=== PATIENT | female | born 1965 | race Caucasian/White ===

== ENCOUNTER 2016-10-12 07:07 | Inpatient (IN) | payer OTHER ==
[2016-10-12] MEDS ORDERED: HYDROmorphone INJ* 1 MG/ML CARPUJECT SYRINGE IV ONE (07:50)
[2016-10-12] MEDS ORDERED: NS 0.9% 1000 ML* 3,000 ML IV ONE (07:50)
[2016-10-12] MEDS ORDERED: Ondansetron INJ* 2 MG/ML VIAL IV ONE (07:50)
[2016-10-12] MEDS ORDERED: Ondansetron INJ* 2 MG/ML VIAL ONE ×2 (08:10→21:13)
[2016-10-12 08:17] LABS: Add Diff/Slide Review? Slide Review Added; Comments Flag Yes; Hematocrit 38 % (35-47); Hemoglobin 12.1 g/dl (12.0-16.0); Mean Corpuscular HGB Conc 32 g/dl (31-36); Mean Corpuscular Hemoglobin 25 pg (27-31); Mean Corpuscular Volume 79 fL (80-97); Red Blood Count 4.84 10^6/ul (4.0-5.4); Red Cell Distribution Width 16 % (10.5-15); White Blood Count 12.5 10^3/ul (3.5-10.8)
[2016-10-12 08:23] LABS: ALT 12 U/L (7-52); AST 14 U/L (13-39); Albumin 3.5 g/dL (3.2-5.2); Alkaline Phosphatase 108 U/L (34-104); Amylase 18 U/L (29-103); Anion Gap 9 mmol/L (2-11); Blood Urea Nitrogen 13 mg/dL (6-24); C Reactive Protein 38.31 mg/L (< 5.00); CO2 Carbon Dioxide 27 mmol/L (22-32); Calcium 9.4 mg/dL (8.6-10.3); Chloride 94 mmol/L (101-111); Creatine Kinase 67 U/L (10-223); EGFR African American 96.7 (>60); EGFR Non-African American 75.2 (>60); Globulin 3.9 g/dL (2-4); Lipase 12 U/L (11.0-82.0); Potassium 4.4 mmol/L (3.5-5.0); Sodium 130 mmol/L (133-145); Total Protein 7.4 g/dL (6.4-8.9)
[2016-10-12 08:27] LABS: Troponin I 0.01 ng/mL (<0.04)
[2016-10-12 08:31] LABS: Glucose 671 mg/dL (70-100)
--- NOTE | 2016-10-12 08:38 | RAD ---
HISTORY: Cough, chest pain, pneumonia COMPARISONS: May 16, 2015 VIEWS: 2: Frontal and lateral views of the chest. FINDINGS: CARDIOMEDIASTINAL SILHOUETTE: The cardiomediastinal silhouette is normal. JEANA: The jeana are normal. PLEURA: The costophrenic angles are sharp. No pleural abnormalities are noted. LUNG PARENCHYMA: The lung volumes are low. The lungs are clear. ABDOMEN: The upper abdomen is clear. There is no subphrenic gas. BONES AND SOFT TISSUES: No bone or soft tissue abnormalities are noted. OTHER: None. IMPRESSION: LOW LUNG VOLUMES. NO ACTIVE CARDIOPULMONARY DISEASE.
--- NOTE | 2016-10-12 08:56 | RAD ---
CLINICAL HISTORY: Right flank pain, renal calculus COMPARISON: None TECHNIQUE: Multiple contiguous axial CT scans were obtained of the abdomen and pelvis, without intravenous contrast enhancement. Coronal and sagittal multiplanar reformations are submitted for review. Oral contrast was not administered. FINDINGS: The study is limited by the lack of intravenous contrast. This limits evaluation of the solid organs and vasculature. LUNG BASES: The lung bases are clear. LIVER: The liver is normal in shape, size, contour, and attenuation. There is perihepatic ascites. BILE DUCTS: There is no intrahepatic or extrahepatic biliary dilatation. GALLBLADDER: A gallstone is noted. There is no pericholecystic inflammatory change. PANCREAS: The pancreas is normal, without mass or ductal dilatation. SPLEEN: Normal in size and appearance. UPPER GI TRACT: Evaluation of the gastrointestinal tract is limited by incomplete gastric distention. The upper GI tract is unremarkable. SMALL BOWEL AND MESENTERY: There is diffuse distention of small bowel. There is transitional decompressed distal ileum within a hernia sac of a right inguinal hernia. COLON: There is scattered diverticula of the descending colon. ADRENALS: Normal bilaterally. KIDNEYS: The kidneys are normal in shape, size, contour, and axis. There is no hydronephrosis or nephrolithiasis. Vascular calcifications are noted in the pelvis. BLADDER: The bladder is smooth in contour. PELVIC ORGANS: The uterus and adnexa are grossly normal for technique. AORTA: The aorta is normal. IVC: Unremarkable LYMPH NODES: There is no lymphadenopathy by size criteria. ABDOMINAL WALL: There is a right inguinal hernia containing small bowel with transition to decompressed small bowel in the hernia sac. BONES AND SOFT TISSUES: There are mild diffuse degenerative changes. OTHER: As noted above, there is a small amount of perihepatic ascites. IMPRESSION: 1. THERE IS MILD DISTENTION OF THE SMALL BOWEL WITH TRANSITION TO DECOMPRESSED SMALL BOWEL WITHIN A RIGHT INGUINAL HERNIA, WHICH MAY INDICATE EARLY OR PARTIAL OBSTRUCTION AT THE LEVEL OF THE HERNIA SAC.. 2. SMALL AMOUNT OF PERIHEPATIC ASCITES. 3. NO HYDRONEPHROSIS OR NEPHROLITHIASIS. 4. CHOLELITHIASIS
[2016-10-12] MEDS ORDERED: Insulin REGULAR(*) 1 UNITS UNIT IV PUSH ONE ×2 (09:12→12:10)
[2016-10-12 09:54] LABS: Urine Bacteria Absent (Absent); Urine Bilirubin Negative (Negative); Urine Glucose 3+(>=500 mg/dL) (Negative); Urine Nitrite Negative (Negative); Venous Bicarbonate HCO3 21.8 mmol/L (24-28)
[2016-10-12] MEDS ORDERED: cefTRIAXone(*) 1 GM in NS 0.9% 50 ML* 50 ML IVPB ONE (11:20)
[2016-10-12] MEDS ORDERED: cefTRIAXone VIAL(*) 1,000 MG in NS 0.9% 50 ML* 50 ML IVPB ONE (11:20)
[2016-10-12] MEDS ORDERED: NS 0.9% 1000 ML* 2,000 ML IV ONE (11:21)
[2016-10-12] MEDS ORDERED: cefTRIAXone(*) 1 GM ADVAN/BAG ONE (11:47)
[2016-10-12] MEDS ORDERED: cefTRIAXone VIAL(*) 1,000 MG in NS 0.9% 50 ML* 50 ML IVPB SCH (12:10)
[2016-10-12] MEDS ORDERED: Insulin GLARGINE(*) 1 UNITS UNIT SUBCUT ONE (12:10)
[2016-10-12] MEDS ORDERED: Dextrose 50% Syringe 50 ML* 25 GM/50 ML SYRINGE IV PUSH PRN (12:11)
[2016-10-12] MEDS ORDERED: NS 0.9% 1000 ML* 1,000 ML IV SCH (12:15)
[2016-10-12] MEDS: Morphine INJ* 2 MG/ML 1 ML CARPUJECT IV PRN (14:08)
[2016-10-12] MEDS: Ondansetron INJ* 2 MG/ML VIAL IV PRN (14:08)
[2016-10-12] MEDS: Heparin VIAL(*) 5000 UNITS/ML VIAL (FIVE THOUSAND) SUBCUT SCH ×2 (14:13→23:08)
--- NOTE | 2016-10-12 14:49 | HP ---
ADMISSION HISTORY AND PHYSICAL: DATE OF ADMISSION: 10/12/16 PRIMARY CARE PROVIDER: Unknown. ADMITTING PROVIDER: DAREN Davis CONSULTING SURGEON: Dr. Serjio Valdes. SUPERVISING PHYSICIAN: Dr. Khai Lam.* (DICTATED BY DAREN DAVIS) CHIEF COMPLAINT: Abdominal pain and intractable vomiting. HISTORY OF PRESENT ILLNESS: This is a 51-year-old female with a history of insulin- dependent diabetes, who presented to the emergency department with sudden onset right lower quadrant abdominal pain and intractable vomiting. The patient reports that she initially had some right lower quadrant pain about a week ago, but this spontaneously resolved and then the pain suddenly recurred at approximately 3 a.m. this morning with associated severe nausea and vomiting. Denies associated shortness of breath. She states that her last bowel movement was yesterday, which generally suffers from chronic constipation. The patient states that she has been afebrile but does say that she has been having some difficulty urinating recently. She denies any other recent illnesses. The patient states that she has a wound on her right heel and has noted some increased redness in the area over the last couple of weeks. There has been no associated drainage, however. She denies any associated pain, but she does have significant peripheral neuropathy. PAST MEDICAL HISTORY: 1. Insulin-dependent diabetes. 2. Peripheral neuropathy. 3. Remote history of substance abuse. PAST SURGICAL HISTORY: Left toe surgery. HOME MEDICATIONS: 1. Lantus 100 units each morning. 2. Gabapentin 600 mg p.o. 3 times daily. 3. Cymbalta 30 mg p.o. daily. SOCIAL HISTORY: The patient quit smoking about 2 weeks ago. She has about a 30 - pack-year smoking history. Denies regular alcohol consumption. She does have a history of substance abuse but denies any current use. She lives at home with her , daughter, granddaughter, and son-in-law. REVIEW OF SYSTEMS: As noted above in HPI and otherwise negative. PHYSICAL EXAMINATION GENERAL: This is an ill-appearing middle-aged female, who is lethargic but appears slightly uncomfortable, accompanied by her daughter. VITAL SIGNS: Initially, temperature 97.6 degrees Fahrenheit, pulse 72 beats per minute, respiratory rate 15 per minute, oxygen saturation 96% on room air, blood pressure 161/76 mmHg. HEENT: Head is normocephalic and atraumatic. RESPIRATORY: Lungs are clear to auscultation without wheezes, crackles, or rhonchi. CARDIOVASCULAR: Heart has regular rate and rhythm without murmurs, rubs, or gallops. ABDOMEN: Hypoactive bowel sounds present. The patient does have tenderness to palpation in the right lower quadrant and right flank region. She also has a noted fullness in the right inguinal region, which is also tender to palpation. EXTREMITIES: No lower extremity edema. SKIN: Limited exam, shows no concerning rashes or lesions. LABORATORY DATA: CBC shows a white blood cell count of 12,500, hemoglobin of 12.1, and platelet count of 299,000. VBG shows a pH of 7.31, pCO2 is normal at 44, and a bicarb of 21.8. Comprehensive metabolic panel is significant for a sodium of 130 mmol/L, potassium 4.4 mmol/L. Serum bicarb was 27 at the time of admission, BUN of 13, creatinine of 0.81, and estimated GFR of 75. Random glucose of 671 mg/dL. Total bilirubin of 2.0, alk phos of 108. CRP is 38. Lipase is negative. Beta HCG is negative. Urinalysis is positive for 2+ protein, trace ketones, 1+ blood, 3+ leuk esterase , 3+ white blood cells, 1+ red blood cells, and 3+ glucose. IMAGING: Chest x-ray shows no acute process. CT of the abdomen and pelvis shows mild distention of the small bowel with transition to decompressed small bowel within the right inguinal hernia, which may indicate early or partial obstruction at the level of the hernia sac. She also has a small amount of perihepatic ascites, no hydro-nephrolithiasis noted but she does have some cholelithiasis. ASSESSMENT AND PLAN: This is a 51-year-old female with a history of insulin- dependent diabetes, who presents in mild DKA with concern for partial small bowel obstruction secondary to an incarcerated hernia. 1. Partial small bowel obstruction with evidence of incarcerated hernia - consult call made to Dr. Serjio Valdes to please evaluate the patient. At this time, we will maintain n.p.o. status. No evidence of ischemic bowel as her lactic acid is normal at 0.9. She does have some tenderness to palpation, but it is certainly as not out of proportion with the remainder of her presentation. We will control symptoms with antiemetics and continue IV fluids. 2. DKA - this appears to be mild, pH was 7.31 on venous blood gas collected several hours ago. Initial glucose was 671 and an initial lab actually does not show an elevated anion gap. She received 10 units IV of insulin and fluids. Her glucose has improved down to 407 mg/dL. We will plan to repeat a basic metabolic panel at this time. They did not believe that she will need an insulin drip in order to correct this. We will give her 60% of her usual Lantus as she will be n.p.o. likely the rest of today and an additional bolus of 10 units of regular insulin, continue to monitor her glucose every 2 hours, and correct continued hyperglycemia on a sliding scale with lispro. We will also check a hemoglobin A1c to see what her baseline camara. 3. Suspected urinary tract infection - urinalysis is suggestive of a urinary tract infection. We will empirically start ceftriaxone until culture results are available. 4. Right foot wound - the patient does have some breakdown over her right heel with mild surrounding erythema, no drainage appreciated. Ceftriaxone should appropriately cover for most staph and strep species. We will keep the area covered but does not appear to be significantly infected at this time. 5. Code status - the patient is full code. 6. DVT prophylaxis. She is at moderate risk for DVT and will be placed on heparin 5000 units q.8 hours. 7. Healthcare proxy is the patient's . DISPOSITION: The patient is being admitted to inpatient medical service for mild DKA as well as the partial small bowel obstruction with concern for incarcerated right inguinal hernia with pending surgical consultation. Anticipated length of stay is greater than 2 days. DAREN DAVIS [id number]/[facility] #: [id number] DEWEY
--- NOTE | 2016-10-12 14:57 | ED ---
Shannan Blanca Matthew, scribed for Gus Hobbs MD on 10/12/16 at 0757 . Back Pain - HPI Summary HPI Summary: A 51 y/o female presents to the ED with lower back pain since a week ago. The pain is rated 10/10 in severity, and radiates into the groin. Associated symptoms include vomiting since this morning, chills, and cough since two weeks ago. The patient denies dysuria, hematuria, fever, diarrhea and recent travel. Her pain worsens with coughing and she only has chest pain with vomiting. PMHx includes diabetes. She also has a chronic right foot erythema and her LEs bilaterally are chronically numb. - History of Current Complaint Chief Complaint: EDChestPainROMI Stated Complaint: CHEST PAIN Time Seen by Provider: 10/12/16 07:35 Hx Obtained From: Patient, Family/Car Lot Attendant - Daughter Hx Last Menstrual Period: 04/13/15 Onset/Duration: Gradual Onset, Lasting Weeks - 1, Still Present Onset/Duration: Started Weeks Ago - 1, Atraumatic, Still Present Timing: Constant Back Pain Location: Is Discrete @ - lower back Severity Initially: Moderate Severity Currently: Moderate Pain Intensity: 10 Pain Scale Used: 0-10 Numeric Aggravating Symptom(s): Cough Alleviating Symptom(s): Nothing Associated Signs And Symptoms: Positive: Flank Pain - right, Other - Vomiting, Chills. Negative: Fever - Allergies/Home Medications Allergies/Adverse Reactions: Allergies Allergy/AdvReac Type Severity Reaction Status Date / Time Miconazole [From Monistat] Allergy Blisters Verified 07/10/16 09:40 Home Medications: Home Medications DULoxetine DR CAP* [Cymbalta CAP*] 30 mg PO DAILY 10/12/16 [History Confirmed ] Gabapentin TAB(NF) [Neurontin 600 mg TAB(NF)] 600 mg PO TID 10/12/16 [History Confirmed 10/12/16] PMH/Surg Hx/FS Hx/Imm Hx Endocrine/Hematology History: Reports: Hx Diabetes - type 2 Denies: Hx Anticoagulant Therapy, Hx Blood Disorders, Hx Blood Transfusions, Hx Bone Marrow Disease, Hx Thyroid Disease, Hx Anemia, Hx Unexplained Bleeding Cardiovascular History: Denies: Hx Hypertension, Hx Pacemaker/ICD Respiratory History: Denies: Hx Asthma, Hx Chronic Obstructive Pulmonary Disease (COPD) GI History: Denies: Hx Ulcer History: Denies: Hx Renal Disease Sensory History: Reports: Hx Contacts or Glasses Denies: Hx Hearing Aid Opthamlomology History: Reports: Hx Contacts or Glasses Psychiatric History: Denies: Hx Panic Disorder - Surgical History Surgery Procedure, Year, and Place: LEFT FOOT [id number] Infectious Disease History: Denies: Hx Hepatitis, Hx Human Immunodeficiency Virus (HIV), History Other Infectious Disease, Traveled Outside the [place] in Last 30 Days - Family History Known Family History: Positive: Diabetes - Social History Alcohol Use: None Substance Use Type: Reports: None Smoking Status (MU): Never Smoked Tobacco Review of Systems Positive: Chills. Negative: Fever Eyes: Negative ENT: Negative Positive: Chest Pain - Only w/ vomiting Positive: Cough Positive: Vomiting Genitourinary: Negative Negative: dysuria, hematuria Positive: Myalgia - lower back pain Skin: Other - Right foot erythema Neurological: Negative Psychological: Normal All Other Systems Reviewed And Are Negative: Yes Physical Exam - Summary Physical Exam Summary: The patient is in mild distress. The skin is diaphoretic. HEENT: The head is normocephalic and atraumatic. The pupils are equal and reactive. The conjunctivae are clear and without drainage. Nares are patent and without drainage. Mouth reveals dryt mucous membranes and the throat is without erythema and exudate. The external ears are intact. The ear canals are patent and without drainage. The tympanic membranes are intact. Neck is supple with full range of motion and non-tender. There are no carotid bruits. There is no neck vein distension. Respiratory: Chest is non-tender. Lungs are clear to auscultation and breath sounds are symmetrical and equal. Cardiovascular: Heart is regular rate and rhythm. There is no murmur or rub auscultated. There is no peripheral edema and pulses are symmetrical and equal. Abdomen: The abdomen is soft and non-tender. There are normal bowel sounds heard in all four quadrants and there is no organomegaly palpated. The patient has right CVA tenderness. Musculoskeletal: Extremities are non-tender with full range of motion. There is good capillary refill 2+. There is no peripheral edema or calf tenderness elicited. The patient has good distal pulses. She has erythema of the right foot , which is warm to touch and involves the heel. Neurological: Patient is alert and oriented to person, place and time. The patient has symmetrical motor strength in all four extremities. Cranial nerves are grossly intact. Deep tendon reflexes are symmetrical and equal in all four extremities. Psychiatric: The patient is anxious. The patient's eyes were closed when talking to her. Her daughter answered all of the questions. Triage Information Reviewed: Yes Vital Signs On Initial Exam: Initial Vitals Temp Pulse Resp BP Pulse Ox 97.6 F 72 15 161/76 96 10/12/16 07:57 10/12/16 07:57 10/12/16 07:57 10/12/16 07:57 10/12/16 07:57 Vital Signs Reviewed: Yes Diagnostics - Vital Signs Vital Signs Temp Pulse Resp BP Pulse Ox 10/12/16 08:06 10 10/12/16 07:57 97.6 F 72 15 161/76 96 - Laboratory Lab Results: Lab Results 10/12/16 10/12/16 10/12/16 Range/Units 07:35 07:35 07:35 WBC 12.5 H (3.5-10.8) 10^3/ul RBC 4.84 (4.0-5.4) 10^6/ul Hgb 12.1 (12.0-16.0) g/dl Hct 38 (35-47) % MCV 79 L (80-97) fL MCH 25 L (27-31) pg MCHC 32 (31-36) g/dl RDW 16 H (10.5-15) % Plt Count 299 (150-450) 10^3/ul MPV Not Reportable Neut % (Auto) 89.1 H (38-83) % Lymph % (Auto) 6.4 L (25-47) % Woodson % (Auto) 3.8 (1-9) % Eos % (Auto) 0.3 (0-6) % Baso % (Auto) 0.4 (0-2) % Absolute Neuts (auto) 11.2 H (1.5-7.7) 10^3/ul Absolute Lymphs (auto) 0.8 L (1.0-4.8) 10^3/ul Absolute Monos (auto) 0.5 (0-0.8) 10^3/ul Absolute Eos (auto) 0 (0-0.6) 10^3/ul Absolute Basos (auto) 0.1 (0-0.2) 10^3/ul Absolute Nucleated RBC 0.02 10^3/ul Nucleated RBC % 0.2 VBG pH (7.33-7.43) VBG pCO2 (41-51) mmHg VBG pO2 (35-45) mmHg VBG HCO3 (24-28) mmol/L VBG O2 Saturation (70-80) % VBG Base Excess (0-4) Sodium 130 L (133-145) mmol/L Potassium 4.4 (3.5-5.0) mmol/L Chloride 94 L (101-111) mmol/L Carbon Dioxide 27 (22-32) mmol/L Anion Gap 9 (2-11) mmol/L BUN 13 (6-24) mg/dL Creatinine 0.81 (0.51-0.95) mg/dL Est GFR ( Amer) 96.7 (>60) Est GFR (Non-Af Amer) 75.2 (>60) BUN/Creatinine Ratio 16.0 (8-20) Glucose 671 H* (70-100) mg/dL Lactic Acid 0.9 (0.5-2.0) mmol/L Calcium 9.4 (8.6-10.3) mg/dL Total Bilirubin 2.00 H (0.2-1.0) mg/dL AST 14 (13-39) U/L ALT 12 (7-52) U/L Alkaline Phosphatase 108 H (34-104) U/L Total Creatine Kinase 67 (10-223) U/L Troponin I 0.01 (<0.04) ng/mL C-Reactive Protein 38.31 H (< 5.00) mg/L B-Natriuretic Peptide ( - 100) pg/mL Total Protein 7.4 (6.4-8.9) g/dL Albumin 3.5 (3.2-5.2) g/dL Globulin 3.9 (2-4) g/dL Albumin/Globulin Ratio 0.9 L (1-3) Amylase 18 L (29-103) U/L Lipase 12 (11.0-82.0) U/L Beta HCG, Quant < 0.60 mIU/mL Urine Color Urine Appearance Urine pH (5-9) Ur Specific [place] (1.010-1.030) Urine Protein (Negative) Urine Ketones (Negative) Urine Blood (Negative) Urine Nitrate (Negative) Urine Bilirubin (Negative) Urine Urobilinogen (Negative) Ur Leukocyte Esterase (Negative) Urine WBC (Auto) (Absent) Urine RBC (Auto) (Absent) Ur Squamous Epith Cells (Absent) Urine Bacteria (Absent) Urine Glucose (Negative) 10/12/16 10/12/16 10/12/16 Range/Units 07:35 08:41 08:41 WBC (3.5-10.8) 10^3/ul RBC (4.0-5.4) 10^6/ul Hgb (12.0-16.0) g/dl Hct (35-47) % MCV (80-97) fL MCH (27-31) pg MCHC (31-36) g/dl RDW (10.5-15) % Plt Count (150-450) 10^3/ul MPV Neut % (Auto) (38-83) % Lymph % (Auto) (25-47) % Woodson % (Auto) (1-9) % Eos % (Auto) (0-6) % Baso % (Auto) (0-2) % Absolute Neuts (auto) (1.5-7.7) 10^3/ul Absolute Lymphs (auto) (1.0-4.8) 10^3/ul Absolute Monos (auto) (0-0.8) 10^3/ul Absolute Eos (auto) (0-0.6) 10^3/ul Absolute Basos (auto) (0-0.2) 10^3/ul Absolute Nucleated RBC 10^3/ul Nucleated RBC % VBG pH 7.31 L (7.33-7.43) VBG pCO2 44 (41-51) mmHg VBG pO2 84 H (35-45) mmHg VBG HCO3 21.8 L (24-28) mmol/L VBG O2 Saturation 97.7 H (70-80) % VBG Base Excess -3.9 L (0-4) Sodium (133-145) mmol/L Potassium (3.5-5.0) mmol/L Chloride (101-111) mmol/L Carbon Dioxide (22-32) mmol/L Anion Gap (2-11) mmol/L BUN (6-24) mg/dL Creatinine (0.51-0.95) mg/dL Est GFR ( Amer) (>60) Est GFR (Non-Af Amer) (>60) BUN/Creatinine Ratio (8-20) Glucose (70-100) mg/dL Lactic Acid (0.5-2.0) mmol/L Calcium (8.6-10.3) mg/dL Total Bilirubin (0.2-1.0) mg/dL AST (13-39) U/L ALT (7-52) U/L Alkaline Phosphatase (34-104) U/L Total Creatine Kinase (10-223) U/L Troponin I (<0.04) ng/mL C-Reactive Protein (< 5.00) mg/L B-Natriuretic Peptide 76 ( - 100) pg/mL Total Protein (6.4-8.9) g/dL Albumin (3.2-5.2) g/dL Globulin (2-4) g/dL Albumin/Globulin Ratio (1-3) Amylase (29-103) U/L Lipase (11.0-82.0) U/L Beta HCG, Quant mIU/mL Urine Color Yellow Urine Appearance Cloudy Urine pH 5.0 (5-9) Ur Specific [place] 1.032 H (1.010-1.030) Urine Protein 2+(100 mg/dl) H (Negative) Urine Ketones Trace H (Negative) Urine Blood 1+ H (Negative) Urine Nitrate Negative (Negative) Urine Bilirubin Negative (Negative) Urine Urobilinogen Negative (Negative) Ur Leukocyte Esterase 3+ H (Negative) Urine WBC (Auto) 3+(>20/hpf) H (Absent) Urine RBC (Auto) 1+(3-5/hpf) H (Absent) Ur Squamous Epith Cells Present H (Absent) Urine Bacteria Absent (Absent) Urine Glucose 3+(>=500 mg/dl) H (Negative) 10/12/16 Range/Units 11:35 WBC (3.5-10.8) 10^3/ul RBC (4.0-5.4) 10^6/ul Hgb (12.0-16.0) g/dl Hct (35-47) % MCV (80-97) fL MCH (27-31) pg MCHC (31-36) g/dl RDW (10.5-15) % Plt Count (150-450) 10^3/ul MPV Neut % (Auto) (38-83) % Lymph % (Auto) (25-47) % Woodson % (Auto) (1-9) % Eos % (Auto) (0-6) % Baso % (Auto) (0-2) % Absolute Neuts (auto) (1.5-7.7) 10^3/ul Absolute Lymphs (auto) (1.0-4.8) 10^3/ul Absolute Monos (auto) (0-0.8) 10^3/ul Absolute Eos (auto) (0-0.6) 10^3/ul Absolute Basos (auto) (0-0.2) 10^3/ul Absolute Nucleated RBC 10^3/ul Nucleated RBC % VBG pH (7.33-7.43) VBG pCO2 (41-51) mmHg VBG pO2 (35-45) mmHg VBG HCO3 (24-28) mmol/L VBG O2 Saturation (70-80) % VBG Base Excess (0-4) Sodium (133-145) mmol/L Potassium (3.5-5.0) mmol/L Chloride (101-111) mmol/L Carbon Dioxide (22-32) mmol/L Anion Gap (2-11) mmol/L BUN (6-24) mg/dL Creatinine (0.51-0.95) mg/dL Est GFR ( Amer) (>60) Est GFR (Non-Af Amer) (>60) BUN/Creatinine Ratio (8-20) Glucose 407 H (70-100) mg/dL Lactic Acid (0.5-2.0) mmol/L Calcium (8.6-10.3) mg/dL Total Bilirubin (0.2-1.0) mg/dL AST (13-39) U/L ALT (7-52) U/L Alkaline Phosphatase (34-104) U/L Total Creatine Kinase (10-223) U/L Troponin I (<0.04) ng/mL C-Reactive Protein (< 5.00) mg/L B-Natriuretic Peptide ( - 100) pg/mL Total Protein (6.4-8.9) g/dL Albumin (3.2-5.2) g/dL Globulin (2-4) g/dL Albumin/Globulin Ratio (1-3) Amylase (29-103) U/L Lipase (11.0-82.0) U/L Beta HCG, Quant mIU/mL Urine Color Urine Appearance Urine pH (5-9) Ur Specific [place] (1.010-1.030) Urine Protein (Negative) Urine Ketones (Negative) Urine Blood (Negative) Urine Nitrate (Negative) Urine Bilirubin (Negative) Urine Urobilinogen (Negative) Ur Leukocyte Esterase (Negative) Urine WBC (Auto) (Absent) Urine RBC (Auto) (Absent) Ur Squamous Epith Cells (Absent) Urine Bacteria (Absent) Urine Glucose (Negative) Result Diagrams: 10/12/16 07:35 10/12/16 07:35 Lab Statement: Any lab studies that have been ordered have been reviewed, and results considered in the medical decision making process. - Radiology CXR Xray Interpretation: No Acute Changes - IMPRESSION: LOW LUNG VOLUMES. NO ACTIVE CARDIOPULMONARY DISEASE. Radiology Interpretation Completed By: Radiologist - CT A/P W/O CT CT Interpretation: Positive (See Comments) - IMPRESSION: 1. THERE IS MILD DISTENTION OF THE SMALL BOWEL WITH TRANSITION TO DECOMPRESSED SMALL BOWEL WITHIN A RIGHT INGUINAL HERNIA, WHICH MAY INDICATE EARLY OR PARTIAL OBSTRUCTION AT THE LEVEL OF THE HERNIA SAC.. 2. SMALL AMOUNT OF PERIHEPATIC ASCITES. 3. NO HYDRONEPHROSIS OR NEPHROLITHIASIS. 4. CHOLELITHIASIS CT Interpretation Completed By: Radiologist Re-Evaluation - Re-Evaluation First Eval Re-Evaluation Time: 11:21 Change: Unchanged Comment: The patient continues to have right sided pain. Julio Cesar consult patient for possible admission. Back Pain Course/Dx - Course Assessment/Plan: A 51 y/o female presents to the ED with lower back pain since a week ago. Associated symptoms include vomiting since this morning, chills, and cough since two weeks ago. The patient denies dysuria, hematuria, fever, diarrhea and recent travel. CXR shows low lung volumes. no active cardiopulmonary disease. CT A/P W/O CT shows there is mild distention of the small bowel with transition to decompressed small bowel within a right inguinal hernia, which may indicate early or partial obstruction at the level of the hernia sac. Labs were reviewed. In the ED course the patient was given Dilaudid , 5L IV fluids, Insulin, Zofran, and Rocephin. Discussed the case with the hospitalist who will admit the patient into his services. - Diagnoses Differential Diagnosis/HQI/PQRI: Positive: Renal Colic, Other - obstruction, pyleonephritis, dka, dehydration Provider Diagnoses: Hyperglycemia, Abdominal pain, UTI (urinary tract infection) - Provider Notifications Discussed Care of Patient With: Serafin MERCEDES at 11:44 -- Notified of patient's history and will admit the patient. Discharge - Discharge Plan Condition: Stable Disposition: ADMITTED TO [facility] documentation as recorded by the Shannan dailey Matthew accurately reflects the service I personally performed and the decisions made by , Gus Hobbs MD.
[2016-10-12 15:36] LABS: BUN/Creatinine Ratio 15.8 (8-20); Calcium 8.4 mg/dL (8.6-10.3); EGFR Non-African American 80.9 (>60); Potassium 3.7 mmol/L (3.5-5.0)
[2016-10-12] MEDS: Insulin LISPRO* 1 UNITS UNIT SUBCUT SCH ×2 (15:44→23:10)
[2016-10-12] MEDS: PROCHLORPERAZINE INJ 5 MG/ML 2 ML VIAL IV PRN ×2 (17:01→22:04)
[2016-10-12] MEDS ORDERED: Buffered Lidocaine 1% SYR 3ML* 3 ML/SYR SYRINGE INTRADERM ONE (18:23)
[2016-10-12] MEDS ORDERED: Midazolam* 1 MG/ML 2 ML VIAL (2 MG) ONE (18:33)
[2016-10-12] MEDS ORDERED: Clindamycin 900 MG IVPREMIX(* 900 MG/50 ML SDV IV ONE (19:09)
[2016-10-12] MEDS ORDERED: Lidocaine 2% MPF* 2 ML VIAL ONE (19:21)
[2016-10-12] MEDS ORDERED: fentaNYL* 50 MCG/ML 2 ML VIAL (100 MCG VIAL) ONE ×2 (19:21→20:36)
[2016-10-12] MEDS ORDERED: Cisatracurium* 2 MG/ML MDV 10 ML ONE (19:21)
[2016-10-12] MEDS ORDERED: Dexamethasone IV* 4 MG/ML 1 ML (4 MG) ONE (19:21)
[2016-10-12] MEDS ORDERED: Propofol* 10 MG/ML 20 ML BTL IV PUSH ONE (19:21)
[2016-10-12] MEDS ORDERED: Famotidine IV* 10 MG/ML 2 ML (20 mg) ONE (19:21)
[2016-10-12] MEDS ORDERED: Insulin REGULAR(*) 1 UNITS UNIT ONE (20:41)
[2016-10-12] MEDS ORDERED: Bupivacaine 0.5% SDV PF* 30 ML VIAL ONE (21:07)
--- NOTE | 2016-10-12 21:25 | SURGPN ---
Brief Operative Note - Surgery Procedures: OPERATIVE REPORT PRE-OP: Incarcerated right groin hernia with small bowel obstruction POST-OP: Incarcerated right indirect inguinal hernia. Hernia sac not opened. PROCEDURE: open repair with mesh of incarcerated right indirect inguinal hernia SURGEON: MD Keisha ANESTHESIA: General with Local with Dr. Estrella ASST: DAREN Cantu IVF: 1400 cc crystalloid EBL: min SPECIMEN: none DRAIN: none WOUND CLASS: Clean COMPLICATIONS: none TO PACU
--- NOTE | 2016-10-12 21:33 | CONS ---
CONSULTATION REPORT: DATE OF CONSULT: 10/12/16 REFERRING PROVIDER: DAREN Lake, hospitalist. LOCATION: The patient was seen in the floor bed, room 331. REASON FOR CONSULTATION: Tender nonreducible bulge in the right groin, nausea, vomiting and abdominal pain. HISTORY OF PRESENT ILLNESS: Ms. Lesly Stockton is a 51-year-old woman with a long history of insulin-dependent diabetes, presented to the emergency room with an onset of right flank and right lower quadrant abdominal discomfort with a noted bulge in the right groin. She noted a mass in the last several days, more recently she developed nausea and vomiting and generalized abdominal discomfort. She has had no hematemesis. She has had no fevers, shakes or chills. Not had a bowel movement, although she states she only has a bowel movement once a week. She has not passed any flatus recently. She has also had some difficulty urinating recently. According to her daughter, she has had longstanding insulin-dependent diabetes and also has a long history of poor blood sugar control, with the blood sugars possibly running into 300s at times. Today, her blood sugar on presentation to the emergency room was 407. She had a normal lactic acid. Electrolytes, BUN, and creatinine were within normal limits and she is not noted to be acidotic. Urinalysis also showed some white cells, red cells, and leukocyte esterase concerning for a urinary tract infection. Due to the findings in the right groin, she underwent a CT scan of the abdomen and pelvis. I did review these images. It shows distention of the proximal small bowel with distal decompressed small bowel with the transition zone noted in what appears to be a rather large right inguinal hernia. There is a small amount of fluid around the liver but no evidence of free air. IV or oral contrast was not administered. She is being admitted to the hospitalist service. Surgical consultation was obtained for evaluation of what appears to be a right groin hernia, most likely an inguinal, but also possibility of an incarcerated right femoral hernia, with associated apparent bowel obstruction. PAST MEDICAL HISTORY: 1. Insulin-dependent diabetes. 2. Peripheral neuropathy. 3. Remote history of substance abuse. PAST SURGICAL HISTORY: Left toe surgery. She has had no abdominal surgery. MEDICATIONS: 1. Lantus 100 units each morning. 2. Gabapentin 600 mg t.i.d. 3. Cymbalta 30 mg p.o. q.h.s. ALLERGIES: She has no known drug allergies. SOCIAL HISTORY: She lives alone. She is disabled. She quit smoking about 2 weeks ago, but has a [id number] smoking history. She does not use alcohol. She has a remote history of substance abuse. She lives at home with her , daughter, and son-in-law. REVIEW OF SYSTEMS: Otherwise as above. GI: She states she has had persistent nausea and vomiting in the last several days. She has not had prior abdominal surgery. PHYSICAL EXAM: Temperature 97.6, pulse 60, blood pressure 134/69. General: She is a slender female who appears to be somewhat older than her stated age. She is somewhat disoriented due to recently receiving a narcotic. Her daughter is present at the bedside. She is oriented to person, place, and time and appropriately answers questions. HEENT: Her sclerae are anicteric. Oral mucosa was dry. Lungs: Clear to auscultation with normal respiratory effort. Heart with regular rate and rhythm without murmurs, rubs, or gallops. Abdomen: Soft, slightly distended. She had diminished bowel sounds throughout. There is no prior surgical incisions. She has tenderness without rebound, guarding, or peritoneal signs. In the right groin, she has a rather large bulge extending down into the labia, which is tender and nonreducible and quite firm. There is no overlying skin changes. This appears to be more of an inguinal hernia than a femoral hernia. I appreciate no left bulge or groin hernia. IMPRESSION: 1. Large incarcerated right groin hernia, most likely an inguinal hernia as opposed to a femoral hernia, although this is sometimes difficult to tell clinically as well as by the CT scan. This has some proximal small bowel distention and there is collapsed bowel distal to this. She has been having nausea, vomiting, generalized abdominal pain, and some free intraabdominal fluid and I suspect that this is causing a small bowel obstruction. Less likely is that she has ischemia and/or strangulation in light of her overall clinical appearance. In light of her nausea and vomiting, blood sugar elevation and her symptoms, I recommend that we proceed with a right groin exploration with hernia repair and reduction of the small bowel. 2. Possible urinary tract infection. Possible pyelonephritis, although she has no fever, only a slight white blood cell count but some of these also could be associated with nausea, vomiting, and her blood sugar elevation. I discussed this with her daughter and her. I recommended that we do proceed with a right groin incision with reduction of the hernia with possible mesh placement and repair of the hernia. If there is a bowel that has become compromised, this may require a bowel resection. I discussed this with them. If this cannot be reduced through a groin incision, may require an exploratory laparotomy with its inherent increased risks of bleeding, infection, abdominal abscess formation, injury to peritoneal and retroperitoneal structures and hernia recurrence. In addition, she is at increased risk for wound infection due to her diabetes as well as increased risk for general anesthesia. I discussed her care with Serafin Austin from the hospitalist service. She feels that she is optimized as best as possible. She is not acidotic. Her blood sugars are trending downward now that she has been treated aggressively with fluid as well as intravenous insulin, and at this point, we will proceed with the surgery this evening. CC: [facility]; Dr. Jerel Chatterjee, [facility].* [id number]/[facility] #: [id number] MTDD
[2016-10-12] MEDS ORDERED: PROCHLORPERAZINE INJ 5 MG/ML 2 ML VIAL ONE (22:03)
[2016-10-12] MEDS: NS 0.9% 1000 ML* 1,000 ML IV SCH (22:05)
[2016-10-12] MEDS ORDERED: Morphine INJ* 2 MG/ML 1 ML CARPUJECT IV PRN (22:09)
[2016-10-13] MEDS: Insulin LISPRO* 1 UNITS UNIT SUBCUT SCH ×6 (01:25→20:55)
[2016-10-13] MEDS: NS 0.9% 1000 ML* 1,000 ML IV SCH (04:50)
[2016-10-13] MEDS: Heparin VIAL(*) 5000 UNITS/ML VIAL (FIVE THOUSAND) SUBCUT SCH ×3 (05:05→22:45)
[2016-10-13] MEDS ORDERED: NS 0.9% 1000 ML* 1,000 ML IV ONE ×2 (06:40→13:01)
[2016-10-13 07:12] LABS: Hematocrit 31 % (35-47); Hemoglobin 9.9 g/dl (12.0-16.0); Mean Corpuscular HGB Conc 32 g/dl (31-36); Mean Corpuscular Hemoglobin 25 pg (27-31); Mean Corpuscular Volume 79 fL (80-97); Mean Platelet Volume 8 um3 (7.4-10.4); Red Blood Count 3.93 10^6/ul (4.0-5.4); Red Cell Distribution Width 16 % (10.5-15)
[2016-10-13 07:29] LABS: Albumin 2.7 g/dL (3.2-5.2); Calcium 7.7 mg/dL (8.6-10.3); EGFR African American 90.2 (>60); EGFR Non-African American 70.1 (>60); Globulin 2.9 g/dL (2-4); Potassium 3.8 mmol/L (3.5-5.0); Total Bilirubin 0.8 mg/dL (0.2-1.0); Total Protein 5.6 g/dL (6.4-8.9)
[2016-10-13] MEDS: Morphine INJ* 2 MG/ML 1 ML CARPUJECT IV PRN ×2 (07:53→17:22)
--- NOTE | 2016-10-13 08:18 | PN ---
Progress Note - Progress Note SOAP: Subjective: She feels much better-no abdominal pain and the nausea has resolved. She had a small BM last night but no flatus. She complains only of incisional pain He urine output was low overnight and she is receiving IV bolus now. Objective: Temp Pulse Resp BP Pulse Ox 98.2 F 72 16 131/57 100 10/13/16 07:44 10/13/16 07:44 10/13/16 07:53 10/13/16 07:44 10/13/16 07:44 Intake & Output 10/11/16 10/12/16 10/13/16 10/14/16 06:59 06:59 06:59 06:59 Intake Total 4310 Output Total 150 Balance 4160 Weight 170 lb Intake: IV Fluids 4310 0.9 700 NS (0.9%) 908 d5lr 900 lr 800 Oral 0 Output: Urine 0 Rodgers 150 Other: Date of Last Bowel 10/13/16 Movement # Bowel Movements 1 Estimated Stool Amount Small PEX: Comfortable Awake and alert Abd is soft and non-distended. There are few bowel sounds present throughout and they are normoactive, not high pitched or tinkling. There is no tenderness. Dressing in the right groin is intact and dry. Laboratory Last Values WBC 9.0 10^3/ul (3.5-10.8) 10/13/16 06:18 RBC 3.93 10^6/ul (4.0-5.4) L 10/13/16 06:18 Hgb 9.9 g/dl (12.0-16.0) L 10/13/16 06:18 Hct 31 % (35-47) L 10/13/16 06:18 MCV 79 fL (80-97) L 10/13/16 06:18 MCH 25 pg (27-31) L 10/13/16 06:18 MCHC 32 g/dl (31-36) 10/13/16 06:18 RDW 16 % (10.5-15) H 10/13/16 06:18 Plt Count 246 10^3/ul (150-450) 10/13/16 06:18 MPV 8 um3 (7.4-10.4) 10/13/16 06:18 Neut % (Auto) 88.7 % (38-83) H 10/13/16 06:18 Lymph % (Auto) 5.3 % (25-47) L 10/13/16 06:18 [place] % (Auto) 5.9 % (1-9) 10/13/16 06:18 Eos % (Auto) 0 % (0-6) 10/13/16 06:18 Baso % (Auto) 0.1 % (0-2) 10/13/16 06:18 Absolute Neuts (auto) 8.0 10^3/ul (1.5-7.7) H 10/13/16 06:18 Absolute Lymphs (auto) 0.5 10^3/ul (1.0-4.8) L 10/13/16 06:18 Absolute Monos (auto) 0.5 10^3/ul (0-0.8) 10/13/16 06:18 Absolute Eos (auto) 0 10^3/ul (0-0.6) 10/13/16 06:18 Absolute Basos (auto) 0 10^3/ul (0-0.2) 10/13/16 06:18 Absolute Nucleated RBC 0.01 10^3/ul 10/13/16 06:18 Nucleated RBC % 0.1 10/13/16 06:18 VBG pH 7.31 (7.33-7.43) L 10/12/16 08:41 VBG pCO2 44 mmHg (41-51) 10/12/16 08:41 VBG pO2 84 mmHg (35-45) H 10/12/16 08:41 VBG HCO3 21.8 mmol/L (24-28) L 10/12/16 08:41 VBG O2 Saturation 97.7 % (70-80) H 10/12/16 08:41 VBG Base Excess -3.9 (0-4) L 10/12/16 08:41 Sodium 139 mmol/L (133-145) 10/13/16 06:18 Potassium 3.8 mmol/L (3.5-5.0) 10/13/16 06:18 Chloride 109 mmol/L (101-111) 10/13/16 06:18 Carbon Dioxide 25 mmol/L (22-32) 10/13/16 06:18 Anion Gap 5 mmol/L (2-11) 10/13/16 06:18 BUN 12 mg/dL (6-24) 10/13/16 06:18 Creatinine 0.86 mg/dL (0.51-0.95) 10/13/16 06:18 Est GFR ( Amer) 90.2 (>60) 10/13/16 06:18 Est GFR (Non-Af Amer) 70.1 (>60) 10/13/16 06:18 BUN/Creatinine Ratio 14.0 (8-20) 10/13/16 06:18 Glucose 175 mg/dL (70-100) H 10/13/16 06:18 POC Glucose (mg/dL) 183 mg/dL (74-106) H 10/13/16 06:48 Hemoglobin A1c 15.1 % (Less than 6.0) H 10/12/16 15:04 Lactic Acid 1.0 mmol/L (0.5-2.0) 10/12/16 15:04 Calcium 7.7 mg/dL (8.6-10.3) L 10/13/16 06:18 Total Bilirubin 0.80 mg/dL (0.2-1.0) 10/13/16 06:18 AST 11 U/L (13-39) L 10/13/16 06:18 ALT 8 U/L (7-52) 10/13/16 06:18 Alkaline Phosphatase 61 U/L (34-104) 10/13/16 06:18 Total Creatine Kinase 67 U/L (10-223) 10/12/16 07:35 Troponin I 0.01 ng/mL (<0.04) 10/12/16 07:35 C-Reactive Protein 38.31 mg/L (< 5.00) H 10/12/16 07:35 B-Natriuretic Peptide 76 pg/mL (-100) 10/12/16 07:35 Total Protein 5.6 g/dL (6.4-8.9) L 10/13/16 06:18 Albumin 2.7 g/dL (3.2-5.2) L 10/13/16 06:18 Globulin 2.9 g/dL (2-4) 10/13/16 06:18 Albumin/Globulin Ratio 0.9 (1-3) L 10/13/16 06:18 Amylase 18 U/L (29-103) L 10/12/16 07:35 Lipase 12 U/L (11.0-82.0) 10/12/16 07:35 Beta HCG, Quant < 0.60 mIU/mL 10/12/16 07:35 Urine Color Yellow 10/12/16 08:41 Urine Appearance Cloudy 10/12/16 08:41 Urine pH 5.0 (5-9) 10/12/16 08:41 Ur Specific [place] 1.032 (1.010-1.030) H 10/12/16 08:41 Urine Protein 2+(100 mg/dl) (Negative) H 10/12/16 08:41 Urine Ketones Trace (Negative) H 10/12/16 08:41 Urine Blood 1+ (Negative) H 10/12/16 08:41 Urine Nitrate Negative (Negative) 10/12/16 08:41 Urine Bilirubin Negative (Negative) 10/12/16 08:41 Urine Urobilinogen Negative (Negative) 10/12/16 08:41 Ur Leukocyte Esterase 3+ (Negative) H 10/12/16 08:41 Urine WBC (Auto) 3+(>20/hpf) (Absent) H 10/12/16 08:41 Urine RBC (Auto) 1+(3-5/hpf) (Absent) H 10/12/16 08:41 Ur Squamous Epith Cells Present (Absent) H 10/12/16 08:41 Urine Bacteria Absent (Absent) 10/12/16 08:41 Urine Glucose 3+(>=500 mg/dl) (Negative) H 10/12/16 08:41 Assessment: POD#1 s/p emergent repair of incarcerated right inguinal hernia (with mesh) causing SBO, no clinical signs of small bowel ischemia. Much improved today. WBC remains normal and her BS's are under better control and renal function is normal Hypovolemia-receiving fluid Plan: Continue IVF as needed and follow urine output Continue rodgers IV antibiotics until urine culture is final-she does not need antibiotics from surgical standpoint.
--- NOTE | 2016-10-13 08:36 | PN ---
Subjective Date of Service: 10/13/16 Interval History: Patient seen and examined at bedside. Daughter present. She reports feeling "much better" since her surgery and recently had pain medication. She denies CP , SOB, n/v. She reports having peripheral neuropathy and "can't really feel much of what's going on in my feet." She has been seeing Dr. Luong for treatment of her foot wound and was in a boot but was unable to get it fully healed. She was referred to [facility] [place] and was actually due for her initial visit today. Her daughter reports that the patient often takes her shoes off in the evening and is noted to have quite a bit of blood coming out of her sock. They are concerned about the redness surrounding the wound, which they have noted has spread. In terms of her diabetes, she states she uses 2 pens ; one ("I don't know the name of") before meals and Lantus. Family History: Unchanged from Admission Social History: Unchanged from Admission Past Medical History: Unchanged from Admission Objective Active Medications: Acetaminophen (Tylenol Tab*) 650 mg PO Q6H PRN PRN Reason: pain, fever Dextrose (D50w Syringe 50 Ml*) 12.5 gm IV PUSH .FOR FS < 60 - SS PRN PRN Reason: FS < 60 Heparin Sodium (Porcine) (Heparin Vial(*)) 5,000 units SUBCUT Q8HR [facility] Last Admin: 10/13/16 05:05 Dose: 5,000 units Ceftriaxone Sodium 1,000 mg/ (Sodium Chloride) 50 mls @ 200 mls/hr IVPB 1200 [facility] Sodium Chloride (Ns 0.9% 1000 Ml*) 1,000 mls @ 100 mls/hr IV PER RATE [facility] Last Admin: 10/13/16 04:50 Dose: 100 mls/hr Insulin Human Lispro (Humalog*) 0 units SUBCUT Q4H [facility] PRN Reason: Protocol Last Admin: 10/13/16 05:04 Dose: 6 unit Morphine Sulfate (Morphine Inj (Syringe)*) 2 mg IV Q4H PRN PRN Reason: PAIN - MILD Last Admin: 10/13/16 07:53 Dose: 2 mg Morphine Sulfate (Morphine Inj (Syringe)*) 2 mg IV Q1H PRN PRN Reason: PAIN - SEVERE Multi-Ingredient Ointment (Hydrocerin*) 1 applic TOPICAL TID [facility] Ondansetron HCl (Zofran Inj*) 4 mg IV Q4H PRN PRN Reason: NAUSEA Last Admin: 10/12/16 14:08 Dose: 4 mg Prochlorperazine Edisylate (Compazine Inj*) 5 mg IV Q6H PRN PRN Reason: NAUSEA/VOMITING Last Admin: 10/12/16 22:04 Dose: 5 mg Vital Signs 10/12/16 10/12/16 10/12/16 13:05 13:08 14:08 Temperature 98.1 F 98.1 F Pulse Rate 66 66 Respiratory 18 18 16 Rate Blood Pressure 127/71 127/71 (mmHg) O2 Sat by Pulse 92 92 Oximetry 10/12/16 10/12/16 10/12/16 14:22 14:25 15:08 Temperature Pulse Rate Respiratory 16 16 16 Rate Blood Pressure (mmHg) O2 Sat by Pulse Oximetry 10/12/16 10/12/16 10/12/16 15:22 21:37 21:40 Temperature 97.6 F 98.4 F Pulse Rate 60 97 95 Respiratory 12 16 18 Rate Blood Pressure 134/69 131/67 132/65 (mmHg) O2 Sat by Pulse 92 93 92 Oximetry 10/12/16 10/12/16 10/12/16 21:45 21:50 21:52 Temperature Pulse Rate 95 94 Respiratory 18 18 19 Rate Blood Pressure 132/68 136/68 (mmHg) O2 Sat by Pulse 90 92 95 Oximetry 10/12/16 10/12/16 10/12/16 21:55 22:00 22:13 Temperature 98.8 F Pulse Rate 93 90 85 Respiratory 17 17 20 Rate Blood Pressure 149/79 157/80 126/58 (mmHg) O2 Sat by Pulse 94 94 94 Oximetry 10/12/16 10/12/16 10/13/16 22:30 22:57 00:04 Temperature 98.8 F 97.7 F Pulse Rate 77 76 73 Respiratory 18 14 16 Rate Blood Pressure 124/66 107/56 104/51 (mmHg) O2 Sat by Pulse 94 94 98 Oximetry 10/13/16 10/13/16 10/13/16 00:42 01:01 03:16 Temperature 98.3 F 98.7 F Pulse Rate 72 70 Respiratory 14 16 16 Rate Blood Pressure 108/53 105/55 (mmHg) O2 Sat by Pulse 97 96 Oximetry 10/13/16 10/13/16 10/13/16 05:04 07:44 07:53 Temperature 97.5 F 98.2 F Pulse Rate 70 72 Respiratory 16 16 16 Rate Blood Pressure 106/56 131/57 (mmHg) O2 Sat by Pulse 99 100 Oximetry 10/13/16 08:00 Temperature Pulse Rate Respiratory 16 Rate Blood Pressure (mmHg) O2 Sat by Pulse Oximetry Oxygen Devices in Use Now: Nasal Cannula - 3L Eyes: PERRLA Ears/Nose/Mouth/Throat: Clear Oropharnyx, Mucous Membranes Moist Neck: NL Appearance and Movements; NL JVP Respiratory: Symmetrical Chest Expansion and Respiratory Effort, Clear to Auscultation Cardiovascular: NL Sounds; No Murmurs; No JVD, RRR Abdominal: - - abdomen soft, mild tender with deeper palption, BS present, dressing to RLQ c/d/i Extremities: No Edema Skin: - - right heel ulcer with surrounding erythema, no notable drainage Neurological: Alert and Oriented x 3 Lines/Tubes/Other Access: Clean, Dry and Intact Trivedi, Clean, Dry and Intact Peripheral IV Nutrition: Taking PO's Result Diagrams: 10/13/16 06:18 10/13/16 06:18 Additional Lab and Data: Lab Results 10/12/16 10/12/16 10/12/16 Range/Units 07:35 07:35 07:35 WBC 12.5 H (3.5-10.8) 10^3/ul RBC 4.84 (4.0-5.4) 10^6/ul Hgb 12.1 (12.0-16.0) g/dl Hct 38 (35-47) % MCV 79 L (80-97) fL MCH 25 L (27-31) pg MCHC 32 (31-36) g/dl RDW 16 H (10.5-15) % Plt Count 299 (150-450) 10^3/ul MPV Not Reportable Neut % (Auto) 89.1 H (38-83) % Lymph % (Auto) 6.4 L (25-47) % [place] % (Auto) 3.8 (1-9) % Eos % (Auto) 0.3 (0-6) % Baso % (Auto) 0.4 (0-2) % Absolute Neuts (auto) 11.2 H (1.5-7.7) 10^3/ul Absolute Lymphs (auto) 0.8 L (1.0-4.8) 10^3/ul Absolute Monos (auto) 0.5 (0-0.8) 10^3/ul Absolute Eos (auto) 0 (0-0.6) 10^3/ul Absolute Basos (auto) 0.1 (0-0.2) 10^3/ul Absolute Nucleated RBC 0.02 10^3/ul Nucleated RBC % 0.2 VBG pH (7.33-7.43) VBG pCO2 (41-51) mmHg VBG pO2 (35-45) mmHg VBG HCO3 (24-28) mmol/L VBG O2 Saturation (70-80) % VBG Base Excess (0-4) Sodium 130 L (133-145) mmol/L Potassium 4.4 (3.5-5.0) mmol/L Chloride 94 L (101-111) mmol/L Carbon Dioxide 27 (22-32) mmol/L Anion Gap 9 (2-11) mmol/L BUN 13 (6-24) mg/dL Creatinine 0.81 (0.51-0.95) mg/dL Est GFR ( Amer) 96.7 (>60) Est GFR (Non-Af Amer) 75.2 (>60) BUN/Creatinine Ratio 16.0 (8-20) Glucose 671 H* (70-100) mg/dL Lactic Acid 0.9 (0.5-2.0) mmol/L Calcium 9.4 (8.6-10.3) mg/dL Total Bilirubin 2.00 H (0.2-1.0) mg/dL AST 14 (13-39) U/L ALT 12 (7-52) U/L Alkaline Phosphatase 108 H (34-104) U/L Total Creatine Kinase 67 (10-223) U/L Troponin I 0.01 (<0.04) ng/mL C-Reactive Protein 38.31 H (< 5.00) mg/L B-Natriuretic Peptide ( - 100) pg/mL Total Protein 7.4 (6.4-8.9) g/dL Albumin 3.5 (3.2-5.2) g/dL Globulin 3.9 (2-4) g/dL Albumin/Globulin Ratio 0.9 L (1-3) Amylase 18 L (29-103) U/L Lipase 12 (11.0-82.0) U/L Beta HCG, Quant < 0.60 mIU/mL Urine Color Urine Appearance Urine pH (5-9) Ur Specific [place] (1.010-1.030) Urine Protein (Negative) Urine Ketones (Negative) Urine Blood (Negative) Urine Nitrate (Negative) Urine Bilirubin (Negative) Urine Urobilinogen (Negative) Ur Leukocyte Esterase (Negative) Urine WBC (Auto) (Absent) Urine RBC (Auto) (Absent) Ur Squamous Epith Cells (Absent) Urine Bacteria (Absent) Urine Glucose (Negative) 10/12/16 10/12/16 10/12/16 Range/Units 07:35 08:41 08:41 WBC (3.5-10.8) 10^3/ul RBC (4.0-5.4) 10^6/ul Hgb (12.0-16.0) g/dl Hct (35-47) % MCV (80-97) fL MCH (27-31) pg MCHC (31-36) g/dl RDW (10.5-15) % Plt Count (150-450) 10^3/ul MPV Neut % (Auto) (38-83) % Lymph % (Auto) (25-47) % [place] % (Auto) (1-9) % Eos % (Auto) (0-6) % Baso % (Auto) (0-2) % Absolute Neuts (auto) (1.5-7.7) 10^3/ul Absolute Lymphs (auto) (1.0-4.8) 10^3/ul Absolute Monos (auto) (0-0.8) 10^3/ul Absolute Eos (auto) (0-0.6) 10^3/ul Absolute Basos (auto) (0-0.2) 10^3/ul Absolute Nucleated RBC 10^3/ul Nucleated RBC % VBG pH 7.31 L (7.33-7.43) VBG pCO2 44 (41-51) mmHg VBG pO2 84 H (35-45) mmHg VBG HCO3 21.8 L (24-28) mmol/L VBG O2 Saturation 97.7 H (70-80) % VBG Base Excess -3.9 L (0-4) Sodium (133-145) mmol/L Potassium (3.5-5.0) mmol/L Chloride (101-111) mmol/L Carbon Dioxide (22-32) mmol/L Anion Gap (2-11) mmol/L BUN (6-24) mg/dL Creatinine (0.51-0.95) mg/dL Est GFR ( Amer) (>60) Est GFR (Non-Af Amer) (>60) BUN/Creatinine Ratio (8-20) Glucose (70-100) mg/dL Lactic Acid (0.5-2.0) mmol/L Calcium (8.6-10.3) mg/dL Total Bilirubin (0.2-1.0) mg/dL AST (13-39) U/L ALT (7-52) U/L Alkaline Phosphatase (34-104) U/L Total Creatine Kinase (10-223) U/L Troponin I (<0.04) ng/mL C-Reactive Protein (< 5.00) mg/L B-Natriuretic Peptide 76 ( - 100) pg/mL Total Protein (6.4-8.9) g/dL Albumin (3.2-5.2) g/dL Globulin (2-4) g/dL Albumin/Globulin Ratio (1-3) Amylase (29-103) U/L Lipase (11.0-82.0) U/L Beta HCG, Quant mIU/mL Urine Color Yellow Urine Appearance Cloudy Urine pH 5.0 (5-9) Ur Specific [place] 1.032 H (1.010-1.030) Urine Protein 2+(100 mg/dl) H (Negative) Urine Ketones Trace H (Negative) Urine Blood 1+ H (Negative) Urine Nitrate Negative (Negative) Urine Bilirubin Negative (Negative) Urine Urobilinogen Negative (Negative) Ur Leukocyte Esterase 3+ H (Negative) Urine WBC (Auto) 3+(>20/hpf) H (Absent) Urine RBC (Auto) 1+(3-5/hpf) H (Absent) Ur Squamous Epith Cells Present H (Absent) Urine Bacteria Absent (Absent) Urine Glucose 3+(>=500 mg/dl) H (Negative) 10/12/16 Range/Units 11:35 WBC (3.5-10.8) 10^3/ul RBC (4.0-5.4) 10^6/ul Hgb (12.0-16.0) g/dl Hct (35-47) % MCV (80-97) fL MCH (27-31) pg MCHC (31-36) g/dl RDW (10.5-15) % Plt Count (150-450) 10^3/ul MPV Neut % (Auto) (38-83) % Lymph % (Auto) (25-47) % [place] % (Auto) (1-9) % Eos % (Auto) (0-6) % Baso % (Auto) (0-2) % Absolute Neuts (auto) (1.5-7.7) 10^3/ul Absolute Lymphs (auto) (1.0-4.8) 10^3/ul Absolute Monos (auto) (0-0.8) 10^3/ul Absolute Eos (auto) (0-0.6) 10^3/ul Absolute Basos (auto) (0-0.2) 10^3/ul Absolute Nucleated RBC 10^3/ul Nucleated RBC % VBG pH (7.33-7.43) VBG pCO2 (41-51) mmHg VBG pO2 (35-45) mmHg VBG HCO3 (24-28) mmol/L VBG O2 Saturation (70-80) % VBG Base Excess (0-4) Sodium (133-145) mmol/L Potassium (3.5-5.0) mmol/L Chloride (101-111) mmol/L Carbon Dioxide (22-32) mmol/L Anion Gap (2-11) mmol/L BUN (6-24) mg/dL Creatinine (0.51-0.95) mg/dL Est GFR ( Amer) (>60) Est GFR (Non-Af Amer) (>60) BUN/Creatinine Ratio (8-20) Glucose 407 H (70-100) mg/dL Lactic Acid (0.5-2.0) mmol/L Calcium (8.6-10.3) mg/dL Total Bilirubin (0.2-1.0) mg/dL AST (13-39) U/L ALT (7-52) U/L Alkaline Phosphatase (34-104) U/L Total Creatine Kinase (10-223) U/L Troponin I (<0.04) ng/mL C-Reactive Protein (< 5.00) mg/L B-Natriuretic Peptide ( - 100) pg/mL Total Protein (6.4-8.9) g/dL Albumin (3.2-5.2) g/dL Globulin (2-4) g/dL Albumin/Globulin Ratio (1-3) Amylase (29-103) U/L Lipase (11.0-82.0) U/L Beta HCG, Quant mIU/mL Urine Color Urine Appearance Urine pH (5-9) Ur Specific [place] (1.010-1.030) Urine Protein (Negative) Urine Ketones (Negative) Urine Blood (Negative) Urine Nitrate (Negative) Urine Bilirubin (Negative) Urine Urobilinogen (Negative) Ur Leukocyte Esterase (Negative) Urine WBC (Auto) (Absent) Urine RBC (Auto) (Absent) Ur Squamous Epith Cells (Absent) Urine Bacteria (Absent) Urine Glucose (Negative) Assess/Plan/Problems-Billing Assessment: Ms. Kath de la rosa is a 51 yo female with a PMH of IDDM, peripheral neuropathy, and past substance abuse history who presented to the ED on 10/12/16 with abdominal pain and n/v and was found to have partial SBO with incarcerated hernia; patient was also in DKA and was also noted to have a UTI and chronic right heel ulcer. - Patient Problems (1) Incarcerated hernia Code(s): K46.0 - UNSP ABDOMINAL HERNIA WITH OBSTRUCTION, WITHOUT GANGRENE Comment: Management per surgery S/p open repair with mesh of a right direct incarcerated inguinal hernia Reports small BM overnight, no flatus Keep NPO per surgery Continue IVF, pain management (2) Diabetes mellitus, insulin dependent (IDDM), uncontrolled Current Visit: Yes Code(s): E10.65 - TYPE 1 DIABETES MELLITUS WITH HYPERGLYCEMIA Comment: With mild DKA upon arrival, did not require insulin gtt HgbA1c 15.1 Continue FSBG q4 with Lispro SSI until taking PO Patient on mealtime insulin at home (does not know which insulin type) and Lantus asthma educator consult ordered (3) UTI (urinary tract infection) Comment: UA concerning for acute infection, pt presented in mild DKA Started on Ceftriaxone Await urine culture (4) Chronic heel ulcer Code(s): L97.409 - NON-PRS CHRONIC ULCER OF UNSP HEEL AND MIDFOOT W UNSP SEVERT Comment: Wound care consult Obtain XR to evaluate for osteomyelitis Concern for peripheral vascular disease, check JESSENIA (5) Peripheral neuropathy Code(s): G62.9 - POLYNEUROPATHY, UNSPECIFIED Comment: Continue duloxetine and gabapentin (6) DVT prophylaxis Code(s): RQF9891 - Comment: SQ heparin Status and Disposition: Inpatient admission. Anticipate LOS >2 days.
[2016-10-13] MEDS: Moisturizing CREAM* 120 GM JAR TOPICAL SCH ×3 (10:39→21:04)
--- NOTE | 2016-10-13 11:05 | OP ---
DATE OF OPERATION: 10/12/16 - ROOM #331 DATE OF : 69 SURGEON: Serjio Valdes MD PROFESSOR OF SPECIAL EDUCATION: DAREN Del Valle ANESTHESIOLOGIST: Dr. Estrella. ANESTHESIA: General with local. PRE-OP DIAGNOSIS: Incarcerated right groin hernia with small bowel obstruction. POST-OP DIAGNOSIS: Incarcerated right indirect inguinal hernia with small bowel obstruction. OPERATIVE PROCEDURE: Open repair with mesh of a right indirect incarcerated inguinal hernia. ESTIMATED BLOOD LOSS: Minimal. IV FLUIDS: 1400 cc of crystalloids. SPECIMENS: None. COMPLICATIONS: None. DRAINS: None. WOUND CLASSIFICATION: I. FINDINGS: The patient had a large indirect inguinal hernia sac which was reduced after dissection. The sac was not opened as the bowel was reduced. Bowel reduced spontaneously after we opened the external oblique aponeurosis, but clinically the patient did not appear to have ischemia or strangulation. DESCRIPTION OF PROCEDURE: Written and informed consent was obtained. The right groin was marked with indelible ink and preoperative antibiotics were administered. The patient was taken to the operating room. A sequential compression device and a warming blanket were applied. General anesthesia was administered and the Trivedi catheter was inserted. The entire abdomen and both right and left groins were prepped and draped in the usual sterile fashion. An oblique incision was made several fingerbreadths above the inguinal crease in the usual location, carried down through subcutaneous tissue. Here, we entered a rather large mass in the subcutaneous space. We were able to dissect this from surrounding tissue. There showed a lot of chronic inflammation in the subcutaneous tissue. No evidence of purulence or abscess. However, we were able to take what appeared to be a rather large hernia sac and surrounding tissue down to the external oblique aponeurosis. Pubic tubercle and inguinal ligament and landmarks were also identified. The external oblique aponeurosis was then opened in the direction of its fibers and we were able to identify the direct space. At this point, the contents of the hernia which appeared to be small bowel spontaneously reduced from a rather large hernia sac. There was some fluid in the sac, we did not open this up but clinically, the patient did not appear to have ischemia due to strangulation and at this point, I did not feel it was essential to open up the sac to identify the bowel, but clinically did have a small bowel obstruction by both CT scan and clinical diagnosis. Next, we were able to dissect the sac up into the rather patulous internal ring. The conjoint tendon was identified. This was very weak and I did attempt a relaxing incision more superiorly just to consider a primary repair in an attempt to avoid mesh in a diabetic and a rather urgent operation. Although this was felt to be clean, but the musculature was so weak and I did not extend across the patulous internal ring and I felt that this would create too much tension on a primary tissue repair of the hernia. Next, the decision was then made to use an onlay piece of polypropylene mesh which was cut in an oval. This was secured to the pubic tubercle immediately and the inguinal ligament inferiorly with a running 0 Polysorb suture. We secured just the conjoint tendon superiorly, the musculature laterally with circumferential stitches to cover the entire direct and indirect space without difficulty under no tension. It seemed to cover nicely. Hemostasis was assured. Marcaine was infiltrated in the subcutaneous space. The external oblique aponeurosis was closed in a running 0 Polysorb suture. The subcutaneous fat and tissue were closed in layers of 2-0 and 3-0 Polysorb suture. The skin was approximated with a stapling device. Dry sterile dressings were applied. The patient tolerated the procedure well, was taken to the recovery room in stable condition. CC: [facility]; Dr. Jerel Chatterjee * [id number]/[facility] #: [id number] MTDD
[2016-10-13] MEDS: cefTRIAXone VIAL(*) 1,000 MG in NS 0.9% 50 ML* 50 ML IVPB SCH (12:24)
--- NOTE | 2016-10-13 14:32 | RAD ---
HISTORY: Diabetes, right foot wound, concern for osteomyelitis COMPARISONS: None VIEWS: 3, Frontal, lateral, and oblique views of the right ankle FINDINGS: BONE DENSITY: Normal. BONES: There is no displaced fracture. There is no appreciable erosion or periosteal reaction. JOINTS: There is no arthropathy. ALIGNMENT: There is no dislocation. SOFT TISSUES: Unremarkable. OTHER FINDINGS: None. IMPRESSION: NO ACUTE OSSEOUS INJURY. NO APPRECIABLE EROSION OR PERIOSTEAL REACTION PLAIN FILM FINDINGS OF OSTEOMYELITIS ARE RELATIVELY LATE FINDINGS. IF THERE IS PERSISTENT CLINICAL CONCERN FOR OSTEOMYELITIS, RECOMMEND CORRELATION WITH FOLLOWUP IMAGING, THREE-PHASE BONE SCANNING, WHITE BLOOD CELL SCAN, AND/OR MRI OF THE AFFECTED REGION.
--- NOTE | 2016-10-13 14:33 | RAD ---
HISTORY: Diabetes, right foot ulceration, concerning for osteomyelitis COMPARISONS: None VIEWS: 3, Frontal, lateral, and oblique views of the right foot FINDINGS: BONE DENSITY: Normal. BONES: There is no displaced fracture. There is no appreciable erosion or periosteal reaction. JOINTS: There is no arthropathy. ALIGNMENT: There is no dislocation. SOFT TISSUES: Unremarkable. OTHER FINDINGS: None. IMPRESSION: NO ACUTE OSSEOUS INJURY. THERE IS NO APPRECIABLE EROSION OR PERIOSTEAL REACTION. PLAIN FILM FINDINGS OF OSTEOMYELITIS ARE RELATIVELY LATE FINDINGS. IF THERE IS PERSISTENT CLINICAL CONCERN FOR OSTEOMYELITIS, RECOMMEND CORRELATION WITH FOLLOWUP IMAGING, THREE-PHASE BONE SCANNING, WHITE BLOOD CELL SCAN, AND/OR MRI OF THE AFFECTED REGION.
--- NOTE | 2016-10-13 14:56 | RAD ---
INDICATIONS: Nonhealing foot wound COMPARISONS: None TECHNIQUE: Ankle-brachial indices and Doppler tracings were obtained of the lower extremities bilaterally. FINDINGS: Right: The posterior tibial ankle brachial index is 1.46. The dorsalis pedis ankle brachial index is 1.27. The digital brachial index is 1.02 The posterior tibial waveform is triphasic. The dorsalis pedis waveform is triphasic. Left: The posterior tibial ankle brachial index is 1.51. The dorsalis pedis ankle brachial index is 1.39. The digital brachial index is 0.94 The posterior tibial waveform is triphasic. The dorsalis pedis waveform is triphasic. OTHER: None. IMPRESSION: BILATERAL ELEVATED ANKLE BRACHIAL INDICES AND DIGITAL BRACHIAL INDICES CONSISTENT WITH DECREASED COMPLIANCE IN THE SETTING OF ARTERIOSCLEROSIS. NORMAL DISTAL WAVEFORMS
[2016-10-13] MEDS: Gabapentin CAP(*) 300 MG PO SCH ×2 (15:47→21:04)
[2016-10-13] MEDS: DULoxetine DR CAP* 30 MG CAP.DR PO SCH (15:47)
[2016-10-13] MEDS: Ondansetron INJ* 2 MG/ML VIAL IV PRN (20:06)
[2016-10-14] MEDS: Insulin LISPRO* 1 UNITS UNIT SUBCUT SCH ×6 (02:02→21:56)
[2016-10-14] MEDS ORDERED: NS 0.9% 1000 ML* 1,000 ML IV ONE (03:45)
[2016-10-14] MEDS: Heparin VIAL(*) 5000 UNITS/ML VIAL (FIVE THOUSAND) SUBCUT SCH ×3 (05:26→21:56)
[2016-10-14] MEDS: Acetaminophen TAB* 325 MG PO PRN ×2 (05:30→12:30)
[2016-10-14 06:16] LABS: Hematocrit 28 % (35-47); Hemoglobin 8.8 g/dl (12.0-16.0); Mean Corpuscular HGB Conc 32 g/dl (31-36); Mean Corpuscular Hemoglobin 25 pg (27-31); Mean Corpuscular Volume 80 fL (80-97); Mean Platelet Volume 8 um3 (7.4-10.4); Red Blood Count 3.49 10^6/ul (4.0-5.4); Red Cell Distribution Width 16 % (10.5-15); White Blood Count 7.7 10^3/ul (3.5-10.8)
[2016-10-14 06:30] LABS: BUN/Creatinine Ratio 15.2 (8-20); EGFR African American 122.4 (>60); EGFR Non-African American 95.2 (>60); Potassium 3.3 mmol/L (3.5-5.0)
--- NOTE | 2016-10-14 09:29 | PN ---
Progress Note - Progress Note SOAP: Subjective: She continues to feel better-tolerated liquids and had multiple loose bowel movements overnight She would like to eat more She has no abdominal pain--complains of only minimal right groin incisional pain Objective: afebrile Temp Pulse Resp BP Pulse Ox 98.4 F 66 16 108/57 94 10/14/16 03:31 10/14/16 03:31 10/14/16 03:31 10/14/16 03:31 10/14/16 03:31 Intake & Output 10/12/16 10/13/16 10/14/16 10/15/16 06:59 06:59 06:59 06:59 Intake Total 4310 2061 1000 Output Total 150 425 Balance 4160 1636 1000 Weight 170 lb Intake: IV Fluids 4310 1000 0.9 700 NS (0.9%) 908 1000 d5lr 900 lr 800 IVPB 1771 NS (0.9%) 1721 abx 50 Oral 0 290 Output: Urine 0 Rodgers 150 425 Other: Date of Last Bowel 10/13/16 10/14/16 Movement # Bowel Movements 1 1 Estimated Stool Amount Small Medium PEX: Comfortable Abd is soft and non=distended. She has bowel sounds that are present throughout and are not high pitched or tinkling. There is no tenderness. The right groin incision is clean and dry without erythema or drainage. Dressing was changed. Laboratory Last Values WBC 7.7 10^3/ul (3.5-10.8) 10/14/16 05:59 RBC 3.49 10^6/ul (4.0-5.4) L 10/14/16 05:59 Hgb 8.8 g/dl (12.0-16.0) L 10/14/16 05:59 Hct 28 % (35-47) L 10/14/16 05:59 MCV 80 fL (80-97) 10/14/16 05:59 MCH 25 pg (27-31) L 10/14/16 05:59 MCHC 32 g/dl (31-36) 10/14/16 05:59 RDW 16 % (10.5-15) H 10/14/16 05:59 Plt Count 232 10^3/ul (150-450) 10/14/16 05:59 MPV 8 um3 (7.4-10.4) 10/14/16 05:59 Neut % (Auto) 71.5 % (38-83) 10/14/16 05:59 Lymph % (Auto) 18.7 % (25-47) L 10/14/16 05:59 [place] % (Auto) 9.2 % (1-9) H 10/14/16 05:59 Eos % (Auto) 0.3 % (0-6) 10/14/16 05:59 Baso % (Auto) 0.3 % (0-2) 10/14/16 05:59 Absolute Neuts (auto) 5.5 10^3/ul (1.5-7.7) 10/14/16 05:59 Absolute Lymphs (auto) 1.4 10^3/ul (1.0-4.8) 10/14/16 05:59 Absolute Monos (auto) 0.7 10^3/ul (0-0.8) 10/14/16 05:59 Absolute Eos (auto) 0 10^3/ul (0-0.6) 10/14/16 05:59 Absolute Basos (auto) 0 10^3/ul (0-0.2) 10/14/16 05:59 Absolute Nucleated RBC 0 10^3/ul 10/14/16 05:59 Nucleated RBC % 0 10/14/16 05:59 VBG pH 7.31 (7.33-7.43) L 10/12/16 08:41 VBG pCO2 44 mmHg (41-51) 10/12/16 08:41 VBG pO2 84 mmHg (35-45) H 10/12/16 08:41 VBG HCO3 21.8 mmol/L (24-28) L 10/12/16 08:41 VBG O2 Saturation 97.7 % (70-80) H 10/12/16 08:41 VBG Base Excess -3.9 (0-4) L 10/12/16 08:41 Sodium 139 mmol/L (133-145) 10/14/16 05:59 Potassium 3.3 mmol/L (3.5-5.0) L 10/14/16 05:59 Chloride 111 mmol/L (101-111) 10/14/16 05:59 Carbon Dioxide 24 mmol/L (22-32) 10/14/16 05:59 Anion Gap 4 mmol/L (2-11) 10/14/16 05:59 BUN 10 mg/dL (6-24) 10/14/16 05:59 Creatinine 0.66 mg/dL (0.51-0.95) 10/14/16 05:59 Est GFR ( Amer) 122.4 (>60) 10/14/16 05:59 Est GFR (Non-Af Amer) 95.2 (>60) 10/14/16 05:59 BUN/Creatinine Ratio 15.2 (8-20) 10/14/16 05:59 Glucose 61 mg/dL (70-100) L 10/14/16 05:59 POC Glucose (mg/dL) 75 mg/dL (74-106) 10/14/16 08:25 Hemoglobin A1c 15.1 % (Less than 6.0) H 10/12/16 15:04 Lactic Acid 1.0 mmol/L (0.5-2.0) 10/12/16 15:04 Calcium 7.0 mg/dL (8.6-10.3) L 10/14/16 05:59 Total Bilirubin 0.80 mg/dL (0.2-1.0) 10/13/16 06:18 AST 11 U/L (13-39) L 10/13/16 06:18 ALT 8 U/L (7-52) 10/13/16 06:18 Alkaline Phosphatase 61 U/L (34-104) 10/13/16 06:18 Total Creatine Kinase 67 U/L (10-223) 10/12/16 07:35 Troponin I 0.01 ng/mL (<0.04) 10/12/16 07:35 C-Reactive Protein 38.31 mg/L (< 5.00) H 10/12/16 07:35 B-Natriuretic Peptide 76 pg/mL (-100) 10/12/16 07:35 Total Protein 5.6 g/dL (6.4-8.9) L 10/13/16 06:18 Albumin 2.7 g/dL (3.2-5.2) L 10/13/16 06:18 Globulin 2.9 g/dL (2-4) 10/13/16 06:18 Albumin/Globulin Ratio 0.9 (1-3) L 10/13/16 06:18 Amylase 18 U/L (29-103) L 10/12/16 07:35 Lipase 12 U/L (11.0-82.0) 10/12/16 07:35 Beta HCG, Quant < 0.60 mIU/mL 10/12/16 07:35 Urine Color Yellow 10/12/16 08:41 Urine Appearance Cloudy 10/12/16 08:41 Urine pH 5.0 (5-9) 10/12/16 08:41 Ur Specific [place] 1.032 (1.010-1.030) H 10/12/16 08:41 Urine Protein 2+(100 mg/dl) (Negative) H 10/12/16 08:41 Urine Ketones Trace (Negative) H 10/12/16 08:41 Urine Blood 1+ (Negative) H 10/12/16 08:41 Urine Nitrate Negative (Negative) 10/12/16 08:41 Urine Bilirubin Negative (Negative) 10/12/16 08:41 Urine Urobilinogen Negative (Negative) 10/12/16 08:41 Ur Leukocyte Esterase 3+ (Negative) H 10/12/16 08:41 Urine WBC (Auto) 3+(>20/hpf) (Absent) H 10/12/16 08:41 Urine RBC (Auto) 1+(3-5/hpf) (Absent) H 10/12/16 08:41 Ur Squamous Epith Cells Present (Absent) H 10/12/16 08:41 Urine Bacteria Absent (Absent) 10/12/16 08:41 Urine Glucose 3+(>=500 mg/dl) (Negative) H 10/12/16 08:41 Assessment: POD# 2 s/p emergent repair of incarcerated right inguinal hernia that was causing a small bowel obstruction. No evidence of bowel ischemia. Ileus-resolving Low urine output in the face of normal vital signs and normal BUN/CR Plan: Advance diet to full liquids D/C rodgers-avoid giving more fluids at this time and will follow urine output--I think she is now adequately hydrated and will soon begin to mobilize fluid. Increase activity. All above discussed with Dr. Palmer this morning.
[2016-10-14] MEDS: DULoxetine DR CAP* 30 MG CAP.DR PO SCH (09:53)
[2016-10-14] MEDS: HYDROcodone/ACETAMIN 5-325 MG* 1 TAB PO PRN ×2 (09:53→21:57)
[2016-10-14] MEDS: Gabapentin CAP(*) 300 MG PO SCH ×3 (09:53→21:57)
[2016-10-14] MEDS: Moisturizing CREAM* 120 GM JAR TOPICAL SCH ×3 (10:39→21:56)
[2016-10-14] MEDS: cefTRIAXone VIAL(*) 1,000 MG in NS 0.9% 50 ML* 50 ML IVPB SCH (12:17)
--- NOTE | 2016-10-14 13:09 | RAD ---
Indication: Calcaneal osteomyelitis. Axial sagittal and coronal T1, STIR images of the ankle with attention to the calcaneus was performed. The calcaneus demonstrates some minimal increased signal in the lateral aspect of the calcaneus which may be reactive in nature. No evidence of associated soft tissue masses are noted. This is unlikely osteomyelitis. The distal fibula and talus are also unremarkable. The remainder of the talus is otherwise unremarkable. Edema is noted in the abductor digiti minimi muscle. IMPRESSION: There is some minimal increased signal in the lateral aspect of the calcaneus however no associated soft tissue edema is noted. This may represent reactive change. No definite osteomyelitis is noted. There is no evidence of drainable fluid collections although there is some muscular edema present.
[2016-10-14] MEDS: KCL 10 MEQ/50 ML IVPREMIX* 10 MEQ/50 ML BAG IV SCH ×2 (15:27→16:43)
--- NOTE | 2016-10-14 17:13 | PN ---
Subjective Date of Service: 10/14/16 Interval History: pt feels well. C/o lose stools. on full liquid diet today Family History: Unchanged from Admission Social History: Unchanged from Admission Past Medical History: Unchanged from Admission Objective Active Medications: Acetaminophen (Tylenol Tab*) 650 mg PO Q6H PRN PRN Reason: pain, fever Last Admin: 10/14/16 12:30 Dose: 650 mg Acetaminophen/Hydrocodone Bitart ([place] 5-325 Tab*) 1 tab PO Q4H PRN PRN Reason: PAIN Last Admin: 10/14/16 09:53 Dose: 1 tab Dextrose (D50w Syringe 50 Ml*) 12.5 gm IV PUSH .FOR FS < 60 - SS PRN PRN Reason: FS < 60 Duloxetine HCl (Cymbalta Cap*) 30 mg PO DAILY [facility] Last Admin: 10/14/16 09:53 Dose: 30 mg Gabapentin (Neurontin Cap(*)) 600 mg PO TID [facility] Last Admin: 10/14/16 14:14 Dose: 600 mg Heparin Sodium (Porcine) (Heparin Vial(*)) 5,000 units SUBCUT Q8HR [facility] Last Admin: 10/14/16 14:14 Dose: 5,000 units Potassium Chloride (Potassium Chloride 10 Meq/50 Ml Ivpremix*) 10 meq in 50 mls @ 50 mls/hr IV Q2H [facility] Stop: 10/14/16 17:59 Last Admin: 10/14/16 16:43 Dose: 50 mls/hr Insulin Human Lispro (Humalog*) 0 units SUBCUT Q4H [facility] PRN Reason: Protocol Last Admin: 10/14/16 16:35 Dose: Not Given Morphine Sulfate (Morphine Inj (Syringe)*) 2 mg IV Q4H PRN PRN Reason: PAIN - MILD Last Admin: 10/13/16 17:22 Dose: 2 mg Morphine Sulfate (Morphine Inj (Syringe)*) 2 mg IV Q1H PRN PRN Reason: PAIN - SEVERE Multi-Ingredient Ointment (Hydrocerin*) 1 applic TOPICAL TID [facility] Last Admin: 10/14/16 14:36 Dose: 1 applic Ondansetron HCl (Zofran Inj*) 4 mg IV Q4H PRN PRN Reason: NAUSEA Last Admin: 10/13/16 20:06 Dose: 4 mg Prochlorperazine Edisylate (Compazine Inj*) 5 mg IV Q6H PRN PRN Reason: NAUSEA/VOMITING Last Admin: 10/12/16 22:04 Dose: 5 mg Vital Signs 10/13/16 10/13/16 10/13/16 17:22 17:40 18:22 Temperature Pulse Rate Respiratory 18 18 18 Rate Blood Pressure (mmHg) O2 Sat by Pulse Oximetry 10/13/16 10/13/16 10/13/16 19:17 20:55 21:04 Temperature 99.5 F Pulse Rate 71 Respiratory 16 16 16 Rate Blood Pressure 125/60 (mmHg) O2 Sat by Pulse 93 Oximetry 10/13/16 10/13/16 10/14/16 23:04 23:19 03:31 Temperature 98.4 F 98.4 F Pulse Rate 66 66 Respiratory 16 16 16 Rate Blood Pressure 108/53 108/57 (mmHg) O2 Sat by Pulse 95 94 Oximetry 10/14/16 10/14/16 10/14/16 07:10 07:45 09:53 Temperature 98.0 F Pulse Rate 66 Respiratory 16 20 18 Rate Blood Pressure 118/66 (mmHg) O2 Sat by Pulse 97 Oximetry 10/14/16 10/14/16 10/14/16 11:53 13:18 13:20 Temperature Pulse Rate 67 148 Respiratory 20 Rate Blood Pressure (mmHg) O2 Sat by Pulse 88 86 Oximetry 10/14/16 10/14/16 10/14/16 13:22 14:14 16:00 Temperature 97.4 F Pulse Rate 73 69 Respiratory 18 16 Rate Blood Pressure 122/67 (mmHg) O2 Sat by Pulse 82 99 Oximetry Oxygen Devices in Use Now: Nasal Cannula - 2L, 02 sat 98% Appearance: 51 yo F in nAD, aAOx3 Eyes: No Scleral Icterus, PERRLA Ears/Nose/Mouth/Throat: NL Teeth, Lips, Gums, Mucous Membranes Moist Neck: NL Appearance and Movements; NL JVP, Trachea Midline Respiratory: Symmetrical Chest Expansion and Respiratory Effort, Clear to Auscultation Cardiovascular: NL Sounds; No Murmurs; No JVD, RRR Abdominal: No Hepatosplenomegaly, - - mildy tender in R inguinal area s/p surgery, soft, BS + Extremities: No Edema, No Clubbing, Cyanosis Skin: No Nodules or Sclerosis, - - R inguinal area post op dressings not removed Neurological: Alert and Oriented x 3, NL Muscle Strength and Tone Result Diagrams: 10/14/16 05:59 10/14/16 05:59 Additional Lab and Data: Lab Results 10/12/16 10/12/16 10/12/16 Range/Units 07:35 07:35 07:35 WBC 12.5 H (3.5-10.8) 10^3/ul RBC 4.84 (4.0-5.4) 10^6/ul Hgb 12.1 (12.0-16.0) g/dl Hct 38 (35-47) % MCV 79 L (80-97) fL MCH 25 L (27-31) pg MCHC 32 (31-36) g/dl RDW 16 H (10.5-15) % Plt Count 299 (150-450) 10^3/ul MPV Not Reportable Neut % (Auto) 89.1 H (38-83) % Lymph % (Auto) 6.4 L (25-47) % [place] % (Auto) 3.8 (1-9) % Eos % (Auto) 0.3 (0-6) % Baso % (Auto) 0.4 (0-2) % Absolute Neuts (auto) 11.2 H (1.5-7.7) 10^3/ul Absolute Lymphs (auto) 0.8 L (1.0-4.8) 10^3/ul Absolute Monos (auto) 0.5 (0-0.8) 10^3/ul Absolute Eos (auto) 0 (0-0.6) 10^3/ul Absolute Basos (auto) 0.1 (0-0.2) 10^3/ul Absolute Nucleated RBC 0.02 10^3/ul Nucleated RBC % 0.2 VBG pH (7.33-7.43) VBG pCO2 (41-51) mmHg VBG pO2 (35-45) mmHg VBG HCO3 (24-28) mmol/L VBG O2 Saturation (70-80) % VBG Base Excess (0-4) Sodium 130 L (133-145) mmol/L Potassium 4.4 (3.5-5.0) mmol/L Chloride 94 L (101-111) mmol/L Carbon Dioxide 27 (22-32) mmol/L Anion Gap 9 (2-11) mmol/L BUN 13 (6-24) mg/dL Creatinine 0.81 (0.51-0.95) mg/dL Est GFR ( Amer) 96.7 (>60) Est GFR (Non-Af Amer) 75.2 (>60) BUN/Creatinine Ratio 16.0 (8-20) Glucose 671 H* (70-100) mg/dL Lactic Acid 0.9 (0.5-2.0) mmol/L Calcium 9.4 (8.6-10.3) mg/dL Total Bilirubin 2.00 H (0.2-1.0) mg/dL AST 14 (13-39) U/L ALT 12 (7-52) U/L Alkaline Phosphatase 108 H (34-104) U/L Total Creatine Kinase 67 (10-223) U/L Troponin I 0.01 (<0.04) ng/mL C-Reactive Protein 38.31 H (< 5.00) mg/L B-Natriuretic Peptide ( - 100) pg/mL Total Protein 7.4 (6.4-8.9) g/dL Albumin 3.5 (3.2-5.2) g/dL Globulin 3.9 (2-4) g/dL Albumin/Globulin Ratio 0.9 L (1-3) Amylase 18 L (29-103) U/L Lipase 12 (11.0-82.0) U/L Beta HCG, Quant < 0.60 mIU/mL Urine Color Urine Appearance Urine pH (5-9) Ur Specific [place] (1.010-1.030) Urine Protein (Negative) Urine Ketones (Negative) Urine Blood (Negative) Urine Nitrate (Negative) Urine Bilirubin (Negative) Urine Urobilinogen (Negative) Ur Leukocyte Esterase (Negative) Urine WBC (Auto) (Absent) Urine RBC (Auto) (Absent) Ur Squamous Epith Cells (Absent) Urine Bacteria (Absent) Urine Glucose (Negative) 10/12/16 10/12/16 10/12/16 Range/Units 07:35 08:41 08:41 WBC (3.5-10.8) 10^3/ul RBC (4.0-5.4) 10^6/ul Hgb (12.0-16.0) g/dl Hct (35-47) % MCV (80-97) fL MCH (27-31) pg MCHC (31-36) g/dl RDW (10.5-15) % Plt Count (150-450) 10^3/ul MPV Neut % (Auto) (38-83) % Lymph % (Auto) (25-47) % [place] % (Auto) (1-9) % Eos % (Auto) (0-6) % Baso % (Auto) (0-2) % Absolute Neuts (auto) (1.5-7.7) 10^3/ul Absolute Lymphs (auto) (1.0-4.8) 10^3/ul Absolute Monos (auto) (0-0.8) 10^3/ul Absolute Eos (auto) (0-0.6) 10^3/ul Absolute Basos (auto) (0-0.2) 10^3/ul Absolute Nucleated RBC 10^3/ul Nucleated RBC % VBG pH 7.31 L (7.33-7.43) VBG pCO2 44 (41-51) mmHg VBG pO2 84 H (35-45) mmHg VBG HCO3 21.8 L (24-28) mmol/L VBG O2 Saturation 97.7 H (70-80) % VBG Base Excess -3.9 L (0-4) Sodium (133-145) mmol/L Potassium (3.5-5.0) mmol/L Chloride (101-111) mmol/L Carbon Dioxide (22-32) mmol/L Anion Gap (2-11) mmol/L BUN (6-24) mg/dL Creatinine (0.51-0.95) mg/dL Est GFR ( Amer) (>60) Est GFR (Non-Af Amer) (>60) BUN/Creatinine Ratio (8-20) Glucose (70-100) mg/dL Lactic Acid (0.5-2.0) mmol/L Calcium (8.6-10.3) mg/dL Total Bilirubin (0.2-1.0) mg/dL AST (13-39) U/L ALT (7-52) U/L Alkaline Phosphatase (34-104) U/L Total Creatine Kinase (10-223) U/L Troponin I (<0.04) ng/mL C-Reactive Protein (< 5.00) mg/L B-Natriuretic Peptide 76 ( - 100) pg/mL Total Protein (6.4-8.9) g/dL Albumin (3.2-5.2) g/dL Globulin (2-4) g/dL Albumin/Globulin Ratio (1-3) Amylase (29-103) U/L Lipase (11.0-82.0) U/L Beta HCG, Quant mIU/mL Urine Color Yellow Urine Appearance Cloudy Urine pH 5.0 (5-9) Ur Specific [place] 1.032 H (1.010-1.030) Urine Protein 2+(100 mg/dl) H (Negative) Urine Ketones Trace H (Negative) Urine Blood 1+ H (Negative) Urine Nitrate Negative (Negative) Urine Bilirubin Negative (Negative) Urine Urobilinogen Negative (Negative) Ur Leukocyte Esterase 3+ H (Negative) Urine WBC (Auto) 3+(>20/hpf) H (Absent) Urine RBC (Auto) 1+(3-5/hpf) H (Absent) Ur Squamous Epith Cells Present H (Absent) Urine Bacteria Absent (Absent) Urine Glucose 3+(>=500 mg/dl) H (Negative) 10/12/16 Range/Units 11:35 WBC (3.5-10.8) 10^3/ul RBC (4.0-5.4) 10^6/ul Hgb (12.0-16.0) g/dl Hct (35-47) % MCV (80-97) fL MCH (27-31) pg MCHC (31-36) g/dl RDW (10.5-15) % Plt Count (150-450) 10^3/ul MPV Neut % (Auto) (38-83) % Lymph % (Auto) (25-47) % [place] % (Auto) (1-9) % Eos % (Auto) (0-6) % Baso % (Auto) (0-2) % Absolute Neuts (auto) (1.5-7.7) 10^3/ul Absolute Lymphs (auto) (1.0-4.8) 10^3/ul Absolute Monos (auto) (0-0.8) 10^3/ul Absolute Eos (auto) (0-0.6) 10^3/ul Absolute Basos (auto) (0-0.2) 10^3/ul Absolute Nucleated RBC 10^3/ul Nucleated RBC % VBG pH (7.33-7.43) VBG pCO2 (41-51) mmHg VBG pO2 (35-45) mmHg VBG HCO3 (24-28) mmol/L VBG O2 Saturation (70-80) % VBG Base Excess (0-4) Sodium (133-145) mmol/L Potassium (3.5-5.0) mmol/L Chloride (101-111) mmol/L Carbon Dioxide (22-32) mmol/L Anion Gap (2-11) mmol/L BUN (6-24) mg/dL Creatinine (0.51-0.95) mg/dL Est GFR ( Amer) (>60) Est GFR (Non-Af Amer) (>60) BUN/Creatinine Ratio (8-20) Glucose 407 H (70-100) mg/dL Lactic Acid (0.5-2.0) mmol/L Calcium (8.6-10.3) mg/dL Total Bilirubin (0.2-1.0) mg/dL AST (13-39) U/L ALT (7-52) U/L Alkaline Phosphatase (34-104) U/L Total Creatine Kinase (10-223) U/L Troponin I (<0.04) ng/mL C-Reactive Protein (< 5.00) mg/L B-Natriuretic Peptide ( - 100) pg/mL Total Protein (6.4-8.9) g/dL Albumin (3.2-5.2) g/dL Globulin (2-4) g/dL Albumin/Globulin Ratio (1-3) Amylase (29-103) U/L Lipase (11.0-82.0) U/L Beta HCG, Quant mIU/mL Urine Color Urine Appearance Urine pH (5-9) Ur Specific [place] (1.010-1.030) Urine Protein (Negative) Urine Ketones (Negative) Urine Blood (Negative) Urine Nitrate (Negative) Urine Bilirubin (Negative) Urine Urobilinogen (Negative) Ur Leukocyte Esterase (Negative) Urine WBC (Auto) (Absent) Urine RBC (Auto) (Absent) Ur Squamous Epith Cells (Absent) Urine Bacteria (Absent) Urine Glucose (Negative) Assess/Plan/Problems-Billing Assessment: Ms. Kath de la rosa is a 51 yo female with a PMH of IDDM, peripheral neuropathy, and past substance abuse history who presented to the ED on 10/12/16 with abdominal pain and n/v and was found to have partial SBO with incarcerated hernia; patient was also in DKA and was also noted to have a UTI and chronic right heel ulcer. - Patient Problems (1) Incarcerated hernia Comment: Management per surgery S/p open repair with mesh of a right direct incarcerated inguinal hernia on full liquid diet stop IVF (2) Hypoxia Comment: pt has h/o smoking 2 PPD stopped 2 weeks ago. chronic SOB suspect due to a combination of COPD and post op atelectasis. she may need 02 at d/c (3) UTI (urinary tract infection) Comment: U cx negative. Stop ceftriaxone Blood cx + for staph epi-suspect contamination (4) Diabetes mellitus, insulin dependent (IDDM), uncontrolled Comment: With mild DKA at admission , did not require insulin gtt Hgb A1c 15.1 Continue FSBG q4 with Lispro SSI until taking more PO (5) Chronic heel ulcer Comment: Wound care consult appreciated. MRI shows no osteo JESSENIA's elevated due to arteriosclerosis (6) DVT prophylaxis Comment: SQ heparin Status and Disposition: Inpatient admission. Anticipate LOS >2 days.
[2016-10-15] MEDS: HYDROcodone/ACETAMIN 5-325 MG* 1 TAB PO PRN ×2 (05:55→12:49)
[2016-10-15] MEDS: Heparin VIAL(*) 5000 UNITS/ML VIAL (FIVE THOUSAND) SUBCUT SCH ×2 (05:55→14:02)
[2016-10-15 06:27] LABS: Hematocrit 29 % (35-47); Hemoglobin 9.2 g/dl (12.0-16.0); Mean Corpuscular HGB Conc 32 g/dl (31-36); Mean Corpuscular Hemoglobin 25 pg (27-31); Mean Corpuscular Volume 79 fL (80-97); Mean Platelet Volume 8 um3 (7.4-10.4); Red Blood Count 3.62 10^6/ul (4.0-5.4); Red Cell Distribution Width 16 % (10.5-15); White Blood Count 6.6 10^3/ul (3.5-10.8)
[2016-10-15 06:40] LABS: BUN/Creatinine Ratio 11.3 (8-20); Calcium 7.6 mg/dL (8.6-10.3); EGFR African American 131.6 (>60); EGFR Non-African American 102.3 (>60); Potassium 3.9 mmol/L (3.5-5.0)
--- NOTE | 2016-10-15 07:29 | PN ---
Progress Note - Progress Note SOAP: Subjective: Continues to improve, no N/V Tolerating liquids and passing flatus incisional pain only Urinating without difficulty Objective: Temp Pulse Resp BP Pulse Ox 99.4 F 66 18 123/63 98 10/15/16 03:26 10/15/16 03:26 10/15/16 05:55 10/15/16 03:26 10/15/16 03:26 Intake & Output 10/13/16 10/14/16 10/15/16 10/16/16 06:59 06:59 06:59 06:59 Intake Total 4310 2061 3460 Output Total 150 425 500 Balance 4160 1636 2960 Weight 170 lb Intake: IV Fluids 4310 1260 0.9 700 NS (0.9%) 908 1100 POTASSIUM 100 abx 60 d5lr 900 lr 800 IVPB 1771 NS (0.9%) 1721 abx 50 Oral 0 290 2200 Output: Urine 0 350 Trivedi 150 425 150 Other: Date of Last Bowel 10/13/16 10/14/16 Movement # Bowel Movements 1 1 1 Estimated Stool Amount Small Medium Small PEX: Comfortable Abd is soft and non=distended. Bowel sounds are present throughout. No tenderness Right groin incision is clean and dry without redness. [place] are intact. Minimal amount of swelling. Laboratory Last Values WBC 6.6 10^3/ul (3.5-10.8) 10/15/16 06:03 RBC 3.62 10^6/ul (4.0-5.4) L 10/15/16 06:03 Hgb 9.2 g/dl (12.0-16.0) L 10/15/16 06:03 Hct 29 % (35-47) L 10/15/16 06:03 MCV 79 fL (80-97) L 10/15/16 06:03 MCH 25 pg (27-31) L 10/15/16 06:03 MCHC 32 g/dl (31-36) 10/15/16 06:03 RDW 16 % (10.5-15) H 10/15/16 06:03 Plt Count 227 10^3/ul (150-450) 10/15/16 06:03 MPV 8 um3 (7.4-10.4) 10/15/16 06:03 Neut % (Auto) 71.5 % (38-83) 10/14/16 05:59 Lymph % (Auto) 18.7 % (25-47) L 10/14/16 05:59 [place] % (Auto) 9.2 % (1-9) H 10/14/16 05:59 Eos % (Auto) 0.3 % (0-6) 10/14/16 05:59 Baso % (Auto) 0.3 % (0-2) 10/14/16 05:59 Absolute Neuts (auto) 5.5 10^3/ul (1.5-7.7) 10/14/16 05:59 Absolute Lymphs (auto) 1.4 10^3/ul (1.0-4.8) 10/14/16 05:59 Absolute Monos (auto) 0.7 10^3/ul (0-0.8) 10/14/16 05:59 Absolute Eos (auto) 0 10^3/ul (0-0.6) 10/14/16 05:59 Absolute Basos (auto) 0 10^3/ul (0-0.2) 10/14/16 05:59 Absolute Nucleated RBC 0 10^3/ul 10/14/16 05:59 Nucleated RBC % 0 10/14/16 05:59 VBG pH 7.31 (7.33-7.43) L 10/12/16 08:41 VBG pCO2 44 mmHg (41-51) 10/12/16 08:41 VBG pO2 84 mmHg (35-45) H 10/12/16 08:41 VBG HCO3 21.8 mmol/L (24-28) L 10/12/16 08:41 VBG O2 Saturation 97.7 % (70-80) H 10/12/16 08:41 VBG Base Excess -3.9 (0-4) L 10/12/16 08:41 Sodium 138 mmol/L (133-145) 10/15/16 06:03 Potassium 3.9 mmol/L (3.5-5.0) 10/15/16 06:03 Chloride 107 mmol/L (101-111) 10/15/16 06:03 Carbon Dioxide 26 mmol/L (22-32) 10/15/16 06:03 Anion Gap 5 mmol/L (2-11) 10/15/16 06:03 BUN 7 mg/dL (6-24) 10/15/16 06:03 Creatinine 0.62 mg/dL (0.51-0.95) 10/15/16 06:03 Est GFR ( Amer) 131.6 (>60) 10/15/16 06:03 Est GFR (Non-Af Amer) 102.3 (>60) 10/15/16 06:03 BUN/Creatinine Ratio 11.3 (8-20) 10/15/16 06:03 Glucose 89 mg/dL (70-100) 10/15/16 06:03 POC Glucose (mg/dL) 193 mg/dL (74-106) H 10/14/16 21:49 Hemoglobin A1c 15.1 % (Less than 6.0) H 10/12/16 15:04 Lactic Acid 1.0 mmol/L (0.5-2.0) 10/12/16 15:04 Calcium 7.6 mg/dL (8.6-10.3) L 10/15/16 06:03 Total Bilirubin 0.80 mg/dL (0.2-1.0) 10/13/16 06:18 AST 11 U/L (13-39) L 10/13/16 06:18 ALT 8 U/L (7-52) 10/13/16 06:18 Alkaline Phosphatase 61 U/L (34-104) 10/13/16 06:18 Total Creatine Kinase 67 U/L (10-223) 10/12/16 07:35 Troponin I 0.01 ng/mL (<0.04) 10/12/16 07:35 C-Reactive Protein 38.31 mg/L (< 5.00) H 10/12/16 07:35 B-Natriuretic Peptide 76 pg/mL (-100) 10/12/16 07:35 Total Protein 5.6 g/dL (6.4-8.9) L 10/13/16 06:18 Albumin 2.7 g/dL (3.2-5.2) L 10/13/16 06:18 Globulin 2.9 g/dL (2-4) 10/13/16 06:18 Albumin/Globulin Ratio 0.9 (1-3) L 10/13/16 06:18 Amylase 18 U/L (29-103) L 10/12/16 07:35 Lipase 12 U/L (11.0-82.0) 10/12/16 07:35 Beta HCG, Quant < 0.60 mIU/mL 10/12/16 07:35 Urine Color Yellow 10/12/16 08:41 Urine Appearance Cloudy 10/12/16 08:41 Urine pH 5.0 (5-9) 10/12/16 08:41 Ur Specific [place] 1.032 (1.010-1.030) H 10/12/16 08:41 Urine Protein 2+(100 mg/dl) (Negative) H 10/12/16 08:41 Urine Ketones Trace (Negative) H 10/12/16 08:41 Urine Blood 1+ (Negative) H 10/12/16 08:41 Urine Nitrate Negative (Negative) 10/12/16 08:41 Urine Bilirubin Negative (Negative) 10/12/16 08:41 Urine Urobilinogen Negative (Negative) 10/12/16 08:41 Ur Leukocyte Esterase 3+ (Negative) H 10/12/16 08:41 Urine WBC (Auto) 3+(>20/hpf) (Absent) H 10/12/16 08:41 Urine RBC (Auto) 1+(3-5/hpf) (Absent) H 10/12/16 08:41 Ur Squamous Epith Cells Present (Absent) H 10/12/16 08:41 Urine Bacteria Absent (Absent) 10/12/16 08:41 Urine Glucose 3+(>=500 mg/dl) (Negative) H 10/12/16 08:41 Assessment: POD # 3 s/p emergent repair of incarcerated right inguinal hernia causing SBO Ileus resolved WBC nl, normal renal function Plan: Advance diet OK to shower OK from general surgical standpoint for d/c today with follow up in office next week. She does not need antibiotics for this problem.
[2016-10-15 07:39] VITALS: BP 142/71
[2016-10-15] MEDS: Insulin LISPRO* 1 UNITS UNIT SUBCUT SCH ×2 (08:32→12:08)
[2016-10-15] MEDS: DULoxetine DR CAP* 30 MG CAP.DR PO SCH (08:38)
[2016-10-15] MEDS: Gabapentin CAP(*) 300 MG PO SCH ×2 (08:38→14:02)
[2016-10-15] MEDS: Moisturizing CREAM* 120 GM JAR TOPICAL SCH ×2 (08:38→14:10)
--- NOTE | 2016-10-15 13:33 | CONSULT ---
Subjective Reason for Visit: Type 2 diabetes with hyperglycemia - Request for diabetes education Admission Date: 10/12/16 History Of Present Illness: 51 year old woman with long history of type 2 diabetes and peripheral neuropathy admitted with nausea and vomiting and was found to have an incarcerated inguinal hernia and subsequent small bowel obstruction. The hernia was repaired and the small bowel obstruction has resolved with conservative treatment. Her HgbA1C was 15.1% on admission. Her diabetes is managed by her PCP at the [facility] and she takes 100 units of Lantus in the morning. She does not follow any specific dietary guidelines. Reports using an insulin pump in the past but found it too labor intensive and went through a period of heavy drug (crack cocaine) and alcohol use and discontinued it. She denies hypoglycemic episodes and reports that her usual glucose level is approximately 300 - 400 mg/dl. Patient History Surgical History: Yes Surgery Procedure, Year, and Place: LEFT FOOT BIG [id number] Objective Allergies Allergy/AdvReac Type Severity Reaction Status Date / Time Amoxicillin Allergy Unknown Verified 10/12/16 16:29 Reaction Details Latex Allergy Unknown Verified 10/12/16 16:29 Reaction Details Miconazole [From Monistat] Allergy Blisters Verified 07/10/16 09:40 Home Medications Medication Instructions Recorded Confirmed Type DULoxetine DR CAP* [Cymbalta CAP*] 30 mg PO DAILY 10/12/16 10/12/16 History Gabapentin TAB(NF) [Neurontin 600 600 mg PO TID 10/12/16 10/12/16 History mg TAB(NF)] Hospital Medications: Current Medications Acetaminophen (Tylenol Tab*) 650 mg PO Q6H PRN PRN Reason: pain, fever Last Admin: 10/14/16 12:30 Dose: 650 mg Acetaminophen/Hydrocodone Bitart ([place] 5-325 Tab*) 1 tab PO Q4H PRN PRN Reason: PAIN Last Admin: 10/15/16 12:49 Dose: 1 tab Dextrose (D50w Syringe 50 Ml*) 12.5 gm IV PUSH .FOR FS < 60 - SS PRN PRN Reason: FS < 60 Duloxetine HCl (Cymbalta Cap*) 30 mg PO DAILY [facility] Last Admin: 10/15/16 08:38 Dose: 30 mg Gabapentin (Neurontin Cap(*)) 600 mg PO TID [facility] Last Admin: 10/15/16 08:38 Dose: 600 mg Heparin Sodium (Porcine) (Heparin Vial(*)) 5,000 units SUBCUT Q8HR [facility] Last Admin: 10/15/16 05:55 Dose: 5,000 units Insulin Human Lispro (Humalog*) 0 units SUBCUT ACHS [facility] PRN Reason: Protocol Last Admin: 10/15/16 12:08 Dose: 6 units Morphine Sulfate (Morphine Inj (Syringe)*) 2 mg IV Q4H PRN PRN Reason: PAIN - MILD Last Admin: 10/13/16 17:22 Dose: 2 mg Morphine Sulfate (Morphine Inj (Syringe)*) 2 mg IV Q1H PRN PRN Reason: PAIN - SEVERE Multi-Ingredient Ointment (Hydrocerin*) 1 applic TOPICAL TID [facility] Last Admin: 10/15/16 08:38 Dose: 1 applic Ondansetron HCl (Zofran Inj*) 4 mg IV Q4H PRN PRN Reason: NAUSEA Last Admin: 10/13/16 20:06 Dose: 4 mg Prochlorperazine Edisylate (Compazine Inj*) 5 mg IV Q6H PRN PRN Reason: NAUSEA/VOMITING Last Admin: 10/12/16 22:04 Dose: 5 mg Lab Data: VBG pH 7.31 (7.33-7.43) L 10/12/16 08:41 Sodium 138 mmol/L (133-145) 10/15/16 06:03 Potassium 3.9 mmol/L (3.5-5.0) 10/15/16 06:03 BUN 7 mg/dL (6-24) 10/15/16 06:03 Creatinine 0.62 mg/dL (0.51-0.95) 10/15/16 06:03 Hemoglobin A1c 15.1 % (Less than 6.0) H 10/12/16 15:04 Calcium 7.6 mg/dL (8.6-10.3) L 10/15/16 06:03 AST 11 U/L (13-39) L 10/13/16 06:18 ALT 8 U/L (7-52) 10/13/16 06:18 Vital Signs: Vital Signs 10/15/16 10/15/16 10/15/16 05:55 07:33 07:55 Temperature 97.2 F Pulse Rate 70 Respiratory 18 18 18 Rate Blood Pressure 142/71 (mmHg) O2 Sat by Pulse 98 Oximetry 10/15/16 10/15/16 10/15/16 08:00 08:38 10:38 Temperature Pulse Rate Respiratory 18 18 18 Rate Blood Pressure (mmHg) O2 Sat by Pulse Oximetry 10/15/16 10/15/16 10/15/16 11:28 12:12 12:49 Temperature 97.5 F Pulse Rate 75 Respiratory 18 16 Rate Blood Pressure 142/71 (mmHg) O2 Sat by Pulse 89 96 Oximetry Height: 5 ft 3 in Weight: 170 lb Body Mass Index (BMI): 30.1 Plan Of Care Patient's Next Step: Discussed recommendation for intensive lifestyle counseling to improve glycemic control. She is planning to follow up with her PCP at the [facility] office. She is on a large amount of Lantus and may need additional meal time coverage. She has a low level of nutrition knowledge and will need education reinforcement regarding carbohydrate counting. Education Prior Diabetic Education: Yes Handouts Provided: CDC: Taking charge of your diabetes Recognition and treatment of hypoglycemia Goals Goals: 15 minutes was spent in direct counseling and education of the patient
--- NOTE | 2016-10-15 20:00 | DS ---
DISCHARGE SUMMARY: DATE OF ADMISSION: 10/12/16 DATE OF DISCHARGE: 10/15/16 PRIMARY CARE PROVIDER: Khai Lam MD. DISCHARGE DIAGNOSES: 1. Small-bowel obstruction due to incarcerated right inguinal hernia. Status post open repair with mesh of right indirect incarcerated inguinal hernia performed by Dr. Valdes on 10/12/16. 2. Subsequent postoperative ileus that resolved. 3. Mild diabetic ketoacidosis on presentation. The patient never required insulin drip. 4. Chronic right heel ulcer, most likely due to diabetic foot ulcer. 5. Hypoxemia, most likely due to combination of previously undiagnosed chronic obstructive pulmonary disease and postoperative atelectasis. LABORATORY DATA AND STUDIES PERFORMED DURING THE HOSPITAL STAY: Included: On 10/12/16, white blood cell count of 6.6, hemoglobin 9.2, hematocrit of 29, and platelets of 227. Sodium was 138, potassium 3.9, chloride 107, carbon dioxide 25, BUN 7, creatinine 0.62. Microbiology study shows initial blood cultures that were positive for Staphylococcus epidermidis thought to be due to contamination. Portable chest x-ray obtained at admission, impression: "Low lung volumes. No active cardiopulmonary disease." Abdomen and pelvis CT obtained on 10/12/16, impression: "There is mild distention of the small bowel with a transition to decompressed small bowel with a right inguinal hernia which may indicate early partial obstruction at the level of the hernia sac. Small amount of perihepatic ascites. No hydronephrosis or nephrolithiasis. Cholelithiasis." Foot x-ray obtained on 10/13/16, impression: "No acute osseous injury. There is no appreciable erosion or periosteal reaction." Plain film findings of osteomyelitis are relatively late findings. If there is persistent clinical concern for osteomyelitis, recommend correlation with followup and imaging. Three- phase bone scanning, white blood cell count, and/or MRI of the affected region." Lower extremity MRI on the right side performed on 10/14/16, impression: " There is some minimal increased signal in the lateral aspect of the calcaneus; however, no associated soft tissue edema is noted. This may represent reactive change. No definite osteomyelitis is noted. There is no evidence of drainable fluid collections, although there is some muscular edema present." Arterial Dopplers in the lower extremities performed on 10/13/16, impression: "Bilateral elevated ankle brachial indices and digital brachial indices consistent with decreased compliance in the setting of arteriosclerosis. Normal digital waveforms. The digital brachial index was 1.02 on the right and 0.94 on the left. The TBI's on the left were 1.51 and on the right were 1.46." Consultations during the hospital stay included Dr. Valdes from Surgery. HOSPITALIZATION COURSE: Lesly Stockton is a 51-year-old female with insulin- dependent diabetes who presented to the hospital with small-bowel obstruction due to incarcerated right-sided inguinal hernia. The patient also has a history of chronic nonhealing right heel ulcer for which she was scheduled to visit a wound care center, but had not done it yet. On 10/12/16, she was admitted to our medical service and Surgery was consulted. The patient underwent an open reduction of inguinal hernia with mesh placement as described in the operative report by Dr. Valdes on 10/12/16. Postoperatively, she developed ileus that gradually improved and it resolved by the time of discharge. During her hospital stay, she was also evaluated for possibility of right heel osteomyelitis. She has right-sided heel ulcer that appears like a cracked skin that had been going on for several weeks. As mentioned in the above report, the MRI was not suggestive of osteomyelitis. The patient was seen by a wound care center nurse and recommended daily dressing changes with triple antibiotic ointment and gauze. The patient also was noted to be hypoxemic during her hospital stay. She has history of smoking and she has smoked up to 2 packs per day for 30 years. She quit 2 weeks prior to her admission. The patient stated that she had been short of breath for "quite sometime now" but she never sought evaluation with a physician. During my evaluation, she was not wheezing but she had distant breath sounds bilaterally and postoperatively, she continued to have hypoxemia requiring oxygen at 2 L. I suspect on her baseline problems with chronic lung disease, she also developed postoperative atelectasis that may improve with time. At this point, the patient is recommended to continue oxygen at 2 L at home and that was going to be provided at discharge. At discharge, the patient is recommended to follow up with Dr. Valdes in approximately a week after discharge. She is asked to call the wound care center to schedule her appointment that she already had scheduled previously. The patient also scheduled to see her primary care provider, Dr. Khai Lam , on 10/20/16 at 10:45 a.m. for hospital followup. Wound care to the right heel is to change the dressing daily with triple antibiotic ointment and covering with gauze. Ambulation as tolerated. Diet: Diabetic. Please note that due to her ileus and gradually increased diet, she had been on insulin sliding scale with good results. Apparently, prior to her admission, she was on 100 units of insulin Lantus and 20 units of insulin lispro 3 times a day. DISCHARGE MEDICATIONS: Medications at discharge will be changed to as below. 1. Insulin Lantus 20 units daily to begin on 10/16/16 presuming that the patient's diet is back to regular diabetic diet. 2. Insulin lispro 20 units with each meals subcutaneously. 3. [place] 5/325 mg 1 tablet every 4 hours p.r.n. pain. The patient received a prescription for 30 tablets total. I-STOP was checked. The last narcotic control substance was prescribed to her on 09/03/16 and it was a 15-day supply of Ultram. 4. Neurontin 600 mg 3 times a day. 5. Cymbalta 30 mg daily. Please also note that transiently during the hospital stay, she was treated for potential urinary tract infection with ceftriaxone, but her urine cultures were negative throughout her hospital stay and ceftriaxone was discontinued. The patient remained afebrile throughout her hospital stay and her initial leukocytosis that was present on the day of admission resolved. Please note this is a short summary of the patient's hospital stay. Please refer to further medical record for details. TIME SPENT: Approximately 45 minutes were spent on the patient's discharge. CC: Dr. Valdes; Khai Lam MD* [id number]/[facility] #: [id number] [facility]
== END 2016-10-15 14:25 | disposition home or self-care (01) | DRG 228 ==
LOC: ED 07:07 → SSU 12:06
PROVIDERS: ADMIT Internal Medicine; ATTEND Internal Medicine
PROC: 3E0M05Z Introduction of Adhesion Barrier into Peritoneal Cavity, Open Approach (ICD-10-PCS; 2016-10-12)
PROC: 0YU50JZ Supplement Right Inguinal Region with Synthetic Substitute, Open Approach (ICD-10-PCS; principal; 2016-10-12 17:30)
DX: K40.30 Unilateral inguinal hernia, with obstruction, without gangrene, not specified as recurrent (principal); E13.10 Other specified diabetes mellitus with ketoacidosis without coma; N39.0 Urinary tract infection, site not specified; L97.419 Non-pressure chronic ulcer of right heel and midfoot with unspecified severity; J95.89 Other postprocedural complications and disorders of respiratory system, not elsewhere classified; J98.11 Atelectasis; K91.3 Postprocedural intestinal obstruction; F17.210 Nicotine dependence, cigarettes, uncomplicated; R09.02 Hypoxemia; J44.9 Chronic obstructive pulmonary disease, unspecified; Y83.9 Surgical procedure, unspecified as the cause of abnormal reaction of the patient, or of later complication, without mention of misadventure at the time of the procedure; Y92.230 Patient room in hospital as the place of occurrence of the external cause; Z79.4 Long term (current) use of insulin; Z87.898 Personal history of other specified conditions
CPT/HCPCS: 36415; 71020; 74176; 80048; 80053; 81003; 81015; 82150; 82550; 82803; 82947; 83036; 83605; 83690; 83880; 84484; 84702; 85025; 85027; 86140; 87040; 87077; 87086; 87150; 87205; 93005; 93922; 99221; 99283; A9270-GY; C1781; J0696; J0780; J1100; J1170; J1644; J2250; J2270; J2405; J2704; J3010; J3480

== ENCOUNTER 2018-05-26 09:51 | Inpatient (IN) | payer OTHER ==
--- OUTSIDE RECORDS SUMMARY | 2018-05-26 10:00 | XMS REPORT ---
:1965 External Reference #:[id number] Author Organization [employer] Address [address] [place] [address] Phone [phone] Care Team Providers Name Role Phone Frankie Solis MD Primary Care Physician Unavailable Payers Type Date Identification Numbers Payment Provider Subscriber Commercial Effective: Policy Number: [id number] Carroll Giles 2016 Group Number: [id number] [address] PayID: [id number] [place] [address] Commercial Expires: 2016 Policy Number: BS Options Socrates Giles [id number] PayID: [id number] [address] [address] TARIK Julio [address] Advance Directives Type Date Description Status Comment Other Directive 07/23/2017 Health Care Proxy Current and Verified Problems Date Description Provider Status Onset: 10/20/2016 Chronic obstructive lung disease Khai Lam M.D. Active Onset: 10/20/2016 Diabetic neuropathy Khai Lam M.D. Active Onset: 10/20/2016 Hypoxia Khai Lam M.D. Active Onset: 10/20/2016 Diabetes mellitus Khai Lam M.D. Active Onset: 10/20/2016 History of drug abuse Khai Lam M.D. Active Note: crack cocaine - last 2012 Onset: 10/20/2016 Urinary incontinence Khai Lam M.D. Active Note: stress incontinence Onset: 10/20/2016 Ulcer of heel Khai Lam M.D. Active Family History Date Family Member(s) Problem(s) Comments Father unknown Mother Unknown Social History Type Date Description Comments Marital Status Lives With , daughter, granddaughter Cigarette Use Pack Years - 62 ETOH Use Never used alcohol Recreational Drug Use Former Drug User crack codeine - last 2012 Smoking Patient is a current smoker, Started age 19 , only smokes every day smokes when she gets nerves, a pack a month Allergies, Adverse Reactions, Alerts Date Description Reaction Status Severity Comments 10/20/2016 Aspirin migraine w/ generic active nausea 10/20/2016 Latex active break out 10/16/2016 NKDA inactive Medications Medication Date Status Form Strength Qnty SIG Indications Ordering Provider Capsaicin 05/24/ Active Cream 0.1% 42.50 Apply to E11.42 Gustavo 2018 0gm feet up to AYESHA Maldonado 4 times daily (DO Not Apply To Open Areas) Amitriptyline 05/24/ Active Tablets 25mg 30tab 1 by mouth E11.42 Gustavo HCL 2018 s every night AYESHA Maldonado at bedtime Amoxicillin/Cla 05/24/ Hx Tablets 875-125mg 20tab take one L03.116 Gustavo vulanate 2018 - s tablet q12 AYESHA Maldonado Potassium 06/03/ hours for 2018 10 days Sulfamethoxazol 05/24/ Hx Tablets 800-160mg 20tab 1 tablet by L03.116 Gustavo e/Trimethoprim 2018 - s mouth every Erica [employer]STRU[employer] DS 06/03/ 12 hours 2018 for 10 days Hydrocodone-Jass 05/24/ Active Tablets 5-325mg 28tab take 1-2 E11.42 Gustavo taminophen 2018 s tablets AYESHA Maldonado every 12 hours for pain. Crutch Set 05/24/ Active Misc 1pair For use L03.116 Gustavo 2018 while AYESHA Maldonado ambulating Admelog 05/13/ Active Solution 100Unit/M 3ml 8 units sc E11.42 Gustavo Solostar 2018 Pen-Inject L prior to AYESHA Maldonado dinner Ventolin HFA 04/21/ Active Aerosol 108(90Bas 8unit 2 puffs by Gustavo 2018 e) s mouth four AYESHA Maldonado mcg/Act times a day as needed Clobetasol 04/21/ Active Solution 0.05% 50ml apply twice B85.2 Gustavo Propionate 2018 daily to AYESHA Maldonado affected area. use for two weeks and then stop. Lyrica 04/21/ Active Capsules 150mg 60cap take one E11.42 Gustavo 2017 s capsule by AYESHA Maldonado mouth twice a day; maximum daily dose=2 Lisinopril 12/15/ Active Tablets 20mg 30tab 1 by mouth I10 Gustavo 2018 s every day AYESHA Maldonado Januvia 10/29/ Active Tablets 100mg 30tab 1 by mouth E11.42 Gustavo 2018 s every day AYESHA Maldonado Cane 10/29/ Active Misc 1unit standard E11.42 Gustavo 2018 s adjustable AYESHA Maldonado height cane. Lidocaine 09/03/ Active Cream 4% 90gm apply to Gustavo 2016 affected AYESHA Maldonado areas 3 or 4 times daily Pen [place] 09/03/ Active Misc 31G X 5 30uni use with Gustavo 2016 mm ts lantus subq AYESHA Maldonado everyday Atorvastatin 08/09/ Active Tablets 20mg 30tab take 1 Gustavo Calcium 2016 s tablet at AYESHA Maldonado bedtime Basaglar 01/29/ Active Solution 100Unit/M 30ml inject 80 Gustavo Kwikpen 2016 Pen-Inject L units daily AYESHA Maldonado Oxygen / Active Misc 2liters prn Unknown 0000 Apidra Solostar 05/13/ Hx Solution 100Unit/M 15ml 8 units E11. Gustavo 2017 - Pen-Inject L prior to AYESHA Maldonado 05/13/ dinner 2017 Lyrica 04/21/ Hx Capsules 100mg 90cap 1 by mouth E11.42 Gustavo 2017 - s 3x a day as AYESHA Maldonado 04/21/ needed mdd 2017 3 mdd 3 mdd 3 mdd 3 Lyrica 12/15/ Hx Capsules 75mg 60cap 1 by mouth E11.42 Gustavo 2018 - s twice a day AYESHA Maldonado 2017 Novolog Flexpen 12/15/ Hx Solution 100Unit/M 30uni inject 8 E11. Gustavo 2017 - Pen-Inject L ts units prior AYESHA Maldonado 05/13/ to dinner. 2017 Gabapentin 10/29/ Hx Tablets 600mg 120ta 2 by mouth M25.571 Gustavo 2018 - bs 3 times a AYESHA Maldonado 01/03/ day 2017 Venlafaxine HCL 10/29/ Hx Caps ER 75mg 90cap Three F33.0 Gustavo ER 2018 - 24HR s capsules AYESHA Maldonado 05/24/ once daily 2018 Rid Lice Hx Shampoo 0.33-4% 236ml apply and B85.0 Gustavo Killing Shampoo 2018 - let sit 10 AYESHA Maldonado 05/24/ mintues 2018 then rinse. retreat in 7 days Gabapentin 09/03/ Hx Tablets 600mg 120ta 2 by mouth M25.571 Gustavo 2017 - bs 3 times a AYESHA Maldonado 09/03/ day 2016 Lyrica 09/03/ Hx Capsules 75mg 60cap 1 by mouth E11.42 Gustavo 2017 - s twice a day AYESHA Maldonado 2017 Lisinopril 08/09/ Hx Tablets 10mg 30tab 1 by mouth Gustavo 2017 - s every day AYESHA Maldonado 2017 Escitalopram 07/23/ Hx Tablets 20mg 30tab 1 by mouth F33.0 Gustavo Oxalate 2017 - s every day AYESHA Maldonado 2017 Hydroxyzine 07/23/ Hx Capsules 25mg 60cap 1-2 caps by F41.9 Gustavo Pamoate 2016 - s mouth four AYESHA Maldonado 05/24/ times a day 2017 as needed for anxiety Ciprofloxacin 07/23/ Hx Tablets 250mg 14tab take one Gustavo HCL 2016 - tablet AYESHA Maldonado 07/30/ twice a day 2016 for 7 days. Fluconazole 07/23/ Hx Tablets 150mg 2tabs one by Gustavo 2017 - mouth january AYESHA Maldonado 07/30/ repeat in 3 2016 days as needed Metformin HCL 06/18/ Hx Tablets 500mg 120ta Not taking1 Gustavo 2017 - bs tab once AYESHA Maldonado 09/03/ daily, 2017 increase to 2 tabs once daily after a week, then 2 tabs PM 1 tab Am for a week and two tabs bid. Escitalopram 06/18/ Hx Tablets 10mg 30tab 1/2 tab F33.0 Gustavo Oxalate 2016 - s once daily AYESHA Maldonado 07/23/ for 1 week 2016 then increase to 1 tab daily. Cymbalta 12/18/ Hx Caps DR 30mg 60cap 2 tabs M25.571 Khai 2017 - Part s daily [place], 06/18/ Tom 2017 Nystatin-Triamc 12/16/ Hx Ointment 759078-9. 30uni apply to M25.571 Yohan paullone 2017 - 1Unit/GM- ts affected D. 06/18/ % area twice [facility], 2016 a day M.D. Ondansetron HCL 10/20/ Hx Tablets 8mg 60tab take 1 by Khai 2017 - s mouth Q 8 [place], 06/18/ hours prn M.D. 2016 Hydrocodone-Jass 10/20/ Hx Tablets 5-325mg 30tab 1 by mouth Khai taminophen 2017 - s every 4 , 06/18/ hours M.D. 2017 Novolog Penfill 10/20/ Hx Solution 100Unit/M 45ml 32 units E11.621 Khai 2017 - Cartridge L after meals , M.D. 2017 Advair Diskus 10/20/ Hx Aerosol 250-50mcg 60uni 1 puff Beth44.Marlena Ridley 2017 - /Dose ts twice daily , M.D. 2017 Montelukast 10/20/ Hx Tablets 10mg 30tab once daily J44.9 Khai Sodium 2017 - s [place], M.D. 2017 Ventolin HFA 10/20/ Hx Aerosol 108(90Bas 8gm 2 puffs by Beth44Naima Ridley 2017 - e) mouth four , 06/18/ mcg/Act times a day M.D. 2017 as needed Lantus Solostar / Hx Solution 100Unit/M 30ml 50 units E11.621 Alaina 0000 - Pen-Inject L daily Servin, M.D. 2017 Gabapentin / Hx Tablets 600mg 120ta 2 by mouth M25.571 Khai 0000 - bs 3 times a [place], 06/18/ day M.D. 2017 Cymbalta / Hx Caps 30mg 1 by mouth Khai 0000 - Part every day [place], M.D. 2017 Omeprazole / Hx Capsules 40mg once daily Sen 0000 Ariella Beltrán 06/18/ MD Elizalde Vital Signs Date Vital Result Comment 05/24/2018 Height 63.5 inches 5'3.50" Weight 159.00 lb Heart Rate 66 /min BP Systolic Sitting 120 mmHg BP Diastolic Sitting 68 mmHg Body Temperature 96.9 F O2 % BldC Oximetry 97 % BMI (Body Mass Index) 27.7 kg/m2 04/21/2018 Height 63.5 inches 5'3.50" Weight 166.00 lb Heart Rate 61 /min BP Systolic 106 mmHg BP Diastolic 63 mmHg Body Temperature 97.0 F O2 % BldC Oximetry 98 % BMI (Body Mass Index) 28.9 kg/m2 01/17/2018 Weight 180.75 lb Heart Rate 74 /min BP Systolic 134 mmHg BP Diastolic 79 mmHg Body Temperature 97.5 F O2 % BldC Oximetry 99 % 12/15/2017 Weight 169.00 lb Heart Rate 60 /min BP Systolic 146 mmHg BP Diastolic 90 mmHg Body Temperature 97.2 F O2 % BldC Oximetry 97 % 10/29/2017 Weight 172.50 lb Heart Rate 72 /min BP Systolic 132 mmHg BP Diastolic 84 mmHg Body Temperature 96.9 F O2 % BldC Oximetry 98 % 09/03/2017 Weight 171.25 lb Heart Rate 68 /min BP Systolic Sitting 140 mmHg BP Diastolic Sitting 82 mmHg Body Temperature 96.5 F Pain Level 7 O2 % BldC Oximetry 98 % 07/23/2017 Weight 168.50 lb Heart Rate 66 /min BP Systolic Sitting 136 mmHg BP Diastolic Sitting 80 mmHg O2 % BldC Oximetry 98 % 06/18/2017 Height 63 inches 5'3" Weight 175.00 lb Heart Rate 76 /min BP Systolic Sitting 138 mmHg BP Diastolic Sitting 86 mmHg O2 % BldC Oximetry 96 % BMI (Body Mass Index) 31.0 kg/m2 12/31/2016 Height 63 inches 5'3" Weight 165.00 lb Heart Rate 82 /min BP Systolic 134 mmHg BP Diastolic 80 mmHg Respiratory Rate 16 /min Body Temperature 96.1 F Pain Level 10 BMI (Body Mass Index) 29.2 kg/m2 12/18/2016 Weight 165.00 lb Heart Rate 68 /min BP Systolic Sitting 106 mmHg BP Diastolic Sitting 60 mmHg Respiratory Rate 15 /min Body Temperature 98.0 F O2 % BldC Oximetry 98 % 12/16/2016 Height 63 inches 5'3" Weight 167.38 lb Heart Rate 72 /min BP Systolic Sitting 128 mmHg BP Diastolic Sitting 86 mmHg Respiratory Rate 14 /min Body Temperature 96.7 F BMI (Body Mass Index) 29.6 kg/m2 11/23/2016 Height 63 inches 5'3" Weight 166.00 lb Heart Rate 72 /min BP Systolic Sitting 160 mmHg BP Diastolic Sitting 88 mmHg Respiratory Rate 14 /min Body Temperature 97.9 F BMI (Body Mass Index) 29.4 kg/m2 11/06/2016 Weight 142.38 lb Heart Rate 70 /min BP Systolic 120 mmHg BP Diastolic 78 mmHg Body Temperature 97.6 F O2 % BldC Oximetry 97 % 10/28/2016 Heart Rate 78 /min BP Systolic 130 mmHg BP Diastolic 84 mmHg Respiratory Rate 18 /min Body Temperature 97.7 F 10/21/2016 Height 64 inches 5'4" Weight 163.00 lb Heart Rate 74 /min BP Systolic 128 mmHg BP Diastolic 72 mmHg Respiratory Rate 16 /min Body Temperature 98.7 F BMI (Body Mass Index) 28.0 kg/m2 10/20/2016 Height 64 inches 5'4" Heart Rate 71 /min BP Systolic 130 mmHg BP Diastolic 80 mmHg Body Temperature 96.7 F O2 % BldC Oximetry 90 % 2.5 l/NC Results Test Date Test Result H/L Range Note Laboratory test finding 05/24/2018 Hemoglobin A1c >14 High 5-7 Laboratory test finding 05/16/2018 Vitamin B12 538 pg/mL 180-914 1 Lipid Profile (Trig/Chol/HDL) 05/16/2018 Triglycerides 172 mg/dL 2 Cholesterol 194 mg/dL 3 HDL Cholesterol 57.3 mg/dL 4 LDL Cholesterol 102 mg/dL 5 Comp Metabolic Panel 05/16/2018 Sodium 139 mmol/L 135-145 Potassium 3.5 mmol/L 3.5-5.0 Chloride 101 mmol/L 101-111 Co2 Carbon Dioxide 28 mmol/L 22-32 Anion Gap 10 mmol/L 2-11 Glucose 111 mg/dL High 70-100 Blood Urea Nitrogen 28 mg/dL High 6-24 Creatinine 1.47 mg/dL High 0.51-0.95 BUN/Creatinine Ratio 19.0 8-20 Calcium 8.8 mg/dL 8.6-10.3 Total Protein 6.3 g/dL Low 6.4-8.9 Albumin 3.7 g/dL 3.2-5.2 Globulin 2.6 g/dL 2-4 Albumin/Globulin Ratio 1.4 1-3 Total Bilirubin 0.50 mg/dL 0.2-1.0 Alkaline Phosphatase 89 U/L 34-104 Alt 13 U/L 7-52 Ast 16 U/L 13-39 Egfr Non- 37.6 >60 Egfr 45.5 >60 6 Urine Microalbumin Random 05/16/2018 Urine Creatinine 511.74 mg/dL Ur Microalbumin (mg/L) 1196.9 Urine Microalbumin/Creatinine 233.8 High <31 CBC Auto Diff 05/16/2018 White Blood Count 7.7 10^3/uL 3.5-10.8 Red Blood Count 4.26 10^6/uL 4.00-5.40 Hemoglobin 11.6 g/dL Low 12.0-16.0 Hematocrit 35 % 35-47 Mean Corpuscular Volume 82 fL 80-97 Mean Corpuscular Hemoglobin 27 pg 27-31 Mean Corpuscular HGB Conc 33 g/dL 31-36 Red Cell Distribution Width 15 % 10.5-15 Platelet Count 268 10^3/uL 150-450 Mean Platelet Volume 8.7 um3 7.4-10.4 Abs Neutrophils 4.5 10^3/uL 1.5-7.7 Abs Lymphocytes 2.6 10^3/uL 1.0-4.8 Abs Monocytes 0.4 10^3/uL 0-0.8 Abs Eosinophils 0.2 10^3/uL 0-0.6 Abs Basophils 0 10^3/uL 0-0.2 Abs Nucleated RBC 0 10^3/uL Granulocyte % 58.0 % 38-83 Lymphocyte % 33.4 % 25-47 Monocyte % 5.5 % 0-7 Eosinophil % 2.7 % 0-6 Basophil % 0.4 % 0-2 Nucleated Red Blood Cells % 0.1 Ua Routine 07/23/2017 Ua Specific [place] 1.025 Ua PH 5 Ua Color dark yellow Ua Appera cloudy Ua WBC positive Ua Protein 500 Ua Glucose 1000 Ua Ketones negative Ua Bilirubin small Ua Urobilinogen normal Ua Nitrite negative Ua Occult Blood 250 Urine Culture And 07/23/2017 Urine Culture SEE RESULT BELOW 7 Sensitivities Laboratory test finding 06/18/2017 Hemoglobin A1c 12.6 High 5-7 Laboratory test finding 12/18/2016 Hemoglobin A1c 14.0 High 5-7 Comp Metabolic Panel 11/30/2016 Sodium 131 mmol/L Low 133-145 Potassium 4.3 mmol/L 3.5-5.0 Chloride 96 mmol/L Low 101-111 Co2 Carbon Dioxide 31 mmol/L 22-32 Anion Gap 4 mmol/L 2-11 Blood Urea Nitrogen 9 mg/dL 6-24 Creatinine 0.89 mg/dL 0.51-0.95 BUN/Creatinine Ratio 10.1 8-20 Calcium 9.3 mg/dL 8.6-10.3 Total Protein 6.5 g/dL 6.4-8.9 Albumin 3.3 g/dL 3.2-5.2 Globulin 3.2 g/dL 2-4 Albumin/Globulin Ratio 1.0 1-3 Total Bilirubin 1.50 mg/dL High 0.2-1.0 Alkaline Phosphatase 96 U/L 34-104 Alt 11 U/L 7-52 Ast 12 U/L Low 13-39 Egfr Non- 67.4 >60 Egfr 86.7 >60 8 Glucose 557 mg/dL High 70-100 Laboratory test finding 11/30/2016 C Reactive Protein 2.40 mg/L < 5.00 9 1 Normal Range 180 to 914 Indeterminate Range 145 to 180 Deficient Range <145 2 Desirable: <150 Borderline High: 150-199 High: 200-499 Very High: >500 3 Desirable: <200 Borderline High: 200-239 High: >239 4 Low: <40 Desirable: 40-60 High: >60 5 Desirable: <100 Near Optimal: 100-129 Borderline High: 130-159 High: 160-189 Very High: >189 6 Because ethnic data is not always readily available, this report includes an eGFR for both -Americans and non- Americans. The National Kidney Disease Education Program (NKDEP) does not endorse the use of the MDRD equation for patients that are not between the ages of 18 and 70, are , have extremes of body size, muscle mass, or nutritional status, or are non- or non-. According to the National Kidney Foundation, irrespective of diagnosis, the stage of the disease is based on the level of kidney function: Stage Description GFR(mL/min/1.73 m(2)) 1 Kidney damage with normal or decreased GFR 90 2 Kidney damage with mild decrease in GFR 60-89 3 Moderate decrease in GFR 30-59 4 Severe decrease in GFR 15-29 5 Kidney failure <15 (or dialysis) 7 SEE RESULT BELOW Name: LESLY GILES : [address]: Gustavo Maldonado NP Acct: [id number] Unit: [id number] AGE: 52 Location: [facility] Re07/23/17 SEX: F Status: REG REF SPEC: [id number] ASHLEY: 07/23/17-[address]: Gustavo Maldonado NP REQ: [id number] RECD: 07/23/17 STATUS: COMP _ SOURCE: URINE SPDESC: ORDERED: Urine Culture COMMENTS: [id number] Urine Source: Random Procedure Result Reported Site Urine Culture Final 07/25/17- 0842 ML Organism 1 ESCHERICHIA COLI [place] Count >100,000 (Many) CFU/ML 1. ESCHERICHIA COLI M.I.C. RX --------- ------ Ampicillin >=32 R Cefazolin <=4 S Cefepime <=1 S Ceftriaxone <=1 S Ciprofloxacin <=0.25 S Gentamicin <=1 S Levofloxacin <=0.12 S Meropenem <=0.25 S Nitrofurantoin <=16 S Tetracycline <=1 S Pipercillin/Tazobactam <=4 S Trimethoprim/Sulfamethoxazole >=320 R Amoxicillin/Clavulanic Acid 4 S Aztreonam <=1 S Contact the Microbiology Department for any additional antibiotic reporting. * ML - MAIN LAB ([facility]) . END OF REPORT * ML=Testing performed at Main Lab DEPARTMENT OF PATHOLOGY, [address] [place] [address] Renaldo Santos M.D. Director [facility] # [id number] 8 Because ethnic data is not always readily available, this report includes an eGFR for both -Americans and non- Americans. The National Kidney Disease Education Program (NKDEP) does not endorse the use of the MDRD equation for patients that are not between the ages of 18 and 70, are , have extremes of body size, muscle mass, or nutritional status, or are non- or non-. According to the National Kidney Foundation, irrespective of diagnosis, the stage of the disease is based on the level of kidney function: Stage Description GFR(mL/min/1.73 m(2)) 1 Kidney damage with normal or decreased GFR 90 2 Kidney damage with mild decrease in GFR 60-89 3 Moderate decrease in GFR 30-59 4 Severe decrease in GFR 15-29 5 Kidney failure <15 (or dialysis) 9 Acute inflammation: >10.00 Procedures Date CPT Code Description Status Comment 11/02/2017 Diabetic Retinal Eye Exam Completed 06/18/2017 Diabetic Retinal Eye Exam Completed Document: 06/18/17 - Rec.Release/[employer] 10/27/2016 07560 Removal Devitalization Tissue Completed Wound Less Than Equal 20 Square CM 10/12/2016 03737 EKG, Interpretation Only Completed 10/12/2016 51600 Repair Hernia Inguinal > 5Yrs, Completed Incarcerated Or Strangulated 10/12/2016 65654 Repair Hernia Inguinal > 5Yrs, Completed Incarcerated Or Strangulated Encounters Type Date Location Provider CPT E/M Dx Office Visit 04/21/2018 10:20a [facility] [place] [address] E11.42 [place] I10 R09.02 B85.2 Office Visit 01/17/2018 2:00p [facility] [place] [address] E11.42 [place] F33.0 I10 Office Visit 12/15/2017 4:00p [facility] [place] [address] E11.42 [place] M79.672 I10 Office Visit 10/29/2017 9:00a [facility] [place] [address] E11.42 [place] F33.0 B85.0 Office Visit 09/03/2017 1:40p [facility] [place] [address] E11.42 [place] R19.7 Office Visit 07/23/2017 2:00p [facility] [place] [address] F33.0 [place] F41.9 R35.0 Office Visit 06/18/2017 11:00a [facility] [place] [address] E11.40 [place] Z13.220 F33.0 Office Visit 12/31/2016 11:00a Orthopedic Services Kael Banerjee, 12920 M25.571 Of Jinny MARIE M76.61 Office Visit 12/18/2016 11:00a [facility] Khai Lam, 63821 M25.571 - Kobe Santos E11.40 Office Visit 12/16/2016 2:20p [facility] Yohan Iqbal 41389 M25.571 Infectious Diseases Tom Ruggiero Office Visit 11/23/2016 4:20p [facility] Yohan Iqbal 68266 E11.40 Infectious Diseases Tom Ruggiero R21 Office Visit 11/06/2016 10:40a [facility] Khai Lam, 09931 E11.621 - Kobe Santos R52 J44.9 L97.411 Z79.4 Office Visit 10/27/2016 11:55a [facility] Mat Mckoen, 20774 E11.621 [facility] Tom L97.411 L03.115 Office Visit 10/20/2016 11:20a [facility] Khai Lam M.D. 52976 J44.9 - [place] R09.02 K40.40 E11.8 E11.40 Office Visit 10/15/2016 12:28p [facility] Xochitl Palmer, 81008 K56.69 Assoc, Hospitalists Tom E11.42 Office Visit 10/14/2016 12:28p [facility] Xochitl Palmer, 56107 E11.42 Assoc, Hospitalists Tom K56.69 Office Visit 10/13/2016 12:27p [facility] [place] [address] K56.69 Assoc, Hospitalists E13.10 Office Visit 10/12/2016 12:26p [facility] Serafin Thompson, 76784 E11.42 Assoc,[facility] Hospitalists K56.69 Office Visit 10/12/2016 7:00a [facility], 64054 K40.30 [facility] Office Visit 05/15/2015 8:19a [facility] Axel Mercado M.D. 87260 599.0 Assoc, Hospitalists 250.02 Plan of Care Future Appointment(s):07/22/2018 2:00 pm - Gustavo Maldonado NP at [facility] Internal Medicine [facility]05/24/2018 - Gustavo Maldonado NPE11.42 Type 2 diabetes mellitus with diabetic polyneuropathyNew Medication:Capsaicin 0.1 %Amitriptyline HCL 25 mgHydrocodone-Acetaminophen 5-325 mgComments:It is VERY important that you get in with an stockroom clerk. I have referred you in the past.The pain you are experiencing is related to nerve pain from diabetes. You can start using the Capsaicin cream on your feet up to 4 times daily. DO NOT apply to open areas. Start taking the amitriptyline at night. Taking this regularly can help with the nerve pain.Use the hydrocodone sparingly when pain is severe.Follow up:Pt. was referred to Dr. St on 04/21. She has not heard from that office. Can she be scheduled this week or early next week?L03.116 Cellulitis of left lower limbNew Medication:Amoxicillin/Clavulanate Potassium 875-125 mgSulfamethoxazole/ Trimethoprim DS 800-160 mgCrutch SetComments:I am prescribing two different antibiotics today. It is important to start both and to complete the entire course. I am going to contact Dr. Luong's office to set you up an appointment soon. If you have ANY spreading redness, increased pain, fever, chills, or new symptoms go to the hospital.Follow up:1 week f/uS91.102S Unsp opn wnd left great toe w/o damage to nail, sequelaNew Xrays:Foot Left 3+ VWS
--- NOTE | 2018-05-26 10:14 | ED ---
HPI Diabetic - HPI Summary HPI Summary: This patient is a 52 year old F presenting to [facility] accompanied by a male with a chief complaint of her sugars being way out of whack. Pt states that she has been working with Dr. Smalls in an attempt to get her an insulin pump but she states her insurance will not cover it. She said for the last two days her blood glucose could not be read at home because it was out of range of her finger stick reader. A finger stick was performed by the nurse in room which also showed that it was out of range. Pt also has an infection on her left great toe that she states was healing until she walked barefoot a couple days ago which re-infected it, she is currently on abx for this infection. Pt states she has chronically numb feet and is using crutches to ambulate currently. The patient rates the pain 5/10 in severity. Pt is requesting to be admitted and states that her doctor instructed her that she should be. - History Of Current Complaint Chief Complaint: EDDiabeticProb Time Seen by Provider: 05/26/18 10:08 Hx Obtained From: Patient Hx Last Menstrual Period: 04/13/15 Onset/Duration: Lasting Days, Still Present Timing: Constant Severity Initially: Severe Severity Currently: Severe Character: Alert Aggravating: Other - cannot afford insulin pump Associated Signs & Symptoms: Negative - fever - Allergies/Home Medications Allergies/Adverse Reactions: Allergies Allergy/AdvReac Type Severity Reaction Status Date / Time latex Allergy Hives Verified 05/26/18 10:30 miconazole Allergy Blisters Verified 05/26/18 10:30 Home Medications: Home Medications Amitriptyline TAB* [Elavil TAB*] 25 mg PO BEDTIME 05/26/18 [History Confirmed ] Amoxicillin PO (*) [Amoxicillin 875 MG (*)] 875 mg PO BID 05/26/18 [History Confirmed 05/26/18] Atorvastatin* [Lipitor*] 20 mg PO DAILY 05/26/18 [History Confirmed 05/26/18] Hydrocodone/Acetaminophen [Hydrocodone-Acetamin 5-325 mg] 1 tab PO Q6H PRN 05/26 [History Confirmed 05/26/18] Pregabalin CAP(*) [Lyrica CAP(*)] 75 mg PO BID 05/26/18 [History Confirmed 05/26] Sitagliptin Phosphate [Januvia] 100 mg PO DAILY 05/26/18 [History Confirmed 03/07] Sulfamethox/Trimethoprim DS* [Bactrim DS 800/160 TAB*] 1 tab PO BID 05/26/18 [ History Confirmed 05/26/18] Venlafaxine EXT RELEASE CAP* [Effexor Xr CAP*] 225 mg PO DAILY 05/26/18 [ History Confirmed 05/26/18] PMH/Surg Hx/FS Hx/Imm Hx Endocrine/Hematology History: Reports: Hx Diabetes - TYPE 2 Denies: Hx Anticoagulant Therapy, Hx Blood Disorders, Hx Blood Transfusions, Hx Bone Marrow Disease, Hx Thyroid Disease, Hx Anemia, Hx Unexplained Bleeding Cardiovascular History: Denies: Hx Hypertension, Hx Pacemaker/ICD, Other Cardiovascular Problems/ Disorders Respiratory History: Reports: Hx Chronic Obstructive Pulmonary Disease (COPD) - DX ON 10/2016, Other Respiratory Problems/Disorders - HYPOXIA, USES O2 AT 2.5 L NC PRN Denies: Hx Asthma GI History: Denies: Hx Ulcer, Other GI Disorders History: Reports: Hx Kidney Infection, Other Problems/Disorders - URINARY RETENTION Denies: Hx Renal Disease Musculoskeletal History: Reports: Hx Arthritis - BILATERAL HANDS, BACK, Hx Back Problems, Other Musculoskeletal History - INCARCERATED RIGHT INGUINAL HERNIA- 2016.LEFT BIG TOE HARDWARE TO BE REMOVED Sensory History: Reports: Hx Contacts or Glasses - GLASSES Denies: Hx Hearing Aid Opthamlomology History: Reports: Hx Contacts or Glasses - GLASSES Neurological History: Reports: Other Neuro Impairments/Disorders - Numbness and tingling Psychiatric History: Reports: Hx Anxiety, Hx Depression Denies: Hx Panic Disorder - Surgical History Surgery Procedure, Year, and Place: LEFT FOOT BIG [id number]. HERNIA REPAIR 10/15/16 INCARCERATED INDIRECT INGUINAL HERNIA Hx Anesthesia Reactions: No Infectious Disease History: No Infectious Disease History: Denies: Hx Hepatitis, Hx Human Immunodeficiency Virus (HIV), History Other Infectious Disease, Traveled Outside the [place] in Last 30 Days - Family History Known Family History: Positive: Diabetes - Social History Lives: With Family Alcohol Use: None Substance Use Type: Reports: None Hx Tobacco Use: Yes Smoking Status (MU): Former Smoker Type: Cigarettes Amount Used/How Often: 1 PACK PER 3 DAYS Have You Smoked in the Last Year: Yes Review of Systems Negative: Fever Positive: Other - increased blood glucose Positive: Other - toe infection All Other Systems Reviewed And Are Negative: Yes Physical Exam - Summary Physical Exam Summary: Appearance: Well-appearing, Well-nourished, lying in bed comfortably Skin: Ulcer at the plantar aspect of the great toe on the left foot Eyes: sclera anicteric, no conjunctival pallor ENT: mucous membranes moist, pharynx appears normal Neck: Supple, nontender Respiratory: Clear to auscultation, no signs of respiratory distress Cardiovascular: Normal S1, S2. No murmurs. Normal distal pulses in tibial and radial bilaterally. Abdomen: Soft, nontender, normal active bowel sounds present Musculoskeletal: Normal, Strength/ROM Intact Neurological: A&Ox3, awake and alert, mentation is normal, speech is fluent and appropriate Psychiatric: affect is normal, does not appear anxious or depressed Triage Information Reviewed: Yes Vital Signs On Initial Exam: Initial Vitals Temp Pulse Resp BP Pulse Ox 97.7 F 65 19 152/89 99 05/26/18 09:54 05/26/18 09:54 05/26/18 09:54 05/26/18 09:54 05/26/18 09:54 Vital Signs Reviewed: Yes Diagnostics - Vital Signs Vital Signs Temp Pulse Resp BP Pulse Ox 05/26/18 09:54 97.7 F 65 19 152/89 99 - Laboratory Result Diagrams: 05/26/18 10:29 05/26/18 10:29 Lab Statement: Any lab studies that have been ordered have been reviewed, and results considered in the medical decision making process. - Radiology Foot Xray Radiology Interpretation Completed By: Radiologist - 1. POSTSURGICAL CHANGE. 2. NO APPRECIABLE EROSION OR PERIOSTEAL REACTION. 3. PLAIN FILM FINDINGS OF OSTEOMYELITIS ARE RELATIVELY LATE FINDINGS. IF THERE IS PERSISTENT CLINICAL CONCERN FOR OSTEOMYELITIS, RECOMMEND CORRELATION WITH FOLLOWUP IMAGING, THREE- PHASE BONE SCANNING, WHITE BLOOD CELL SCAN, AND/OR MRI OF THE AFFECTED REGION. ED physician has reviewed this radiology report. - EKG 1028 Cardiac Rate: Bradycardia EKG Rhythm: Sinus Rhythm - NSR at 58 BPM, P waves, QRS complex, and T waves are within normal limits, T waves and intervals are normal, no ischemic changes. This is a normal EKG Diabetic Course/Dx - Course Course Of Treatment: Pt presents with elevated blood glucose and hx of DM. An EKG reveals NSR at 58 BPM, P waves, QRS complex, and T waves are within normal limits, T waves and intervals are normal, no ischemic changes. This is a normal EKG. . Foot XR reveals, per radiologist, 1. POSTSURGICAL CHANGE. 2. NO APPRECIABLE EROSION OR PERIOSTEAL REACTION. 3. PLAIN FILM FINDINGS OF OSTEOMYELITIS ARE RELATIVELY LATE FINDINGS. IF THERE IS. PERSISTENT CLINICAL CONCERN FOR OSTEOMYELITIS, RECOMMEND CORRELATION WITH FOLLOWUP. IMAGING, THREE- PHASE BONE SCANNING, WHITE BLOOD CELL SCAN, AND/OR MRI OF THE AFFECTED. REGION. Bloodwork and UA obtained. In the ED course the patient was given IV fluids, insulin, and ceftriaxone. We discussed patient care with Dr. Gustavo Maldonado and they have been trying to get her a pump but she has been missing centerless grinder tender appointments. We discussed patient care with Dr. Palmer, hospitalist who has accepted the patient for admission. Patient will be admitted to [facility]. The patient is agreeable with this plan. - Diagnoses Provider Diagnoses: Diabetes mellitus, insulin dependent (IDDM), uncontrolled Discharge - Sign-Out/Discharge Documenting (check all that apply): Patient Departure - Discharge Plan Condition: Guarded Disposition: ADMITTED TO [facility] - Billing Disposition and Condition Condition: GUARDED Disposition: Admitted to [facility] - Attestation Statements Document Initiated by Scribe: Yes Documenting Scribe: Leonidas Briggs Provider For Whom Carmelae is Documenting (Include Credential): Oziel Frank MD Scribe Attestation: Leonidas Blanca , scribed for Oziel Frank MD on 05/26/18 at 2154. Scribe Documentation Reviewed: Yes Provider Attestation: The documentation as recorded by the Leonidas dailey accurately reflects the service I personally performed and the decisions made by me, Oziel Frank MD Consult Consult: 12:08 We discussed patient care with Dr. Gustavo Maldonado and they have been trying to get her a pump but she has been missing centerless grinder tender appointments. 12:15 We discussed patient care with Dr. Palmer, hospitalist who has accepted the patient for admission. Patient will be admitted to [facility].
[2018-05-26 10:38] LABS: ABS Basophils 0 10^3/ul (0-0.2); ABS Eosinophils 0.1 10^3/ul (0-0.6); ABS Lymphocytes 1.1 10^3/ul (1.0-4.8); ABS Monocytes 0.3 10^3/ul (0-0.8); ABS Neutrophils 4.2 10^3/ul (1.5-7.7); ABS Nucleated RBC 0 10^3/ul; Eosinophil % 2.2 % (0-6); Hematocrit 37 % (35-47); Mean Corpuscular HGB Conc 33 g/dl (31-36); Mean Corpuscular Hemoglobin 27 pg (27-31); Mean Corpuscular Volume 83 fL (80-97); Mean Platelet Volume 8.3 um3 (7.4-10.4); Nucleated Red Blood Cells % 0.3; Platelet Count 225 10^3/ul (150-450); Red Blood Count 4.41 10^6/ul (4.00-5.40); Red Cell Distribution Width 15 % (10.5-15); White Blood Count 5.8 10^3/ul (3.5-10.8)
[2018-05-26] MEDS: NS 0.9% 1000 ML* 2,000 ML IV ONE ×2 (10:38→10:47)
--- NOTE | 2018-05-26 11:01 | RAD ---
HISTORY: ulcer plantar great toe,ball of foot COMPARISONS: None VIEWS: 3 , Frontal, lateral, and oblique views of the left foot FINDINGS: BONE DENSITY: Normal. BONES: The patient is status post fusion across the first MTP joint. There is no hardware failure or osteolysis. There is no appreciable erosion or periosteal reaction. JOINTS: There is no arthropathy. ALIGNMENT: There is no dislocation. SOFT TISSUES: A soft tissue defect is noted along the plantar surface of the first digit distally. OTHER FINDINGS: None. IMPRESSION: 1. POSTSURGICAL CHANGE. 2. NO APPRECIABLE EROSION OR PERIOSTEAL REACTION. 3. PLAIN FILM FINDINGS OF OSTEOMYELITIS ARE RELATIVELY LATE FINDINGS. IF THERE IS PERSISTENT CLINICAL CONCERN FOR OSTEOMYELITIS, RECOMMEND CORRELATION WITH FOLLOWUP IMAGING, THREE-PHASE BONE SCANNING, WHITE BLOOD CELL SCAN, AND/OR MRI OF THE AFFECTED REGION.
[2018-05-26 11:04] LABS: EGFR Non-African American 61.5 (>60)
[2018-05-26] MEDS ORDERED: Insulin REGULAR(*) 1 UNITS UNIT SUBCUT ONE (11:39)
[2018-05-26 12:01] LABS: Urine Appearance Cloudy; Urine Blood 1+ (Negative); Urine Color Yellow; Urine Ketones Negative (Negative); Urine Protein 2+(100 mg/dL) (Negative); Urine Red Blood Cell 2+(6-10/hpf) (Absent); Urine Specific Gravity 1.025 (1.010-1.030); Urine Urobilinogen Negative (Negative); Urine White Blood Cell 2+(11-20/hpf) (Absent)
[2018-05-26] MEDS ORDERED: cefTRIAXone(*) 1 GM in NS 0.9% 50 ML* 50 ML IVPB ONE (12:11)
[2018-05-26] MEDS ORDERED: Ondansetron INJ* 2 MG/ML VIAL IV PRN (13:21)
[2018-05-26] MEDS ORDERED: Acetaminophen TAB* 325 MG PO PRN (13:21)
[2018-05-26] MEDS ORDERED: hydrOXYzine HCL TAB* 25 MG PO PRN (13:26)
[2018-05-26] MEDS ORDERED: NS 0.9% 1000 ML* 1,000 ML IV SCH (13:30)
[2018-05-26] MEDS ORDERED: Insulin LISPRO* 1 UNITS UNIT SUBCUT SCH (14:00)
[2018-05-26] MEDS ORDERED: Albuterol 2.5 MG/3 ML NEB.SOL* (0.083%) INH PRN (14:40)
[2018-05-26] MEDS: HYDROcodone/ACETAMIN 5-325 MG* 1 TAB PO PRN ×2 (17:01→22:47)
[2018-05-26] MEDS: Gabapentin CAP(*) 300 MG PO SCH ×2 (17:03→20:26)
[2018-05-26] MEDS: Insulin GLARGINE(*) 1 UNITS UNIT SUBCUT SCH ×2 (17:04→22:50)
[2018-05-26] MEDS: Insulin LISPRO* 1 UNITS UNIT SUBCUT SCH ×2 (17:07→21:09)
[2018-05-26] MEDS: Heparin VIAL(*) 5000 UNITS/ML VIAL (FIVE THOUSAND) SUBCUT SCH ×2 (17:08→20:35)
[2018-05-26] MEDS: Sulfamethox/Trimethoprim DS 800/160* TAB PO SCH (20:27)
--- NOTE | 2018-05-26 20:37 | HP ---
ATTENDING PROVIDER ADDENDUM NOW INCLUDED ON THIS REPORT CC: Gustavo Maldonado NP * HISTORY AND PHYSICAL: DATE OF ADMISSION: 05/26/18 PRIMARY CARE PROVIDER: Gustavo Maldonado NP ATTENDING PHYSICIAN: Dr. Xochitl Palmer * (report dictated by Kandis Abrams NP) . CHIEF COMPLAINT: 1. Elevated blood sugar. 2. Left great toe ulcer. HISTORY OF PRESENT ILLNESS: Ms. Mcgregor is a 52-year-old female with a past medical history of diabetes mellitus type 2, hypertension, peripheral neuropathy , COPD, arthritis, anxiety, and depression, who presents to the ED today with complaints of increasing blood sugar and worsening of an ulcer on her left foot. She reports that over the last 2 days, her glucose has been out of range on her home meter. She does report that on a typical day, she is around 400 fasting and it appears as though her last A1c with her PCP on 04/21/18 was 14%. She reports feeling "tired" and also reports polydipsia and polyuria. She reports that her appetite has been low, but she is not sure if she has lost any weight. She reports feeling "cold" most of the time. Denies nausea or vomiting. She does report occasional shortness of breath, which she states is associated with her anxiety, for which she takes p.r.n. hydroxyzine and this is typical for her. Her PCP has been trying to get her in with an bowling ball marker , but she states she has been unable as she cannot find an bowling ball marker who accepts her insurance; therefore, she has not been able to get an insulin pump, which she has been looking to get for quite some time. She reports that the wound on her left great toe has been a problem on and off for quite some time ( possibly years?). She reports that when healed, it looks like a callus. She states that she had been in a walking boot prescribed by her auger machine offbearer, which she has been out of for 3 weeks now and she states that the ulcer had closed during that time. On Wednesday, she went to the [facility], it began raining and her shoes became wet, so she took [place] her shoes [place] After this, she noted that the wound had reopened. She did see her PCP on Wednesday who recommended she go to the emergency room for further evaluation, although she chose to hold off at that time. She was prescribed Bactrim and amoxicillin, which she has been taking since then. She has also been using crutches per the recommendation of her PCP to avoid any pressure on that foot. She was scheduled to have an appointment with her auger machine offbearer tomorrow. She notes that she has significant neuropathy of her feet and has no feeling below her knees, although she does rate the pain in her foot a 5/10. Of note, there is a wound culture from the left great toe from 05/24/18, which grew Staph aureus and normal deborah. She states that in the past, she has had surgery on the left foot, during which time a pin and juan carlos were implanted. While in the emergency room, Ms. Mcgregor was noted to have a serum glucose of 667 as well as a UA concerning for urinary tract infection. She also had an x-ray of the left foot, which showed no acute findings. Although because of her increased blood sugar and multiple possible sources of infection, the Hospitalists were asked to evaluate for admission. PAST MEDICAL HISTORY: 1. Diabetes mellitus type 2. 2. Hypertension. 3. COPD, on 2.5 L at h.s. and p.r.n. 4. Peripheral neuropathy. 5. Arthritis. 6. Anxiety. 7. Depression. PAST SURGICAL HISTORY: 1. Left foot surgery. 2. Kidney stone removal. MEDICATIONS: Home medications: 1. Hydrocodone/acetaminophen 1 tab p.o. q.6 p.r.n. 2. Januvia 100 mg p.o. daily. 3. Venlafaxine 225 mg p.o. daily. 4. Bactrim 800/160 one tab p.o. b.i.d. 5. Lyrica 75 mg p.o. b.i.d. 6. Gabapentin 600 mg p.o. t.i.d. 7. Atorvastatin 20 mg p.o. daily. 8. Amoxicillin 875 mg p.o. b.i.d. 9. Amitriptyline 25 mg p.o. at bedtime. 10. Hydroxyzine 25 mg 1 tab 4 times a day p.r.n. 11. Lisinopril 1 tab p.o. daily. 12. Insulin glargine 80 units subcu b.i.d. ALLERGIES: LATEX (hives) and MICONAZOLE (blisters). FAMILY HISTORY: Family history is completely unknown as the patient is adopted. She reports that her children do not have any medical problems. SOCIAL HISTORY: The patient has a [id number] history of smoking. She reports she quit in 2017, though she states she still smokes 1 cigarette while she is anxious. According to notes from her PCP, she has admitted to smoking about a pack per month recently. She denies any alcohol use. She reports history of substance abuse, last using crack cocaine in 2012. She is currently disabled, living with her and children. The patient's , Mc Mcgregor, will be her surrogate decision maker in the event she is unable to make her own decisions. REVIEW OF SYSTEMS: A 14-point review of systems was performed. All the pertinent positive and negative findings are in the HPI. PHYSICAL EXAMINATION GENERAL: Ms. Mcgregor is a well-developed, well-nourished, slightly overweight middle- aged white woman, sitting in bed, in no acute distress, appears her stated age. VITAL SIGNS: Temp 97.7, heart rate 59, respiratory rate 15, oxygen saturation 96%, blood pressure 178/85. HEENT: Head normocephalic, atraumatic. Visual garduno grossly intact. Pupils equal, round, and reactive to light and accommodation. Extraocular movements intact. Hearing grossly intact. Mucous membranes moist. NECK: Full range of motion. Trachea at midline. No lymphadenopathy. RESPIRATORY: Symmetrical chest expansion. No chest wall deformities. Lungs clear to auscultation throughout. No rhonchi, wheezes, or rales. CARDIOVASCULAR: Regular rate and rhythm. S1, S2 present and no murmurs, rubs, or gallops. No JVD. ABDOMEN: Soft, nontender to palpation. Bowel sounds normoactive. No bruits appreciated. EXTREMITIES: Skin warm and smooth bilaterally. No edema. No clubbing or cyanosis. Pedal pulses +2 bilaterally. No sensation below the knees bilaterally, though the lower extremities are warm. MUSCULOSKELETAL: Full range of motion. No deformities. NEURO: Awake, drowsy, oriented x4. Cranial nerves II through XII grossly intact. Moves all extremities. SKIN: There is an approximately nickel-sized callous to the left great toe, which has multiple fissures. There is no warmth, erythema, or purulent drainage. DIAGNOSTIC STUDIES/LAB DATA: WBC is 5.8, RBC is 4.41, hemoglobin 12, hematocrit 37, platelets 225. Sodium 133, potassium 4.2, chloride 95, carbon dioxide 30, BUN 14, creatinine 0.96, glucose 667. CRP 8.76. Urinalysis shows + 2 protein, +1 blood, positive nitrites, trace leukocyte esterase, 2+ wbc's, 2+ rbc's, presence of squamous epithelial cells, and 3+ glucose. EKG personally reviewed shows sinus bradycardia with a rate of 58 and possible left ventricular hypertrophy. Left foot x-ray shows postsurgical changes. No appreciable erosion or periosteal reaction. ASSESSMENT AND PLAN: Ms. Mcgregor is a 52-year-old female with a past medical history of diabetes mellitus type 2, hypertension, chronic obstructive pulmonary disease, peripheral neuropathy, anxiety and depression, who presented to the emergency room today with complaints of elevated blood sugars for 2 days and a worsening foot ulcer. She was found to have hyperglycemia and a urinary tract infection. The patient will be admitted observation for: 1. Hyperglycemia. Her anion gap is normal and she does not appear toxic. There is no evidence for acute an DKA process at this time. The patient does not appear to be well managed at home as her A1c is 14%, so it is unclear how often she is actually taking her insulin or checking her blood sugars. I will restart her on glargine 80 units subcu b.i.d. and I will add a lispro sliding scale. I will place her on fingersticks q.4 in order to more closely monitor her blood sugar. I will hold her Januvia at this time. Labs will be repeated in the morning. 2. Urinary tract infection. Based on the urinalysis in the emergency room, it appears as though the patient has a urinary tract infection. She did receive 1 dose of ceftriaxone 1 g in the emergency room. I will continue this daily. 3. Left foot ulcer. The ulcer does not appear to be actively infected at this time, but I will continue her on her Bactrim which she was taking as an outpatient. Because of the repeated infections in that foot and the presence of hardware, there is always a concern for osteomyelitis. I have ordered an MRI to further evaluate. I have also ordered a Wound consult. I will continue her home hydrocodone/acetaminophen for pain management. 4. Hypertension. The patient has been hypertensive in the emergency room. I will continue her lisinopril and we will continue to monitor her blood pressure to determine if this needs to be increased or if another agent should be added. 5. Chronic obstructive pulmonary disease. The patient is not in an acute exacerbation at this time. She can continue to use 2.5 L nasal cannula at h.s. and p.r.n. She does not appear to take any medications at home to treat her chronic obstructive pulmonary disease. I will add albuterol nebs p.r.n. 6. Peripheral neuropathy. The patient appears to be at her baseline sensation. I will continue her gabapentin and Lyrica. The patient has been counseled on the importance of not ambulating barefoot because of the decrease in sensation and the risk for further injury. 7. Anxiety and depression. The patient can continue her amitriptyline and venlafaxine while she is here. 8. Fluids, electrolytes, and nutrition: I will order 1 bag of normal saline as the patient appears to be slightly dry. I will place her on a consistent carb diet. 9. Code status: The patient will be a full code. 10. DVT prophylaxis: According to the DVT Risk Assessment, the patient scores a 3 making her high risk. I will place her on heparin subcu. TIME SPENT: Approximately 80 minutes were spent on this admission, greater than half of that spent with the patient obtaining my history, performing my physical examination, and reviewing the plan of care. The case has been reviewed with my attending, Dr. Palmer, who is in agreement with the plan of care. KANDIS ABRAMS NP ADDENDUM: DATE OF ADMISSION: 05/26/18 Originally, the dictation was provided by Kandis Abrams NP, and the addendum is as follows. Lesly Mcgregor is a 52-year-old female with history of diabetes that had been uncontrolled and, as per the patient, her sugars at baseline are in the 400s. The patient also tells me that she has not had her insulin increased for at least several months now. She presented with uncontrolled sugar levels with a glucose level of 667. She complains of worsening of right bottom of her foot diabetic foot ulcer. She is going to be admitted to the hospital as per Kandis Abrams's history and physical with which I agree. An MRI of the right foot is going to be obtained to rule out osteomyelitis. Her outpatient antibiotics are going to be continued with Bactrim. She is going to be placed on insulin Lantus and titrated up as needed. Insulin sliding scale is also going to be provided as well as nutritional education. PHYSICAL EXAMINATION: At the time of admission, blood pressure 137/75, heart rate of 53 and regular, respiratory rate 16, oxygen saturation 96% on room air, temperature 97.8. General: The patient is a very pleasant 52-year-old female who is in no acute distress. Alert, awake, and oriented x3. She is a rather poor historian. HEENT: Head atraumatic, normocephalic. Eyes: Pupils are equal, reactive to light and accommodation. Oropharynx clear. Mucosa moist. Neck: Supple. No JVD, no bruits bilaterally. Cardiovascular: Regular rate and rhythm. No murmur. Respiratory: Clear to auscultation bilaterally. Abdomen: Soft, nontender. Bowel sounds are present in all 4 quadrants. Extremities: There is no edema. +2 pulses bilaterally. There is no clubbing or cyanosis. Skin: On the bottom of the right foot at the base of her first toe, the patient has an ulceration/callus of approximately 3 cm in diameter covered with eschar with hypertrophic skin. There is no evidence of cellulitis of the area and the wound is not draining. Once again, it is covered with eschar. She had a couple of small ecchymotic areas on the bottom of her feet likely related to the patient walking barefoot at the [facility] 2 weeks ago as she stated. Once again, the patient is going to be admitted to the hospital for further evaluation of the foot ulcer as well as uncontrolled diabetes. XOCHITL PALMER MD [id number]/CPS #: [id number] Renée [id number]/CPS #: [id number] DEWEY
[2018-05-26] MEDS ORDERED: Pregabalin CAP(*) 25 MG PO SCH (21:00)
[2018-05-26] MEDS ORDERED: Amitriptyline TAB* 25 MG PO SCH (21:00)
--- NOTE | 2018-05-26 21:11 | HP ---
HISTORY AND PHYSICAL: ADDENDUM: DATE OF ADMISSION: 05/26/18 Originally, the dictation was provided by Kandis Abrams NP, and the addendum is as follows. Lesly Mcgregor is a 52-year-old female with history of diabetes that had been uncontrolled and as per the patient, her sugars at baseline are in the 400s. The patient also tells me that she has not had her insulin increased for at least several months now. She presented with uncontrolled sugar levels with a glucose level of 667. She complains of worsening of right bottom of her foot diabetic foot ulcer. She is going to be admitted to the hospital as per Kandis Abrams's history and physical with which I agree. An MRI of the right foot is going to be obtained to rule out osteomyelitis. Her outpatient antibiotics are going to be continued with Bactrim. She is going to be placed on insulin Lantus and titrated up as needed. Insulin sliding scale is also going to be provided as well as nutritional education. PHYSICAL EXAMINATION At the time of admission, blood pressure 137/75, heart rate of 53 and regular, respiratory rate 16, oxygen saturation 96% on room air, temperature 97.8. General: The patient is a very pleasant 52-year-old female who is in no acute distress. Alert, awake, and oriented x3. She is a rather poor historian. HEENT : Head atraumatic, normocephalic. Eyes: Pupils are equal, reactive to light and accommodation. Oropharynx clear. Mucosa moist. Neck: Supple. No JVD, no bruits bilaterally. Cardiovascular: Regular rate and rhythm. No murmur. Respiratory: Clear to auscultation bilaterally. Abdomen: Soft, nontender. Bowel sounds are present in all 4 quadrants. Extremities: There is no edema. +2 pulses bilaterally. There is no clubbing or cyanosis. Skin: On the bottom of the right foot at the base of her first toe, the patient has an ulceration/ callus of approximately 3 cm in diameter covered with eschar with hypertrophic skin. There is no evidence of cellulitis of the area and the wound is not draining. Once again, it is covered with eschar. She had a couple of small ecchymotic areas on the bottom of her feet likely related to the patient walking barefoot at the [facility] 2 weeks ago as she stated. Once again, the patient is going to be admitted to the hospital for further evaluation of the foot ulcer as well as uncontrolled diabetes. [id number]/[facility] #: [id number] MTDD
[2018-05-26] MEDS ORDERED: Insulin GLARGINE(*) 1 UNITS UNIT SUBCUT ONE (21:20)
[2018-05-27] MEDS: Insulin LISPRO* 1 UNITS UNIT SUBCUT SCH ×6 (00:58→20:30)
[2018-05-27] MEDS ORDERED: Naloxone* 0.4 MG/ML 1 ML VIAL ONE (03:32)
[2018-05-27] MEDS ORDERED: Midazolam* 1 MG/ML 5 ML VIAL (5 MG) IV ONE (03:45)
[2018-05-27] MEDS ORDERED: fentaNYL* 50 MCG/ML 2 ML VIAL (100 MCG VIAL) IV ONE (03:46)
[2018-05-27] MEDS ORDERED: Succinylcholine* 20 MG/ML 10 ML VIAL ONE (03:50)
[2018-05-27] MEDS ORDERED: Norepinephrine 16MCG/ML IVPRE* 4,000 MCG/250 ML BAG IV SCH (04:00)
[2018-05-27] MEDS ORDERED: Midazolam* 1 MG/ML 10 ML VIAL (10 MG) IV ONE (04:00)
[2018-05-27] MEDS ORDERED: fentaNYL PCA* 20 ML PCA SCH (04:00)
[2018-05-27] MEDS ORDERED: NS 0.9% 100 ML* 100 ML ONE (04:08)
--- NOTE | 2018-05-27 04:16 | PN ---
Progress Note - Progress Note Date of Service: 05/27/18 Note: Nursing called Beth Victoria NP reporting profoundly decreased mental status, bradycardia in the 40s, & hypotensive w/ systolic in the 80s. He & I arrived MATTHEW to find Mrs Mcgregor with a GCS of 3, unresponsive to deep pain, unresponsive to 0.4mg IV naloxone, a blood sugar in the 180s, and loss of her occulocephalic reflex. Last sedating medication per MAR was hydrocodone APAP 5/325 at 22:47 and gabapentin 600mg at 2252. She had a strong albeit slow pulse, spontaneous respiratory rate in the low teens, but no gag reflex. She was emergently transferred to ICU and successful rapid sequence intubation performed by Beth Victoria NP under my direct supervision. See his procedure note for details. After pCXR was reviewed ET was withdrawn 1.5cm & OG confirmed in good position. She was then taken for STAT highest priority CT brain WO & CTA head/neck for concern of ICH/CVA. ECG: sinus bradycardia, non-specific diffuse ST-T flattening CT brain WO: negative CTA head/neck: negative labs: unremarkable assessment: plan coma of unknown origin : dopamine GTT for bradycardia/hypotension : fentanyl GTT & midazolam GTT for sedation given hypotension : check EEG & ECHO in AM : add on TSH, prolactin pending : Abdulkadir Galarza MD colorectal surgeon on-call apprised Critical Care time: 130min with ~80 spent at the bedside continually monitoring and actively managing patient's acute medical crisis
[2018-05-27] MEDS ORDERED: fentaNYL* 50 MCG/ML 2 ML VIAL (100 MCG VIAL) ONE (04:17)
[2018-05-27] MEDS ORDERED: Midazolam* 1 MG/ML 10 ML VIAL (10 MG) ONE (04:17)
[2018-05-27 04:18] LABS: ABS Basophils 0 10^3/ul (0-0.2); ABS Eosinophils 0.3 10^3/ul (0-0.6); ABS Monocytes 0.4 10^3/ul (0-0.8); ABS Neutrophils 3.2 10^3/ul (1.5-7.7); ABS Nucleated RBC 0 10^3/ul; Eosinophil % 4.8 % (0-6); Hematocrit 33 % (35-47); Hemoglobin 10.9 g/dl (12.0-16.0); Lymphocyte % 33.9 % (25-47); Mean Corpuscular HGB Conc 33 g/dl (31-36); Mean Corpuscular Hemoglobin 27 pg (27-31); Mean Corpuscular Volume 83 fL (80-97); Mean Platelet Volume 8.1 um3 (7.4-10.4); Nucleated Red Blood Cells % 0.1; Platelet Count 209 10^3/ul (150-450); Red Cell Distribution Width 15 % (10.5-15); White Blood Count 5.9 10^3/ul (3.5-10.8)
[2018-05-27] MEDS ORDERED: Atropine SYRINGE* 0.1 MG/ML 10 ML SYRINGE (1 MG) ONE (04:24)
[2018-05-27 04:33] LABS: EGFR Non-African American 49.5 (>60)
--- NOTE | 2018-05-27 04:39 | RAD ---
EXAM: CT Head Without Intravenous Contrast CLINICAL HISTORY: 52 years old, female; Signs and symptoms; Altered mental status/memory loss; Additional info: AMS, hypotension TECHNIQUE: Axial computed tomography images of the head/brain without intravenous contrast. All CT scans at this facility use at least one of these dose optimization techniques: automated exposure control; mA and/or kV adjustment per patient size (includes targeted exams where dose is matched to clinical indication); or iterative reconstruction. COMPARISON: BRAIN WO CT BRAIN WO 05/14/2015 10:48 PM FINDINGS: Brain: No acute intracranial hemorrhage. No acute infarct. No significant white matter disease. Midline shift: No midline shift. Ventricles: Unremarkable. No ventriculomegaly. Bones/joints: Unremarkable. No acute fracture. Soft tissues: Unremarkable. Sinuses: Sinus mucosal opacification. Mastoid air cells: Unremarkable as visualized. No mastoid effusion. IMPRESSION: No acute intracranial hemorrhage. No acute interval changes in comparison to the prior study.
[2018-05-27] MEDS ORDERED: Iodixanol 320 (CONTRAST) 100 ML SDV IV ONE (04:48)
[2018-05-27] MEDS ORDERED: Iodixanol* (CONTRAST) 320 MG/ML 100 ML SDV IV ONE (04:55)
[2018-05-27] MEDS ORDERED: DOPamine 800 MG/250 ML IVPREM* 800 MG/250 ML ML CENTR SCH (05:00)
[2018-05-27] MEDS ORDERED: Midazolam IV for DRIP* 100 MG in NS 0.9% 100 ML* 80 ML IV SCH (05:00)
[2018-05-27 05:12] LABS: INR 0.79 (0.77-1.02)
--- NOTE | 2018-05-27 05:21 | RAD ---
EXAM: CT Angiography Head With Intravenous Contrast CLINICAL HISTORY: 52 years old, female; Signs and symptoms; Other: Tia/cva work up TECHNIQUE: Axial computed tomographic angiography images of the head with intravenous contrast using CT angiography protocol. All CT scans at this facility use at least one of these dose optimization techniques: automated exposure control; mA and/or kV adjustment per patient size (includes targeted exams where dose is matched to clinical indication); or iterative reconstruction. MIP reconstructed images were created and reviewed. Sagittal reformatted images were created and reviewed. CONTRAST: 80 mL of VISIPAQUE 320 administered intravenously. COMPARISON: No relevant prior studies available. FINDINGS: Right internal carotid artery: No acute findings. Intracranial segment is patent with no significant stenosis. No aneurysm. Right anterior cerebral artery: Unremarkable. No occlusion or significant stenosis. No aneurysm. Right middle cerebral artery: Unremarkable. No occlusion or significant stenosis. No aneurysm. Right posterior cerebral artery: origin of the right posterior cerebral artery. No occlusion or significant stenosis. No aneurysm. Right vertebral artery: Unremarkable as visualized. Left internal carotid artery: No acute findings. Intracranial segment is patent with no significant stenosis. No aneurysm. Left anterior cerebral artery: Unremarkable. No occlusion or significant stenosis. No aneurysm. Left middle cerebral artery: Unremarkable. No occlusion or significant stenosis. No aneurysm. Left posterior cerebral artery: Unremarkable. No occlusion or significant stenosis. No aneurysm. Left vertebral artery: Left vertebral artery is dominant. Basilar artery: Unremarkable. No occlusion or significant stenosis. No aneurysm. IMPRESSION: No hemodynamically significant stenosis or large vessel occlusion. EXAM: CT Angiography Neck With Intravenous Contrast EXAM DATE/TIME: 05/27/2018 4:38 AM CLINICAL HISTORY: 52 years old, female; Signs and symptoms; Other: Tia/cva work up TECHNIQUE: Axial computed tomographic angiography images of the neck with intravenous contrast using CT angiography protocol. All CT scans at this facility use at least one of these dose optimization techniques: automated exposure control; mA and/or kV adjustment per patient size (includes targeted exams where dose is matched to clinical indication); or iterative reconstruction. MIP reconstructed images were created and reviewed. Sagittal reformatted images were created and reviewed. CONTRAST: 80 mL of VISIPAQUE 320 administered intravenously. 80 mL of VISIPAQUE 320 administered intravenously. COMPARISON: BRAIN WO CT BRAIN WO 05/27/2018 4:33 AM FINDINGS: VASCULATURE: Right common carotid artery: Unremarkable. No significant stenosis. No dissection or occlusion. Right internal carotid artery: Unremarkable. Extracranial segment is patent with no significant stenosis. No dissection or occlusion. Right external carotid artery: Unremarkable. No occlusion. Right vertebral artery: Poor evaluation of the proximal right vertebral artery secondary to adjacent venous contrast. Visualized portions are without significant stenosis. Left common carotid artery: Unremarkable. No significant stenosis. No dissection or occlusion. Left internal carotid artery: Unremarkable. Extracranial segment is patent with no significant stenosis. No dissection or occlusion. Left external carotid artery: Unremarkable. No occlusion. Left vertebral artery: Left vertebral artery is dominant. No significant stenosis. No dissection or occlusion. NECK: Bones/joints: There are degenerative changes involving the spine. No acute fracture. No dislocation. Soft tissues: Unremarkable as visualized. No mass. Tubes, lines and devices: Endotracheal tube terminates at the billy directed towards the right mainstem bronchus. Esophagogastric tube is present. CAROTID STENOSIS REFERENCE USING NASCET CRITERIA: % ICA stenosis = (1 - narrowest ICA diameter/diameter of distal cervical ICA) x 100. Mild - <50% stenosis. Moderate - 50-69% stenosis. Severe - 70-94% stenosis. Near occlusion - 95-99% stenosis. Occluded - 100% stenosis. IMPRESSION: No evidence of hemodynamically significant stenosis. Endotracheal tube terminates at the billy directed towards the right mainstem bronchus. Recommend retracting 3 cm.
[2018-05-27] MEDS: Heparin VIAL(*) 5000 UNITS/ML VIAL (FIVE THOUSAND) SUBCUT SCH ×3 (07:16→22:30)
--- NOTE | 2018-05-27 08:04 | RAD ---
HISTORY: ET/OG placement COMPARISONS: October 27, 2016 VIEWS: 1: frontal portable view of the chest at 4:05 AM FINDINGS: LINES AND TUBES: An endotracheal tube is noted with the tip overlying the trachea between the clavicles and the billy. A gastric tube is noted, with the tip in the left upper quadrant in a prepyloric position.. CARDIOMEDIASTINAL SILHOUETTE: The cardiomediastinal silhouette is normal for portable technique. PLEURA: The costophrenic angles are sharp. No pleural abnormalities are noted. LUNG PARENCHYMA: The lungs are clear. ABDOMEN: The upper abdomen is clear. There is no subphrenic gas. BONES AND SOFT TISSUES: No bone or soft tissue abnormalities are noted. IMPRESSION: LINES AND TUBES ABOVE. NO ACTIVE CARDIOPULMONARY DISEASE.
--- NOTE | 2018-05-27 08:40 | PN ---
Date of Service: 05/27/18 Critical Care Services: 52F with htn, hld, dm, anxiety, depression, copd on home o2, neuropathy initially admitted with diabetic foot ulcer and then became unresponsive overnight requiring intubation for airway protection. She also became hypotensive and bradycardic and was placed on peripheral dopamine. 05/27: TTE done this am and is pending. EEG ordered. CT head negative. Lab work unremarkable except for elevated prolactin level. Vital Signs: Temp Pulse Resp BP SpO2 FiO2 96.4 F 80 16 121/67 98 45 05/27/18 08:10 05/27/18 08:10 05/27/18 07:58 05/27/18 08:10 05/27/18 08:10 05/27 05:40 Physical Exam: Gen - intubated and sedated HEENT - ncat, pupils 3mm, not reactive Neck - no jvd CV - s1/s2, no murmur Pulm - cta, no wheeze Abd - soft, nt Ext - no edema, left foot first digit ulcer with eschar Neuro - unresponsive Fluid Balance (Past 24 Hours): I= O= Net Intake & Output 05/25/18 05/26/18 05/27/18 05/28/18 06:59 06:59 06:59 06:59 Intake Total 2104.8 Output Total 100 25 Balance 2003.8 -25 Weight 76.4 kg Intake: IV Fluids 2070 NS (0.9%) 20 Medicated IV 30.8 CC - Dopamine 30.8 IV Narcotic Infusion 4 Versed 4 Oral 0 Output: Rodgers 100 25 Other: Estimated Stool Amount Medium Labs: Laboratory Results - last 24 hr 05/26/18 05/26/18 05/26/18 10:04 10:29 10:29 WBC 5.8 RBC 4.41 Hgb 12.0 Hct 37 MCV 83 MCH 27 MCHC 33 RDW 15 Plt Count 225 MPV 8.3 Neut % (Auto) 73.7 Lymph % (Auto) 19.0 L [place] % (Auto) 4.4 Eos % (Auto) 2.2 Baso % (Auto) 0.7 Absolute Neuts (auto) 4.2 Absolute Lymphs (auto) 1.1 Absolute Monos (auto) 0.3 Absolute Eos (auto) 0.1 Absolute Basos (auto) 0 Absolute Nucleated RBC 0 Nucleated RBC % 0.3 INR (Anticoag Therapy) APTT Patient Temperature ABG pH ABG pH (Temp Correct) ABG pCO2 ABG pCO2 (Temp Corrct ABG pO2 ABG pO2 (Temp Correct ABG HCO3 ABG O2 Saturation ABG Base Excess Respiration Rate O2 Delivery Device Ventilator Type Vent Mode FiO2 Inspiratory Time PEEP Pressure Support Pressure Control EPAP IPAP BiPAP Sodium 133 L Potassium 4.2 Chloride 95 L Carbon Dioxide 30 Anion Gap 8 BUN 14 Creatinine 0.96 H Est GFR ( Amer) 74.4 Est GFR (Non-Af Amer) 61.5 BUN/Creatinine Ratio 14.6 Glucose 667 H* POC Glucose (mg/dL) > 444 H* Lactic Acid Calcium 9.2 Total Bilirubin 0.80 AST 12 L ALT 11 Alkaline Phosphatase 121 H Ammonia Lactate Dehydrogenase Troponin I C-Reactive Protein 8.76 H Total Protein 6.7 Albumin 3.6 Globulin 3.1 Albumin/Globulin Ratio 1.2 Procalcitonin TSH Prolactin Urine Color Urine Appearance Urine pH Ur Specific [place] Urine Protein Urine Ketones Urine Blood Urine Nitrate Urine Bilirubin Urine Urobilinogen Ur Leukocyte Esterase Urine WBC (Auto) Urine RBC (Auto) Ur Squamous Epith Cells Urine Bacteria Urine Glucose Blood Type Antibody Screen 05/26/18 05/26/18 05/26/18 11:37 16:15 20:18 WBC RBC Hgb Hct MCV MCH MCHC RDW Plt Count MPV Neut % (Auto) Lymph % (Auto) [place] % (Auto) Eos % (Auto) Baso % (Auto) Absolute Neuts (auto) Absolute Lymphs (auto) Absolute Monos (auto) Absolute Eos (auto) Absolute Basos (auto) Absolute Nucleated RBC Nucleated RBC % INR (Anticoag Therapy) APTT Patient Temperature ABG pH ABG pH (Temp Correct) ABG pCO2 ABG pCO2 (Temp Corrct ABG pO2 ABG pO2 (Temp Correct ABG HCO3 ABG O2 Saturation ABG Base Excess Respiration Rate O2 Delivery Device Ventilator Type Vent Mode FiO2 Inspiratory Time PEEP Pressure Support Pressure Control EPAP IPAP BiPAP Sodium Potassium Chloride Carbon Dioxide Anion Gap BUN Creatinine Est GFR ( Amer) Est GFR (Non-Af Amer) BUN/Creatinine Ratio Glucose POC Glucose (mg/dL) 336 H 105 H Lactic Acid Calcium Total Bilirubin AST ALT Alkaline Phosphatase Ammonia Lactate Dehydrogenase Troponin I C-Reactive Protein Total Protein Albumin Globulin Albumin/Globulin Ratio Procalcitonin TSH Prolactin Urine Color Yellow Urine Appearance Cloudy Urine pH 7.0 Ur Specific [place] 1.025 Urine Protein 2+(100 mg/dl) A Urine Ketones Negative Urine Blood 1+ A Urine Nitrate Positive A Urine Bilirubin Negative Urine Urobilinogen Negative Ur Leukocyte Esterase Trace A Urine WBC (Auto) 2+(11-20/hpf) A Urine RBC (Auto) 2+(6-10/hpf) A Ur Squamous Epith Cells Present A Urine Bacteria Absent Urine Glucose 3+(>=500 mg/dl) A Blood Type Antibody Screen 05/26/18 05/27/18 05/27/18 20:22 00:31 03:27 WBC RBC Hgb Hct MCV MCH MCHC RDW Plt Count MPV Neut % (Auto) Lymph % (Auto) [place] % (Auto) Eos % (Auto) Baso % (Auto) Absolute Neuts (auto) Absolute Lymphs (auto) Absolute Monos (auto) Absolute Eos (auto) Absolute Basos (auto) Absolute Nucleated RBC Nucleated RBC % INR (Anticoag Therapy) APTT Patient Temperature ABG pH ABG pH (Temp Correct) ABG pCO2 ABG pCO2 (Temp Corrct ABG pO2 ABG pO2 (Temp Correct ABG HCO3 ABG O2 Saturation ABG Base Excess Respiration Rate O2 Delivery Device Ventilator Type Vent Mode FiO2 Inspiratory Time PEEP Pressure Support Pressure Control EPAP IPAP BiPAP Sodium Potassium Chloride Carbon Dioxide Anion Gap BUN Creatinine Est GFR ( Amer) Est GFR (Non-Af Amer) BUN/Creatinine Ratio Glucose POC Glucose (mg/dL) 170 H 202 H 186 H Lactic Acid Calcium Total Bilirubin AST ALT Alkaline Phosphatase Ammonia Lactate Dehydrogenase Troponin I C-Reactive Protein Total Protein Albumin Globulin Albumin/Globulin Ratio Procalcitonin TSH Prolactin Urine Color Urine Appearance Urine pH Ur Specific [place] Urine Protein Urine Ketones Urine Blood Urine Nitrate Urine Bilirubin Urine Urobilinogen Ur Leukocyte Esterase Urine WBC (Auto) Urine RBC (Auto) Ur Squamous Epith Cells Urine Bacteria Urine Glucose Blood Type Antibody Screen 05/27/18 05/27/18 05/27/18 03:49 03:54 04:00 WBC 5.9 RBC 4.00 Hgb 10.9 L Hct 33 L MCV 83 MCH 27 MCHC 33 RDW 15 Plt Count 209 MPV 8.1 Neut % (Auto) 54.0 Lymph % (Auto) 33.9 [place] % (Auto) 7.0 Eos % (Auto) 4.8 Baso % (Auto) 0.3 Absolute Neuts (auto) 3.2 Absolute Lymphs (auto) 2.0 Absolute Monos (auto) 0.4 Absolute Eos (auto) 0.3 Absolute Basos (auto) 0 Absolute Nucleated RBC 0 Nucleated RBC % 0.1 INR (Anticoag Therapy) APTT Patient Temperature ABG pH ABG pH (Temp Correct) ABG pCO2 ABG pCO2 (Temp Corrct ABG pO2 ABG pO2 (Temp Correct ABG HCO3 ABG O2 Saturation ABG Base Excess Respiration Rate O2 Delivery Device Ventilator Type Vent Mode FiO2 Inspiratory Time PEEP Pressure Support Pressure Control EPAP IPAP BiPAP Sodium Potassium Chloride Carbon Dioxide Anion Gap BUN Creatinine Est GFR ( Amer) Est GFR (Non-Af Amer) BUN/Creatinine Ratio Glucose POC Glucose (mg/dL) 171 H 183 H Lactic Acid Calcium Total Bilirubin AST ALT Alkaline Phosphatase Ammonia Lactate Dehydrogenase Troponin I C-Reactive Protein Total Protein Albumin Globulin Albumin/Globulin Ratio Procalcitonin TSH Prolactin Urine Color Urine Appearance Urine pH Ur Specific [place] Urine Protein Urine Ketones Urine Blood Urine Nitrate Urine Bilirubin Urine Urobilinogen Ur Leukocyte Esterase Urine WBC (Auto) Urine RBC (Auto) Ur Squamous Epith Cells Urine Bacteria Urine Glucose Blood Type Antibody Screen 05/27/18 05/27/18 05/27/18 04:00 04:00 04:00 WBC RBC Hgb Hct MCV MCH MCHC RDW Plt Count MPV Neut % (Auto) Lymph % (Auto) [place] % (Auto) Eos % (Auto) Baso % (Auto) Absolute Neuts (auto) Absolute Lymphs (auto) Absolute Monos (auto) Absolute Eos (auto) Absolute Basos (auto) Absolute Nucleated RBC Nucleated RBC % INR (Anticoag Therapy) 0.79 APTT 27.1 Patient Temperature ABG pH ABG pH (Temp Correct) ABG pCO2 ABG pCO2 (Temp Corrct ABG pO2 ABG pO2 (Temp Correct ABG HCO3 ABG O2 Saturation ABG Base Excess Respiration Rate O2 Delivery Device Ventilator Type Vent Mode FiO2 Inspiratory Time PEEP Pressure Support Pressure Control EPAP IPAP BiPAP Sodium 136 Potassium 6.3 H* D Chloride 105 Carbon Dioxide 29 Anion Gap 2 BUN 13 Creatinine 1.16 H Est GFR ( Amer) 59.8 Est GFR (Non-Af Amer) 49.5 BUN/Creatinine Ratio 11.2 Glucose 167 H POC Glucose (mg/dL) Lactic Acid 1.9 Calcium 8.0 L Total Bilirubin 0.40 AST 12 L ALT 9 Alkaline Phosphatase 81 Ammonia Lactate Dehydrogenase Troponin I 0.00 C-Reactive Protein Total Protein 5.5 L Albumin 3.0 L Globulin 2.5 Albumin/Globulin Ratio 1.2 Procalcitonin TSH Prolactin Urine Color Urine Appearance Urine pH Ur Specific [place] Urine Protein Urine Ketones Urine Blood Urine Nitrate Urine Bilirubin Urine Urobilinogen Ur Leukocyte Esterase Urine WBC (Auto) Urine RBC (Auto) Ur Squamous Epith Cells Urine Bacteria Urine Glucose Blood Type Antibody Screen 05/27/18 05/27/18 05/27/18 04:58 04:58 04:58 WBC RBC Hgb Hct MCV MCH MCHC RDW Plt Count MPV Neut % (Auto) Lymph % (Auto) [place] % (Auto) Eos % (Auto) Baso % (Auto) Absolute Neuts (auto) Absolute Lymphs (auto) Absolute Monos (auto) Absolute Eos (auto) Absolute Basos (auto) Absolute Nucleated RBC Nucleated RBC % INR (Anticoag Therapy) APTT Patient Temperature ABG pH ABG pH (Temp Correct) ABG pCO2 ABG pCO2 (Temp Corrct ABG pO2 ABG pO2 (Temp Correct ABG HCO3 ABG O2 Saturation ABG Base Excess Respiration Rate O2 Delivery Device Ventilator Type Vent Mode FiO2 Inspiratory Time PEEP Pressure Support Pressure Control EPAP IPAP BiPAP Sodium Potassium 3.2 L D Chloride Carbon Dioxide Anion Gap BUN Creatinine Est GFR ( Amer) Est GFR (Non-Af Amer) BUN/Creatinine Ratio Glucose POC Glucose (mg/dL) Lactic Acid Calcium Total Bilirubin AST ALT Alkaline Phosphatase Ammonia 28 Lactate Dehydrogenase Troponin I C-Reactive Protein Total Protein Albumin Globulin Albumin/Globulin Ratio Procalcitonin TSH Prolactin Urine Color Urine Appearance Urine pH Ur Specific [place] Urine Protein Urine Ketones Urine Blood Urine Nitrate Urine Bilirubin Urine Urobilinogen Ur Leukocyte Esterase Urine WBC (Auto) Urine RBC (Auto) Ur Squamous Epith Cells Urine Bacteria Urine Glucose Blood Type O Positive Antibody Screen Negative 05/27/18 05/27/18 05/27/18 05:09 05:24 05:24 WBC RBC Hgb Hct MCV MCH MCHC RDW Plt Count MPV Neut % (Auto) Lymph % (Auto) [place] % (Auto) Eos % (Auto) Baso % (Auto) Absolute Neuts (auto) Absolute Lymphs (auto) Absolute Monos (auto) Absolute Eos (auto) Absolute Basos (auto) Absolute Nucleated RBC Nucleated RBC % INR (Anticoag Therapy) APTT Patient Temperature Not Reportable ABG pH 7.49 H ABG pH (Temp Correct) Not Reportable ABG pCO2 29 L ABG pCO2 (Temp Corrct Not Reportable ABG pO2 171 H ABG pO2 (Temp Correct Not Reportable ABG HCO3 24.4 ABG O2 Saturation 100.0 H ABG Base Excess -0.7 Respiration Rate 14 O2 Delivery Device ventilator Ventilator Type 500 Vent Mode cmv FiO2 50 Inspiratory Time 1.0 PEEP 5 Pressure Support Not Reportable Pressure Control Not Reportable EPAP Not Reportable IPAP Not Reportable BiPAP Not Reportable Sodium Potassium Chloride Carbon Dioxide Anion Gap BUN Creatinine Est GFR ( Amer) Est GFR (Non-Af Amer) BUN/Creatinine Ratio Glucose POC Glucose (mg/dL) Lactic Acid Calcium Total Bilirubin AST ALT Alkaline Phosphatase Ammonia Lactate Dehydrogenase 160 Troponin I C-Reactive Protein Total Protein Albumin Globulin Albumin/Globulin Ratio Procalcitonin < 0.1 TSH 1.64 Prolactin 79.0 H Urine Color Urine Appearance Urine pH Ur Specific [place] Urine Protein Urine Ketones Urine Blood Urine Nitrate Urine Bilirubin Urine Urobilinogen Ur Leukocyte Esterase Urine WBC (Auto) Urine RBC (Auto) Ur Squamous Epith Cells Urine Bacteria Urine Glucose Blood Type Antibody Screen Studies: CTA Brain 05/27 IMPRESSION: No hemodynamically significant stenosis or large vessel occlusion. CT Head 05/27 IMPRESSION: No acute intracranial hemorrhage. No acute interval changes in comparison to the prior study. CXR 05/27 IMPRESSION: LINES AND TUBES ABOVE. NO ACTIVE CARDIOPULMONARY DISEASE Left Foot Xray 05/26 IMPRESSION: 1. POSTSURGICAL CHANGE. 2. NO APPRECIABLE EROSION OR PERIOSTEAL REACTION. 3. PLAIN FILM FINDINGS OF OSTEOMYELITIS ARE RELATIVELY LATE FINDINGS. IF THERE IS PERSISTENT CLINICAL CONCERN FOR OSTEOMYELITIS, RECOMMEND CORRELATION WITH FOLLOWUP IMAGING, THREE-PHASE BONE SCANNING, WHITE BLOOD CELL SCAN, AND/OR MRI OF THE AFFECTED REGION. Impression: 52F with htn, hld, dm, anxiety, depression, copd on home o2, neuropathy admitted with diabetic foot ulcer complicated by altered mental status, bradycardia and hypotension. Plan: Neuro - AMS, neuropathy - seizure? - prolactin 79 - CT and CTA head negative - eeg in progress - neurology consult called Dr. Chanel - EEG negative will send for MRI Brain and possible LP - holding venlafaxine as potential cause of seizure CV - hypotension, bradycardia - now on peripheral dopamine - if unable to wean will place central line - tte pending - will consider cardiolgy eval after tte results - holding home antihypertensives Pulm - respiratory failure - 2/2 ams - wean vent as tolerated ID - diabetic foot ulcer, UTI - foot ulcer does not appear infected - MRI of foot pending - c/w ceftriaxone for uti - f/u cultures - serial lactates - iv hydration GI - tube feeds Renal - josseline - monitor lytes - iv hydration Heme - monitor cbc Endo - DM - check fs, niss, lantus - a1c 14 - tsh normal Lines - piv, will place central line today, rodgers PPx - gi/dvt Full Code Critical Care Time: 70 mins
--- NOTE | 2018-05-27 08:42 | PRO ---
DATE OF PROCEDURE: 05/27/18 - ROOM #ICU-01 SERVICE: Critical Care Medicine. LOCATION OF PROCEDURE: ICU. PROCEDURE PERFORMED: Endotracheal intubation. SURGEON: Joaquina Coleman NP. MY ATTENDING PHYSICIAN: Dr. Danny Benson. CONSENT OBTAINED: No. Procedure performed emergently. Time-out held not indicated. INDICATIONS: Rapidly deteriorated mental status, Madison coma scale 3, hypotension and bradycardia. PROCEDURE IN DETAIL: The patient's oxygenation was maintained, and vitals were monitored. The patient was placed in the supine position. The patient was premedicated with 4 mg of Versed, 100 mcg of fentanyl. First attempt to pass the tube was attempted, however, could not pass the tube past the cords due to gag reflex. The patient was then given 100 mg of succinylcholine. GlideScope # 3 was inserted with the grade 1 view obtained. The 8.0 endotracheal tube was inserted to 24 at the lip. The patient tolerated the procedure well. There was good chest rise and breath sounds appreciated in bilateral lung garduno. There was good color change. End-tidal CO2 was 35. The patient tolerated the procedure well. JOAQUINA COLEMAN NP [id number]/[facility] #: [id number] MTDMonica
--- NOTE | 2018-05-27 08:53 | RAD ---
Indication: Ulcer/discoloration at the base of the LEFT great toe. Comparison: May 26, 2018 radiographs. Technique: DGITa 1.5 Kelly [id number] with GEM suite. Noncontrast MRI LEFT foot from the transverse tarsal joint distal. Report: Artifact from first metatarsal phalangeal joint hardware fusion. There is bone marrow edema involving the first distal phalanx greatest at the tuft without corresponding loss of normal T1 marrow hyperintensity. No fracture evident. Negative for dislocation. Soft tissue edema involving the subcutaneous tissue plane and intrinsic skeletal musculature without significant focality or evidence for a loculated soft tissue plane abscess collection. IMPRESSION: #. Bone marrow edema without corresponding loss of normal T1 marrow hyperintensity at the first distal phalanx is nonspecific. The differential primarily includes reactive edema secondary to adjacent soft tissue inflammation as well as early osteomyelitis. #. Soft tissue edema involving the subcutaneous tissue plane and intrinsic skeletal musculature without significant focality or evidence for a loculated soft tissue plane abscess collection.
[2018-05-27] MEDS ORDERED: Venlafaxine EXT RELEASE CAP* 75 MG PO SCH (09:00)
[2018-05-27] MEDS ORDERED: Lisinopril TAB* 10 MG PO SCH (09:00)
[2018-05-27] MEDS: Atorvastatin* 20 MG TAB PO SCH (09:03)
[2018-05-27] MEDS: Insulin GLARGINE(*) 1 UNITS UNIT SUBCUT SCH (09:03)
[2018-05-27] MEDS: Sulfamethox/Trimethoprim DS 800/160* TAB PO SCH (09:03)
--- NOTE | 2018-05-27 09:27 | ECHO ---
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 Currently sedated, intubated and mechanically ventilated. Technical Comments: The study is technically limited due to patient being intubated and on a ventilator. Completed at 0827. Left Ventricle: The left ventricular chamber size is decreased. There is a prominent septal knuckle. The estimated ejection fraction is greater than 65%. Normal left ventricular diastolic filling is observed. Left Atrium: The left atrial chamber size is normal. Right Ventricle: The right ventricular cavity size is normal.Borderline RVH at 5 mm The right ventricular global systolic function is normal. Right Atrium: The right atrial cavity size is normal. Aortic Valve: The aortic valve is trileaflet. There is no evidence of aortic valve thickening. There is no evidence of aortic regurgitation. There is no evidence of aortic stenosis. Mitral Valve: The mitral valve leaflets are mildly thickened. There is no evidence of mitral regurgitation. There is no evidence of mitral stenosis. Tricuspid Valve: The tricuspid valve leaflets are normal. There is trace tricuspid regurgitation. There is evidence of mild to moderate pulmonary hypertension. There is no tricuspid stenosis. Pulmonic Valve: The pulmonic valve appears normal. There is trace to mild pulmonic regurgitation. There is no pulmonic stenosis. Pericardium: A pericardial fat pad is visualized. Aorta: There is no dilatation of the ascending aorta. There is no dilatation of the aortic arch. There is mild dilatation of the aortic root. Pulmonary Artery: The main pulmonary artery appears normal. Venous: Unable to accurately comment on the size collapsibility of the IVC as the patient in known to be on mechanical ventilation. Summary: There was not any prior study for comparison. Conclusions Patient was intubated and on a Dopamine infusion during the study. The left ventricular chamber size is decreased. The estimated ejection fraction is greater than 65%. The right ventricular cavity size is normal. Borderline RVH at 5 mm. The right ventricular global systolic function is normal. There is trace tricuspid regurgitation. There is evidence of mild to moderate pulmonary hypertension. There is mild dilatation of the aortic root. Measurements Name Value Normal Range RVIDd (AP) 2D 3.2 cm (0.9 - 2.6) RVDdMajor (2D) 2.6 cm (2.2 - 4.4) RAd ISD 4CH 4.7 cm (3.4 - 4.9) RA (A4C)W 3.5 cm (2.9 - 4.6) IVSd (2D) 1.1 cm (0.6 - 1) LVPWd (2D) 1 cm (0.6 - 1) LVIDd (2D) 2.8 cm (3.6 - 5.4) LVIDs (2D) 1.8 cm - LV FS (2D) 34 % (25 - 45) Aortic Annulus 1.9 cm (1.4 - 2.6) Ao root diameter (2D) 3.6 cm (2.1 - 3.5) Ascending Ao 2.8 cm (2.1 - 3.4) Aortic arch 2.4 cm (1.8 - 3.4) Descending Ao 0.8 cm - LA dimension (AP) 2D 2.9 cm (2.3 - 3.8) LAd ISD 4CH 3.8 cm (2.9 - 5.3) LA ISD 4CH W 3.4 cm (2.5 - 4.5) Name Value Normal Range LA ESV SP 4CH (A/L) 24 ml - LA ESV SP 2CH (A/L) 32 ml - LA ESV BP (A/L) 29 ml - LA ESV BP (A/L) index 16.5 ml/m2 - LA ESV SP 4CH (MOD) 22 ml - LA ESV SP 2CH (MOD) 30 ml - Name Value Normal Range MV E-wave Vmax 0.9 m/sec - MV deceleration time 250 msec - MV A-wave Vmax 0.7 m/sec - MV E:A ratio 1.37 ratio - LV septal e' Vmax 0.06 m/sec - LV lateral e' Vmax 0.09 m/sec - LV E:e' septal ratio 15 ratio - LV E:e' lateral ratio 10 ratio - Name Value Normal Range AV Vmax 1.4 m/sec - AV VTI 23 cm - AV peak gradient 7.85 mmHg - AV mean gradient 3.58 mmHg - LVOT Vmax 1 m/sec - LVOT VTI 18 cm - LVOT peak gradient 3.72 mmHg - LVOT mean gradient 1.77 mmHg - Name Value Normal Range TR Vmax 3.1 m/sec - TR peak gradient 39 mmHg - RAP 8 mmHg - RVSP 47 mmHg - IVC diameter 1.7 cm - Name Value Normal Range PV Vmax 1 m/sec - PV peak gradient 4.03 mmHg -
--- NOTE | 2018-05-27 11:17 | OP ---
Operative Report - Blank - Operative Report Date of Operation: 05/27/18 Note: Central Venous Catheter (CVC, Central Line) Placement Date: 05/27/18 Time: 11:15 Indication: Hemodynamic monitoring/Intravenous access Attending: Michell Chinchilla time-out was completed verifying correct patient, procedure, site, positioning , and special equipment if applicable. The patient was placed in a dependent position appropriate for central line placement based on the vein to be cannulated. The patients left neck was prepped and draped in sterile fashion. 1 % Lidocaine was used to anesthetize the surrounding skin area. A triple lumen 7- Arabic catheter was introduced into the the internal jugular vein using the Seldinger technique and under ultrasound guidance. The catheter was threaded smoothly over the guide wire and appropriate blood return was obtained. Each lumen of the catheter was evacuated of air and flushed with sterile saline. The catheter was then sutured in place to the skin and a sterile dressing applied. Perfusion to the extremity distal to the point of catheter insertion was checked and found to be adequate. Estimated Blood Loss: none The patient tolerated the procedure well and there were no complications. CXR ordered to confirm placement.
[2018-05-27] MEDS: fentaNYL* 50 MCG/ML 2 ML VIAL (100 MCG VIAL) ONE ×2 (11:44→11:45)
[2018-05-27] MEDS: cefTRIAXone(*) 1 GM in NS 0.9% 50 ML* 50 ML IVPB SCH (11:59)
[2018-05-27 12:07] LABS: EGFR Non-African American 60.1 (>60)
--- NOTE | 2018-05-27 13:02 | RAD ---
HISTORY: central line placement COMPARISONS: May 27, 2018 at 4:08 AM VIEWS: 1: frontal portable view of the chest at 11:36 AM FINDINGS: LINES AND TUBES: An endotracheal tube is noted with the tip overlying the trachea between the clavicles and the billy. A gastric tube is noted, with the tip in the left upper quadrant in a prepyloric position.. A left internal jugular venous catheter is noted with the tip overlying the cavoatrial junction. CARDIOMEDIASTINAL SILHOUETTE: The cardiomediastinal silhouette is normal for portable technique. PLEURA: The costophrenic angles are sharp. No pleural abnormalities are noted. LUNG PARENCHYMA: The lungs are clear. ABDOMEN: The upper abdomen is clear. There is no subphrenic gas. Contrast is noted within the renal collecting system. BONES AND SOFT TISSUES: No bone or soft tissue abnormalities are noted. IMPRESSION: LINES AND TUBES ABOVE. NO ACTIVE CARDIOPULMONARY DISEASE.
[2018-05-27] MEDS: KCL 20 MEQ/100 ML IVPREMIX* 20 MEQ/100 ML BAG IV SCH ×3 (13:06→17:19)
[2018-05-27] MEDS: Chlorhexidine MOUTHWASH 0.12%* 15 ML UDC TOPICAL SCH ×3 (13:48→22:29)
[2018-05-27] MEDS: fentaNYL* 50 MCG/ML 2 ML VIAL (100 MCG VIAL) IV PRN ×2 (13:49→18:09)
[2018-05-27] MEDS: Famotidine SUSP* 40 MG/5 ML ORAL.SYRIN NG TUBE SCH ×2 (14:10→21:32)
[2018-05-27] MEDS: Potassium Chloride LIQUID* 20 MEQ PACKET PO SCH ×2 (14:21→17:19)
[2018-05-27] MEDS: Dextrose 50% Syringe 50 ML* 25 GM/50 ML SYRINGE IV PUSH PRN ×2 (17:00→20:40)
--- NOTE | 2018-05-27 19:53 | CONS ---
NEUROLOGY CONSULTATION REPORT: DATE OF CONSULT: 05/27/18 CONSULTING PHYSICIAN: Dr. Wilber Galarza. REASON FOR CONSULT: Unresponsive state. CHIEF COMPLAINT: The patient is intubated and unable to provide any medical history. HISTORY OF PRESENT ILLNESS: Lesly Mcgregor is a 52-year-old female with a past medical history of uncontrolled type 2 diabetes mellitus, hypertension, diabetic polyneuropathy, COPD, anxiety, depression, who presented to [facility] Emergency Department with complaints of increasing uncontrolled blood glucose.. Her blood glucose on arrival was 667. Her typical blood glucose runs around 400. Her last A1c obtained by her primary care doctor was 14 on 04/21/18. She reports generalized fatigue, polydipsia, and polyuria. She is being evaluated by her technical producer for an insulin pump. The patient had developed ulceration on the plantar surface of the left great toe. She was walking around bare footed at the [facility] a few days ago and was complaining of increased pain in that left foot. She was prescribed Bactrim and amoxicillin last Wednesday for presumed foot infection. She was scheduled to see a atm servicer, but she ended up coming to the hospital thus missing her appointment. The patient was admitted to the hospital for further evaluation and treatment of hyperglycemia on 05/26/18. On the night of the admission, the patient received the following medications: Bactrim at 2026, gabapentin 600 mg at 1702 and 2025, amitriptyline 25 mg at 2027 , Lyrica 75 mg at 2024, insulin glargine 40 units at 2247, and hydrocodone 5/ 325 at 2246. Early the following morning at approximately 3:15 a.m., the nurse went to assess the patient and she was found to be unresponsive to verbal stimuli and sternal rub. The patient's blood pressure was 60/40 manually, her heart rate was in the 40's, oxygen saturation was 99% on room air, and her blood glucose was 186. Naloxone 0.4 mg IV was administered, but the patient was still unresponsive. She was transferred to the ICU at 3:45 a.m. According to the provider that assessed the patient, Dr. Danny Benson, the patient did not have any pupillary or corneal reflexes. She did not have any ocular cephalic reflexes. She had a reported GCS of 3. A CT head and a CTA head and neck were ordered stat. There was no evidence of acute intracranial abnormalities, intracranial hemorrhage, or large vessel occlusion. Her basilar system was widely patent and open. She was started on fentanyl and Versed and intubated in the ICU. Eventually, the fentanyl and Versed were stopped this morning at approximately 5:52 a.m. I was consulted by Dr. Galarza to evaluate the patient for acute encephalopathy. I assessed the patient at 10:45 a.m. The patient was able to open her eyes and follow commands while intubated. She did nod yes and no appropriately. She was definitely better than how she was earlier on today. Review of systems was unobtainable due to the patient's intubation. PAST MEDICAL HISTORY: 1. Diabetes mellitus, type 2. 2. Hypertension. 3. COPD, on home oxygen 2.5 L at night and as needed. 4. Diabetic polyneuropathy. 5. Arthritis. 6. Anxiety. 7. Depression. PAST SURGICAL HISTORY: Kidney stone removal and left foot surgery. HOME MEDICATIONS: 1. Hydrocodone/acetaminophen 1 tablet by mouth every 6 hours as needed. 2. Januvia 100 mg by mouth daily. 3. Venlafaxine 225 mg by mouth daily. 4. Bactrim 800/160 one tablet by mouth twice daily. 5. Lyrica 75 mg by mouth twice daily. 6. Gabapentin 600 mg by mouth t.i.d. 7. Atorvastatin 20 mg by mouth daily. 8. Amoxicillin 875 mg by mouth twice daily. 9. Amitriptyline 25 mg by mouth at bedtime. 10. Hydroxyzine 25 mg 1 tablet 4 times a day. 11. Lisinopril 1 tablet p.o. daily. 12. Insulin glargine 80 units subcutaneously. ALLERGIES: LATEX and MICONAZOLE. FAMILY HISTORY: Unknown as the patient is adopted. SOCIAL HISTORY: She is a former smoker with 64-yftf-mlip history, but she quit in 2017, but does sneak in a cigarette when she is anxious. There is no reported alcohol use. The patient had a former history of substance abuse/used crack cocaine in 2012. She is currently disabled and lives with her and children. REVIEW OF SYSTEMS: A 14-point review of systems was unable to be obtained due to the patient's mental status. PHYSICAL EXAM: Vitals: Temperature of 97.3, pulse of 71, respiratory rate of 15, oxygen saturation of 100%, blood pressure of 102/64. General: Ill- appearing female, in no acute distress. She is intubated. Head is normocephalic without any obvious abnormalities. Eyes: Conjunctivae/corneas are clear. No scleral icterus. Neck is supple and symmetrical with no carotid bruit. No nuchal rigidity. Lungs are clear to auscultation bilaterally with nonlabored breathing. Cardiovascular: Regular rate and rhythm with normal S1, S2. Extremities: Normal range of motion with no hammertoes or high arches. Skin: There is a dry ulceration with eschar, a thick granulation tissue underneath the left great toe. Psych: Not applicable. Neurological Examination : The patient opens eyes to command. She is intubated. Sedation has been held since 5:52 this morning. Cranial Nerves: Pupils equal, round, and reactive to light and measuring 4 mm bilaterally, constricted to 3 mm bilaterally. Corneal reflexes are normally present. She grimaces to nasal stimulation bilaterally. She had positive gag and cough reflexes. Doll's sign was present on both sides. The patient does open eyes to command and nods yes or no to simple questions. Motor Examination: She is able to slightly elevate the hand and arms symmetrically to command as well as move her toes to command. She was able to lift her ankles off the bed bilaterally and symmetrically. Normal tone throughout. No spasticity. Reflexes: 2+ throughout in the biceps, triceps, brachioradials, and knees bilaterally, 0 at the ankles. Questionable mute response on the right with normal flexor response on the left, plantar responses. Sensation is intact to light touch in the both upper extremities. Coordination: Not applicable. Gait and Station: Not applicable. LABORATORY DATA: WBC 5.9, hemoglobin of 10.9, hematocrit of 33, and platelet function of 209. We do know that Accu-Chek was 106, within normal range. Sodium 136, potassium is 3.2, chloride 105, carbon dioxide 29, creatinine 1.16. . TSH of 1.64. Prolactin of 79. C-reactive protein 8.76. Ammonia 28. The patient had an MRI of the left foot that showed increased edema around the area of the ulceration concerning for early osteomyelitis. ASSESSMENT AND RECOMMENDATIONS: This is a complicated case. Ms. Lesly Mcgregor is a 52-year-old female, who has a history of uncontrolled diabetes mellitus, type 2, with an A1c level of 14, who presented to [facility] for hyperglycemia with blood glucose greater than 600. During the first night of admission, the patient was found to be unresponsive at approximately 3:00 a.m. on 05/27/18 and was transferred to the ICU where she was intubated. It is unclear what may have caused the episode of unresponsiveness. The patient seems to be slowly regaining consciousness and she was able to follow command while being intubated on my examination today. She has no lateralizing signs on examination. . She was never complaining of any headaches and has no evidence of nuchal rigidity on examination. CT head and CTA head and neck did not reveal any evidence of acute intracranial abnormalities or a large vessel occlusion. Her vertebrobasilar system is intact. The differential diagnosis is broad. I suspect she may have an underlying infection (e.g., UTI or osteomyelitis) causing her to be septic. It is unusual that she is afebrile and has a normal white count. Other differential diagnosis to consider would be seizures with autonomic dysfunction and postictal state. She is on medications that may lower the seizure threshold. Given that she has been on Bactrim for a few days, it may increase her risk for developing seizures especially in the combination with venlafaxine and amitriptyline. I do not suspect that she had a transient ischemic attack to the posterior circulation like the basilar artery given that her CTA is normal with no evidence of intracranial disease. Another differential diagnosis may include adrenal insufficiency given the autonomic dysfunction with bradycardia and hypotension. Cortisol level has not been checked. The suspicion for meningitis or intracranial vascular disease is extremely low since the patient has been afebrile, has no leukocytosis, never complained of any headaches, or nuchal rigidity prior to the episode of unresponsiveness, and has normal intracranial testing. Recommendation: Please discontinue Bactrim. I recommend continued neuro checks every 1 hour and supportive care. Hold off on obtaining an MRI or lumbar puncture for now unless the patient's mentation does not improve. Continue close monitoring of her glucose level, although her blood sugar was within normal range when the episode may have taken place. I do not think her blood sugar of 180 in a person that averages a blood sugar of 400 is low, although that can be also considered. Please obtain a transthoracic echo if not yet done so to rule out any cardiac thrombus formation or to also check the cardiac function given her hypotension. Hold off on AD therapy unless the patient has a witnessed clinical seizure. The EEG study was completed and I will be reviewing the results today. An elevated prolactin is a nonspecific finding. I do recommend repeating the level once the patient is stabilized. I will reexamine the patient later on today and discuss the case in detail with family. TIME SPENT: I spent a total of 60 critical care minutes, and greater than 50% was spent directly reviewing the medical chart, obtaining history, examining the patient, and discussing the treatment plan as discussed above. Given that she is regaining consciousness, I anticipate she will have a positive outcome and prognosis. We may have to add Bactrim on her allergies list given this presentation. Dr. Nneka Chen will be following the patient this weekend. [id number]/[facility] #: [id number] MTDD
--- NOTE | 2018-05-27 21:41 | EEG ---
ELECTROENCEPHALOGRAPHY: DATE OF STUDY: 05/27/18 DATE READ: 05/27/18 EEG ORDERED BY: Danny Benson MD HISTORY: Ms. Mcgregor is a 52-year-old female with hyperglycemia who had an episode of unresponsiveness. This EEG was obtained to evaluate for epileptiform abnormalities. MEDICATIONS: 1. Versed. 2. Humalog. 3. Lipitor. 4. Bactrim. 5. Rocephin. 6. Heparin. 7. Tylenol. 8. Ventolin. 9. Zofran. 10. Dopamine. 11. Fentanyl. 12. Levophed. TIME OF RECORDIN:45 a.m. to 9:08 a.m. CLINICAL STATE: Encephalopathy with some captured sleep state. REPORT: The background had discernible organization and defined anterior- posterior voltage and frequency gradients. There was a discernible posterior dominant rhythm of 7 Hz. The majority of study though showed a background consisting of mixed frequency slowing in the delta and theta range. The frequency was between 4-7 Hz with intermittent mixed diffuse 2-3 Hz delta slowing. There was emergence of some faster frequency with verbal and tactile stimulation. There were some areas where attenuation of the posterior dominant rhythm was seen with irregular symmetrically seen spindles throughout the recording. These findings suggest stage 2 sleep. Hyperventilation and photic stimulations were not performed. Throughout the recording, there were no epileptiform discharges or electrographic seizures. CLINICAL IMPRESSION: This is an abnormal mostly drowsy and sleep EEG due to diffuse background slowing with some sleep spindles suggestive of stage 2 sleep. There were no epileptiform abnormalities. These findings are suggestive of a nonspecific mild-moderate diffuse encephalopathy. Clinical correlation is recommended. [id number]/[facility] #: [id number] [facility]
[2018-05-28] MEDS: Insulin LISPRO* 1 UNITS UNIT SUBCUT SCH ×6 (00:05→21:00)
[2018-05-28] MEDS: fentaNYL* 50 MCG/ML 2 ML VIAL (100 MCG VIAL) IV PRN (00:57)
[2018-05-28] MEDS: Dextrose 50% Syringe 50 ML* 25 GM/50 ML SYRINGE IV PUSH PRN ×2 (02:31→07:58)
[2018-05-28] MEDS: Chlorhexidine MOUTHWASH 0.12%* 15 ML UDC TOPICAL SCH ×4 (02:50→13:23)
[2018-05-28 06:02] LABS: ABS Basophils 0 10^3/ul (0-0.2); ABS Eosinophils 0.2 10^3/ul (0-0.6); ABS Lymphocytes 1.8 10^3/ul (1.0-4.8); ABS Monocytes 0.6 10^3/ul (0-0.8); ABS Neutrophils 4.3 10^3/ul (1.5-7.7); ABS Nucleated RBC 0 10^3/ul; Eosinophil % 2.2 % (0-6); Hematocrit 29 % (35-47); Hemoglobin 9.7 g/dl (12.0-16.0); Lymphocyte % 26.9 % (25-47); Mean Corpuscular HGB Conc 33 g/dl (31-36); Mean Corpuscular Hemoglobin 27 pg (27-31); Mean Corpuscular Volume 82 fL (80-97); Mean Platelet Volume 7.9 um3 (7.4-10.4); Nucleated Red Blood Cells % 0; Platelet Count 190 10^3/ul (150-450); Red Blood Count 3.54 10^6/ul (4.00-5.40); Red Cell Distribution Width 15 % (10.5-15); White Blood Count 6.8 10^3/ul (3.5-10.8)
[2018-05-28] MEDS ORDERED: D5LR 1000 ML BAG* 1,000 ML IV SCH (06:05)
[2018-05-28] MEDS: Heparin VIAL(*) 5000 UNITS/ML VIAL (FIVE THOUSAND) SUBCUT SCH ×3 (06:23→21:01)
[2018-05-28 06:33] LABS: EGFR Non-African American 67.1 (>60)
[2018-05-28] MEDS ORDERED: Magnesium Sulfate 2 GM IV* 2 GM/50 ML BAG IVPB ONE (08:02)
--- NOTE | 2018-05-28 08:23 | PN ---
Date of Service: 05/28/18 Critical Care Services: 52F with htn, hld, dm, anxiety, depression, copd on home o2, neuropathy initially admitted with diabetic foot ulcer and then became unresponsive overnight requiring intubation for airway protection. She also became hypotensive and bradycardic and was placed on peripheral dopamine. 05/27: TTE done this am and is pending. EEG ordered. CT head negative. Lab work unremarkable except for elevated prolactin level. 05/28: Extubated yesterday afternoon. Remains lethargic but arousable and answers questions appropriately. Off levophed. Hypoglycemic. Lantus stopped. d5LR started. E. Coli in UCx. Vital Signs: Temp Pulse Resp BP SpO2 FiO2 98.1 F 60 18 105/58 97 30 05/28/18 07:30 05/28/18 07:30 05/28/18 07:46 05/28/18 07:30 05/28/18 07:30 05/27 16:00 Physical Exam: Gen - NAD, Lethargic HEENT - ncat, eomi, perrl Neck - no jvd CV - s1/s2, no murmur Pulm - cta, no wheeze Abd - soft, nt Ext - no edema, left foot first digit ulcer with eschar Neuro - lethargic, arousable, answers questions appropriately Fluid Balance (Past 24 Hours): I= O= Net Intake & Output 05/26/18 05/27/18 05/28/18 05/29/18 06:59 06:59 06:59 06:59 Intake Total 2104.8 3084.1 Output Total 100 1235 40 Balance 2004.8 1849.1 -40 Weight 76.4 kg 76.9 kg Intake: IV Fluids 0 1604.3 LR 1520 NS (0.9%) 20 34.3 IVPB 1000 LR 1000 Medicated IV 30.8 476.8 CC - Dopamine 30.8 46.1 levophed 130.5 potassium chloride 300.2 IV Narcotic Infusion 4 3 Versed 4 3 Oral 0 Output: Trivedi 100 1235 40 Other: Estimated Stool Amount Medium Labs: Laboratory Results - last 24 hr 05/27/18 05/27/18 05/27/18 08:07 11:40 11:40 WBC RBC Hgb Hct MCV MCH MCHC RDW Plt Count MPV Neut % (Auto) Lymph % (Auto) Hendricks % (Auto) Eos % (Auto) Baso % (Auto) Absolute Neuts (auto) Absolute Lymphs (auto) Absolute Monos (auto) Absolute Eos (auto) Absolute Basos (auto) Absolute Nucleated RBC Nucleated RBC % VBG pH 7.44 H VBG pCO2 33 L VBG pO2 40 VBG HCO3 23.7 L VBG O2 Saturation 83.1 H VBG Base Excess -1.1 L Sodium 139 Potassium 3.1 L Chloride 106 Carbon Dioxide 25 Anion Gap 8 BUN 12 Creatinine 0.98 H Est GFR ( Amer) 72.7 Est GFR (Non-Af Amer) 60.1 BUN/Creatinine Ratio 12.2 Glucose 141 H POC Glucose (mg/dL) 200 H Calcium 8.6 Magnesium Prolactin Cortisol 26.38 05/27/18 05/27/18 05/27/18 16:18 16:37 17:37 WBC RBC Hgb Hct MCV MCH MCHC RDW Plt Count MPV Neut % (Auto) Lymph % (Auto) Hendricks % (Auto) Eos % (Auto) Baso % (Auto) Absolute Neuts (auto) Absolute Lymphs (auto) Absolute Monos (auto) Absolute Eos (auto) Absolute Basos (auto) Absolute Nucleated RBC Nucleated RBC % VBG pH VBG pCO2 VBG pO2 VBG HCO3 VBG O2 Saturation VBG Base Excess Sodium Potassium Chloride Carbon Dioxide Anion Gap BUN Creatinine Est GFR ( Amer) Est GFR (Non-Af Amer) BUN/Creatinine Ratio Glucose POC Glucose (mg/dL) 67 L 63 L 112 H Calcium Magnesium Prolactin Cortisol 05/27/18 05/27/18 05/28/18 20:30 21:51 00:03 WBC RBC Hgb Hct MCV MCH MCHC RDW Plt Count MPV Neut % (Auto) Lymph % (Auto) Hendricks % (Auto) Eos % (Auto) Baso % (Auto) Absolute Neuts (auto) Absolute Lymphs (auto) Absolute Monos (auto) Absolute Eos (auto) Absolute Basos (auto) Absolute Nucleated RBC Nucleated RBC % VBG pH VBG pCO2 VBG pO2 VBG HCO3 VBG O2 Saturation VBG Base Excess Sodium Potassium Chloride Carbon Dioxide Anion Gap BUN Creatinine Est GFR ( Amer) Est GFR (Non-Af Amer) BUN/Creatinine Ratio Glucose POC Glucose (mg/dL) 52 L 124 H 83 Calcium Magnesium Prolactin Cortisol 05/28/18 05/28/18 05/28/18 02:28 03:53 05:50 WBC RBC Hgb Hct MCV MCH MCHC RDW Plt Count MPV Neut % (Auto) Lymph % (Auto) Hendricks % (Auto) Eos % (Auto) Baso % (Auto) Absolute Neuts (auto) Absolute Lymphs (auto) Absolute Monos (auto) Absolute Eos (auto) Absolute Basos (auto) Absolute Nucleated RBC Nucleated RBC % VBG pH VBG pCO2 VBG pO2 VBG HCO3 VBG O2 Saturation VBG Base Excess Sodium 141 Potassium 3.9 Chloride 112 H Carbon Dioxide 25 Anion Gap 4 BUN 9 Creatinine 0.89 Est GFR ( Amer) 81.2 Est GFR (Non-Af Amer) 67.1 BUN/Creatinine Ratio 10.1 Glucose 61 L POC Glucose (mg/dL) 56 L 111 H Calcium 8.0 L Magnesium 1.6 L Prolactin 7.2 Cortisol 05/28/18 05/28/18 05/28/18 05:50 05:53 07:50 WBC 6.8 RBC 3.54 L Hgb 9.7 L Hct 29 L MCV 82 MCH 27 MCHC 33 RDW 15 Plt Count 190 MPV 7.9 Neut % (Auto) 62.1 Lymph % (Auto) 26.9 Hendricks % (Auto) 8.3 H Eos % (Auto) 2.2 Baso % (Auto) 0.5 Absolute Neuts (auto) 4.3 Absolute Lymphs (auto) 1.8 Absolute Monos (auto) 0.6 Absolute Eos (auto) 0.2 Absolute Basos (auto) 0 Absolute Nucleated RBC 0 Nucleated RBC % 0 VBG pH VBG pCO2 VBG pO2 VBG HCO3 VBG O2 Saturation VBG Base Excess Sodium Potassium Chloride Carbon Dioxide Anion Gap BUN Creatinine Est GFR ( Amer) Est GFR (Non-Af Amer) BUN/Creatinine Ratio Glucose POC Glucose (mg/dL) 64 L 57 L Calcium Magnesium Prolactin Cortisol Studies: CTA Brain 05/27 IMPRESSION: No hemodynamically significant stenosis or large vessel occlusion. CT Head 05/27 IMPRESSION: No acute intracranial hemorrhage. No acute interval changes in comparison to the prior study. CXR 05/27 IMPRESSION: LINES AND TUBES ABOVE. NO ACTIVE CARDIOPULMONARY DISEASE Left Foot Xray 05/26 IMPRESSION: 1. POSTSURGICAL CHANGE. 2. NO APPRECIABLE EROSION OR PERIOSTEAL REACTION. 3. PLAIN FILM FINDINGS OF OSTEOMYELITIS ARE RELATIVELY LATE FINDINGS. IF THERE IS PERSISTENT CLINICAL CONCERN FOR OSTEOMYELITIS, RECOMMEND CORRELATION WITH FOLLOWUP IMAGING, THREE-PHASE BONE SCANNING, WHITE BLOOD CELL SCAN, AND/OR MRI OF THE AFFECTED REGION. Impression: 52F with htn, hld, dm, anxiety, depression, copd on home o2, neuropathy admitted with diabetic foot ulcer complicated by altered mental status, bradycardia and hypotension. Septic shock 2/2 e. coli uti. Seizure? Plan: Neuro - AMS, neuropathy - encephalopathy vs seizure - 2/2 sepsis? - sedating meds stopped - improving CV - hypotension, bradycardia - 2/2 septic shock - TLC placed and was on levophed until this am - c/w iv hydration Pulm - respiratory failure - 2/2 ams - extubated yesteday ID - septic shock - 2/2 e coli uti - c/w ceftriaxone - f/u cultures - iv hydration GI - advance diet as tolerated Renal - josseline - josseline resolved with hydration - replete magnesium Heme - monitor cbc Endo - DM, hypoglycemia - received 80 units of lantus yesterday and FS now low - lantus stopped - d5LR gtt started - continue to monitor fs - a1c 14 - tsh normal Lines - piv, TLC (05/27/18), Trivedi - DC today PPx - gi/dvt Full Code Critical Care Time: 45 mins
[2018-05-28] MEDS: Atorvastatin* 20 MG TAB PO SCH (08:29)
[2018-05-28] MEDS: cefTRIAXone(*) 1 GM in NS 0.9% 50 ML* 50 ML IVPB SCH (11:31)
[2018-05-28] MEDS: Acetaminophen ADULT LIQ* 650 MG/20.3 ML UDC PO PRN (16:49)
[2018-05-28] MEDS: D5LR 1000 ML BAG* 1,000 ML IV SCH (19:36)
--- NOTE | 2018-05-28 20:01 | PN ---
PROGRESS NOTE: DATE OF SERVICE:05/28/18 HISTORY: Dr. Chanel was consulted on Lesly Mcgregor yesterday, 05/27/18, for episode of unresponsiveness with blood pressure to 60/40 with a pulse of 40 resulting in intubation. She had a CTA, which was negative for any large vessel involvement, question whether there may be a role of sepsis and she had an MRI of her left foot, which showed possible osteomyelitis. There was a question of seizure for which she had EEG, which showed no epileptiform activity. Polypharmacy was questioned in contribution to the clinical symptoms , and modification of medication was made. She progressively improved, was extubated, and is now on the floor, surrounded by family, with no new focal symptoms. ICU attending indicated that no further neurologic input is needed at this time. Accordingly, I will sign off the case. Please call if there are any new neurologic questions or concerns. [id number]/[facility] #: [id number] MTDD
[2018-05-29] MEDS: Acetaminophen ADULT LIQ* 650 MG/20.3 ML UDC PO PRN (03:54)
[2018-05-29] MEDS: Heparin VIAL(*) 5000 UNITS/ML VIAL (FIVE THOUSAND) SUBCUT SCH ×3 (05:07→22:13)
[2018-05-29 06:24] LABS: ABS Basophils 0 10^3/ul (0-0.2); ABS Eosinophils 0.3 10^3/ul (0-0.6); ABS Lymphocytes 1.4 10^3/ul (1.0-4.8); ABS Monocytes 0.4 10^3/ul (0-0.8); ABS Neutrophils 2.9 10^3/ul (1.5-7.7); ABS Nucleated RBC 0 10^3/ul; Eosinophil % 6.3 % (0-6); Hematocrit 30 % (35-47); Hemoglobin 9.8 g/dl (12.0-16.0); Mean Corpuscular HGB Conc 33 g/dl (31-36); Mean Corpuscular Hemoglobin 27 pg (27-31); Mean Corpuscular Volume 82 fL (80-97); Nucleated Red Blood Cells % 0.1; Platelet Count 180 10^3/ul (150-450); Red Blood Count 3.62 10^6/ul (4.00-5.40); Red Cell Distribution Width 15 % (10.5-15)
[2018-05-29] MEDS: D5LR 1000 ML BAG* 1,000 ML IV SCH (06:37)
[2018-05-29] MEDS ORDERED: Magnesium Sulfate 1 GM IV* 1 GM/100 ML BAG IV ONE (08:00)
[2018-05-29] MEDS: Insulin LISPRO* 1 UNITS UNIT SUBCUT SCH ×4 (08:55→22:14)
[2018-05-29] MEDS: Atorvastatin* 20 MG TAB PO SCH (09:16)
[2018-05-29] MEDS: HYDROcodone/ACETAMIN 5-325 MG* 1 TAB PO PRN ×3 (09:16→22:15)
[2018-05-29] MEDS: cefTRIAXone(*) 1 GM in NS 0.9% 50 ML* 50 ML IVPB SCH (11:55)
[2018-05-29] MEDS: Lactobacillus Acidophilus* 1 TAB PO SCH ×2 (11:57→22:15)
--- NOTE | 2018-05-29 12:33 | PN ---
Subjective Date of Service: 05/29/18 Interval History: Pt noted 3 loose stools today , denies abd pain Noted to be still weak with limited ambulation with PT Objective Active Medications: Acetaminophen (Tylenol Adult Liq*) 650 mg PO Q6H PRN PRN Reason: FEVER Last Admin: 05/29/18 03:54 Dose: 650 mg Hydrocodone Bitart/Acetaminophen ([place] 5-325 Tab*) 1 tab PO Q6H PRN PRN Reason: PAIN Last Admin: 05/29/18 09:16 Dose: 1 tab Albuterol (Ventolin 2.5 Mg/3 Ml Neb.Loly*) 2.5 mg INH Q4H PRN PRN Reason: SOB/WHEEZING Atorvastatin Calcium (Lipitor*) 20 mg PO DAILY [facility] Last Admin: 05/29/18 09:16 Dose: 20 mg Dextrose (D50w Syringe 50 Ml*) 12.5 gm IV PUSH .FOR FS < 60 - SS PRN PRN Reason: FS < 60 Last Admin: 05/28/18 07:58 Dose: 12.5 gm Heparin Sodium (Porcine) (Heparin Vial(*)) 5,000 units SUBCUT Q8HR [facility] Last Admin: 05/29/18 05:07 Dose: 5,000 units Ceftriaxone Sodium 1 gm/ (Sodium Chloride) 50 mls @ 200 mls/hr IVPB Q24H [facility] Last Admin: 05/29/18 11:55 Dose: 200 mls/hr Insulin Human Lispro (Humalog*) 0 units SUBCUT FS ACHS ICU [place]; Protocol Last Admin: 05/29/18 12:02 Dose: Not Given Lactobacillus Rhamnosus (Lactobacillus Acidophilus*) 1 tab PO BID [facility] Last Admin: 05/29/18 11:57 Dose: 1 tab Ondansetron HCl (Zofran Inj*) 4 mg IV Q4H PRN PRN Reason: NAUSEA/VOMITING Vital Signs - 8 hr 05/29/18 05/29/18 05/29/18 07:29 08:00 09:16 Temperature 98.1 F Pulse Rate 64 Respiratory 16 16 16 Rate Blood Pressure 114/54 (mmHg) O2 Sat by Pulse 99 Oximetry Oxygen Devices in Use Now: None Appearance: 52 yo F in nAD, aAOx3 Eyes: No Scleral Icterus, PERRLA Ears/Nose/Mouth/Throat: NL Teeth, Lips, Gums, Mucous Membranes Moist Neck: NL Appearance and Movements; NL JVP, Trachea Midline Respiratory: Symmetrical Chest Expansion and Respiratory Effort Cardiovascular: NL Sounds; No Murmurs; No JVD, RRR Abdominal: NL Sounds; No Tenderness; No Distention, No Hepatosplenomegaly Lymphatic: No Cervical Adenopathy Extremities: No Edema, No Clubbing, Cyanosis Skin: No Nodules or Sclerosis, - - foot ulcer at bottom of L foot, base of left 1st toe , covered with eschar, unstageable, hyperthrophic skin Neurological: Alert and Oriented x 3, NL Muscle Strength and Tone Result Diagrams: 05/29/18 06:04 05/29/18 06:04 Microbiology and Other Data: Microbiology 05/27/18 12:40 Aerobic Blood Culture - Preliminary Blood Venous No Growth Day 1 Anaerobic Blood Culture - Preliminary No Growth Day 1 05/27/18 12:40 Aerobic Blood Culture - Preliminary Blood Venous No Growth Day 1 Anaerobic Blood Culture - Preliminary No Growth Day 1 05/26/18 11:37 Urine Culture - Final Urine Escherichia Coli 05/27/18 05:30 Nasal Screen MRSA (PCR) - Final Nasal Mrsa Not Detected Assess/Plan/Problems-Billing Assessment: 52 yo f with h/o chronic pain, depression , DM presented with uncontrolled DM, when hospitalized had en episode of unresponsiveness and required intubation. Neurology noted that pt was on Bactrim as well as amitriptiline, Effexor and hydroxyzine that could lower seizure threshold. - Patient Problems (1) UTI (urinary tract infection) Comment: U cx positive for E. coli.Cont ceftriaxone (2) Diabetes mellitus, insulin dependent (IDDM), uncontrolled Comment: Pt was noted to be hypoglycemic when intubated and required D5 infusion will d/c D5 gtt. Continue ISS (3) Unresponsive episode Comment: Could have been due to a seizure. Suspicion is polypharmacy and concominant use of Bactrim. EEG unremarkable Pt required transient tx with pressors when intubated. so far septic shock is low on differential(CRP relatively low, no leukocytosis, no fever) Neuro signed off. (4) Foot ulcer Comment: at the base of left 1st toe. appreciate wound care consult: cont wound open to air and f/u with podiatry. D/w ortho-for now no need for any surgical intervention MRI shows possible early osteo , but no evidence of ongoing infection on inspection. will d/w ID in AM (5) Chronic pain Comment: home norco restarted (6) Muscular deconditioning Comment: cont PT (7) DVT prophylaxis Comment: SQ heparin Status and Disposition: inpatient
[2018-05-30] MEDS: Heparin VIAL(*) 5000 UNITS/ML VIAL (FIVE THOUSAND) SUBCUT SCH ×3 (05:54→21:45)
[2018-05-30] MEDS: Atorvastatin* 20 MG TAB PO SCH (08:49)
[2018-05-30] MEDS: Lactobacillus Acidophilus* 1 TAB PO SCH ×2 (08:49→21:15)
[2018-05-30] MEDS: Insulin LISPRO* 1 UNITS UNIT SUBCUT SCH ×4 (08:50→21:15)
[2018-05-30] MEDS: cefTRIAXone(*) 1 GM in NS 0.9% 50 ML* 50 ML IVPB SCH (11:25)
--- NOTE | 2018-05-30 11:31 | PN ---
Subjective Date of Service: 05/30/18 Interval History: pt feels stronger today. diarrhea resolved. Objective Active Medications: Acetaminophen (Tylenol Adult Liq*) 650 mg PO Q6H PRN PRN Reason: FEVER Last Admin: 05/29/18 03:54 Dose: 650 mg Hydrocodone Bitart/Acetaminophen ([place] 5-325 Tab*) 1 tab PO Q6H PRN PRN Reason: PAIN Last Admin: 05/29/18 22:15 Dose: 1 tab Albuterol (Ventolin 2.5 Mg/3 Ml Neb.Loly*) 2.5 mg INH Q4H PRN PRN Reason: SOB/WHEEZING Atorvastatin Calcium (Lipitor*) 20 mg PO DAILY [place] Last Admin: 05/30/18 08:49 Dose: 20 mg Dextrose (D50w Syringe 50 Ml*) 12.5 gm IV PUSH .FOR FS < 60 - SS PRN PRN Reason: FS < 60 Last Admin: 05/28/18 07:58 Dose: 12.5 gm Heparin Sodium (Porcine) (Heparin Vial(*)) 5,000 units SUBCUT Q8HR [place] Last Admin: 05/30/18 05:54 Dose: 5,000 units Ceftriaxone Sodium 1 gm/ (Sodium Chloride) 50 mls @ 200 mls/hr IVPB Q24H [place] Last Admin: 05/30/18 11:25 Dose: 200 mls/hr Insulin Human Lispro (Humalog*) 0 units SUBCUT FS ACHS ICU [place]; Protocol Last Admin: 05/30/18 11:25 Dose: 8 units Lactobacillus Rhamnosus (Lactobacillus Acidophilus*) 1 tab PO BID [facility] Last Admin: 05/30/18 08:49 Dose: 1 tab Ondansetron HCl (Zofran Inj*) 4 mg IV Q4H PRN PRN Reason: NAUSEA/VOMITING Vital Signs - 8 hr 05/30/18 05/30/18 05/30/18 03:40 04:08 06:45 Temperature 98.2 F 99.0 F Pulse Rate 67 70 65 Respiratory 16 16 15 Rate Blood Pressure 128/58 121/59 (mmHg) O2 Sat by Pulse 96 96 95 Oximetry 05/30/18 08:00 Temperature Pulse Rate Respiratory 20 Rate Blood Pressure (mmHg) O2 Sat by Pulse Oximetry Oxygen Devices in Use Now: None Appearance: 52 yo F in nAD, aAOx3 Eyes: No Scleral Icterus, PERRLA Ears/Nose/Mouth/Throat: NL Teeth, Lips, Gums, Mucous Membranes Moist Neck: NL Appearance and Movements; NL JVP, Trachea Midline Respiratory: Symmetrical Chest Expansion and Respiratory Effort, Clear to Auscultation Cardiovascular: NL Sounds; No Murmurs; No JVD, RRR Abdominal: NL Sounds; No Tenderness; No Distention, No Hepatosplenomegaly Lymphatic: No Cervical Adenopathy Extremities: No Edema, No Clubbing, Cyanosis Skin: - - left bottom of foot , base of left 1st toe-ulcer with hyperthrophied skin, covered with eschar, unstageable Neurological: Alert and Oriented x 3, NL Muscle Strength and Tone Result Diagrams: 05/29/18 06:04 05/29/18 06:04 Microbiology and Other Data: Microbiology 05/27/18 12:40 Aerobic Blood Culture - Preliminary Blood Venous No Growth Day 1 Anaerobic Blood Culture - Preliminary No Growth Day 1 05/27/18 12:40 Aerobic Blood Culture - Preliminary Blood Venous No Growth Day 1 Anaerobic Blood Culture - Preliminary No Growth Day 1 05/26/18 11:37 Urine Culture - Final Urine Escherichia Coli 05/27/18 05:30 Nasal Screen MRSA (PCR) - Final Nasal Mrsa Not Detected Assess/Plan/Problems-Billing Assessment: 52 yo f with h/o chronic pain, depression , DM presented with uncontrolled DM, when hospitalized had en episode of unresponsiveness and required intubation. Neurology noted that pt was on Bactrim as well as amitriptiline, Effexor and hydroxyzine that could lower seizure threshold. - Patient Problems (1) UTI (urinary tract infection) Comment: U cx positive for E. coli.Cont ceftriaxone one more day (2) Diabetes mellitus, insulin dependent (IDDM), uncontrolled Comment: Pt was noted to be hypoglycemic when intubated and required D5 infusion D5 gtt d/c'd on 05/29/18, today BG >300, will restart Lantus Continue ISS (3) Unresponsive episode Comment: Could have been due to a seizure. Suspicion is polypharmacy and concominant use of Bactrim. EEG unremarkable Pt required transient tx with pressors when intubated. So far septic shock is low on differential(CRP relatively low, no leukocytosis, no fever) Neuro signed off. (4) Foot ulcer Comment: at the base of left 1st toe. appreciate wound care consult: cont wound open to air and f/u with podiatry. D/w ortho-for now no need for any surgical intervention MRI shows possible early osteo , but no evidence of ongoing infection on inspection. ID consult in AM, forn now cont Ceftriaxone (5) Chronic pain Comment: cont home norco (6) Muscular deconditioning Comment: cont PT (7) DVT prophylaxis Comment: SQ heparin Status and Disposition: inpatient
[2018-05-30] MEDS ORDERED: Insulin GLARGINE(*) 1 UNITS UNIT SUBCUT SCH (12:00)
[2018-05-30] MEDS: HYDROcodone/ACETAMIN 5-325 MG* 1 TAB PO PRN ×2 (12:36→19:06)
[2018-05-31] MEDS: Heparin VIAL(*) 5000 UNITS/ML VIAL (FIVE THOUSAND) SUBCUT SCH ×2 (06:07→13:11)
[2018-05-31] MEDS: HYDROcodone/ACETAMIN 5-325 MG* 1 TAB PO PRN (06:07)
[2018-05-31 07:04] LABS: ABS Basophils 0 10^3/ul (0-0.2); ABS Eosinophils 0.2 10^3/ul (0-0.6); ABS Lymphocytes 1.3 10^3/ul (1.0-4.8); ABS Monocytes 0.4 10^3/ul (0-0.8); ABS Neutrophils 2.6 10^3/ul (1.5-7.7); ABS Nucleated RBC 0 10^3/ul; Eosinophil % 3.8 % (0-6); Hematocrit 30 % (35-47); Hemoglobin 9.9 g/dl (12.0-16.0); Lymphocyte % 28.6 % (25-47); Mean Corpuscular HGB Conc 33 g/dl (31-36); Mean Corpuscular Hemoglobin 27 pg (27-31); Mean Corpuscular Volume 82 fL (80-97); Mean Platelet Volume 7.9 um3 (7.4-10.4); Nucleated Red Blood Cells % 0.1; Platelet Count 204 10^3/ul (150-450); Red Blood Count 3.65 10^6/ul (4.00-5.40); Red Cell Distribution Width 16 % (10.5-15); White Blood Count 4.5 10^3/ul (3.5-10.8)
[2018-05-31 07:34] LABS: EGFR Non-African American 64.6 (>60)
[2018-05-31] MEDS: Atorvastatin* 20 MG TAB PO SCH (08:08)
[2018-05-31] MEDS: Lactobacillus Acidophilus* 1 TAB PO SCH (08:09)
[2018-05-31] MEDS: Insulin LISPRO* 1 UNITS UNIT SUBCUT SCH ×2 (08:09→13:12)
[2018-05-31] MEDS ORDERED: Insulin GLARGINE(*) 1 UNITS UNIT SUBCUT SCH (08:33)
[2018-05-31] MEDS: cefTRIAXone(*) 1 GM in NS 0.9% 50 ML* 50 ML IVPB SCH (13:12)
[2018-05-31 13:40] VITALS: BP 112/74
[2018-05-31] MEDS ORDERED: Insulin GLARGINE(*) 1 UNITS UNIT SUBCUT ONE (14:02)
--- NOTE | 2018-05-31 19:55 | CONS ---
CONSULTATION REPORT: DATE OF CONSULT: 05/31/18 REQUESTING PHYSICIAN: Dr. Palmer. CONSULTING SERVICE: Infectious Disease. REASON FOR CONSULT: Left great foot wound. IMPRESSION: 1. Superficial wound, chronic over the plantar surface of the left first MTP joint. She reports a history of underlying MTP or IP fixation in the past, now with a cellulitis, improving on ceftriaxone. 2. Diabetes with hyperglycemic state and peripheral neuropathy. 3. Seizure. 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 HISTORY OF PRESENT ILLNESS: This is a 52-year-old woman with diabetes and neuropathy, admitted with left foot ulcer recurrence. She has had at least the last year a wound on the plantar surface of the dorsal aspect of the first MTP, a wound that has opened and heals intermittently. It drains when it is open. There is sometimes redness and swelling. She has from time to time been nonweightbearing and then using a walker and more recently using crutches. She was at the [facility] and her flip-flop broke and so, she was walking barefoot. The wound opened up. She came to the hospital. Blood sugar was 650. While she was here, she had a generalized tonic-clonic seizure. She was seen by Neurology, who felt that it was a polypharmacy related issue in the setting of hyperglycemia. She had an MRI that showed some increased T2 intensity of the left distal phalanx of the great toe without loss of T1 hyperintensity. There was no fracture. She has been on ceftriaxone here. The erythema that was present is improving. The wound is not draining. She denies any pain, but she does have neuropathy. PAST MEDICAL HISTORY: 1. Diabetes with peripheral neuropathy, insulin-dependent. 2. Hypertension. 3. COPD, on chronic supplemental oxygen. 4. Arthritis. 5. Anxiety. 6. Depression. PAST SURGICAL HISTORY: 1. History of left first ray fixation on the foot. 2. Status post kidney stone removal. ALLERGIES: LATEX and MICONAZOLE. MEDICATIONS: 1. Tylenol. 2. Albuterol. 3. Lipitor. 4. Heparin subcutaneous injection. 5. Vicodin as needed. 6. Insulin glargine. 7. Lactobacillus. 8. Ceftriaxone 1 g a day. SOCIAL HISTORY: She denies injection drugs. She had recently traveled to the [facility]. She had smoked crack cocaine in the past. She is on disability and lives with her family. FAMILY HISTORY: The patient is adopted. She does not know any of the history. REVIEW OF SYSTEMS: All negative to a 14-point review of systems except as noted above in the history of present illness. PHYSICAL EXAM: Vital Signs: Temperature is 36.3, heart rate 70, respiratory rate 18, blood pressure 112/74, oxygen 100% on 2 L by nasal cannula. In general , she is awake, not in distress. Neurologic: She is oriented x3. Follows all commands. There is decreased sensation in both feet. HEENT: There is no conjunctival hemorrhage. Oropharynx without lesions. Neck is supple without mass. Heart is regular rate and rhythm without murmurs, rubs, or gallops. Lungs are clear to auscultation bilaterally. Abdomen: Soft, nontender, nondistended. There are bowel sounds present. Skin: There is no rash or splinter hemorrhage. Musculoskeletal: There is no spine tenderness to palpation. On the left foot dorsal aspect between the MTP and PIP joint, there is a diffuse superficial ulceration without surrounding erythema or drainage. LABORATORY DATA: White blood cell count 4.5, hemoglobin 9.9, platelets 204. Creatinine is 0.9. CRP was 10. Please see impressions and recommendations as outlined above, which I have discussed with Dr. Palmer. Thanks for asking me to see Ms. Mcgregor in consultation. [id number]/[facility] #: [id number] [facility]
--- NOTE | 2018-06-01 00:07 | DS ---
CC: Gustavo Maldonado NP; Dr. Chanel; Dr. Chen; Dr. Shaw; Dr. Luong, Podiatry * DISCHARGE SUMMARY: DATE OF ADMISSION: 05/26/18 DATE OF DISCHARGE: 05/31/18 PRIMARY CARE PROVIDER: Gustavo Maldonado NP DISCHARGE DIAGNOSES: 1. Uncontrolled diabetes. 2. 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 3. Escherichia coli urinary tract infection. 4. Episode of unresponsiveness. On the night of admission, that also was coincided with hypotension and bradycardia with initial differential that included septic shock but likely related to seizure that was induced by polypharmacy. MEDICATIONS AT DISCHARGE: Include, 1. Lipitor 20 mg daily. 2. Gabapentin 600 mg 3 times a day. 3. Hydrocodone with acetaminophen on p.r.n. basis. 4. Lisinopril 10 mg daily. 5. Lyrica 75 mg b.i.d. 6. Januvia 100 mg daily. 7. Doxycycline 100 mg b.i.d. for a total of 60 days. 8. Insulin Lantus 50 units subcutaneously daily. The patient is to check her sugars twice a day in the morning and at night and increase her Lantus coverage by 10 units every day when her sugars are above 300s. The patient was set up with [facility] at discharge. FOLLOWUP: 1. The patient is recommended to follow up with Gustavo Maldonado in approximately 4 to 7 days. 2. The patient is also recommended to follow up with Dr. Shaw in approximately 1 to 2 weeks. LABORATORY DATA: Studies performed during the hospital stay include, On 05/31/18, white blood cell count of 4.5, hemoglobin 9.9, hematocrit of 30 and platelets of 204. ABG obtained on 05/27/18 showed pH of 7.45, pCO2 of 29, pO2 of 171, bicarb of 24. On 05/31/18, sodium of 138, potassium of 4.8, chloride 104, carbon dioxide 30, BUN 25, creatinine was 0.92. The patient's sugar in the past couple of days ranged from 163 to 337. C-reactive protein on the day of discharge was 10.3, on day of admission was 8. The patient's liver function tests were unremarkable on 05/29/18. The patient's cortisol level on 05/27/18 was 26. Prolactin level on 05/27/18 was 79 and was down to 7.2 on 05/28/18. TSH was 1.64 obtained on admission. Procalcitonin level was below 0.1 on 05/27/18. Microbiology studies showed urine culture is positive for E. coli over 100,000 colonies treated with ceftriaxone during the patient's hospital stay. Blood cultures were negative. EEG obtained on 05/27/18, impression "there is abnormal mostly drowsy and sleepy EEG due to diffuse background slowing with some sleep spindles suggestive of stage II sleep. There were no epileptiform abnormalities. These findings were suggestive of nonspecific mild to moderate diffuse encephalopathy. " Transthoracic echocardiogram showed EF greater than 65%, borderline LVH. Mild to moderate pulmonary hypertension and mild dilatation of pulmonary root. CT angiogram of the head obtained on 05/27/18, impression "no hemodynamically significant stenosis or large vessel occlusion." Left foot MRI obtained on 05/26/18, impression "bone marrow edema without corresponding loss of normal T1 marrow hyperintensity at the first distal phalanx is nonspecific. The differential probably includes reactive edema secondary to adjacent soft tissue inflammatory response as well as early osteomyelitis. Soft tissue edema involving the subcutaneous tissue plane and intrinsic skeletal musculature without significant focality or evidence of locating soft tissue plane abscess collection." Brain CT obtained on 05/27/18, impression "no acute intracranial hemorrhage. No acute interval changes in comparison with prior study." Portable chest x-ray obtained on 05/27/18, impression "lines and tubes as above. No active cardiopulmonary disease." HOSPITALIZATION: Lesly Mcgregor is a 52-year-old female with history of diabetes which is uncontrolled who presented to the hospital on 05/26/18 complaining after sugar is being in the 600s. She also stated [place] and she opened up her chronic left bottom of the foot wound. She was placed on overnight observation for uncontrolled diabetes. She also was noted to have abnormal urinalysis and ceftriaxone was started intravenously. The patient also was at that point on Bactrim and Augmentin as prescribed by primary care provider for the foot ulcer. On the first night of the patient's admission, the patient was found unresponsive by the nurse. The code was called. The patient was hypotensive and bradycardic and intubated that night. She regained consciousness while intubated. Dr. Chanel saw the patient in consultation from Neurology. At that point, it was noted that her prolactin level is elevated. Despite that her EEG did not show any paroxysmal abnormalities and it was likely the patient had a seizure. It was thought that the patient had seizure due to polypharmacy that included at that point Bactrim as well as amitriptyline, hydroxyzine and venlafaxine. The last 3 medications were stopped during the hospital stay. The patient was extubated in the intensive care unit and did very well post extubation. She has generalized weakness and she required couple of days in physical therapy. During the time, she continues to be treated with ceftriaxone for a UTI. She did very well and she suffered from no withdrawal symptoms from venlafaxine discontinuation. We also did not restart her amitriptyline and hydroxyzine and the patient was actually happy about it. The patient's MRI of the left foot had chronic base of the left toe foot ulcer, it was questionable for osteomyelitis. At that point, Dr. Shaw saw the patient in consultation on day of discharge. At this point, recommendation is that the patient likely has chronic foot ulcer infection but less likely osteomyelitis. Nevertheless, it is recommended for the patient to be treated with doxycycline 100 mg p.o. b.i.d. for a total of [address] Shaw also wishes to see the patient in the office for followup. During the hypotensive episode and unresponsive episode, the patient was at that point n.p.o. but she received 70 units of insulin that she was taking at home. At that point, it was noted that the patient started developing hypoglycemia and she needed to be placed on dextrose drip. She was continued on dextrose drip until 05/29/18 when it was discontinued. At this point, her sugars slowly started trending up and her Lantus was restarted. Currently the patient's Lantus dose is up to 50 units a day. She still has fluctuating blood sugars from anywhere from 160 to 320 in 1 day. I suspect that with the patient' s reported diet noncompliance, she will require more insulin. I asked the patient to check her sugars on twice a day basis and to increase her Lantus dosage by 10 units. Every day she checks her sugars and noted that her sugars are consistently in the 300 range. The patient understands these recommendations. It is recommended to follow up with Dr. Luong after discharge. The patient was seen by the wound care nurse in regards to wound management of the left great toe. She was recommended to leave the area open to air as often as possible. She is supposed to wear diabetic shoes. She is also recommended to cover the area with Band-Aid when ambulating. By the time of discharge, the patient is ambulating with a rolling walker but she is getting stronger every day. She is going to be set up with visiting nurse association to follow up with physical therapy and occupational therapy at home. PHYSICAL EXAM AT THE TIME OF DISCHARGE: Blood pressure of 112/74, heart rate of 71 and regular. Respiratory rate of 18, oxygen saturation of 100% on room air, temperature 97.3. General: The patient is a very pleasant 52-year-old female who is in no acute distress. Alert, awake and oriented x3. HEENT: Head , atraumatic, normocephalic. Eyes: Pupils equal, round, and reactive to light and accommodation. Oropharynx clear. Mucosa moist. Neck: Supple. No JVD. No bruits bilaterally. Cardiovascular: Regular rate and rhythm. No murmur. Respiratory: Clear to auscultation bilaterally. Abdomen: Soft, nontender. Bowel sounds present in all 4 quadrants. Extremities: There is no edema, pulses +2 bilaterally. There is no clubbing, cyanosis. On evaluation of the skin, the patient has a base of the left first toe, she has an area of hypertrophic skin of approximately 4 x 4 cm with the central area covered with eschar. The eschar does breakup when the patient starts walking and sometimes bleeds. There is no evidence of erythema in the area and there is no other draining from the wound. Please also note that bilateral feet are numb due to peripheral neuropathy. Please note that this is a short summary of the patient's hospitalization. Please refer to further medical records for details. TIME SPENT: Approximately 60 minutes were spent on the patient's discharge. [id number]/CPS #: [id number] MTDD
== END 2018-05-31 15:45 | disposition home or self-care (01) | DRG 344 ==
LOC: ED 09:51 → MED 13:21 → OBSVTOIN 05-27 04:00 → ICU 05-27 04:07 → MED 05-28 16:20
PROVIDERS: ADMIT Internal Medicine; ATTEND Internal Medicine
PROC: 05HN33Z Insertion of Infusion Device into Left Internal Jugular Vein, Percutaneous Approach (ICD-10-PCS; principal; 2018-05-27)
PROC: 0BH17EZ Insertion of Endotracheal Airway into Trachea, Via Natural or Artificial Opening (ICD-10-PCS; 2018-05-27)
PROC: 5A1935Z Respiratory Ventilation, Less than 24 Consecutive Hours (ICD-10-PCS; 2018-05-27)
PROC: 4A00X4Z Measurement of Central Nervous Electrical Activity, External Approach (ICD-10-PCS; 2018-05-27)
PROC: 0BP1XDZ Removal of Intraluminal Device from Trachea, External Approach (ICD-10-PCS; 2018-05-28)
PROC: 3E033XZ Introduction of Vasopressor into Peripheral Vein, Percutaneous Approach (ICD-10-PCS; 2018-05-31)
DX: E11.621 Type 2 diabetes mellitus with foot ulcer (principal); G93.40 Encephalopathy, unspecified; J96.90 Respiratory failure, unspecified, unspecified whether with hypoxia or hypercapnia; N39.0 Urinary tract infection, site not specified; M86.9 Osteomyelitis, unspecified; E11.42 Type 2 diabetes mellitus with diabetic polyneuropathy; E11.69 Type 2 diabetes mellitus with other specified complication; E11.65 Type 2 diabetes mellitus with hyperglycemia; N17.9 Acute kidney failure, unspecified; L08.9 Local infection of the skin and subcutaneous tissue, unspecified; J44.9 Chronic obstructive pulmonary disease, unspecified; L97.529 Non-pressure chronic ulcer of other part of left foot with unspecified severity; M19.042 Primary osteoarthritis, left hand; M19.041 Primary osteoarthritis, right hand; F32.9 Major depressive disorder, single episode, unspecified; F41.9 Anxiety disorder, unspecified; M19.90 Unspecified osteoarthritis, unspecified site; R00.1 Bradycardia, unspecified; I10 Essential (primary) hypertension; L97.519 Non-pressure chronic ulcer of other part of right foot with unspecified severity; R56.9 Unspecified convulsions; B96.20 Unspecified Escherichia coli [E. coli] as the cause of diseases classified elsewhere; I27.20 Pulmonary hypertension, unspecified; I28.8 Other diseases of pulmonary vessels; I95.9 Hypotension, unspecified; E11.649 Type 2 diabetes mellitus with hypoglycemia without coma; Z91.19 Patient's noncompliance with other medical treatment and regimen; E66.3 Overweight; Z68.30 Body mass index [BMI] 30.0-30.9, adult; Y92.9 Unspecified place or not applicable; T37.0X5A Adverse effect of sulfonamides, initial encounter; G89.29 Other chronic pain; Z88.8 Allergy status to other drugs, medicaments and biological substances; Z91.040 Latex allergy status; Z83.3 Family history of diabetes mellitus; Z87.891 Personal history of nicotine dependence; Z99.81 Dependence on supplemental oxygen; Z79.4 Long term (current) use of insulin
CPT/HCPCS: 36415; 36600; 70450; 70496; 70498; 71045; 80048; 80053; 80076; 81003; 81015; 82140; 82533; 82803; 83605; 83615; 83735; 84132; 84145; 84146; 84443; 84484; 85025; 85610; 85730; 86140; 86850; 86900; 86901; 87040; 87077; 87086; 87186; 87641; 90686; 93005; 93306; 94002; 95822; 99284; A9270-GY; G0378; G8987-GO-CJ; G8988-GO-CJ; G8989-GO-CJ; J0330; J0461; J0696; J1265; J1644; J2250; J2310; J3010; J3475; J3480; Q9967

== ENCOUNTER 2018-09-04 16:50 | Inpatient (IN) | payer OTHER ==
[2018-09-04] MEDS ORDERED: Dextrose 50% Syringe 50 ML* 25 GM/50 ML SYRINGE ONE ×2 (17:11→18:25)
[2018-09-04] MEDS ORDERED: Dextrose 50% Syringe 50 ML* 25 GM/50 ML SYRINGE IV PUSH ONE (17:12)
--- NOTE | 2018-09-04 17:19 | ED ---
HPI Diabetic - HPI Summary HPI Summary: 53 year old F brought in by EMS to [facility] accompanied by , daughter, and grandchild with a chief complaint of decreased mental status and low blood glucose since 13:30 today, worse since 16:30. The patient rates the pain 0/10 in severity. Symptoms aggravated by nothing. Symptoms alleviated by nothing. Daughter found patient shaking at home before family called 911. Patient is tremulous. She has petechiae on bilateral lower extremities. Patient denies nausea, chest pain, shortness of breath, neck pain, sore throat. Her denies fever, cough. Patient denies dysuria, although she notes recent yeast infection. Per and daughter, patient ate two hot dogs, small bowl of home fries, and chocolate covered cherries 2 hours ago. Glucoses remained low at home, in the 60's, despite pt eating, so family called EMS. Pt was recently started on a new insulin pen and pt took a dose of this insulin approx 11:30. Patient has hx diabetes. She takes insulin. Finger stick in room was 63. Patient sees Dr. St for her diabetes. Patient additionally has abrasions/open areas on her left foot which she has had since hospitalization in May 2018 for high blood glucose levels (650) . Patient was seen by Dr. Shaw who put her on ceftriaxone during this time and DC'd her on doxycycline x 6 weeks, which pt has not taken. Per his consultation note, patient has hardware in left great toe, where the open wound is, and there was concern for osteomyelitis during the May 2018 ICU visit. She is seeing hospital administrative assistant. Per daughter, patient was also put on "life support" during this admission. Review of notes from this admission show pt was seen by neurology for seizures during this admission, and it is also reported in these notes that pt has smoked crack I was called emergently to see this pt immediately upon arrival for low glucose 60's, and decreased mental status and tremulous extremities, and D50 was given with slight improvement in pt's mental status. Pt and family deny substance abuse for pt, stating that pt takes hydrocodone, but they keep it locked up and gives it to pt. Pt denies narcotic overdose or overusage. Family state that pt's glucose is always high, never low. Vital signs while in room: HR 66 bpm, BP 157/79 Home Medications Medication Instructions Recorded Confirmed Type Gabapentin TAB(NF) [Neurontin 600 600 mg PO TID 10/12/16 05/26/18 History mg TAB(NF)] Lisinopril TAB* [Prinivil TAB 10 1 tab PO QAM 10/15/17 05/26/18 History MG*] Atorvastatin* [Lipitor 20 MG*] 20 mg PO DAILY 05/26/18 05/26/18 History Hydrocodone/Acetaminophen 1 tab PO Q6H PRN 05/26/18 05/26/18 History [Hydrocodone-Acetamin 5-325 mg] Pregabalin CAP(*) [Lyrica CAP(*)] 75 mg PO BID 05/26/18 05/26/18 History Sitagliptin Phosphate [Januvia] 100 mg PO DAILY 05/26/18 05/26/18 History DOXYcycline CAP(*) [DOXYcycline 100 mg PO BID #120 cap 05/31/18 Rx 100MG CAP(*)] Insulin Glargine,Hum.rec.anlog 50 mg SUBCUT DAILY #0 05/31/18 05/26/18 Rx [Basaglar Kwikpen U-100] Home Medications Medication Instructions Recorded Confirmed Type Lisinopril TAB* [Prinivil TAB 10 20 mg PO DAILY 10/15/17 09/04/18 History MG*] Atorvastatin* [Lipitor 20 MG*] 40 mg PO BEDTIME 05/26/18 09/04/18 History Hydrocodone/Acetaminophen 1 tab PO Q8H PRN 05/26/18 09/04/18 History [Hydrocodone-Acetamin 5-325 mg] Amitriptyline TAB* [Elavil TAB*] 25 mg PO BEDTIME 09/04/18 09/04/18 History Fluticasone-Salmeterol 250-50* 1 puff INH BID 09/04/18 09/04/18 History [Advair Diskus 250-50*] Insulin Regular, Human [Humulin R 125 units SUBCUT BID 09/04/18 09/04/18 History U-500 Kwikpen] Ipratropium/Albuterol Sulfate 1 neb INH Q6H PRN 09/04/18 09/04/18 History [Iprat-Albut 0.5-3(2.5) mg/3 ml] Umeclidin/Vilant 62.5 MDI(NF) 1 puff INH DAILY 18 09/04/18 History [ANORO 62.5/25 Ellipta DEVICE (NF)] - History Of Current Complaint Hx Obtained From: Patient, Family/Acetylene Burner - daughter and Hx Last Menstrual Period: unknown Onset/Duration: Lasting Hours - 13:30 today, Still Present, Worse Since - 16:30 Timing: Constant Severity Initially: Severe Severity Currently: Severe Character: Confused, Lethargic, Other - tremulous Aggravating: Other - new insulin pen Alleviating: Nothing Associated Signs & Symptoms: Decreased Level of Conciousness Related History: Insulin Requiring, Neuropathy - Allergies/Home Medications Allergies/Adverse Reactions: Allergies Allergy/AdvReac Type Severity Reaction Status Date / Time latex Allergy Hives Verified 05/26/18 10:30 miconazole Allergy Blisters Verified 05/26/18 10:30 Home Medications: Home Medications Amitriptyline TAB* [Elavil TAB*] 25 mg PO BEDTIME 09/04/18 [History Confirmed ] Fluticasone-Salmeterol 250-50* [Advair Diskus 250-50*] 1 puff INH BID 09/04/18 [ History Confirmed 09/04/18] Insulin Regular, Human [Humulin R U-500 Kwikpen] 125 units SUBCUT BID 09/04/18 [ History Confirmed 09/04/18] Ipratropium/Albuterol Sulfate [Iprat-Albut 0.5-3(2.5) mg/3 ml] 1 neb INH Q6H PRN 09/04/18 [History Confirmed 09/04/18] Umeclidin/Vilant 62.5 MDI(NF) [ANORO 62.5/25 Ellipta DEVICE (NF)] 1 puff INH DAILY 09/04/18 [History Confirmed 09/04/18] PMH/Surg Hx/FS Hx/Imm Hx Previously Healthy: No Endocrine/Hematology History: Reports: Hx Diabetes Denies: Hx Anticoagulant Therapy, Hx Blood Disorders, Hx Blood Transfusions, Hx Bone Marrow Disease, Hx Thyroid Disease, Hx Anemia, Hx Unexplained Bleeding Cardiovascular History: Reports: Hx Hypertension Denies: Hx Pacemaker/ICD, Other Cardiovascular Problems/Disorders Respiratory History: Reports: Hx Chronic Obstructive Pulmonary Disease (COPD) - DX ON 10/2016, Other Respiratory Problems/Disorders - HYPOXIA, USES O2 AT 2.5 L NC PRN Denies: Hx Asthma GI History: Denies: Hx Ulcer, Other GI Disorders History: Reports: Hx Kidney Infection, Other Problems/Disorders - URINARY RETENTION Denies: Hx Dialysis, Hx Renal Disease Musculoskeletal History: Reports: Hx Arthritis - BILATERAL HANDS, BACK, Hx Back Problems, Other Musculoskeletal History - INCARCERATED RIGHT INGUINAL HERNIA- 2017.LEFT BIG TOE HARDWARE TO BE REMOVED Sensory History: Reports: Hx Contacts or Glasses - GLASSES, Hx Vision Problem - Blurriness Denies: Hx Eye Injury, Hx Eye Prosthesis, Hx Glaucoma, Hx Legally Blind, Hx Macular Degeneration, Hx Deafness, Hx Hearing Aid, Hx Hearing Problem, Other Sensory Impairments Opthamlomology History: Reports: Hx Contacts or Glasses - GLASSES, Hx Vision Problem - Blurriness Denies: Hx Eye Injury, Hx Eye Prosthesis, Hx Glaucoma, Hx Legally Blind, Hx Macular Degeneration, Other Sensory Impairments Neurological History: Reports: Hx Peripheral Neuropathy, Other Neuro Impairments /Disorders - Numbness and tingling Denies: Hx Dementia, Hx Seizures Psychiatric History: Reports: Hx Anxiety, Hx Depression Denies: Hx Panic Disorder - Surgical History Surgery Procedure, Year, and Place: LEFT FOOT BIG [id number]. HERNIA REPAIR 10/15/16 INCARCERATED INDIRECT INGUINAL HERNIA Hx Anesthesia Reactions: No Infectious Disease History: No Infectious Disease History: Denies: Hx Hepatitis, Hx Human Immunodeficiency Virus (HIV), History Other Infectious Disease, Traveled Outside the [place] in Last 30 Days - Family History Known Family History: Positive: Diabetes - Social History Lives: With Family Alcohol Use: None Hx Substance Use: Yes Substance Use Type: Reports: None, Prescribed Hx Tobacco Use: Yes Smoking Status (MU): Former Smoker Type: Cigarettes Amount Used/How Often: 1 PACK PER 3 DAYS Have You Smoked in the Last Year: Yes Review of Systems Positive: Other - low blood sugar. Negative: Fever Negative: Sore Throat Negative: Chest Pain Negative: Shortness Of Breath, Cough Negative: Nausea Negative: dysuria Musculoskeletal: Negative - neck pain Positive: Other - Petechiae on lower extremities, abraisons on her left foot Neurological: Other - tremulous Psychological: Other - irritable, stating "just let me sleep" All Other Systems Reviewed And Are Negative: Yes Physical Exam - Summary Physical Exam Summary: Appearance: ill-appearing, no pain distress, well-nourished, eyes closed, drowsy Skin: Petechiae on bilateral lower extremities. She has lesions on left great toe and left fourth toe that are blistered and bruised and abraded/ open and not weeping Head: Normal Head/Face inspection, atraumatic Eyes: Pupils are 3-mm and reactive ENT: Normal inspection Neck: Supple, no nodes, no JVD Respiratory: Lungs clear, normal breath sounds, no respiratory distress Cardio: RRR, No murmur, pulses normal, brisk capillary refill Abdomen: Soft, nontender Bowel sounds: Present Musculoskeletal: Strength Intact/ROM intact, no calf tenderness, no edema. left foot with wounds as above Psychological: irritable, saying just let me sleep Neuro: Patient is drowsy, needs tactile stimulation to stay alert, is tremulous , no tonic clonic activity, oriented to name and place, moves all extremities, facial symmetry GSC: 14 Triage Information Reviewed: Yes Vital Signs On Initial Exam: Initial Vitals Temp Pulse Resp BP Pulse Ox 97.2 F 70 16 121/74 98 09/04/18 16:58 09/04/18 16:58 09/04/18 16:58 09/04/18 16:58 09/04/18 16:58 Vital Signs Reviewed: Yes - Mallard Coma Scale Best Eye Response: 3 - To Speech Best Motor Response: 6 - Obeys Commands Best Verbal Response: 5 - Oriented Coma Scale Total: 14 Diagnostics - Vital Signs Vital Signs Temp Pulse Resp BP Pulse Ox 09/04/18 16:58 97.2 F 70 16 121/74 98 - Laboratory Result Diagrams: 09/04/18 17:41 09/04/18 17:41 Lab Statement: Any lab studies that have been ordered have been reviewed, and results considered in the medical decision making process. - Radiology CXR Radiology Interpretation Completed By: ED Physician Summary of Radiographic Findings: No active disease. Pending official report. - CT Brain CT Interpretation Completed By: Radiologist Summary of CT Findings: No acute intracranial abnormality. ED physician has reviewed this report. - EKG 1726 Cardiac Rate: NL - 63 BPM EKG Rhythm: Sinus Rhythm ST Segment: Non-Specific Ectopy: None EKG Comparison: No Significant Change - From previous EKG on 05/26/18 Summary of EKG Findings: NSR 63 BPM. Normal AVIVCT. Normal QTc. Left axis -30. No acute changes. Re-Evaluation - Re-Evaluation First Eval Re-Evaluation Time: 18:00 Comment: Patient's repeat glucose was 87 so we are adding D5 to her IV at 110 mL per hour. Patient is eating Second Eval Re-Evaluation Time: 18:19 Comment: Patient is drowsy again and wants to go to sleep. Her glucose was 87. She was given 25 g of glucose IV Third Eval Re-Evaluation Time: 18:40 Comment: Patient is still tremulous. Patient keeps saying "just let me sleep." She rouses to tactile stimulation. D10 hanging and increased from 100ml to 220ml /hr. Pt sent for CT brain for further eval of decreased mental status. Fourth Eval Re-Evaluation Time: 18:57 Comment: Patient's blood glucose is 226. She is awake and not tremulous. She is talking to Eda HODGE Diabetic Course/Dx - Course Course Of Treatment: 53 yo brittle DM on insulin with recent increase in insulin dose per pen. Pt took her insulin (?125 units humalog?, daughter brought in U-500 humalog pen) and pt has remained with glucoses 60-80's and decreased mental status, despite eating and IV glucose. With pt's open foot wounds, and petechiae on her lower extremities, there is concern that pt's hypoglycemia indicates sepsis, even though pt is not febrile and has not been hypotensive, as pt had critical presentation in May 2018 and has been noncompliant regarding antibiotics for the chronic left foot wound. Sepsis protocol initiated. IVNS later changed to D5, then D10 with persistent hypoglycemia and pt given total 50gm IV dextrose. Patient medications reviewed this visit. Allergies noted. EKG showed no significant change from previous EKG on 05/26/18. CXR showed no active disease per ED MD, unofficial. CT brain showed no acute intracranial abnormality per radiolgoist . Aware of lactic acid 3.1 at 18:17. In ED course, patient was given IV fluids and glucose IV. Discussed with Dr. Vazquez, hospitalist, regarding patient's case. The patient will be admitted to hospitalist and placed in ICU due to her brittle DM , persistent hypoglycemia, decreased mental status. At 18:41, Eda FIRE MANAGEMENT OFFICER came to evaluate the patient. Patient taken to CT at 18:45. At 19:04, Dr. Lam, hospitalist, made aware of patient's situation and he is present in the ED evaluating pt with AYESHA Veras. Patient is agreeable to admission. - Diagnoses Differential Dx: Diabetic Ketoacidosis, Hypoglycemia, Seizure, Sepsis Provider Diagnoses: Hypoglycemia, Petechiae, Open wound of left great toe, Hypokalemia, Lactic acidosis - Physician Notifications Discussed Care Of Patient With: Caitlin Vazquez Time Discussed With Above Provider: 18:19 Instructed by Provider To: Other - Dr. Vazquez, hospitalist, agrees to admit patient - Critical Care Time Critical Care Time: 30-74 min - 30 minutes Discharge - Sign-Out/Discharge Documenting (check all that apply): Patient Departure - Admit ICU All imaging exams completed and their final reports reviewed: No - prelim reading of CXR by ED physician only - Discharge Plan Condition: Improved Disposition: ADMITTED TO [facility] - Billing Disposition and Condition Condition: IMPROVED Disposition: Admitted to [facility] - Attestation Statements Document Initiated by Scribe: Yes Documenting Scribe: Melia Timmons Provider For Whom Scribe is Documenting (Include Credential): Hailey Head MD Scribe Attestation: Melia Blanca, scribed for Hailey Head MD on 09/05/18 at 0307. Scribe Documentation Reviewed: Yes Provider Attestation: The documentation as recorded by the chapinibMelia sanches accurately reflects the service I personally performed and the decisions made by me, Hailey Head MD Status of Scribe Document: Viewed
[2018-09-04] MEDS ORDERED: NS 0.9% 1000 ML*IV.FLUID IV ONE (17:22)
[2018-09-04 17:56] LABS: ABS Basophils 0 10^3/ul (0-0.2); ABS Eosinophils 0.1 10^3/ul (0-0.6); ABS Lymphocytes 1.1 10^3/ul (1.0-4.8); ABS Monocytes 0.6 10^3/ul (0-0.8); ABS Neutrophils 7.7 10^3/ul (1.5-7.7); ABS Nucleated RBC 0 10^3/ul; Hematocrit 38 % (35-47); Hemoglobin 12.5 g/dl (12.0-16.0); Lymphocyte % 11.5 %; Mean Corpuscular HGB Conc 33 g/dl (31-36); Mean Corpuscular Hemoglobin 27 pg (27-31); Mean Corpuscular Volume 80 fL (80-97); Mean Platelet Volume 7.8 fL (7.4-10.4); Nucleated Red Blood Cells % 0.1; Platelet Count 264 10^3/ul (150-450); Red Blood Count 4.72 10^6/ul (4.00-5.40); Red Cell Distribution Width 16 % (10.5-15); White Blood Count 9.5 10^3/ul (3.5-10.8)
--- OUTSIDE RECORDS SUMMARY | 2018-09-04 17:57 | XMS REPORT | Continuity of Care Document ---
:1965 External Reference #:[id number] Author Name Haydee Ku Care Team Providers Name Role Phone Zoya Patten MD Primary Care Physician Unavailable Payers Type Date Identification Numbers Payment Provider Subscriber Effective: 2016 Policy Number: [id number] Carroll Garcia [employer] Group Number: [id number] [address] PayID: [id number] [place] [address] Expires: 2016 Policy Number: [id number] [employer] Lesly Garcia Meche PayID: [id number] [address] [address] TARIK Julio [address] Advance Directives Type Date Description Status Comment [...] Member(s) Problem(s) Comments Father unknown Mother Unknown Siblings 4 Social History Type Date Description Comments Sex Unknown Marital Status Lives With , daughter, granddaughter Occupation unemployed Cigarette Use Pack Years - 62 ETOH Use Never used alcohol Recreational Drug Use Former Drug User crack codeine - last 2012 Tobacco Use Start: Unknown Patient is a former End: Unknown smoker Recreational Drug Use Denies Drug Use Smoking Status Reviewed: 09/01/18 Patient is a former smoker Exercise Type/Frequency Exercises sporadically clean house Allergies, Adverse Reactions, Alerts Date Description Reaction Status Severity Comments 10/20/2016 Aspirin migraine w/ generic Active nausea 10/20/2016 Latex Active break out 10/16/2016 NKDA Inactive Medications Medication Date Status Form Strength Qnty SIG Indications Ordering Provider Atorvastatin 09/01/ Active Tablets 40mg 90tab 40mg by Zavala Calcium 2018 s mouth daily MD Alma Rosa Lisinopril 09/01/ Active Tablets 20mg 90tab take 20 mg E11.65 Zavala 2018 s daily MD Alma Rosa Nebulizer 08/15/ Active Device 1unit use for J44.9 Gustavo 2018 s albuterol AYESHA Maldonado nebulized solution up to 4 times a day. Nebulizer 08/15/ Active Kit QS for use 4 J44.9 Gustavo Kit/Tubing/Mout 2018 times daily AYESHA Maldonado hpiece as needed Ipratropium 08/15/ Active Solution 0.5-2.5(3 90uni 1 vial in J44.9 Gustavo [place]/Albuter 2018 )mg/3ML ts nebulizer AYESHA Maldonado ol Sulfate four times a day as needed for asthma Advair Diskus 08/15/ Active Aerosol 250-50mcg 60uni inhale 1 J44.9 Gustavo 2018 /Dose ts puff by AYESHA Maldonado mouth twice a day Fluconazole 08/15/ Active Tablets 150mg 2tabs Take one B37.3 Gustavo 2018 tablet by AYESHA Maldonado mouth once for vaginal yeast infection. If symptoms persist after three days take the second tablet. Humulin R U-500 07/19/ Active Solution 500Unit/M 12ml 150 units Zavala Kwikpen 2018 Pen-Inject L twice daily MD Alma Rosa before meal Pioglitazone 06/09/ Active Tablets 15mg 90tab take 15mg E11.65 Zavala HCL 2018 s once daily MD Alma Rosa Precision Xtra 06/09/ Active Strips 100un use 3 times E11.65 Zavala Blood Glucose 2018 its daily for MD Alma Rosa Test Strips glucose testing Precision Xtra 06/09/ Active Device 1unit use with E11.65 Zavala Monitor 2018 s glucose/ket MD Alma Rosa one strips Hydrocodone-Jass 05/24/ Active Tablets 5-325mg 60tab take 1 E11.42 Gustavo taminophen 2018 s tablets AYESHA Maldonado every 8 hours for pain. Crutch Set 05/24/ Active Misc 1pair For use L03.116 Gustavo 2018 while AYESHA Maldonado ambulating Ventolin HFA 04/21/ Active Aerosol 108(90Bas 8unit 2 puffs by Gustavo 2017 e) s mouth four AYESHA Maldonado mcg/Act times a day as needed Cane 10/29/ Active Misc 1unit standard E11.42 Gustavo 2018 s adjustable AYESHA Maldonado height cane. Pen [place] 09/03/ Active Misc 31G X 5 100un use with Zavala 2016 mm its lantus subq MD Alma Rosa everyday Oxygen / Active Misc 2liters prn Unknown 0000 Fluconazole 07/11/ Hx Tablets 150mg 1tabs Take one B37.3 Zavala 2017 - tablet by MD Alma Rosa 08/15/ mouth once 2017 for vaginal yeast infection Novolog Mix 06/09/ Hx Supn (70-30)10 30ml use 70 E11.65 Zavala 70/30 Prefilled 2018 - 0Unit/ML units with MD Alma Rosa Flexpen 07/30/ first meal 2018 of the day, 50 units with last meal of the day Atorvastatin 06/09/ Hx Tablets 40mg 90tab 40mg by Zavala Calcium 2018 - s mouth daily MD Alma Rosa 2017 Anoro Ellipta 06/07/ Hx Aerosol 62.5-25mc 60uni 1 J44.9 Gustavo 2018 - g/Inh ts inhalation AYESHA Maldonado 08/15/ daily 2018 Lisinopril 06/02/ Hx Tablets 10mg 1 by mouth I10 Gustavo 2017 - every day AYESHA Maldonado 2017 Capsaicin 05/24/ Hx Cream 0.1% 42.50 Apply to E11. Gustavo 2018 - 0gm feet up to AYESHA Maldonado 08/15/ 4 times 2018 daily (DO Not Apply To Open Areas) Amitriptyline 05/24/ Hx Tablets 25mg 30tab 1 by mouth E11.42 Gustavo HCL 2018 - s every night AYESHA Maldonado 05/27/ at bedtime 2018 Amoxicillin/Cla 05/24/ Hx Tablets 875-125mg 20tab take one L03.116 Gustavo vulanate 2018 - s tablet q12 AYESHA Maldonado Potassium 05/27/ hours for 2018 10 days Sulfamethoxazol 05/24/ Hx Tablets 800-160mg 20tab 1 tablet by L03.116 Gustavo e/Trimethoprim 2018 - s mouth every AYESHA Maldonado DS 05/27/ 12 hours 2018 for 10 days Apidra Solostar 05/13/ Hx Solution 100Unit/M 15ml 8 units E11.42 Gustavo 2018 - Pen-Inject L prior to AYESHA Maldonado 05/13/ dinner 2018 Admelog 05/13/ Hx Solution 100Unit/M 3ml 8 units sc E11.42 Gustavo Solostar 2018 - Pen-Inject L prior to AYESHA Maldonado 06/07/ dinner 2018 Lyrica 04/21/ Hx Capsules 100mg 90cap 1 by mouth E11.42 Gustavo 2018 - s 3x a day as AYESHA Maldonado 04/21/ needed mdd 2018 3 mdd 3 mdd 3 mdd 3 Clobetasol 04/21/ Hx Solution 0.05% 50ml apply twice B85.2 Gustavo Propionate 2018 - daily to AYESHA Maldonado 08/15/ affected 2018 area. use for two weeks and then stop. Lyrica 04/21/ Hx Capsules 150mg 60cap take one E11.42 Gustavo 2018 - s capsule by AYESHA Maldonado 08/15/ mouth twice 2018 a day; maximum daily dose=2 Lyrica 12/15/ Hx Capsules 75mg 60cap 1 by mouth E11.42 Gustavo 2018 - s twice a day AYESHA Maldonado 2017 Novolog Flexpen 12/15/ Hx Solution 100Unit/M 30uni inject 8 E11.42 Gustavo 2018 - Pen-Inject L ts units prior AYESHA Maldonado 05/13/ to dinner. 2018 Lisinopril 12/15/ Hx Tablets 20mg 30tab 1 by mouth I10 Gustavo 2018 - s every day AYESHA Maldonado 2017 Gabapentin 10/29/ Hx Tablets 600mg 120ta 2 by mouth M25.571 Gustavo 2018 - bs 3 times a AYESHA Maldonado 01/03/ day 2018 Januvia 10/29/ Hx Tablets 100mg 30tab 1 by mouth E11.42 Gustavo 2018 - s every day AYESHA Maldonado 2017 Venlafaxine HCL 10/29/ Hx Caps ER [...] s twice a day AYESHA Maldonado 2017 Lidocaine 09/03/ Hx Cream 4% 90gm apply to E11.42 Gustavo 2017 - affected AYESHA Maldonado 06/07/ areas 3 or 2018 4 times daily Atorvastatin 08/09/ Hx Tablets 20mg 30tab take 1 Gustavo Calcium 2016 - s tablet at AYESHA Maldonado 06/09/ bedtime 2018 Lisinopril 08/09/ Hx Tablets 10mg 30tab 1 by mouth Gustavo 2017 - s every day AYESHA Maldonado 2017 Escitalopram 07/23/ Hx Tablets 20mg 30tab 1 by mouth F33.0 Gustavo Oxalate 2017 - s every day AYESHA Maldonado 2017 Hydroxyzine 07/23/ Hx Capsules 25mg 60cap 1-2 caps by F41.9 Gustavo Pamoate 2016 - s mouth four AYESHA Maldonado 05/24/ times a day 2018 as needed for anxiety Ciprofloxacin 07/23/ Hx Tablets 250mg 14tab take one Gustavo HCL 2016 - s tablet AYESHA Maldonado 07/30/ twice a day [...] 10mg 30tab 1/2 tab F33.0 Gustavo Oxalate 2017 - s once daily Erica, RESIDENT CARE AIDE 07/23/ for 1 week 2017 then increase to 1 tab daily. Basaglar 01/29/ Hx Solution 100Unit/M 30ml inject 50 E11.65 Gustavo Kwikpen 2017 - Pen-Inject L units Erica, RESIDENT CARE AIDE 06/09/ daily, to 2018 increase by 10 units every day BS over 300. Cymbalta 12/18/ Hx Caps DR 30mg 60cap 2 tabs M25.571 Khai 2017 - Part s daily , 06/18/ M.D. 2017 Nystatin-Triamc 12/16/ Hx Ointment 399744-7. 30uni apply to M25.571 Yohan inolone 2017 - 1Unit/GM- ts affected D. 06/18/ % area twice [facility], 2017 a day M.D. Ondansetron HCL 10/20/ Hx Tablets 8mg 60tab take 1 by Khai 2017 - s mouth Q 8 , 06/18/ hours prn M.D. 2017 Hydrocodone-Jass 10/20/ Hx Tablets 5-325mg 30tab 1 by mouth Khai taminophen 2017 - s every 4 , 06/18/ hours M.D. 2017 Novolog Penfill 10/20/ Hx Solution 100Unit/M 45ml 32 units E11.621 Khai 2017 - Cartridge L after meals , 06/18/ M.D. 2017 Advair Diskus 10/20/ Hx Aerosol 250-50mcg 60uni 1 puff Leif Ridley 2017 - /Dose ts twice daily , 06/18/ M.D. 2017 Montelukast 10/20/ Hx Tablets 10mg 30tab once daily Leif Ridley Sodium 2017 - s , 06/18/ M.D. 2017 Ventolin HFA 10/20/ Hx Aerosol 108(90Bas 8gm 2 puffs by Leif Ridley 2017 - e) mouth four , 06/18/ mcg/Act times a day M.D. 2017 as needed Lantus Solostar / Hx Solution 100Unit/M 30ml 50 units E11.621 Alaina 0000 - Pen-Inject L daily Malathi, 01/28/ M.D. 2016 Gabapentin / Hx Tablets 600mg 120ta 2 by mouth M25.571 Khai 0000 - bs 3 times a [place], day M.D. 2016 Cymbalta / Hx Caps DR 30mg 1 by mouth Khai 0000 - Part every day Genaro, 12/18/ M.DSharif 2016 Omeprazole / Hx Capsules DR 40mg once daily Sen 0000 - Jerel, 2016 Gabapentin / Hx Tablets 600mg take one Unknown 0000 - tablet by 06/07/ mouth three 2018 times a day Doxycycline / Hx Tablets 100mg 1 by mouth Unknown Hyclate 0000 - twice a day for 60 days 2017 Doxycycline / Hx Capsules 100mg Take One Unknown Hyclate 0000 - Capsule By 06/26/ Mouth Twice 2018 A Day Immunizations Description No Information Available Vital Signs Date Vital Result Comment 09/01/2018 12:00pm Height 63.5 inches 5'3.50" Weight 154.00 lb w/ shoes Heart Rate 66 /min BP Systolic Sitting 158 mmHg BP Diastolic Sitting 83 mmHg BMI (Body Mass Index) 26.8 kg/m2 08/15/2018 10:39am Height 63.5 inches 5'3.50" Weight 157.00 lb Heart Rate 64 /min BP Systolic 140 mmHg BP Diastolic 77 mmHg Body Temperature 97.3 F O2 % BldC Oximetry 98 % BMI (Body Mass Index) 27.4 kg/m2 07/11/2018 11:18am Height 63.5 inches 5'3.50" Weight 163.00 lb w/ shoes Heart Rate 57 /min BP Systolic Sitting 169 mmHg BP Diastolic Sitting 81 mmHg BMI (Body Mass Index) 28.4 kg/m2 06/09/2018 2:08pm Height 63.5 inches 5'3.50" Weight 172.00 lb w/ shoes Heart Rate 66 /min BP Systolic Sitting 150 mmHg BP Diastolic Sitting 83 mmHg BMI (Body Mass Index) 30.0 kg/m2 06/07/2018 10:43am Height 63.5 inches 5'3.50" Weight 172.00 lb Heart Rate 71 /min BP Systolic Sitting 130 mmHg BP Diastolic Sitting 62 mmHg Body Temperature 96.3 F O2 % BldC Oximetry 95 % BMI (Body Mass Index) 30.0 kg/m2 05/24/2018 11:46am Height 63.5 inches 5'3.50" Weight 159.00 lb Heart Rate 66 /min BP Systolic Sitting 120 mmHg BP Diastolic Sitting 68 mmHg Body Temperature 96.9 F O2 % BldC Oximetry 97 % BMI (Body Mass Index) 27.7 kg/m2 04/21/2018 10:01am Height 63.5 inches 5'3.50" Weight 166.00 lb Heart Rate 61 /min BP Systolic 106 mmHg BP Diastolic 63 mmHg Body Temperature 97.0 F O2 % BldC Oximetry 98 % BMI (Body Mass Index) 28.9 kg/m2 01/17/2018 2:10pm Weight 180.75 lb Heart Rate 74 /min BP Systolic 134 mmHg BP Diastolic 79 mmHg Body Temperature 97.5 F O2 % BldC Oximetry 99 % 12/15/2017 4:09pm Weight 169.00 lb Heart Rate 60 /min BP Systolic 146 mmHg BP Diastolic 90 mmHg Body Temperature 97.2 F O2 % BldC Oximetry 97 % 10/29/2017 9:24am Weight 172.50 lb Heart Rate 72 /min BP Systolic 132 mmHg BP Diastolic 84 mmHg Body Temperature 96.9 F O2 % BldC Oximetry 98 % 09/03/2017 1:40pm Weight 171.25 lb Heart Rate 68 /min BP Systolic Sitting 140 mmHg BP Diastolic Sitting 82 mmHg Body Temperature 96.5 F Pain Level 7 O2 % BldC Oximetry 98 % 07/23/2017 2:09pm Weight 168.50 lb Heart Rate 66 /min BP Systolic Sitting 136 mmHg BP Diastolic Sitting 80 mmHg O2 % BldC Oximetry 98 % 06/18/2017 11:25am Height 63 inches 5'3" Weight 175.00 lb Heart Rate 76 /min BP Systolic Sitting 138 mmHg BP Diastolic Sitting 86 mmHg O2 % BldC Oximetry 96 % BMI (Body Mass Index) 31.0 kg/m2 12/31/2016 11:17am Height 63 inches 5'3" Weight 165.00 lb Heart Rate 82 /min BP Systolic 134 mmHg BP Diastolic 80 mmHg Respiratory Rate 16 /min Body Temperature 96.1 F Pain Level 10 BMI (Body Mass Index) 29.2 kg/m2 12/18/2016 11:00am Weight 165.00 lb Heart Rate 68 /min BP Systolic Sitting 106 mmHg BP Diastolic Sitting 60 mmHg Respiratory Rate 15 /min Body Temperature 98.0 F O2 % BldC Oximetry 98 % 12/16/2016 1:32pm Height 63 inches 5'3" Weight 167.38 lb Heart Rate 72 /min BP Systolic Sitting 128 mmHg BP Diastolic Sitting 86 mmHg Respiratory Rate 14 /min Body Temperature 96.7 F BMI (Body Mass Index) 29.6 kg/m2 11/23/2016 4:04pm Height 63 inches 5'3" Weight 166.00 lb Heart Rate 72 /min BP Systolic Sitting 160 mmHg BP Diastolic Sitting 88 mmHg Respiratory Rate 14 /min Body Temperature 97.9 F BMI (Body Mass Index) 29.4 kg/m2 11/06/2016 10:31am Weight 142.38 lb Heart Rate 70 /min BP Systolic 120 mmHg BP Diastolic 78 mmHg Body Temperature 97.6 F O2 % BldC Oximetry 97 % 10/28/2016 3:51pm Heart Rate 78 /min BP Systolic 130 mmHg BP Diastolic 84 mmHg Respiratory Rate 18 /min Body Temperature 97.7 F 10/21/2016 3:38pm Height 64 inches 5'4" Weight 163.00 lb Heart Rate 74 /min BP Systolic 128 mmHg BP Diastolic 72 mmHg Respiratory Rate 16 /min Body Temperature 98.7 F BMI (Body Mass Index) 28.0 kg/m2 10/20/2016 10:44am Height 64 inches 5'4" Heart Rate 71 /min BP Systolic 130 mmHg BP Diastolic 80 mmHg Body Temperature 96.7 F O2 % BldC Oximetry 90 % 2.5 l/NC Results Test Date Facility Test Result H/L Range Note Laboratory test 07/18/2018 [facility] C-Peptide 2.2 ng/mL 1.1 - 4.4 1 finding [address] [place] [address] [phone] Insulin Level 28.9 mcIU/mL High 2.0-16.0 Glucose 476 mg/dL High 70-100 Laboratory test finding 07/11/2018 [facility] Hemoglobin A1c 13.4 High 5-7 Glucose Random 478 Ketones 0.3 Laboratory test finding 06/09/2018 [facility] Glucose Random 170 Urinalysis Profile 05/26/2018 [facility] Urine Color Yellow [address] [place] [address] [phone] Urine Appearance Cloudy Urine Specific [place] 1.025 N 1.010-1.030 Urine pH 7.0 N 5-9 Urine Urobilinogen Negative Negative Urine Ketones Negative Negative Urine Protein 2+(100 mg/dL) Abnormal Negative Urine Leukocytes Trace Abnormal Negative Urine Blood 1+ Abnormal Negative Urine Nitrite Positive Abnormal Negative Urine Bilirubin Negative Negative Urine Glucose 3+(>=500 mg/dL) Abnormal Negative Urine White Blood Cell 2+(11-20/hpf) Abnormal Absent Urine Red Blood Cell 2+(6-10/hpf) Abnormal Absent Urine Bacteria Absent Absent Urine Squamous Epithelial Cell Present Abnormal Absent Urine Culture And 05/26/2018 [facility] Urine Culture SEE RESULT [address] [place] [address] [phone] CBC Auto Diff 05/26/2018 [facility] White Blood 5.8 10^3/uL N 3.5-[address] Count .8 [place] [address] [phone] Red Blood Count 4.41 10^6/uL N 4.00-5.40 Hemoglobin 12.0 g/dL N 12.0-16.0 Hematocrit 37 % N 35-47 Mean Corpuscular Volume 83 fL N 80-97 Mean Corpuscular Hemoglobin 27 pg N 27-31 Mean Corpuscular HGB Conc 33 g/dL N 31-36 Red Cell Distribution Width 15 % N 10.5-15 Platelet Count 225 10^3/uL N 150-450 Mean Platelet Volume 8.3 um3 N 7.4-10.4 Abs Neutrophils 4.2 10^3/uL N 1.5-7.7 Abs Lymphocytes 1.1 10^3/uL N 1.0-4.8 Abs Monocytes 0.3 10^3/uL N 0-0.8 Abs Eosinophils 0.1 10^3/uL N 0-0.6 Abs Basophils 0 10^3/uL N 0-0.2 Abs Nucleated RBC 0 10^3/uL Granulocyte % 73.7 % N 38-83 Lymphocyte % 19.0 % Low 25-47 Monocyte % 4.4 % N 0-7 Eosinophil % 2.2 % N 0-6 Basophil % 0.7 % N 0-2 Nucleated Red Blood Cells % 0.3 Comp Metabolic Panel 05/26/2018 [facility] Sodium 133 mmol/L Low 135-[address] [place] [address] [phone] Potassium 4.2 mmol/L N 3.5-5.0 Chloride 95 mmol/L Low 101-111 Co2 Carbon Dioxide 30 mmol/L N 22-32 Anion Gap 8 mmol/L N 2-11 Blood Urea Nitrogen 14 mg/dL N 6-24 Creatinine 0.96 mg/dL High 0.51-0.95 BUN/Creatinine Ratio 14.6 N 8-20 Calcium 9.2 mg/dL N 8.6-10.3 Total Protein 6.7 g/dL N 6.4-8.9 Albumin 3.6 g/dL N 3.2-5.2 Globulin 3.1 g/dL N 2-4 Albumin/Globulin Ratio 1.2 N 1-3 Total Bilirubin 0.80 mg/dL N 0.2-1.0 Alkaline Phosphatase 121 U/L High 34-104 Alt 11 U/L N 7-52 Ast 12 U/L Low 13-39 Egfr Non- 61.5 >60 Egfr 74.4 >60 3 Glucose 667 mg/dL High 70-100 4 Laboratory test 05/26/2018 [facility] C Reactive 8.76 mg/L High <8.[address] [place] [address] [phone] Laboratory test 05/26/2018 [facility] Point of Care > 444 High 70-100 [address] Glucose mg/[place] [address] [phone] Wound 05/24/2018 [facility] Wound/Misc SEE RESULT 6 Culture/Sensi [address] [place] [address] Stain [phone] Laboratory test 05/24/2018 [facility] Hemoglobin A1c >14 High 5-7 finding CBC Auto Diff 05/16/2018 [facility] White Blood 7.7 N 3.5- 10.[address] Count 10^3/[place] [address] [phone] Red Blood Count 4.26 10^6/uL N 4.00-5.40 Hemoglobin 11.6 g/dL Low 12.0-16.0 Hematocrit 35 % N 35-47 Mean Corpuscular Volume 82 fL N 80-97 Mean Corpuscular Hemoglobin 27 pg N 27-31 Mean Corpuscular HGB Conc 33 g/dL N 31-36 Red Cell Distribution Width 15 % N 10.5-15 Platelet Count 268 10^3/uL N 150-450 Mean Platelet Volume 8.7 um3 N 7.4-10.4 Abs Neutrophils 4.5 10^3/uL N 1.5-7.7 Abs Lymphocytes 2.6 10^3/uL N 1.0-4.8 Abs Monocytes 0.4 10^3/uL N 0-0.8 Abs Eosinophils 0.2 10^3/uL N 0-0.6 Abs Basophils 0 10^3/uL N 0-0.2 Abs Nucleated RBC 0 10^3/uL Granulocyte % 58.0 % N 38-83 Lymphocyte % 33.4 % N 25-47 Monocyte % 5.5 % N 0-7 Eosinophil % 2.7 % N 0-6 Basophil % 0.4 % N 0-2 Nucleated Red Blood Cells % 0.1 Urine Microalbumin 05/16/2018 [facility] Urine Creatinine 511.74 mg/dL Random [address] [place] [address] [phone] Ur Microalbumin (mg/L) 1196.9 Urine Microalbumin/Creatinine 233.8 High <31 Comp Metabolic Panel 05/16/2018 [facility] Sodium 139 mmol/L N 135-[address] [place] [address] [phone] Potassium 3.5 mmol/L N 3.5-5.0 Chloride 101 mmol/L N 101-111 Co2 Carbon Dioxide 28 mmol/L N 22-32 Anion Gap 10 mmol/L N 2-11 Glucose 111 mg/dL High 70-100 Blood Urea Nitrogen 28 mg/dL High 6-24 Creatinine 1.47 mg/dL High 0.51-0.95 BUN/Creatinine Ratio 19.0 N 8-20 Calcium 8.8 mg/dL N 8.6-10.3 Total Protein 6.3 g/dL Low 6.4-8.9 Albumin 3.7 g/dL N 3.2-5.2 Globulin 2.6 g/dL N 2-4 Albumin/Globulin Ratio 1.4 N 1-3 Total Bilirubin 0.50 mg/dL N 0.2-1.0 Alkaline Phosphatase 89 U/L N 34-104 Alt 13 U/L N 7-52 Ast 16 U/L N 13-39 Egfr Non- 37.6 >60 Egfr 45.5 >60 7 Lipid Profile 05/16/2018 [facility] Triglycerides 172 mg/dL 8 (Trig/Chol/HDL) [address] [place] [address] [phone] Cholesterol 194 mg/dL 9 HDL Cholesterol 57.3 mg/dL 10 LDL Cholesterol 102 mg/dL 11 Laboratory test 05/16/2018 [facility] Vitamin B12 538 pg/mL N 180-914 [address] [place] [address] [phone] Ua Routine 07/23/2017 [facility] Ua Specific 1.025 [place] Ua PH 5 Ua Color dark yellow Ua Appera cloudy Ua WBC positive Ua Protein 500 Ua Glucose 1000 Ua Ketones negative Ua Bilirubin small Ua Urobilinogen normal Ua Nitrite negative Ua Occult Blood 250 Urine Culture And 07/23/2017 [facility] Urine Culture SEE RESULT [address] [place] [address] [phone] Laboratory test 06/18/2017 [facility] Hemoglobin A1c 12.6 High 5-7 finding Laboratory test 12/18/2016 [facility] Hemoglobin A1c 14.0 High 5-7 finding Comp Metabolic 11/30/2016 [facility] Sodium 131 mmol/L Low 133 - Panel [address] [place] [address] [phone] Potassium 4.3 mmol/L N 3.5-5.0 Chloride 96 mmol/L Low 101-111 Co2 Carbon Dioxide 31 mmol/L N 22-32 Anion Gap 4 mmol/L N 2-11 Blood Urea Nitrogen 9 mg/dL N 6-24 Creatinine 0.89 mg/dL N 0.51-0.95 BUN/Creatinine Ratio 10.1 N 8-20 Calcium 9.3 mg/dL N 8.6-10.3 Total Protein 6.5 g/dL N 6.4-8.9 Albumin 3.3 g/dL N 3.2-5.2 Globulin 3.2 g/dL N 2-4 Albumin/Globulin Ratio 1.0 N 1-3 Total Bilirubin 1.50 mg/dL High 0.2-1.0 Alkaline Phosphatase 96 U/L N 34-104 Alt 11 U/L N 7-52 Ast 12 U/L Low 13-39 Egfr Non- 67.4 N >60 Egfr 86.7 N >60 14 Glucose 557 mg/dL High 70-100 Laboratory test 11/30/2016 [facility] C Reactive 2.40 mg/L N < 5.00 [address] [place] [address] [phone] 1 Test Performed by: [facility] [address], [place] [address] 2 SEE RESULT BELOW Name: LESLY GILES : [address]: Wilber Galarza DO Acct: [id number] Unit: [id number] AGE: 52 Location: ICU [id number] Re05/27/18 SEX: F Status: ADM IN SPEC: [id number] ASHLEY: 05/26/[address] [facility] [address]: Oziel Frank MD REQ: [id number] RECD: 05/26/18 STATUS: CORAZON PIZANO DR: Gustavo Maldonado RESIDENT CARE AIDE _ SOURCE: URINE SPDESC: ORDERED: Urine Culture Procedure Result Reported Site Urine Culture Final 05/28/18- 827 ML Organism 1 ESCHERICHIA COLI [place] Count >100,000 (Many) CFU/ML 1. ESCHERICHIA COLI M.I.C. RX --------- ------ Ampicillin >=32 R Cefazolin <=4 S Cefepime <=1 S Ceftriaxone <=1 S Ciprofloxacin <=0.25 S Gentamicin <=1 S Levofloxacin <=0.12 S Meropenem <=0.25 S Nitrofurantoin <=16 S Tetracycline 2 S Pipercillin/Tazobactam <=4 S Trimethoprim/Sulfamethoxazole >=320 R Amoxicillin/Clavulanic Acid 4 S Aztreonam <=1 S Contact the Microbiology Department for any additional antibiotic reporting. * ML - Main Lab . END OF REPORT DEPARTMENT OF PATHOLOGY, [address] [place] [address] Renaldo Santos M.D. Director [facility] # [id number] 3 Because ethnic data is not always readily [...] 15-29 5 Kidney failure <15 (or dialysis) 4 Critical Result [id number] Called to [id number] at: 11:07:06 by:[id number] Read back by:[email or web address] Sill Worker: [id number] 6 SEE RESULT BELOW Name: LESLY GILES : [address]: Gustavo Maldonado NP Acct: [id number] Unit: [id number] AGE: 52 Location: [facility] Re05/24/18 SEX: F Status: REG REF SPEC: [id number] ASHLEY: 05/24/18-[address]: Gustavo Maldonado NP REQ: [id number] RECD: 05/24/18 STATUS: COMP _ SOURCE: TOE SPDESC: ORDERED: Culture Stain COMMENTS: [id number] Specimen Description Left great toe Procedure Result Reported Site Wound/Misc Gram Stain Final 05/25/18- 0821 ML 1+ Epithelial Cells 1+ Neutrophils 4+ Gram Positive Cocci 1+ Gram Negative Bacilli Wound/Misc Culture Final 05/26/18- 1009 ML Organism 1 STAPHYLOCOCCUS AUREUS Quantity 3+ Organism 2 NORMAL EB Quantity 1+ 1. STAPHYLOCOCCUS AUREUS M.I.C. RX --------- ------ Penicillin 0.12 S Clindamycin <=0.25 S Erythromycin <=0.25 S Gentamicin <=0.5 S Linezolid 2 S Oxacillin 0.5 S * Quinupristin/Dalfopristin <=0.25 S Rifampin <=0.5 S Tetracycline <=1 S Doxycycline - Deduced S * Minocycline - Deduced S Trimethoprim/Sulfamethoxazole <=10 S CONTINUED ON NEXT PAGE DEPARTMENT OF PATHOLOGY, [address] [place] [address] Renaldo Santos M.D. Director [facility] # [id number] Patient: LESLY GILSE [id number] (Continued) Specimen: [id number] Collected: 05/24/18 Received: 05/24/18 (Continued) Procedure Result Reported Site Wound/Misc Culture Final (continued) 05/26/18- 100 1. STAPHYLOCOCCUS AUREUS (continued) M.I.C. RX --------- ------ Vancomycin <=0.5 S Imipenem-Deduced S * Ampicillin/Sulbactam-Deduced S Cefazolin-Deduced S * These antibiotics are not available in the [facility] Formulary Contact the Microbiology Department for any additional antibiotic reporting. * ML - Main Lab . END OF REPORT DEPARTMENT OF PATHOLOGY, [address] [place] [address] Renaldo Santos M.D. Director [facility] # [id number] 7 Because ethnic data is not always readily [...] 15-29 5 Kidney failure <15 (or dialysis) 8 Desirable: <150 Borderline High: 150-199 High: 200-499 Very High: >500 9 Desirable: <200 Borderline High: 200-239 High: >239 10 Low: <40 Desirable: 40-60 High: >60 11 Desirable: <100 Near Optimal: 100-129 Borderline High: 130-159 High: 160-189 Very High: >189 12 Normal Range 180 to 914 Indeterminate Range 145 to 180 Deficient Range <145 13 SEE RESULT BELOW Name: LESLY GILES : [address]: Gustavo Maldonado NP Acct: [id number] Unit: [id number] AGE: 52 Location: [facility] Re07/23/17 SEX: F Status: REG REF SPEC: [id number] ASHLEY: 07/23/17-[address] [facility] [address]: Gustavo Maldonado NP REQ: [id number] RECD: 07/23/17-1809 STATUS: COMP _ SOURCE: URINE [place] HOSPITAL: ORDERED: Urine Culture COMMENTS: [id number] Urine Source: Random Procedure Result Reported Site Urine Culture Final 07/25/17- 0842 ML Organism 1 ESCHERICHIA COLI [place] Count >100,000 (Many) CFU/ML 1. ESCHERICHIA COLI [...] antibiotic reporting. * ML - MAIN LAB ([facility]) . END OF REPORT * ML=Testing performed at Main Lab DEPARTMENT OF PATHOLOGY, [address] [place] [address] Renaldo Santos M.D. Director [facility] # [id number] 14 Because ethnic data is not always readily [...] 15-29 5 Kidney failure <15 (or dialysis) 15 Acute inflammation: >10.00 Procedures Date Code Description Status 05/27/2018 51859 EKG, Interpretation Only Completed 05/27/2018 18556 EEG Recording Awake & Asleep Completed 05/27/2018 64516 ECHO Transthorasic Realtime 2D W Doppler & Color Flow Completed Hosp 05/27/2018 09862 Insert Non-Tunneled Venous Catether Completed 05/27/2018 32597 Endo-Trachial Tube Completed 05/16/2018 21353 Diffusing Capacity Completed 05/16/2018 08341 Plethysmography Determination Lung Volumes & Per Completed Airway Resist 05/16/2018 90865 Pulmonary Function><Bronchodil Completed 11/02/2017 [id number] Diabetic Retinal Eye Exam Completed 06/18/2017 [id number] Diabetic Retinal Eye Exam Completed 10/27/2016 47627 Removal Devitalization Tissue Wound Less Than Equal 20 Completed Square CM 10/12/2016 07673 EKG, Interpretation Only Completed 10/12/2016 12874 Repair Hernia Inguinal > 5Yrs, Incarcerated Or Completed Strangulated 10/12/2016 68136 Repair Hernia Inguinal > 5Yrs, Incarcerated Or Completed Strangulated Encounters Type Date Location Provider Dx Diagnosis Office Visit 08/15/2018 [facility] Internal Gustavo Maldonado NP J44.9 Chronic obstructive 10:40a Medicine - pulmonary disease, [place] unspecified S91.102S Unsp opn wnd left great toe w/o damage to nail, sequela B37.3 Candidiasis of vulva and vagina Office Visit 07/11/2018 [facility] [address], E11.65 Type 2 diabetes 10:40a Endocrinology of MD mellitus with [facility] hyperglycemia B37.3 Candidiasis of vulva and vagina Office Visit 06/09/2018 [facility] [address], E11.65 Type 2 diabetes 2:00p Endocrinology of MD mellitus with [facility] hyperglycemia E78.5 Hyperlipidemia, unspecified Office Visit 06/07/2018 10:40a [facility] Internal Gustavolauren Maldonado, S91.102S Unsp opn wnd Medicine - RESIDENT CARE AIDE left great toe [place] w/o damage to nail, sequela J44.9 Chronic obstructive pulmonary disease, unspecified E11.42 Type 2 diabetes mellitus with diabetic polyneuropathy I10 Essential (primary) hypertension E78.5 Hyperlipidemia, unspecified Office Visit 05/31/2018 9:24a [facility] Yohan Iqbal E11.621 Type 2 Infectious Tom Ruggiero diabetes Diseases mellitus with foot ulcer L97.521 Non-prs chronic ulcer oth prt l foot limited to brkdwn skin L03.115 Cellulitis of right lower limb E11.65 Type 2 diabetes mellitus with hyperglycemia Office Visit 05/31/2018 [facility] E11.65 Type 2 diabetes 11:03a Assoc,kika Palmer M.D. mellitus with Hospitalists hyperglycemia E11.621 Type 2 diabetes mellitus with foot ulcer L97.529 Non-pressure chronic ulcer oth prt left foot w unsp severity E11.641 Type 2 diabetes mellitus with hypoglycemia with coma N39.0 Urinary tract infection, site not specified B96.20 Unsp Escherichia coli as the cause of diseases classd elswhr Office Visit 05/30/2018 11:03a [facility] Xochitl Hohn, E11.621 Type 2 Asskika singer M.D. 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 Hospitalists of insulin E11.641 Type 2 diabetes mellitus with hypoglycemia with coma E11.621 Type 2 diabetes mellitus with foot ulcer L97.529 Non-pressure chronic ulcer oth prt left foot w unsp severity N39.0 Urinary tract infection, site not specified B96.20 Unsp Escherichia coli as the cause of diseases classd elswhr Office Visit 05/28/2018 11:02a [facility] Wilber Galarza, J96.00 Acute respiratory DO failure, unsp w hypoxia or hypercapnia N17.9 Acute kidney failure, unspecified R53.83 Other fatigue M86.172 Other acute osteomyelitis, left ankle and foot L97.529 Non-pressure chronic ulcer oth prt left foot w unsp severity E11.621 Type 2 diabetes mellitus with foot ulcer B96.20 Unsp Escherichia coli as the cause of diseases classd elswhr N39.0 Urinary tract infection, site not specified Office 05/27/2018 [facility] Yoly Chanel MD G93.40 Encephalopathy, Visit 7:00a Clinic unspecified Office 05/27/2018 [facility] Roxane Delgado R40.20 Unspecified coma Visit 11:01a Asskika singer II, Hospitalists M.D. J96.00 Acute respiratory failure, unsp w hypoxia or hypercapnia R00.1 Bradycardia, unspecified I95.9 Hypotension, unspecified R29.2 Abnormal reflex Office Visit 05/27/2018 11:02a [facility] Wilber Galarza, J96.00 Acute respiratory DO failure, unsp w hypoxia or hypercapnia E11.641 Type 2 diabetes mellitus with hypoglycemia with coma N17.9 Acute kidney failure, unspecified I95.9 Hypotension, unspecified R00.1 Bradycardia, unspecified Office Visit 05/26/2018 [facility] Kandis Gustafsonx, E11.65 Type 2 diabetes 11:01a Assoc,pc RESIDENT CARE AIDE mellitus with Hospitalists hyperglycemia L97.429 Non-prs chronic ulcer of left heel and midfoot w unsp severt E11.621 Type 2 diabetes mellitus with foot ulcer N39.0 Urinary tract infection, site not specified I10 Essential (primary) hypertension Office Visit 05/24/2018 11:40a [facility] Internal Gustavo Maldonado, Z79.84 [facility] ( current) Medicine - RESIDENT CARE AIDE use of oral [place] hypoglycemic drugs E11.42 Type 2 diabetes mellitus with diabetic polyneuropathy L03.116 Cellulitis of left lower limb S91.102S Unsp opn wnd left great toe w/o damage to nail, sequela Office Visit 04/21/2018 10:20a [facility] Internal Gustavo Maldonado, E11.42 Type 2 diabetes Medicine - RESIDENT CARE AIDE mellitus with [place] diabetic polyneuropathy I10 Essential (primary) hypertension R09.02 Hypoxemia B85.2 Pediculosis, unspecified Office Visit 01/17/2018 2:00p [facility] Internal Gustavo Maldonado, E11.42 Type 2 diabetes Medicine - RESIDENT CARE AIDE mellitus with [place] diabetic polyneuropathy F33.0 Major depressive disorder, recurrent, mild I10 Essential (primary) hypertension Office Visit 12/15/2017 4:00p [facility] Internal Gustavo Maldonado, E11.42 Type 2 diabetes Medicine - RESIDENT CARE AIDE mellitus with [place] diabetic polyneuropathy M79.672 Pain in left foot I10 Essential (primary) hypertension Office Visit 10/29/2017 9:00a [facility] Internal Gustavo Maldonado, E11.42 Type 2 diabetes Medicine - RESIDENT CARE AIDE mellitus with [place] diabetic polyneuropathy F33.0 Major depressive disorder, recurrent, mild B85.0 Pediculosis due to Pediculus humanus capitis Office Visit 09/03/2017 1:40p [facility] Internal Gustavo Maldonado, E11.42 Type 2 diabetes Medicine - RESIDENT CARE AIDE mellitus with [place] diabetic polyneuropathy R19.7 Diarrhea, unspecified Office Visit 07/23/2017 2:00p [facility] Gustavo Maldonado, F33.0 Major depressive Medicine - RESIDENT CARE AIDE disorder, [place] recurrent, mild F41.9 Anxiety disorder, unspecified R35.0 Frequency of micturition Office Visit 06/18/2017 11:00a [facility] Internal Gustavo Maldonado, E11.40 Type 2 diabetes Medicine - RESIDENT CARE AIDE mellitus with [place] diabetic neuropathy, unsp Z13.220 Encounter for screening for lipoid disorders F33.0 Major depressive disorder, recurrent, mild Office Visit 12/31/2016 11:00a Orthopedic Kael Keene M25.571 Pain in right Services Of Jinny Banerjee MD ankle and joints of right foot M76.61 Achilles tendinitis, right leg Office Visit 12/18/2016 11:00a [facility] Del Lam M25.571 Pain in right Medicine - M.DSharif ankle and [place] joints of right foot E11.40 Type 2 diabetes mellitus with diabetic neuropathy, unsp Office Visit 12/16/2016 2:20p [facility] Teresa Iqbal M25.571 Pain in right Infectious Tom Ruggiero ankle and Diseases joints of right foot Office Visit 11/23/2016 4:20p [facility] Teresa Iqbal E11.40 Type 2 Infectious Tom Ruggiero diabetes Diseases mellitus with diabetic neuropathy, unsp R21 Rash and other nonspecific skin eruption Office Visit 11/06/2016 10:40a Addi [facility] E11.621 Type 2 diabetes Milind Lam M.D. 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 obstructive [place] pulmonary disease, unspecified R09.02 Hypoxemia K40.40 Unil inguinal hernia, w gangrene, not specified as recurrent E11.8 Type 2 diabetes mellitus with unspecified complications E11.40 Type 2 diabetes mellitus with diabetic neuropathy, unsp Office Visit 10/15/2016 [facility] Xochitl Palmer, K56.69 Other intestinal 12:28p kika Shaffer M.D. obstruction Hospitalists E11.42 Type 2 diabetes mellitus with diabetic polyneuropathy Office Visit 10/14/2016 [facility] E11.42 Type 2 diabetes 12:28p kika Shaffer M.D. mellitus with Hospitalists diabetic polyneuropathy K56.69 Other intestinal obstruction [facility] K56.69 Other intestinal 12:27p kika Shaffer NP obstruction Hospitalists E13.10 Oth diabetes mellitus with ketoacidosis without coma Office 10/12/2016 [facility] Serafin E11.42 Type 2 diabetes Visit 12:26p kika Shaffer PA mellitus with Hospitalists diabetic polyneuropathy K56.69 Other intestinal obstruction Office Visit 10/12/2016 [facility] Serjio S. K40.30 Unil inguinal 7:00a [facility] MD Keisha hernia, w obst, w/o gangr, not spcf as recur Office Visit 05/15/2015 [facility] Axel Mercado, 599.0 UTI Urinary 8:19a kika Shaffer M.D. Tract Infection Hospitalists Site Not Spec 250.02 Diabetes Mellitus W/O Compl Type II Or Unspec Type Uncontrol Plan of Treatment Future Appointment(s):10/05/2018 1:40 pm - Lucas tS MD at [facility]11/15/2018 11:40 am - Gustavo Maldonado NP at [facility] Internal Medicine [facility]09/01/[address] MDE11.65 Type 2 diabetes mellitus with hyperglycemiaNew Medication:Lisinopril 20 mg - take 20 mg dailyFollow up:4 weeksInstructions:1. Increase insulin U-500 to 125 units twice daily with food. 2. Reduce carbohydrate intake in the foods you eat. 3. Restart lisinopril 20mg once daily. 4. Restart atorvastatin 40mg once daily. 5. Return in 1 month.B37.3 Candidiasis of vulva and cfscakM30.5 Hyperlipidemia, unspecified
[2018-09-04 18:12] LABS: Albumin 3.5 g/dL (3.2-5.2); Albumin/Globulin Ratio 1.1 (1-3); BUN/Creatinine Ratio 14.7 (8-20); C Reactive Protein 3.76 mg/L (<8.01); Calcium 9.5 mg/dL (8.6-10.3); EGFR Non-African American 52.9 (>60); Globulin 3.2 g/dL (2-4); Potassium 3.2 mmol/L (3.5-5.0); Total Bilirubin 0.8 mg/dL (0.2-1.0); Total Protein 6.7 g/dL (6.4-8.9)
[2018-09-04] MEDS: Dextrose 50% Syringe 50 ML* 25 GM/50 ML SYRINGE IV PUSH ONE ×2 (18:33→18:41)
[2018-09-04 18:37] LABS: Erythrocyte Sed Rate 34 mm/Hr (0-30)
[2018-09-04 18:45] LABS: Activated Partial Thrombo Time 25.2 seconds (26.0-36.3); Fibrinogen 383.2 mg/dL (110.8-404.3); INR 0.8 (0.77-1.02)
[2018-09-04] MEDS ORDERED: Naloxone* 0.4 MG/ML 1 ML VIAL IV PUSH ONE (18:47)
[2018-09-04] MEDS ORDERED: D5W 1000 ML BAG* 1,000 ML IV SCH (19:00)
[2018-09-04] MEDS ORDERED: D10W 1000 ML BAG* 1,000 ML IV SCH ×2 (19:00→21:30)
[2018-09-04] MEDS ORDERED: Acetaminophen TAB* 325 MG PO PRN (19:52)
[2018-09-04] MEDS ORDERED: Vancomycin(*) 1,500 MG in NS 0.9% 250 ML* 250 ML IVPB ONE (19:57)
[2018-09-04] MEDS ORDERED: Dextrose 50% Syringe 50 ML* 25 GM/50 ML SYRINGE IV PUSH PRN (19:59)
[2018-09-04] MEDS ORDERED: NS 0.9% 1000 ML* 1,000 ML IV SCH ×2 (20:00→20:13)
[2018-09-04] MEDS ORDERED: Vancomycin 1500 MG IV - x ONCE IVPB ONE ×2 (20:00)
[2018-09-04] MEDS ORDERED: Vancomycin per Pharmacy* NOTE FOLLOW UP SCH (20:00)
[2018-09-04] MEDS ORDERED: Albuterol/Ipratropium NEB.SOL* Albuterol 2.5 MG/Ipratropium 0.5 MG 3 ML INH PRN (20:00)
[2018-09-04] MEDS ORDERED: Vancomycin(*) 1,000 MG in NS 0.9% 250 ML* 250 ML IVPB ONE (20:29)
[2018-09-04] MEDS: KCL 20 MEQ/100 ML IVPREMIX* 20 MEQ/100 ML BAG IV SCH (22:18)
[2018-09-04] MEDS: Atorvastatin* 20 MG TAB PO SCH (22:18)
[2018-09-04] MEDS: Heparin VIAL(*) 5000 UNITS/ML VIAL (FIVE THOUSAND) SUBCUT SCH (22:18)
[2018-09-04] MEDS: Mometasone/Formoter 200/5 MDI INH SCH (23:39)
--- NOTE | 2018-09-04 23:52 | HP ---
CC: KAY Nair * HISTORY AND PHYSICAL: DATE OF ADMISSION: 09/04/18 PROVIDER: Eda Rincon NP PRIMARY CARE PROVIDER: KAY Nair ATTENDING PHYSICIAN WHILE IN THE HOSPITAL: Dr. Khai Lam * (dictated by Eda Rincon NP) CHIEF COMPLAINT: 1. Altered mental status. 2. Hypoglycemia. HISTORY OF PRESENT ILLNESS: Ms. Mcgregor is a 53-year-old female with a past medical history significant for diabetes, type 2; hypertension; peripheral neuropathy; COPD; arthritis; anxiety; depression, who presented to the emergency room with low blood sugar. Per the daughter, the patient reports that she was not feeling well today. She checked her sugar at approximately 10: 30 this morning and her sugar read high on her meter, so she took her dose of U- 500 insulin 125 units at approximately 11 a.m. The daughter said that she went to check on her approximately 1:30 and checked her blood sugar and it was 84. She attempted to have the patient eat. The patient ate a few bites and said she was tired, so she went to lie down. The daughter checked her blood sugar again approximately an hour later and the blood sugar was 60. At that time, the patient was shaking and fatigued, so the daughter called the ambulance, who brought the patient to the emergency room. The patient had episodes of increased lethargy in the emergency room. Her blood sugar was rechecked, it was found to be low. The patient was given D50 of 2 amps and had D10 in the emergency room, which increased her blood sugar and then approximately 2 hours later, the patient again had another episode of low blood sugar with a reading of 84. The patient was feeling shaky. Again, she had D10 running and became more sleepy, so at that time, she got another amp of D50 and that was just a total of 2 amps she received in the emergency room. The patient herself on evaluation is awake and alert, oriented x3. She denies any nausea, vomiting, or diarrhea. She denies any abdominal pain, denies any chest pain, denies any shortness of breath, denies any cough or congestion. She denies any rhinorrhea, sore throat. She does report increased urination. She denies any visual complaints, dysphagia, arthralgias, myalgias, or rashes. She does have an open wound to her left great toe and blistering to the 4th toe on the left foot. The patient reports the left toe wound has been there for several months. She was recently admitted in May of 2018. At that time, the toe wound was questionable for osteomyelitis and the patient was prescribed antibiotics for 6 weeks due to having hardware on the toe, but the patient did not complete those antibiotics. Due to her continuing episodes of hypoglycemia and altered mental status, we were asked to see and evaluate her for admission. PAST MEDICAL HISTORY: Significant for: 1. Type 2 diabetes. 2. Hypertension. 3. COPD. She does wear 2.5 L of oxygen at h.s. and as needed. 4. Peripheral neuropathy. 5. Arthritis. 6. Anxiety. 7. Depression. PAST SURGICAL HISTORY: 1. Left foot surgery with a juan carlos in the great toe. 2. Kidney stone removal. MEDICATIONS: Home medications include: 1. Hydrocodone/acetaminophen 5/325 one tablet t.i.d. and the patient's last dose was 9:30 to 10 o'clock this morning. 2. Anoro 1 puff daily. 3. U-500 insulin 125 units subcu b.i.d., which was recently increased on . 4. Advair Diskus 250/50 one puff b.i.d. 5. Albuterol neb 1 neb q.6 hours as needed for shortness of breath. 6. Amitriptyline 25 mg p.o. at bedtime. 7. Lisinopril 20 mg p.o. daily. 8. Atorvastatin 40 mg p.o. at bedtime. ALLERGIES: She has allergies to LASIX and MICONAZOLE. FAMILY HISTORY: Unknown as the patient was adopted. SOCIAL HISTORY: The patient quit smoking, prior to that she had [id number] history of smoking. She does report marijuana use in the last week. Denies any cocaine or other illicit drug use. She denies any alcohol use. She is currently disabled. She lives with her and children. Her and daughter, Mónica, are her surrogate decision makers in the event, she is unable to make her own decision. She is a full code. REVIEW OF SYSTEMS: There has been no documented fever. There has been no loss of appetite. She denies any chest pain or edema. Denies cough, congestion, shortness of breath, or hemoptysis. Denies any nausea, vomiting, diarrhea, or abdominal pain. Denies any gross hematuria or dysuria. She does report increased urination, but no burning with urination. Denies focal weakness. Denies any visual complaints. No dysphagia, arthralgias, myalgias, rashes, or lesions. Denies any psychosis or anxiety. PHYSICAL EXAMINATION GENERAL: At this time, Ms. Mcgregor is a 53-year-old female. She is alert and oriented, sitting on the stretcher in the emergency room. She is in no acute distress. HEENT: Head is atraumatic, normocephalic. Eyes: EOMs are intact. Sclerae are anicteric and not pale. Oral mucosa appeared to be moist. NECK: Supple. LUNGS: Clear to auscultation bilaterally. No wheezes, rales, or rhonchi. CARDIAC: S1, S2. Regular rate and rhythm. ABDOMEN: With mild tenderness. Bowel sounds are present x4. It is flat and soft. MUSCULOSKELETAL: There is no clubbing or cyanosis. She does have an open wound to the left great toe and purple blister to the left 5th toe. NEUROLOGIC: She is awake, alert, and oriented x3. Handgrips are equal. Speech is clear. Thought process is intact. No gross focal deficits were seen. SKIN: As above. She does have a nonspecific red rash to bilateral lower extremities, flat. ASSESSMENT AND PLAN: Ms. Mcgregor is a 53-year-old female with past medical history significant for diabetes, hypertension, peripheral neuropathy, chronic obstructive pulmonary disease, arthritis, anxiety, and depression, who presented to the emergency room with episodes of hypoglycemia and altered mental status. We were asked to admit her due to her re-occurring episodes of hypoglycemia. 1. Hypoglycemia. I suspect this is related to this patient's recent increase of U- 500 insulin from 100 to 125 b.i.d. U-500 insulin has a duration of 13 to 24 hours. At this time, we will place her on hourly Accu-Checks. We will continue D10 at 200 cc/hour. I will give her one more liter bolus of normal saline. We will adjust the D10 as able based on blood sugars. At this time, the patient and she is awake and alert and oriented. 2. Altered mental status. I suspect this could be related to her hypoglycemia. We will continue to monitor her fingersticks q. hourly. This also could be related to seizure activity. We will do neuro checks q.[address] her on seizure precautions. 3. Lactic acidosis. I suspect this is supposedly related to her hypoglycemia as she did have a reading at home at approximately 10:30 this morning of high on her monitor, which was above 500. This also could be associated with seizure activity. She did receive 2 L of fluid in the emergency room. I will give her another liter of bolus and repeat her lactic acid at 8:30. At this time, it does not appear to be related to sepsis. 4. Left great toe wound. The patient was seen in May and at that time there was concern for osteomyelitis of the toe due to hardware and she was placed on 6 weeks of p.o. antibiotics, which the patient did not take and did not complete her course of antibiotics. At this time, I will place her on vancomycin 50 mg/kg and dosing per pharmacy. I will culture the wound as it is open. We may want to consider further imaging of the toe to again rule out osteomyelitis as the patient does have hardware on the toe. 5. Hypokalemia. The patient does have a potassium of 3.2. I will give her 60 mEq of potassium IV and repeat a BMP in the a.m. 6. Acute kidney injury. I suspect this could be related to dehydration. She did receive 3 L of normal saline in the emergency room. I will repeat a BMP in the a.m. She has a urinalysis that is currently pending. If that is positive, I would consider getting renal ultrasound due to the bump in her creatinine. 7. Bilateral lower extremity rash. It is unclear the source of this rash, the rash is red and flat to bilateral lower extremities. We will just continue to monitor her rash. 8. Hypertension. The patient is currently on lisinopril. Due to acute kidney injury, I will hold lisinopril tonight and reevaluate this and resume lisinopril when able once her renal function improves. 9. Chronic obstructive pulmonary disease. The patient is not on any current acute exacerbation. I will continue her home medications as previously prescribed, Anoro and Advair Diskus. She can have albuterol nebs as needed for shortness of breath or wheezing. 10. Anxiety. I will continue her on her amitriptyline as previously prescribed. 11. Fluids, electrolytes, and nutrition. I will place her on consistent carb diet. 12. Code status. She is a full code. 13. DVT prophylaxis. I will place her on heparin subcu. TIME SPENT: Time spent on this admission was 75 minutes, greater than half of the time was spent with the patient and her family obtaining my history, performing my physical exam, and reviewing my plan of care, and implementing my plan of care. I have discussed this with my attending, Dr. Khai Lam, who is in agreement with my plan. EDA RINCON, ART DEALER [id number]/[facility] #: [id number] DEWEY
[2018-09-05] MEDS: KCL 20 MEQ/100 ML IVPREMIX* 20 MEQ/100 ML BAG IV SCH ×2 (01:10→03:15)
[2018-09-05 03:19] LABS: Urine Appearance Cloudy; Urine Bacteria 1+ (Absent); Urine Bilirubin Negative (Negative); Urine Blood Negative (Negative); Urine Color Yellow; Urine Glucose 3+(>=500 mg/dL) (Negative); Urine Ketones Negative (Negative); Urine Nitrite Negative (Negative); Urine Protein 2+(100 mg/dL) (Negative); Urine Red Blood Cell Trace(0-2/hpf) (Absent); Urine Specific Gravity 1.021 (1.010-1.030); Urine Urobilinogen Negative (Negative); Urine White Blood Cell 1+(6-10/hpf) (Absent)
--- NOTE | 2018-09-05 05:31 | PN ---
Progress Note - Progress Note Date of Service: 09/05/18 Note: FSG in 300s since 2 after D10 discontinued. FSG checks changed to q4hrs.
[2018-09-05 05:41] LABS: ABS Basophils 0 10^3/ul (0-0.2); ABS Eosinophils 0.1 10^3/ul (0-0.6); ABS Lymphocytes 1.6 10^3/ul (1.0-4.8); ABS Monocytes 0.4 10^3/ul (0-0.8); ABS Neutrophils 3.6 10^3/ul (1.5-7.7); ABS Nucleated RBC 0 10^3/ul; Eosinophil % 2.2 %; Hematocrit 34 % (35-47); Hemoglobin 11.1 g/dl (12.0-16.0); Lymphocyte % 27.1 %; Mean Corpuscular HGB Conc 33 g/dl (31-36); Mean Corpuscular Hemoglobin 26 pg (27-31); Mean Corpuscular Volume 80 fL (80-97); Mean Platelet Volume 8.3 fL (7.4-10.4); Nucleated Red Blood Cells % 0.1; Platelet Count 202 10^3/ul (150-450); Red Blood Count 4.24 10^6/ul (4.00-5.40); Red Cell Distribution Width 16 % (10.5-15); White Blood Count 5.8 10^3/ul (3.5-10.8)
[2018-09-05 05:57] LABS: BUN/Creatinine Ratio 15.2 (8-20); Calcium 7.7 mg/dL (8.6-10.3); EGFR Non-African American 64.4 (>60); Potassium 4.7 mmol/L (3.5-5.0)
[2018-09-05] MEDS: Heparin VIAL(*) 5000 UNITS/ML VIAL (FIVE THOUSAND) SUBCUT SCH ×3 (06:22→21:08)
--- NOTE | 2018-09-05 07:44 | PN ---
Subjective Date of Service: 09/05/18 Interval History: Ms. Mcgregor reports that she is feeling more awake but is just achy all over. She denies specific complaint including chest pain, SOB, nausea, or abdominal pain. Objective Active Medications: Acetaminophen (Tylenol Tab*) 650 mg PO Q4H PRN Albuterol/Ipratropium (Duoneb (Albuterol 2.5 Mg/Ipratropium 0.5 Mg)) 1 neb INH Q6H PRN Atorvastatin Calcium (Lipitor*) 40 mg PO BEDTIME SPRING Dextrose (D50w Syringe 50 Ml*) 25 gm IV PUSH .FOR FS < 60 - SS PRN Heparin Sodium (Porcine) (Heparin Vial(*)) 5,000 units SUBCUT Q8HR SPRING Vancomycin HCl 1,000 mg/ (Sodium Chloride) 250 mls @ 166.667 mls/hr IVPB Q12H [facility] Mometasone Furoate/Formoterol Fumar (Dulera 200/5 Mdi*) 2 puff INH BID [facility] Pharmacy Consult (Vancomycin Per Pharmacy*) 1 note FOLLOW UP .VANC PER PHARMACY [facility] Pharmacy Profile Note (Vancomycin Trough Check) 1 note FOLLOW UP 0930 ONE Umeclidinium/Vilanterol (Anoro 62.5/25 Ellipta Device (Nf)) 1 inh INH DAILY [facility] Vital Signs: Temp Pulse Resp BP Pulse Ox 97.9 F 58 15 132/73 95 09/05/18 00:00 09/05/18 07:15 09/05/18 07:15 09/05/18 07:15 09/05/18 07:15 Oxygen Devices in Use Now: None Appearance: Female lying in bed in NAD Eyes: No Scleral Icterus Respiratory: Symmetrical Chest Expansion and Respiratory Effort, Clear to Auscultation Cardiovascular: NL Sounds; No Murmurs; No JVD, No Edema Abdominal: NL Sounds; No Tenderness; No Distention Extremities: No Edema Skin: - - Dry black ulceration to base of left 1st toe, small black ulceration to 4th toe Neurological: Alert and Oriented x 3, NL Muscle Strength and Tone Nutrition: Taking PO's Result Diagrams: 09/05/18 05:15 09/05/18 05:15 Microbiology and Other Data: . Assess/Plan/Problems-Billing Assessment: Ms. Mcgregor is a 53 yo F with a PMH of insulin dependent Type 2 DM who was admitted on 09/04/18 with hypoglycemia after recent increase in home insulin dose. - Patient Problems (1) Hypoglycemia Comment: - Resolved. (2) Lactic acidosis Comment: - Resolved, secondary to hyperglycemia. (3) Diabetes mellitus, insulin dependent (IDDM), uncontrolled Comment: - BGs now in the 300s. - Start lantus 75 units this AM, readjust PM dose as needed (4) Foot ulcer Comment: - Plan for MRI left foot - ID consult pending - Continue vancomycin for now - Patient follows with Dr. Holt outpatient (5) COPD (chronic obstructive pulmonary disease) Comment: - No evidence of exacerbation (6) DVT prophylaxis Comment: - SQ heparin (7) Full code status Comment: Status and Disposition: Inpatient. Anticipate discharge to home when medically stable.
[2018-09-05] MEDS ORDERED: Insulin GLARGINE(*) 1 UNITS UNIT SUBCUT ONE (08:14)
[2018-09-05] MEDS ORDERED: Lisinopril TAB* 10 MG PO SCH (09:00)
[2018-09-05] MEDS ORDERED: Vancomycin(*) 1,000 MG in NS 0.9% 250 ML* 250 ML IVPB SCH (10:00)
[2018-09-05] MEDS: Umeclidin/Vilant 62.5 MDI 62.5/25 mcg 14 INH ELLIPTA DEVICE INH SCH (10:04)
[2018-09-05] MEDS: Mometasone/Formoter 200/5 MDI INH SCH ×2 (12:25→19:48)
--- NOTE | 2018-09-05 13:22 | CONS ---
CONSULTATION REPORT: DATE OF CONSULT: 09/05/18 REQUESTING PROVIDER: Svetlana Bishop NP. CONSULTING SERVICE: Infectious Diseases. REASON FOR CONSULTATION: Foot ulcer. IMPRESSION: 1. Plantar left toe ulcer, non-pressure related, chronic with underlying fixation hardware, which may be keeping the wound open. CRP is 0. There is no soft tissue infection. MRI in May showed no osteomyelitis. I do think it remains uninfected. 2. Peripheral neuropathy due to the diabetes. 3. Insulin-dependent diabetes with hypoglycemia. RECOMMENDATION: We will stop the antibiotics, have her follow up with her orthopedics as an outpatient to see about removal of the hardware, which may alleviate pressure on that area of the skin. She does have good pulse in that foot, so I do not think it is a vascular issue either. HISTORY OF PRESENT ILLNESS: This is a 53-year-old woman with diabetes, neuropathy, admitted with hypoglycemia. She was here back in May and at that time incidentally was found to have a left plantar foot ulcer, had a couple of weeks course of doxycycline for it that time, which has since resolved. She had decided not to follow up with me as an outpatient as she had good followup with her design engineering intern. The wound has been getting smaller with time but has stalled out and her design engineering intern has recommended hardware removal, which apparently has been waylaid by her variable blood sugars. She noted that her design engineering intern told her he would not remove hardware with these morbidities. She has no pain, redness, or swelling around the wound. She has numbness in both feet, which is longstanding. PAST MEDICAL HISTORY: 1. Insulin-dependent diabetes with peripheral neuropathy. 2. Hypertension. 3. COPD, with supplemental oxygen. 4. Arthritis. 5. Anxiety. 6. Depression. 7. Status post fixation of left great toe. 8. History of removal of nephrolithiasis. MEDICATIONS: 1. Tylenol. 2. Lipitor. 3. Heparin subcutaneous injection. 4. Insulin glargine. 5. Lisinopril. 6. Vancomycin. ALLERGIES: LASIX and MICONAZOLE. FAMILY HISTORY: Unknown, the patient was adopted. SOCIAL HISTORY: She lives in [place]. She has no travel, no sick contacts. Her daughter is her caregiver. REVIEW OF SYSTEMS: All negative except as noted above to 14-point review. PHYSICAL EXAM: Vital Signs: Temperature 37.2, heart rate 70, respiratory rate 15, blood pressure 147/82, oxygen saturation 97% on room air. In general, she is awake and not in distress. Neurologic: She is oriented x3. Follows all commands. No sensation to light touch in either foot. HEENT: There is no conjunctival hemorrhage. Oropharynx without lesions. Neck is supple without mass. Heart is regular rate and rhythm without murmurs, rubs, or gallops. Lungs are clear to auscultation bilaterally. Abdomen: Soft, nontender, nondistended. There are bowel sounds present. Skin: There is no rash or splinter hemorrhage. Musculoskeletal: There is no spine tenderness to palpation. Plantar left toe, there is a 2-mm opening of the skin with small callus. No surrounding erythema. There is no expressible fluid. DIAGNOSTIC STUDIES/LAB DATA: White blood cell count 5, hemoglobin 11, platelets 202. Creatinine 0.9. CRP 3. Procalcitonin 0. Please see impressions and recommendations outlined above, which I have discussed with Svetlana Bishop NP. Thank you for asking me to see Ms. Mcgregor in consultation. [id number]/[facility] #: [id number] DEWEY
[2018-09-05] MEDS ORDERED: Insulin LISPRO* 1 UNITS UNIT SUBCUT ONE (14:20)
[2018-09-05] MEDS ORDERED: Dextrose 50% Syringe 50 ML* 25 GM/50 ML SYRINGE IV PUSH PRN (14:20)
--- NOTE | 2018-09-05 14:24 | PN ---
Progress Note - Progress Note Date of Service: 09/05/18 - Endocrinology Note Note: [facility] Inpatient Courtesy Note Date of Note: 09/05/18 Reason for Admission: hypoglycemia ASSESSMENT: 53 yo F with severe insulin-resistant diabetes, now admitted for hypoglycemia and LEFT foot diabetic ulcer. PLAN: SUBJECTIVE: History of Present Illness: Past Medical History: Medications Prior to Admission: Inpatient Medications: Allergies/Intolerances: Social History: Family History: Review of Systems: OBJECTIVE: Vital Signs: General: alert, pleasant, oriented, no distress ENT: neck supple, no thyromegaly, no bruit is heard Chest: CTAB, no wheezing or crackles CV: RRR, no murmur Abdomen: soft, non-tender Extremities: no edema, distal pulses intact Skin: warm, dry, no rash Neuro: grossly intact motor/sensory in extremities Psych: restricted affect, pleasant Labs:
[2018-09-05] MEDS: Insulin LISPRO* 1 UNITS UNIT SUBCUT SCH ×2 (14:31→17:44)
[2018-09-05] MEDS ORDERED: HYDROcodone/ACETAMIN 5-325 MG* 1 TAB PO PRN (16:54)
[2018-09-05] MEDS: Insulin GLARGINE(*) 1 UNITS UNIT SUBCUT SCH (21:07)
[2018-09-05] MEDS: Atorvastatin* 20 MG TAB PO SCH (21:08)
[2018-09-06] MEDS: Heparin VIAL(*) 5000 UNITS/ML VIAL (FIVE THOUSAND) SUBCUT SCH (05:24)
[2018-09-06] MEDS: Insulin LISPRO* 1 UNITS UNIT SUBCUT SCH ×2 (07:36→12:12)
--- NOTE | 2018-09-06 07:48 | PN ---
Subjective Date of Service: 09/06/18 Interval History: Ms. Mcgregor denies complaint and is eager for discharge to home today. She is able to state her new insulin regimen and the plan for future episodes of hypoglycemia correctly. Objective Active Medications: Acetaminophen (Tylenol Tab*) 650 mg PO Q4H PRN Hydrocodone Bitart/Acetaminophen ([place] 5-325 Tab*) 1 tab PO Q8H PRN Albuterol/Ipratropium (Duoneb (Albuterol 2.5 Mg/Ipratropium 0.5 Mg)) 1 neb INH Q6H PRN Atorvastatin Calcium (Lipitor*) 40 mg PO BEDTIME SPRING Dextrose (D50w Syringe 50 Ml*) 25 gm IV PUSH .FOR FS < 60 - SS PRN Dextrose (D50w Syringe 50 Ml*) 12.5 gm IV PUSH .FOR FS < 60 - SS PRN Heparin Sodium (Porcine) (Heparin Vial(*)) 5,000 units SUBCUT Q8HR SPRING Insulin Glargine (Lantus(*)) 100 units SUBCUT BID SPRING Insulin Human Lispro (Humalog*) 0 units SUBCUT AC SPRING; Protocol Lisinopril (Prinivil Tab*) 20 mg PO DAILY SPRING Mometasone Furoate/Formoterol Fumar (Dulera 200/5 Mdi*) 2 puff INH BID SPRING Umeclidinium/Vilanterol (Anoro 62.5/25 Ellipta Device (Nf)) 1 inh INH DAILY SPRING Vital Signs: Temp Pulse Resp BP Pulse Ox 96.6 F 56 16 102/61 98 09/05/18 23:27 09/06/18 03:25 09/06/18 03:25 09/06/18 03:25 09/06/18 03:25 Oxygen Devices in Use Now: None Appearance: Female lying in bed in NAD Eyes: No Scleral Icterus Ears/Nose/Mouth/Throat: Mucous Membranes Moist Neck: Trachea Midline Respiratory: Symmetrical Chest Expansion and Respiratory Effort, Clear to Auscultation Cardiovascular: NL Sounds; No Murmurs; No JVD, No Edema Abdominal: NL Sounds; No Tenderness; No Distention Extremities: No Edema Skin: No Rash or Ulcers Neurological: Alert and Oriented x 3, NL Muscle Strength and Tone Nutrition: Taking PO's Result Diagrams: 09/05/18 05:15 09/05/18 05:15 Microbiology and Other Data: . Assess/Plan/Problems-Billing Assessment: Ms. Mcgregor is a 53 yo F with a PMH of difficult to control insulin dependent Type 2 DM who was admitted on 09/04/18 with hypoglycemia after recent increase in home insulin dose. - Patient Problems (1) Hypoglycemia Comment: - Resolved. (2) Lactic acidosis Comment: - Resolved, secondary to hyperglycemia. (3) Diabetes mellitus, insulin dependent (IDDM), uncontrolled Comment: - BGs now in the 200s. - Appreciate Dr. St's consult, switch to U-500 insulin 60units TID. - Will provide glucagon for hypoglycemia (4) Foot ulcer Comment: - Appreciate ID consult, no evidence of active infection - Antibiotics discontinued - Patient follows with Dr. Holt outpatient, Dr. Shaw suggests she may benefit from seeing ortho as well for consideration of removal of hardware. Will also provide information about accessing the wound clinic. (5) COPD (chronic obstructive pulmonary disease) Comment: - No evidence of exacerbation (6) DVT prophylaxis Comment: - SQ heparin (7) Full code status Comment: Status and Disposition: Inpatient. Discharge to home.
[2018-09-06] MEDS: Mometasone/Formoter 200/5 MDI INH SCH (08:02)
[2018-09-06] MEDS: Umeclidin/Vilant 62.5 MDI 62.5/25 mcg 14 INH ELLIPTA DEVICE INH SCH (08:31)
[2018-09-06] MEDS ORDERED: Lisinopril TAB* 10 MG PO SCH (09:00)
[2018-09-06] MEDS: Insulin GLARGINE(*) 1 UNITS UNIT SUBCUT SCH (09:18)
[2018-09-06] MEDS ORDERED: Vancomycin Trough Check NOTE FOLLOW UP ONE (09:30)
--- NOTE | 2018-09-06 12:10 | CONSULT ---
Consult Consult: [facility] Inpatient Consult Note Date of Consult: 09/06/18 Reason for Consult: diabetes Reason for Admission: hypoglycemia, LEFT foot ulcer ASSESSMENT: 53 yo F with severe insulin-resistant diabetes, now admitted for hypoglycemia and LEFT foot diabetic ulcer. Patient is tolerant of extremely high dose of insulin up to 100 units/dose and up to 3 units/kg/day, suggesting a severe form of insulin resistance. To address this, I have recently initiated therapy with U-500 concentrated insulin. However, her experience of critical hypoglycemia after recent increase in insulin dose from 100 units BID to 125 units BID demonstrates that she is capable of severe reductions in blood glucose with insulin doses greater than 80-100/units/dose. At this time, I do not suspect that she has developed an interfering antibody against insulin or insulin receptor as a cause of hypoglycemia. To address concerns of hypoglycemia , I recommend reduction in the U-500 insulin from 125 units BID (250 units/day) to 60 units TID-AC, representing a 33% decrease in total daily insulin dose. She was instructed to check BG before every insulin dose. I had a long discussion with patient's daughter Mónica Smalls, who has participated in her diabetes care for many years. The patient has used an insulin pump in the past, but not in >4 years. Both she and her daughter would like to resume insulin pump therapy, as they feel that his method of insulin delivery was far more effective for glycemic control than any insulin regimen that she has used since. Her lacks insight and ability to assist her with insulin therapy, although he would be willing to use glucagon for hypoglycemia, if this were to recur at home. PLAN: - decrease Lantus to 60 units BID while inpatient - start Humalog 20 units TID-AC while inpatient - upon discharge, restart U-500 60 units TID-AC - script for glucagon kit sent to patient's pharmacy for bystander use SUBJECTIVE: History of Present Illness: 53 yo F with T2DM and diabetic foot disease. Past Medical History: Ulcer of heel Urinary incontinence History of drug abuse, distant cocaine, active marijuana Diabetes mellitus Hypoxia Diabetic neuropathy Chronic obstructive lung disease Medications Prior to Admission: Lisinopril TAB* [Prinivil TAB 10 MG*] 20 mg PO DAILY 10/15/17 [History Confirmed 09/04/18] Atorvastatin* [Lipitor 20 MG*] 40 mg PO BEDTIME 05/26/18 [History Confirmed ] Hydrocodone/Acetaminophen [Hydrocodone-Acetamin 5-325 mg] 1 tab PO Q8H PRN 05/26 [History Confirmed 09/04/18] Amitriptyline TAB* [Elavil TAB*] 25 mg PO BEDTIME 09/04/18 [History Confirmed ] Fluticasone-Salmeterol 250-50* [Advair Diskus 250-50*] 1 puff INH BID 09/04/18 [ History Confirmed 09/04/18] Insulin Regular, Human [Humulin R U-500 Kwikpen] 125 units SUBCUT BID 09/04/18 [ History Confirmed 09/04/18] Ipratropium/Albuterol Sulfate [Iprat-Albut 0.5-3(2.5) mg/3 ml] 1 neb INH Q6H PRN 09/04/18 [History Confirmed 09/04/18] Umeclidin/Vilant 62.5 MDI(NF) [ANORO 62.5/25 Ellipta DEVICE (NF)] 1 puff INH DAILY 09/04/18 [History Confirmed 09/04/18] Inpatient Medications: Acetaminophen (Tylenol Tab*) 650 mg PO Q4H PRN PRN Reason: FEVER/PAIN Last Admin: 09/05/18 07:43 Dose: 650 mg Hydrocodone Bitart/Acetaminophen ([place] 5-325 Tab*) 1 tab PO Q8H PRN PRN Reason: PAIN Last Admin: 09/05/18 17:45 Dose: 1 tab Albuterol/Ipratropium (Duoneb (Albuterol 2.5 Mg/Ipratropium 0.5 Mg)) 1 neb INH Q6H PRN PRN Reason: SOB/WHEEZING Atorvastatin Calcium (Lipitor*) 40 mg PO BEDTIME SPRING Last Admin: 09/05/18 21:08 Dose: 40 mg Dextrose (D50w Syringe 50 Ml*) 25 gm IV PUSH .FOR FS < 60 - SS PRN PRN Reason: FS < 60 Dextrose (D50w Syringe 50 Ml*) 12.5 gm IV PUSH .FOR FS < 60 - SS PRN PRN Reason: FS < 60 Heparin Sodium (Porcine) (Heparin Vial(*)) 5,000 units SUBCUT Q8HR SPRING Last Admin: 09/06/18 05:24 Dose: 5,000 units Insulin Glargine (Lantus(*)) 100 units SUBCUT BID [facility] Last Admin: 09/06/18 09:18 Dose: 100 unit Insulin Human Lispro (Humalog*) 0 units SUBCUT AC [facility]; Protocol Last Admin: 09/06/18 12:12 Dose: Not Given Lisinopril (Prinivil Tab*) 20 mg PO DAILY [facility] Last Admin: 09/06/18 09:19 Dose: 20 mg Mometasone Furoate/Formoterol Fumar (Dulera 200/5 Mdi*) 2 puff INH BID [facility] Last Admin: 09/06/18 08:02 Dose: 2 puff Umeclidinium/Vilanterol (Anoro 62.5/25 Ellipta Device (Nf)) 1 inh INH DAILY [facility] Last Admin: 09/06/18 08:31 Dose: Not Given Allergies/Intolerances: latex, miconazle Social History: Lives with , remarried. Unemployed. Denies alcohol use, but endorses regular marijuana use. Family History: Non-contributory. Review of Systems: As above. She denies recent febrile illnesses. 10 system review normal. OBJECTIVE: Temp Pulse Resp BP Pulse Ox 98.1 F 54 14 128/63 99 09/06/18 07:38 09/06/18 07:38 09/06/18 07:38 09/06/18 07:38 09/06/18 07:38 General: alert, pleasant, oriented, no distress ENT: neck supple, no thyromegaly, no bruit is heard Chest: CTAB, no wheezing or crackles CV: RRR, no murmur Abdomen: soft, non-tender Extremities: no edema, distal pulses intact; LEFT great toe ulcer; left 4th toe blister Skin: warm, dry, no rash Neuro: grossly intact motor/sensory in extremities Psych: restricted affect, pleasant Labs: Glucose Results 09/05/18 02:00 386 09/05/18 03:00 342 09/05/18 04:00 363 09/05/18 05:00 341 09/05/18 07:35 337 - 75G 09/05/18 11:30 469 - 6L 09/05/18 16:30 248 09/05/18 21:30 218 - 100G 09/06/18 07:30 130 - 100G WBC 5.8 10^3/ul (3.5-10.8) 09/05/18 05:15 RBC 4.24 10^6/ul (4.00-5.40) 09/05/18 05:15 Hgb 11.1 g/dl (12.0-16.0) L 09/05/18 05:15 Hct 34 % (35-47) L 09/05/18 05:15 MCV 80 fL (80-97) 09/05/18 05:15 MCH 26 pg (27-31) L 09/05/18 05:15 MCHC 33 g/dl (31-36) 09/05/18 05:15 RDW 16 % (10.5-15) H 09/05/18 05:15 Plt Count 202 10^3/ul (150-450) 09/05/18 05:15 MPV 8.3 fL (7.4-10.4) 09/05/18 05:15 Neut % (Auto) 62.9 % 09/05/18 05:15 Lymph % (Auto) 27.1 % 09/05/18 05:15 Cassia % (Auto) 7.3 % 09/05/18 05:15 Eos % (Auto) 2.2 % 09/05/18 05:15 Baso % (Auto) 0.5 % 09/05/18 05:15 Absolute Neuts (auto) 3.6 10^3/ul (1.5-7.7) 09/05/18 05:15 Absolute Lymphs (auto) 1.6 10^3/ul (1.0-4.8) 09/05/18 05:15 Absolute Monos (auto) 0.4 10^3/ul (0-0.8) 09/05/18 05:15 Absolute Eos (auto) 0.1 10^3/ul (0-0.6) 09/05/18 05:15 Absolute Basos (auto) 0 10^3/ul (0-0.2) 09/05/18 05:15 Absolute Nucleated RBC 0 10^3/ul 09/05/18 05:15 Nucleated RBC % 0.1 09/05/18 05:15 ESR 34 mm/Hr (0-30) H 09/04/18 17:41 INR (Anticoag Therapy) 0.80 (0.77-1.02) 09/04/18 17:41 APTT 25.2 seconds (26.0-36.3) L 09/04/18 17:41 Fibrinogen 383.2 mg/dL (110.8-404.3) 09/04/18 17:41 Sodium 136 mmol/L (135-145) 09/05/18 05:15 Potassium 4.7 mmol/L (3.5-5.0) D 09/05/18 05:15 Chloride 107 mmol/L (101-111) 09/05/18 05:15 Carbon Dioxide 25 mmol/L (22-32) 09/05/18 05:15 Anion Gap 4 mmol/L (2-11) 09/05/18 05:15 BUN 14 mg/dL (6-24) 09/05/18 05:15 Creatinine 0.92 mg/dL (0.51-0.95) 09/05/18 05:15 Est GFR ( Amer) 77.9 (>60) 09/05/18 05:15 Est GFR (Non-Af Amer) 64.4 (>60) 09/05/18 05:15 BUN/Creatinine Ratio 15.2 (8-20) 09/05/18 05:15 Glucose 469 mg/dL (70-100) H 09/05/18 12:32 POC Glucose (mg/dL) 130 mg/dL (70-100) H 09/06/18 07:21 Lactic Acid 1.6 mmol/L (0.5-2.0) 09/04/18 21:10 Calcium 7.7 mg/dL (8.6-10.3) L 09/05/18 05:15 Total Bilirubin 0.80 mg/dL (0.2-1.0) 09/04/18 17:41 AST 15 U/L (13-39) 09/04/18 17:41 ALT 11 U/L (7-52) 09/04/18 17:41 Alkaline Phosphatase 90 U/L (34-104) 09/04/18 17:41 Total Creatine Kinase 64 U/L (10-223) 09/04/18 17:41 Troponin I 0.00 ng/mL (<0.04) 09/04/18 17:41 C-Reactive Protein 3.76 mg/L (<8.01) 09/04/18 17:41 B-Natriuretic Peptide 62 pg/mL (<=100) 09/04/18 17:41 Total Protein 6.7 g/dL (6.4-8.9) 09/04/18 17:41 Albumin 3.5 g/dL (3.2-5.2) 09/04/18 17:41 Globulin 3.2 g/dL (2-4) 09/04/18 17:41 Albumin/Globulin Ratio 1.1 (1-3) 09/04/18 17:41 Procalcitonin < 0.1 ng/mL (<0.6) 09/04/18 17:41 Urine Color Yellow 09/05/18 03:00 Urine Appearance Cloudy 09/05/18 03:00 Urine pH 5.0 (5-9) 09/05/18 03:00 Ur Specific [place] 1.021 (1.010-1.030) 09/05/18 03:00 Urine Protein 2+(100 mg/dl) (Negative) A 09/05/18 03:00 Urine Ketones Negative (Negative) 09/05/18 03:00 Urine Blood Negative (Negative) 09/05/18 03:00 Urine Nitrate Negative (Negative) 09/05/18 03:00 Urine Bilirubin Negative (Negative) 09/05/18 03:00 Urine Urobilinogen Negative (Negative) 09/05/18 03:00 Ur Leukocyte Esterase Negative (Negative) 09/05/18 03:00 Urine WBC (Auto) 1+(6-10/hpf) (Absent) A 09/05/18 03:00 Urine RBC (Auto) Trace(0-2/hpf) (Absent) 09/05/18 03:00 Ur Squamous Epith Cells Present (Absent) A 09/05/18 03:00 Urine Bacteria 1+ (Absent) A 09/05/18 03:00 Urine Glucose 3+(>=500 mg/dl) (Negative) A 09/05/18 03:00 Urine Ascorbic Acid * (Negative) A 09/05/18 03:00 Vancomycin Trough 5.6 mcg/mL 09/06/18 09:14 Influenza A (Rapid) Negative (Negative) 09/04/18 20:55 Influenza B (Rapid) Negative (Negative) 09/04/18 20:55
[2018-09-06 12:40] VITALS: BP 116/65
--- NOTE | 2018-09-06 22:45 | DS ---
CC: Gustavo Maldonado NP; Dr. Lucas St. * HOSPITAL MEDICINE DISCHARGE SUMMARY: DATE OF ADMISSION: 09/04/18 DATE OF DISCHARGE: 09/06/18 PRIMARY CARE PROVIDER: Gustavo Maldonado NP. DYNAMOMETER TESTER ENGINE: Lucas St MD. ATTENDING PHYSICIAN: Dr. Emily Colvin * (dictation provided by Svetlana Bishop NP ). PRIMARY DIAGNOSES: 1. Hypoglycemia. 2. Toxic metabolic encephalopathy. SECONDARY DIAGNOSES: 1. History of uncontrolled insulin-dependent type 2 diabetes. 2. Hyperlipidemia. 3. Hypertension. 4. Chronic obstructive pulmonary disease, 2.5 L of oxygen at bedtime. 5. Peripheral neuropathy. 6. Arthritis. 7. Anxiety. 8. Depression. 9. Chronic nonhealing diabetic foot ulcer to left great toe, followed by Dr. Luong. 10. Left foot surgery with a juan carlos in the great toe. 11. Kidney stone removal. MEDICATIONS AT THE TIME OF DISCHARGE: 1. Anoro Ellipta 1 puff inhaled daily. 2. U-500 insulin 60 units subcutaneously t.i.d. 3. Fluticasone/salmeterol 250/50 one puff inhaled b.i.d. 4. Ipratropium/albuterol sulfate 0.5/3 inhaled q.6 hours p.r.n. 5. Hydrocodone/acetaminophen 5/325 one tab p.o. q.8 hours p.r.n. 6. Amitriptyline 25 mg p.o. at bedtime. 7. Lisinopril 20 mg p.o. daily. 8. Atorvastatin 40 mg p.o. at bedtime. 9. Glucagon 1 mg IM p.r.n. hypoglycemia. HOSPITAL COURSE: Ms. Mcgregor is a 53-year-old female with a past medical history of [id number] diabetes, who presented to the hospital on 09/04/18 after an episode of hypoglycemia. Please see the dictated H and P from Eda Rincon NP for complete details. In brief, the patient has had a long-term history of [id number] diabetes. She has worked closely with Dr. Lucas St for adjustment of her insulin with recent adjustment to U-500 formulation of insulin at 125 units subcutaneously b.i.d. The patient thereafter developed hypoglycemia with altered mental status and presented to the emergency room on 09/04/18. In the emergency room, she had a blood sugar of approximately 60, but was quite lethargic. She was given D50 supplementation and admitted to the intensive care unit. Ms. Mcgregor's blood sugar responded well to dextrose replacement. She has been switched back over to Lantus while inpatient with blood sugars running in the 200s. I have had consultation with Dr. St while here in the hospital and appreciate his recommendations. He is now recommending that the patient try U- 500 insulin at 60 units 3 times a day and that she check her blood sugar before each administration and have glucagon available for IM administration in the event of an emergency. The patient will also be following up closely with Dr. St, outpatient for consideration of an insulin pump. Ms. Mcgregor has had a chronic nonhealing diabetic foot issue to her left great toe for sometime. She has followed with Dr. Luong with this outpatient. While she was here, I did have her see Dr. Shaw. At this time, he does not feel that it is actively infected. He recommended that the patient have followup with wound care center and also consider followup with orthopedic surgeons for consideration of removal of the hardware to alleviate pressure to that area of the skin and help with healing. The patient has been provided with information about the orthopedic services in [facility] as well as wound clinic. Ms. Mcgregor is medically stable for discharge to home. She will be following up with Gustavo Maldonado NP for continued management of her ongoing chronic medical problems as well as with support from Dr. St and has been recommended to follow up with the wound clinic, Dr. Luong and orthopedic services. DISPOSITION: Home. DIET: Low carb. ACTIVITY: As tolerated. FOLLOWUP PLANS: Please follow up with Dr. St, Gustavo Maldonado NP, Dr. Luong, the wound care clinic and orthopedic services. TIME SPENT: Approximately 60 minutes were spent on the discharge of this patient, more than half the time was spent with the patient at the bedside reviewing the events leading up to this hospitalization, performing the physical examination, and reviewing the plan of care. SVETLANA BISHOP NP [id number]/[facility] #: [id number] DEWEY
== END 2018-09-06 15:35 | disposition home or self-care (01) | DRG 380 ==
LOC: ED 16:50 → ICU 19:52 → MED 09-05 10:05
PROVIDERS: ADMIT Internal Medicine; ATTEND Internal Medicine
DX: E11.649 Type 2 diabetes mellitus with hypoglycemia without coma (principal); E87.2 Acidosis; R23.3 Spontaneous ecchymoses; T38.3X5A Adverse effect of insulin and oral hypoglycemic [antidiabetic] drugs, initial encounter; I10 Essential (primary) hypertension; J44.9 Chronic obstructive pulmonary disease, unspecified; M15.9 Polyosteoarthritis, unspecified; H53.8 Other visual disturbances; F41.9 Anxiety disorder, unspecified; F32.9 Major depressive disorder, single episode, unspecified; N17.9 Acute kidney failure, unspecified; R40.2362 Coma scale, best motor response, obeys commands, at arrival to emergency department; R40.2132 Coma scale, eyes open, to sound, at arrival to emergency department; E11.65 Type 2 diabetes mellitus with hyperglycemia; R21 Rash and other nonspecific skin eruption; R40.2252 Coma scale, best verbal response, oriented, at arrival to emergency department; E87.6 Hypokalemia; E86.0 Dehydration; E11.621 Type 2 diabetes mellitus with foot ulcer; L97.529 Non-pressure chronic ulcer of other part of left foot with unspecified severity; E11.42 Type 2 diabetes mellitus with diabetic polyneuropathy; Z56.0 Unemployment, unspecified; E78.5 Hyperlipidemia, unspecified; G92 Toxic encephalopathy; Y92.009 Unspecified place in unspecified non-institutional (private) residence as the place of occurrence of the external cause; Z83.3 Family history of diabetes mellitus; Z87.891 Personal history of nicotine dependence; Z99.81 Dependence on supplemental oxygen; Z87.442 Personal history of urinary calculi; Z88.8 Allergy status to other drugs, medicaments and biological substances; Z96.89 Presence of other specified functional implants; Z79.4 Long term (current) use of insulin; Z79.51 Long term (current) use of inhaled steroids
CPT/HCPCS: 36415; 70450; 71045; 74019; 80048; 80053; 80202; 81003; 81015; 82550; 82947; 83605; 83880; 84145; 84484; 85025; 85384; 85610; 85652; 85730; 86140; 87040; 87070; 87077; 87086; 87186; 87205; 87641; 93005; 94640; 99285; A9270-GY; J1644; J3370; J3480

== ENCOUNTER 2018-11-04 17:06 | Inpatient (IN) | payer OTHER ==
[2018-11-04 17:57] LABS: ABS Basophils 0 10^3/ul (0-0.2); ABS Eosinophils 0.1 10^3/ul (0-0.6); ABS Lymphocytes 1.3 10^3/ul (1.0-4.8); ABS Monocytes 0.4 10^3/ul (0-0.8); ABS Neutrophils 4.9 10^3/ul (1.5-7.7); ABS Nucleated RBC 0 10^3/ul; Eosinophil % 1.6 %; Hematocrit 36 % (35-47); Hemoglobin 11.7 g/dl (12.0-16.0); Lymphocyte % 19.9 %; Mean Corpuscular HGB Conc 32 g/dl (31-36); Mean Corpuscular Hemoglobin 26 pg (27-31); Mean Corpuscular Volume 81 fL (80-97); Nucleated Red Blood Cells % 0; Platelet Count 282 10^3/ul (150-450); Red Blood Count 4.45 10^6/ul (4.00-5.40); Red Cell Distribution Width 16 % (10.5-15); White Blood Count 6.7 10^3/ul (3.5-10.8)
[2018-11-04] MEDS ORDERED: NS 0.9% 1000 ML** 1,000 ML IV ONE (17:58)
[2018-11-04 18:14] LABS: ALT 10 U/L (7-52); AST 12 U/L (13-39); Albumin 3.2 g/dL (3.2-5.2); Alkaline Phosphatase 102 U/L (34-104); Anion Gap 7 mmol/L (2-11); BUN/Creatinine Ratio 19.8 (8-20); Blood Urea Nitrogen 17 mg/dL (6-24); C Reactive Protein 3.62 mg/L (<8.01); CO2 Carbon Dioxide 28 mmol/L (22-32); Calcium 8.6 mg/dL (8.6-10.3); Chloride 101 mmol/L (101-111); EGFR African American 84.2 (>60); EGFR Non-African American 69.6 (>60); Globulin 3.1 g/dL (2-4); Glucose 406 mg/dL (70-100); Potassium 3.5 mmol/L (3.5-5.0); Sodium 136 mmol/L (135-145); Total Protein 6.3 g/dL (6.4-8.9)
[2018-11-04] MEDS ORDERED: Insulin REGULAR(*) 1 UNITS UNIT SUBCUT ONE (18:31)
[2018-11-04 18:35] LABS: Creatine Kinase 41 U/L (10-223)
[2018-11-04 18:43] LABS: Alcohol < 10 mg/dL (<10)
--- NOTE | 2018-11-04 19:25 | ED ---
HPI Diabetic - HPI Summary HPI Summary: 53-year-old female presents with high blood sugar today. She states she has felt weak all day. she denies any chest pain. She admits to shortness of breath that is unchanged from baseline. States sugars have been running high although she has been taking her normal insulin. states she has issues controlling her sugars. She states she has a wound on left great toe that was suppose to be following up about but has been unable to. states that has not been able to get out of bed due to feeling so weak. she admits to dysuria. no fevers. denies any headache, sore throat or cough. - History Of Current Complaint Chief Complaint: EDDiabeticProb Time Seen by Provider: 11/04/18 17:42 Hx Last Menstrual Period: unknown - Allergies/Home Medications Allergies/Adverse Reactions: Allergies Allergy/AdvReac Type Severity Reaction Status Date / Time latex Allergy Hives Verified 05/26/18 10:30 miconazole Allergy Blisters Verified 05/26/18 10:30 PMH/Surg Hx/FS Hx/Imm Hx Endocrine/Hematology History: Reports: Hx Diabetes Denies: Hx Anticoagulant Therapy, Hx Blood Disorders, Hx Blood Transfusions, Hx Bone Marrow Disease, Hx Thyroid Disease, Hx Anemia, Hx Unexplained Bleeding Cardiovascular History: Reports: Hx Hypertension Denies: Hx Pacemaker/ICD, Other Cardiovascular Problems/Disorders Respiratory History: Reports: Hx Chronic Obstructive Pulmonary Disease (COPD) - DX ON 10/2016, Other Respiratory Problems/Disorders - HYPOXIA, USES O2 AT 2.5 L NC PRN Denies: Hx Asthma GI History: Denies: Hx Ulcer, Other GI Disorders History: Reports: Hx Kidney Infection, Other Problems/Disorders - URINARY RETENTION Denies: Hx Dialysis, Hx Renal Disease Musculoskeletal History: Reports: Hx Arthritis - BILATERAL HANDS, BACK, Hx Back Problems, Other Musculoskeletal History - INCARCERATED RIGHT INGUINAL HERNIA- 2017.LEFT BIG TOE HARDWARE TO BE REMOVED Sensory History: Reports: Hx Contacts or Glasses - GLASSES, Hx Vision Problem - Blurriness Denies: Hx Eye Injury, Hx Eye Prosthesis, Hx Glaucoma, Hx Legally Blind, Hx Macular Degeneration, Hx Deafness, Hx Hearing Aid, Hx Hearing Problem, Other Sensory Impairments Opthamlomology History: Reports: Hx Contacts or Glasses - GLASSES, Hx Vision Problem - Blurriness Denies: Hx Eye Injury, Hx Eye Prosthesis, Hx Glaucoma, Hx Legally Blind, Hx Macular Degeneration, Other Sensory Impairments Neurological History: Reports: Hx Peripheral Neuropathy, Other Neuro Impairments /Disorders - Numbness and tingling Denies: Hx Dementia, Hx Seizures Psychiatric History: Reports: Hx Anxiety, Hx Depression Denies: Hx Panic Disorder - Surgical History Surgery Procedure, Year, and Place: LEFT FOOT BIG TOE - [facility] - SCREWS 2009;. HERNIA REPAIR 10/15/16 INCARCERATED INDIRECT INGUINAL HERNIA; Hx Anesthesia Reactions: No Infectious Disease History: No Infectious Disease History: Denies: Hx Hepatitis, Hx Human Immunodeficiency Virus (HIV), History Other Infectious Disease, Traveled Outside the [place] in Last 30 Days - Family History Known Family History: Positive: Diabetes - Social History Alcohol Use: None Hx Substance Use: Yes Substance Use Type: Reports: None Hx Tobacco Use: Yes Smoking Status (MU): Former Smoker Type: Cigarettes Amount Used/How Often: 1 PACK PER 3 DAYS Have You Smoked in the Last Year: Yes Review of Systems Positive: Other - high blood sugar. Negative: Fever Negative: Chest Pain Negative: Shortness Of Breath Positive: Weakness All Other Systems Reviewed And Are Negative: Yes Physical Exam Triage Information Reviewed: Yes Vital Signs On Initial Exam: Initial Vitals Pulse BP Pulse Ox 69 176/92 99 11/04/18 17:13 11/04/18 17:13 11/04/18 17:13 Vital Signs Reviewed: Yes Appearance: Positive: Ill-Appearing Skin: Positive: Warm, Dry, Other - open area on left great toe with minimal erythema around the area Head/Face: Positive: Normal Head/Face Inspection Eyes: Positive: Normal, EOMI, MADONNA, Conjunctiva Clear ENT: Positive: Normal ENT inspection, Pharynx normal, TMs normal Respiratory/Lung Sounds: Positive: Clear to Auscultation, Breath Sounds Present Cardiovascular: Positive: Normal, RRR Abdomen Description: Positive: Nontender, Soft Bowel Sounds: Positive: Present Musculoskeletal: Positive: Limited @ - moves all extremities just decreased strength in all extremities., Other - good pulses Neurological: Positive: Sensory/Motor Intact, Alert, Oriented to Person Place, Time, CN Intact II-III Psychiatric: Positive: Normal Diagnostics - Vital Signs Vital Signs Temp Pulse Resp BP Pulse Ox 11/04/18 18:43 11 141/76 11/04/18 18:13 21 177/80 11/04/18 18:00 16 11/04/18 17:43 18 165/86 11/04/18 17:15 98.0 F 67 22 176/92 97 11/04/18 17:13 69 176/92 99 - Laboratory Lab Results: Lab Results 11/04/18 11/04/18 11/04/18 Range/Units 17:24 17:50 17:51 WBC 6.7 (3.5-10.8) 10^3/ul RBC 4.45 (4.00-5.40) 10^6/ul Hgb 11.7 L (12.0-16.0) g/dl Hct 36 (35-47) % MCV 81 (80-97) fL MCH 26 L (27-31) pg MCHC 32 (31-36) g/dl RDW 16 H (10.5-15) % Plt Count 282 (150-450) 10^3/ul MPV 8.0 (7.4-10.4) fL Neut % (Auto) 73.0 % Lymph % (Auto) 19.9 % Mora % (Auto) 5.3 % Eos % (Auto) 1.6 % Baso % (Auto) 0.2 % Absolute Neuts (auto) 4.9 (1.5-7.7) 10^3/ul Absolute Lymphs (auto) 1.3 (1.0-4.8) 10^3/ul Absolute Monos (auto) 0.4 (0-0.8) 10^3/ul Absolute Eos (auto) 0.1 (0-0.6) 10^3/ul Absolute Basos (auto) 0 (0-0.2) 10^3/ul Absolute Nucleated RBC 0 10^3/ul Nucleated RBC % 0 VBG pH (7.32-7.43) VBG pCO2 (41-51) mmHg VBG pO2 (35-45) mmHg VBG HCO3 (24-28) mmol/L VBG O2 Saturation (70-80) % VBG Base Excess (0.0-4.0) mmol/L Sodium (135-145) mmol/L Potassium (3.5-5.0) mmol/L Chloride (101-111) mmol/L Carbon Dioxide (22-32) mmol/L Anion Gap (2-11) mmol/L BUN (6-24) mg/dL Creatinine (0.51-0.95) mg/dL Est GFR ( Amer) (>60) Est GFR (Non-Af Amer) (>60) BUN/Creatinine Ratio (8-20) Glucose (70-100) mg/dL POC Glucose (mg/dL) 404 H* (70-100) mg/dL Lactic Acid 1.1 (0.5-2.0) mmol/L Calcium (8.6-10.3) mg/dL Magnesium Total Bilirubin (0.2-1.0) mg/dL AST (13-39) U/L ALT (7-52) U/L Alkaline Phosphatase (34-104) U/L Total Creatine Kinase (10-223) U/L Troponin I C-Reactive Protein (<8.01) mg/L Total Protein (6.4-8.9) g/dL Albumin (3.2-5.2) g/dL Globulin (2-4) g/dL Albumin/Globulin Ratio (1-3) TSH Serum Alcohol (<10) mg/dL 11/04/18 11/04/18 Range/Units 17:51 17:51 WBC (3.5-10.8) 10^3/ul RBC (4.00-5.40) 10^6/ul Hgb (12.0-16.0) g/dl Hct (35-47) % MCV (80-97) fL MCH (27-31) pg MCHC (31-36) g/dl RDW (10.5-15) % Plt Count (150-450) 10^3/ul MPV (7.4-10.4) fL Neut % (Auto) % Lymph % (Auto) % Mora % (Auto) % Eos % (Auto) % Baso % (Auto) % Absolute Neuts (auto) (1.5-7.7) 10^3/ul Absolute Lymphs (auto) (1.0-4.8) 10^3/ul Absolute Monos (auto) (0-0.8) 10^3/ul Absolute Eos (auto) (0-0.6) 10^3/ul Absolute Basos (auto) (0-0.2) 10^3/ul Absolute Nucleated RBC 10^3/ul Nucleated RBC % VBG pH 7.40 (7.32-7.43) VBG pCO2 44 (41-51) mmHg VBG pO2 < 38.0 (35-45) mmHg VBG HCO3 25.6 (24-28) mmol/L VBG O2 Saturation 65.6 L (70-80) % VBG Base Excess 2.0 (0.0-4.0) mmol/L Sodium 136 (135-145) mmol/L Potassium 3.5 (3.5-5.0) mmol/L Chloride 101 (101-111) mmol/L Carbon Dioxide 28 (22-32) mmol/L Anion Gap 7 (2-11) mmol/L BUN 17 (6-24) mg/dL Creatinine 0.86 (0.51-0.95) mg/dL Est GFR ( Amer) 84.2 (>60) Est GFR (Non-Af Amer) 69.6 (>60) BUN/Creatinine Ratio 19.8 (8-20) Glucose 406 H (70-100) mg/dL POC Glucose (mg/dL) (70-100) mg/dL Lactic Acid (0.5-2.0) mmol/L Calcium 8.6 (8.6-10.3) mg/dL Magnesium Pending Total Bilirubin 0.60 (0.2-1.0) mg/dL AST 12 L (13-39) U/L ALT 10 (7-52) U/L Alkaline Phosphatase 102 (34-104) U/L Total Creatine Kinase 41 (10-223) U/L Troponin I Pending C-Reactive Protein 3.62 (<8.01) mg/L Total Protein 6.3 L (6.4-8.9) g/dL Albumin 3.2 (3.2-5.2) g/dL Globulin 3.1 (2-4) g/dL Albumin/Globulin Ratio 1.0 (1-3) TSH Pending Serum Alcohol < 10 (<10) mg/dL Result Diagrams: 11/04/18 17:51 11/04/18 17:51 Lab Statement: Any lab studies that have been ordered have been reviewed, and results considered in the medical decision making process. - Radiology chest Radiology Interpretation Completed By: ED Physician Summary of Radiographic Findings: nad foot Radiology Interpretation Completed By: ED Physician Summary of Radiographic Findings: no bony erosion seen - EKG No standard instances Cardiac Rate: Bradycardia EKG Rhythm: Sinus Bradycardia ST Segment: Non-Specific - T wave inverision v1-V4 Summary of EKG Findings: sinus bradycardia, new T wave inversion V2-V4 Re-Evaluation - Re-Evaluation First Eval Change: Unchanged Comment: claims still weak after two liter of fluid. Second Eval Re-Evaluation Time: 21:17 Change: Unchanged Comment: discussed is having uti symptoms, discussed that patient feels too weak to walk Diabetic Course/Dx - Course Course Of Treatment: 53 year old female presents with high blood sugar and weakness today. she states she does get weak whenever her sugars are high but has never been this week. She denies any fevers. No chest pain shortness breath or bowel pain. Weakness is generalized. No cough. She states she has no open wound on her left foot that has had for some time. Not currently on antibiotics. denies any headache. on exam patient does not want to open eyes. does have a normal neuro exam but is slow to perform instructed tasks and has limited strength against gravity in all extremities. lungs CTA. has minimal erythema around open wound left great toe. xray toe read by me as normal. chest xray normal. ekg has t wave inverisions in V2, v3, V4 that is new. wbc normal. urinw shows uti. discussed with dr al who says should attempt to ambulate patient. attempted to ambulate patient and unable to do so so will get patient admitted. - Diagnoses Differential Dx: Hyperglycemia, Pneumonia, Sepsis Provider Diagnoses: Hyperglycemia, Weakness, UTI (urinary tract infection) Discharge - Sign-Out/Discharge Documenting (check all that apply): Patient Departure - Discharge Plan Condition: Good Disposition: ADMITTED TO [facility] Referrals: Zoya Patten MD [Primary Care Provider] - - Billing Disposition and Condition Condition: GOOD Disposition: Admitted to [facility]
[2018-11-04 19:26] LABS: Magnesium 1.8 mg/dL (1.9-2.7)
[2018-11-04 20:00] LABS: Influenza A Molecular NEGATIVE (Negative); Influenza B Molecular NEGATIVE (Negative)
[2018-11-04 20:06] LABS: TSH (Thyroid Stimulating Horm) 0.51 mcIU/mL (0.34-5.60)
[2018-11-04 21:15] LABS: Urine Appearance Cloudy; Urine Bacteria 1+ (Absent); Urine Bilirubin Negative (Negative); Urine Blood 1+ (Negative); Urine Color Yellow; Urine Glucose 3+(>=500 mg/dL) (Negative); Urine Ketones Trace (Negative); Urine Nitrite Negative (Negative); Urine Protein 2+(100 mg/dL) (Negative); Urine Red Blood Cell Trace(0-2/hpf) (Absent); Urine Squamous Epithelial Cell Present (Absent); Urine Urobilinogen Negative (Negative); Urine White Blood Cell 3+(>20/hpf) (Absent)
[2018-11-04] MEDS ORDERED: cefTRIAXone(*) 1 GM in NS 0.9% 50 ML* 50 ML IVPB ONE (21:17)
[2018-11-04 21:29] LABS: Barbiturates Urine Screen None Detected (None Detect); Benzodiazepine Urine Screen None Detected (None Detect); Urine Cannabinoids Screen None Detected (None Detect)
[2018-11-04] MEDS ORDERED: Ondansetron INJ* 2 MG/ML VIAL IV PRN (23:17)
[2018-11-04] MEDS ORDERED: Dextrose 50% Syringe 50 ML* 25 GM/50 ML SYRINGE IV PUSH PRN (23:37)
[2018-11-04] MEDS ORDERED: Mometasone/Formoter 200/5 MDI INH SCH (23:45)
[2018-11-05] MEDS ORDERED: Magnesium Sulfate 2 GM IV* 2 GM/50 ML BAG IVPB ONE (00:26)
[2018-11-05] MEDS: Insulin GLARGINE(*) 1 UNITS UNIT SUBCUT SCH ×2 (01:05→13:20)
[2018-11-05] MEDS: Heparin VIAL(*) 5000 UNITS/ML VIAL (FIVE THOUSAND) SUBCUT SCH ×3 (05:56→22:47)
[2018-11-05 06:31] LABS: ABS Basophils 0 10^3/ul (0-0.2); ABS Eosinophils 0.2 10^3/ul (0-0.6); ABS Lymphocytes 1.2 10^3/ul (1.0-4.8); ABS Monocytes 0.6 10^3/ul (0-0.8); ABS Nucleated RBC 0 10^3/ul; Eosinophil % 2.2 %; Hematocrit 32 % (35-47); Hemoglobin 10.6 g/dl (12.0-16.0); Lymphocyte % 15.3 %; Mean Corpuscular HGB Conc 33 g/dl (31-36); Mean Corpuscular Hemoglobin 27 pg (27-31); Mean Corpuscular Volume 81 fL (80-97); Nucleated Red Blood Cells % 0; Platelet Count 264 10^3/ul (150-450); Red Blood Count 3.93 10^6/ul (4.00-5.40); Red Cell Distribution Width 16 % (10.5-15); White Blood Count 8.1 10^3/ul (3.5-10.8)
[2018-11-05 06:43] LABS: BUN/Creatinine Ratio 18.2 (8-20); Calcium 8.4 mg/dL (8.6-10.3); EGFR Non-African American 67.7 (>60); Potassium 3.7 mmol/L (3.5-5.0)
--- NOTE | 2018-11-05 06:53 | HP ---
CC: Dr. Zoya Patten * HISTORY AND PHYSICAL: DATE OF ADMISSION: 11/05/18 PROVIDER: Dash House NP. ATTENDING PHYSICIAN: Ara Alvarez MD * (dictated by Dash House NP). PRIMARY CARE PROVIDER: Dr. Zoya Patten. CHIEF COMPLAINT: Weakness and hyperglycemia. HISTORY OF PRESENT ILLNESS: Ms. Mcgregor is a 53-year-old female who presents to the ER today with concern for hyperglycemia. She was brought in by ambulance with concern for weakness. She reports that she had been feeling weak all day. Of note, when I attempt to obtain the history and physical informations from the patient, she appears to be somewhat drowsy. She is slow to respond to my questions. She does respond to repeated verbal and tactile stimuli. She denies having chest pain, increased shortness of breath, abdominal pain, nausea , vomiting, or diarrhea. She denies any fever or chills. She does report some suprapubic pain over her bladder at baseline. She does have a wound to the left great toe that she was being seen for by Wound Care but has not had a recent followup. She denies any cold or flu symptoms. She is unsure why she feels so weak. Here in the ER, she was treated with 2 L of fluid as well as insulin for her hyperglycemia. She did improve with her blood sugar; however, when the staff attempted to get her up for walking, she apparently fell backwards onto the bed and was unable to support herself and ambulate. For this reason, Hospital Medicine was called for admission. She was also noted to have bacteria in her urine, so she was started on ceftriaxone for presumed urinary tract infection. PAST MEDICAL HISTORY: Includes type 2 diabetes, hypertension, peripheral neuropathy likely secondary to type 2 diabetes, COPD, osteoarthritis, anxiety, and depression. PAST SURGICAL HISTORY: Includes left foot surgery with a juan carlos in the left great toe. MEDICATIONS: Home medications have not yet been reconciled. I did note from previous admission that she is on: 1. Atorvastatin 40 mg at bedtime. 2. Lisinopril 20 mg daily. 3. Amitriptyline 25 mg at bedtime. 4. Albuterol 1 neb q.6 hours as needed for shortness of breath. 5. Advair 250/50 one puff b.i.d. 6. U-500 insulin 60 units subcutaneously t.i.d. 7. Anoro Ellipta 1 puff inhaled daily. 8. Ipratropium and albuterol sulfate inhaled q.6 hours p.r.n. 9. [place] 5/325 one tab q.8 hours p.r.n. Home medications to be reconciled by Nursing. ALLERGIES: Include LATEX, MICONAZOLE. FAMILY HISTORY: Unobtainable as the patient is adopted. SOCIAL HISTORY: She is a former smoker. She denies alcohol use. She reports occasional marijuana use, usually once or twice a week. She lives with her and children, and she lists her and daughter Mónica as her surrogate decision makers. REVIEW OF SYSTEMS: As per HPI. A 12-point review of systems was attempted. All pertinent positives and negatives as per HPI. Some information is difficult to obtain secondary to patient cooperation. PHYSICAL EXAMINATION GENERAL: This is a middle-aged female, lying on the ED stretcher, in no acute distress. VITAL SIGNS: Temperature 98.3, heart rate 59, respiratory rate 16, blood pressure 141/76, and O2 saturation 98% on room air. HEENT: Head is atraumatic, normocephalic. Pupils are equal and round. Extraocular movements are intact. Oral mucosa is moist. There is no oropharyngeal erythema or exudate. NECK: Supple with full range of motion. No JVD noted. LUNGS: Clear to auscultation bilaterally. CARDIAC: Normal S1, S2. Heart sounds are regular and rhythm. No murmurs appreciated. No peripheral edema noted. ABDOMEN: Soft, nontender, nondistended. There is some mild suprapubic tenderness with palpation. MUSCULOSKELETAL: No clubbing or cyanosis. She is able to move all extremities with full range of motion demonstrated. She is able to push herself up from a lying position to a sitting position without any assistance. She is able to push herself up and bear weight through her legs fully before sitting back down. NEUROLOGIC: She is slow to respond but alert. She is oriented to person, place , and time. She does follow commands. Strength is 5/5 bilaterally in the upper and lower extremities. She is slow to respond when asked to lift her legs and squeeze my hands but is able to do so. However, again she is able to push herself up to a sitting position and she resists me when I attempt to do passive range of motion to the bilateral lower extremities. SKIN: There is an open area on the left great toe with some minimal erythema and dry flaking skin. No streaking noted. No purulent drainage. LABORATORY DATA AND DIAGNOSTIC STUDIES: CBC: WBC 6.7, hemoglobin 11.6, hematocrit 36, platelet count 282. CMP: Sodium 136, potassium 3.5, chloride 101, carbon dioxide 28, BUN 17, creatinine 0.86, glucose 406, magnesium 1.8, total bilirubin 0.6, AST 12, ALT 10, alk phos 102, total CK 41, troponin 0.00. CRP 3.62, TSH 0.51. Urinalysis is positive for 2+ protein, trace ketones, 1+ blood, 3+ wbc's, and 1+ bacteria. Urine tox screens are negative. Rapid flu was negative. Chest x-ray shows no acute pathology. X-ray of the foot shows no bony erosions. EKG shows sinus bradycardia with nonspecific T-wave inversions in V2 through V4. CT of the brain was ordered and reviewed. It shows no acute intracranial abnormality and mild sinus disease. Old medical records were reviewed. ASSESSMENT AND PLAN: This is a 53-year-old female who presents today with concern for hyperglycemia and weakness. She will be admitted under OBV status for the followin. Hyperglycemia. This appears to be a recurrent issue with this patient. She has uncontrolled insulin-dependent diabetes and is incredibly insulin resistant. I am waiting to confirm her home medication doses, but in the hospital, I will resume her the previous endocrinology recommendations which include 60 units of Lantus b.i.d. and use of lispro 20 units subcu with meals. Titrate as needed while here in the hospital. She should continue outpatient endocrinology followup as directed. 2. Weakness. I am unsure what the etiology of this is. She has appropriate strength and can bear weight through her legs, although she has low motivation to do so when we attempted to encourage her in the ER. She was noted to be stepping her feet and stated that she has numbness in her legs and feet. When asked what she takes at home, she reported Lyrica; however, I do note that her I -STOP shows that she has not been prescribed Lyrica for several months and actually was on [place]. Again, we will wait confirmation of her home medications. We will continue supportive care and continue antibiotics for presumed UTI, as this may be contributing to presentation. 3. Concern for urinary traction infection. She has received ceftriaxone. We will continue this at this time. Urine culture is pending. She does have some dysuria and suprapubic tenderness. 4. History of hypertension. Currently controlled. I will continue the lisinopril seen on her previous medication list. 5. Chronic obstructive pulmonary disease, not in acute exacerbation. Continue home Anoro Ellipta and Advair. 6. Depression and anxiety. Continue amitriptyline. Awaiting confirmation for medications. 7. FEN: She has already received 2 L of fluid. Appropriate blood pressure response was observed on child monitor from lying to sitting and sitting to standing; no signs of orthostasis. Will hold on further fluids at this time. She is going to be ordered a consistent carbohydrate diet. 8. DVT prophylaxis: She is ordered subcu heparin. 9. Code status: She is a full code. 10. Disposition: Anticipate discharge to home when medically stable. TIME SPENT: I spent approximately 60 minutes with more than half that time spent [id number] with the patient obtaining history and physical, performing physical examination, and reviewing the plan of care. Plan of care was also reviewed with my attending Dr. Ara Alvarez, who is in agreement. DASH OHUSE NP [id number]/CPS #: [id number] MTDD
[2018-11-05] MEDS ORDERED: Lisinopril TAB* 10 MG PO SCH (09:00)
[2018-11-05] MEDS ORDERED: Aspirin EC TAB* 81 MG TAB.EC ONE (09:25)
[2018-11-05] MEDS: Aspirin EC TAB* 81 MG TAB.EC PO SCH (09:29)
[2018-11-05] MEDS: Mometasone/Formoter 200/5 MDI INH SCH ×2 (09:29→20:27)
[2018-11-05] MEDS: Insulin LISPRO* 1 UNITS UNIT SUBCUT SCH ×6 (09:30→19:08)
[2018-11-05] MEDS: NFT: Umeclidin/Vilant 62.5 MDI 62.5/25 mcg 14 INH ELLIPTA DEVICE INH SCH (09:35)
[2018-11-05 09:50] LABS: Magnesium 2.5 mg/dL (1.9-2.7)
[2018-11-05] MEDS ORDERED: Albuterol/Ipratropium NEB.SOL* Albuterol 2.5 MG/Ipratropium 0.5 MG 3 ML INH PRN (10:47)
[2018-11-05] MEDS ORDERED: Umeclidin/Vilant 62.5 MDI 62.5/25 mcg 14 INH ELLIPTA DEVICE INH PRN (10:47)
[2018-11-05] MEDS ORDERED: Dextrose 50% Syringe 50 ML* 25 GM/50 ML SYRINGE IV PUSH PRN (10:49)
[2018-11-05] MEDS: HYDROcodone/ACETAMIN 5-325 MG* 1 TAB PO PRN (11:11)
[2018-11-05] MEDS ORDERED: NS 0.9% 1000 ML** 1,000 ML IV ONE (15:42)
[2018-11-05] MEDS: Cefepime 1 GM in Dextrose(*) 1 GM/50 ML BAG IV SCH (19:07)
--- NOTE | 2018-11-05 19:51 | PN ---
Subjective Date of Service: 11/05/18 Interval History: HOSPITALIST PROGRESS NOTE Patient seen and examined at bedside. Care reviewed and d/w Rosalee Lim RN. She c/o generalized weakness. Very poor historian, cannot give good timeline of events. Nurse had called earlier today because patient was hypotensive, also had bowel incontinence. Family History: Unchanged from Admission Social History: Unchanged from Admission Past Medical History: Unchanged from Admission Objective Active Medications: Acetaminophen (Tylenol Tab*) 650 mg PO Q4H PRN PRN Reason: FEVER/PAIN Hydrocodone Bitart/Acetaminophen ([place] 5-325 Tab*) 1 tab PO Q8H PRN PRN Reason: PAIN Last Admin: 11/05/18 11:11 Dose: 1 tab Albuterol/Ipratropium (Duoneb (Albuterol 2.5 Mg/Ipratropium 0.5 Mg)) 1 neb INH Q6H PRN PRN Reason: SOB/WHEEZING Amitriptyline HCl (Elavil Tab*) 25 mg PO BEDTIME [facility] Aspirin (Aspirin Ec Tab*) 81 mg PO DAILY [facility] Last Admin: 11/05/18 09:29 Dose: 81 mg Dextrose (D50w Syringe 50 Ml*) 12.5 gm IV PUSH .FOR FS < 60 - SS PRN PRN Reason: FS < 60 Heparin Sodium (Porcine) (Heparin Vial(*)) 5,000 units SUBCUT Q8HR [facility] Last Admin: 11/05/18 15:39 Dose: 5,000 units Cefepime HCl (Maxipime 1 Gm In Dextrose Duplex (*)) 1 gm in 50 mls @ 100 mls/ hr IV Q12H [facility] Last Admin: 11/05/18 19:07 Dose: 100 mls/hr Lactated Ringer's (Lactated Ringers 1000 Ml Bag*) 1,000 mls @ 150 mls/hr IV PER RATE [facility] Insulin Glargine (Lantus(*)) 60 units SUBCUT Q12H [facility] Last Admin: 11/05/18 13:20 Dose: 60 units Insulin Human Lispro (Humalog*) 0 units SUBCUT AC [facility]; Protocol Last Admin: 11/05/18 17:35 Dose: Not Given Insulin Human Lispro (Humalog*) 5 units SUBCUT [facility] Last Admin: 11/05/18 19:08 Dose: 5 units Lisinopril (Prinivil Tab*) 20 mg PO DAILY [facility] Last Admin: 11/05/18 09:29 Dose: 20 mg Mometasone Furoate/Formoterol Fumar (Dulera 200/5 Mdi*) 2 puff INH 0900,2100 [facility] Last Admin: 11/05/18 09:29 Dose: 2 puff Ondansetron HCl (Zofran Inj*) 4 mg IV Q6H PRN PRN Reason: NAUSEA/VOMITING Umeclidinium/Vilanterol (Anoro 62.5/25 Ellipta Device (Nf)) 1 inh INH DAILY [facility] Last Admin: 11/05/18 09:35 Dose: Not Given Vital Signs - 8 hr 11/05/18 11/05/18 11/05/18 13:26 15:35 15:38 Temperature 98.3 F Pulse Rate 57 Respiratory 16 16 Rate Blood Pressure 65/33 76/42 (mmHg) O2 Sat by Pulse 96 Oximetry 11/05/18 11/05/18 16:36 17:21 Temperature 98.6 F Pulse Rate 57 Respiratory 16 Rate Blood Pressure 81/43 92/64 (mmHg) O2 Sat by Pulse 94 Oximetry Oxygen Devices in Use Now: None Appearance: Middle aged lady lying in bed in [facility]. Eyes: No Scleral Icterus Ears/Nose/Mouth/Throat: Mucous Membranes Moist Neck: Trachea Midline Respiratory: Symmetrical Chest Expansion and Respiratory Effort, Clear to Auscultation Cardiovascular: RRR - Normal S1 and S2 Extremities: - - Left hallux ulcer, no purulent drainage, minimal erythema Neurological: Alert and Oriented x 3, NL Muscle Strength and Tone Result Diagrams: 11/05/18 05:21 11/05/18 05:21 Microbiology and Other Data: Microbiology 11/04/18 20:58 Urine Culture - Preliminary Urine Escherichia Coli 11/04/18 18:32 Influenza Types A,B Antigen - Final Nasal Specimen received for Influenza A/B Molecular testing Assess/Plan/Problems-Billing Assessment: Mrs Mcgregor is a 53yo F with PMH of type 2 DM, diabetic neuropathy, HTN, COPD, anxiety, depression, who presented to ED with c/o weakness. - Patient Problems (1) Sepsis Comment: - Patient may have severe sepsis. She does not meet SIRS criteria right now but was hypotensive earlier. Had similar presentation in May with UTI. Denies dysuria, but has had a month of urinary retention. - Will repeat labs, including LA, check blood cultures, give fluid bolus, broaden antibiotics to Cefepime. - Hold lisinopril. - S/o to leather skinner Dr Pena to f/u labs and adjust treatment if severe sepsis confirmed. At this point will continue fluid resuscitation as she is responding to IVF and does not require pressors for now. (2) Generalized weakness Comment: - No focal findings on exam. - Has had urinary retention for a month and bowel incontinence for 2 months according to information she gave to Neurologist. - D/w Dr Chen - recommened MRI C,T,L spine with and without contrast on a non emergent basis. - Her weakness may be secondary to infection and not necessarily neurological disease. (3) Urinary retention Comment: - Patient states she has to push on her belly to be able to empty her bladder - suspect neurogenic bladder associated with DM. - US showed no hydronephrosis, PVR 98ml. - UA is abnormal - continue Cefepime empirically and follow cultures. (4) Foot ulcer Comment: - Has left hallux wound, chronic - patient states is unchanged, but may also be a source of infection - continue Cefepime and monitor. (5) Diabetes mellitus, insulin dependent (IDDM), uncontrolled Comment: - Better controlled now. - Lower Lantus dose to 50 BID and lower Lispro dose to 5 TID. (6) DVT prophylaxis Comment: - SQ heparin (7) Full code status Comment: Status and Disposition: Change to inpatient.
[2018-11-05] MEDS: Lactated Ringers 1000 ML Bag* 1,000 ML IV SCH ×2 (19:54→22:47)
[2018-11-05] MEDS ORDERED: Lactated Ringers 1000 ML Bag* 1,000 ML IV.FLUID IV ONE (19:55)
[2018-11-05 20:17] LABS: ABS Basophils 0 10^3/ul (0-0.2); ABS Eosinophils 0.1 10^3/ul (0-0.6); ABS Monocytes 0.4 10^3/ul (0-0.8); ABS Neutrophils 4.7 10^3/ul (1.5-7.7); ABS Nucleated RBC 0 10^3/ul; Eosinophil % 1.9 %; Hematocrit 32 % (35-47); Hemoglobin 10.4 g/dl (12.0-16.0); Lymphocyte % 16.3 %; Mean Corpuscular HGB Conc 33 g/dl (31-36); Mean Corpuscular Hemoglobin 27 pg (27-31); Mean Corpuscular Volume 82 fL (80-97); Nucleated Red Blood Cells % 0; Platelet Count 283 10^3/ul (150-450); Red Cell Distribution Width 16 % (10.5-15); White Blood Count 6.3 10^3/ul (3.5-10.8)
[2018-11-05 20:34] LABS: Albumin/Globulin Ratio 1.1 (1-3); BUN/Creatinine Ratio 22.8 (8-20); Calcium 8.1 mg/dL (8.6-10.3); EGFR African American 69.9 (>60); EGFR Non-African American 57.8 (>60); Globulin 2.7 g/dL (2-4); Potassium 3.4 mmol/L (3.5-5.0); Total Bilirubin 0.3 mg/dL (0.2-1.0); Total Protein 5.7 g/dL (6.4-8.9)
[2018-11-05] MEDS ORDERED: Insulin GLARGINE(*) 1 UNITS UNIT SUBCUT SCH (21:00)
[2018-11-05] MEDS: Amitriptyline TAB* 25 MG PO SCH (21:00)
[2018-11-05] MEDS ORDERED: Fluticasone-Salmeterol 250-50* DISKUS INH SCH (21:00)
[2018-11-05 21:24] LABS: Folate 7.37 ng/mL (>3.99)
[2018-11-05] MEDS ORDERED: cefTRIAXone(*) 1 GM in NS 0.9% 50 ML* 50 ML IVPB SCH (22:00)
--- NOTE | 2018-11-05 23:28 | CONS ---
CC: Gustavo Maldonado NP., at [facility] CONSULTATION REPORT: DATE OF CONSULTATION: 11/05/18 REQUESTING PHYSICIAN: Dr. Mckeon. REASON FOR CONSULT: Weakness, numbness, and incontinence. HISTORY OF PRESENT ILLNESS: Lesly Mcgregor is a 53-year-old woman with a history of diabetes type 2 and peripheral neuropathy, as well as chronic left foot infection, who has had a complicated medical course over the last year, with admission in May with hyperglycemia and a course complicated by hypotension requiring intubation and being placed in the ICU, with neurologic followup in hospital, and more recently admission in August with a diagnosis of hypoglycemia and toxic metabolic encephalopathy, who is now admitted with weakness, drowsiness, and pain. Last night, when in the emergency room, she was noted to be drowsy and slow to respond. History was hard to obtain. She was found to have a urinary tract infection with E. coli and was put on ceftriaxone. Today, she went hypotensive, with blood pressures recorded as low as 65/33, with response to fluids. Her glucose has been noted to be greater than 400. She has a chronic left toe infection, indicates that she was unable to get to pain clinic for followup and did not get the antibiotic she needed to get, most recently. There is hardware in her toe. She feels like her toe looks worse. Her CRP was 3.62 and lactate was 1.1 in the emergency room. I was asked to see Lesly Mcgregor because of increased weakness in her arms and legs. On further detailed history, she has had difficulty with pain and weakness in her legs chronically. She has had difficulty with pain for the last 5 to 6 years, which is an aching pain, which has gotten worse in the last year with more of a sharp pain that goes down her legs. She particularly thinks the pain has gotten worse prior to admission. She has also had difficulty with weak legs and has been falling for the last 2 months. She has used a walker since being discharged from hospital and she was not sure if it was May or September admission. She admits that the weak legs may go back years, but it has particularly been worse in the last month, really bad in the last 2 weeks, and even worse in the last 4 to 5 days. Despite being weak and numb, she tries to participate in activities. She tried to take the garbage out her driveway on and fell onto her knees. She denies any neck pain or back pain or radicular symptoms. She did [place] on the black ice 9 years ago. She recently had been put on hydrocodone, which she finds in general helps with her pain, but yesterday it did not help with her pain, prior to admission. She finds her pain is in her thighs, distally in her legs, right greater than left leg. She has chronic numbness associated with the neuropathy from the knees distally and in the hands. She feels like that is about the same. She feels like her arms have been weak in the last week and she finds it harder to text. She wears dentures and she does not have them in, she does not think her speech has changed. I noted her eyelids were low and she indicated that this was not a change. There are no times when it completely closes. There has been no diplopia. She has had no difficulty chewing or swallowing. Since in the hospital, she was noted to have some bowel incontinence. She has had this for the last 2 months. She also has had difficulty completely emptying her bladder. She tells me this has been going on for the last month. She often has to push to get the rest of the urine out. She denies any numbness on her trunk or squeezing chest pressure around her abdomen or trunk. PAST MEDICAL HISTORY: Includes diabetes type 2 and peripheral neuropathy, following with Dr. Lucas St; hypertension, COPD, osteoarthritis, anxiety, depression. She has had right inguinal hernia repair and left large toe surgery with juan carlos and screw and chronic infection. MEDICATIONS: At this time includes: 1. Acetaminophen 650 mg p.o. q.4 hours p.r.n. fever and pain. 2. Hydrocodone/APAP 5/325, one tablet p.o. q.8 hours p.r.n. pain. 3. Albuterol nebulizer inhaled q.6 hours p.r.n. shortness of breath and wheezing. 4. Amitriptyline 25 mg p.o. q.h.s. 5. Aspirin 81 mg p.o. daily. 6. Ceftriaxone was changed to cefepime after discussion with Dr. Mckeon, currently on 1 g every 12 hours. 7. Dextrose 12.5 g IV push for fingerstick less than 60. 8. Heparin 5000 units subcu q.8 hours. 9. Lantus insulin 60 units subcu q.12 hours. 10. Lispro insulin 5 units subcu a.c. 11. Ringer's lactate 1000 mL, at 150 mL an hour. 12. Lisinopril 20 mg p.o. daily. 13. Dulera 2 puffs inhaled b.i.d. 14. Ondansetron 4 mg IV q.6 hours p.r.n. nausea and vomiting. 15. Umeclidinium/vilanterol 1 inhaled daily. ALLERGIES: Include LATEX and MICONAZOLE. FAMILY HISTORY: She is adopted and family history is not known. SOCIAL HISTORY: She smoked in the past. She has very rare smoking of marijuana. She lives with her , daughter, and her daughter's . She is disabled and has reading and learning disabilities. PHYSICAL EXAMINATION: On examination, her most recent blood pressure was 92/64 with a pulse of 73, temperature was 98.6 degree Fahrenheit, measured orally. Her heart rate was 57, respiratory rate was 16, saturation was 94%. She had a regular cardiac rhythm. Her lungs were clear to auscultation. She had swelling in her left large toe compared to her right. Her left foot was dusky compared to her right. There was an abnormal odor near her wound, between her first and second toe on her left foot. Her right foot was cold. Her left foot was neutral. There was a question of some petechiae distally in both legs; however, they were blanched and appeared old. There was no raised rash. She was awake and alert. She knew immediately who I was and that I had met her in May after an episode of loss of consciousness. She knew she was in the hospital and was able to give a detailed history. She called home to get reminded on her primary doctor's name. She had full extraocular movements with no nystagmus, full garduno to confrontation. Her eyelids were half mast. No curtaining was noted. Her facial expression was symmetric, slightly diminished. She had a dysarthria that one might associate with lack of dentures. There was no myasthenic speech and her palate was upgoing, tongue was midline, sternocleidomastoid and trapezius were 5/5 in strength. There was no pronator drift, albeit she got a little tremulous holding her hands up after a period of time, with a question of asterixis. There was a minimum of 4+ to 5 - strength, which was symmetric between arms and legs. There was some variability noted. She had no ataxia with vizwpp-ur-ucpm movements. Heel-to- mckee movements were hard. Vibration sensation was absent at the toes and ankles , decreased at the knees by 15 to 30 seconds, and decreased at the distal interphalangeal joints at second fingers of both hands by approximately 10 to 15 seconds. Proprioception was reduced at the toes. There was decreased sharp sensation to the knees bilaterally. There was no sensory level on her trunk. There was no asymmetry to pinprick, cold or light touch. She got up to go to the bathroom using a gait belt and assist of 2. She was shaky. She could weight bear. She was able to use her arms to help push herself out of bed; she required help. DIAGNOSTIC STUDIES/LAB DATA: Data includes CBC with a white count initially of 6.7, repeated at 8.1. Her hemoglobin and hematocrit have dropped from 11.7 and 36 to 10.6 and 32. Platelet count was within normal limits. Her MCV was normal. MCH was low on the first CBC. Her metabolic panel showed a glucose that was elevated at 406 on admission. Glucose has improved since admission. Her calcium was initially 8.6, it is now 8.4. Magnesium was low at 1.8, now improved at 2.5. Liver function tests were normal or low, total protein was low at 6.3, TSH was normal at 0.51 and cortisol was 13.68. Her urinalysis was abnormal and E. coli is growing and sensitivities have yet to come back. She had a urine tox screen which was negative and serum alcohol was less than 6. Rapid influenza A and B were negative. IMPRESSION: Lesly Mcgregor is a 53-year-old woman with a history of diabetes with poorly controlled sugars, peripheral neuropathy, chronic left toe wound in her foot with hardware, E. coli UTI, hypotension responding to fluids, acute on chronic weakness, acute bowel incontinence, and urinary retention. I spoke to the hospitalist team regarding concerns of sepsis in the setting of poorly controlled diabetes with hypotension and increased weakness and abnormal findings of the left foot and urinary tract infection. I am reminded of when she had a profound hypotension requiring intubation and admission to the ICU in May. Dr. Mckeon is directing further workup with blood cultures, changing her antibiotics, and ensuring fluids. Education was given to the patient. Regarding incontinence of bowel and retention of urine of unclear etiology, one must question if there may be a component of neurogenic bladder, role of cauda equina syndrome given her leg pain and bowel and bladder functions must be questioned, and I will check an MRI of the lumbosacral spine. She, however, has had difficulty with weakness of both arms and legs. There has been hypotension and one cannot exclude cord pathology, albeit reflexes are decreased as one would expect in peripheral neuropathy and there is no sensory level noted. Her toes, however, are equivocal. Because of her chronic and subacute course, we will proceed in also looking at an MRI of the cervical and thoracic spine with contrast. Question is raised on whether there is asterixis and I would check her ammonia level as this is treatable. Her profound vibration sensation may be secondary to her peripheral neuropathy; however, it could be secondary to posterior cord pathology and I would check B12 and folate. Bilateral ptosis was noted with no other features of myasthenia gravis. Will watch and consider further work up according to symptoms. MRI Brain is ordered. Education was given to the patient regarding extensive differential diagnosis in this complex case and case was discussed with Dr. Mckeon. TIME SPENT: An hour and 45 minutes were spent in patient care. All questions were answered. [id number]/[facility] #: [id number] MTDD
--- NOTE | 2018-11-06 01:09 | PN ---
Sepsis Event Evaluation Date of Evaluation: 11/06/18 Time of Evaluation: 01:08 Current Stage of Sepsis: Sepsis Vital Signs - Last 12 Hours: Vital Signs - 12 hr Temp Pulse Resp BP Pulse Ox 11/05/18 23:36 36.6 C 59 16 118/57 97 11/05/18 20:29 62 16 98 11/05/18 19:50 16 11/05/18 19:29 37.2 C 64 18 90/41 100 11/05/18 17:21 92/64 11/05/18 16:36 37.0 C 57 16 81/43 94 11/05/18 15:38 76/42 11/05/18 15:35 36.8 C 57 16 65/33 96 11/05/18 13:26 16 Lactic Acid: 11/04/18 11/05/18 11/06/18 17:50 20:04 00:05 Lactic Acid 1.1 1.6 1.2 - Cardiopulmonary Exam Capillary Refill: Immediate Respiratory: Clear to Auscultation Cardiovascular: NL Sounds; No Murmurs; No JVD - Peripheral Pulse Exam Radial Pulses: Bilateral Normal Pedal Pulses: Bilateral Diminished Posterior Tibial Pulse: Bilateral Normal Femoral Pulses: Bilateral Normal Popliteal Pulses: Bilateral Normal - Skin Exam Skin Exam: Normal Turgor - Hari Coma Scale Best Eye Response: 4 - Spontaneous Best Motor Response: 6 - Obeys Commands Best Verbal Response: 5 - Oriented Coma Scale Total: 15 Assess/Plan/Problems-Billing Assessment: Mrs Mcgregor is a 53yo F with PMH of type 2 DM, diabetic neuropathy, HTN, COPD, anxiety, depression, who presented to ED with c/o weakness. Status and Disposition: Change to inpatient.
[2018-11-06] MEDS: Lactated Ringers 1000 ML Bag* 1,000 ML IV SCH ×2 (01:19→05:52)
[2018-11-06 05:46] LABS: ABS Basophils 0 10^3/ul (0-0.2); ABS Eosinophils 0.1 10^3/ul (0-0.6); ABS Lymphocytes 1.6 10^3/ul (1.0-4.8); ABS Monocytes 0.4 10^3/ul (0-0.8); ABS Neutrophils 2.6 10^3/ul (1.5-7.7); ABS Nucleated RBC 0 10^3/ul; Hematocrit 29 % (35-47); Hemoglobin 9.5 g/dl (12.0-16.0); Lymphocyte % 33.3 %; Mean Corpuscular HGB Conc 33 g/dl (31-36); Mean Corpuscular Hemoglobin 27 pg (27-31); Mean Corpuscular Volume 82 fL (80-97); Mean Platelet Volume 7.9 fL (7.4-10.4); Nucleated Red Blood Cells % 0.1; Platelet Count 228 10^3/ul (150-450); Red Blood Count 3.57 10^6/ul (4.00-5.40); Red Cell Distribution Width 16 % (10.5-15); White Blood Count 4.8 10^3/ul (3.5-10.8)
[2018-11-06] MEDS: Heparin VIAL(*) 5000 UNITS/ML VIAL (FIVE THOUSAND) SUBCUT SCH ×3 (05:47→22:22)
[2018-11-06 06:10] LABS: BUN/Creatinine Ratio 23.4 (8-20); Calcium 8.1 mg/dL (8.6-10.3); EGFR African American 95.6 (>60); Potassium 3.4 mmol/L (3.5-5.0)
[2018-11-06] MEDS: Mometasone/Formoter 200/5 MDI INH SCH ×2 (07:19→19:38)
[2018-11-06] MEDS: Cefepime 1 GM in Dextrose(*) 1 GM/50 ML BAG IV SCH ×2 (08:13→19:17)
[2018-11-06] MEDS: Aspirin EC TAB* 81 MG TAB.EC PO SCH (08:13)
[2018-11-06] MEDS ORDERED: Dextrose 50% Syringe 50 ML* 25 GM/50 ML SYRINGE IV PUSH PRN ×2 (08:16)
[2018-11-06] MEDS: NFT: Umeclidin/Vilant 62.5 MDI 62.5/25 mcg 14 INH ELLIPTA DEVICE INH SCH (08:18)
[2018-11-06] MEDS: Insulin LISPRO* 1 UNITS UNIT SUBCUT SCH ×5 (08:19→18:30)
--- NOTE | 2018-11-06 08:44 | PN ---
Subjective Date of Service: 11/06/18 Interval History: No overnight events. Patient states she is tired. AAOx3. States she has been having ongoing urinary issues for the past month where she has had to push on her bladder to get the urine out. No back pain. States she is weak in general. No CP. Tolerating PO. Family History: Unchanged from Admission Social History: Unchanged from Admission Past Medical History: Unchanged from Admission Objective Active Medications: Acetaminophen (Tylenol Tab*) 650 mg PO Q4H PRN PRN Reason: FEVER/PAIN Hydrocodone Bitart/Acetaminophen (Freeborn 5-325 Tab*) 1 tab PO Q8H PRN PRN Reason: PAIN Last Admin: 11/05/18 11:11 Dose: 1 tab Albuterol/Ipratropium (Duoneb (Albuterol 2.5 Mg/Ipratropium 0.5 Mg)) 1 neb INH Q6H PRN PRN Reason: SOB/WHEEZING Amitriptyline HCl (Elavil Tab*) 25 mg PO BEDTIME [facility] Last Admin: 11/05/18 21:00 Dose: 25 mg Aspirin (Aspirin Ec Tab*) 81 mg PO DAILY [facility] Last Admin: 11/06/18 08:13 Dose: 81 mg Dextrose (D50w Syringe 50 Ml*) 12.5 gm IV PUSH .FOR FS < 60 - SS PRN PRN Reason: FS < 60 Dextrose (D50w Syringe 50 Ml*) 12.5 gm IV PUSH .FOR FS < 60 - SS PRN PRN Reason: FS < 60 Dextrose (D50w Syringe 50 Ml*) 12.5 gm IV PUSH .FOR FS < 60 - SS PRN PRN Reason: FS < 60 Heparin Sodium (Porcine) (Heparin Vial(*)) 5,000 units SUBCUT Q8HR [facility] Last Admin: 11/06/18 05:47 Dose: 5,000 units Cefepime HCl (Maxipime 1 Gm In Dextrose Duplex (*)) 1 gm in 50 mls @ 100 mls/ hr IV Q12H [facility] Last Admin: 11/06/18 08:13 Dose: 100 mls/hr Insulin Glargine (Lantus(*)) 50 units SUBCUT BEDTIME [facility] Insulin Human Lispro (Humalog*) 0 units SUBCUT AC SPRING; Protocol Insulin Human Lispro (Humalog*) 0 units SUBCUT AC SPRING; Protocol Mometasone Furoate/Formoterol Fumar (Dulera 200/5 Mdi*) 2 puff INH 0900,2100 [facility] Last Admin: 11/06/18 07:19 Dose: 2 puff Ondansetron HCl (Zofran Inj*) 4 mg IV Q6H PRN PRN Reason: NAUSEA/VOMITING Umeclidinium/Vilanterol (Anoro 62.5/25 Ellipta Device (Nf)) 1 inh INH DAILY [facility] Last Admin: 11/06/18 08:18 Dose: Not Given Vital Signs - 8 hr 11/06/18 11/06/18 03:15 07:47 Temperature 97.8 F Pulse Rate 56 56 Respiratory 16 16 Rate Blood Pressure 103/52 118/55 (mmHg) O2 Sat by Pulse 96 97 Oximetry Oxygen Devices in Use Now: None Eyes: PERRLA Ears/Nose/Mouth/Throat: Mucous Membranes Moist Respiratory: Symmetrical Chest Expansion and Respiratory Effort Cardiovascular: NL Sounds; No Murmurs; No JVD, RRR Abdominal: NL Sounds; No Tenderness; No Distention Extremities: No Edema Neurological: Alert and Oriented x 3, - - weakness in lower ext/ symmetric Result Diagrams: 11/06/18 05:37 11/06/18 05:37 Additional Lab and Data: Lab Results 11/04/18 11/04/18 11/04/18 Range/Units 17:24 17:50 17:51 WBC 6.7 (3.5-10.8) 10^3/ul RBC 4.45 (4.00-5.40) 10^6/ul Hgb 11.7 L (12.0-16.0) g/dl Hct 36 (35-47) % MCV 81 (80-97) fL MCH 26 L (27-31) pg MCHC 32 (31-36) g/dl RDW 16 H (10.5-15) % Plt Count 282 (150-450) 10^3/ul MPV 8.0 (7.4-10.4) fL Neut % (Auto) 73.0 % Lymph % (Auto) 19.9 % [place] % (Auto) 5.3 % Eos % (Auto) 1.6 % Baso % (Auto) 0.2 % Absolute Neuts (auto) 4.9 (1.5-7.7) 10^3/ul Absolute Lymphs (auto) 1.3 (1.0-4.8) 10^3/ul Absolute Monos (auto) 0.4 (0-0.8) 10^3/ul Absolute Eos (auto) 0.1 (0-0.6) 10^3/ul Absolute Basos (auto) 0 (0-0.2) 10^3/ul Absolute Nucleated RBC 0 10^3/ul Nucleated RBC % 0 VBG pH (7.32-7.43) VBG pCO2 (41-51) mmHg VBG pO2 (35-45) mmHg VBG HCO3 (24-28) mmol/L VBG O2 Saturation (70-80) % VBG Base Excess (0.0-4.0) mmol/L Sodium (135-145) mmol/L Potassium (3.5-5.0) mmol/L Chloride (101-111) mmol/L Carbon Dioxide (22-32) mmol/L Anion Gap (2-11) mmol/L BUN (6-24) mg/dL Creatinine (0.51-0.95) mg/dL Est GFR ( Amer) (>60) Est GFR (Non-Af Amer) (>60) BUN/Creatinine Ratio (8-20) Glucose (70-100) mg/dL POC Glucose (mg/dL) 404 H* (70-100) mg/dL Lactic Acid 1.1 (0.5-2.0) mmol/L Calcium (8.6-10.3) mg/dL Magnesium Total Bilirubin (0.2-1.0) mg/dL AST (13-39) U/L ALT (7-52) U/L Alkaline Phosphatase (34-104) U/L Total Creatine Kinase (10-223) U/L Troponin I C-Reactive Protein (<8.01) mg/L Total Protein (6.4-8.9) g/dL Albumin (3.2-5.2) g/dL Globulin (2-4) g/dL Albumin/Globulin Ratio (1-3) TSH Serum Alcohol (<10) mg/dL 11/04/18 11/04/18 Range/Units 17:51 17:51 WBC (3.5-10.8) 10^3/ul RBC (4.00-5.40) 10^6/ul Hgb (12.0-16.0) g/dl Hct (35-47) % MCV (80-97) fL MCH (27-31) pg MCHC (31-36) g/dl RDW (10.5-15) % Plt Count (150-450) 10^3/ul MPV (7.4-10.4) fL Neut % (Auto) % Lymph % (Auto) % [place] % (Auto) % Eos % (Auto) % Baso % (Auto) % Absolute Neuts (auto) (1.5-7.7) 10^3/ul Absolute Lymphs (auto) (1.0-4.8) 10^3/ul Absolute Monos (auto) (0-0.8) 10^3/ul Absolute Eos (auto) (0-0.6) 10^3/ul Absolute Basos (auto) (0-0.2) 10^3/ul Absolute Nucleated RBC 10^3/ul Nucleated RBC % VBG pH 7.40 (7.32-7.43) VBG pCO2 44 (41-51) mmHg VBG pO2 < 38.0 (35-45) mmHg VBG HCO3 25.6 (24-28) mmol/L VBG O2 Saturation 65.6 L (70-80) % VBG Base Excess 2.0 (0.0-4.0) mmol/L Sodium 136 (135-145) mmol/L Potassium 3.5 (3.5-5.0) mmol/L Chloride 101 (101-111) mmol/L Carbon Dioxide 28 (22-32) mmol/L Anion Gap 7 (2-11) mmol/L BUN 17 (6-24) mg/dL Creatinine 0.86 (0.51-0.95) mg/dL Est GFR ( Amer) 84.2 (>60) Est GFR (Non-Af Amer) 69.6 (>60) BUN/Creatinine Ratio 19.8 (8-20) Glucose 406 H (70-100) mg/dL POC Glucose (mg/dL) (70-100) mg/dL Lactic Acid (0.5-2.0) mmol/L Calcium 8.6 (8.6-10.3) mg/dL Magnesium Pending Total Bilirubin 0.60 (0.2-1.0) mg/dL AST 12 L (13-39) U/L ALT 10 (7-52) U/L Alkaline Phosphatase 102 (34-104) U/L Total Creatine Kinase 41 (10-223) U/L Troponin I Pending C-Reactive Protein 3.62 (<8.01) mg/L Total Protein 6.3 L (6.4-8.9) g/dL Albumin 3.2 (3.2-5.2) g/dL Globulin 3.1 (2-4) g/dL Albumin/Globulin Ratio 1.0 (1-3) TSH Pending Serum Alcohol < 10 (<10) mg/dL Microbiology and Other Data: Microbiology 11/04/18 20:58 Urine Culture - Preliminary Urine Escherichia Coli 11/04/18 18:32 Influenza Types A,B Antigen - Final Nasal Specimen received for Influenza A/B Molecular testing Assess/Plan/Problems-Billing Assessment: Mrs Mcgregor is a 53yo F with PMH of type 2 DM, diabetic neuropathy, HTN, COPD, anxiety, depression, who presented to ED with c/o weakness. - Patient Problems (1) Urinary retention Current Visit: Yes Status: Acute Code(s): R33.9 - RETENTION OF URINE, UNSPECIFIED SNOMED Code(s): 767419686 Comment: - Patient states she has to push on her belly to be able to empty her bladder - suspect neurogenic bladder associated with DM. - US showed no hydronephrosis, PVR 98ml. - Trivedi catheter placed - UA is abnormal - continue Cefepime empirically and follow cultures. Recommend urology evaluation inpatient or outpatient once MRI studies are completed to rule out underlying pathology (2) Generalized weakness Current Visit: Yes Status: Acute Code(s): R53.1 - WEAKNESS SNOMED Code(s) : 14792961 Comment: - No focal findings on exam. - Has had urinary retention for a month and bowel incontinence for 2 months according to information she gave to Neurologist. REport to me today states she is having her bowel movements on the bedpan with no incontinence. - D/w Dr Chen - recommened MRI C,T,L spine with and without contrast on a non emergent basis. - Her weakness may be secondary to infection and not necessarily neurological disease. Plan MRI likely tomorrow 11/07 PT consult for home safety eval (3) Sepsis Current Visit: Yes Status: Acute Comment: - Patient may have severe sepsis. She does not meet SIRS criteria on 11/05 but was hypotensive earlier. Had similar presentation in May with UTI. Denies dysuria, but has had a month of urinary retention. - Will repeat labs, including LA, check blood cultures, give fluid bolus, broaden antibiotics to Cefepime. - Hold lisinopril. Remained stable overnight Plan Continue Cefepime until sensitivities return Follow up blood cultures (4) Diabetes mellitus, insulin dependent (IDDM), uncontrolled Current Visit: Yes Status: Chronic Code(s): E10.65 - TYPE 1 DIABETES MELLITUS WITH HYPERGLYCEMIA SNOMED Code(s): 39431679 Comment: Glucose this AM low normal. Taking U-500 at home - rather high doses 60 in AM, 25 at noon and 25 in PM - Better controlled now. - Lower Lantus dose 50 daily and strict lispro scale Consult Endo (5) COPD (chronic obstructive pulmonary disease) Current Visit: No Status: Acute Code(s): J44.9 - CHRONIC OBSTRUCTIVE PULMONARY DISEASE, UNSPECIFIED SNOMED Code(s): 32796686 Comment: - No evidence of exacerbation (6) Chronic pain Current Visit: No Status: Acute Code(s): G89.29 - OTHER CHRONIC PAIN SNOMED Code(s): 63993220 Comment: cont home norco (7) Peripheral neuropathy Current Visit: No Status: Acute Code(s): G62.9 - POLYNEUROPATHY, UNSPECIFIED SNOMED Code(s): 163460606 Comment: Continue duloxetine and gabapentin (8) Foot ulcer Current Visit: Yes Status: Acute Code(s): L97.509 - NON-PRESSURE CHRONIC ULCER OTH PRT UNSP FOOT W UNSP SEVERITY SNOMED Code(s): 66353825 Comment: - Has left hallux wound, chronic - patient states is unchanged, but may also be a source of infection - continue Cefepime and monitor. (9) DVT prophylaxis Current Visit: Yes Status: Acute Code(s): TPW9442 - SNOMED Code(s): 118453911 Comment: - SQ heparin (10) Full code status Current Visit: Yes Status: Acute Code(s): Z78.9 - OTHER SPECIFIED HEALTH STATUS SNOMED Code(s): 163023702 Comment: Status and Disposition: Pending MRI's and PT eval
[2018-11-06] MEDS ORDERED: Lisinopril TAB* 10 MG PO SCH (09:00)
--- NOTE | 2018-11-06 10:26 | PN ---
Progress Note - Progress Note Date of Service: 11/06/18 Note: HPI: Urinary retention overnight requiring rodgers catheter. No new numbness or weakness noted by patient. No new concerns. Blood pressure improved. Active Medications Generic Name Dose Route Start Last Admin Trade Name Freq PRN Reason Stop Dose Admin Acetaminophen 650 mg 11/04/18 23:17 Tylenol Tab* PO Q4H PRN FEVER/PAIN Hydrocodone Bitart/Acetaminophen 1 tab 11/05/18 10:47 11/05/18 11:11 [place] 5-325 Tab* PO 1 tab Q8H PRN Administration PAIN Albuterol/Ipratropium 1 neb 11/05/18 10:47 Duoneb (Albuterol 2.5 Mg/Ipratropium 0.5 Mg) INH Q6H PRN SOB/WHEEZING Amitriptyline HCl 25 mg 11/05/18 21:00 11/05/18 21:00 Elavil Tab* PO 25 mg BEDTIME [place] Administration Aspirin 81 mg 11/05/18 10:00 11/06/18 08:13 Aspirin Ec Tab* PO 81 mg DAILY [place] Administration Dextrose 12.5 gm 11/06/18 08:16 D50w Syringe 50 Ml* IV PUSH .FOR FS < 60 - SS PRN FS < 60 Heparin Sodium (Porcine) 5,000 units 11/05/18 06:00 11/06/18 05:47 Heparin Vial(*) SUBCUT 5,000 units Q8HR [place] Administration Cefepime HCl 1 gm in 50 mls @ 100 mls/hr 11/05/18 19:30 11/06/18 08:13 Maxipime 1 Gm In Dextrose Duplex (*) IV 100 mls/hr Q12H [place] Administration Insulin Glargine 50 units 11/06/18 21:00 Lantus(*) SUBCUT BEDTIME [facility] Insulin Human Lispro 0 units 11/06/18 11:30 Humalog* SUBCUT AC [facility] Protocol Insulin Human Lispro 0 units 11/06/18 11:30 Humalog* SUBCUT AC [facility] Protocol Mometasone Furoate/Formoterol Fumar 2 puff 11/05/18 09:00 11/06/18 07:19 Dulera 200/5 Mdi* INH 2 puff 0900,2100 [facility] Administration Ondansetron HCl 4 mg 11/04/18 23:17 Zofran Inj* IV Q6H PRN NAUSEA/VOMITING Umeclidinium/Vilanterol 1 inh 11/05/18 09:00 11/06/18 08:18 Anoro 62.5/25 Ellipta Device (Nf) INH Not Given DAILY [place] Vital Signs - 24 hr 11/05/18 11/05/18 11/05/18 11:11 11:21 13:26 Temperature 97.8 F Pulse Rate 58 Respiratory 16 16 16 Rate Blood Pressure 100/59 (mmHg) O2 Sat by Pulse 99 Oximetry 11/05/18 11/05/18 11/05/18 15:35 15:38 16:36 Temperature 98.3 F 98.6 F Pulse Rate 57 57 Respiratory 16 16 Rate Blood Pressure 65/33 76/42 81/43 (mmHg) O2 Sat by Pulse 96 94 Oximetry 11/05/18 11/05/18 11/05/18 17:21 19:29 19:50 Temperature 98.9 F Pulse Rate 64 Respiratory 18 16 Rate Blood Pressure 92/64 90/41 (mmHg) O2 Sat by Pulse 100 Oximetry 11/05/18 11/05/18 11/06/18 20:29 23:36 03:15 Temperature 97.8 F 97.8 F Pulse Rate 62 59 56 Respiratory 16 16 16 Rate Blood Pressure 118/57 103/52 (mmHg) O2 Sat by Pulse 98 97 96 Oximetry 11/06/18 07:47 Temperature Pulse Rate 56 Respiratory 16 Rate Blood Pressure 118/55 (mmHg) O2 Sat by Pulse 97 Oximetry EXAMINATION: Lungs were clear to ausculation. Cardiac rhythm was regular. No carotid bruit. No rash noted. Full eyelids noted bilaterally with no curtaining, magan's twitch, good facial strength, no dysarthria. Full extraocular movements with no nystagmus, no diplopia. No pronator drift. Faster to do movements today. Generalized weakness at 5-/5 to 4+/5 with variability in arms and legs. Slightly shaky with finger to nose movements. No ataxia note. Able to do heel to mckee movements. Reflexes 1+ in the upper extremities and absent in the lower extremities. DATA: Laboratory Results - last 24 hr 11/05/18 11/05/18 11/05/18 11:52 17:24 20:04 WBC RBC Hgb Hct MCV MCH MCHC RDW Plt Count MPV Neut % (Auto) Lymph % (Auto) [place] % (Auto) Eos % (Auto) Baso % (Auto) Absolute Neuts (auto) Absolute Lymphs (auto) Absolute Monos (auto) Absolute Eos (auto) Absolute Basos (auto) Absolute Nucleated RBC Nucleated RBC % Sodium Potassium Chloride Carbon Dioxide Anion Gap BUN Creatinine Est GFR ( Amer) Est GFR (Non-Af Amer) BUN/Creatinine Ratio Glucose POC Glucose (mg/dL) 229 H 111 H Lactic Acid 1.6 Calcium Total Bilirubin AST ALT Alkaline Phosphatase Ammonia Total Protein Albumin Globulin Albumin/Globulin Ratio Vitamin B12 Folate 11/05/18 11/05/18 11/05/18 20:04 20:04 20:04 WBC 6.3 RBC 3.90 L Hgb 10.4 L Hct 32 L MCV 82 MCH 27 MCHC 33 RDW 16 H Plt Count 283 MPV 8.0 Neut % (Auto) 75.3 Lymph % (Auto) 16.3 [place] % (Auto) 6.4 Eos % (Auto) 1.9 Baso % (Auto) 0.1 Absolute Neuts (auto) 4.7 Absolute Lymphs (auto) 1.0 Absolute Monos (auto) 0.4 Absolute Eos (auto) 0.1 Absolute Basos (auto) 0 Absolute Nucleated RBC 0 Nucleated RBC % 0 Sodium 140 Potassium 3.4 L Chloride 107 Carbon Dioxide 26 Anion Gap 7 BUN 23 Creatinine 1.01 H Est GFR ( Amer) 69.9 Est GFR (Non-Af Amer) 57.8 BUN/Creatinine Ratio 22.8 H Glucose 135 H POC Glucose (mg/dL) Lactic Acid Calcium 8.1 L Total Bilirubin 0.30 AST 13 ALT 9 Alkaline Phosphatase 72 Ammonia Total Protein 5.7 L Albumin 3.0 L Globulin 2.7 Albumin/Globulin Ratio 1.1 Vitamin B12 533 Folate 7.37 11/05/18 11/06/18 11/06/18 20:55 00:05 03:56 WBC RBC Hgb Hct MCV MCH MCHC RDW Plt Count MPV Neut % (Auto) Lymph % (Auto) [place] % (Auto) Eos % (Auto) Baso % (Auto) Absolute Neuts (auto) Absolute Lymphs (auto) Absolute Monos (auto) Absolute Eos (auto) Absolute Basos (auto) Absolute Nucleated RBC Nucleated RBC % Sodium Potassium Chloride Carbon Dioxide Anion Gap BUN Creatinine Est GFR ( Amer) Est GFR (Non-Af Amer) BUN/Creatinine Ratio Glucose POC Glucose (mg/dL) 161 H Lactic Acid 1.2 1.0 Calcium Total Bilirubin AST ALT Alkaline Phosphatase Ammonia Total Protein Albumin Globulin Albumin/Globulin Ratio Vitamin B12 Folate 11/06/18 11/06/18 11/06/18 05:37 05:37 05:37 WBC 4.8 RBC 3.57 L Hgb 9.5 L Hct 29 L MCV 82 MCH 27 MCHC 33 RDW 16 H Plt Count 228 MPV 7.9 Neut % (Auto) 54.9 Lymph % (Auto) 33.3 [place] % (Auto) 8.6 Eos % (Auto) 3.0 Baso % (Auto) 0.2 Absolute Neuts (auto) 2.6 Absolute Lymphs (auto) 1.6 Absolute Monos (auto) 0.4 Absolute Eos (auto) 0.1 Absolute Basos (auto) 0 Absolute Nucleated RBC 0 Nucleated RBC % 0.1 Sodium 139 Potassium 3.4 L Chloride 108 Carbon Dioxide 27 Anion Gap 4 BUN 18 Creatinine 0.77 Est GFR ( Amer) 95.6 Est GFR (Non-Af Amer) 79.0 BUN/Creatinine Ratio 23.4 H Glucose 93 POC Glucose (mg/dL) Lactic Acid Calcium 8.1 L Total Bilirubin AST ALT Alkaline Phosphatase Ammonia 38 Total Protein Albumin Globulin Albumin/Globulin Ratio Vitamin B12 Folate 11/06/18 07:32 WBC RBC Hgb Hct MCV MCH MCHC RDW Plt Count MPV Neut % (Auto) Lymph % (Auto) [place] % (Auto) Eos % (Auto) Baso % (Auto) Absolute Neuts (auto) Absolute Lymphs (auto) Absolute Monos (auto) Absolute Eos (auto) Absolute Basos (auto) Absolute Nucleated RBC Nucleated RBC % Sodium Potassium Chloride Carbon Dioxide Anion Gap BUN Creatinine Est GFR ( Amer) Est GFR (Non-Af Amer) BUN/Creatinine Ratio Glucose POC Glucose (mg/dL) 88 Lactic Acid Calcium Total Bilirubin AST ALT Alkaline Phosphatase Ammonia Total Protein Albumin Globulin Albumin/Globulin Ratio Vitamin B12 Folate Ammonia: 38 Impression: 53 year old woman with history of diabetes mellitus with poorly controlled glucose, left foot wound that has been slow to heal, now admitted with UTI, continued difficulty with her left foot, diffuse weakness, hypotension, incontinence of bowel and retention of urine. She is more alert on today's visit and was quicker to participate in the examination. Suspicious of sepsis as main cause of her decline. Hospitalist team is working on treatment of UTI, left foot wound with culture, blood cultures. Blood pressure better today. Sepsis may have caused acute decline in the setting of chronic problems of leg weakness and pain, and peripheral neuropathy. The incontinence of bowel is new in the last month, and the urinary retention is also subacute. Proceeding with MRI imaging of the cervical, thoracic, and lumbosacral spine as discussed in consultation yesterday. Cauda equina syndrome or cord compression could contribute albeit no sensory level was noted. Physical therapy has been ordered. Bilateral full eyelids noted with no other features of myasthenia gravis. MRI brain is planned to look for brainstem pathology that may contribute to overall picture. Further work up accordingly. Dr. Rodriguez with take over the neurology service tomorrow. Patient and hospitalist team are aware. 30 minutes was spent in patient care. Case was discussed with covering hospitalist.
--- NOTE | 2018-11-06 13:57 | CONSULT ---
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 She has failed basal/bolus, mixed and concentrated insulin pumps in the past 6-12 months. Her A1c remains >15% and she was recently approved for an insulin pump, which she has used 4-5 years ago with reported success. It will be essential to determine her insulin requirement before initiation of pump therapy. Based on her glucose results from the past 48 hours, her insulin requirement is estimated to be 90-100 units/day. She has been recommended to use concentrated U-500 insulin up 180 units/day in the past although she readily admits to non-adherence to >2 daily injections. I recommend simplifying her regimen to BID insulin dosing at discharge. We will attempt to obtain a wearable continuous glucose monitor, which may allow better monitoring overall and better detection of hypoglycemia and is essential for insulin pump use. The cause of her neurological symptoms remains obscure. She is at maximal risk for autonomic neuropathy, although the absence of resting tachycardia and rhythm monotony makes this diagnosis less likely. She has no other autoimmune syndromes that could cause autoimmune neuropathies. Neurology consult is appreciated. Diagnostic imaging (with spinal MRI is pending at this time). 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 Patient's contacted our office by phone on 11/04/18 to report that her BG had been >500mg/dL on her her meter for the previous 4 days. She also reported that her legs were numb and that she was not able to walk well. Patient was distraught and upset. She was referred to ED, as hyperglycemia alone would not explain lower extremity neurological symptoms. Initial evaluation in the ED revealed moderate hyperglycemia with admission BG 404 without anion gap. Other labs revealed normal WBC, abnormal urinalysis, intact renal function. Negative flu and CXR. Plain films of the foot did not exclude osteomyelitis. Bladder U/S show 100ml PVR without hydronephrosis. No fever at any time. Past Medical History: Type 2 diabetes mellitus with diabetic polyneuropathy Acquired hallux rigidus Type 2 diabetes mellitus with ulcer Ulcer of heel Urinary stress incontinence History of drug abuse Diabetes mellitus Hypoxia Diabetic neuropathy Chronic obstructive lung disease Medications Prior to Admission: Lisinopril TAB* [Prinivil TAB 10 MG*] 20 mg PO DAILY 10/15/17 [History Confirmed 11/05/18] Hydrocodone/Acetaminophen [Hydrocodone-Acetamin 5-325 mg] 1 tab PO Q8H PRN 05/26 [History Confirmed 11/05/18] Fluticasone-Salmeterol 250-50* [Advair Diskus 250-50*] 1 puff INH BID 09/04/18 [ History Confirmed 11/05/18] Ipratropium/Albuterol Sulfate [Iprat-Albut 0.5-3(2.5) mg/3 ml] 1 neb INH Q6H PRN 09/04/18 [History Confirmed 11/05/18] Umeclidin/Vilant 62.5 MDI(NF) [ANORO 62.5/25 Ellipta DEVICE (NF)] 1 puff INH DAILY PRN 09/04/18 [History Confirmed 11/05/18] Glucagon,Human Recombinant [Glucagon Emergency Kit] 1 mg IM DAILY PRN 11/05/18 [ History Confirmed 11/05/18] Insulin REGULAR(*) 25 units SUBCUT 1200,1700 11/05/18 [History Confirmed ] Insulin Regular, Human [Humulin R U-500 Kwikpen] 50 units SUBCUT DAILY 11/05/18 [History Confirmed 11/05/18] Inpatient Medications: Acetaminophen (Tylenol Tab*) 650 mg PO Q4H PRN PRN Reason: FEVER/PAIN Hydrocodone Bitart/Acetaminophen ([place] 5-325 Tab*) 1 tab PO Q8H PRN PRN Reason: PAIN Last Admin: 11/05/18 11:11 Dose: 1 tab Albuterol/Ipratropium (Duoneb (Albuterol 2.5 Mg/Ipratropium 0.5 Mg)) 1 neb INH Q6H PRN PRN Reason: SOB/WHEEZING Amitriptyline HCl (Elavil Tab*) 25 mg PO BEDTIME [facility] Last Admin: 11/05/18 21:00 Dose: 25 mg Aspirin (Aspirin Ec Tab*) 81 mg PO DAILY [facility] Last Admin: 11/06/18 08:13 Dose: 81 mg Dextrose (D50w Syringe 50 Ml*) 12.5 gm IV PUSH .FOR FS < 60 - SS PRN PRN Reason: FS < 60 Heparin Sodium (Porcine) (Heparin Vial(*)) 5,000 units SUBCUT Q8HR [facility] Last Admin: 11/06/18 05:47 Dose: 5,000 units Cefepime HCl (Maxipime 1 Gm In Dextrose Duplex (*)) 1 gm in 50 mls @ 100 mls/ hr IV Q12H [facility] Last Admin: 11/06/18 08:13 Dose: 100 mls/hr Insulin Glargine (Lantus(*)) 50 units SUBCUT BEDTIME [facility] Insulin Human Lispro (Humalog*) 0 units SUBCUT AC [facility]; Protocol Last Admin: 11/06/18 12:36 Dose: 5 units Insulin Human Lispro (Humalog*) 0 units SUBCUT AC [facility]; Protocol Last Admin: 11/06/18 12:37 Dose: 4 units Mometasone Furoate/Formoterol Fumar (Dulera 200/5 Mdi*) 2 puff INH 0900,2100 [facility] Last Admin: 11/06/18 07:19 Dose: 2 puff Ondansetron HCl (Zofran Inj*) 4 mg IV Q6H PRN PRN Reason: NAUSEA/VOMITING Umeclidinium/Vilanterol (Anoro 62.5/25 Ellipta Device (Nf)) 1 inh INH DAILY [facility] Last Admin: 11/06/18 08:18 Dose: Not Given Allergies/Intolerances: latex, miconazole Social History: Lives with spouse. Disabled. Several adult children. History of tobacco use. No active drug or alcohol use. Family History: Non-contributory. Review of Systems: As above. OBJECTIVE: Vital Signs: Temp Pulse Resp BP Pulse Ox 98.0 F 70 16 122/58 98 11/06/18 11:35 11/06/18 11:35 11/06/18 11:35 11/06/18 11:35 11/06/18 11:35 General: alert, pleasant, oriented, no distress ENT: neck supple, no thyromegaly, no bruit is heard Chest: CTAB, no wheezing or crackles CV: RRR, no murmur Abdomen: soft, non-tender Extremities: no edema, distal pulses intact, ulcer between L 1-2 toes Skin: warm, dry, no rash Neuro: strenght >4/5 in upper and lower extremities Psych: restricted affect, pleasant Labs: 11/04/18 21:00 268 60G 11/05/18 06:00 93 20L 11/05/18 11:30 229 60G, 22L 11/05/18 16:30 111 5L 11/05/18 20:58 161 50G 11/06/18 07:30 88 11/06/18 11:30 220 9L WBC 4.8 10^3/ul (3.5-10.8) 11/06/18 05:37 RBC 3.57 10^6/ul (4.00-5.40) L 11/06/18 05:37 Hgb 9.5 g/dl (12.0-16.0) L 11/06/18 05:37 Hct 29 % (35-47) L 11/06/18 05:37 MCV 82 fL (80-97) 11/06/18 05:37 MCH 27 pg (27-31) 11/06/18 05:37 MCHC 33 g/dl (31-36) 11/06/18 05:37 RDW 16 % (10.5-15) H 11/06/18 05:37 Plt Count 228 10^3/ul (150-450) 11/06/18 05:37 MPV 7.9 fL (7.4-10.4) 11/06/18 05:37 Neut % (Auto) 54.9 % 11/06/18 05:37 Lymph % (Auto) 33.3 % 11/06/18 05:37 [place] % (Auto) 8.6 % 11/06/18 05:37 Eos % (Auto) 3.0 % 11/06/18 05:37 Baso % (Auto) 0.2 % 11/06/18 05:37 Absolute Neuts (auto) 2.6 10^3/ul (1.5-7.7) 11/06/18 05:37 Absolute Lymphs (auto) 1.6 10^3/ul (1.0-4.8) 11/06/18 05:37 Absolute Monos (auto) 0.4 10^3/ul (0-0.8) 11/06/18 05:37 Absolute Eos (auto) 0.1 10^3/ul (0-0.6) 11/06/18 05:37 Absolute Basos (auto) 0 10^3/ul (0-0.2) 11/06/18 05:37 Absolute Nucleated RBC 0 10^3/ul 11/06/18 05:37 Nucleated RBC % 0.1 11/06/18 05:37 VBG pH 7.40 (7.32-7.43) 11/04/18 17:51 VBG pCO2 44 mmHg (41-51) 11/04/18 17:51 VBG pO2 < 38.0 mmHg (35-45) 11/04/18 17:51 VBG HCO3 25.6 mmol/L (24-28) 11/04/18 17:51 VBG O2 Saturation 65.6 % (70-80) L 11/04/18 17:51 VBG Base Excess 2.0 mmol/L (0.0-4.0) 11/04/18 17:51 Sodium 139 mmol/L (135-145) 11/06/18 05:37 Potassium 3.4 mmol/L (3.5-5.0) L 11/06/18 05:37 Chloride 108 mmol/L (101-111) 11/06/18 05:37 Carbon Dioxide 27 mmol/L (22-32) 11/06/18 05:37 Anion Gap 4 mmol/L (2-11) 11/06/18 05:37 BUN 18 mg/dL (6-24) 11/06/18 05:37 Creatinine 0.77 mg/dL (0.51-0.95) 11/06/18 05:37 Est GFR ( Amer) 95.6 (>60) 11/06/18 05:37 Est GFR (Non-Af Amer) 79.0 (>60) 11/06/18 05:37 BUN/Creatinine Ratio 23.4 (8-20) H 11/06/18 05:37 Glucose 93 mg/dL (70-100) 11/06/18 05:37 POC Glucose (mg/dL) 220 mg/dL (70-100) H 11/06/18 11:54 Lactic Acid 1.0 mmol/L (0.5-2.0) 11/06/18 03:56 Calcium 8.1 mg/dL (8.6-10.3) L 11/06/18 05:37 Magnesium 2.5 mg/dL (1.9-2.7) 11/05/18 05:21 Total Bilirubin 0.30 mg/dL (0.2-1.0) 11/05/18 20:04 AST 13 U/L (13-39) 11/05/18 20:04 ALT 9 U/L (7-52) 11/05/18 20:04 Alkaline Phosphatase 72 U/L (34-104) 11/05/18 20:04 Ammonia 38 mcmol/L (16-53) 11/06/18 05:37 Total Creatine Kinase 41 U/L (10-223) 11/04/18 17:51 Troponin I 0.00 ng/mL (<0.04) 11/04/18 17:51 C-Reactive Protein 3.62 mg/L (<8.01) 11/04/18 17:51 Total Protein 5.7 g/dL (6.4-8.9) L 11/05/18 20:04 Albumin 3.0 g/dL (3.2-5.2) L 11/05/18 20:04 Globulin 2.7 g/dL (2-4) 11/05/18 20:04 Albumin/Globulin Ratio 1.1 (1-3) 11/05/18 20:04 Vitamin B12 533 pg/mL (180-914) 11/05/18 20:04 Folate 7.37 ng/mL (>3.99) 11/05/18 20:04 TSH 0.51 mcIU/mL (0.34-5.60) 11/04/18 17:51 Cortisol 13.68 mcg/dL 11/05/18 05:21 Urine Color Yellow 11/04/18 20:58 Urine Appearance Cloudy 11/04/18 20:58 Urine pH 6.0 (5-9) 11/04/18 20:58 Ur Specific [place] 1.020 (1.010-1.030) 11/04/18 20:58 Urine Protein 2+(100 mg/dl) (Negative) A 11/04/18 20:58 Urine Ketones Trace (Negative) A 11/04/18 20:58 Urine Blood 1+ (Negative) A 11/04/18 20:58 Urine Nitrate Negative (Negative) 11/04/18 20:58 Urine Bilirubin Negative (Negative) 11/04/18 20:58 Urine Urobilinogen Negative (Negative) 11/04/18 20:58 Ur Leukocyte Esterase Trace (Negative) A 11/04/18 20:58 Urine WBC (Auto) 3+(>20/hpf) (Absent) A 11/04/18 20:58 Urine RBC (Auto) Trace(0-2/hpf) (Absent) 11/04/18 20:58 Ur Squamous Epith Cells Present (Absent) A 11/04/18 20:58 Urine Bacteria 1+ (Absent) A 11/04/18 20:58 Urine Glucose 3+(>=500 mg/dl) (Negative) A 11/04/18 20:58 Urine Opiates Screen None detected (None Detect) 11/04/18 20:58 Ur Barbiturates Screen None detected (None Detect) 11/04/18 20:58 Ur Phencyclidine Scrn None detected (None Detect) 11/04/18 20:58 Ur Amphetamines Screen None detected (None Detect) 11/04/18 20:58 U Benzodiazepines Scrn None detected (None Detect) 11/04/18 20:58 Urine Cocaine Screen None detected (None Detect) 11/04/18 20:58 U Cannabinoids Screen None detected (None Detect) 11/04/18 20:58 Serum Alcohol < 10 mg/dL (<10) 11/04/18 17:51 Influenza A (Rapid) Negative (Negative) 11/04/18 19:48 Influenza B (Rapid) Negative (Negative) 11/04/18 19:48
[2018-11-06] MEDS: Tiotropium CAP.INH* CAP.INH/18 MCG (USE ORDER SET !) INH SCH (16:29)
[2018-11-06] MEDS: Acetaminophen TAB* 325 MG PO PRN (17:47)
[2018-11-06] MEDS ORDERED: Insulin GLARGINE(*) 1 UNITS UNIT SUBCUT SCH (21:00)
[2018-11-06] MEDS: Amitriptyline TAB* 25 MG PO SCH (22:22)
[2018-11-07] MEDS: HYDROcodone/ACETAMIN 5-325 MG* 1 TAB PO PRN (05:39)
[2018-11-07] MEDS: Heparin VIAL(*) 5000 UNITS/ML VIAL (FIVE THOUSAND) SUBCUT SCH ×3 (05:40→22:04)
[2018-11-07] MEDS: Cefepime 1 GM in Dextrose(*) 1 GM/50 ML BAG IV SCH ×2 (07:35→19:40)
[2018-11-07] MEDS: Aspirin EC TAB* 81 MG TAB.EC PO SCH (07:47)
[2018-11-07] MEDS ORDERED: Spiriva Inhaler DEVICE* 1 EACH DEVICE INH ONE (09:00)
[2018-11-07] MEDS: Insulin LISPRO* 1 UNITS UNIT SUBCUT SCH ×6 (10:08→18:26)
[2018-11-07] MEDS ORDERED: Gadoteridol* (CONTRAST) 279.3 MG/ML 10 ML IV ONE (10:22)
[2018-11-07] MEDS: Tiotropium CAP.INH* CAP.INH/18 MCG (USE ORDER SET !) INH SCH (14:11)
[2018-11-07] MEDS: Mometasone/Formoter 200/5 MDI INH SCH ×2 (14:27→20:40)
--- NOTE | 2018-11-07 17:56 | PN ---
Subjective Date of Service: 11/07/18 Interval History: Feeling much better, much stronger. Was diaphoretic in the MRI [place] spine series and IV contrast not able to be obtained. Attests was on 60U am, 25U lunch, 25U 4pm most recently with sugars in the 220- 430. Blood pressure stable. Walked with PT 75 ft with rolling walker left 1st-2nd toe interspace with necrotic ulceration x 1 month. not able to pursue hyperbaric because of uncontrolled hyperglycemia. Does not remember her senior nuclear medicine technologist name. hypoglycemic to 60s overnight Had been on bactrim then on 2/5 started 10 days of Augmentin then likely completed just before admission. Family History: Unchanged from Admission Social History: Unchanged from Admission Past Medical History: Unchanged from Admission Objective Active Medications: Acetaminophen (Tylenol Tab*) 650 mg PO Q4H PRN PRN Reason: FEVER/PAIN Last Admin: 11/06/18 17:47 Dose: 650 mg Hydrocodone Bitart/Acetaminophen ([place] 5-325 Tab*) 1 tab PO Q8H PRN PRN Reason: PAIN Last Admin: 11/07/18 05:39 Dose: 1 tab Albuterol/Ipratropium (Duoneb (Albuterol 2.5 Mg/Ipratropium 0.5 Mg)) 1 neb INH Q6H PRN PRN Reason: SOB/WHEEZING Amitriptyline HCl (Elavil Tab*) 25 mg PO BEDTIME [facility] Last Admin: 11/06/18 22:22 Dose: 25 mg Aspirin (Aspirin Ec Tab*) 81 mg PO DAILY [facility] Last Admin: 11/07/18 07:47 Dose: 81 mg Dextrose (D50w Syringe 50 Ml*) 12.5 gm IV PUSH .FOR FS < 60 - SS PRN PRN Reason: FS < 60 Heparin Sodium (Porcine) (Heparin Vial(*)) 5,000 units SUBCUT Q8HR [facility] Last Admin: 11/07/18 14:13 Dose: 5,000 units Cefepime HCl (Maxipime 1 Gm In Dextrose Duplex (*)) 1 gm in 50 mls @ 100 mls/ hr IV Q12H [facility] Last Admin: 11/07/18 07:35 Dose: 100 mls/hr Insulin Glargine (Lantus(*)) 40 units SUBCUT BEDTIME [place] Insulin Human Lispro (Humalog*) 0 units SUBCUT AC [facility]; Protocol Last Admin: 11/07/18 14:12 Dose: 5 units Insulin Human Lispro (Humalog*) 0 units SUBCUT AC [facility]; Protocol Last Admin: 11/07/18 14:13 Dose: 2 units Mometasone Furoate/Formoterol Fumar (Dulera 200/5 Mdi*) 2 puff INH 0900,2100 [facility] Last Admin: 11/07/18 14:27 Dose: 2 puff Ondansetron HCl (Zofran Inj*) 4 mg IV Q6H PRN PRN Reason: NAUSEA/VOMITING Tiotropium [place] (Spiriva Cap.Inh*) 1 cap INH DAILY [facility] Last Admin: 11/07/18 14:11 Dose: 1 cap Vital Signs - 8 hr 11/07/18 12:14 Temperature 98.3 F Pulse Rate 75 Respiratory 16 Rate Blood Pressure 145/68 (mmHg) O2 Sat by Pulse 97 Oximetry Oxygen Devices in Use Now: None Appearance: NAD Eyes: No Scleral Icterus Ears/Nose/Mouth/Throat: NL Teeth, Lips, Gums Respiratory: Symmetrical Chest Expansion and Respiratory Effort, - - reduced at bilateral bases. Cardiovascular: NL Sounds; No Murmurs; No JVD, RRR Abdominal: NL Sounds; No Tenderness; No Distention, No Hepatosplenomegaly Extremities: No Edema Skin: - - necrotic ulceration between 1st-2nd toe interspace. inferior toe with superficial ulceration Neurological: Alert and Oriented x 3 Nutrition: Taking PO's Result Diagrams: 11/06/18 05:37 11/06/18 05:37 Additional Lab and Data: Laboratory Results - last 24 hr 11/06/18 11/07/18 11/07/18 22:26 03:24 03:47 POC Glucose (mg/dL) 84 62 L 63 L 11/07/18 11/07/18 11/07/18 04:40 07:40 12:07 POC Glucose (mg/dL) 115 H 163 H 192 H 11/07/18 17:24 POC Glucose (mg/dL) 147 H Microbiology and Other Data: Microbiology 11/05/18 20:04 Blood Venous Aerobic Blood Culture - Preliminary No Growth Day 1 11/05/18 20:04 Blood Venous Anaerobic Blood Culture - Preliminary No Growth Day 1 11/05/18 20:04 Blood Venous Aerobic Blood Culture - Preliminary No Growth Day 1 11/05/18 20:04 Blood Venous Anaerobic Blood Culture - Preliminary No Growth Day 1 11/04/18 20:58 Urine Urine Culture - Final Escherichia Coli 11/04/18 18:32 Nasal Influenza Types A,B Antigen - Final Specimen received for Influenza A/B Molecular testing Assess/Plan/Problems-Billing Assessment: 53yo F with PMH of poorly controlled type 2 DM, severe diabetic neuropathy, HTN , COPD, anxiety, depression, who presented to ED with c/o weakness. Course complicated by severe hypotension despite being on CFTX for Ecoli UTI. Improved on Cefepime. Has necrotic ulceration at left 1st-2nd toe interspace that had been treated with bactrim and then 10 days Augmentin just prior to admission. - Patient Problems (1) Sepsis Current Visit: Yes Status: Acute Comment: - Became severely hypotensive but no other SIRS criteria . Of note was on bactrim and then Augmentin x 10 days as an outpatient. - continue Cefepime. - Hold lisinopril. - f/u cultures. (2) Foot ulcer Current Visit: Yes Status: Acute Code(s): L97.509 - NON-PRESSURE CHRONIC ULCER OTH PRT UNSP FOOT W UNSP SEVERITY SNOMED Code(s): 92642064 Comment: - Has left inferior hallux wound which is chronic and superficial. However the 1st-2nd interspace has small necrotic ulceration that is more worrisome for active infecton though no current drainage. It is near to hardware of the first metatarsal. Has not been able to pursue bariatric treatment as poorly conrolled sugars. Package Winder Baudilio Luong. CRP only 3.6 on admission. Had been on bactrim and then Augmentin as an outpatient. Continue Cefepime and monitor. (3) Generalized weakness Current Visit: Yes Status: Acute Code(s): R53.1 - WEAKNESS SNOMED Code(s) : 37663931 Comment: - No focal findings on exam. - Has had urinary retention for a month and bowel incontinence for 2 months according to information she gave to Neurologist. - MRI C,T,L spine noncontast only with some degeneartive disease. Appreciate neurology recs. - Believe her weakness is related to infection (4) Diabetes mellitus, insulin dependent (IDDM), uncontrolled Current Visit: Yes Status: Chronic Code(s): E10.65 - TYPE 1 DIABETES MELLITUS WITH HYPERGLYCEMIA SNOMED Code(s): 50256672 Comment: hypoglycemic to 60s while on 50U qpm last night. Taking U-500 at home - 60 in AM, 25 at noon and 25 in afternoon - Will try to transition back to predominantly AM dosing. 10U tonight and 30U at 0800 daily in AM. A1C of 15.7 likely worsened in setting of chronic infection. (5) COPD (chronic obstructive pulmonary disease) Current Visit: No Status: Acute Code(s): J44.9 - CHRONIC OBSTRUCTIVE PULMONARY DISEASE, UNSPECIFIED SNOMED Code(s): 72399389 Comment: - No evidence of exacerbation (6) UTI (urinary tract infection) Current Visit: No Status: Acute Comment: U cx positive for E. coli.currently on cefepime for this plus toe ulcer Status and Disposition: likely d/c tomorrow medicine inpatient.
--- NOTE | 2018-11-07 18:39 | CONS ---
NEUROLOGY FOLLOWUP CONSULTATION: DATE OF FOLLOWUP: 11/07/18. HOSPITALIST: Dr. Brunner. LOCATION: She is in room 332. CHIEF COMPLAINT: Weakness. INTERVAL HISTORY: Since yesterday, Lesly feels much better. She feels that her strength is much improved from when she first came in. She says that normally at home she does use a walker at times, but she became very weak such as she could hardly stand when she came in. She feels she is probably back to her baseline as best as I can tell. She does have chronic numbness and pain in her feet, which she attributes to "sugar." MEDICATIONS: Medications are reviewed and she is on: Heparin 5000 units subcu q.8 hours, Zofran 4 mg IV q.6 hours p.r.n. nausea, albuterol, hydrocodone 5/325 one p.o. q.8 hours as needed for pain, Cefepime 1 g q.12 hours IV, amitriptyline 25 mg p.o. at bedtime, insulin sliding scale, and Spiriva 1 p.o. daily. PHYSICAL EXAMINATION: On examination, she is thin, but appears currently well hydrated. Temperature most recently 98.3, blood pressure 145/68, heart rate 75. Neurologically, facial musculature is seen symmetric and speech is clear. She has some breakaway weakness diffusely, but more severe weakness and atrophy of intrinsic hand muscles. She appears to have hip flexor weakness as well at least in the grade IV range. She is areflexic. She is a bit tremulous. She is able to provide meaningful history with generally simple, but fluent language. DIAGNOSTIC STUDIES/LAB DATA: Laboratory data includes MRIs of the lumbar, thoracic, and cervical spine, which I reviewed the images of. There is no significant stenosis at any level. There is some lateral recess stenosis and disk herniations, but nothing that appears to abut the cord. Other laboratory data includes CBC from yesterday notable for white blood cell count down to 4.8, chemistries today notable for [id number] glucose of 192. She had a normal creatinine kinase and TSH when she came in. IMPRESSION: Impression is that of diffuse weakness from sepsis in a patient with diabetic neuropathy. She describes symptoms consistent with painful sensory motor polyneuropathy as well as diabetic autonomic neuropathy. I do not see any evidence of an additional neuromuscular disease or signs or symptoms of myelopathy. I do not have any further recommendations at this point in time. Please contact us if further neurological input is desired. [id number]/[facility] #: [id number] DEWEY
[2018-11-07] MEDS ORDERED: Insulin GLARGINE(*) 1 UNITS UNIT SUBCUT ONE (19:00)
[2018-11-07] MEDS ORDERED: Insulin GLARGINE(*) 1 UNITS UNIT SUBCUT SCH (21:00)
[2018-11-07] MEDS: Amitriptyline TAB* 25 MG PO SCH (22:04)
[2018-11-08] MEDS: Heparin VIAL(*) 5000 UNITS/ML VIAL (FIVE THOUSAND) SUBCUT SCH ×2 (05:11→14:32)
[2018-11-08] MEDS: Acetaminophen TAB* 325 MG PO PRN (07:38)
[2018-11-08] MEDS: Tiotropium CAP.INH* CAP.INH/18 MCG (USE ORDER SET !) INH SCH (07:39)
[2018-11-08] MEDS: Cefepime 1 GM in Dextrose(*) 1 GM/50 ML BAG IV SCH (07:39)
[2018-11-08] MEDS: Mometasone/Formoter 200/5 MDI INH SCH (07:39)
[2018-11-08] MEDS: Aspirin EC TAB* 81 MG TAB.EC PO SCH (07:39)
[2018-11-08] MEDS ORDERED: Insulin GLARGINE(*) 1 UNITS UNIT SUBCUT SCH (08:00)
[2018-11-08] MEDS: Insulin LISPRO* 1 UNITS UNIT SUBCUT SCH ×4 (09:02→14:33)
[2018-11-08 14:06] VITALS: BP 135/71
--- NOTE | 2018-11-08 15:19 | DS ---
DISCHARGE SUMMARY: DATE OF ADMISSION: 11/04/18 DATE OF DISCHARGE: 11/08/18 ADMITTING PROVIDER: Gale Becker NP PRIMARY CARE PHYSICIAN: Zoya Patten MD. CONSULTING ANTIQUE JEWELRY REPAIRER: Dr. St. CONSULTING NEUROLOGIST: Dr. Chen. ATTENDING PHYSICIAN ON DAY OF DISCHARGE: Piotr Brunner MD CHIEF COMPLAINT: Generalized weakness; hyperglycemia in the setting of uncontrolled diabetes mellitus. PRINCIPAL DIAGNOSIS: Urinary tract infection with Escherichia coli; concern for left diabetic foot infection at interspace between the first and second toe ; episode of severe hypotension while hospitalized. HISTORY OF PRESENT ILLNESS/HOSPITAL COURSE: Lesly Mcgregor is a 53-year-old female with past medical history of insulin-dependent diabetes mellitus (poorly controlled A1c 15.7), anxiety, depression, peripheral neuropathy likely secondary to diabetes, COPD, osteoarthritis, subacute left toe ulceration (and of not has juan carlos in 1st toe). Please see H&P for full details, but main concern seemed to be of weakness and uncontrolled blood sugars. She was admitted to the hospitalist service and found to have urinalysis suspicious for urinary tract infection despite being most recently on Augmentin for 10 days and before that Bactrim (both for the foot infection). Urinalysis showed trace leukocyte esterase, 3+ wbc's, 1+ bacteria. This eventually grew >100K E. coli that was pansensitive except for ampicillin. She was empirically started on ceftriaxone. On Hospital day #2 she developed for severe hypotension with manual blood pressure recordings as low as 76/42. She was bolused fluids and changed to cefepime with improvement in pressure. AM cortisol was 13.68. She never had leukocytosis, was afebrile throughout course. Blood cultures have been negative x2 days. Influenza swabs were negative. She had a CT of the head on 11/04/18, which showed mild sinus disease. Chest x-ray, 11/04/18 showed no active cardiopulmonary disease. She had an abdomen bladder ultrasound , which demonstrated debris within the bladder with mild bladder wall thickening. No hydronephrosis. She was seen in consultation by Neurologist Dr. Nneka Chen given concern for generalized weakness and possible urinary and fecal incontinence as an outpatent and scan for a cervical, thoracic and lumbar spine MRIs were obtained on 11/07/18: Cervical spine MRI showed degenerative disease with osteoarthritis most pronounced at C5-C6 with the left-sided disk protrusion. There is mild narrowing in the central canal at this level with bilateral moderate neural foraminal narrowing. Thoracic spine MRI demonstrated degenerative disk disease with right-sided disk protrusion at T7-T8 and T11-T12. There is mild narrowing of the central canal at T7-T8. No significant neural foraminal narrowing. Lumbar spine MRI demonstrated degenerative disk disease most severe at L2-L3 and L4-L5 to cause moderate neural foraminal stenosis as described. These findings were not concerning to Neurology (Dr. Rodriguez saw in follow-up). They also had checked ammonia which was normal. B12 was 533, folate was 7.37. She worked with physical therapy and they thought she would benefit from home physical therapy. Her blood sugars were initially 404 on admission in the setting of infection and her outpatient Powder Worker Tnt Dr. St was consulted. He recommended 50 units of U-500 twice a day upon discharge and lispro 12 units t.i.d. a.c. and arrangement of continuous glucose monitor and plan for insulin pump likely next Wednesday11/16/18. Her sugars later proved labile as she dipped down to low of 62 advanced practice registered nurse on 11/07/18 after getting her 50 units of Lantus the night prior. She says she has been eating a normal amount of food while in the hospital and a history of nocturnal hypoglycemia. During the last 2 days of hospitalization her sugars have been mostly between 89 and mid 100s on total of 40 to 50 units daily. I am recommending that she initially start 30 units of the U-500 daily with close monitoring but may need up-titration as an outpatient if she liberalizes her diet. Of note, she has active infections which may elevate her blood sugars. She is being discharged on ciprofloxacin 500 mg p.o. b.i.d. for 4 more days to treat both the foot infection and urinary tract infection. She should establish care with Dr. Shaw and followup with Dr. Luong, her foot piece assembler. There have been some consideration for hyperbaric treatment as an outpatient but she reports this was ulimately not encouraged due to the uncontrolled diabetes. Her lisinopril was held during admission in the setting of a severe hypotension and infection. These have improved somewhat and recommending restarting at a lower dose of 10 mg versus original 20 mg daily. DISCHARGE MEDICATIONS: Include: 1. Hydrocodone and acetaminophen 1 tablet p.o. q.6 hours p.r.n. 2. Ipratropium albuterol nebulizer inhaled q.6 hours p.r.n. 3. Aspirin 81 mg daily. 4. Ciprofloxacin 500 mg p.o. b.i.d. for 3 more tabs. 5. Advair Diskus 1 puff inhaled b.i.d. 6. Insulin U-500. Initial Recommendations from Dr. St to discharge on 50 units twice a day but she subsequently developed nocturnal hypoglycemia to 60s. I am recommending 30 units twice a day initially until he can follow up with him again along with supplemental meal time coverage as needed given the reduced requirements over the last few days since he saw her. 7. Anoro Ellipta 1 puff inhaled daily. FOLLOWUP: Please follow up with Dr. Patten within [address] within [address] Luong within 1 to [address] Juan Manuel Shaw within 1 to 2 weeks. DISCHARGE DIET: Heart healthy, carbohydrate consistent. TIME SPENT: Time spent on this discharge 45 minutes. [id number]/[facility] #: [id number] [facility]PITAL[facility]ica
== END 2018-11-08 15:15 | disposition home or self-care (01) | DRG 720 ==
LOC: ED 17:06 → SSU 22:37 → OBSVTOIN 11-05 20:05
PROVIDERS: ADMIT Pediatrics; ATTEND Internal Medicine
DX: A41.9 Sepsis, unspecified organism (principal); N39.0 Urinary tract infection, site not specified; B96.20 Unspecified Escherichia coli [E. coli] as the cause of diseases classified elsewhere; E11.65 Type 2 diabetes mellitus with hyperglycemia; L08.9 Local infection of the skin and subcutaneous tissue, unspecified; I95.9 Hypotension, unspecified; E11.42 Type 2 diabetes mellitus with diabetic polyneuropathy; E11.621 Type 2 diabetes mellitus with foot ulcer; L97.529 Non-pressure chronic ulcer of other part of left foot with unspecified severity; F41.9 Anxiety disorder, unspecified; F32.9 Major depressive disorder, single episode, unspecified; R15.9 Full incontinence of feces; J44.9 Chronic obstructive pulmonary disease, unspecified; M19.90 Unspecified osteoarthritis, unspecified site; M47.9 Spondylosis, unspecified; M51.36 Other intervertebral disc degeneration, lumbar region; R09.02 Hypoxemia; R33.9 Retention of urine, unspecified; M51.34 Other intervertebral disc degeneration, thoracic region; I10 Essential (primary) hypertension; Z79.4 Long term (current) use of insulin; Z79.51 Long term (current) use of inhaled steroids; Z79.899 Other long term (current) drug therapy; Z88.8 Allergy status to other drugs, medicaments and biological substances; Z91.040 Latex allergy status; Z87.891 Personal history of nicotine dependence
CPT/HCPCS: 36415; 70450; 71045; 72141; 72146; 72148; 76770; 80048; 80053; 80307; 80320; 81003; 81015; 82140; 82533; 82550; 82607; 82746; 82803; 83605; 83735; 84443; 84484; 85025; 86140; 87040; 87077; 87086; 87186; 93005; 94640; 99283; A9270-GY; G0480; J0692; J0696; J1644; J3475

== ENCOUNTER 2018-12-07 22:27 | Emergency (ER) | payer OTHER ==
--- NOTE | 2018-12-07 22:53 | ED ---
HPI Diabetic - HPI Summary HPI Summary: LEVEL 5 CAVEAT DUE TO PATIENT IS UNRESPONSIVE This patient is a 53 year old F brought in by ambulance to ED with a chief complaint of low blood sugar since HOSPITAL ADMINISTRATIVE ASSISTANT. Her family called EMS. Upon arrival, patients glucose level was at 44. HOSPITAL ADMINISTRATIVE ASSISTANT, EMS gave 200mL of D10. The patient has an insulin pump that is currently on. The patient rates the pain 0/10 in severity. Symptoms aggravated by nothing. Symptoms alleviated by nothing. - History Of Current Complaint Chief Complaint: EDDiabeticProb Hx Obtained From: EMS Hx From Patient Unobtainable Due To: Other - LEVEL 5 CAVEAT DUE TO PATIENT IS UNRESPONSIVE Hx Last Menstrual Period: unknown Onset/Duration: Sudden Onset, Lasting Minutes, Still Present Timing: Minutes Severity Currently: None Character: Other - unresponsive Aggravating: Nothing Alleviating: Nothing - Allergies/Home Medications Allergies/Adverse Reactions: Allergies Allergy/AdvReac Type Severity Reaction Status Date / Time latex Allergy Hives Verified 05/26/18 10:30 miconazole Allergy Blisters Verified 05/26/18 10:30 PMH/Surg Hx/FS Hx/Imm Hx Endocrine/Hematology History: Reports: Hx Diabetes Denies: Hx Anticoagulant Therapy, Hx Blood Disorders, Hx Blood Transfusions, Hx Bone Marrow Disease, Hx Thyroid Disease, Hx Anemia, Hx Unexplained Bleeding Cardiovascular History: Reports: Hx Hypertension Denies: Hx Pacemaker/ICD, Other Cardiovascular Problems/Disorders Respiratory History: Reports: Hx Chronic Obstructive Pulmonary Disease (COPD) - DX ON 10/2016, Other Respiratory Problems/Disorders - HYPOXIA, USES O2 AT 2.5 L NC PRN Denies: Hx Asthma GI History: Denies: Hx Ulcer, Other GI Disorders History: Reports: Hx Kidney Infection, Other Problems/Disorders - URINARY RETENTION Denies: Hx Dialysis, Hx Renal Disease Musculoskeletal History: Reports: Hx Arthritis - BILATERAL HANDS, BACK, Hx Back Problems, Other Musculoskeletal History - INCARCERATED RIGHT INGUINAL HERNIA- 2017.LEFT BIG TOE HARDWARE TO BE REMOVED Sensory History: Reports: Hx Contacts or Glasses - GLASSES, Hx Vision Problem - Blurriness Denies: Hx Eye Injury, Hx Eye Prosthesis, Hx Glaucoma, Hx Legally Blind, Hx Macular Degeneration, Hx Deafness, Hx Hearing Aid, Hx Hearing Problem, Other Sensory Impairments Opthamlomology History: Reports: Hx Contacts or Glasses - GLASSES, Hx Vision Problem - Blurriness Denies: Hx Eye Injury, Hx Eye Prosthesis, Hx Glaucoma, Hx Legally Blind, Hx Macular Degeneration, Other Sensory Impairments Neurological History: Reports: Hx Peripheral Neuropathy, Other Neuro Impairments /Disorders - Numbness and tingling Denies: Hx Dementia, Hx Seizures Psychiatric History: Reports: Hx Anxiety, Hx Depression Denies: Hx Panic Disorder - Surgical History Surgery Procedure, Year, and Place: LEFT FOOT BIG TOE - [facility] - SCREWS 2009;. HERNIA REPAIR 10/15/16 INCARCERATED INDIRECT INGUINAL HERNIA; Hx Anesthesia Reactions: No Infectious Disease History: No Infectious Disease History: Denies: Hx Hepatitis, Hx Human Immunodeficiency Virus (HIV), History Other Infectious Disease, Traveled Outside the [place] in Last 30 Days - Family History Known Family History: Positive: Diabetes - Social History Alcohol Use: None Hx Substance Use: Yes Substance Use Type: Reports: None Substance Use Comment - Amount & Last Used: Hx Tobacco Use: Yes Smoking Status (MU): Former Smoker Type: Cigarettes Amount Used/How Often: 1 PACK PER 3 DAYS Have You Smoked in the Last Year: Yes Review of Systems Positive: Other - low blood sugar Neurological: Other - patient is unresponsive All Other Systems Reviewed And Are Negative: No Physical Exam - Summary Physical Exam Summary: VITAL SIGNS: Reviewed. GENERAL: Patient is a well-developed and nourished FEMALE who is lying comfortable in the stretcher. Patient is not in any acute respiratory distress. HEAD AND FACE: No signs of trauma. No ecchymosis, hematomas or skull depressions. No sinus tenderness. EYES: PERRLA, EOMI x 2, No injected conjunctiva, no nystagmus. EARS: Hearing grossly intact. Ear canals and tympanic membranes are within normal limits. MOUTH: Oropharynx within normal limits. NECK: Supple, trachea is midline, no adenopathy, no JVD, no carotid bruit, no c- spine tenderness, neck with full ROM. CHEST: Symmetric, no tenderness at palpation LUNGS: Clear to auscultation bilaterally. No wheezing or crackles. CVS: Regular rate and rhythm, S1 and S2 present, no murmurs or gallops appreciated. ABDOMEN: Soft, non-tender. No signs of distention. No rebound no guarding, and no masses palpated. Bowel sounds are normal. EXTREMITIES: FROM in all major joints, no edema, no cyanosis or clubbing. NEURO: Alert and oriented x 3. No acute neurological deficits. Patient is not answering questions. SKIN: Dry and warm Triage Information Reviewed: Yes Vital Signs On Initial Exam: Initial Vitals Temp Pulse Resp BP Pulse Ox 96.1 F 62 14 191/84 97 12/07/18 22:35 12/07/18 22:35 12/07/18 22:35 12/07/18 22:35 12/07/18 22:35 Vital Signs Reviewed: Yes Completion Of Physical Exam Limited Due To: Level 5 - LEVEL 5 CAVEAT DUE TO PATIENT IS UNRESPONSIVE Diagnostics - Vital Signs Vital Signs Temp Pulse Resp BP Pulse Ox 12/07/18 22:35 96.1 F 62 14 191/84 97 - Laboratory Result Diagrams: 12/07/18 22:55 12/07/18 22:55 Lab Statement: Any lab studies that have been ordered have been reviewed, and results considered in the medical decision making process. Diabetic Course/Dx - Course Assessment/Plan: LEVEL 5 CAVEAT DUE TO PATIENT IS UNRESPONSIVE. This patient is a 53 year old F brought in by ambulance to ED with a chief complaint of low blood sugar since HOSPITAL ADMINISTRATIVE ASSISTANT. The pt woke up and states she is warm but is stable. She will be discharged home with dx including hypoglycemia and hypothermia. - Diagnoses Provider Diagnoses: Hypoglycemia, Hypothermia Discharge - Sign-Out/Discharge Documenting (check all that apply): Patient Departure Patient Received Moderate/Deep Sedation with Procedure: No - Discharge Plan Condition: Stable Disposition: HOME Referrals: Zoya Patten MD [Primary Care Provider] - Additional Instructions: Please return to the emergency department with any new or worsening symptoms. Follow up with your primary care provider in 2-3 days. - Attestation Statements Document Initiated by Scribe: Yes Documenting Scribe: Viraj Grant Provider For Whom Scribe is Documenting (Include Credential): Angelo Vargas MD Scribe Attestation: Viraj Blanca, scribed for Angelo Vargas MD on 12/08/18 at 0330. Status of Scribe Document: Ready
[2018-12-07 23:09] LABS: ABS Basophils 0 10^3/ul (0-0.2); ABS Eosinophils 0.1 10^3/ul (0-0.6); ABS Monocytes 0.5 10^3/ul (0-0.8); ABS Neutrophils 6.4 10^3/ul (1.5-7.7); ABS Nucleated RBC 0 10^3/ul; Eosinophil % 0.8 %; Hematocrit 32 % (33-41); Hemoglobin 10.7 g/dL (12.0-16.0); Lymphocyte % 12.2 %; Mean Corpuscular HGB Conc 33 g/dL (31-36); Mean Corpuscular Hemoglobin 28 pg (27-31); Mean Corpuscular Volume 84 fL (80-97); Mean Platelet Volume 7.4 fL (7.4-10.4); Nucleated Red Blood Cells % 0.1; Platelet Count 289 10^3/uL (150-450); Red Blood Count 3.86 10^6 /uL (3.70-4.87); Red Cell Distribution Width 17 % (10.5-15); White Blood Count 7.9 10^3/uL (3.5-10.8)
[2018-12-07 23:22] LABS: Albumin 3.5 g/dL (3.2-5.2); Albumin/Globulin Ratio 1.3 (1-3); BUN/Creatinine Ratio 23.6 (8-20); Calcium 8.7 mg/dL (8.6-10.3); EGFR African American 80.9 (>60); EGFR Non-African American 66.9 (>60); Globulin 2.8 g/dL (2-4); Potassium 3.7 mmol/L (3.5-5.0); Total Bilirubin 0.6 mg/dL (0.2-1.0); Total Protein 6.3 g/dL (6.4-8.9)
--- OUTSIDE RECORDS SUMMARY | 2018-12-08 00:05 | XMS REPORT | Continuity of Care Document ---
:1965 External Reference #:[id number] Author Name Nahomi Mckenna Care Team Providers Name Role Phone Zoya Patten MD Primary Care Physician Unavailable Payers Date Identification Numbers Payment Provider Subscriber Effective: 2016 Policy Number: [id number] Carrollghassan Garcia Meche Group Number: [id number] [address] PayID: [id number] [place] [address] Expires: 2016 Policy Number: [id number] [employer] Lesly Garcia Meche PayID: [id number] [address] [address] TARIK Julio [address] Advance Directives Type Date Description Status Comment Other Directive 07/23/2017 Health Care Proxy Current and Verified Problems Date Description Provider Status Onset: 10/20/2016 Chronic obstructive lung disease Khai Lam M.D. Active Onset: 10/20/2016 Diabetic neuropathy Khai Lam M.D. Active Onset: 10/20/2016 Hypoxia Khai Lam M.D. Active Onset: 10/20/2016 Diabetes mellitus Khai Lma M.D. Active Onset: 10/20/2016 History of drug abuse Khai Lam M.D. Active Note: crack cocaine - last 2012 Onset: 10/20/2016 Urinary incontinence Khai Lam M.D. Active Note: stress incontinence Onset: 10/20/2016 Ulcer of heel Khai Lam M.D. Active Onset: 09/07/2018 Type 2 diabetes mellitus with ulcer Pablo Elizabeth MD Active Onset: 09/07/2018 Acquired hallux rigidus Pablo Elizabeth MD Active Onset: 09/07/2018 Type 2 diabetes mellitus with diabetic Pablo Elizabeth MD Active polyneuropathy Family History Date Family Member(s) Observation Comments Father unknown Mother Unknown Siblings 4 [...] Use Denies Drug Use Smoking Status Reviewed: 12/05/18 Patient is a former smoker Exercise Type/Frequency Exercises sporadically clean house Allergies, Adverse Reactions, Alerts Date Description Reaction Status Severity Comments 10/20/2016 Aspirin migraine w/ generic Active nausea 10/20/2016 Latex Active break out 10/16/2016 NKDA Inactive Medications Medication Date Status Form Strength Qnty SIG Indications Ordering Provider Adriel Contour 11/25/ Active Strips 150un test blood Zavala Blood Glucose 2019 its sugar 4 MD Alma Rosa Test Strips times daily and prn for insulin pump [facility] Quad Cane 11/24/ Active Misc 1unit Use while L97.529 Gustavo 2019 s ambulating AYESHA Mladonado Advair Diskus 11/24/ Active Aerosol 500-50mcg 60uni 1 puff J44.9 Gustavo 2019 /Dose ts twice AYESHA Maldonado daily. Rinse mouth after use Lisinopril 11/24/ Active Tablets 2.5mg 30tab take 1 Gustavo 2018 s tablet by AYESHA Maldonado mouth at bedtime needed Basaglar 11/21/ Active Solution 100Unit/M 15ml 40 units Zavala Kwikpen 2019 Pen-Inject L twice daily MD Alma Rosa if pump fails Blood Pressure 11/21/ Active Kit 1unit Use to test Zavala Kit 2019 s blood MD Alma Rosa pressure 2-3 times a week or when have symptoms. Admelog 11/18/ Active Solution 100Unit/M 30ml for use in Zavala 2019 L pump MD Alma Rosa Oxygen 11/09/ Active Misc 2.5 liters Gustavo 2018 at night AYESHA Maldonado and prn Atorvastatin 09/01/ Active Tablets 40mg 90tab 40mg by Gustavo Calcium 2017 s mouth daily AYESHA Maldonado Nebulizer 08/15/ Active Device 1unit use for J44.9 Gustavo 2018 s albuterol AYESHA Maldonado nebulized solution up to 4 times a day. Nebulizer 08/15/ Active Kit QS for use 4 J44.9 Gustavo Kit/Tubing/Mout 2018 times daily AYESHA Maldonado hpiece as needed Ipratropium 08/15/ Active Solution 0.5-2.5(3 90uni 1 vial in J44.9 Gustavo Bentley/Albuter 2017 )mg/3ML ts nebulizer AYESHA Maldonado ol Sulfate four times a day as needed for asthma Precision Xtra 06/09/ Active Strips 100un use 3 times E11.65 Zavala Blood Glucose 2018 its daily for MD Alma Rosa Test Strips glucose testing Precision Xtra 06/09/ Active Device 1unit use with E11.65 Zavala Monitor 2018 s glucose/ket MD Alma Rosa one strips Ventolin HFA 04/21/ Active Aerosol 108(90Bas 8unit 2 puffs by Gustavo 2017 e) s mouth four AYESHA Maldonado mcg/Act times a day as needed Lyrica 12/15/ Active Capsules 75mg 60cap 1 by mouth E11.42 Gustavo 2017 s twice a day AYESHA Maldonado Pen [place] 09/03/ Active Misc 31G X 5 100un use with Zavala 12/03" 2017 mm its lantus subq MD Alma Rosa everyday Unifine Pentips / Active Misc 31G X 5 Use With Unknown 0000 mm Lantus Once Daily Aspirin Adult / Active Tablets DR 81mg 1 by mouth Unknown Low Dose 0000 every day Lisinopril 11/21/ Hx Tablets 5mg 30tab 1 by mouth E11.65 Zavala 2018 - s every day MD Alma Rosa 2018 Lisinopril 11/18/ Hx Tablets 10mg Take by E11.65 Maddy 2019 - mouth daily Marker, 11/21/ RPA-C 2019 Amoxicillin/Cla 10/25/ Hx Tablets 875-125mg 20tab take one J01.90 Gustavo vulanate 2018 - s tablet q12 AYESHA Maldonado Potassium 11/04/ hours for 2018 10 days Advair Diskus 08/15/ Hx Aerosol 250-50mcg 60uni inhale 1 J44.9 Gustavo 2018 - /Dose ts puff by AYESHA Maldonado 11/24/ mouth twice 2019 a day Fluconazole 08/15/ Hx Tablets 150mg 2tabs Take one B37.3 Gustavo 2018 - tablet by AYESHA Maldonado 11/09/ mouth once 2018 for vaginal yeast infection. If symptoms persist after three days take the second tablet. Humulin R U-500 07/19/ Hx Solution 500Unit/M 12ml 60 units Zavala Kwikpen 2018 - Pen-Inject L twice daily MD Alma Rosa 11/03/ before meal 2019 Fluconazole 07/11/ Hx Tablets 150mg 1tabs Take one B37.3 Zavala 2018 - tablet by MD Alma Rosa 08/15/ mouth once 2017 for vaginal yeast infection Novolog Mix 06/09/ Hx Supn (70-30)10 30ml use 70 E11.65 Zavala 70/30 Prefilled 2018 - 0Unit/ML units with MD Alma Rosa Flexpen 07/30/ first meal 2018 of the day, 50 units with last meal of the day Pioglitazone 06/09/ Hx Tablets 15mg 90tab take 15mg E11.65 Zavala HCL 2018 - s once daily( MD Alma Rosa 11/24/ Patient Not 2019 Taking) Atorvastatin 06/09/ Hx Tablets 40mg 90tab 40mg by Zavala Calcium 2018 - s mouth daily MD Alma Rosa 2017 Anoro Ellipta 06/07/ Hx Aerosol 62.5-25mc 60uni 1 J44.9 Gustavo 2018 - g/Inh ts inhalation AYESHA Maldonado 08/15/ daily 2018 Lisinopril 06/02/ Hx Tablets 10mg 1 by mouth I10 Gustavo 2018 - every day AYESHA Maldonado 2017 Capsaicin 05/24/ Hx Cream 0.1% 42.50 Apply to E11.42 Gustavo 2018 - 0gm feet up to AYESHA Maldonado 08/15/ times 2018 daily (DO Not Apply To Open Areas) Amitriptyline 05/24/ Hx Tablets 25mg 30tab 1 by mouth E11.42 Gustavo HCL 2018 - s every night AYESHA Maldonado 05/27/ at bedtime 2017 Amoxicillin/Cla 05/24/ Hx Tablets 875-125mg 20tab take one L03.116 Gustavo vulanate 2018 - s tablet q12 AYESHA Maldonado Potassium 05/27/ hours for 2018 10 days Sulfamethoxazol 05/24/ Hx Tablets 800-160mg 20tab 1 tablet by L03.116 Gustavo e/Trimethoprim 2018 - s mouth every AYESHA Maldonado DS 05/27/ 12 hours 2018 for 10 days Hydrocodone-Jass 05/24/ Hx Tablets 5-325mg 60tab take 1 E11.42 Gustavo taminophen 2018 - s tablets AYESHA Maldonado 11/09/ every 8 2018 hours for pain. Crutch Set 05/24/ Hx Misc 1Pair For use L03.116 Gustavo 2018 - while AYESHA Maldonado 11/24/ ambulating 2018 Apidra Solostar 05/13/ Hx Solution 100Unit/M 15ml 8 units E11.42 Gustavo 2018 - Pen-Inject L prior to AYESHA Maldonado 05/13/ dinner 2018 Admelog 05/13/ Hx Solution 100Unit/M 3ml 8 units sc E11.42 Gustavo Solostar 2018 - Pen-Inject L prior to AYESHA Maldonado 06/07/ dinner 2017 Lyrica 04/21/ Hx Capsules 100mg [...] 150mg 60cap take one E11.42 Gustavo 2017 - s capsule by AYESHA Maldonado 08/15/ mouth twice 2018 a day; maximum daily dose=2 Novolog Flexpen 12/15/ Hx Solution 100Unit/M 30uni inject 8 E11.42 Gustavo 2018 - Pen-Inject L ts units prior AYESHA Maldonado 05/13/ to dinner. 2017 Lisinopril 12/15/ Hx Tablets 20mg 30tab 1 by mouth I10 Gustavo 2018 - s every day AYESHA Maldonado 2017 Gabapentin 10/29/ Hx Tablets 600mg 120ta 2 by mouth M25.571 Gustavo 2018 - bs 3 times a AYESHA Maldonado 01/03/ day 2018 Januvia 10/29/ Hx Tablets 100mg 30tab 1 by mouth E11.42 Gustavo 2018 - s every day AYESHA Maldonado 2017 Cane 10/29/ Hx Misc 1unit standard E11.42 Gustavo 2018 - s adjustable AYESHA Maldonado 11/24/ height 2019 cane. Venlafaxine HCL 10/29/ Hx Caps ER 75mg 90cap Three F33.0 Gustavo ER 2018 - 24HR s capsules AYESHA Madlonado 05/24/ once daily 2017 Rid Lice Hx Shampoo 0.33-4% 236ml apply and B85.0 Gustavo Killing Shampoo 2018 - let sit 10 AYESHA Maldonado 11/09/ minutes 2018 then rinse. retreat in 7 days [...] 30tab 1 by mouth F33.0 Gustavo Oxalate 2016 - s every day AYESHA Maldonado 2017 [...] Oxalate 2017 - s once daily Erica, [employer] 07/23/ for 1 week 2017 then increase to 1 tab daily. Basaglar 01/29/ Hx Solution 100Unit/M 30ml inject 50 E11.65 Gustavo Kwikpen 2017 - Pen-Inject L units Erica, [employer] 06/09/ daily, to 2018 increase by 10 units every day BS over 300. Cymbalta 12/18/ Hx Caps DR 30mg 60cap 2 tabs M25.571 Khai 2017 - Part s daily , 06/18/ M.D. 2017 Nystatin-Triamc 12/16/ Hx Ointment 930831-0. 30uni apply to M25.571 Yohan humbertolosanjuanita 2017 - 1Unit/GM- ts affected D. 06/18/ % area twice [facility], 2017 a day M.D. Ondansetron HCL 10/20/ [...] daily Leif Ridley Sodium 2017 - s [place], 06/18/ M.D. 2017 Ventolin HFA 10/20/ Hx Aerosol 108(90Bas 8gm 2 puffs by Leif Ridley 2017 - e) mouth four , 06/18/ mcg/Act times a day M.D. 2017 as needed Lantus Solostar / Hx Solution 100Unit/M 30ml 50 units E11.621 Alaina 0000 - Pen-Inject L daily Malathi, 01/28/ M.D. 2017 Gabapentin 00/ Hx Tablets 600mg 120ta 2 by mouth M25.571 Khai 0000 - bs 3 times a [place], day M.D. 2016 Cymbalta / Hx Caps DR 30mg 1 by mouth Khai 0000 - Part every day [place], M.D. 2016 Omeprazole / Hx Capsules DR 40mg once daily Sen 0000 Ariella Beltrán, 06/18/ 2017 Gabapentin / Hx Tablets 600mg take one Unknown 0000 - tablet by 06/07/ mouth three 2018 times a day Doxycycline / Hx Tablets 100mg 1 by mouth Unknown Hyclate 0000 - twice a day 06/08/ for 60 days 2017 Doxycycline 00/ Hx Capsules 100mg Take One Unknown Hyclate 0000 - Capsule By 06/26/ Mouth Twice 2018 A Day Lisinopril / Hx Tablets 20mg take 20 mg E11.65 Unknown 0000 - daily(patie 11/21/ nt only 2019 taking 10 mg daily - 11/09/18) Hydrocodone-Jass / Hx Tablets 5-325mg Take One Unknown taminophen 0000 - Tablet By 10/17/ Mouth Every 2018 8 Hours For Pain Maximum Daily Dose Three Tablets Novolog Mix / Hx Supn (70-30)10 Inject 50 Unknown 70/30 Prefilled 0000 - 0Unit/ML Units Twice Flexpen 11/21/ Daily 2019 Anoro Ellipta / Hx Aerosol 62.5-25mc Inhale One Unknown 0000 - g/Inh puff By 10/25/ Mouth Every 2018 Day Amitriptyline / Hx Tablets 25mg Take One Unknown HCL 0000 - Tablet By 11/09/ Mouth AT 2019 Bedtime Lidocaine / Hx Cream 4% Apply To Unknown 0000 - Affected 11/09/ Area S 3 2019 To 4 Times Daily Atorvastatin / Hx Tablets 20mg Take One Unknown Calcium 0000 - Tablet By 11/09/ Mouth AT 2019 Bedtime Venlafaxine HCL / Hx Caps ER 75mg Take Three Unknown ER 0000 - 24HR Capsules By 11/09/ Mouth Every 2019 Day Cipro / Hx Tablets 500mg 1 by mouth Unknown 0000 - twice a day 2018 Humulin R U-500 / Hx Solution 500Unit/M 30 units Zavala Kwikpen 0000 - Pen-Inject L twice daily MD Alma Rosa pump 2019 fails Immunizations Description No Information Available Vital Signs Date Vital Result Comment 12/05/2018 3:57pm Height 63 inches 5'3" Heart Rate 79 /min BP Systolic Sitting 180 mmHg BP Diastolic Sitting 89 mmHg 11/24/2018 1:44pm Height 63 inches 5'3" Weight 163.00 lb w/ shoes Heart Rate 79 /min BP Systolic Sitting 154 mmHg BP Diastolic Sitting 88 mmHg BMI (Body Mass Index) 28.9 kg/m2 11/24/2018 10:48am Height 63 inches 5'3" Weight 168.00 lb Heart Rate 76 /min BP Systolic 107 mmHg BP Diastolic 65 mmHg BP Systolic Sitting 130 mmHg BP Diastolic Sitting 80 mmHg BP Systolic Standing 116 mmHg BP Diastolic Standing 72 mmHg BP Systolic Lying Down 139 mmHg BP Diastolic Lying Down 80 mmHg Body Temperature 96.9 F O2 % BldC Oximetry 96 % BMI (Body Mass Index) 29.8 kg/m2 11/21/2018 2:28pm Height 63 inches 5'3" Weight 149.00 lb Heart Rate 78 /min BP Systolic 113 mmHg Orthostatics sitting HR 63 BP Diastolic 74 mmHg Orthostatics sitting HR 63 BP Systolic Sitting 90 mmHg BP Diastolic Sitting 60 mmHg BP Systolic Standing 84 mmHg Orthostatics HR74 BP Diastolic Standing 53 mmHg Orthostatics HR74 BP Systolic Recheck 128 mmHg orthostatics, HR65 BP Diastolic Recheck 77 mmHg orthostatics, HR65 BMI (Body Mass Index) 26.4 kg/m2 10/25/2018 11:34am Height 63 inches 5'3" Weight 149.00 lb Heart Rate 78 /min BP Systolic 120 mmHg BP Diastolic 58 mmHg Body Temperature 98.2 F O2 % BldC Oximetry 97 % BMI (Body Mass Index) 26.4 kg/m2 09/27/2018 4:14pm Height 63 inches 5'3" Weight 159.00 lb w/ shoes Heart Rate 71 /min BP Systolic Sitting 148 mmHg BP Diastolic Sitting 81 mmHg BMI (Body Mass Index) 28.2 kg/m2 09/07/2018 2:03pm Height 63 inches 5'3" Weight 158.00 lb Heart Rate 75 /min BP Systolic 124 mmHg BP Diastolic 60 mmHg Respiratory Rate 16 /min Body Temperature 97.9 F Pain Level 8 BMI (Body Mass Index) 28.0 kg/m2 09/01/2018 12:00pm Height 63.5 inches 5'3.50" Weight [...] Test Result H/L Range Note Laboratory test 12/05/2018 [employer] In House Glucose 159 finding Random CBC Auto Diff 12/05/2018 [facility] White Blood 5.8 10^3/uL N 3.5-10.[address] [place] [address] [phone] Red Blood Count 3.75 10^6/uL N 3.70-4.87 Hemoglobin 10.2 g/dL Low 12.0-16.0 Hematocrit 31 % Low 33-41 Mean Corpuscular Volume 84 fL N 80-97 Mean Corpuscular Hemoglobin 27 pg N 27-31 Mean Corpuscular HGB Conc 33 g/dL N 31-36 Red Cell Distribution Width 17 % High 10.5-15 Platelet Count 268 10^3/uL N 150-450 Mean Platelet Volume 7.4 fL N 7.4-10.4 Abs Neutrophils 3.2 10^3/uL N 1.5-7.7 Abs Lymphocytes 1.9 10^3/uL N 1.0-4.8 Abs Monocytes 0.5 10^3/uL N 0-0.8 Abs Eosinophils 0.2 10^3/uL N 0-0.6 Abs Basophils 0 10^3/uL N 0-0.2 Abs Nucleated RBC 0 10^3/uL Granulocyte % 55.6 % Lymphocyte % 33.0 % Monocyte % 8.1 % Eosinophil % 2.6 % Basophil % 0.7 % Nucleated Red Blood Cells % 0.1 Comp Metabolic Panel 12/05/2018 [facility] Sodium 143 mmol/L N 135-[address] [place] [address] [phone] Potassium 4.0 mmol/L N 3.5-5.0 Chloride 110 mmol/L N 101-111 Co2 Carbon Dioxide 28 mmol/L N 22-32 Anion Gap 5 mmol/L N 2-11 Blood Urea Nitrogen 23 mg/dL N 6-24 Creatinine 0.82 mg/dL N 0.51-0.95 BUN/Creatinine Ratio 28.0 High 8-20 Calcium 8.7 mg/dL N 8.6-10.3 Total Protein 5.7 g/dL Low 6.4-8.9 Albumin 3.4 g/dL N 3.2-5.2 Globulin 2.3 g/dL N 2-4 Albumin/Globulin Ratio 1.5 N 1-3 Total Bilirubin 0.50 mg/dL N 0.2-1.0 Alkaline Phosphatase 80 U/L N 34-104 Alt 24 U/L N 7-52 Ast 22 U/L N 13-39 Egfr Non- 73.5 >60 Egfr 88.9 >60 1 Glucose 31 mg/dL Low 70-100 2 Lipid Profile 12/05/2018 [facility] Triglycerides 52 mg/dL 3 (Trig/Chol/HDL) [address] [place] [address] [phone] Cholesterol 174 mg/dL 4 HDL Cholesterol 89.6 mg/dL 5 LDL Cholesterol 74 mg/dL 6 Liver Function 12/05/2018 [facility] Total Protein 5.7 g/dL Low 6.4-8.9 Panel [address] [place] [address] [phone] Albumin 3.4 g/dL N 3.2-5.2 Globulin 2.3 g/dL N 2-4 Albumin/Globulin Ratio 1.5 N 1-3 Total Bilirubin 0.50 mg/dL N 0.2-1.0 Direct Bilirubin 0.10 mg/dL N 0.03-0.18 Indirect Bilirubin 0.4 mg/dL N 0.3-1.0 Alkaline Phosphatase 80 U/L N 34-104 Alt 23 U/L N 7-52 Ast 23 U/L N 13-39 Laboratory test finding 11/24/2018 [employer] Glucose Random 132 Laboratory test finding 11/21/2018 [employer] [facility] House Glucose Random 121 Hemoglobin A1c >14.0 High 5-7 Urine Drug 11/04/2018 [facility] Amphetamine Ur None Detected None Detect SCR ED & [address] [place] [address] [phone] Barbiturates Urine Screen None Detected None Detect Benzodiazepine Urine Screen None Detected None Detect Urine Cannabinoids Screen None Detected None Detect Urine Cocaine Screen None Detected None Detect Urine Opiates Screen None Detected None Detect Urine Phencyclidine Screen None Detected None Detect 7 Laboratory test 11/04/2018 [facility] Point of 404 mg/dL High 70-100 [address] [place] [address] [phone] Urine Culture And 11/04/2018 [facility] Urine SEE RESULT [address] [place] [address] [phone] Urinalysis Profile 11/04/2018 [facility] Urine Color Yellow [address] [place] [address] [phone] Urine Appearance Cloudy Urine Specific [place] 1.020 N 1.010-1.030 Urine pH 6.0 N 5-9 Urine Urobilinogen Negative Negative Urine Ketones Trace Abnormal Negative Urine Protein 2+(100 mg/dL) Abnormal Negative Urine Leukocytes Trace Abnormal Negative Urine Blood 1+ Abnormal Negative Urine Nitrite Negative Negative Urine Bilirubin Negative Negative Urine Glucose 3+(>=500 mg/dL) Abnormal Negative Urine White Blood Cell 3+(>20/hpf) Abnormal Absent Urine Red Blood Cell Trace(0-2/hpf) Absent Urine Bacteria 1+ Abnormal Absent Urine Squamous Epithelial Cell Present Abnormal Absent Laboratory test 11/04/2018 [facility] C Reactive 3.62 mg/L N < 8.[address] [place] [address] [phone] Creatine Kinase(CK) 41 U/L N 10-223 Alcohol < 10 mg/dL N <10 Magnesium 1.8 mg/dL Low 1.9-2.7 Troponin-I (TnI) 0.00 ng/mL <0.04 10 TSH (Thyroid Stim Horm) 0.51 mcIU/mL N 0.34-5.60 Laboratory test 11/04/2018 [facility] Point of Care 268 mg/dL High 70-100 [address] [place] [address] [phone] Rapid Influenza 11/04/2018 [facility] Influenza A NEGATIVE Negative 12 A & B Molecular [address] [place] [address] [phone] Influenza B Molecular NEGATIVE Negative Laboratory test 11/04/2018 [facility] Rapid Influenza SEE RESULT [address] [place] [address] [phone] Comp Metabolic 11/04/2018 [facility] Sodium 136 mmol/L N 135- [address] [place] [address] [phone] Potassium 3.5 mmol/L N 3.5-5.0 Chloride 101 mmol/L N 101-111 Co2 Carbon Dioxide 28 mmol/L N 22-32 Anion Gap 7 mmol/L N 2-11 Glucose 406 mg/dL High 70-100 Blood Urea Nitrogen 17 mg/dL N 6-24 Creatinine 0.86 mg/dL N 0.51-0.95 BUN/Creatinine Ratio 19.8 N 8-20 Calcium 8.6 mg/dL N 8.6-10.3 Total Protein 6.3 g/dL Low 6.4-8.9 Albumin 3.2 g/dL N 3.2-5.2 Globulin 3.1 g/dL N 2-4 Albumin/Globulin Ratio 1.0 N 1-3 Total Bilirubin 0.60 mg/dL N 0.2-1.0 Alkaline Phosphatase 102 U/L N 34-104 Alt 10 U/L N 7-52 Ast 12 U/L Low 13-39 Egfr Non- 69.6 >60 Egfr 84.2 >60 14 Venous Blood Gas 11/04/2018 [facility] Venous Blood pH 7.40 N 7.32-7.[address] [place] [address] [phone] Venous Pco2 44 mmHg N 41-51 Venous Po2 < 38.0 mmHg N 35-45 Venous O2 Saturation 65.6 % Low 70-80 Venous Blood Base Excess 2.0 mmol/L N 0.0-4.0 15 Venous Bicarbonate Hco3 25.6 mmol/L N 24-28 CBC Auto Diff 11/04/2018 [facility] White Blood 6.7 10^3/uL N 3.5-10.[address] [place] [address] [phone] Red Blood Count 4.45 10^6/uL N 4.00-5.40 Hemoglobin 11.7 g/dL Low 12.0-16.0 Hematocrit 36 % N 35-47 Mean Corpuscular Volume 81 fL N 80-97 Mean Corpuscular Hemoglobin 26 pg Low 27-31 Mean Corpuscular HGB Conc 32 g/dL N 31-36 Red Cell Distribution Width 16 % High 10.5-15 Platelet Count 282 10^3/uL N 150-450 Mean Platelet Volume 8.0 fL N 7.4-10.4 Abs Neutrophils 4.9 10^3/uL N 1.5-7.7 Abs Lymphocytes 1.3 10^3/uL N 1.0-4.8 Abs Monocytes 0.4 10^3/uL N 0-0.8 Abs Eosinophils 0.1 10^3/uL N 0-0.6 Abs Basophils 0 10^3/uL N 0-0.2 Abs Nucleated RBC 0 10^3/uL Granulocyte % 73.0 % Lymphocyte % 19.9 % Monocyte % 5.3 % Eosinophil % 1.6 % Basophil % 0.2 % Nucleated Red Blood Cells % 0 Laboratory test 11/04/2018 [facility] Lactic Acid 1.1 mmol/L N 0.5-2.0 [address] [place] [address] [phone] Drug Abuse 20 10/25/2018 [facility] Urine Negative [address] Amphetamine ng/[place] [address] [phone] Urine Barbiturates Negative ng/mL 18 Urine Benzodiazepines Negative ng/mL 19 Urine Cocaine Negative ng/mL 20 Urine Phencyclidine Negative ng/mL Cutoff: 25 Urine Tetrahydrocannabinol Negative ng/mL Cutoff: 50 21 Creatinine, Urine 30.5 mg/dL Specific [place] 1.007 pH 5.3 Oxidants Negative 22 Adulterants Comment Normal Codeine, Ur Not Detected ng/mL Cutoff: 25 23 Gfjuhhs-8-yhtu-glucuronide, Ur Not Detected ng/mL 24 Morphine, Ur Not Detected ng/mL Cutoff: 25 25 Ddsxxffb-1-uotu-glucuronide, U Not Detected ng/mL 26 6-monoacetylmorphine, Ur Not Detected ng/mL Cutoff: 25 27 Hydrocodone, Ur Not Detected ng/mL Cutoff: 25 28 Norhydrocodone, Ur Not Detected ng/mL Cutoff: 25 29 Dihydrocodeine, Ur Not Detected ng/mL Cutoff: 25 30 Hydromorphone, Ur Not Detected ng/mL Cutoff: 25 31 Lqtnkqfathmqd2lnmxbdryrkkscde Not Detected ng/mL 32 Oxycodone, Ur Not Detected ng/mL Cutoff: 25 33 Noroxycodone, Ur Not Detected ng/mL Cutoff: 25 34 Oxymorphone, Ur Not Detected ng/mL Cutoff: 25 35 Btubltgvjos-2-qskf-glucuronide Not Detected ng/mL 36 Noroxymorphone, Ur Not Detected ng/mL Cutoff: 25 37 Fentanyl, Ur Not Detected ng/mL Cutoff: 2 38 Norfentanyl, Ur Not Detected ng/mL Cutoff: 2 39 Meperidine, Ur Not Detected ng/mL Cutoff: 25 40 Normeperidine, Ur Not Detected ng/mL Cutoff: 25 41 Naloxone, Ur Not Detected ng/mL Cutoff: 25 42 Zuhojelu-0-vurr-glucuronide, U Not Detected ng/mL 43 Methadone, Ur Not Detected ng/mL Cutoff: 25 44 Eddp, Ur Not Detected ng/mL Cutoff: 25 45 Propoxyphene, Ur Not Detected ng/mL Cutoff: 25 46 Norpropoxyphene, Ur Not Detected ng/mL Cutoff: 25 47 Tramadol, Ur Not Detected ng/mL Cutoff: 25 48 O-desmethyltramadol, Ur Not Detected ng/mL Cutoff: 25 49 Tapentadol, Ur Not Detected ng/mL Cutoff: 25 50 N-desmethyltapentadol, Ur Not Detected ng/mL Cutoff: 50 51 Zwobimlzkr-ygjl-kpixdopcwbn, U Not Detected ng/mL 52 Buprenorphine, Ur Not Detected ng/mL Cutoff: 5 53 Norbuprenorphine, Ur Not Detected ng/mL Cutoff: 5 54 Norbuprenorphine glucuronide Not Detected ng/mL Cutoff: 20 55 Opioid Interpretation See Comment 56 Wound 10/13/2018 [facility] Wound/Misc SEE RESULT 57 Culture/Sensi [address] [place] [address] Stain [phone] Laboratory test 09/04/2018 [facility] Point of Care 63 mg/dL Low 70-1 [address] Glucose 00 [place], [place] [id number] [phone] Urine Culture And 09/04/2018 [facility] Urine Culture SEE RESULT [address] [place] [address] [phone] Laboratory test 09/04/2018 [facility] Blood Culture SEE RESULT [address] BELOW [place], [place] [id number] [phone] Urinalysis Profile 09/04/2018 [facility] Urine Color Yellow [address] [place] [address] [phone] Urine Appearance Cloudy Urine Specific [place] 1.021 N 1.010-1.030 Urine pH 5.0 N 5-9 Urine Urobilinogen Negative Negative Urine Ketones Negative Negative Urine Protein 2+(100 mg/dL) Abnormal Negative Urine Leukocytes Negative Negative Urine Blood Negative Negative * * Abnormal Negative 61 Urine Nitrite Negative Negative Urine Bilirubin Negative Negative Urine Glucose 3+(>=500 mg/dL) Abnormal Negative Urine White Blood Cell 1+(6-10/hpf) Abnormal Absent Urine Red Blood Cell Trace(0-2/hpf) Absent Urine Bacteria 1+ Abnormal Absent Urine Squamous Epithelial Cell Present Abnormal Absent Laboratory test 09/04/2018 [facility] Erythrocyte Sed 34 mm/Hr High 0-[address] [place] [address] [phone] Procalcitonin < 0.1 ng/mL <0.6 62 Rapid Influenza A B Antigen SEE RESULT BELOW 63 Laboratory test 09/04/2018 [facility] Point of Care 214 mg/dL High 70-100 [address] [place] [address] [phone] Laboratory test 09/04/2018 [facility] Point of Care 226 mg/dL High 70-100 [address] Glucose [place], [place] [address] [phone] Laboratory test 09/04/2018 [facility] Point of Care 84 mg/dL N 70-[address] [place] [address] [phone] Laboratory test 09/04/2018 [facility] Point of Care 87 mg/dL N 70-100 [address] [place] [address] [phone] Laboratory test 09/04/2018 [facility] B-Type 62 pg/mL <=[address] [place] [address] Peptide BNP [phone] CBC Auto Diff 09/04/2018 [facility] White Blood 9.5 N 3.5- 10.[address] Count 10^3/[place] [address] [phone] Red Blood Count 4.72 10^6/uL N 4.00-5.40 Hemoglobin 12.5 g/dL N 12.0-16.0 Hematocrit 38 % N 35-47 Mean Corpuscular Volume 80 fL N 80-97 Mean Corpuscular Hemoglobin 27 pg N 27-31 Mean Corpuscular HGB Conc 33 g/dL N 31-36 Red Cell Distribution Width 16 % High 10.5-15 Platelet Count 264 10^3/uL N 150-450 Mean Platelet Volume 7.8 fL N 7.4-10.4 Abs Neutrophils 7.7 10^3/uL N 1.5-7.7 Abs Lymphocytes 1.1 10^3/uL N 1.0-4.8 Abs Monocytes 0.6 10^3/uL N 0-0.8 Abs Eosinophils 0.1 10^3/uL N 0-0.6 Abs Basophils 0 10^3/uL N 0-0.2 Abs Nucleated RBC 0 10^3/uL Granulocyte % 80.8 % Lymphocyte % 11.5 % Monocyte % 6.4 % Eosinophil % 1.0 % Basophil % 0.3 % Nucleated Red Blood Cells % 0.1 Laboratory test 09/04/2018 [facility] Partial 25.2 seconds Low 26.0-36.[address] [place] [address] PTT [phone] Fibrinogen 383.2 mg/dL N 110.8-404.3 Inr/Protime 09/04/2018 [facility] Inr 0.80 N 0.77-1.[address] [place] [address] [phone] Laboratory test 09/04/2018 [facility] Creatine 64 U/L N 10- [address] Kinase(CK) [place] [address] [phone] C Reactive Protein 3.76 mg/L N <8.01 Troponin-I (TnI) 0.00 ng/mL <0.04 68 Lactic Acid 3.1 mmol/L High 0.5-2.0 69 Comp Metabolic Panel 09/04/2018 [facility] Sodium 137 mmol/L N 135-[address] [place] [address] [phone] Potassium 3.2 mmol/L Low 3.5-5.0 Chloride 101 mmol/L N 101-111 Co2 Carbon Dioxide 27 mmol/L N 22-32 Anion Gap 9 mmol/L N 2-11 Glucose 154 mg/dL High 70-100 Blood Urea Nitrogen 16 mg/dL N 6-24 Creatinine 1.09 mg/dL High 0.51-0.95 BUN/Creatinine Ratio 14.7 N 8-20 Calcium 9.5 mg/dL N 8.6-10.3 Total Protein 6.7 g/dL N 6.4-8.9 Albumin 3.5 g/dL N 3.2-5.2 Globulin 3.2 g/dL N 2-4 Albumin/Globulin Ratio 1.1 N 1-3 Total Bilirubin 0.80 mg/dL N 0.2-1.0 Alkaline Phosphatase 90 U/L N 34-104 Alt 11 U/L N 7-52 Ast 15 U/L N 13-39 Egfr Non- 52.9 >60 Egfr 64.0 >60 70 Laboratory test 07/18/2018 [facility] C-Peptide 2.2 ng/mL 1.1 - 4.4 71 finding [address] [place] [address] [phone] Insulin Level 28.9 mcIU/mL High 2.0-16.0 Glucose 476 mg/dL High 70-100 Laboratory test finding 07/11/2018 [employer] In House Hemoglobin A1c 13.4 High 5-7 Glucose Random 478 Ketones 0.3 Laboratory test 06/09/2018 [employer] In House Glucose Random 170 finding Laboratory test 05/26/2018 [facility] Point of Care > 444 mg/dL High 70-100 72 finding [address] [facility] [place] [address] [phone] Urinalysis Profile 05/26/2018 [facility] Urine Color Yellow [address] [place] [address] [phone] Urine Appearance Cloudy Urine Specific [place] 1.025 N 1.010-1.030 Urine pH 7.0 N [...] Present Abnormal Absent Urine Culture And 05/26/2018 [facility] Urine Culture SEE RESULT [address] [place] [address] [phone] CBC Auto Diff 05/26/2018 [facility] White Blood 5.8 10^3/uL N 3.5-[address] Count 0.8 [place] [address] [phone] Red Blood Count 4.41 10^6/uL N 4.00-5.40 [...] Cells % 0.3 Comp Metabolic Panel 05/26/2018 [facility] Sodium 133 mmol/L Low 135-[address] [place] [address] [phone] Potassium 4.2 mmol/L N 3.5-5.0 Chloride 95 [...] Egfr Non- 61.5 >60 Egfr 74.4 >60 74 Glucose 667 mg/dL High 70-100 75 Laboratory 05/26/2018 [facility] C Reactive 8.76 mg/L High < 8.01 test finding 101 [facility] Protein [place], [place] [address] [phone] Wound 05/24/2018 [facility] Wound/Misc SEE 76 Culture/Sensi [address] [facility] [place] [address] Stain BELOW [phone] Laboratory 05/24/2018 [employer] In House Hemoglobin A1c >14 High 5-7 test finding Laboratory 05/16/2018 [facility] Vitamin B12 538 pg/mL N 180- 914 77 test finding [address] [place], [place] [address] [phone] Lipid Profile 05/16/2018 [facility] Triglycerides 172 mg/dL 78 (Trig/Chol/HDL [address] [facility] ) [place], [place] [address] [phone] Cholesterol 194 mg/dL 79 HDL Cholesterol 57.3 mg/dL 80 LDL Cholesterol 102 mg/dL 81 Comp Metabolic Panel 05/16/2018 [facility] Sodium 139 mmol/L N 135-145 [address] [place], [place] [address] [phone] Potassium 3.5 mmol/L N 3.5-5.0 Chloride 101 [...] Egfr Non- 37.6 >60 Egfr 45.5 >60 82 Urine Microalbumin 05/16/2018 [facility] Urine Creatinine 511.74 mg/dL Random [address] [place] [address] [phone] Ur Microalbumin (mg/L) 1196.9 Urine Microalbumin/Creatinine 233.8 High <31 CBC Auto Diff 05/16/2018 [facility] White Blood 7.7 10^3/uL N 3.5-10.[address] [place] [address] [phone] Red Blood Count 4.26 10^6/uL N 4.00-5.40 [...] Blood Cells % 0.1 Ua Routine 07/23/2017 [facility] [employer] [facility] In House Ua Specific [place] 1.025 Ua PH 5 Ua Color dark yellow Ua Appera cloudy Ua WBC positive Ua Protein 500 Ua Glucose 1000 Ua Ketones negative Ua Bilirubin small Ua Urobilinogen normal Ua Nitrite negative Ua Occult Blood 250 Urine Culture And 07/23/2017 [facility] Urine Culture SEE RESULT [address] [place] [address] [phone] Laboratory test 06/18/2017 [employer] [employer] [facility] In House Hemoglobin A1c 12.6 High 5-7 finding Laboratory test 12/18/2016 [employer] [employer] In House Hemoglobin A1c 14.0 High 5-7 finding Comp Metabolic 11/30/2016 [facility] Sodium 131 mmol/L Low 133 - Panel [address] [place] [address] [phone] Potassium 4.3 mmol/L N 3.5-5.0 Chloride 96 [...] 67.4 N >60 Egfr 86.7 N >60 84 Glucose 557 mg/dL High 70-100 Laboratory test 11/30/2016 [facility] C Reactive 2.40 mg/L N < 5.00 [address] [place] [address] [phone] 1 Because ethnic data is not always readily [...] 15-29 5 Kidney failure <15 (or dialysis) 2 Critical Result GLU:31 Called to STEPHEN Hodge at: 12:32:18 by:[id number] Read back by:STEPHEN Hodge 3 Desirable: <150 Borderline High: 150-199 High: 200-499 Very High: >500 4 Desirable: <200 Borderline High: 200-239 High: >239 5 Low: <40 Desirable: 40-60 High: >60 6 Desirable: <100 Near Optimal: 100-129 Borderline High: 130-159 High: 160-189 Very High: >189 7 The urine specimen was tested at the listed cutoffs: Drug class test level (ng/mL) Amphetamines 500 Barbiturates 200 Benzodiazepine metabolites 200 Cocaine metabolites 150 Cannabinoids 50 Opiates 300 Pcp 25 Specimen was received without chain of custody. Results should be used for medical purposes only. 8 Biochemical Development Engineer: [id number] 9 SEE RESULT BELOW Name: LESLY GILES : [address]: Ara Alvarez DO Acct: [id number] Unit: [id number] AGE: 53 Location: [place] [address] Re11/05/18 SEX: F Status: ADM IN SPEC: [id number] ASHLEY: 11/04/[address]: Soraya MERCEDES REQ: [id number] RECD: 11/04/18 STATUS: CORAZON PIZANO DR: Zoya Patten MD _ SOURCE: URINE [facility]: ORDERED: Urine Culture Procedure Result Reported Site Urine Culture Final 11/06/18- 0939 ML Organism 1 ESCHERICHIA COLI [place] Count >100,000 (Many) CFU/ML 1. ESCHERICHIA COLI M.I.C. RX --------- ------ Ampicillin >=32 R Cefazolin <=4 S Cefepime <=1 S Ceftriaxone <=1 S Ciprofloxacin <=0.25 S Gentamicin <=1 S Levofloxacin <=0.12 S Meropenem <=0.25 S Nitrofurantoin 32 S Tetracycline <=1 S Pipercillin/Tazobactam <=4 S Trimethoprim/Sulfamethoxazole <=20 S Amoxicillin/Clavulanic Acid 8 S Aztreonam <=1 S Contact the Microbiology Department for any additional antibiotic reporting. * ML - Main Lab . END OF REPORT DEPARTMENT OF PATHOLOGY, [address] [place] [address] Renaldo Santos M.D. Director [facility] # [id number] 10 Troponin-I testing on Plasma Separator Tubes (PST) has a known false positive rate of 0.20-0.40%. All positive troponins reflex immediate secondary confirmatory testing. 11 Biochemical Development Engineer: [id number] Biochemical Development Engineer: [id number] 13 SEE RESULT BELOW Name: LESLY GILES Jose : [address]: Rohan Nathan MD Acct: [id number] Unit: [id number] AGE: 53 Location: ED Re11/04/18 SEX: F Status: PRE ER SPEC: [id number] ASHLEY: 11/04/18-[address]: Soraya MERCEDES REQ: [id number] RECD: 11/04/18 STATUS: CORAZON PIZANO DR: Zoya Nathan MD _ SOURCE: NASAL SPDESC: ORDERED: Flu A B Request Procedure Result Reported Site Rapid Influenza A B Request Final 11/04/181942 ML Specimen received for Influenza A/B Molecular testing * ML - Main Lab . END OF REPORT DEPARTMENT OF PATHOLOGY, [address] [place] [address] Renaldo Santos M.D. Director [facility] # [id number] 14 Because ethnic data is not always [...] 5 Kidney failure <15 (or dialysis) 15 Reference ranges based on room air. 16 [facility] Severe Sepsis and Septic Shock Management Bundle Measure requires all lactic acids initially measuring >2.0 mmol/L be repeated. 17 REFERENCE VALUE Cutoff: 500 18 REFERENCE VALUE Cutoff: 200 19 REFERENCE VALUE Cutoff: 100 20 REFERENCE VALUE Cutoff: 150 21 ADDITIONAL INFORMATION This report is intended for use in clinical monitoring or management of patients. It is not intended for use in employment-related testing. 22 REFERENCE VALUE Cutoff: 200 mg/L 23 Tylenol 3 24 Metabolite of codeine REFERENCE VALUE Cutoff: 100 25 Avinza, Laura, MS Contin; Also a minor metabolite (10%) of codeine and can be seen in low concentrations (<2,000 ng/mL) with poppy seed ingestion. 26 Metabolite of morphine REFERENCE VALUE Cutoff: 100 27 Metabolite of heroin 28 Lortab, Accokeek, Vicodin; Also a very minor metabolite of codeine and impurity (<1%) of oxycodone. 29 Metabolite of hydrocodone 30 Metabolite of hydrocodone 31 Dilaudid, Exalgo; Also a metabolite of hydrocodone and a minor (<5%) metabolite of morphine. 32 Metabolite of hydromorphone REFERENCE VALUE Cutoff: 100 33 Endocet, Percocet, Oxycontin 34 Metabolite of oxycodone 35 Numorphan, Opana; Also a metabolite of oxycodone. 36 Metabolite of oxymorphone REFERENCE VALUE Cutoff: 100 37 Metabolite of oxymorphone 38 Actiq, Duragesic, Fentora 39 Metabolite of fentanyl 40 Demerol 41 Metabolite of meperidine 42 Narcan 43 Metabolite of naloxone REFERENCE VALUE Cutoff: 100 44 Dolophine 45 Metabolite of methadone 46 Darvon, Darvocet 47 Metabolite of propoxyphene 48 Tradol, Ultram, Ultracet 49 Metabolite of tramadol 50 Nucynta 51 Metabolite of tapentadol 52 Metabolite of tapentadol REFERENCE VALUE Cutoff: 100 53 Buprenex, Suboxone 54 Metabolite of buprenorphine 55 Metabolite of buprenorphine 56 No opioids were detected. The absence of expected drug(s) and/or drug metabolite(s) may indicate non-compliance, altered pharmacokinetics, inappropriate timing of specimen collection relative to drug administration, diluted/adulterated urine, or limitations of testing. ADDITIONAL INFORMATION This test was developed and its performance characteristics determined by [facility] in a manner consistent with CLIA requirements. This test has not been cleared or approved by the U.S. Food and Drug Administration. Test Performed by: [facility] [address] [place] [address] 57 SEE RESULT BELOW Name: LESLY GILES Jose : [address]: Mat Mckeon MD Acct: [id number] Unit: [id number] AGE: 53 Location: WOUND Re10/13/18 SEX: F Status: REG REF SPEC: [id number] ASHLEY: 10/13/18-[address]: Mat Mckeon MD REQ: [id number] RECD: 10/13/184925 STATUS: CORAZON PIZANO DR: Gustavo Maldonado ELECTRIC TRUCKER _ SOURCE: TOE SPDESC: ORDERED: Culture Stain Procedure Result Reported Site Wound/Misc Gram Stain Final 10/13/18- 1727 ML 3+ Neutrophils 1+ Epithelial Cells 3+ Gram Positive Cocci in Chains, resembling Strep Wound/Misc Culture Final 10/15/18- 1009 ML Organism 1 STREP AGALACTIAE - (GROUP B) Quantity 3+ Organism 2 NORMAL EB Quantity 1+ 1. STREP AGALACTIAE - (GROUP B) M.I.C. RX --------- ------ Ampicillin <=0.25 S Penicillin <=0.12 S Clindamycin >=8 R Levofloxacin 1 S Linezolid 2 S * Moxifloxacin <=0.25 S * Quinupristin/Dalfopristin <=0.25 S Tetracycline >=16 R Tigecycline <=0.12 S Vancomycin <=0.5 S Imipenem-Deduced S * Ampicillin/Sulbactam-Deduced S Cefazolin-Deduced S CONTINUED ON NEXT PAGE DEPARTMENT OF PATHOLOGY, [address] [place] [address] Renaldo Santos M.D. Director [facility] # [id number] Patient: LESLY GILES [id number] (Continued) Specimen: [id number] Collected: 10/13/18 Received: 10/13/18 (Continued) Procedure Result Reported Site Wound/Misc Culture Final (continued) * These antibiotics are not available in the [facility] Formulary Contact the Microbiology Department for any additional antibiotic reporting. * ML - Main Lab . END OF REPORT DEPARTMENT OF PATHOLOGY, [address] [place] [address] Renaldo Santos M.D. Director [facility] # [id number] 58 Biochemical Development Engineer: [id number] 59 SEE RESULT BELOW Name: CHRISTINE GILESNIKOS Garcia : [address]: Khai Lam MD Acct: [id number] Unit: [id number] AGE: 53 Location: [place] [address] Re09/04/18 SEX: F Status: ADM IN SPEC: [id number] ASHLEY: 09/05/18 [facility] DR: Hailey Head MD REQ: [id number] RECD: 09/05/18 STATUS: CORAZON PIZANO DR: Gustavo Maldonado ELECTRIC TRUCKER _ SOURCE: URINE SPDESC: ORDERED: Urine Culture Procedure Result Reported Site Urine Culture Final 09/06/18- 1010 ML Organism 1 STREP GROUP B [place] Count >100,000 (Many) CFU/ML Susceptibility testing of penicillins and other B-lactams approved by FDA for treatment of Streptococcus pyogenes (Group A Strep) and Streptococcus agalactiae (Group B Strep) is not necessary for clinical purposes and need not be done routinely, since as with vancomycin, resistant strains have not been recognized. (CLSI Q023-M66;p.66) Positive isolates will be saved for one week. Please call the Microbiology Laboratory if further susceptibility testing is needed. * ML - Main Lab . END OF REPORT DEPARTMENT OF PATHOLOGY, [address] [place] [address] Renaldo Santos M.D. Director [facility] # [id number] 60 SEE RESULT BELOW Name: LESLY GILES : [address]: Emily Restrepo MD Acct: [id number] Unit: [id number] AGE: 53 Location: [place] [id number] Re09/04/18 Dis: 09/06/18 SEX: F Status: DIS IN SPEC: [id number] ASHLEY: 09/04/18 [facility] DR: Hailey Head MD REQ: [id number] RECD: 09/04/18 STATUS: CORAZON PIZANO DR: Gustavo Maldonado ELECTRIC TRUCKER _ SOURCE: BLOOD,VENO SPDESC: ORDERED: Blood Cult Procedure Result Reported Site Aerobic Culture Bottle Final 09/09/18- 1752 ML No Growth Day 5 Anaerobic Culture Bottle Final 09/09/18- 1750 ML No Growth Day 5 * [facility] - [facility] . END OF REPORT DEPARTMENT OF PATHOLOGY, [address] [place] [address] Renaldo Santos M.D. Director [facility] # [id number] 61 *Ascorbic acid is present which may interfere with detection of blood. 62 Interpretive information available on [employer] Lab Test Catalog at [email or web address] 63 SEE RESULT BELOW Name: LESLY GILES : [address]: Khai Lam MD Acct: [id number] Unit: [id number] AGE: 53 Location: ICU [id number] Re09/04/18 SEX: F Status: ADM IN SPEC: [id number] ASHLEY: 09/04/[address]: Hailey Head MD REQ: [id number] RECD: 09/04/18 STATUS: CORAZON PIZANO DR: Gustavo Maldonado ELECTRIC TRUCKER _ SOURCE: NASAL SPDESC: ORDERED: Flu A B Request Procedure Result Reported Site Rapid Influenza A B Request Final 09/04/18- 2108 ML Specimen received for Influenza A/B Molecular testing * ML - Main Lab . END OF REPORT DEPARTMENT OF PATHOLOGY, [address] [place] [address] Renaldo Santos M.D. Director [facility] # [id number] 64 Biochemical Development Engineer: [id number] Biochemical Development Engineer: [id number] 66 Biochemical Development Engineer: [id number] 67 Biochemical Development Engineer: [id number] 68 Troponin-I testing on Plasma Separator Tubes (PST) has a known false positive rate of 0.20-0.40%. All positive troponins reflex immediate secondary confirmatory testing. 69 Critical Result LACT:3.1 Called to [id number] at: 18:13:46 by:[id number] Read back by:[id number] [facility] Severe Sepsis and Septic Shock Management Bundle Measure requires all lactic acids initially measuring >2.0 mmol/L be repeated. 70 Because ethnic data is not always readily [...] 15-29 5 Kidney failure <15 (or dialysis) 71 Test Performed by: [facility] [address] [address] [place] [address] 72 Biochemical Development Engineer: [id number] 73 SEE RESULT BELOW Name: LESLY GILES Jose : [address]: Wilber Galarza DO Acct: [id number] Unit: [id number] AGE: 52 Location: ICU [id number] Re05/27/18 SEX: F Status: ADM IN SPEC: [id number] ASHLEY: 05/26/[address]: Oziel Frank MD REQ: [id number] RECD: 05/26/18 STATUS: CORAZON PIZANO DR: Gustavo Maldonado ELECTRIC TRUCKER _ SOURCE: URINE SPDESC: ORDERED: Urine Culture Procedure Result Reported Site Urine Culture Final 05/28/18- 827 ML Organism 1 ESCHERICHIA COLI [place] Count >100,000 (Many) CFU/ML 1. ESCHERICHIA COLI [...] . END OF REPORT DEPARTMENT OF PATHOLOGY, [address] [place] [address] Renaldo Santos M.D. Director [facility] # [id number] 74 Because ethnic data is not always readily [...] 15-29 5 Kidney failure <15 (or dialysis) 75 Critical Result GLU:667 Called to [id number] at: 11:07:06 by:[id number] Read back by:[id number] 76 SEE RESULT BELOW Name: LESLY GILES Jose : [address]: Gustavo Maldonado NP Acct: [id number] Unit: [id number] AGE: 52 Location: [facility] Re05/24/18 SEX: F Status: REG REF SPEC: [id number] ASHLEY: 05/24/18-[address]: Gustavo Maldonado NP REQ: [id number] RECD: 05/24/18 STATUS: COMP _ SOURCE: TAL SPDESC: ORDERED: Culture Stain COMMENTS: [id number] Specimen Description Left great toe Procedure Result [...] CONTINUED ON NEXT PAGE DEPARTMENT OF PATHOLOGY, [address] [place] [address] Renaldo Santos M.D. Director [facility] # [id number] Patient: LESLY GILES [id number] (Continued) Specimen: [id number] Collected: 05/24/18 Received: 05/24/18 (Continued) Procedure Result Reported Site Wound/Misc Culture Final (continued) 05/26/18- 1008 1. STAPHYLOCOCCUS AUREUS (continued) M.I.C. RX --------- ------ Vancomycin <=0.5 S Imipenem-Deduced S * Ampicillin/Sulbactam-Deduced S Cefazolin-Deduced S * These antibiotics are not available in the [facility] Formulary Contact the Microbiology Department for any additional antibiotic reporting. * - [facility] . END OF REPORT DEPARTMENT OF PATHOLOGY, [address] [place] [address] Renaldo Santos M.D. Director [facility] # [id number] 77 Normal Range 180 to 914 Indeterminate Range 145 to 180 Deficient Range <145 78 Desirable: <150 Borderline High: 150-199 High: 200-499 Very High: >500 79 Desirable: <200 Borderline High: 200-239 High: >239 80 Low: <40 Desirable: 40-60 High: >60 81 Desirable: <100 Near Optimal: 100-129 Borderline High: 130-159 High: 160-189 Very High: >189 82 Because ethnic data is not always readily [...] 15-29 5 Kidney failure <15 (or dialysis) 83 SEE RESULT BELOW Name: LESLY GILES DOB: [address]: Gustavo Maldonado NP Acct: [id number] Unit: [id number] AGE: 52 Location: [facility] Re07/23/17 SEX: F Status: REG REF SPEC: [id number] ASHLEY: 07/23/17-[address]: Gustavo Maldonado NP REQ: [id number] RECD: 07/23/17 STATUS: COMP _ SOURCE: URINE SPDESC: ORDERED: Urine Culture COMMENTS: [id number] Urine Source: Random Procedure Result Reported Site Urine Culture Final 07/25/17- 0842 ML Organism 1 ESCHERICHIA COLI [place] Count >100,000 (Many) CFU/ML 1. ESCHERICHIA COLI [...] antibiotic reporting. * ML - MAIN LAB ([facility]) . END OF REPORT * ML=Testing performed at Main Lab DEPARTMENT OF PATHOLOGY, [address] [place] [address] Renaldo Santos M.D. Director [facility] # [id number] 84 Because ethnic data is not always readily [...] 15-29 5 Kidney failure <15 (or dialysis) 85 Acute inflammation: >10.00 Procedures Date Code Description Status 05/27/2018 11744 EEG Recording Awake & Asleep Completed 05/27/2018 65940 ECHO Transthorasic Realtime 2D W Doppler & Color Flow Completed Hosp 05/27/2018 96111 EKG, Interpretation Only Completed 05/27/2018 39798 Insert Non-Tunneled Venous Catether Completed 05/27/2018 59779 Endo-Trachial Tube Completed 05/16/2018 01500 Diffusing Capacity Completed 05/16/2018 38550 Plethysmography Determination Lung Volumes & Per Completed Airway Resist 05/16/2018 65436 Pulmonary Function><Bronchodil Completed 11/02/2017 [id number] Diabetic Retinal Eye Exam Completed 06/18/2017 [id number] Diabetic Retinal Eye Exam Completed 10/27/2016 38989 Removal Devitalization Tissue Wound Less Than Equal 20 Completed Square CM 10/12/2016 51538 EKG, Interpretation Only Completed 10/12/2016 25832 Repair Hernia Inguinal > 5Yrs, Incarcerated Or Completed Strangulated 10/12/2016 92765 Repair Hernia Inguinal > 5Yrs, Incarcerated Or Completed Strangulated Encounters Type Date Location Provider Dx Diagnosis Office Visit 11/24/2018 Outboard Motor Inspector Internal Gustavo AYESHA Maldonado J44.9 Chronic obstructive 10:20a Medicine - pulmonary disease, [place] unspecified L97.529 Non-pressure chronic ulcer oth prt left foot w unsp severity E78.5 Hyperlipidemia, unspecified I95.1 Orthostatic hypotension Office Visit 11/08/2018 10:49a [facility] Piotr Brunner, N39.0 Urinary tract Assoc,kika MARIE infection, site Hospitalists not specified B96.20 Unsp Escherichia coli as the cause of diseases classd elswhr E11.621 Type 2 diabetes mellitus with foot ulcer L97.529 Non-pressure chronic ulcer oth prt left foot w unsp severity Office 11/07/2018 Neurohospitalist Mat Rice E11.42 Type 2 diabetes Visit 7:00a Sommer Rodriguez M.D. mellitus with diabetic polyneuropathy E11.43 Type 2 diabetes w diabetic autonomic (poly)neuropathy Office Visit 11/07/2018 10:49a [facility] Piotr Brunner, E11.65 Type 2 diabetes Assoc,kika MARIE mellitus with Hospitalists hyperglycemia B96.20 Unsp Escherichia coli as the cause of diseases classd elswhr N39.0 Urinary tract infection, site not specified E11.621 Type 2 diabetes mellitus with foot ulcer L97.529 Non-pressure chronic ulcer oth prt left foot w unsp severity Office 11/06/2018 Neurohospitalist Nneka E11.42 Type 2 diabetes Visit 7:00a Clinic Tom Chen mellitus with diabetic polyneuropathy R33.9 Retention of urine, unspecified R15.9 Full incontinence of feces R03.1 Nonspecific low blood-pressure reading H02.403 Unspecified ptosis of bilateral eyelids Office Visit 11/06/2018 10:48a [facility] Ara R33.9 Retention of Assoc,kika Mai, DO urine, Hospitalists unspecified R53.1 Weakness E11.65 Type 2 diabetes mellitus with hyperglycemia E11.621 Type 2 diabetes mellitus with foot ulcer L97.529 Non-pressure chronic ulcer oth prt left foot w unsp severity E11.42 Type 2 diabetes mellitus with diabetic polyneuropathy Office Visit 11/06/2018 [facility] [address], E11.65 Type 2 diabetes 11:16a Endocrinology of MD mellitus with Outboard Motor Inspector hyperglycemia Z79.4 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 (current) use of insulin Office 11/05/2018 Neurohospitalist Nneka M62.81 Muscle weakness Visit 7:00a Clinic Tom Chen (generalized) R20.0 Anesthesia of skin R33.9 Retention of urine, unspecified R15.9 Full incontinence of feces E11.42 Type 2 diabetes mellitus with diabetic polyneuropathy R03.1 Nonspecific low blood-pressure reading H02.403 Unspecified ptosis of bilateral eyelids Office Visit 11/05/2018 10:48a [facility] Emily R33.9 Retention of Asslucrecia,kika Kennedy M.D. urine, Hospitalists unspecified R53.1 Weakness E11.69 Type 2 diabetes mellitus with other specified complication E11.621 Type 2 diabetes mellitus with foot ulcer L97.529 Non-pressure chronic ulcer oth prt left foot w unsp severity [facility] 2 [facility] 10:47a Assoc,kika Becker NP mellitus with Hospitalists hyperglycemia R53.1 Weakness Office Visit 10/25/2018 11:40a [facility] Internal Gustavo Maldonado J44.9 Chronic Medicine - ELECTRIC TRUCKER obstructive [place] pulmonary disease, unspecified J01.90 Acute sinusitis, unspecified E11.42 Type 2 diabetes mellitus with diabetic polyneuropathy Office Visit 10/13/2018 12:45p Wound Care Mat Potter E11.621 Type 2 diabetes Center AT [facility] Tom Mckeon mellitus with foot ulcer E11.42 Type 2 diabetes mellitus with diabetic polyneuropathy M86.672 Other chronic osteomyelitis, left ankle and foot Office Visit 09/27/2018 [facility] [address], E11.65 Type 2 diabetes 4:00p Endocrinology of mellitus with Outboard Motor Inspector hyperglycemia E11.649 Type 2 diabetes mellitus with hypoglycemia without coma Z79.4 [facility] (current) use of insulin Office Visit 09/07/2018 Orthopedic Pablo Clara, L97.529 Non-pressure 2:30p Services Of chronic ulcer oth C.M.A. prt left foot w unsp severity Z79.4 [facility] (current) use of insulin E11.621 Type 2 diabetes mellitus with foot ulcer E11.42 Type 2 diabetes mellitus with diabetic polyneuropathy M20.22 Hallux rigidus, left foot [facility] E11.649 Type 2 diabetes 9:57a Assoc,pc N.P. mellitus with Hospitalists hypoglycemia without coma G93.41 Metabolic encephalopathy E11.621 Type 2 diabetes mellitus with foot ulcer L97.529 Non-pressure chronic ulcer oth prt left foot w unsp severity Office Visit 09/06/2018 [facility] Zavala Coch, E11.649 Type 2 diabetes 10:32a Endocrinology of mellitus with Outboard Motor Inspector hypoglycemia without coma Z79.4 [facility] (current) use of insulin E11.621 Type 2 diabetes mellitus with foot ulcer L97.529 Non-pressure chronic ulcer oth prt left foot w unsp severity Office Visit 09/05/2018 2:14p [facility] Yohan Iqbal E10.40 Type 1 diabetes For Infectious Tom Ruggiero mellitus with Diseases diabetic neuropathy, unsp E10.621 Type 1 diabetes mellitus with foot ulcer L97.529 Non-pressure chronic ulcer oth prt left foot w unsp severity T84.89xA Oth comp of internal orthopedic prosth dev/grft, init Office Visit 09/05/2018 [facility] Svetlana Bishop, E11.649 Type 2 diabetes 9:57a Assoc,pc N.P. 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 w unsp severity E11.621 Type 2 diabetes mellitus with foot ulcer E86.0 Dehydration E87.2 Acidosis E87.6 Hypokalemia Office Visit 09/01/2018 1:40p [facility] [address], Z79.4 [facility] Endocrinology of [facility] (current) use of insulin E11.65 Type 2 diabetes mellitus with hyperglycemia B37.3 Candidiasis of vulva and vagina E78.5 Hyperlipidemia, unspecified R35.8 Other polyuria Office Visit 08/15/2018 10:40a [facility] Internal Gustavo Maldonado, J44.9 Chronic Medicine - ELECTRIC TRUCKER obstructive [place] pulmonary disease, unspecified S91.102S Unsp opn wnd left great toe w/o damage to nail, sequela B37.3 Candidiasis of vulva and vagina Office Visit 07/11/2018 [facility] [address], E11.65 Type 2 diabetes 10:40a Endocrinology of MD mellitus with [facility] hyperglycemia B37.3 Candidiasis of vulva and vagina Office Visit 06/09/2018 [facility] [address], E11.65 Type 2 diabetes 2:00p Endocrinology of MD mellitus with [facility] hyperglycemia E78.5 Hyperlipidemia, unspecified Office Visit 06/07/2018 10:40a [facility] Internal Gustavolauren Maldonado, S91.102S Unsp opn wnd Medicine - ELECTRIC TRUCKER left great toe [place] w/o damage to nail, sequela J44.9 Chronic obstructive pulmonary disease, unspecified E11.42 Type 2 diabetes mellitus with diabetic polyneuropathy I10 Essential (primary) hypertension E78.5 Hyperlipidemia, unspecified Office Visit 05/31/2018 9:24a [facility] Teresa qIbal E11.621 Type 2 Infectious Tom Ruggiero diabetes Diseases mellitus with foot ulcer L97.521 Non-prs chronic ulcer oth prt l foot limited to brkdwn skin L03.115 Cellulitis of right lower limb E11.65 Type 2 diabetes mellitus with hyperglycemia Office Visit 05/31/2018 [facility] E11.65 Type 2 diabetes 11:03a Asskika singer M.D. mellitus with Hospitalists hyperglycemia E11.621 Type 2 diabetes mellitus with foot ulcer L97.529 Non-pressure chronic ulcer oth prt left foot w unsp severity E11.641 Type 2 diabetes mellitus with hypoglycemia with coma N39.0 Urinary tract infection, site not specified B96.20 Unsp Escherichia coli as the cause of diseases classd elswhr Office Visit 05/30/2018 [facility] E[facility].621 Type 2 kika Shaffer M.D. diabetes Hospitalists mellitus with foot ulcer L97.529 Non-pressure chronic ulcer oth prt left foot w unsp severity N39.0 Urinary tract infection, site not specified B96.20 Unsp Escherichia coli as the cause of diseases classd elswhr Office Visit 05/29/2018 11:02a [facility], Z79.4 [facility] kika Shaffer M.D. (current) use Hospitalists of insulin E11.641 [...] coli as the cause of diseases classd elsr N39.0 Urinary tract infection, site not specified Office 05/27/2018 Neurohospitalist Yoly Chanel MD G93.40 Encephalopathy, Visit 7:00a Clinic unspecified [facility] Unspecified coma Visit 11:01a Assoc,pc Kelley [place], Hospitalists Tom J96.00 Acute respiratory failure, unsp w hypoxia or hypercapnia R00.1 Bradycardia, unspecified I95.9 Hypotension, unspecified R29.2 Abnormal reflex Office Visit 05/27/2018 11:02a Intensivists Wilber Galarza, J96.00 Acute respiratory DO failure, unsp w hypoxia or hypercapnia E11.641 Type 2 diabetes mellitus with hypoglycemia with coma N17.9 Acute kidney failure, unspecified I95.9 Hypotension, unspecified R00.1 Bradycardia, unspecified Office Visit 05/26/2018 [facility] Kandis Jose Alberto, E11.65 Type 2 diabetes 11:01a Assoc,pc ELECTRIC TRUCKER mellitus with Hospitalists hyperglycemia L97.429 Non-prs chronic ulcer of left heel and midfoot w unsp severt E11.621 Type 2 diabetes mellitus with foot ulcer N39.0 Urinary tract infection, site not specified I10 Essential (primary) hypertension Office Visit 05/24/2018 11:40a [facility] Internal Gustavolauren Maldonado, Z79.84 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 ( current) Medicine - ELECTRIC TRUCKER use of oral [place] hypoglycemic drugs E11.42 Type 2 diabetes mellitus with diabetic polyneuropathy L03.116 Cellulitis of left lower limb S91.102S Unsp opn wnd left great toe w/o damage to nail, sequela Office Visit 04/21/2018 10:20a [facility] Internal Gustavolauren Maldonado, E11.42 Type 2 diabetes Medicine - ELECTRIC TRUCKER mellitus with [place] diabetic polyneuropathy I10 Essential (primary) hypertension R09.02 Hypoxemia B85.2 Pediculosis, unspecified Office Visit 01/17/2018 2:00p [facility] Internal Gustavolauren Maldonado, E11.42 Type 2 diabetes Medicine - ELECTRIC TRUCKER mellitus with [place] diabetic polyneuropathy F33.0 Major depressive disorder, recurrent, mild I10 Essential (primary) hypertension Office Visit 12/15/2017 4:00p [facility] Internal Gustavolauren Maldonado, E11.42 Type 2 diabetes Medicine - ELECTRIC TRUCKER mellitus with [place] diabetic polyneuropathy M79.672 Pain in left foot I10 Essential (primary) hypertension Office Visit 10/29/2017 9:00a [facility] Internal Gustavolauren Maldonado, E11.42 Type 2 diabetes Medicine - ELECTRIC TRUCKER mellitus with [place] diabetic polyneuropathy F33.0 Major depressive disorder, recurrent, mild B85.0 Pediculosis due to Pediculus humanus capitis Office Visit 09/03/2017 1:40p [facility] Internal Gustavo Maldonado, E11.42 Type 2 diabetes Medicine - ELECTRIC TRUCKER mellitus with [place] diabetic polyneuropathy R19.7 Diarrhea, unspecified Office Visit 07/23/2017 2:00p [facility] Internal Gustavo Maldonado, F33.0 Major depressive Medicine - ELECTRIC TRUCKER disorder, [place] recurrent, mild F41.9 Anxiety disorder, unspecified R35.0 Frequency of micturition Office Visit 06/18/2017 11:00a [facility] Internal Gustavo Maldonado, E11.40 Type 2 diabetes Medicine - ELECTRIC TRUCKER mellitus with [place] diabetic neuropathy, unsp Z13.220 Encounter for screening for lipoid disorders F33.0 Major depressive disorder, recurrent, mild Office Visit 12/31/2016 11:00a Orthopedic Kael Keene M25.571 Pain in right Services Of Jinny Banerjee MD ankle and joints of right foot M76.61 Achilles tendinitis, right leg Office Visit 12/18/2016 11:00a [facility] Internal Khai Lam, M25.571 Pain in right Medicine - M.D. ankle and [place] joints of right foot E11.40 Type 2 diabetes mellitus with diabetic neuropathy, unsp Office Visit 12/16/2016 2:20p [facility] Teresa Iqbal M25.571 Pain in right Infectious Tom Ruggiero ankle and Diseases joints of right foot Office Visit 11/23/2016 4:20p [facility] Teresa Iqbal E11.40 Type 2 Infectious Tom Ruggiero diabetes Diseases mellitus with diabetic neuropathy, unsp R21 Rash and other nonspecific skin eruption Office Visit 11/06/2016 10:40a [facility] Internal Khai E11.621 Type 2 diabetes Milind Lam M.D. 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 Office Visit 10/27/2016 11:55a Wound Care Mat Potter E11.621 Type 2 diabetes Center AT [facility] Tom Mckeon mellitus with foot ulcer L97.411 Non-prs chr ulcer of right heel and midft lmt to brkdwn skin L03.115 Cellulitis of right lower limb Office Visit 10/20/2016 11:20a [facility] Internal Khai J44.9 Chronic Medicine - Tom Lam obstructive [place] pulmonary disease, unspecified R09.02 Hypoxemia K40.40 Unil inguinal hernia, w gangrene, not specified as recurrent E11.8 Type 2 diabetes mellitus with unspecified complications E11.40 Type 2 diabetes mellitus with diabetic neuropathy, unsp Office [facility], K56.69 Other intestinal 12:28p Asskika singer M.D. obstruction Hospitalists E11.42 Type 2 diabetes mellitus with diabetic polyneuropathy Office Visit 10/14/2016 [facility] E11.42 Type 2 diabetes 12:28p Asskika singer M.D. mellitus with Hospitalists diabetic polyneuropathy K56.69 Other intestinal obstruction [facility] Other intestinal 12:27p Assockika NP obstruction Hospitalists E13.10 Oth diabetes mellitus with ketoacidosis without coma Office 10/12/2016 [facility] Serafin E11.42 Type 2 diabetes Visit 12:26p Assockika PA mellitus with Hospitalists diabetic polyneuropathy K56.69 Other intestinal obstruction Office Visit 10/12/2016 Surgical Serjio S. K40.30 Unil inguinal 7:00a [facility] MD Keisha hernia, w obst, w/o gangr, not spcf as recur Office Visit 05/15/2015 [facility] Axel Mercado, 599.0 UTI Urinary 8:19a Asskika singer M.D. Tract Infection Hospitalists Site Not Spec 250.02 Diabetes Mellitus W/O Compl Type II Or Unspec Type Uncontrol Plan of Treatment Future Appointment(s):01/05/2019 2:20 pm - GEO Maher at [facility]12/06/2018 11:00 am - Ebony Christie NP at [facility] Bdcsypcqfpznwvlm60/21/2019 1:40 pm - Gustavo Maldonado NP at [facility] Internal Medicine - Xzaviynnd40/07/[address] MDE11.621 Type 2 diabetes mellitus with foot ulcerFollow up:10-14 days with MSharifMarkerInstructions:1. Check blood glucose at least 4 times per day. 2. Return in 2 weeks or sooner if you are experiencing lows.
--- OUTSIDE RECORDS SUMMARY | 2018-12-08 00:06 | XMS REPORT | Continuity of Care Document ---
:1965 External Reference #:[id number] Author Name Nahomi Mckenna Care Team Providers Name Role Phone Zoya Patten MD Primary Care Physician Unavailable Payers Date Identification Numbers Payment Provider Subscriber Effective: 2016 Policy Number: [id number] [place] [employer] Group Number: [id number] [address] PayID: [id number] [place] [address] Expires: 2016 Policy Number: [id number] [employer] Lesly Garcia Meche PayID: [id number] [address] [address] TARIK Julio [address] Advance Directives Type Date Description Status Comment [...] Use Denies Drug Use Smoking Status Reviewed: 11/24/18 Patient is a former smoker Exercise Type/Frequency Exercises sporadically clean house Allergies, Adverse Reactions, Alerts Date Description Reaction Status Severity Comments 10/20/2016 Aspirin migraine w/ generic Active nausea 10/20/2016 Latex Active break out 10/16/2016 NKDA Inactive Medications Medication Date Status Form Strength Qnty SIG Indications Ordering Provider [facility]ane 11/24/ Active Misc 1unit Use while L97.529 Gustavo 2019 s ambulating AYESHA Maldonado Advair Diskus 11/24/ Active Aerosol 500-50mcg 60uni [...] symptoms. Admelog 11/18/ Active Solution 100Unit/M 30ml For use in Zavala 2019 L pump MD [...] 0.5-2.5(3 90uni 1 vial in J44.9 Gustavo [place]/Albuter 2017 )mg/3ML ts nebulizer AYESHA Maldonado ol Sulfate four times a day as needed for asthma Precision Xtra 06/09/ Active Strips 100un use 3 times E11.65 [place] Blood Glucose 2018 its daily for MD Alma Rosa Test Strips glucose testing Precision Xtra 06/09/ Active Device 1unit use with E11.65 [place] Monitor 2017 s glucose/ket MD Alma Rosa one strips Ventolin HFA 04/21/ Active Aerosol 108(90Bas 8unit 2 puffs by Gustavo 2017 e) s mouth four AYESHA Maldonado mcg/Act times a day as needed Lyrica 12/15/ Active Capsules 75mg 60cap 1 by mouth E11.42 Gustavo 2017 s twice a day AYESHA Maldonado Pen [place] 09/03/ Active Misc 31G X 5 100un use with Zavala 12/03" 2017 mm its lantus subq MD Alma Rosa everyday Unifine Pentips / Active Misc 31G X 5 Use With Unknown 0000 mm Lantus Once Daily Aspirin Adult / Active Tablets DR 81mg 1 by mouth Unknown Low Dose 0000 every day Humulin R U-500 / Active Solution 500Unit/M 30 units Zavala Kwikpen 0000 Pen-Inject L twice daily MD Alma Rosa if pump fails Lisinopril 11/21/ Hx Tablets 5mg 30tab 1 by mouth E11.65 Zavala 2018 - s every day MD Alma Rosa 2018 Lisinopril 11/18/ Hx Tablets 10mg Take by E11.65 Maddy 2019 - mouth daily Marker, 11/21/ RPA-C 2019 Amoxicillin/Cla 10/25/ Hx Tablets 875-125mg 20tab take one J01.90 Gustavo vulanate 2018 - s tablet q12 AYESHA Maldonado Potassium 15/ hours for 2018 10 days Advair Diskus [...] prior to AYESHA Maldonado 05/13/ dinner 2017 Admelog 05/13/ Hx Solution 100Unit/M 3ml 8 [...] s capsules AYESHA Maldonado 05/24/ once daily 2017 Rid Lice Hx [...] Oxalate 2017 - s once daily Erica, [employer]IST 07/23/ for 1 week 2017 then increase to 1 tab daily. Basaglar 01/29/ Hx Solution 100Unit/M 30ml inject 50 E11.65 Gustavo Kwikpen 2017 - Pen-Inject L units Erica, [employer] SPECIALIST 06/09/ daily, to 2018 increase by 10 units every day BS over 300. Cymbalta 12/18/ Hx Caps DR 30mg 60cap 2 tabs M25.571 Khai 2017 - Part s daily , 06/18/ M.D. 2017 Nystatin-Triamc 12/16/ Hx Ointment 582866-0. 30uni apply to M25.571 Yohan inolone 2017 - 1Unit/GM- ts affected D. 06/18/ % area twice Macque, 2017 a day M.D. Ondansetron HCL 10/20/ [...] daily Leif Ridley Sodium 2017 - s M.D. 2017 Ventolin HFA 10/20/ Hx Aerosol 108(90Bas 8gm 2 puffs by Leif Ridley 2017 - e) mouth four 06/18/ mcg/Act times a day M.D. 2017 as needed Lantus Solostar / Hx Solution 100Unit/M 30ml 50 units E11.621 Alaina 0000 - Pen-Inject L daily Malathi, M.D. 2016 Gabapentin / Hx Tablets 600mg 120ta 2 by mouth M25.571 Khai 0000 - bs 3 times a [place], M.D. 2016 Cymbalta / Hx Caps DR 30mg 1 by mouth Khai 0000 - Part every day Genaro, 12/18/ M.D. 2016 Omeprazole / Hx Capsules DR 40mg once daily Sen, 0000 - Jerel, 06/18/ 2016 Gabapentin / Hx Tablets 600mg take one Unknown 0000 - tablet by 06/07/ mouth three 2018 times a day Doxycycline / Hx Tablets 100mg 1 by mouth Unknown Hyclate 0000 - twice a day 06/08/ for 60 days 2017 Doxycycline / Hx [...] Prefilled 0000 - 0Unit/ML Units Twice Flexpen Daily 2019 Anoro Ellipta / Hx Aerosol [...] One Unknown Calcium 0000 - Tablet By Mouth AT 2019 Bedtime Venlafaxine HCL / Hx Caps ER 75mg Take Three Unknown ER 0000 - 24HR Capsules By Mouth Every 2019 Day Cipro / Hx Tablets 500mg 1 by mouth Unknown 0000 - twice a day 2018 Immunizations Description No Information Available Vital Signs Date Vital Result Comment 11/24/2018 1:44pm Height 63 inches 5'3" Weight [...] Result H/L Range Note Laboratory test finding 11/24/2018 [facility] Glucose Random 132 Laboratory test finding 11/21/2018 [facility] Glucose Random 121 Hemoglobin A1c >14.0 High 5-7 Urine Drug 11/04/2018 [facility] Amphetamine Ur None Detected None Detect SCR ED & [address] [place] [address] [phone] Barbiturates Urine Screen None Detected None Detect Benzodiazepine Urine Screen None Detected None Detect Urine Cannabinoids Screen None Detected None Detect Urine Cocaine Screen None Detected None Detect Urine Opiates Screen None Detected None Detect Urine Phencyclidine Screen None Detected None Detect 1 Laboratory test 11/04/2018 [facility] Point of Care 268 mg/dL High 70-100 [address] Glucose [place], [place] [id number] [phone] Rapid Influenza 11/04/2018 [facility] Influenza A NEGATIVE Negative 3 A & B Molecular [address] Molecular [place], [place] [id number] [phone] Influenza B Molecular NEGATIVE Negative Laboratory test 11/04/2018 [facility] Point of Care 404 mg/dL High 70-100 [address] Glucose [place], [place] [address] [phone] Urine Culture And 11/04/2018 [facility] Urine Culture SEE RESULT [address] BELOW [place], [place] [address] [phone] Laboratory test 11/04/2018 [facility] Rapid SEE RESULT [address] [place] [address] Antigen [phone] Laboratory test 11/04/2018 [facility] Lactic Acid 1.1 mmol/L N 0.5-2.0 [address] [place], [place] [address] [phone] CBC Auto Diff 11/04/2018 [facility] White Blood 6.7 N 3.5- 10.[address] Count 10^3/[place] [address] [phone] Red Blood Count 4.45 10^6/uL N 4.00-5.40 [...] % Nucleated Red Blood Cells % 0 Venous Blood Gas 11/04/2018 [facility] Venous Blood pH 7.40 N 7.32-7.43 [address] [place] [address] [phone] Venous Pco2 44 mmHg N 41-51 Venous Po2 < 38.0 mmHg N 35-45 Venous O2 Saturation 65.6 % Low 70-80 Venous Blood Base Excess 2.0 mmol/L N 0.0-4.0 8 Venous Bicarbonate Hco3 25.6 mmol/L N 24-28 Comp Metabolic Panel 11/04/2018 [facility] Sodium 136 mmol/L N 135-[address] [place] [address] [phone] Potassium 3.5 mmol/L N 3.5-5.0 Chloride 101 [...] Egfr Non- 69.6 >60 Egfr 84.2 >60 9 Urinalysis Profile 11/04/2018 [facility] Urine Color Yellow [address] [place] [address] [phone] Urine Appearance Cloudy Urine Specific [place] 1.020 N 1.010-1.030 Urine pH 6.0 N [...] Cell Present Abnormal Absent Laboratory test 11/04/2018 [facility] C Reactive 3.62 mg/L N < 8.[address] [place] [address] [phone] Creatine Kinase(CK) 41 U/L N 10-223 Alcohol < 10 mg/dL N <10 Magnesium 1.8 mg/dL Low 1.9-2.7 Troponin-I (TnI) 0.00 ng/mL <0.04 10 TSH (Thyroid Stim Horm) 0.51 mcIU/mL N 0.34-5.60 Drug Abuse 20 10/25/2018 [facility] Urine Amphetamine Negative ng/mL [address] [place] [address] [phone] Urine Barbiturates Negative ng/mL 12 Urine Benzodiazepines Negative ng/mL 13 Urine Cocaine Negative ng/mL 14 Urine Phencyclidine Negative ng/mL Cutoff: 25 Urine Tetrahydrocannabinol Negative ng/mL Cutoff: 50 15 Creatinine, Urine 30.5 mg/dL Specific [place] 1.007 pH 5.3 Oxidants Negative 16 Adulterants Comment Normal Codeine, Ur Not Detected ng/mL Cutoff: 25 17 Vampepv-1-cihr-glucuronide, Ur Not Detected ng/mL 18 Morphine, Ur Not Detected ng/mL Cutoff: 25 19 Wjlfhmuh-2-jfsh-glucuronide, U Not Detected ng/mL 20 6-monoacetylmorphine, Ur Not Detected ng/mL Cutoff: 25 21 Hydrocodone, Ur Not Detected ng/mL Cutoff: 25 22 Norhydrocodone, Ur Not Detected ng/mL Cutoff: 25 23 Dihydrocodeine, Ur Not Detected ng/mL Cutoff: 25 24 Hydromorphone, Ur Not Detected ng/mL Cutoff: 25 25 Ovzcfnpdnudzd2yavfihthxynkxsm Not Detected ng/mL 26 Oxycodone, Ur Not Detected ng/mL Cutoff: 25 27 Noroxycodone, Ur Not Detected ng/mL Cutoff: 25 28 Oxymorphone, Ur Not Detected ng/mL Cutoff: 25 29 Sqzyxjoptuy-5-ykkp-glucuronide Not Detected ng/mL 30 Noroxymorphone, Ur Not Detected ng/mL Cutoff: 25 31 Fentanyl, Ur Not Detected ng/mL Cutoff: 2 32 Norfentanyl, Ur Not Detected ng/mL Cutoff: 2 33 Meperidine, Ur Not Detected ng/mL Cutoff: 25 34 Normeperidine, Ur Not Detected ng/mL Cutoff: 25 35 Naloxone, Ur Not Detected ng/mL Cutoff: 25 36 Wdyoetvp-5-cldl-glucuronide, U Not Detected ng/mL 37 Methadone, Ur Not Detected ng/mL Cutoff: 25 38 Eddp, Ur Not Detected ng/mL Cutoff: 25 39 Propoxyphene, Ur Not Detected ng/mL Cutoff: 25 40 Norpropoxyphene, Ur Not Detected ng/mL Cutoff: 25 41 Tramadol, Ur Not Detected ng/mL Cutoff: 25 42 O-desmethyltramadol, Ur Not Detected ng/mL Cutoff: 25 43 Tapentadol, Ur Not Detected ng/mL Cutoff: 25 44 N-desmethyltapentadol, Ur Not Detected ng/mL Cutoff: 50 45 Kvonqjlbvr-erbu-vmwfzhmithr, U Not Detected ng/mL 46 Buprenorphine, Ur Not Detected ng/mL Cutoff: 5 47 Norbuprenorphine, Ur Not Detected ng/mL Cutoff: 5 48 Norbuprenorphine glucuronide Not Detected ng/mL Cutoff: 20 49 Opioid Interpretation See Comment 50 Wound 10/13/2018 [facility] Wound/Misc SEE RESULT 51 Culture/Sensi [address] [place] [address] Stain [phone] Laboratory test 09/04/2018 [facility] Point of Care 214 mg/dL High 70-1 [address] Glucose 00 [place] [address] [phone] Laboratory test 09/04/2018 [facility] Point of Care 63 mg/dL Low 70-1 [address] Glucose 00 [place], [place] [address] [phone] Urine Culture And 09/04/2018 [facility] Urine Culture SEE RESULT [address] [place] [address] [phone] Laboratory test 09/04/2018 [facility] Blood Culture SEE RESULT [address] BELOW [place], [place] [address] [phone] Urinalysis Profile 09/04/2018 [facility] Urine Color Yellow [address] [place] [address] [phone] Urine Appearance Cloudy Urine Specific [place] 1.021 N 1.010-1.030 Urine pH 5.0 N 5-9 Urine Urobilinogen Negative Negative Urine Ketones Negative Negative Urine Protein 2+(100 mg/dL) Abnormal Negative Urine Leukocytes Negative Negative Urine Blood Negative Negative * * Abnormal Negative 56 Urine Nitrite Negative Negative Urine Bilirubin Negative Negative Urine Glucose 3+(>=500 mg/dL) Abnormal Negative Urine White Blood Cell 1+(6-10/hpf) Abnormal Absent Urine Red Blood Cell Trace(0-2/hpf) Absent Urine Bacteria 1+ Abnormal Absent Urine Squamous Epithelial Cell Present Abnormal Absent Laboratory test 09/04/2018 [facility] Point of Care 226 mg/dL High 70-100 [address] Glucose [place], [place] [address] [phone] Laboratory test 09/04/2018 [facility] Point of Care 84 mg/dL N 70-100 [address] Glucose [place], [place] [address] [phone] Laboratory test 09/04/2018 [facility] Point of Care 87 mg/dL N 70-100 [address] Glucose [place], [place] [address] [phone] Laboratory test 09/04/2018 [facility] B-Type 62 pg/mL <=[address] [place] [address] Peptide BNP [phone] Comp Metabolic 09/04/2018 [facility] Sodium 137 N 135-[address] mmol/[place] [address] [phone] Potassium 3.2 mmol/L Low 3.5-5.0 Chloride 101 [...] Egfr Non- 52.9 >60 Egfr 64.0 >60 60 Laboratory test 09/04/2018 [facility] Creatine 64 U/L N 10- [address] Kinase(CK) [place] [address] [phone] C Reactive Protein 3.76 mg/L N <8.01 Troponin-I (TnI) 0.00 ng/mL <0.04 61 Lactic Acid 3.1 mmol/L High 0.5-2.0 62 Laboratory test 09/04/2018 [facility] Erythrocyte Sed 34 mm/Hr High 0-[address] [place] [address] [phone] Procalcitonin < 0.1 ng/mL <0.6 63 Rapid Influenza A B Antigen SEE RESULT BELOW 64 CBC Auto Diff 09/04/2018 [facility] White Blood 9.5 10^3/uL N 3.5-10.[address] [place] [address] [phone] Red Blood Count 4.72 10^6/uL N 4.00-5.40 [...] Blood Cells % 0.1 Laboratory test 09/04/2018 [facility] Partial 25.2 seconds Low 26.0-36.3 finding [address] [facility] [place] [address] PTT [phone] Fibrinogen 383.2 mg/dL N 110.8-404.3 Inr/Protime 09/04/2018 [facility] Inr 0.80 N 0.77-1.02 [address] [place] [address] [phone] Laboratory test 07/18/2018 [facility] C-Peptide 2.2 ng/mL 1.1 - 4.[address] [place] [address] [phone] Insulin Level 28.9 mcIU/mL High 2.0-16.0 Glucose 476 mg/dL High 70-100 Laboratory test finding 07/11/2018 [facility] Hemoglobin A1c 13.4 High 5-7 Glucose Random 478 Ketones 0.3 Laboratory test finding 06/09/2018 [facility] Glucose Random 170 Urinalysis Profile 05/26/2018 [facility] Urine Color Yellow [address] [place] [address] [phone] Urine Appearance Cloudy Urine Specific [place] 1.025 N 1.010-1.030 Urine pH 7.0 N [...] Present Abnormal Absent Urine Culture And 05/26/2018 [facility] Urine Culture SEE RESULT [address] [place] [address] [phone] CBC Auto Diff 05/26/2018 [facility] White Blood 5.8 10^3/uL N 3.5-[address] Count 0.8 [place] [address] [phone] Red Blood Count 4.41 10^6/uL N 4.00-5.40 [...] Cells % 0.3 Comp Metabolic Panel 05/26/2018 [facility] Sodium 133 mmol/L Low 135-[address] [place], [place] [address] [phone] Potassium 4.2 mmol/L N 3.5-5.0 Chloride 95 [...] Egfr Non- 61.5 >60 Egfr 74.4 >60 67 Glucose 667 mg/dL High 70-100 68 Laboratory 05/26/2018 [facility] C Reactive 8.76 mg/L High < 8.01 test finding [address] Protein [place], [place] [address] [phone] Laboratory 05/26/2018 [facility] Point of Care > 444 High 70- 100 69 test finding [address] Glucose mg/dL [place], [place] [address] [phone] Wound 05/24/2018 [facility] Wound/Misc SEE 70 Culture/Sensi [address] [place] [address] Stain BELOW [phone] Laboratory 05/24/2018 [facility] Hemoglobin A1c >14 High 5-7 test finding Laboratory 05/16/2018 [facility] Vitamin B12 538 pg/mL N 180- 504 71 test finding [address] [place], [place] [address] [phone] Lipid Profile 05/16/2018 [facility] Triglycerides 172 mg/dL 72 (Trig/Chol/HDL [address] ) [place], [place] [address] [phone] Cholesterol 194 mg/dL 73 HDL Cholesterol 57.3 mg/dL 74 LDL Cholesterol 102 mg/dL 75 Comp Metabolic Panel 05/16/2018 [facility] Sodium 139 mmol/L N 135-[address] [place] [address] [phone] Potassium 3.5 mmol/L N 3.5-5.0 Chloride 101 [...] Egfr Non- 37.6 >60 Egfr 45.5 >60 76 Urine Microalbumin 05/16/2018 [facility] Urine Creatinine 511.74 mg/dL Random [address] [place] [address] [phone] Ur Microalbumin (mg/L) 1196.9 Urine Microalbumin/Creatinine 233.8 High <31 CBC Auto Diff 05/16/2018 [facility] White Blood 7.7 10^3/uL N 3.5-10.[address] [place] [address] [phone] Red Blood Count 4.26 10^6/uL N 4.00-5.40 [...] Nucleated Red Blood Cells % 0.1 Urine Culture And 07/23/2017 [facility] Urine Culture SEE RESULT [address] [place] [address] [phone] Ua Routine 07/23/2017 [facility] Ua Specific 1.025 [place] Ua PH 5 Ua Color dark yellow Ua Appera cloudy Ua WBC positive Ua Protein 500 Ua Glucose 1000 Ua Ketones negative Ua Bilirubin small Ua Urobilinogen normal Ua Nitrite negative Ua Occult Blood 250 Laboratory test 06/18/2017 [facility] Hemoglobin A1c 12.6 High 5-7 finding Laboratory test 12/18/2016 [facility] Hemoglobin A1c 14.0 High 5-7 finding Laboratory test 11/30/2016 [facility] C Reactive 2.40 mg/L N < 5.00 [address] [place] [address] [phone] Comp Metabolic 11/30/2016 [facility] Sodium 131 mmol/L Low 133 -[address] [place] [address] [phone] Potassium 4.3 mmol/L N 3.5-5.0 Chloride 96 [...] 67.4 N >60 Egfr 86.7 N >60 79 Glucose 557 mg/dL High 70-100 1 The urine specimen was tested at the listed cutoffs: Drug class test level (ng/mL) Amphetamines 500 Barbiturates 200 Benzodiazepine metabolites 200 Cocaine metabolites 150 Cannabinoids 50 Opiates 300 Pcp 25 Specimen was received without chain of custody. Results should be used for medical purposes only. 2 Medical Aides Teacher: [id number] 3 Medical Aides Teacher: [id number] 4 Medical Aides Teacher: [id number] 5 SEE RESULT BELOW Name: LESLY GILES Jose : [address]: Ara Alvarez DO Acct: [id number] Unit: [id number] AGE: 53 Location: [facility] Re11/05/18 SEX: F Status: ADM IN SPEC: [id number] ASHLEY: 11/04/[address]: Soraya MERCEDES REQ: [id number] RECD: 11/04/18 STATUS: CORAZON PIZANO DR: Zoya Patten MD _ SOURCE: URINE SPDESC: ORDERED: Urine Culture Procedure Result Reported Site Urine Culture Final 11/06/18- 938 ML Organism 1 ESCHERICHIA COLI [place] Count >100,000 (Many) CFU/ML 1. ESCHERICHIA COLI [...] . END OF REPORT DEPARTMENT OF PATHOLOGY, [address] [place] [address] Renaldo Santos M.D. Director [facility] # [id number] 6 SEE RESULT BELOW Name: LESLY GILES : [address]: Rohan Nathan MD Acct: [id number] Unit: [id number] AGE: 53 Location: ED Re11/04/18 SEX: F Status: PRE ER SPEC: [id number] ASHLEY: 11/04/[address]: Soraya MERCEDES REQ: [id number] RECD: 11/04/18 STATUS: CORAZON PIZANO DR: Zoya Nathan MD _ SOURCE: NASAL SPDESC: ORDERED: Flu A B Request Procedure Result Reported Site Rapid Influenza A B Request Final 11/04/181942 ML Specimen received for Influenza A/B Molecular testing * ML - Main Lab . END OF REPORT DEPARTMENT OF PATHOLOGY, [address] [place] [address] Renaldo Santos M.D. Director [facility] # [id number] 7 [facility] Severe Sepsis and Septic Shock Management Bundle Measure requires all lactic acids initially measuring >2.0 mmol/L be repeated. 8 Reference ranges based on room air. 9 Because ethnic data is not always readily [...] 15-29 5 Kidney failure <15 (or dialysis) 10 Troponin-I testing on Plasma Separator Tubes (PST) has a known false positive rate of 0.20-0.40%. All positive troponins reflex immediate secondary confirmatory testing. 11 REFERENCE VALUE Cutoff: 500 12 REFERENCE VALUE Cutoff: 200 13 REFERENCE VALUE Cutoff: 100 14 REFERENCE VALUE Cutoff: 150 15 ADDITIONAL INFORMATION This report is intended for use in clinical monitoring or management of patients. It is not intended for use in employment-related testing. 16 REFERENCE VALUE Cutoff: 200 mg/L 17 Tylenol 3 18 Metabolite of codeine REFERENCE VALUE Cutoff: 100 19 Laura Brink MS Contin; Also a minor metabolite (10%) of codeine and can be seen in low concentrations (<2,000 ng/mL) with poppy seed ingestion. 20 Metabolite of morphine REFERENCE VALUE Cutoff: 100 21 Metabolite of heroin 22 Lortab, [place], Vicodin; Also a very minor metabolite of codeine and impurity (<1%) of oxycodone. 23 Metabolite of hydrocodone 24 Metabolite of hydrocodone 25 DilHemalatha riverao; Also a metabolite of hydrocodone and a minor (<5%) metabolite of morphine. 26 Metabolite of hydromorphone REFERENCE VALUE Cutoff: 100 27 Endocet, Percocet, Oxycontin 28 Metabolite of oxycodone 29 Numorphan, Opana; Also a metabolite of oxycodone. 30 Metabolite of oxymorphone REFERENCE VALUE Cutoff: 100 31 Metabolite of oxymorphone 32 Actiq, Duragesic, Fentora 33 Metabolite of fentanyl 34 Demerol 35 Metabolite of meperidine 36 Narcan 37 Metabolite of naloxone REFERENCE VALUE Cutoff: 100 38 Dolophine 39 Metabolite of methadone 40 Darvon, Darvocet 41 Metabolite of propoxyphene 42 Tradol, Ultram, Ultracet 43 Metabolite of tramadol 44 Nucynta 45 Metabolite of tapentadol 46 Metabolite of tapentadol REFERENCE VALUE Cutoff: 100 47 Buprenex, Suboxone 48 Metabolite of buprenorphine 49 Metabolite of buprenorphine 50 No opioids were detected. The absence of expected drug(s) and/or drug metabolite(s) may indicate non-compliance, altered pharmacokinetics, inappropriate timing of specimen collection relative to drug administration, diluted/adulterated urine, or limitations of testing. ADDITIONAL INFORMATION This test was developed and its performance characteristics determined by [facility] in a manner consistent with CLIA requirements. This test has not been cleared or approved by the U.S. Food and Drug Administration. Test Performed by: [facility] [address] [place] [address] 53 SEE RESULT BELOW Name: LESLY GILES Jose : [address]: Mat Mckeon MD Acct: [id number] Unit: [id number] AGE: 53 Location: WOUND Re10/13/18 SEX: F Status: REG REF SPEC: [id number] ASHLEY: 10/13/[address]: Mat Mckeon MD REQ: [id number] RECD: 10/13/18 STATUS: CORAZON PIZANO DR: Gustavo Maldonado [employer] SPECIALIST _ SOURCE: TOE SPDESC: ORDERED: Culture Stain [...] CONTINUED ON NEXT PAGE DEPARTMENT OF PATHOLOGY, [address] [place] [address] Renaldo Santos M.D. Director [facility] # [id number] Patient: LESLY GILES [id number] (Continued) Specimen: [id number] Collected: 10/13/18-1354 Received: 10/13/18 (Continued) Procedure Result Reported Site Wound/Misc Culture Final (continued) * These antibiotics are not available in the [facility] Formulary Contact the Microbiology Department for any additional antibiotic reporting. * ML - Main Lab . END OF REPORT DEPARTMENT OF PATHOLOGY, [address] [place] [address] Renaldo Santos M.D. Director [facility] # [id number] 52 Medical Aides Teacher: [id number] Medical Aides Teacher: [id number] 54 SEE RESULT BELOW Name: LESLY GILES : [address]: Khai Lam MD Acct: [id number] Unit: [id number] AGE: 53 Location: [place] [address] Re09/04/18 SEX: F Status: ADM IN SPEC: [id number] ASHLEY: 09/05/[address]: Hailey Head MD REQ: [id number] RECD: 09/05/18 STATUS: CORAZON PIZANO DR: Gustavo Maldonado [employer] SPECIALIST _ SOURCE: URINE SPDESC: ORDERED: Urine Culture Procedure Result Reported Site Urine Culture Final 09/06/18- 1010 ML Organism 1 STREP GROUP B [place] Count >100,000 (Many) CFU/ML Susceptibility testing of penicillins and other B-lactams approved by FDA for treatment of Streptococcus pyogenes (Group A Strep) and Streptococcus agalactiae (Group B Strep) is not necessary for clinical purposes and need not be done routinely, since as with vancomycin, resistant strains have not been recognized. (CLSI F431-L54;p.66) Positive isolates will be saved for one week. Please call the Microbiology Laboratory if further susceptibility testing is needed. * ML - Main Lab . END OF REPORT DEPARTMENT OF PATHOLOGY, [address] [place] [address] Renaldo Santos M.D. Director [facility] # [id number] 55 SEE RESULT BELOW Name: LESLY GILES : [address]: Emily Restrepo MD Acct: [id number] Unit: [id number] AGE: 53 Location: [place] [address] Re09/04/18 Dis: 09/06/18 SEX: F Status: DIS IN SPEC: [id number] ASHLEY: 09/04/18-1747 [facility] [address]: Hailey Head MD REQ: [id number] RECD: 09/04/18 STATUS: CORAZON PIZANO DR: Gustavo Maldonado [employer] SPECIALIST _ SOURCE: BLOOD,VENO [facility]: ORDERED: Blood Cult Procedure Result Reported Site Aerobic Culture Bottle Final 09/09/18- 175 ML No Growth Day 5 Anaerobic Culture Bottle Final 09/09/18- 175 ML No Growth Day 5 * ML - Main Lab . END OF REPORT DEPARTMENT OF PATHOLOGY, [address] [place] [address] Renaldo Santos M.D. Director [facility] # [id number] 56 *Ascorbic acid is present which may interfere with detection of blood. 57 Medical Aides Teacher: [id number] Medical Aides Teacher: [id number] 59 Medical Aides Teacher: [id number] 60 Because ethnic data is not always readily [...] 15-29 5 Kidney failure <15 (or dialysis) 61 Troponin-I testing on Plasma Separator Tubes (PST) has a known false positive rate of 0.20-0.40%. All positive troponins reflex immediate secondary confirmatory testing. 62 Critical Result LACT:3.1 Called to [id number] at: 18:13:46 by:[id number] Read back by:[facility] Severe Sepsis and Septic Shock Management Bundle Measure requires all lactic acids initially measuring >2.0 mmol/L be repeated. 63 Interpretive information available on [facility] Test Catalog at [email or web address] 64 SEE RESULT BELOW Name: LESLY GILES : [address]: Khai Lam MD Acct: [id number] Unit: [id number] AGE: 53 Location: ICU [id number] Re09/04/18 SEX: F Status: ADM IN SPEC: [id number] ASHLEY: 09/04/18 [facility] [address]: Hailey Head MD REQ: [id number] RECD: 09/04/18 STATUS: CORAZON PIZANO DR: Gustavo Maldonado [employer] SPECIALIST _ SOURCE: NASAL SPDESC: ORDERED: Flu A B Request Procedure Result Reported Site Rapid Influenza A B Request Final 09/04/182107 ML Specimen received for Influenza A/B Molecular testing * ML - Main Lab . END OF REPORT DEPARTMENT OF PATHOLOGY, [address] [place] [address] Renaldo Santos M.D. Director [facility] # [id number] 65 Test Performed by: [facility] [address] [place] [address] 66 SEE RESULT BELOW Name: LESLY GILES : [address]: Wilber Galarza DO Acct: [id number] Unit: [id number] AGE: 52 Location: ICU [id number] Re05/27/18 SEX: F Status: ADM IN SPEC: [id number] ASHLEY: 05/26/[address]: Oziel Frank MD REQ: [id number] RECD: 05/26/18 STATUS: CORAZON PIZANO DR: Gustavo Maldonado [employer] SPECIALIST _ SOURCE: URINE SPDESC: ORDERED: Urine Culture Procedure Result Reported Site Urine Culture Final 09/08/18- 0828 ML Organism 1 ESCHERICHIA COLI [place] Count >100,000 (Many) CFU/ML 1. ESCHERICHIA COLI [...] . END OF REPORT DEPARTMENT OF PATHOLOGY, [address] [place] [address] Renaldo Santos M.D. Director [facility] # [id number] 67 Because ethnic data is not always readily [...] 15-29 5 Kidney failure <15 (or dialysis) 68 Critical Result GLU:667 Called to [id number] at: 11:07:06 by:[id number] Read back by:[id number] Medical Aides Teacher: [id number] 70 SEE RESULT BELOW Name: LESLY GILES : [address]: Gustavo Maldonado NP Acct: [id number] Unit: [id number] AGE: 52 Location: [facility] Re05/24/18 SEX: F Status: REG REF SPEC: [id number] ASHLEY: 05/24/18-[address] [facility] [address]: Gustavo Maldonado NP REQ: [id number] RECD: 05/24/18 STATUS: COMP _ SOURCE: TOE SPDESC: ORDERED: Culture Stain COMMENTS: [id number] Specimen Description Left great toe Procedure Result [...] CONTINUED ON NEXT PAGE DEPARTMENT OF PATHOLOGY, [address] [place] [address] Renaldo Santos M.D. Director [facility] # [id number] Patient: LESLY GILES [id number] (Continued) Specimen: [id number] Collected: 05/24/18-1255 Received: 05/24/18 (Continued) Procedure Result Reported Site Wound/Misc Culture Final (continued) 05/26/181008 1. STAPHYLOCOCCUS AUREUS (continued) M.I.C. RX --------- ------ Vancomycin <=0.5 S Imipenem-Deduced S * Ampicillin/Sulbactam-Deduced S Cefazolin-Deduced S * These antibiotics are not available in the [facility] Formulary Contact the Microbiology Department for any additional antibiotic reporting. * ML - Main Lab . END OF REPORT DEPARTMENT OF PATHOLOGY, [address] [place] [address] Renaldo Santos M.D. Director [facility] # [id number] 71 Normal Range 180 to 914 Indeterminate Range 145 to 180 Deficient Range <145 72 Desirable: <150 Borderline High: 150-199 High: 200-499 Very High: >500 73 Desirable: <200 Borderline High: 200-239 High: >239 74 Low: <40 Desirable: 40-60 High: >60 75 Desirable: <100 Near Optimal: 100-129 Borderline High: 130-159 High: 160-189 Very High: >189 76 Because ethnic data is not always readily [...] 15-29 5 Kidney failure <15 (or dialysis) 77 SEE RESULT BELOW Name: LESLY GILES : [address]: Gustavo Maldonado NP Acct: [id number] Unit: [id number] AGE: 52 Location: [facility] Re07/23/17 SEX: F Status: REG REF SPEC: [id number] ASHLEY: 07/23/[address]: Gustavo Maldonado NP REQ: [id number] RECD: 07/23/17 STATUS: COMP _ SOURCE: URINE [facility]: ORDERED: Urine Culture COMMENTS: [id number] Urine Source: Random Procedure Result Reported Site Urine Culture Final 07/25/17- 0842 ML Organism 1 ESCHERICHIA COLI [place] Count >100,000 (Many) CFU/ML 1. ESCHERICHIA COLI [...] antibiotic reporting. * ML - MAIN LAB (PSC1) . END OF REPORT * ML=Testing performed at Main Lab DEPARTMENT OF PATHOLOGY, [address] [place] [address] Renaldo Santos M.D. Director [facility] # [id number] 78 Acute inflammation: >10.00 79 Because ethnic data is not always readily [...] 15-29 5 Kidney failure <15 (or dialysis) Procedures Date Code Description Status 05/27/2018 45779 EEG Recording Awake & Asleep Completed 05/27/2018 28859 ECHO Transthorasic Realtime 2D W Doppler & Color Flow Completed Hosp 05/27/2018 63879 EKG, Interpretation Only Completed 05/27/2018 49500 Insert Non-Tunneled Venous Catether Completed 05/27/2018 10183 Endo-Trachial Tube Completed 05/16/2018 35936 Diffusing Capacity Completed 05/16/2018 11642 Plethysmography Determination Lung Volumes & Per Completed Airway Resist 05/16/2018 86775 Pulmonary Function><Bronchodil Completed 11/02/2017 [id number] Diabetic Retinal Eye Exam Completed 06/18/2017 347193375 Diabetic Retinal Eye Exam Completed 10/27/2016 19664 Removal Devitalization Tissue Wound Less Than Equal 20 Completed Square CM 10/12/2016 35733 EKG, Interpretation Only Completed 10/12/2016 82437 Repair Hernia Inguinal > 5Yrs, Incarcerated Or Completed Strangulated 10/12/2016 24254 Repair Hernia Inguinal > 5Yrs, Incarcerated Or Completed Strangulated Encounters Type Date Location Provider Dx Diagnosis Office Visit 11/08/2018 [facility] Piotr Brunner MD N39.0 Urinary tract 10:49a kika Shaffer Hospitalists infection, site not specified B96.20 Unsp Escherichia coli as the cause of diseases classd elswhr E11.621 Type 2 diabetes mellitus with foot ulcer L97.529 Non-pressure chronic ulcer oth prt left foot w unsp severity Office Visit 11/07/2018 10:49a [facility] Piotr Brunner, E11.65 Type 2 diabetes kika Shaffer MD mellitus with Hospitalists hyperglycemia B96.20 Unsp Escherichia coli as the cause of diseases classd elsr N39.0 Urinary tract infection, site not specified E11.621 Type 2 diabetes mellitus with foot ulcer L97.529 Non-pressure chronic ulcer oth prt left foot w unsp severity Office Visit 11/06/2018 10:48a [facility] Ara R33.9 Retention of kika Shaffer, DO urine, Hospitalists unspecified R53.1 Weakness E11.65 Type 2 diabetes mellitus with hyperglycemia E11.621 Type 2 diabetes mellitus with foot ulcer L97.529 Non-pressure chronic ulcer oth prt left foot w unsp severity E11.42 Type 2 diabetes mellitus with diabetic polyneuropathy Office Visit 11/06/2018 [facility] [address], E11.65 Type 2 diabetes 11:16a Endocrinology of MD mellitus with [facility] hyperglycemia Z79.4 [facility] (current) use of insulin Office Visit 11/05/2018 10:48a [facility] Emily R33.9 Retention of kika Shaffer M.D. urine, Hospitalists unspecified R53.1 Weakness E11.69 Type 2 diabetes mellitus with other specified complication E11.621 Type 2 diabetes mellitus with foot ulcer L97.529 Non-pressure chronic ulcer oth prt left foot w unsp severity Office Visit 11/04/2018 [facility] Gale E11.65 Type 2 diabetes 10:47a kika Shaffer NP mellitus with Hospitalists hyperglycemia R53.1 Weakness Office Visit 10/25/2018 11:40a [facility] Internal Gustavo Erica, J44.9 Chronic Medicine - [employer] SPECIALIST obstructive [place] pulmonary disease, unspecified J01.90 Acute sinusitis, unspecified E11.42 Type 2 diabetes mellitus with diabetic polyneuropathy Office Visit 10/13/2018 12:45p Wound Care Mat Potter E11.621 Type 2 diabetes [facility] Tom Mckeon mellitus with foot ulcer E11.42 Type 2 diabetes mellitus with diabetic polyneuropathy M86.672 Other chronic osteomyelitis, left ankle and foot Office Visit 09/27/2018 [facility] [place] Alma Rosa, E11.65 Type 2 diabetes 4:00p Endocrinology of mellitus with Lamination Assembler hyperglycemia E11.649 Type 2 diabetes mellitus with hypoglycemia without coma 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 prt left foot w unsp severity Z79.4 [facility] (current) use of insulin E11.621 Type 2 diabetes mellitus with foot ulcer E11.42 Type 2 diabetes mellitus with diabetic polyneuropathy M20.22 Hallux rigidus, left foot Office Visit 09/06/2018 [facility] Svetlana Bishop, E11.649 Type 2 diabetes 9:57a Assoc,pc N.P. 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 Yohan Iqbal E10.40 Type 1 diabetes For Infectious Martin Ruggiero. mellitus with Diseases diabetic neuropathy, unsp E10.621 Type 1 diabetes mellitus with foot ulcer L97.529 Non-pressure chronic ulcer oth prt left foot w unsp severity T84.89xA Oth comp of internal orthopedic prosth dev/grft, init [facility] E11.649 Type 2 diabetes 9:57a Assoc,pc N.P. 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 Office Visit 09/04/2018 [facility] Eda E11.649 Type 2 diabetes 9:57a Assoc,kika Rincon NP mellitus with Hospitalists hypoglycemia without coma N17.9 Acute kidney failure, unspecified L97.529 Non-pressure chronic ulcer oth prt left foot w unsp severity E11.621 Type 2 diabetes mellitus with foot ulcer E86.0 Dehydration E87.2 Acidosis E87.6 Hypokalemia Office Visit 09/01/2018 1:40p [facility] [address], Z79.4 [facility] Endocrinology of Addi MARIE (current) use of insulin E11.65 Type 2 diabetes mellitus with hyperglycemia B37.3 Candidiasis of vulva and vagina E78.5 Hyperlipidemia, unspecified R35.8 Other polyuria Office Visit 08/15/2018 10:40a [facility] Internal Gustavo Erica, J44.9 Chronic Medicine - [employer] SPECIALIST obstructive [place] pulmonary disease, unspecified S91.102S Unsp opn wnd left great toe w/o damage to nail, sequela B37.3 Candidiasis of vulva and vagina Office Visit 07/11/2018 [facility] [address], E11.65 Type 2 diabetes 10:40a Endocrinology of MD mellitus with Lamination Assembler hyperglycemia B37.3 Candidiasis of vulva and vagina Office Visit 06/09/2018 [facility] [address], E11.65 Type 2 diabetes 2:00p Endocrinology of MD mellitus with Lamination Assembler hyperglycemia E78.5 Hyperlipidemia, unspecified Office Visit 06/07/2018 10:40a [facility] Internal Gustavo Erica, S91.102S Unsp opn wnd Medicine - [employer] SPECIALIST left great toe [place] w/o damage to nail, sequela J44.9 Chronic obstructive pulmonary disease, unspecified E11.42 Type 2 diabetes mellitus with diabetic polyneuropathy I10 Essential (primary) hypertension E78.5 Hyperlipidemia, unspecified Office Visit 05/31/2018 [facility] Xochitl E11.65 Type 2 diabetes 11:03a Assockika M.D. mellitus with Hospitalists hyperglycemia E11.621 Type 2 diabetes mellitus with foot ulcer L97.529 Non-pressure chronic ulcer oth prt left foot w unsp severity E11.641 Type 2 diabetes mellitus with hypoglycemia with coma N39.0 Urinary tract infection, site not specified B96.20 Unsp Escherichia coli as the cause of diseases classd elswhr Office [facility]2018 [facility]621 Type 2 Infectious Tom Ruggiero diabetes Diseases mellitus with foot ulcer L97.521 Non-prs chronic ulcer oth prt l foot limited to brkdwn skin L03.115 Cellulitis of right lower limb E11.65 Type 2 diabetes mellitus with hyperglycemia Office Visit 05/30/2018 11:03a [facility] Xochitl Palmer, E11.621 Type 2 kika Shaffer M.D. diabetes Hospitalists mellitus with foot ulcer L97.529 Non-pressure chronic ulcer oth prt left foot w unsp severity N39.0 Urinary tract infection, site not specified B96.20 Unsp Escherichia coli as the cause of diseases classd elswhr Office Visit 05/29/2018 11:02a [facility] Xochitl Palmer, Z79.4 [facility] Asskika singer M.D. (current) use Hospitalists of [...] Urinary tract infection, site not specified Office Visit 05/27/2018 11:02a Intensivists Wilber Galarza, J96.00 Acute respiratory DO failure, unsp w hypoxia or hypercapnia E11.641 Type 2 diabetes mellitus with hypoglycemia with coma N17.9 Acute kidney failure, unspecified I95.9 Hypotension, unspecified R00.1 Bradycardia, unspecified Office Visit 05/27/2018 [facility] Danny Kelley R40.20 Unspecified coma 11:01a Assoc,pc Tom LAWRENCE Hospitalists J96.00 Acute respiratory failure, unsp w hypoxia or hypercapnia R00.1 Bradycardia, unspecified I95.9 Hypotension, unspecified R29.2 Abnormal reflex Office 05/27/2018 [facility] Yoly G93.40 Encephalopathy, Visit 7:00a Sommer Chanel MD unspecified Office 05/26/2018 [facility] Kandis E11.65 Type 2 diabetes Visit 11:01a Assoc,pc Hospitalists Jose Alberto, [employer] SPECIALIST mellitus with hyperglycemia L97.429 Non-prs chronic ulcer of left heel and midfoot w unsp severt E11.621 Type 2 diabetes mellitus with foot ulcer N39.0 Urinary tract infection, site not specified I10 Essential (primary) hypertension Office Visit 05/24/2018 11:40a [facility] Internal Gustavo Maldonado, Z79.84 [facility] ( current) Medicine - [employer] SPECIALIST use of oral [place] hypoglycemic drugs E11.42 Type 2 diabetes mellitus with diabetic polyneuropathy L03.116 Cellulitis of left lower limb S91.102S Unsp opn wnd left great toe w/o damage to nail, sequela Office Visit 04/21/2018 10:20a [facility] Internal Gustavo Maldonado, E11.42 Type 2 diabetes Medicine - [employer] SPECIALIST mellitus with [place] diabetic polyneuropathy I10 Essential (primary) hypertension R09.02 Hypoxemia B85.2 Pediculosis, unspecified Office Visit 01/17/2018 2:00p [facility] Internal Gustavo Maldonado, E11.42 Type 2 diabetes Medicine - [employer] SPECIALIST mellitus with [place] diabetic polyneuropathy F33.0 Major depressive disorder, recurrent, mild I10 Essential (primary) hypertension Office Visit 12/15/2017 4:00p [facility] Internal Gustavo Maldonado, E11.42 Type 2 diabetes Medicine - [employer] SPECIALIST mellitus with [place] diabetic polyneuropathy M79.672 Pain in left foot I10 Essential (primary) hypertension Office Visit 10/29/2017 9:00a [facility] Internal Gustavo Maldonado, E11.42 Type 2 diabetes Medicine - [employer] SPECIALIST mellitus with [place] diabetic polyneuropathy F33.0 Major depressive disorder, recurrent, mild B85.0 Pediculosis due to Pediculus humanus capitis Office Visit 09/03/2017 1:40p [facility] Internal Gustavo Maldonado, E11.42 Type 2 diabetes Medicine - [employer] SPECIALIST mellitus with [place] diabetic polyneuropathy R19.7 Diarrhea, unspecified Office Visit 07/23/2017 2:00p [facility] Internal Gustavo Maldonado, F33.0 Major depressive Medicine - [employer] SPECIALIST disorder, [place] recurrent, mild F41.9 Anxiety disorder, unspecified R35.0 Frequency of micturition Office Visit 06/18/2017 11:00a [facility] Internal Gustavo Maldonado, E11.40 Type 2 diabetes Medicine - [employer] SPECIALIST mellitus with [place] diabetic neuropathy, unsp Z13.220 Encounter for screening for lipoid disorders F33.0 Major depressive disorder, recurrent, mild Office Visit 12/31/2016 11:00a Orthopedic Kael Keene M25.571 Pain in right Services Of Jinny Banerjee MD ankle and joints of right foot M76.61 Achilles tendinitis, right leg Office Visit 12/18/2016 11:00a [facility] Internal Khai Lam, M25.571 Pain in right Medicine - M.DSharif ankle and [place] joints of right foot E11.40 Type 2 diabetes mellitus with diabetic neuropathy, unsp Office Visit 12/16/2016 2:20p [facility] Noris Iqbal M25.571 Pain in right Infectious Tom Ruggiero ankle and Diseases joints of right foot Office Visit 11/23/2016 4:20p [facility] E11.40 Type 2 Infectious Tom Ruggiero diabetes Diseases mellitus with diabetic neuropathy, unsp R21 Rash and other nonspecific skin eruption Office Visit 11/06/2016 10:40a [facility] Internal Khai E11.621 Type 2 diabetes Milind Lam M.D. mellitus with [place] foot ulcer R52 Pain, unspecified J44.9 Chronic obstructive pulmonary disease, unspecified L97.411 Non-prs chr ulcer of right heel and midft lmt to brkdwn skin Z79.4 [facility] (current) use of insulin Office Visit 10/27/2016 11:55a Wound Care Mat Potter E11.621 Type 2 diabetes Center AT [facility] Tom Mckeon mellitus with foot ulcer L97.411 Non-prs chr ulcer of right heel and midft lmt to brkdwn skin L03.115 Cellulitis of right lower limb Office Visit 10/20/2016 11:20a [facility] Internal Khai J44.9 Chronic Medicine Ariella Lam M.D. obstructive [place] pulmonary disease, unspecified R09.02 Hypoxemia K40.40 Unil inguinal hernia, w gangrene, not specified as recurrent E11.8 Type 2 diabetes mellitus with unspecified complications E11.40 Type 2 diabetes mellitus with diabetic neuropathy, unsp Office Visit 10/15/2016 [facility] Xochitl Palmer, K56.69 Other intestinal 12:28p kika Shaffer M.D. obstruction Hospitalists E11.42 Type 2 diabetes mellitus with diabetic polyneuropathy Office Visit 10/14/2016 [facility] Xochitl E11.42 Type 2 diabetes 12:28p kika Shaffer M.D. mellitus with Hospitalists diabetic polyneuropathy K56.69 Other intestinal obstruction Office Visit 10/13/2016 [facility] Gale K56.69 Other intestinal 12:27p kika Shaffer NP obstruction Hospitalists E13.10 Oth diabetes mellitus with ketoacidosis without coma Office 10/12/2016 [facility] Serafin E11.42 Type 2 diabetes Visit 12:26p kika Shaffer PA mellitus with Hospitalists diabetic polyneuropathy K56.69 Other intestinal obstruction Office Visit 10/12/2016 Surgical Serjio S. K40.30 Unil inguinal 7:00a [facility] MD Keisha hernia, w obst, w/o gangr, not spcf as recur Office Visit 05/15/2015 [facility] Axel Mercado, 599.0 UTI Urinary 8:19a kika Shaffer M.D. Tract Infection Hospitalists Site Not Spec 250.02 Diabetes Mellitus W/O Compl Type II Or Unspec Type Uncontrol Plan of Treatment Future Appointment(s):12/08/2018 1:40 pm - Gustavo Maldonado NP at [facility] Internal Medicine [facility]11/24/[address] MDE11.621 Type 2 diabetes mellitus with foot ulcerFollow up:10-14 days with MSharifMarkerInstructions:1. Check blood glucose at least 4 times per day. 2. Return in 2 weeks or sooner if you are experiencing lows.
--- OUTSIDE RECORDS SUMMARY | 2018-12-08 00:07 | XMS REPORT | Continuity of Care Document ---
:1965 External Reference #:[id number] Author Name Nahomi Mckenna Care Team Providers Name Role Phone Zoya Patten MD Primary Care Physician Unavailable Payers Date Identification Numbers Payment Provider Subscriber Effective: 2016 Policy Number: [id number] [place] Number: [id number] [address] PayID: [id number] [place] [address] Expires: 2016 Policy Number: [id number] [employer] Lesly Garcia Meche PayID: [id number] [address] [address] TARIK Julio [address] Advance Directives Type Date Description Status Comment [...] Use Denies Drug Use Smoking Status Reviewed: 11/21/18 Patient is a former smoker Exercise Type/Frequency Exercises sporadically clean house Allergies, Adverse Reactions, Alerts Date Description Reaction Status Severity Comments 10/20/2016 Aspirin migraine w/ generic Active nausea 10/20/2016 Latex Active break out 10/16/2016 NKDA Inactive Medications Medication Date Status Form Strength Qnty SIG Indications Ordering Provider Basaglar 11/21/ Active Solution 100Unit/M 15ml 40 units Zavala Kwikpen 2019 Pen-Inject L twice daily MD Alma Rosa if pump fails Blood Pressure 11/21/ Active Kit 1unit Use to test Zavala Kit 2018 s blood MD Alma Rosa pressure 2-3 times a week or when have symptoms. Admelog 11/18/ Active Solution 100Unit/M 30ml For use in Zavala 2019 L pump MD Alma Rosa Oxygen 11/09/ Active Misc 2.5 liters Gustavo 2018 at night AYESHA Maldonado and prn Atorvastatin 09/01/ Active Tablets 40mg 90tab 40mg by Zavala Calcium 2017 s mouth MD Alma Rosa daily(Patie nt not taking) Nebulizer 08/15/ Active Device 1unit use for J44.9 Gustavo 2018 s albuterol AYESHA Maldonado nebulized solution up to 4 times a day. Nebulizer 08/15/ Active Kit QS for use 4 J44.9 Gustavo Kit/Tubing/Mout 2018 times daily AYESHA Maldonado hpiece as needed Ipratropium 08/15/ Active Solution 0.5-2.5(3 90uni 1 vial in J44.9 Gustavo [place]/Albuter 2017 )mg/3ML ts nebulizer AYESHA Maldonado ol Sulfate four times a day as needed for asthma Advair Diskus 08/15/ Active Aerosol 250-50mcg 60uni inhale 1 J44.9 Gustavo 2018 /Dose ts puff by AYESHA Maldonado mouth twice a day Pioglitazone 06/09/ Active Tablets 15mg 90tab take 15mg E11.65 Zavala HCL 2018 s once daily( MD Alma Rosa Patient Not Taking) Precision Xtra 06/09/ Active Strips 100un use 3 times E11.65 Zavala Blood Glucose 2018 its daily for MD Alma Rosa Test Strips glucose testing Precision Xtra 06/09/ Active Device 1unit use with E11.65 Zavala Monitor 2018 s glucose/ket MD Alma Rosa one strips Crutch Set 05/24/ Active Misc 1pair For use L03.116 Gustavo 2017 while AYESHA Maldonado ambulating Ventolin HFA 04/21/ Active Aerosol 108(90Bas 8unit 2 puffs by Gustavo 2018 e) s mouth four AYEHSA Maldonado mcg/Act times a day as needed Lyrica 12/15/ Active Capsules 75mg 60cap 1 by mouth E11.42 Gustavo 2018 s twice a day AYESHA Maldonado Cane 10/29/ Active Misc 1unit standard E11.42 Gustavo 2017 s adjustable AYESHA Maldonado height cane. Pen [place] 09/03/ Active Misc 31G X 5 100un use with Zavala 12/03" 2017 mm its lantus subq MD Alma Rosa everyday Unifine Pentips / Active Misc 31G X 5 Use With Unknown 0000 mm Lantus Once Daily Cipro / Active Tablets 500mg 1 by mouth Unknown 0000 twice a day Aspirin Adult / Active Tablets DR 81mg 1 by mouth Unknown Low Dose 0000 every day Humulin R U-500 / Active Solution 500Unit/M 30 units Zavala Kwikpen 0000 Pen-Inject L twice daily MD Alma Rosa if pump fails Lisinopril 11/21/ Hx Tablets 5mg 30tab 1 by mouth E11.65 Zavala 2019 - s every day MD Alma Rosa 2018 Lisinopril 11/18/ Hx Tablets 10mg Take by E11.65 Maddy 2018 - mouth daily Marker, 11/21/ RPA-C 2019 Amoxicillin/Cla 10/25/ Hx Tablets 875-125mg 20tab take one J01.90 Gustavo vulanate 2018 - s tablet q12 AYESHA Maldonado Potassium 11/04/ hours for 2019 10 days Fluconazole 08/15/ Hx Tablets 150mg 2tabs Take one B37.3 Gustavo 2017 - tablet by AYESHA Maldonado 11/09/ mouth once 2018 for vaginal yeast infection. If symptoms persist after three days take the second tablet. Humulin R U-500 07/19/ Hx Solution 500Unit/M 12ml 60 units Zavala Kwikpen 2018 - Pen-Inject L twice daily MD Alma Rosa 11/03/ before meal 2018 Fluconazole 07/11/ Hx Tablets 150mg 1tabs Take [...] s tablets AYESHA Maldonado 11/09/ every 8 2019 hours for pain. Apidra Solostar 05/13/ Hx Solution 100Unit/M 15ml [...] Gustavo Oxalate 2017 - s once daily AYESHA Maldonado 07/23/ for 1 week 2016 then increase to 1 tab daily. Basaglar 01/29/ Hx Solution 100Unit/M 30ml inject 50 E11.65 Gustavo Kwikpen 2017 - Pen-Inject L units AYESHA Maldonado 06/09/ daily, to 2017 increase by 10 units every day BS over 300. Cymbalta 12/18/ Hx Caps 30mg 60cap 2 tabs M25.571 Khai 2017 - Part s daily [place], M.D. 2017 Nystatin-Triamc 12/16/ Hx Ointment 565923-5. 30uni apply to M25.571 Yohan hartman 2017 - 1Unit/GM- ts affected D. 06/18/ % area twice [place], 2016 a day M.D. Ondansetron HCL 10/20/ [...] 10/20/ Hx Aerosol 250-50mcg 60uni 1 puff J44.Marlena Ridley 2017 - /Dose ts twice daily , M.D. 2017 Montelukast 10/20/ Hx Tablets 10mg 30tab once daily Beth44.9 Khai Sodium 2017 - s , M.D. 2017 Ventolin HFA 10/20/ Hx Aerosol 108(90Bas 8gm 2 puffs by J44.9 Khai 2017 - e) mouth four , 06/18/ mcg/Act times a day M.D. 2017 as needed Lantus Solostar / Hx Solution 100Unit/M 30ml 50 units E11.621 Alaina 0000 - Pen-Inject L daily Servin, M.D. 2017 Gabapentin / Hx Tablets 600mg 120ta 2 by mouth M25.571 Khai 0000 - bs 3 times a [place], 06/18/ day M.D. 2017 Cymbalta / Hx Caps 30mg 1 by mouth Khai 0000 - Part every day [place], M.D. 2017 Omeprazole / Hx Capsules 40mg once daily Sen 0000 - Jerel MD Elizalde Gabapentin 00/00/ Hx Tablets 600mg take one Unknown 0000 - tablet by 06/07/ mouth three 2018 times a day Doxycycline /00/ Hx Tablets 100mg 1 by mouth Unknown Hyclate 0000 - twice a day 06/08/ for 60 days 2017 Doxycycline 00/00/ Hx Capsules 100mg Take One Unknown Hyclate 0000 - Capsule By 06/26/ Mouth Twice 2018 A Day Lisinopril / Hx Tablets 20mg take 20 mg E11.65 Unknown 0000 - daily(patie 11/21/ nt only 2019 taking 10 mg daily - 11/09/18) Hydrocodone-Jass / Hx Tablets 5-325mg Take One Unknown taminophen 0000 - Tablet By 10/17/ Mouth Every 2019 8 Hours For Pain Maximum Daily Dose Three Tablets Novolog Mix / Hx Supn (70-30)10 Inject 50 Unknown 70/30 Prefilled 0000 - 0Unit/ML Units Twice Flexpen Daily 2018 Anoro Ellipta / Hx Aerosol 62.5-25mc Inhale One Unknown 0000 - g/Inh puff By 10/25/ Mouth Every 2019 Day Amitriptyline / Hx Tablets 25mg Take [...] Capsules By 11/09/ Mouth Every 2019 Day Immunizations Description No Information Available Vital Signs Date Vital Result Comment 11/21/2018 2:28pm Height 63 inches 5'3" Weight [...] Result H/L Range Note Laboratory test finding 11/21/2018 [facility] House Glucose Random 121 Hemoglobin A1c >14.0 High 5-7 Laboratory test 11/04/2018 [facility] Point of 404 mg/dL High 70-100 [address] [place] [address] [phone] Urine Culture And 11/04/2018 [facility] Urine SEE RESULT [address] [place] [address] [phone] Urinalysis Profile 11/04/2018 [facility] Urine Color Yellow [address] [place] [address] [phone] Urine Appearance Cloudy Urine Specific [place] 1.020 N 1.010-1.030 Urine pH 6.0 N [...] Cell Present Abnormal Absent Laboratory test 11/04/2018 [facility] C Reactive 3.62 mg/L N < 8.[address] [place] [address] [phone] Creatine Kinase(CK) 41 U/L N 10-223 Alcohol < 10 mg/dL N <10 Magnesium 1.8 mg/dL Low 1.9-2.7 Troponin-I (TnI) 0.00 ng/mL <0.04 3 TSH (Thyroid Stim Horm) 0.51 mcIU/mL N 0.34-5.60 Comp Metabolic Panel 11/04/2018 [facility] Sodium 136 mmol/L N 135-[address] [place] [address] [phone] Potassium 3.5 mmol/L N 3.5-5.0 Chloride 101 [...] Egfr Non- 69.6 >60 Egfr 84.2 >60 4 Venous Blood Gas 11/04/2018 [facility] Venous Blood pH 7.40 N 7.32-7.[address] [place] [address] [phone] Venous Pco2 44 mmHg N 41-51 Venous Po2 < 38.0 mmHg N 35-45 Venous O2 Saturation 65.6 % Low 70-80 Venous Blood Base Excess 2.0 mmol/L N 0.0-4.0 5 Venous Bicarbonate Hco3 25.6 mmol/L N 24-28 CBC Auto Diff 11/04/2018 [facility] White Blood 6.7 10^3/uL N 3.5-10.[address] [place] [address] [phone] Red Blood Count 4.45 10^6/uL N 4.00-5.40 [...] Blood Cells % 0 Laboratory test 11/04/2018 [facility] Lactic Acid 1.1 mmol/L N 0.5-2.0 [address] [place] [address] [phone] Laboratory test 11/04/2018 [facility] Rapid SEE RESULT [address] Influenza [place] [address] Antigen [phone] Rapid Influenza 11/04/2018 [facility] Influenza A NEGATIVE Negative 8 A & B Molecular [address] [place] [address] [phone] Influenza B Molecular NEGATIVE Negative Laboratory 11/04/2018 [facility] Point of Care 268 mg/dL High 70-100 9 test finding [address] [place] [address] [phone] Urine Drug SCR 11/04/2018 [facility] Amphetamine Ur None None ED & Pain [address] Screen [place] [address] [phone] Barbiturates Urine Screen None Detected None Detect Benzodiazepine Urine Screen None Detected None Detect Urine Cannabinoids Screen None Detected None Detect Urine Cocaine Screen None Detected None Detect Urine Opiates Screen None Detected None Detect Urine Phencyclidine Screen None Detected None Detect 10 Drug Abuse 20 10/25/2018 [facility] Urine Amphetamine Negative ng/mL [address] [place] [address] [phone] Urine Barbiturates Negative ng/mL 12 Urine Benzodiazepines Negative ng/mL 13 Urine Cocaine Negative ng/mL 14 Urine Phencyclidine Negative ng/mL Cutoff: 25 Urine Tetrahydrocannabinol Negative ng/mL Cutoff: 50 15 Creatinine, Urine 30.5 mg/dL Specific [place] 1.007 pH 5.3 Oxidants Negative 16 Adulterants Comment Normal Codeine, Ur Not Detected ng/mL Cutoff: 25 17 Pyqqlop-5-cube-glucuronide, Ur Not Detected ng/mL 18 Morphine, Ur Not Detected ng/mL Cutoff: 25 19 Cnrqejgq-6-syma-glucuronide, U Not Detected ng/mL 20 6-monoacetylmorphine, Ur Not Detected ng/mL Cutoff: 25 21 Hydrocodone, Ur Not Detected ng/mL Cutoff: 25 22 Norhydrocodone, Ur Not Detected ng/mL Cutoff: 25 23 Dihydrocodeine, Ur Not Detected ng/mL Cutoff: 25 24 Hydromorphone, Ur Not Detected ng/mL Cutoff: 25 25 Bnclyqytkwtni6hjbafsqxbtitkxz Not Detected ng/mL 26 Oxycodone, Ur Not Detected ng/mL Cutoff: 25 27 Noroxycodone, Ur Not Detected ng/mL Cutoff: 25 28 Oxymorphone, Ur Not Detected ng/mL Cutoff: 25 29 Mkxmrcqdbki-5-pzed-glucuronide Not Detected ng/mL 30 Noroxymorphone, Ur Not Detected ng/mL Cutoff: 25 31 Fentanyl, Ur Not Detected ng/mL Cutoff: 2 32 Norfentanyl, Ur Not Detected ng/mL Cutoff: 2 33 Meperidine, Ur Not Detected ng/mL Cutoff: 25 34 Normeperidine, Ur Not Detected ng/mL Cutoff: 25 35 Naloxone, Ur Not Detected ng/mL Cutoff: 25 36 Pijdarxy-5-gzau-glucuronide, U Not Detected ng/mL 37 Methadone, Ur [...] Ur Not Detected ng/mL Cutoff: 50 45 Hwnabpzuir-yglw-pvfrnwuscbq, U Not Detected ng/mL 46 Buprenorphine, Ur Not Detected ng/mL Cutoff: 5 47 Norbuprenorphine, Ur Not Detected ng/mL Cutoff: 5 48 Norbuprenorphine glucuronide Not Detected ng/mL Cutoff: 20 49 Opioid Interpretation See Comment 50 Wound 10/13/2018 [facility] Wound/Misc SEE RESULT 51 Culture/Sensi [address] Culture[place] [address] Stain [phone] Laboratory test 09/04/2018 [facility] Point of Care 63 mg/dL Low 70-1 [address] Glucose 00 [place], [place] [address] [phone] Urine Culture And 09/04/2018 [facility] Urine Culture SEE RESULT [address] BELOW [place], [place] [address] [phone] Laboratory test 09/04/2018 [facility] Blood Culture SEE RESULT [address] BELOW [place], [place] [address] [phone] Urinalysis Profile 09/04/2018 [facility] Urine Color Yellow [address] [place], [place] [address] [phone] Urine Appearance Cloudy Urine Specific [place] 1.021 N 1.010-1.030 Urine pH 5.0 N 5-9 Urine Urobilinogen Negative Negative Urine Ketones Negative Negative Urine Protein 2+(100 mg/dL) Abnormal Negative Urine Leukocytes Negative Negative Urine Blood Negative Negative * * Abnormal Negative 55 Urine Nitrite Negative Negative Urine Bilirubin Negative Negative Urine Glucose 3+(>=500 mg/dL) Abnormal Negative Urine White Blood Cell 1+(6-10/hpf) Abnormal Absent Urine Red Blood Cell Trace(0-2/hpf) Absent Urine Bacteria 1+ Abnormal Absent Urine Squamous Epithelial Cell Present Abnormal Absent Laboratory test 09/04/2018 [facility] Erythrocyte Sed 34 mm/Hr High 0-[address] [place] [address] [phone] Procalcitonin < 0.1 ng/mL <0.6 56 Rapid Influenza A B Antigen SEE RESULT BELOW 57 CBC Auto Diff 09/04/2018 [facility] White Blood 9.5 10^3/uL N 3.5-10.[address] [place] [address] [phone] Red Blood Count 4.72 10^6/uL N 4.00-5.40 [...] Blood Cells % 0.1 Laboratory test 09/04/2018 [facility] Partial 25.2 seconds Low 26.0-36.[address] [place] [address] PTT [phone] Fibrinogen 383.2 mg/dL N 110.8-404.3 Inr/Protime 09/04/2018 [facility] Inr 0.80 N 0.77-1.[address] [place] [address] [phone] Laboratory test 09/04/2018 [facility] Creatine 64 U/L N 10- [address] Kinase(CK) [place] [address] [phone] C Reactive Protein 3.76 mg/L N <8.01 Troponin-I (TnI) 0.00 ng/mL <0.04 58 Lactic Acid 3.1 mmol/L High 0.5-2.0 59 Comp Metabolic Panel 09/04/2018 [facility] Sodium 137 mmol/L N 135-[address] [place] [address] [phone] Potassium 3.2 mmol/L Low 3.5-5.0 Chloride 101 [...] Egfr 64.0 >60 60 Laboratory test 09/04/2018 [facility] B-Type 62 pg/mL <=[address] [place] [address] Peptide BNP [phone] Laboratory test 09/04/2018 [facility] Point of Care 87 mg/dL N 70-100 [address] [place] [address] [phone] Laboratory test 09/04/2018 [facility] Point of Care 84 mg/dL N 70-100 [address] [place] [address] [phone] Laboratory test 09/04/2018 [facility] Point of Care 226 mg/dL High 70-100 [address] [place] [address] [phone] Laboratory test 09/04/2018 [facility] Point of Care 214 mg/dL High 70-100 64 finding 101 [facility] [place] [place] [address] [phone] Laboratory test 07/18/2018 [facility] C-Peptide 2.2 ng/mL 1.1 - 4.4 65 finding 101 [place] [address] [phone] Insulin Level 28.9 mcIU/mL High 2.0-16.0 Glucose 476 mg/dL High 70-100 Laboratory test finding 07/11/2018 [facility] Hemoglobin A1c 13.4 High 5-7 Glucose Random 478 Ketones 0.3 Laboratory test 06/09/2018 [facility] Glucose Random 170 finding Laboratory test 05/26/2018 [facility] Point of Care > 444 High 70-100 66 finding 101 [facility] Glucose mg/[place] [address] [phone] Laboratory test 05/26/2018 [facility] C Reactive 8.76 mg/L High <8.01 finding 101 [facility] [place] [place] [address] [phone] Comp Metabolic 05/26/2018 [facility] Sodium 133 mmol/L Low 135 -145 Panel [address] [place] [address] [phone] Potassium 4.2 mmol/L N 3.5-5.0 Chloride 95 [...] 67 Glucose 667 mg/dL High 70-100 68 CBC Auto Diff 05/26/2018 [facility] White Blood 5.8 10^3/uL N 3.5-10.[address] [place] [address] [phone] Red Blood Count 4.41 10^6/uL N 4.00-5.40 [...] 0-2 Nucleated Red Blood Cells % 0.3 Urine Culture And 05/26/2018 [facility] Urine Culture SEE RESULT [address] [place] [address] [phone] Urinalysis Profile 05/26/2018 [facility] Urine Color Yellow [address] [place] [address] [phone] Urine Appearance Cloudy Urine Specific [place] 1.025 N 1.010-1.030 Urine pH 7.0 N [...] Urine Squamous Epithelial Cell Present Abnormal Absent Wound 05/24/2018 [facility] Wound/Misc SEE RESULT 70 Culture/Sensi [address] [place] [address] Stain [phone] Laboratory test 05/24/2018 [facility] Hemoglobin A1c >14 High 5-7 finding CBC Auto Diff 05/16/2018 [facility] White Blood 7.7 N 3.5- [address] Count 10^3/uL 10.8 [place] [address] [phone] Red Blood Count 4.26 10^6/uL N 4.00-5.40 [...] Blood Cells % 0.1 Urine Microalbumin 05/16/2018 [facility] Urine Creatinine 511.74 mg/dL Random [address] [place] [address] [phone] Ur Microalbumin (mg/L) 1196.9 Urine Microalbumin/Creatinine 233.8 High <31 Comp Metabolic Panel 05/16/2018 [facility] Sodium 139 mmol/L N 135-[address] [place] [address] [phone] Potassium 3.5 mmol/L N 3.5-5.0 Chloride 101 [...] Egfr Non- 37.6 >60 Egfr 45.5 >60 71 Lipid Profile 05/16/2018 [facility] Triglycerides 172 mg/dL 72 (Trig/Chol/HDL) [address] [place] [address] [phone] Cholesterol 194 mg/dL 73 HDL Cholesterol 57.3 mg/dL 74 LDL Cholesterol 102 mg/dL 75 Laboratory test 05/16/2018 [facility] Vitamin B12 538 pg/mL N 180-914 [address] [place] [address] [phone] Ua Routine 07/23/2017 [facility] Ua Specific 1.025 [place] Ua PH 5 Ua Color dark yellow Ua Appera cloudy Ua WBC positive Ua Protein 500 Ua Glucose 1000 Ua Ketones negative Ua Bilirubin small Ua Urobilinogen normal Ua Nitrite negative Ua Occult Blood 250 Urine Culture And 07/23/2017 [facility] Urine Culture SEE RESULT [address] [place] [address] [phone] Laboratory test 06/18/2017 [facility] Hemoglobin A1c 12.6 High 5-7 finding Laboratory test 12/18/2016 [facility] Hemoglobin A1c 14.0 High 5-7 finding Comp Metabolic 11/30/2016 [facility] Sodium 131 mmol/L Low 133 - Panel [address] [place] [address] [phone] Potassium 4.3 mmol/L N 3.5-5.0 Chloride 96 [...] 67.4 N >60 Egfr 86.7 N >60 78 Glucose 557 mg/dL High 70-100 Laboratory test 11/30/2016 [facility] C Reactive 2.40 mg/L N < 5.00 [address] [place] [address] [phone] 1 [employer]ator: [id number] 2 SEE RESULT BELOW Name: LESLY GILES : [address]: Ara Alvarez DO Acct: [id number] Unit: [id number] AGE: 53 Location: [facility] 332-01 Re11/05/18 SEX: F Status: ADM IN SPEC: [id number] ASHLEY: 11/04/[address]: Soraya MERCEDES REQ: [id number] RECD: 11/04/18 STATUS: CORAZON PIZANO DR: Zoya Patten MD _ SOURCE: URINE SPDESC: ORDERED: Urine Culture Procedure Result Reported Site Urine Culture Final 11/06/18- 0939 ML Organism 1 ESCHERICHIA COLI [place] Count >100,000 (Many) CFU/ML 1. ESCHERICHIA COLI [...] . END OF REPORT DEPARTMENT OF PATHOLOGY, [address] [place] [address] Renaldo Santos M.D. Director [facility] # [id number] 3 Troponin-I testing on Plasma Separator Tubes (PST) has a known false positive rate of 0.20-0.40%. All positive troponins reflex immediate secondary confirmatory testing. 4 Because ethnic data is not always readily [...] 15-29 5 Kidney failure <15 (or dialysis) 5 Reference ranges based on room air. 6 [facility] Severe Sepsis and Septic Shock Management Bundle Measure requires all lactic acids initially measuring >2.0 mmol/L be repeated. 7 SEE RESULT BELOW Name: LESLY GILES : [address]: Rohan Nathan MD Acct: [id number] Unit: [id number] AGE: 53 Location: ED Re11/04/18 SEX: F Status: PRE ER SPEC: [id number] ASHLEY: 11/04/[address]: Soraya MERCEDES REQ: [id number] RECD: 11/04/18 STATUS: CORAZON PIZANO DR: Zoya Nathan MD _ SOURCE: NASAL SPDESC: ORDERED: Flu A B Request Procedure Result Reported Site Rapid Influenza A B Request Final 11/04/181942 ML Specimen received for Influenza A/B Molecular testing * - Main Lab . END OF REPORT DEPARTMENT OF PATHOLOGY, [address] [place] [address] Renaldo Santos M.D. Director [facility] # [id number] [employer] Furnace Fabricator: [id number] Industrial Furnace Fabricator: [id number] 10 The urine specimen was tested at the listed cutoffs: Drug class test level (ng/mL) Amphetamines 500 Barbiturates 200 Benzodiazepine metabolites 200 Cocaine metabolites 150 Cannabinoids 50 Opiates 300 Pcp 25 Specimen was received without chain of custody. Results should be used for medical purposes only. 11 REFERENCE VALUE Cutoff: 500 12 REFERENCE [...] codeine REFERENCE VALUE Cutoff: 100 19 Laura Brink, MS Contin; Also a minor metabolite (10%) of codeine and can be seen in low concentrations (<2,000 ng/mL) with poppy seed ingestion. 20 Metabolite of morphine REFERENCE VALUE Cutoff: 100 21 Metabolite of heroin 22 Lortab, [place], Vicodin; Also a very minor metabolite of codeine and impurity (<1%) of oxycodone. 23 Metabolite of hydrocodone 24 Metabolite of hydrocodone 25 Dilaudid, Exalgo; Also a metabolite of hydrocodone [...] developed and its performance characteristics determined by [facility] in a manner consistent with CLIA requirements. This test has not been cleared or approved by the U.S. Food and Drug Administration. Test Performed by: [facility] [address] [place] [id number] SEE RESULT BELOW Name: LESLY GILES : [address]: Mat Mckeon MD Acct: [id number] Unit: [id number] AGE: 53 Location: WOUND Re10/13/18 SEX: F Status: REG REF SPEC: [id number] ASHLEY: 10/13/18-[address] [facility] [address]: Mat Mckeon MD REQ: [id number] RECD: 10/13/18 STATUS: CORAZON PIZANO DR: Gustavo Maldonado DIRECTOR OF INFORMATICS _ SOURCE: TOE [facility]: ORDERED: Culture Stain Procedure Result Reported Site [...] CONTINUED ON NEXT PAGE DEPARTMENT OF PATHOLOGY, [address] [place] [address] Renaldo Santos M.D. Director [facility] # [id number] Patient: LESLY GILES [id number] (Continued) Specimen: [id number] Collected: 10/13/18 Received: 10/13/18-1655 (Continued) Procedure Result Reported Site Wound/Misc Culture Final (continued) * These antibiotics are not available in the [facility] Formulary Contact the Microbiology Department for any additional antibiotic reporting. * - Main Lab . END OF REPORT DEPARTMENT OF PATHOLOGY, [address] [place] [address] Renaldo Santos M.D. Director [facility] # [id number] Industrial Furnace Fabricator: [id number] 53 SEE RESULT BELOW Name: LESLY GILES : [address]: Khai Lam MD Acct: [id number] Unit: [id number] AGE: 53 Location: [place] [address] Re09/04/18 SEX: F Status: ADM IN SPEC: [id number] ASHLEY: 09/05/[address]: Hailey Head MD REQ: [id number] RECD: 09/05/18 STATUS: CORAZON PIZANO DR: Gustavo Maldonado DIRECTOR OF INFORMATICS _ SOURCE: URINE SPDESC: ORDERED: Urine Culture Procedure Result Reported Site Urine Culture Final 09/06/18- 1010 ML Organism 1 STREP GROUP B [place] Count >100,000 (Many) CFU/ML Susceptibility testing of penicillins and other B-lactams approved by FDA for treatment of Streptococcus pyogenes (Group A Strep) and Streptococcus agalactiae (Group B Strep) is not necessary for clinical purposes and need not be done routinely, since as with vancomycin, resistant strains have not been recognized. (CLSI [id number];p.66) Positive isolates will be saved for one week. Please call the Microbiology Laboratory if further susceptibility testing is needed. * ML - Main Lab . END OF REPORT DEPARTMENT OF PATHOLOGY, [address] [place] [address] Renaldo Santos M.D. Director MAT[facility]W # [id number] 54 SEE RESULT BELOW Name: LESLY GILES : [address]: Emily Restrepo MD Acct: [id number] Unit: [id number] AGE: 53 Location: [place] [id number] Re09/04/18 Dis: 09/06/18 SEX: F Status: DIS IN SPEC: [id number] ASHLEY: 09/04/[address]: Hailey Head MD REQ: [id number] RECD: 09/04/18 STATUS: CORAZON PIZANO DR: Gustavo Maldonado DIRECTOR OF INFORMATICS _ SOURCE: BLOOD,VENO SPDESC: ORDERED: Blood Cult Procedure Result Reported Site Aerobic Culture Bottle Final 09/09/18- 1753 ML No Growth Day 5 Anaerobic Culture Bottle Final 09/09/18- 1751 ML No Growth Day 5 * ML - Main Lab . END OF REPORT DEPARTMENT OF PATHOLOGY, [address] [place] [address] Renaldo Santos M.D. Director [facility] # [id number] 55 *Ascorbic acid is present which may interfere with detection of blood. 56 Interpretive information available on [employer] Test Catalog at [email or web address] 57 SEE RESULT BELOW Name: LESLY GILES Jose : [address]: Khai Lam MD Acct: [id number] Unit: [id number] AGE: 53 Location: ICU [id number] Re09/04/18 SEX: F Status: ADM IN SPEC: [id number] ASHLEY: 09/04/[address]: Hailey Head MD REQ: [id number] RECD: 09/04/18 STATUS: COMP CHRISTIANOHR DR: Gustavo Maldonado DIRECTOR OF INFORMATICS _ SOURCE: NASAL SPDESC: ORDERED: Flu A B Request Procedure Result Reported Site Rapid Influenza A B Request Final 09/04/18- 2107 ML Specimen received for Influenza A/B Molecular testing * ML - Main Lab . END OF REPORT DEPARTMENT OF PATHOLOGY, [address] [place] [address] Renaldo Santos M.D. Director [facility] # [id number] 58 Troponin-I testing on Plasma Separator Tubes (PST) has a known false positive rate of 0.20-0.40%. All positive troponins reflex immediate secondary confirmatory testing. 59 Critical Result LACT:3.1 Called to [id number] at: 18:13:46 by:[id number] Read back by:MARK [facility] Severe Sepsis and Septic Shock Management Bundle Measure requires all lactic acids initially measuring >2.0 mmol/L be repeated. 60 Because ethnic data is not always [...] 5 Kidney failure <15 (or dialysis) 61 Industrial Furnace Fabricator: [id number] 62 Industrial Furnace Fabricator: [id number] 63 Industrial Furnace Fabricator: [id number] 64 Industrial Furnace Fabricator: [id number] 65 Test Performed by: [facility] [address] [email or web address] [address] 66 Industrial Furnace Fabricator: [id number] 67 Because ethnic data is not always [...] dialysis) 68 Critical Result GLU:667 Called to [id number] at: 11:07:06 by:[id number] Read back by:[id number] 69 SEE RESULT BELOW Name: LESLY GILES : [address]: Wilber Galarza DO Acct: [id number] Unit: [id number] AGE: 52 Location: ICU [id number] Re05/27/18 SEX: F Status: ADM IN SPEC: [id number] ASHLEY: 05/26/[address]: Oziel Frank MD REQ: [id number] RECD: 05/26/18 STATUS: CORAZON PIZANO DR: Gustavo Maldonado DIRECTOR OF INFORMATICS _ SOURCE: URINE SPDESC: ORDERED: Urine Culture Procedure Result Reported Site Urine Culture Final 05/28/18- 827 ML Organism 1 ESCHERICHIA COLI [place] Count >100,000 (Many) CFU/ML 1. ESCHERICHIA COLI [...] for any additional antibiotic reporting. * - [facility] Lab . END OF REPORT DEPARTMENT OF PATHOLOGY, [address] [place] [address] Renaldo Santos M.D. Director [facility] # [id number] 70 SEE RESULT BELOW Name: LESLY GILES : [address]: Gustavo Maldonado NP Acct: [id number] Unit: [id number] AGE: 52 Location: [facility] Re05/24/18 SEX: F Status: REG REF SPEC: [id number] ASHLEY: 05/24/18-[address] [facility] [address]: Gustavo Maldonado NP REQ: [id number] RECD: 05/24/18 STATUS: COMP _ SOURCE: TOE SPDESC: ORDERED: Culture Stain COMMENTS: [id number] Specimen Description Left great toe Procedure Result [...] CONTINUED ON NEXT PAGE DEPARTMENT OF PATHOLOGY, [address] [place] [address] Renaldo Santos M.D. Director [facility] # [id number] Patient: LESLY GILES [id number] (Continued) Specimen: [id number] Collected: 05/24/18-1254 Received: 05/24/18 (Continued) Procedure Result Reported Site Wound/Misc Culture Final (continued) 05/26/18- 100 1. STAPHYLOCOCCUS AUREUS (continued) M.I.C. RX --------- ------ Vancomycin <=0.5 S Imipenem-Deduced S * Ampicillin/Sulbactam-Deduced S Cefazolin-Deduced S * These antibiotics are not available in the [facility] Formulary Contact the Microbiology Department for any additional antibiotic reporting. * ML - [facility] Lab . END OF REPORT DEPARTMENT OF PATHOLOGY, [address] [place] [address] Renaldo Santos M.D. Director [facility] # [id number] 71 Because ethnic data is not always readily [...] 15-29 5 Kidney failure <15 (or dialysis) 72 Desirable: <150 Borderline High: 150-199 High: 200-499 Very High: >500 73 Desirable: <200 Borderline High: 200-239 High: >239 74 Low: <40 Desirable: 40-60 High: >60 75 Desirable: <100 Near Optimal: 100-129 Borderline High: 130-159 High: 160-189 Very High: >189 76 Normal Range 180 to 914 Indeterminate Range 145 to 180 Deficient Range <145 77 SEE RESULT BELOW Name: LESLY GILES : [address]: Gustavo Maldonado NP Acct: [id number] Unit: [id number] AGE: 52 Location: [facility] Re07/23/17 SEX: F Status: REG REF SPEC: [id number] ASHLEY: 07/23/17-[address]: Gustavo Maldonado NP REQ: [id number] RECD: 07/23/17 STATUS: COMP _ SOURCE: URINE SPDESC: ORDERED: Urine Culture COMMENTS: [id number] Urine Source: Random Procedure Result Reported Site Urine Culture Final 07/25/17- 0842 ML Organism 1 ESCHERICHIA COLI [place] Count >100,000 (Many) CFU/ML 1. ESCHERICHIA COLI [...] antibiotic reporting. * ML - MAIN LAB ([facility]) . END OF REPORT * ML=Testing performed at Main Lab DEPARTMENT OF PATHOLOGY, [address] [place] [address] Renaldo Santos M.D. Director [facility] # [id number] 78 Because ethnic data is not always readily [...] 15-29 5 Kidney failure <15 (or dialysis) 79 Acute inflammation: >10.00 Procedures Date Code Description Status 05/27/2018 66835 EEG Recording Awake & Asleep Completed 05/27/2018 72519 ECHO Transthorasic Realtime 2D W Doppler & Color Flow Completed Hosp 05/27/2018 28960 EKG, Interpretation Only Completed 05/27/2018 28931 Insert Non-Tunneled Venous Catether Completed 05/27/2018 75286 Endo-Trachial Tube Completed 05/16/2018 66604 Diffusing Capacity Completed 05/16/2018 77621 Plethysmography Determination Lung Volumes & Per Completed Airway Resist 05/16/2018 62437 Pulmonary Function><Bronchodil Completed 11/02/2017 700973704 Diabetic Retinal Eye Exam Completed 06/18/2017 [id number] Diabetic Retinal Eye Exam Completed 10/27/2016 58002 Removal Devitalization Tissue Wound Less Than Equal 20 Completed Square CM 10/12/2016 98204 EKG, Interpretation Only Completed 10/12/2016 52371 Repair Hernia Inguinal > 5Yrs, Incarcerated Or Completed Strangulated 10/12/2016 22254 Repair Hernia Inguinal > 5Yrs, Incarcerated Or Completed Strangulated Encounters Type Date Location Provider Dx Diagnosis Office Visit 11/08/2018 [facility] Piotr Brunner MD N39.0 Urinary tract 10:49a ,kika Hospitalists infection, site not specified B96.20 Unsp Escherichia coli as the cause of diseases classd elsr E11.621 Type 2 diabetes mellitus with foot ulcer L97.529 Non-pressure chronic ulcer oth prt left foot w unsp severity Office Visit 11/07/2018 10:49a [facility] Piotr Brunner, E11.65 Type 2 diabetes kika Shaffer MD mellitus with Hospitalists hyperglycemia B96.20 Unsp Escherichia coli as the cause of diseases classd [facility] N39.0 Urinary tract infection, site not specified E11.621 Type 2 diabetes mellitus with foot ulcer L97.529 Non-pressure chronic ulcer oth prt left foot w unsp severity Office Visit 11/06/2018 10:48a 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 Emily R33.9 Retention of kika Shaffer M.D. urine, Hospitalists unspecified R53.1 Weakness E11.69 Type 2 diabetes mellitus with other specified complication E11.621 Type 2 diabetes mellitus with foot ulcer L97.529 Non-pressure chronic ulcer oth prt left foot w unsp severity Office Visit 11/04/2018 [facility] Gale E11.65 Type 2 diabetes 10:47a kkia Shaffer NP mellitus with Hospitalists hyperglycemia R53.1 Weakness Office Visit 10/25/2018 11:40a [facility] Internal Gustavo Maldonado, J44.9 Chronic Medicine - DIRECTOR OF INFORMATICS obstructive [place] pulmonary disease, unspecified J01.90 Acute sinusitis, unspecified E11.42 Type 2 diabetes mellitus with diabetic polyneuropathy Office Visit 10/13/2018 12:45p Wound Care Mat Potter E11.621 Type 2 diabetes [facility] Tom Mckeon mellitus with foot ulcer E11.42 Type 2 diabetes mellitus with diabetic polyneuropathy M86.672 Other chronic osteomyelitis, left ankle and foot Office Visit 09/27/2018 [facility] [address], E11.65 Type 2 diabetes 4:00p Endocrinology of mellitus with Catering Staff Member hyperglycemia E11.649 Type 2 diabetes mellitus with hypoglycemia without coma Z79.4 assisted (current) use of insulin Office Visit 09/07/2018 [facility], L97.529 Non-pressure 2:30p Services Of chronic ulcer oth C.M.A. prt left foot w unsp severity Z79.4 assisted (current) use of insulin E11.621 Type 2 diabetes mellitus with foot ulcer E11.42 Type 2 diabetes mellitus with diabetic polyneuropathy M20.22 Hallux rigidus, left foot Office Visit 09/06/2018 [facility] Svetlana Bishop, E11.649 Type 2 diabetes 9:57a Asskika singer N.P. mellitus with Hospitalists hypoglycemia without coma G93.41 Metabolic encephalopathy E11.621 Type 2 diabetes mellitus with foot ulcer L97.529 Non-pressure chronic ulcer oth prt left foot w unsp severity Office Visit 09/06/2018 [facility] [address], E11.649 Type 2 diabetes 10:32a Endocrinology of MD mellitus with [facility] hypoglycemia without coma Z79.4 assisted (current) use of insulin E11.621 Type 2 diabetes mellitus with foot ulcer L97.529 Non-pressure chronic ulcer oth prt left foot w unsp severity Office Visit 09/05/2018 2:14p [facility] Yohan Iqbal E10.40 Type 1 diabetes For Infectious Tom Ruggiero mellitus with Diseases diabetic neuropathy, unsp E10.621 Type 1 diabetes mellitus with foot ulcer L97.529 Non-pressure chronic ulcer oth prt left foot w unsp severity T84.89xA [facility] comp of internal orthopedic prosth dev/basilio, init Office Visit 09/05/2018 [facility] Svetlana Bishop, E11.649 Type 2 diabetes 9:57a Assoc,pc N.P. 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 Eda E11.649 Type 2 diabetes 9:57a Assoc,pc AYESHA Rincon mellitus with Hospitalists hypoglycemia without coma N17.9 Acute kidney failure, unspecified L97.529 Non-pressure chronic ulcer oth prt left foot w unsp severity E11.621 Type 2 diabetes mellitus with foot ulcer E86.0 Dehydration E87.2 Acidosis E87.6 Hypokalemia Office Visit 09/01/2018 1:40p [facility] [address], Z79.4 assisted Endocrinology of Addi MARIE (current) use of insulin E11.65 Type 2 diabetes mellitus with hyperglycemia B37.3 Candidiasis of vulva and vagina E78.5 Hyperlipidemia, unspecified R35.8 Other polyuria Office Visit 08/15/2018 10:40a [facility] Internal Gustavo Erica, J44.9 Chronic Medicine - DIRECTOR OF INFORMATICS obstructive [place] pulmonary disease, unspecified S91.102S Unsp opn wnd left great toe w/o damage to nail, sequela B37.3 Candidiasis of vulva and vagina Office Visit 07/11/2018 [facility] [address], E11.65 Type 2 diabetes 10:40a Endocrinology of MD mellitus with Catering Staff Member hyperglycemia B37.3 Candidiasis of vulva and vagina Office Visit 06/09/2018 [facility] [address], E11.65 Type 2 diabetes 2:00p Endocrinology of MD mellitus with Catering Staff Member hyperglycemia E78.5 Hyperlipidemia, unspecified Office Visit 06/07/2018 10:40a [facility] Internal Gustavo Erica, S91.102S Unsp opn wnd Medicine - DIRECTOR OF INFORMATICS left great toe [place] w/o damage to nail, sequela J44.9 Chronic obstructive pulmonary disease, unspecified E11.42 Type 2 diabetes mellitus with diabetic polyneuropathy I10 Essential (primary) hypertension E78.5 Hyperlipidemia, unspecified Office Visit 05/31/2018 [facility] Xochitl E11.65 Type 2 diabetes 11:03a Assoc,kika Palmer M.D. mellitus with Hospitalists hyperglycemia E11.621 Type 2 diabetes mellitus with foot ulcer L97.529 Non-pressure chronic ulcer oth prt left foot w unsp severity E11.641 Type 2 diabetes mellitus with hypoglycemia with coma N39.0 Urinary tract infection, site not specified B96.20 Unsp Escherichia coli as the cause of diseases classd elswhr Office Visit 05/31/2018 9:24a [facility] Yohan Iqbal E11.621 Type 2 Infectious Tom Ruggiero diabetes Diseases mellitus with foot ulcer L97.521 Non-prs chronic ulcer oth prt l foot limited to brkdwn skin L03.115 Cellulitis of right lower limb E11.65 Type 2 diabetes mellitus with hyperglycemia Office Visit 05/30/2018 11:03a [facility] Xochitl Palmer, E11.621 Type 2 Assockika M.D. diabetes Hospitalists mellitus with foot ulcer L97.529 Non-pressure chronic ulcer oth prt left foot w unsp severity N39.0 Urinary tract infection, site not specified B96.20 Unsp Escherichia coli as the cause of diseases classd elswhr Office Visit 05/29/2018 11:02a 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 (current) use Hospitalists of insulin E11.641 Type 2 diabetes mellitus with hypoglycemia with coma E11.621 Type 2 diabetes mellitus with foot ulcer L97.529 Non-pressure chronic ulcer oth prt left foot w unsp severity N39.0 Urinary tract infection, site not specified B96.20 Unsp Escherichia coli as the cause of diseases classd elswhr Office Visit 05/28/2018 11:02a Intensivists Wilber Galarza J96.00 Acute respiratory DO failure, unsp w [...] specified Office Visit 05/27/2018 11:02a Intensivists Wilber Galarza J96.00 Acute respiratory DO failure, unsp w hypoxia or hypercapnia E11.641 Type 2 diabetes mellitus with hypoglycemia with coma N17.9 Acute kidney failure, unspecified I95.9 Hypotension, unspecified R00.1 Bradycardia, unspecified Office Visit 05/27/2018 [facility] Danny Benson R40.20 Unspecified coma 11:01a Assoc,kika LAWRENCE M.D. Hospitalists J96.00 Acute respiratory failure, unsp w hypoxia or hypercapnia R00.1 Bradycardia, unspecified I95.9 Hypotension, unspecified R29.2 Abnormal reflex Office 05/27/2018 [facility] Yoly G93.40 Encephalopathy, Visit 7:00a Sommer Chanel MD unspecified Office 05/26/2018 [facility] Kandis E11.65 Type 2 diabetes Visit 11:01a Assoc,pc Hospitalists Jsoe Alberto DIRECTOR OF INFORMATICS mellitus with hyperglycemia L97.429 Non-prs chronic ulcer of left heel and midfoot w unsp severt E11.621 Type 2 diabetes mellitus with foot ulcer N39.0 Urinary tract infection, site not specified I10 Essential (primary) hypertension Office Visit 05/24/2018 11:40a [employer]atering Staff Member Internal Gustavo Erica, Z79.84 dedicated intermodal truck driver ( current) Medicine - DIRECTOR OF INFORMATICS use of oral [place] hypoglycemic drugs E11.42 Type 2 diabetes mellitus with diabetic polyneuropathy L03.116 Cellulitis of left lower limb S91.102S Unsp opn wnd left great toe w/o damage to nail, sequela Office Visit 04/21/2018 10:20a [facility] Internal Gustavo Maldonado, E11.42 Type 2 diabetes Medicine - DIRECTOR OF INFORMATICS mellitus with [place] diabetic polyneuropathy I10 Essential (primary) hypertension R09.02 Hypoxemia B85.2 Pediculosis, unspecified Office Visit 01/17/2018 2:00p [facility] Internal Gustavo Maldonado, E11.42 Type 2 diabetes Medicine - DIRECTOR OF INFORMATICS mellitus with [place] diabetic polyneuropathy F33.0 Major depressive disorder, recurrent, mild I10 Essential (primary) hypertension Office Visit 12/15/2017 4:00p [facility] Internal Gustavo Maldonado, E11.42 Type 2 diabetes Medicine - DIRECTOR OF INFORMATICS mellitus with [place] diabetic polyneuropathy M79.672 Pain in left foot I10 Essential (primary) hypertension Office Visit 10/29/2017 9:00a [facility] Internal Gustavo Maldonado, E11.42 Type 2 diabetes Medicine - DIRECTOR OF INFORMATICS mellitus with [place] diabetic polyneuropathy F33.0 Major depressive disorder, recurrent, mild B85.0 Pediculosis due to Pediculus humanus capitis Office Visit 09/03/2017 1:40p [facility] Internal Gustavo Maldonado, E11.42 Type 2 diabetes Medicine - DIRECTOR OF INFORMATICS mellitus with [place] diabetic polyneuropathy R19.7 Diarrhea, unspecified Office Visit 07/23/2017 2:00p [facility] Internal Gustavo Maldonado, F33.0 Major depressive Medicine - DIRECTOR OF INFORMATICS disorder, [place] recurrent, mild F41.9 Anxiety disorder, unspecified R35.0 Frequency of micturition Office Visit 06/18/2017 11:00a [facility] Internal Gustavo Maldonado, E11.40 Type 2 diabetes Medicine - DIRECTOR OF INFORMATICS mellitus with [place] diabetic neuropathy, unsp Z13.220 Encounter for screening for lipoid disorders F33.0 Major depressive disorder, recurrent, mild Office Visit 12/31/2016 11:00a Orthopedic Kael Keene M25.571 Pain in right Services Of Jinny Banerjee MD ankle and joints of right foot M76.61 Achilles tendinitis, right leg Office Visit 12/18/2016 11:00a [facility] Internal Khai Lam, M25.571 Pain in right Medicine - M.DSharif ankle and [place] joints of right foot E11.40 Type 2 diabetes mellitus with diabetic neuropathy, unsp Office Visit 12/16/2016 2:20p [facility] Teresa Iqbal M25.571 Pain in right Infectious Tom Ruggiero ankle and Diseases joints of right foot Office Visit 11/23/2016 4:20p [facility] Teresa Iqbal E11.40 Type 2 Infectious Tom Ruggiero diabetes Diseases mellitus with diabetic neuropathy, unsp R21 Rash and other nonspecific skin eruption Office Visit 11/06/2016 10:40a [facility] Internal Khai E11.621 Type 2 diabetes [facility] Ariella Lam M.D. 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 obstructive [place] pulmonary disease, unspecified R09.02 Hypoxemia K40.40 Unil inguinal hernia, w gangrene, not specified as recurrent E11.8 Type 2 diabetes mellitus with unspecified complications E11.40 Type 2 diabetes mellitus with diabetic neuropathy, unsp Office Visit 10/15/2016 [facility] Xochitl Palmer, K56.69 Other intestinal 12:28p kika Shaffer M.D. obstruction Hospitalists E11.42 Type 2 diabetes mellitus with diabetic polyneuropathy Office Visit 10/14/2016 [facility] Xochitl E11.42 Type 2 diabetes 12:28p kika Shaffer M.D. mellitus with Hospitalists diabetic polyneuropathy K56.69 Other intestinal obstruction Office Visit 10/13/2016 [facility] Gale K56.69 Other intestinal 12:27p Assockika, DIRECTOR OF INFORMATICS obstruction Hospitalists E13.10 Oth diabetes mellitus with ketoacidosis without coma Office 10/12/2016 [facility] Serafin E11.42 Type 2 diabetes Visit 12:26p kika Shaffer PA mellitus with Hospitalists diabetic polyneuropathy K56.69 Other intestinal obstruction Office Visit 10/12/2016 Surgical Serjio S. K40.30 Unil inguinal 7:00a [facility] MD Keisha hernia, w obst, w/o gangr, not spcf as recur Office Visit 05/15/2015 [facility] Axel Mercado, 599.0 UTI Urinary 8:19a kika Shaffer MSharifDSharif Tract Infection Hospitalists Site Not Spec 250.02 Diabetes Mellitus W/O Compl Type II Or Unspec Type Uncontrol Plan of Treatment Future Appointment(s):11/22/2018 11:20 am - [facility] MD at [place]12/05/2018 11:30 am - Maddy Thomas RPA-Gregory at [place] [facility]11/24/2018 10:20 am - Gustavo Maldonado NP at [facility] Internal Medicine [facility]11/21/2018 - Maddy Thomas, PARRISH-CE11.621 Type 2 diabetes mellitus with foot ulcerFollow up:2 mshiyZ70.1 Orthostatic hypotension
--- OUTSIDE RECORDS SUMMARY | 2018-12-08 00:07 | XMS REPORT | Continuity of Care Document ---
:1965 External Reference #:[id number] Author Name Eufemia Zaragoza Care Team Providers Name Role Phone Zoya Patten MD Primary Care Physician Unavailable Payers Date Identification Numbers Payment Provider Subscriber Effective: 2016 Policy Number: [id number] Carrollghassan Garcia Meche Group Number: [id number] [address] PayID: [id number] [place] [address] Expires: 2016 Policy Number: [id number] [employer] Lesly Garcia Meche PayID: [id number] [address] [address] TARIK Julio [address] Advance Directives Type Date Description Status Comment [...] Oxygen 11/09/ Active Misc 2.5 liters Gustavo 2019 at night AYESHA Maldonado and prn Atorvastatin [...] 0.5-2.5(3 90uni 1 vial in J44.9 Gustavo Stanton/Albuter 2017 )mg/3ML ts nebulizer AYESHA Maldonado ol [...] s twice a day AYESHA Maldonado Pen [place] 09/03/ Active Misc 31G X 5 100un [...] Aerosol 250-50mcg 60uni inhale 1 J44.9 Gustavo 2017 - /Dose ts puff by AYESHA Maldonado [...] 11/09/ every 8 2019 hours for pain. Crutch Set 05/24/ Hx [...] Oxalate 2017 - s once daily Erica, MARKET RESEARCH MANAGER 07/23/ for 1 week 2017 then increase to 1 tab daily. Basaglar 01/29/ Hx Solution 100Unit/M 30ml inject 50 E11.65 Gustavo Kwikpen 2017 - Pen-Inject L units Erica, MARKET RESEARCH MANAGER 06/09/ daily, to 2018 increase by 10 units every day BS over 300. Cymbalta 12/18/ Hx Caps DR 30mg 60cap 2 tabs M25.571 Khai 2017 - Part s daily , 06/18/ M.D. 2017 Nystatin-Triamc 12/16/ Hx Ointment 804261-1. 30uni apply to M25.571 Yohan minnie 2017 - 1Unit/GM- ts affected D. 06/18/ % area twice [facility], 2017 a day M.D. Ondansetron HCL 10/20/ [...] daily Leif Ridley Sodium 2017 - s Zoar, 06/18/ M.D. 2017 Ventolin HFA 10/20/ Hx [...] Khai 0000 - bs 3 times a Zoar, day M.D. 2016 Cymbalta / Hx Caps DR 30mg 1 by mouth Khai 0000 - Part every day Genaro, 12/18/ M.D. 2016 Omeprazole / Hx Capsules DR 40mg once daily Sen 0000 Ariella Beltrán, 06/18/ 2016 Gabapentin / Hx Tablets 600mg [...] By 11/09/ Mouth Every 2019 Day Cipro 00/ Hx Tablets 500mg 1 by mouth Unknown 0000 - twice a day 2018 Immunizations Description No Information Available Vital Signs Date Vital Result Comment 11/24/2018 10:48am Height 63 inches 5'3" Weight [...] H/L Range Note Laboratory test finding 11/21/2018 [facility] Glucose Random 121 Hemoglobin A1c >14.0 High 5-7 Urine Drug 11/04/2018 [facility] Amphetamine Ur None Detected None Detect SCR ED & [address] [place] [address] [phone] Barbiturates Urine Screen None Detected None Detect Benzodiazepine Urine Screen None Detected None Detect Urine Cannabinoids Screen None Detected None Detect Urine Cocaine Screen None Detected None Detect Urine Opiates Screen None Detected None Detect Urine Phencyclidine Screen None Detected None Detect 1 Laboratory test 11/04/2018 [facility] Point of Care 268 mg/dL High 70-100 [address] Glucose [place], [place] [address] [phone] Rapid Influenza 11/04/2018 [facility] Influenza A NEGATIVE Negative 3 A & B Molecular [address] Molecular [place], [place] [address] [phone] Influenza B Molecular NEGATIVE Negative Laboratory test 11/04/2018 [facility] Rapid Influenza SEE RESULT [address] A B Antigen BELOW [place], [place] 12[address]28 [phone] Laboratory test 11/04/2018 [facility] Point of Care 404 mg/dL High 70-10 [address] Glucose 0 [place], [place] [address] [phone] Laboratory test 11/04/2018 [facility] Lactic Acid 1.1 mmol/L N 0.5-2 [address]0 [place], [place] [address] [phone] CBC Auto Diff 11/04/2018 [facility] White Blood 6.7 10^3/uL N 3.5-[address] Count 0.8 [place], [place] [address] [phone] Red Blood Count 4.45 10^6/uL N 4.00-5.40 [...] Cells % 0 Venous Blood Gas 11/04/2018 [facility] Venous Blood pH 7.40 N 7.32-7.[address] [place] [address] [phone] Venous Pco2 44 mmHg N 41-51 Venous Po2 < 38.0 mmHg N 35-45 Venous O2 Saturation 65.6 % Low 70-80 Venous Blood Base Excess 2.0 mmol/L N 0.0-4.0 7 Venous Bicarbonate Hco3 25.6 mmol/L N 24-28 Comp Metabolic Panel 11/04/2018 [facility] Sodium 136 mmol/L N 135-[address] [place] [address] [phone] Potassium 3.5 mmol/L N 3.5-5.0 Chloride 101 [...] Egfr Non- 69.6 >60 Egfr 84.2 >60 8 Laboratory test 11/04/2018 [facility] C Reactive 3.62 mg/L N < 8.[address] [place] [address] [phone] Creatine Kinase(CK) 41 U/L N 10-223 Alcohol < 10 mg/dL N <10 Magnesium 1.8 mg/dL Low 1.9-2.7 Troponin-I (TnI) 0.00 ng/mL <0.04 9 TSH (Thyroid Stim Horm) 0.51 mcIU/mL N 0.34-5.60 Urine Culture And 11/04/2018 [facility] Urine Culture SEE RESULT [address] [place] [address] [phone] Urinalysis Profile 11/04/2018 [facility] Urine Color Yellow [address] [place] [address] [phone] Urine Appearance Cloudy Urine Specific [place] 1.020 N 1.010-1.030 Urine pH 6.0 N [...] Urine Squamous Epithelial Cell Present Abnormal Absent Drug Abuse 20 10/25/2018 [facility] Urine Amphetamine Negative ng/mL [address] [place] [address] [phone] Urine Barbiturates Negative ng/mL 12 Urine Benzodiazepines Negative ng/mL 13 Urine Cocaine Negative ng/mL 14 Urine Phencyclidine Negative ng/mL Cutoff: 25 Urine Tetrahydrocannabinol Negative ng/mL Cutoff: 50 15 Creatinine, Urine 30.5 mg/dL Specific [place] 1.007 pH 5.3 Oxidants Negative 16 Adulterants Comment Normal Codeine, Ur Not Detected ng/mL Cutoff: 25 17 Qofmqlf-4-ejag-glucuronide, Ur Not Detected ng/mL 18 Morphine, Ur Not Detected ng/mL Cutoff: 25 19 Qqamjssw-3-oewl-glucuronide, U Not Detected ng/mL 20 6-monoacetylmorphine, Ur Not Detected ng/mL Cutoff: 25 21 Hydrocodone, Ur Not Detected ng/mL Cutoff: 25 22 Norhydrocodone, Ur Not Detected ng/mL Cutoff: 25 23 Dihydrocodeine, Ur Not Detected ng/mL Cutoff: 25 24 Hydromorphone, Ur Not Detected ng/mL Cutoff: 25 25 Rktbswlxhputi7bwjevdytquuwvpf Not Detected ng/mL 26 Oxycodone, Ur Not Detected ng/mL Cutoff: 25 27 Noroxycodone, Ur Not Detected ng/mL Cutoff: 25 28 Oxymorphone, Ur Not Detected ng/mL Cutoff: 25 29 Sfwytlhwzss-1-qgyw-glucuronide Not Detected ng/mL 30 Noroxymorphone, Ur Not Detected ng/mL Cutoff: 25 31 Fentanyl, Ur Not Detected ng/mL Cutoff: 2 32 Norfentanyl, Ur Not Detected ng/mL Cutoff: 2 33 Meperidine, Ur Not Detected ng/mL Cutoff: 25 34 Normeperidine, Ur Not Detected ng/mL Cutoff: 25 35 Naloxone, Ur Not Detected ng/mL Cutoff: 25 36 Oaaivfib-7-rhhc-glucuronide, U Not Detected ng/mL 37 Methadone, Ur [...] Ur Not Detected ng/mL Cutoff: 50 45 Kefkiaiddn-xkcv-ajmskuqcqjo, U Not Detected ng/mL 46 Buprenorphine, Ur Not Detected ng/mL Cutoff: 5 47 Norbuprenorphine, Ur Not Detected ng/mL Cutoff: 5 48 Norbuprenorphine glucuronide Not Detected ng/mL Cutoff: 20 49 Opioid Interpretation See Comment 50 Wound 10/13/2018 [facility] Wound/Misc SEE RESULT 51 Culture/Sensi [address] [place] [address] Stain [phone] Laboratory test 09/04/2018 [facility] Point of Care 214 mg/dL High 70-1 [address] Glucose 00 [place], [place] [address] [phone] Laboratory test 09/04/2018 [facility] Point of Care 63 mg/dL Low 70-1 [address] Glucose 00 [place] [address] [phone] Urine Culture And 09/04/2018 [facility] Urine Culture SEE RESULT [address] BELOW [place], [place] [address] [phone] Laboratory test 09/04/2018 [facility] Blood Culture SEE RESULT [address] [place] [address] [phone] Urinalysis Profile 09/04/2018 [facility] Urine Color Yellow [address] [place] [address] [phone] Urine Appearance Cloudy Urine Specific [place] 1.021 N 1.010-1.030 Urine pH 5.0 N [...] Cell Present Abnormal Absent Laboratory test 09/04/2018 [facility] Point of Care 226 mg/dL High 70-100 [address] Glucose [place], [place] [address] [phone] Laboratory test 09/04/2018 [facility] Point of Care 84 mg/dL N 70-100 [address] [place] [address] [phone] Laboratory test 09/04/2018 [facility] Point of Care 87 mg/dL N 70-100 [address] [place] [address] [phone] Laboratory test 09/04/2018 [facility] B-Type 62 pg/mL <=[address] [place] [address] Peptide BNP [phone] Comp Metabolic 09/04/2018 [facility] Sodium 137 N 135-[address] mmol/[place] [address] [phone] Potassium 3.2 mmol/L Low 3.5-5.0 Chloride 101 [...] Egfr 64.0 >60 60 Laboratory test 09/04/2018 [facility] Creatine 64 U/L N 10- [address] Kinase(CK) [place] [address] [phone] C Reactive Protein 3.76 mg/L N <8.01 Troponin-I (TnI) 0.00 ng/mL <0.04 61 Lactic Acid 3.1 mmol/L High 0.5-2.0 62 Laboratory test 09/04/2018 [facility] Erythrocyte Sed 34 mm/Hr High 0-[address] [place] [address] [phone] Procalcitonin < 0.1 ng/mL <0.6 63 Rapid Influenza A B Antigen SEE RESULT BELOW 64 CBC Auto Diff 09/04/2018 [facility] White Blood 9.5 10^3/uL N 3.5-10.[address] [place] [address] [phone] Red Blood Count 4.72 10^6/uL N 4.00-5.40 [...] Blood Cells % 0.1 Laboratory test 09/04/2018 [facility] Partial 25.2 seconds Low 26.0-36.3 finding 101 [facility] [place] [address] PTT [phone] Fibrinogen 383.2 mg/dL N 110.8-404.3 Inr/Protime 09/04/2018 [facility] Inr 0.80 N 0.77-1.02 [address] [place] [address] [phone] Laboratory test 07/18/2018 [facility] C-Peptide 2.2 ng/mL 1.1 - 4.4 [address] [place] [address] [phone] Insulin Level 28.9 mcIU/mL High 2.0-16.0 Glucose 476 mg/dL High 70-100 Laboratory test finding 07/11/2018 [facility] [address] [facility] In House Hemoglobin A1c 13.4 High 5-7 Glucose Random 478 Ketones 0.3 Laboratory test finding 06/09/2018 [facility] [address] In House Glucose Random 170 Urinalysis Profile 05/26/2018 [facility] Urine Color Yellow [address] [place] [address] [phone] Urine Appearance Cloudy Urine Specific [place] 1.025 N 1.010-1.030 Urine pH 7.0 N [...] Present Abnormal Absent Urine Culture And 05/26/2018 [facility] Urine Culture SEE RESULT [address] [place] [address] [phone] CBC Auto Diff 05/26/2018 [facility] White Blood 5.8 10^3/uL N 3.5-[address] Count 0.8 [place] [address] [phone] Red Blood Count 4.41 10^6/uL N 4.00-5.40 [...] Cells % 0.3 Comp Metabolic Panel 05/26/2018 [facility] Sodium 133 mmol/L Low 135-[address] [place] [address] [phone] Potassium 4.2 mmol/L N 3.5-5.0 Chloride 95 [...] 667 mg/dL High 70-100 68 Laboratory 05/26/2018 [facility] C Reactive 8.76 mg/L High < 8.01 test finding [address] Protein [place], [place] [address] [phone] Laboratory 05/26/2018 [facility] Point of Care > 444 High 70- 100 69 test finding [address] Glucose mg/dL [place], [place] [address] [phone] Wound 05/24/2018 [facility] Wound/Misc SEE 70 Culture/Sensi [address] [place] [address] Stain BELOW [phone] Laboratory 05/24/2018 [facility] Hemoglobin A1c >14 High 5-7 test finding Laboratory 05/16/2018 [facility] Vitamin B12 538 pg/mL N 180- 914 71 test finding [address] [place], [place] [address] [phone] Lipid Profile 05/16/2018 [facility] Triglycerides 172 mg/dL 72 (Trig/Chol/HDL [address] ) [place], [place] [address] [phone] Cholesterol 194 mg/dL 73 HDL Cholesterol 57.3 mg/dL 74 LDL Cholesterol 102 mg/dL 75 Comp Metabolic Panel 05/16/2018 [facility] Sodium 139 mmol/L N 135-[address] [place] [address] [phone] Potassium 3.5 mmol/L N 3.5-5.0 Chloride 101 [...] Egfr 45.5 >60 76 Urine Microalbumin 05/16/2018 [facility] Urine Creatinine 511.74 mg/dL Random [address] [place] [address] [phone] Ur Microalbumin (mg/L) 1196.9 Urine Microalbumin/Creatinine 233.8 High <31 CBC Auto Diff 05/16/2018 [facility] White Blood 7.7 10^3/uL N 3.5-10.[address] [place] [address] [phone] Red Blood Count 4.26 10^6/uL N 4.00-5.40 [...] Cells % 0.1 Urine Culture And 07/23/2017 [facility] Urine Culture SEE RESULT [address] [place] [address] [phone] Ua Routine 07/23/2017 [facility] Ua Specific 1.025 [place] Ua PH 5 Ua Color dark yellow Ua Appera cloudy Ua WBC positive Ua Protein 500 Ua Glucose 1000 Ua Ketones negative Ua Bilirubin small Ua Urobilinogen normal Ua Nitrite negative Ua Occult Blood 250 Laboratory test 06/18/2017 [facility] Hemoglobin A1c 12.6 High 5-7 finding Laboratory test 12/18/2016 [facility] Hemoglobin A1c 14.0 High 5-7 finding Laboratory test 11/30/2016 [facility] C Reactive 2.40 mg/L N < 5.00 [address] [place] [address] [phone] Comp Metabolic 11/30/2016 [facility] Sodium 131 mmol/L Low 133 -[address] [place] [address] [phone] Potassium 4.3 mmol/L N 3.5-5.0 Chloride 96 [...] be used for medical purposes only. 2 Fine Wire Drawer: [id number] 3 Fine Wire Drawer: [id number] 4 SEE RESULT BELOW Name: LESLY GILES Jose : [address]: Rohan Nathan MD Acct: [id number] Unit: [id number] AGE: 53 Location: ED Re11/04/18 SEX: F Status: PRE ER SPEC: [id number] ASHLEY: 11/04/[address]: Soraya MERCEDES REQ: [id number] RECD: 11/04/18 STATUS: CORAZON PIZANO DR: Zoya Nathan MD _ SOURCE: NASAL SPDESC: ORDERED: Flu A B Request Procedure Result Reported Site Rapid Influenza A B Request Final 11/04/18- 1942 ML Specimen received for Influenza A/B Molecular testing * ML - Main Lab . END OF REPORT DEPARTMENT OF PATHOLOGY, [address] [place] [address] Renaldo Santos M.D. Director [facility] # [id number] 5 Fine Wire Drawer: [id number] 6 [facility] Severe Sepsis and Septic Shock Management Bundle Measure requires all lactic acids initially measuring >2.0 mmol/L be repeated. 7 Reference ranges based on room air. 8 Because ethnic data is not always [...] 5 Kidney failure <15 (or dialysis) 9 Troponin-I testing on Plasma Separator Tubes (PST) has a known false positive rate of 0.20-0.40%. All positive troponins reflex immediate secondary confirmatory testing. 10 SEE RESULT BELOW Name: KARLAHANNAHLESLY Jose : [address]: Ara Alvarez DO Acct: [id number] Unit: [id number] AGE: 53 Location: [place] [address] Re11/05/18 SEX: F Status: ADM IN SPEC: [id number] ASHLEY: 11/04/[address]: Soraya MERCEDES REQ: [id number] RECD: 11/04/18 STATUS: CORAZON PIZANO DR: Zoya Patten MD _ SOURCE: URINE SPDESC: ORDERED: Urine Culture Procedure Result Reported Site Urine Culture Final 11/06/18- 0939 ML Organism 1 ESCHERICHIA COLI [place] Count >100,000 (Many) CFU/ML 1. ESCHERICHIA COLI [...] END OF REPORT DEPARTMENT OF PATHOLOGY, [address] [place] [address] Renaldo Santos M.D. Director [facility] # [id number] 11 REFERENCE VALUE Cutoff: 500 12 REFERENCE [...] REFERENCE VALUE Cutoff: 100 19 Laura Brink, Contin; Also a minor metabolite (10%) of codeine and can be seen in low concentrations (<2,000 ng/mL) with poppy seed ingestion. 20 Metabolite of morphine REFERENCE VALUE Cutoff: 100 21 Metabolite of heroin 22 Lortab, [place], Vicodin; Also a very minor metabolite of [...] developed and its performance characteristics determined by [facility] in a manner consistent with CLIA requirements. This test has not been cleared or approved by the U.S. Food and Drug Administration. Test Performed by: [facility] [employer] [facility] [address] [place] [address] 51 SEE RESULT BELOW Name: LESLY GILES : [address]: Mat Mckeon MD Acct: [id number] Unit: [id number] AGE: 53 Location: WOUND Re10/13/18 SEX: F Status: REG REF SPEC: [id number] ASHLEY: 10/13/18-1354 [facility] DR: Mat Mckeon MD REQ: [id number] RECD: 10/13/18 STATUS: CORAZON PIZANO DR: Gustavo Maldonado MARKET RESEARCH MANAGER _ SOURCE: TOE SPDESC: ORDERED: Culture Stain [...] CONTINUED ON NEXT PAGE DEPARTMENT OF PATHOLOGY, [address] [place] [address] Renaldo Santos M.D. Director [facility] # [id number] Patient: LESLY GILES [id number] (Continued) Specimen: [id number] Collected: 10/13/18 Received: 10/13/18002 (Continued) Procedure Result Reported Site Wound/Misc Culture Final (continued) * These antibiotics are not available in the [facility] Formulary Contact the Microbiology Department for any additional antibiotic reporting. * ML - Main Lab . END OF REPORT DEPARTMENT OF PATHOLOGY, [address] [place] [address] Renaldo Santos M.D. Director [facility] # [id number] 52 Fine Wire Drawer: [id number] 53 Fine Wire Drawer: [id number] 54 SEE RESULT BELOW Name: LESLY GILES : [address]: Khai Lam MD Acct: [id number] Unit: [id number] AGE: 53 Location: [place] [address] Re09/04/18 SEX: F Status: ADM IN SPEC: [id number] ASHLEY: 09/05/[address]: Hailey Head MD REQ: [id number] RECD: 09/05/18 STATUS: CORAZON PIZANO DR: Gustavo Maldonado MARKET RESEARCH MANAGER _ SOURCE: URINE SPDESC: ORDERED: Urine Culture Procedure Result Reported Site Urine Culture Final 09/06/18- 1010 ML Organism 1 STREP GROUP B [place] Count >100,000 (Many) CFU/ML Susceptibility testing of penicillins and other B-lactams approved by FDA for treatment of Streptococcus pyogenes (Group A Strep) and Streptococcus agalactiae (Group B Strep) is not necessary for clinical purposes and need not be done routinely, since as with vancomycin, resistant strains have not been recognized. (CLSI U585-T22;p.66) Positive isolates will be saved for one week. Please call the Microbiology Laboratory if further susceptibility testing is needed. * ML - Main Lab . END OF REPORT DEPARTMENT OF PATHOLOGY, [address] [place] [address] Renaldo Santos M.D. Director [facility] # [id number] 55 SEE RESULT BELOW Name: LESLY GILES Jose : [address]: Emily Restrepo MD Acct: [id number] Unit: [id number] AGE: 53 Location: [place] [address] Re09/04/18 Dis: 09/06/18 SEX: F Status: DIS IN SPEC: [id number] ASHLEY: 09/04/18 [facility] DR: Hailey Head MD REQ: [id number] RECD: 09/04/18 STATUS: CORAZON PIZANO DR: Gustavo Maldonado MARKET RESEARCH MANAGER _ SOURCE: BLOOD,VENO SPDESC: ORDERED: Blood Cult Procedure Result Reported Site Aerobic Culture Bottle Final 09/09/18- 1753 ML No Growth Day 5 Anaerobic Culture Bottle Final 09/09/18- 1751 ML No Growth Day 5 * ML - Main Lab . END OF REPORT DEPARTMENT OF PATHOLOGY, [address] [place] [address] Renaldo Santos M.D. Director [facility] # [id number] 56 *Ascorbic acid is present which may interfere with detection of blood. 57 Fine Wire Drawer: [id number] 58 Fine Wire Drawer: [id number] 59 Fine Wire Drawer: [id number] 60 Because ethnic data is not always [...] testing. 62 Critical Result LACT:3.1 Called to [id number] at: 18:13:46 by:[id number] Read back by:[id number] [facility] Severe Sepsis and Septic Shock Management Bundle Measure requires all lactic acids initially measuring >2.0 mmol/L be repeated. 63 Interpretive information available on [facility] Lab Test Catalog at [email or web address] 64 SEE RESULT BELOW Name: KARLAHANNAHLESLY : [address]: Khai Lam MD Acct: [id number] Unit: [id number] AGE: 53 Location: ICU [id number] Re09/04/18 SEX: F Status: ADM IN SPEC: [id number] ASHLEY: 09/04/[address]: Hailey Head MD REQ: [id number] RECD: 09/04/18 STATUS: CORAZON PIZANO DR: Gustavo Maldonado MARKET RESEARCH MANAGER _ SOURCE: NASAL SPDESC: ORDERED: Flu A B Request Procedure Result Reported Site Rapid Influenza A B Request Final 09/04/18- 2107 ML Specimen received for Influenza A/B Molecular testing * ML - Main Lab . END OF REPORT DEPARTMENT OF PATHOLOGY, [address] [place] [address] Renaldo Santos M.D. Director [facility] # [id number] 65 Test Performed by: [facility] [address] [place] [address] 66 SEE RESULT BELOW Name: LESLY GILES : [address]: Wilber Galarza DO Acct: [id number] Unit: [id number] AGE: 52 Location: ICU [id number] Re05/27/18 SEX: F Status: ADM IN SPEC: [id number] ASHLEY: 05/26/18-[address]: Oziel Frank MD REQ: [id number] RECD: 05/26/18 STATUS: CORAZON PIZANO DR: Gustavo Maldonado MARKET RESEARCH MANAGER _ SOURCE: URINE SPDESC: ORDERED: Urine Culture Procedure Result Reported Site Urine Culture Final 05/28/18- 827 ML Organism 1 ESCHERICHIA COLI [place] Count >100,000 (Many) CFU/ML 1. ESCHERICHIA COLI [...] END OF REPORT DEPARTMENT OF PATHOLOGY, [address] [place] [address] Renaldo Santos M.D. Director [facility] # [id number] 67 Because ethnic data is not always [...] dialysis) 68 Critical Result [id number] Called to [id number] at: 11:07:06 by:[id number] Read back by:[email or web address] 69 Fine Wire Drawer: [id number] 70 SEE RESULT BELOW Name: LESLY GILES : [address]: Gustavo Maldonado NP Acct: [id number] Unit: [id number] AGE: 52 Location: [facility] Re05/24/18 SEX: F Status: REG REF SPEC: [id number] ASHLEY: 05/24/18-[address]: Gustavo Maldonado NP REQ: [id number] RECD: 05/24/18 STATUS: COMP _ SOURCE: TOE SPDESC: ORDERED: Culture Stain COMMENTS: [id number] Specimen Description Left great toe Procedure Result Reported Site Wound/Misc Gram Stain Final 05/25/18820 ML 1+ Epithelial Cells 1+ Neutrophils 4+ [...] CONTINUED ON NEXT PAGE DEPARTMENT OF PATHOLOGY, [address] [place] [address] Renaldo Santos M.D. Director [facility] # [id number] Patient: LESLY GILES [id number] (Continued) Specimen: [id number] Collected: 05/24/18 Received: 05/24/18-1945 (Continued) Procedure Result Reported Site Wound/Misc Culture Final (continued) 05/26/18- 1008 1. STAPHYLOCOCCUS AUREUS (continued) M.I.C. RX --------- ------ Vancomycin <=0.5 S Imipenem-Deduced S * Ampicillin/Sulbactam-Deduced S Cefazolin-Deduced S * These antibiotics are not available in the [facility] Formulary Contact the Microbiology Department for any additional antibiotic reporting. * ML - Main Lab . END OF REPORT DEPARTMENT OF PATHOLOGY, [address] [place] [address] Renaldo Santos M.D. Director [facility] # [id number] 71 Normal Range 180 to 914 Indeterminate [...] [address]: Gustavo Maldonado NP Acct: [id number] Unit: [id number] AGE: 52 Location: [facility] Re07/23/17 SEX: F Status: REG REF SPEC: [id number] ASHLEY: 07/23/17-[address]: Gustavo Maldonado NP REQ: [id number] RECD: 07/23/17 STATUS: COMP _ SOURCE: URINE SPDESC: ORDERED: Urine Culture COMMENTS: [id number] Urine Source: Random Procedure Result Reported Site Urine Culture Final 07/25/17- 841 ML Organism 1 ESCHERICHIA COLI [place] Count >100,000 (Many) CFU/ML 1. ESCHERICHIA COLI [...] antibiotic reporting. * ML - MAIN LAB ([facility]) . END OF REPORT * ML=Testing performed at Main Lab DEPARTMENT OF PATHOLOGY, [address] [place] [address] Renaldo Santos M.D. Director [facility] # [id number] 78 Acute inflammation: >10.00 79 Because ethnic [...] dialysis) Procedures Date Code Description Status 05/27/2018 38929 EEG Recording Awake & Asleep Completed 05/27/2018 29609 ECHO Transthorasic Realtime 2D W Doppler & Color Flow Completed Hosp 05/27/2018 06521 EKG, Interpretation Only Completed 05/27/2018 56680 Insert Non-Tunneled Venous Catether Completed 05/27/2018 37250 Endo-Trachial Tube Completed 05/16/2018 29097 Diffusing Capacity Completed 05/16/2018 21907 Plethysmography Determination Lung Volumes & Per Completed Airway Resist 05/16/2018 57409 Pulmonary Function><Bronchodil Completed 11/02/2017 [id number] Diabetic Retinal Eye Exam Completed 06/18/2017 [id number] Diabetic Retinal Eye Exam Completed 10/27/2016 04238 Removal Devitalization Tissue Wound Less Than Equal 20 Completed Square CM 10/12/2016 10858 EKG, Interpretation Only Completed 10/12/2016 [id number] Repair Hernia Inguinal > 5Yrs, Incarcerated Or Completed Strangulated 10/12/2016 43184 Repair Hernia Inguinal > 5Yrs, Incarcerated Or Completed Strangulated Encounters Type Date Location Provider Dx Diagnosis Office Visit 11/08/2018 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 Emily R33.9 Retention of kika Shaffer M.D. urine, Hospitalists unspecified R53.1 Weakness E11.69 Type 2 diabetes mellitus with other specified complication E11.621 Type 2 diabetes mellitus with foot ulcer L97.529 Non-pressure chronic ulcer oth prt left foot w unsp severity Office Visit 11/04/2018 [facility] Gale E11.65 Type 2 diabetes 10:47a Asskika singer NP mellitus with Hospitalists hyperglycemia R53.1 Weakness Office Visit 10/25/2018 11:40a [facility] [address] Internal Gustavo Maldonado, J44.9 Chronic Medicine - MARKET [employer]EARCH MANAGER obstructive [place] pulmonary disease, unspecified J01.90 Acute sinusitis, unspecified E11.42 Type 2 diabetes mellitus with diabetic polyneuropathy Office Visit 10/13/2018 12:45p [facility] Mat Potter E11.621 Type 2 diabetes [facility] [place] Mckeon mellitus with foot ulcer E11.42 Type 2 diabetes mellitus with diabetic polyneuropathy M86.672 Other chronic osteomyelitis, left ankle and foot Office Visit 09/27/2018 [facility], E11.65 Type 2 diabetes 4:00p Endocrinology of mellitus with [employer] hyperglycemia E11.649 Type 2 diabetes mellitus with hypoglycemia without coma Z79.4 FPC (current) use of insulin Office Visit 09/07/2018 Orth[facility] Pablo Clara, L97.529 Non-pressure 2:30p Services Of chronic ulcer oth C.M.A. 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 mellitus with Hospitalists hypoglycemia without coma G93.41 Metabolic encephalopathy E11.621 Type 2 diabetes mellitus with foot ulcer L97.529 Non-pressure chronic ulcer oth prt left foot w unsp severity Office Visit 09/06/2018 [facility], E11.649 Type 2 diabetes 10:32a Endocrinology of mellitus with [employer] hypoglycemia without coma Z79.4 FPC (current) use of insulin E11.621 Type 2 diabetes mellitus with foot ulcer L97.529 Non-pressure chronic ulcer oth prt left foot w unsp severity Office Visit 09/05/2018 2:14p [facility] Yohan Iqbal E10.40 Type 1 diabetes For Infectious Tom Ruggiero mellitus with Diseases diabetic neuropathy, unsp E10.621 Type 1 diabetes mellitus with foot ulcer L97.529 Non-pressure chronic ulcer oth prt left foot w unsp severity T84.89xA Ot comp of internal orthopedic prosth dev/grft, init Office Visit 09/05/2018 [facility], E11.649 Type 2 diabetes 9:57a Assoc,pc N.P. 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 w unsp severity J44.9 Chronic obstructive pulmonary disease, unspecified Z79.4 FPC (current) use of insulin Office Visit 09/04/2018 [facility] Eda E11.649 Type 2 diabetes 9:57a Asskika singer NP mellitus with Hospitalists hypoglycemia without coma N17.9 Acute kidney failure, unspecified L97.529 Non-pressure chronic ulcer oth prt left foot w unsp severity E11.621 Type 2 diabetes mellitus with foot ulcer E86.0 Dehydration E87.2 Acidosis E87.6 Hypokalemia Office Visit 09/01/2018 1:40p [facility] [place] Alma Rosa, Z79.4 FPC Endocrinology of [facility] [address] MD (current) use of insulin E11.65 Type 2 diabetes mellitus with hyperglycemia B37.3 Candidiasis of vulva and vagina E78.5 Hyperlipidemia, unspecified R35.8 Other polyuria Office Visit 08/15/2018 10:40a [facility] [address] Internal Gustavo Erica, J44.9 Chronic Medicine - MARKET [employer]EARCH MANAGER obstructive [place] pulmonary disease, unspecified S91.102S Unsp opn wnd left great toe w/o damage to nail, sequela B37.3 Candidiasis of vulva and vagina Office Visit 07/11/2018 [facility] [place] Alma Rosa, E11.65 Type 2 diabetes 10:40a Endocrinology of MD mellitus with [employer] hyperglycemia B37.3 Candidiasis of vulva and vagina Office Visit 06/09/2018 [facility] [place] Coch, E11.65 Type 2 diabetes 2:00p Endocrinology of MD mellitus with [employer] hyperglycemia E78.5 Hyperlipidemia, unspecified Office Visit 06/07/2018 10:40a [facility] [address] Internal Gustavolauren Maldonado, S91.102S Unsp opn wnd Medicine - MARKET RESEARCH MANAGER left great toe [place] w/o damage to nail, sequela J44.9 Chronic obstructive pulmonary disease, unspecified E11.42 Type 2 diabetes mellitus with diabetic polyneuropathy I10 Essential (primary) hypertension E78.5 Hyperlipidemia, unspecified [facility] 2 diabetes 11:03a kika Shaffer M.D. mellitus with Hospitalists hyperglycemia E11.621 Type 2 diabetes mellitus with foot ulcer L97.529 Non-pressure chronic ulcer oth prt left foot w unsp severity E11.641 Type 2 diabetes mellitus with hypoglycemia with coma N39.0 Urinary tract infection, site not specified B96.20 Unsp Escherichia coli as the cause of diseases classd elswhr Office [facility]2018 [facility] Type 2 Infectious Tom Ruggiero diabetes Diseases mellitus with foot ulcer L97.521 Non-prs chronic ulcer oth prt l foot limited to brkdwn skin L03.115 Cellulitis of right lower limb E11.65 Type 2 diabetes mellitus with hyperglycemia Office Visit 05/30/2018 11:03a [facility] Estela, E11.621 Type 2 Assockika M.D. 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 (current) use Hospitalists of insulin E11.641 Type 2 diabetes mellitus with hypoglycemia with coma E11.621 Type 2 diabetes mellitus with foot ulcer L97.529 Non-pressure chronic ulcer oth prt left foot w unsp severity N39.0 Urinary tract infection, site not specified B96.20 Unsp Escherichia coli as the cause of diseases classd elswhr Office Visit 05/28/2018 11:02a Intensivists Beth You96.00 Acute respiratory DO failure, unsp w hypoxia [...] not specified Office Visit 05/27/2018 11:02a Intensivists Beth You96.00 Acute respiratory DO failure, unsp w hypoxia or hypercapnia E11.641 Type 2 diabetes mellitus with hypoglycemia with coma N17.9 Acute kidney failure, unspecified I95.9 Hypotension, unspecified R00.1 Bradycardia, unspecified Office Visit 05/27/2018 [facility] Danny Benson R40.20 Unspecified coma 11:01a kika Shaffer II, M.D. Hospitalists J96.00 Acute respiratory failure, unsp w hypoxia or hypercapnia R00.1 Bradycardia, unspecified I95.9 Hypotension, unspecified R29.2 Abnormal reflex Office 05/27/2018 [facility] Y[facility] G93.40 Encephalopathy, Visit 7:00a Sommer Chanel MD unspecified Office 05/26/2018 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 ( current) Medicine - MARKET RESEARCH MANAGER use of oral [place] hypoglycemic drugs E11.42 Type 2 diabetes mellitus with diabetic polyneuropathy L03.116 Cellulitis of left lower limb S91.102S Unsp opn wnd left great toe w/o damage to nail, sequela Office Visit 04/21/2018 10:20a [facility] [address] Internal Gustavo Maldonado, E11.42 Type 2 diabetes Medicine - MARKET RESEARCH MANAGER mellitus with [place] diabetic polyneuropathy I10 Essential (primary) hypertension R09.02 Hypoxemia B85.2 Pediculosis, unspecified Office Visit 01/17/2018 2:00p [facility] [address] Internal Gustavo Maldonado, E11.42 Type 2 diabetes Medicine - MARKET RESEARCH MANAGER mellitus with [place] diabetic polyneuropathy F33.0 Major depressive disorder, recurrent, mild I10 Essential (primary) hypertension Office Visit 12/15/2017 4:00p [employer] Internal Gustavo Maldonado, E11.42 Type 2 diabetes Medicine - MARKET RESEARCH MANAGER mellitus with [place] diabetic polyneuropathy M79.672 Pain in left foot I10 Essential (primary) hypertension Office Visit 10/29/2017 9:00a [facility] Gustavo Maldonado, E11.42 Type 2 diabetes Medicine - MARKET RESEARCH MANAGER mellitus with [place] diabetic polyneuropathy F33.0 Major depressive disorder, recurrent, mild B85.0 Pediculosis due to Pediculus humanus capitis Office Visit 09/03/2017 1:40p [facility] [address] Internal Gustavo Maldonado, E11.42 Type 2 diabetes Medicine - MARKET RESEARCH MANAGER mellitus with [place] diabetic polyneuropathy R19.7 Diarrhea, unspecified Office Visit 07/23/2017 2:00p [facility] [address] Internal Gustavo Maldonado, F33.0 Major depressive Medicine - MARKET RESEARCH MANAGER disorder, [place] recurrent, mild F41.9 Anxiety disorder, unspecified R35.0 Frequency of micturition Office Visit 06/18/2017 11:00a [facility] [address] Internal Gustavo Maldonado, E11.40 Type 2 diabetes Medicine - MARKET RESEARCH MANAGER mellitus with [place] diabetic neuropathy, unsp Z13.220 Encounter for screening for lipoid disorders F33.0 Major depressive disorder, recurrent, mild Office Visit 12/31/2016 11:00a Orthopedic Kael Keene M25.571 Pain in right Services Of Jinny Banerjee MD ankle and joints of right foot M76.61 Achilles tendinitis, right leg Office Visit 12/18/2016 11:00a [facility] Khai Lam, M25.571 Pain in right Medicine - M.Farida ankle and [place] joints of right foot E11.40 Type 2 diabetes mellitus with diabetic neuropathy, unsp Office Visit 12/16/2016 2:20p [facility] Teresa Iqbal M25.571 Pain in right Infectious Tom Ruggiero ankle and Diseases joints of right foot Office Visit 11/23/2016 4:20p [facility] Teresa Iqbal E11.40 Type 2 Infectious Tom Ruggiero diabetes Diseases mellitus with diabetic neuropathy, unsp R21 Rash and other nonspecific skin eruption Office Visit 11/06/2016 10:40a [facility] Khai E11.621 Type 2 diabetes Milind Lam M.D. 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 Office Visit 10/27/2016 11:55a Wound Care Mat Potter E11.621 Type 2 diabetes Center [facility] [place] Mckeon mellitus with foot ulcer L97.411 Non-prs chr ulcer of right heel and [facility] L03.115 Cellulitis of right lower limb Office Visit 10/20/2016 11:20a [facility] [address] Internal Khai J44.9 Chronic Medicine - Tom Lam obstructive [place] pulmonary disease, unspecified R09.02 Hypoxemia K40.40 Unil inguinal hernia, w gangrene, not specified as recurrent E11.8 Type 2 diabetes mellitus with unspecified complications E11.40 Type 2 diabetes mellitus with diabetic neuropathy, unsp Office Visit 10/15/2016 [facility] Xochitl Palmer, K56.69 Other intestinal 12:28p kika Shaffer M.D. obstruction Hospitalists E11.42 Type 2 diabetes mellitus with diabetic polyneuropathy [facility] Type 2 diabetes 12:28p kika Shaffer M.D. mellitus with Hospitalists diabetic polyneuropathy K56.69 Other intestinal obstruction [facility] Other intestinal 12:27p kika Shaffer NP obstruction Hospitalists E13.10 Oth diabetes mellitus with ketoacidosis without coma [facility] Type 2 diabetes Visit 12:26p Asskika singer PA mellitus with Hospitalists diabetic polyneuropathy K56.69 Other intestinal obstruction Office Visit 10/12/2016 [facility]. K40.30 Unil inguinal 7:00a [facility] [address] MD Keisha hernia, w obst, w/o gangr, not spcf as recur Office Visit 05/15/2015 [facility] Axel Mercado, 599.0 UTI Urinary 8:19a kika Shaffer M.D. Tract Infection Hospitalists Site Not Spec 250.02 Diabetes Mellitus W/O Compl Type II Or Unspec Type Uncontrol Plan of Treatment Future Appointment(s):12/08/2018 1:40 pm - Gustavo Maldonado NP at [facility] [address] Internal Medicine [facility]11/24/2018 - Gustavo Maldonado NPJ44.9 Chronic obstructive pulmonary disease, unspecifiedNew Medication:Advair Diskus 500-50 mcg/Dose - 1 puff twice daily. Rinse mouth after useNew Labs:Comp Metabolic Panel, Ordered: 11/24/18Comments:It is important to use the Advair twice daily. I have increased the dose. You should be using the ipratropium/albuterol through the nebulizer four times daily.L97.529 Non-pressure chronic ulcer of other part of left foot with uNew Medication:[employer] Quad Cane - Use while ambulatingNew Labs: CBC Auto Diff, Ordered: 11/24/18E78.5 Hyperlipidemia, unspecifiedNew Labs:Lipid Profile (Trig/Chol/HDL), Ordered: 11/24/18Liver Function Panel, Ordered: Comments:You should be taking the Atorvastatin daily. I sent this in to the pharmacy again. We need to recheck your cholesterol levels in three months.I95.1 Orthostatic hypotensionNew Labs:CBC Auto Diff, Ordered: New Orders:orthostatic blood pressures, Ordered: 11/24/18Comments:Decrease the lisinopril to 2.5mg. Check your blood pressure daily and report low readings less than 100/60 (either number) Have the bloodwork done soon.Follow up :2-3 weeks
--- OUTSIDE RECORDS SUMMARY | 2018-12-08 00:08 | XMS REPORT | Continuity of Care Document ---
:1965 External Reference #:[id number] Author Name Nahomi Mckenna Care Team Providers Name Role Phone Zoya Patten MD Primary Care Physician Unavailable Payers Date Identification Numbers Payment Provider Subscriber Effective: 2016 Policy Number: [id number] [place] [employer]assan Garcia [employer] Group Number: [id number] [address] PayID: [id number] [place] [address] Expires: 2016 Policy Number: [id number] [employer] Lesly Garcia Meche PayID: [id number] [address] [address] TARIK Julio [address] Advance Directives Type Date Description Status Comment [...] 0.5-2.5(3 90uni 1 vial in J44.9 Gustavo [place]/Albuter 2017 )mg/3ML ts nebulizer AYESHA Maldonado ol [...] s adjustable AYESHA Maldonado height cane. Pen [place] 09/03/ Active Misc 31G X 5 100un [...] M25.571 Khai 2017 - Part s daily [place], M.D. 2017 Nystatin-Triamc 12/16/ Hx Ointment [id number]. 30uni apply to M25.571 Yohan hartman 2017 [...] Khai 0000 - bs 3 times a [place], 06/18/ day M.D. 2017 Cymbalta / Hx Caps 30mg 1 by mouth Khai 0000 - Part every day [place], M.D. 2017 Omeprazole / Hx Capsules 40mg [...] H/L Range Note Laboratory test finding 11/21/2018 [facility] Glucose Random 121 Hemoglobin A1c >14.0 High 5-7 Laboratory test 11/04/2018 [facility] Point of 404 mg/dL High 70-100 [address] [place] [address] [phone] Urine Culture And 11/04/2018 [facility] Urine SEE RESULT [address] [place] [place] [address] [phone] Urinalysis Profile 11/04/2018 [facility] Urine Color Yellow [address] [place] [address] [phone] Urine Appearance Cloudy Urine Specific [place] 1.020 N 1.010-1.030 Urine pH 6.0 N [...] Cell Present Abnormal Absent Laboratory test 11/04/2018 [facility] C Reactive 3.62 mg/L N < 8.[address] [place] [address] [phone] Creatine Kinase(CK) 41 U/L N 10-223 Alcohol < 10 mg/dL N <10 Magnesium 1.8 mg/dL Low 1.9-2.7 Troponin-I (TnI) 0.00 ng/mL <0.04 3 TSH (Thyroid Stim Horm) 0.51 mcIU/mL N 0.34-5.60 Comp Metabolic Panel 11/04/2018 [facility] Sodium 136 mmol/L N 135-[address] [place] [address] [phone] Potassium 3.5 mmol/L N 3.5-5.0 Chloride 101 [...] 84.2 >60 4 Venous Blood Gas 11/04/2018 [facility] Venous Blood pH 7.40 N 7.32-7.[address] [place] [address] [phone] Venous Pco2 44 mmHg N 41-51 Venous Po2 < 38.0 mmHg N 35-45 Venous O2 Saturation 65.6 % Low 70-80 Venous Blood Base Excess 2.0 mmol/L N 0.0-4.0 5 Venous Bicarbonate Hco3 25.6 mmol/L N 24-28 CBC Auto Diff 11/04/2018 [facility] White Blood 6.7 10^3/uL N 3.5-10.[address] [place] [address] [phone] Red Blood Count 4.45 10^6/uL N 4.00-5.40 [...] Blood Cells % 0 Laboratory test 11/04/2018 [facility] Lactic Acid 1.1 mmol/L N 0.5-2.0 [address] [place] [address] [phone] Laboratory test 11/04/2018 [facility] Rapid SEE RESULT [address] [place] [address] Antigen [phone] Rapid Influenza 11/04/2018 [facility] Influenza A NEGATIVE Negative 8 A & B Molecular [address] [place] [address] [phone] Influenza B Molecular NEGATIVE Negative Laboratory 11/04/2018 [facility] Point of Care 268 mg/dL High 70-100 9 test finding [address] [place] [address] [phone] Urine Drug SCR 11/04/2018 [facility] Amphetamine Ur None None ED & Pain [address] [place] [address] [phone] Barbiturates Urine Screen None Detected None Detect Benzodiazepine Urine Screen None Detected None Detect Urine Cannabinoids Screen None Detected None Detect Urine Cocaine Screen None Detected None Detect Urine Opiates Screen None Detected None Detect Urine Phencyclidine Screen None Detected None Detect 10 Drug Abuse 20 10/25/2018 [facility] Urine Amphetamine Negative ng/mL [address] [place] [address] [phone] Urine Barbiturates Negative ng/mL 12 Urine Benzodiazepines Negative ng/mL 13 Urine Cocaine Negative ng/mL 14 Urine Phencyclidine Negative ng/mL Cutoff: 25 Urine Tetrahydrocannabinol Negative ng/mL Cutoff: 50 15 Creatinine, Urine 30.5 mg/dL Specific [place] 1.007 pH 5.3 Oxidants Negative 16 Adulterants Comment Normal Codeine, Ur Not Detected ng/mL Cutoff: 25 17 Npxmcmh-1-ccwo-glucuronide, Ur Not Detected ng/mL 18 Morphine, Ur Not Detected ng/mL Cutoff: 25 19 Fupmyqwy-6-ienw-glucuronide, U Not Detected ng/mL 20 6-monoacetylmorphine, Ur Not Detected ng/mL Cutoff: 25 21 Hydrocodone, Ur Not Detected ng/mL Cutoff: 25 22 Norhydrocodone, Ur Not Detected ng/mL Cutoff: 25 23 Dihydrocodeine, Ur Not Detected ng/mL Cutoff: 25 24 Hydromorphone, Ur Not Detected ng/mL Cutoff: 25 25 Tqwvetfoisxae8ubgajpfgvtjctbo Not Detected ng/mL 26 Oxycodone, Ur Not Detected ng/mL Cutoff: 25 27 Noroxycodone, Ur Not Detected ng/mL Cutoff: 25 28 Oxymorphone, Ur Not Detected ng/mL Cutoff: 25 29 Togcwoapszy-9-fpfe-glucuronide Not Detected ng/mL 30 Noroxymorphone, Ur Not Detected ng/mL Cutoff: 25 31 Fentanyl, Ur Not Detected ng/mL Cutoff: 2 32 Norfentanyl, Ur Not Detected ng/mL Cutoff: 2 33 Meperidine, Ur Not Detected ng/mL Cutoff: 25 34 Normeperidine, Ur Not Detected ng/mL Cutoff: 25 35 Naloxone, Ur Not Detected ng/mL Cutoff: 25 36 Qlkwyavn-8-tjsb-glucuronide, U Not Detected ng/mL 37 Methadone, Ur [...] Ur Not Detected ng/mL Cutoff: 50 45 Hodxfsjpaf-psxr-fezgtfmaurx, U Not Detected ng/mL 46 Buprenorphine, Ur Not Detected ng/mL Cutoff: 5 47 Norbuprenorphine, Ur Not Detected ng/mL Cutoff: 5 48 Norbuprenorphine glucuronide Not Detected ng/mL Cutoff: 20 49 Opioid Interpretation See Comment 50 Wound 10/13/2018 [facility] Wound/Misc SEE RESULT 51 Culture/Sensi [address] [place] [address] Stain [phone] Laboratory test 09/04/2018 [facility] Point of Care 63 mg/dL Low 70-1 [address] Glucose 00 [place], [place] [phone] Urine Culture And 09/04/2018 [facility] Urine Culture SEE RESULT [address] BELOW [place], [place] [phone] Laboratory test 09/04/2018 [facility] Blood Culture SEE RESULT [address] BELOW [place], [place] [address] [phone] Urinalysis Profile 09/04/2018 [facility] Urine Color Yellow [address] [place], [place] [address] [phone] Urine Appearance Cloudy Urine Specific [place] 1.021 N 1.010-1.030 Urine pH 5.0 N [...] Cell Present Abnormal Absent Laboratory test 09/04/2018 [facility] Erythrocyte Sed 34 mm/Hr High 0-[address] [place] [address] [phone] Procalcitonin < 0.1 ng/mL <0.6 56 Rapid Influenza A B Antigen SEE RESULT BELOW 57 CBC Auto Diff 09/04/2018 [facility] White Blood 9.5 10^3/uL N 3.5-10.[address] [place] [address] [phone] Red Blood Count 4.72 10^6/uL N 4.00-5.40 [...] Blood Cells % 0.1 Laboratory test 09/04/2018 [facility] Partial 25.2 seconds Low 26.0-36.[address] [place] [address] PTT [phone] Fibrinogen 383.2 mg/dL N 110.8-404.3 Inr/Protime 09/04/2018 [facility] Inr 0.80 N 0.77-1.[address] [place] [address] [phone] Laboratory test 09/04/2018 [facility] Creatine 64 U/L N 10- [address] Kinase(CK) [place] [address] [phone] C Reactive Protein 3.76 mg/L N <8.01 Troponin-I (TnI) 0.00 ng/mL <0.04 58 Lactic Acid 3.1 mmol/L High 0.5-2.0 59 Comp Metabolic Panel 09/04/2018 [facility] Sodium 137 mmol/L N 135-[address] [place] [address] [phone] Potassium 3.2 mmol/L Low 3.5-5.0 Chloride 101 [...] Egfr 64.0 >60 60 Laboratory test 09/04/2018 [facility] B-Type 62 pg/mL <=[address] [place] [address] Peptide BNP [phone] Laboratory test 09/04/2018 [facility] Point of Care 87 mg/dL N 70-100 [address] [place] [address] [phone] Laboratory test 09/04/2018 [facility] Point of Care 84 mg/dL N 70-100 [address] [place] [address] [phone] Laboratory test 09/04/2018 [facility] Point of Care 226 mg/dL High 70-100 [address] [place] [address] [phone] Laboratory test 09/04/2018 [facility] Point of Care 214 mg/dL High 70-100 64 finding 101 [facility] [place] [place] [address] [phone] Laboratory test 07/18/2018 [facility] C-Peptide 2.2 ng/mL 1.1 - 4.4 65 finding [address] [place] [address] [phone] Insulin Level 28.9 mcIU/mL High 2.0-16.0 Glucose 476 mg/dL High 70-100 Laboratory test finding 07/11/2018 [facility] Hemoglobin A1c 13.4 High 5-7 Glucose Random 478 Ketones 0.3 Laboratory test 06/09/2018 [facility] Glucose Random 170 finding Laboratory test 05/26/2018 [facility] Point of Care > 444 High 70-100 66 finding 101 [facility] Glucose mg/[place] [address] [phone] Laboratory test 05/26/2018 [facility] C Reactive 8.76 mg/L High <8.01 finding 101 [facility] [place] [address] [phone] Comp Metabolic 05/26/2018 [facility] Sodium 133 mmol/L Low 135 -145 Panel [address] [place] [address] [phone] Potassium 4.2 mmol/L N 3.5-5.0 Chloride 95 [...] High 70-100 68 CBC Auto Diff 05/26/2018 [facility] White Blood 5.8 10^3/uL N 3.5-10.[address] [place] [address] [phone] Red Blood Count 4.41 10^6/uL N 4.00-5.40 [...] Cells % 0.3 Urine Culture And 05/26/2018 [facility] Urine Culture SEE RESULT [address] [place] [address] [phone] Urinalysis Profile 05/26/2018 [facility] Urine Color Yellow [address] [place] [address] [phone] Urine Appearance Cloudy Urine Specific [place] 1.025 N 1.010-1.030 Urine pH 7.0 N [...] Epithelial Cell Present Abnormal Absent Wound 05/24/2018 [facility] Wound/Misc SEE RESULT 70 Culture/Sensi [address] [place] [address] Stain [phone] Laboratory test 05/24/2018 [facility] Hemoglobin A1c >14 High 5-7 finding CBC Auto Diff 05/16/2018 [facility] White Blood 7.7 N 3.5- [address] Count 10^3/uL 10.8 [place] [address] [phone] Red Blood Count 4.26 10^6/uL N 4.00-5.40 [...] Blood Cells % 0.1 Urine Microalbumin 05/16/2018 [facility] Urine Creatinine 511.74 mg/dL Random [address] [place] [address] [phone] Ur Microalbumin (mg/L) 1196.9 Urine Microalbumin/Creatinine 233.8 High <31 Comp Metabolic Panel 05/16/2018 [facility] Sodium 139 mmol/L N 135-[address] [place] [address] [phone] Potassium 3.5 mmol/L N 3.5-5.0 Chloride 101 [...] Egfr 45.5 >60 71 Lipid Profile 05/16/2018 [facility] Triglycerides 172 mg/dL 72 (Trig/Chol/HDL) [address] [place] [address] [phone] Cholesterol 194 mg/dL 73 HDL Cholesterol 57.3 mg/dL 74 LDL Cholesterol 102 mg/dL 75 Laboratory test 05/16/2018 [facility] Vitamin B12 538 pg/mL N 180-914 [address] [place] [address] [phone] Ua Routine 07/23/2017 [facility] Ua Specific 1.025 [place] Ua PH 5 Ua Color dark yellow Ua Appera cloudy Ua WBC positive Ua Protein 500 Ua Glucose 1000 Ua Ketones negative Ua Bilirubin small Ua Urobilinogen normal Ua Nitrite negative Ua Occult Blood 250 Urine Culture And 07/23/2017 [facility] Urine Culture SEE RESULT [address] [place] [address] [phone] Laboratory test 06/18/2017 [facility] Hemoglobin A1c 12.6 High 5-7 finding Laboratory test 12/18/2016 [facility] Hemoglobin A1c 14.0 High 5-7 finding Comp Metabolic 11/30/2016 [facility] Sodium 131 mmol/L Low 133 - Panel [address] [place] [address] [phone] Potassium 4.3 mmol/L N 3.5-5.0 Chloride 96 [...] 557 mg/dL High 70-100 Laboratory test 11/30/2016 [facility] C Reactive 2.40 mg/L N < 5.00 [address] [place] [address] [phone] 1 Maintenance Groundman: [id number] 2 SEE RESULT BELOW Name: LESLY GILES : [address]: Ara Alvarez DO Acct: [id number] Unit: [id number] AGE: 53 Location: [facility] 332-01 Re11/05/18 SEX: F Status: ADM IN SPEC: [id number] ASHLEY: 11/04/[address]: Soraya MERCEDES REQ: [id number] RECD: 11/04/18 STATUS: CORAZON PIZANO DR: Zoya Patten MD _ SOURCE: URINE SPDESC: ORDERED: Urine Culture Procedure Result Reported Site Urine Culture Final 11/06/18- 0939 ML Organism 1 ESCHERICHIA COLI [place] Count >100,000 (Many) CFU/ML 1. ESCHERICHIA COLI [...] . END OF REPORT DEPARTMENT OF PATHOLOGY, [address] [place] [address] Renaldo Santos M.D. Director [facility] # [id number] 3 Troponin-I testing on Plasma Separator Tubes [...] Reference ranges based on room air. 6 [facility] Severe Sepsis and Septic Shock Management Bundle Measure requires all lactic acids initially measuring >2.0 mmol/L be repeated. 7 SEE RESULT BELOW Name: LESLY GILES : [address]: Rohan Nathan MD Acct: [id number] Unit: [id number] AGE: 53 Location: ED Re11/04/18 SEX: F Status: PRE ER SPEC: [id number] ASHLEY: 11/04/[address]: Soraya MERCEDES REQ: [id number] RECD: 11/04/18 STATUS: CORAZON PIZANO DR: Zoya Nathan MD _ SOURCE: NASAL SPDESC: ORDERED: Flu A B Request Procedure Result Reported Site Rapid Influenza A B Request Final 11/04/181942 ML Specimen received for Influenza A/B Molecular testing * - Main Lab . END OF REPORT DEPARTMENT OF PATHOLOGY, [address] [place] [address] Renaldo Santos M.D. Director [facility] # [id number] 8 Maintenance Groundman: [id number] Maintenance Groundman: [id number] 10 The urine specimen was tested at [...] 100 21 Metabolite of heroin 22 Lortab, Marydel, Vicodin; Also a very minor metabolite of [...] developed and its performance characteristics determined by [facility] in a manner consistent with CLIA requirements. This test has not been cleared or approved by the U.S. Food and Drug Administration. Test Performed by: [facility] [address] [place] [id number] SEE RESULT BELOW Name: LESLY GILES : [address]: Mat Mckeon MD Acct: [id number] Unit: [id number] AGE: 53 Location: WOUND Re10/13/18 SEX: F Status: REG REF SPEC: [id number] ASHLEY: 10/13/18-[address] [facility] [address]: Mat Mckeon MD REQ: [id number] RECD: 10/13/18 STATUS: CORAZON PIZANO DR: Gustavo Maldonado WOMEN DESIGNER _ SOURCE: TOE [facility]: ORDERED: Culture Stain Procedure Result Reported [...] CONTINUED ON NEXT PAGE DEPARTMENT OF PATHOLOGY, [address] [place] [address] Renaldo Santos M.D. Director [facility] # [id number] Patient: LESLY GILES [id number] (Continued) Specimen: [id number] Collected: 10/13/18 Received: 10/13/18-1655 (Continued) Procedure Result Reported Site Wound/Misc Culture Final (continued) * These antibiotics are not available in the [facility] Formulary Contact the Microbiology Department for any additional antibiotic reporting. * - Main Lab . END OF REPORT DEPARTMENT OF PATHOLOGY, [address] [place] [address] Renaldo Santos M.D. Director [facility] # [id number] 52 Maintenance Groundman: [id number] 53 SEE RESULT BELOW Name: LESLY GILES : [address]: Khai Lam MD Acct: [id number] Unit: [id number] AGE: 53 Location: [place] [address] Re09/04/18 SEX: F Status: ADM IN SPEC: [id number] ASHLEY: 09/05/[address]: Hailey Head MD REQ: [id number] RECD: 09/05/18 STATUS: CORAZON PIZANO DR: Gustavo Maldonado WOMEN DESIGNER _ SOURCE: URINE SPDESC: ORDERED: Urine Culture Procedure Result Reported Site Urine Culture Final 09/06/18- 1010 ML Organism 1 STREP GROUP B [place] Count >100,000 (Many) CFU/ML Susceptibility testing of penicillins and other B-lactams approved by FDA for treatment of Streptococcus pyogenes (Group A Strep) and Streptococcus agalactiae (Group B Strep) is not necessary for clinical purposes and need not be done routinely, since as with vancomycin, resistant strains have not been recognized. (CLSI I807-J96;p.66) Positive isolates will be saved for one week. Please call the Microbiology Laboratory if further susceptibility testing is needed. * ML - Main Lab . END OF REPORT DEPARTMENT OF PATHOLOGY, [address] [place] [address] Renaldo Santos M.D. Director [facility] # [id number] 54 SEE RESULT BELOW Name: LESLY GILES : [address]: Emily Restrepo MD Acct: [id number] Unit: [id number] AGE: 53 Location: [place] [address] Re09/04/18 Dis: 09/06/18 SEX: F Status: DIS IN SPEC: [id number] ASHLEY: 09/04/[address]: Hailey Head MD REQ: [id number] RECD: 09/04/18 STATUS: CORAZON PIZANO DR: Gustavo Maldonado WOMEN DESIGNER _ SOURCE: BLOOD,VENO SPDESC: ORDERED: Blood Cult Procedure Result Reported Site Aerobic Culture Bottle Final 09/09/18- 1753 ML No Growth Day 5 Anaerobic Culture Bottle Final 09/09/18- 1751 ML No Growth Day 5 * ML - Main Lab . END OF REPORT DEPARTMENT OF PATHOLOGY, [address] [place] [address] Renaldo Santos M.D. Director [facility] # [id number] 55 *Ascorbic acid is present which may interfere with detection of blood. 56 Interpretive information available on [employer] Test Catalog at [email or web address] 57 SEE RESULT BELOW Name: LESLY GILES Jose : [address]: Khai Lam MD Acct: [id number] Unit: [id number] AGE: 53 Location: ICU [id number] Re09/04/18 SEX: F Status: ADM IN SPEC: [id number] ASHLEY: 09/04/[address]: Hailey Head MD REQ: [id number] RECD: 09/04/18 STATUS: COMP CHRISTIANOHR DR: Gustavo Maldonado WOMEN DESIGNER _ SOURCE: NASAL SPDESC: ORDERED: Flu A B Request Procedure Result Reported Site Rapid Influenza A B Request Final 09/04/18- 2107 ML Specimen received for Influenza A/B Molecular testing * ML - Main Lab . END OF REPORT DEPARTMENT OF PATHOLOGY, [address] [place] [address] Renaldo Santos M.D. Director [facility] # [id number] 58 Troponin-I testing on Plasma Separator Tubes (PST) has a known false positive rate of 0.20-0.40%. All positive troponins reflex immediate secondary confirmatory testing. 59 Critical Result LACT:3.1 Called to [id number] at: 18:13:46 by:[id number] Read back by:MARK [facility] Severe Sepsis and Septic Shock [...] 5 Kidney failure <15 (or dialysis) 61 Maintenance Groundman: [id number] 62 Maintenance Groundman: [id number] 63 Maintenance Groundman: [id number] 64 Maintenance Groundman: [id number] 65 Test Performed by: [facility] [address] [place] [address] 66 Maintenance Groundman: [id number] 67 Because ethnic data is not always [...] dialysis) 68 Critical Result GLU:667 Called to [id number] at: 11:07:06 by:[id number] Read back by:[id number] 69 SEE RESULT BELOW Name: LESLY GILES : [address]: Wilber Galarza DO Acct: [id number] Unit: [id number] AGE: 52 Location: ICU [id number] Re05/27/18 SEX: F Status: ADM IN SPEC: [id number] ASHLEY: 05/26/[address]: Oziel Frank MD REQ: [id number] RECD: 05/26/18 STATUS: CORAZON PIZANO DR: Gustavo Maldonado WOMEN DESIGNER _ SOURCE: URINE SPDESC: ORDERED: Urine Culture Procedure Result Reported Site Urine Culture Final 05/28/18- 827 ML Organism 1 ESCHERICHIA COLI [place] Count >100,000 (Many) CFU/ML 1. ESCHERICHIA COLI [...] any additional antibiotic reporting. * - [facility] Lab . END OF REPORT DEPARTMENT OF PATHOLOGY, [address] [place] [address] Renaldo Santos M.D. Director [facility] # [id number] 70 SEE RESULT BELOW Name: LESLY GILES : [address]: Gustavo Maldonado NP Acct: [id number] Unit: [id number] AGE: 52 Location: [facility] Re05/24/18 SEX: F Status: REG REF SPEC: [id number] ASHLEY: 05/24/18-[address] [facility] [address]: Gustavo Maldonado NP REQ: [id number] RECD: 05/24/18 STATUS: COMP _ SOURCE: TOE SPDESC: ORDERED: Culture Stain COMMENTS: [id number] Specimen Description Left great toe Procedure Result [...] CONTINUED ON NEXT PAGE DEPARTMENT OF PATHOLOGY, [address] [place] [address] Renaldo Santos M.D. Director [facility] # [id number] Patient: LESLY GILES [id number] (Continued) Specimen: [id number] Collected: 05/24/18-1254 Received: 05/24/18 (Continued) Procedure Result Reported Site Wound/Misc Culture Final (continued) 05/26/18- 100 1. STAPHYLOCOCCUS AUREUS (continued) M.I.C. RX --------- ------ Vancomycin <=0.5 S Imipenem-Deduced S * Ampicillin/Sulbactam-Deduced S Cefazolin-Deduced S * These antibiotics are not available in the [facility] Formulary Contact the Microbiology Department for any additional antibiotic reporting. * ML - [facility] Lab . END OF REPORT DEPARTMENT OF PATHOLOGY, [address] [place] [address] Renaldo Santos M.D. Director [facility] # [id number] 71 Because ethnic data is not always [...] [address]: Gustavo Maldonado NP Acct: [id number] Unit: [id number] AGE: 52 Location: [facility] Re07/23/17 SEX: F Status: REG REF SPEC: [id number] ASHLEY: 07/23/17-[address]: Gustavo Maldonado NP REQ: [id number] RECD: 07/23/17 STATUS: COMP _ SOURCE: URINE SPDESC: ORDERED: Urine Culture COMMENTS: [id number] Urine Source: Random Procedure Result Reported Site Urine Culture Final 07/25/17- 0842 ML Organism 1 ESCHERICHIA COLI [place] Count >100,000 (Many) CFU/ML 1. ESCHERICHIA COLI [...] antibiotic reporting. * ML - MAIN LAB ([facility]) . END OF REPORT * ML=Testing performed at Main Lab DEPARTMENT OF PATHOLOGY, [address] [place] [address] Renaldo Santos M.D. Director [facility] # [id number] 78 Because ethnic data is not always [...] >10.00 Procedures Date Code Description Status 05/27/2018 10541 EEG Recording Awake & Asleep Completed 05/27/2018 93542 ECHO Transthorasic Realtime 2D W Doppler & Color Flow Completed Hosp 05/27/2018 19440 EKG, Interpretation Only Completed 05/27/2018 31252 Insert Non-Tunneled Venous Catether Completed 05/27/2018 51917 Endo-Trachial Tube Completed 05/16/2018 46992 Diffusing Capacity Completed 05/16/2018 85758 Plethysmography Determination Lung Volumes & Per Completed Airway Resist 05/16/2018 28345 Pulmonary Function><Bronchodil Completed 11/02/2017 013945486 Diabetic Retinal Eye Exam Completed 06/18/2017 093460966 Diabetic Retinal Eye Exam Completed 10/27/2016 54646 Removal Devitalization Tissue Wound Less Than Equal 20 Completed Square CM 10/12/2016 46802 EKG, Interpretation Only Completed 10/12/2016 37902 Repair Hernia Inguinal > 5Yrs, Incarcerated Or Completed Strangulated 10/12/2016 29254 Repair Hernia Inguinal > 5Yrs, Incarcerated Or Completed Strangulated Encounters Type Date Location Provider Dx Diagnosis Office Visit 11/08/2018 [facility] Piotr Brunner MD N39.0 Urinary tract 10:49a ,kika Hospitalists infection, site not specified B96.20 Unsp Escherichia coli as the cause of diseases classd elsr E11.621 Type 2 diabetes mellitus with foot ulcer L97.529 Non-pressure chronic ulcer oth prt left foot w unsp severity Office Visit 11/07/2018 10:49a [facility] Piotr Brunner, E11.65 Type 2 diabetes kika Shaffer MD mellitus with Hospitalists hyperglycemia B96.20 Unsp Escherichia coli as the cause of diseases classd [facility] N39.0 Urinary tract infection, site not specified E11.621 Type 2 diabetes mellitus with foot ulcer L97.529 Non-pressure chronic ulcer oth prt left foot w unsp severity Office Visit 11/06/2018 10:48a [facility] Ara R33.9 Retention of Livanoc,kika Root, DO urine, Hospitalists unspecified R53.1 Weakness E11.65 Type 2 diabetes mellitus with hyperglycemia E11.621 Type 2 diabetes mellitus with foot ulcer L97.529 Non-pressure chronic ulcer oth prt left foot w unsp severity E11.42 Type 2 diabetes mellitus with diabetic polyneuropathy Office Visit 11/06/2018 [facility] [address], E11.65 Type 2 diabetes 11:16a Endocrinology of mellitus with Manager Membership hyperglycemia 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 urine, Hospitalists unspecified R53.1 Weakness E11.69 Type 2 diabetes mellitus with other specified complication E11.621 Type 2 diabetes mellitus with foot ulcer L97.529 Non-pressure chronic ulcer oth prt left foot w unsp severity Office Visit 11/04/2018 [facility] Gale E11.65 Type 2 diabetes 10:47a kika Shaffer NP mellitus with Hospitalists hyperglycemia R53.1 Weakness Office Visit 10/25/2018 11:40a [facility] Internal Gustavo Maldonado, J44.9 Chronic Medicine - WOMEN DESIGNER obstructive [place] pulmonary disease, unspecified J01.90 Acute sinusitis, unspecified E11.42 Type 2 diabetes mellitus with diabetic polyneuropathy Office Visit 10/13/2018 12:45p Wound Care Mat Potter E11.621 Type 2 diabetes Center [facility] Tom Mckeon mellitus with foot ulcer E11.42 Type 2 diabetes mellitus with diabetic polyneuropathy M86.672 Other chronic osteomyelitis, left ankle and foot Office Visit 09/27/2018 [facility] [address], E11.65 Type 2 diabetes 4:00p Endocrinology of mellitus with Manager Membership hyperglycemia E11.649 Type 2 diabetes mellitus with hypoglycemia without coma Z79.4 alf (current) use of insulin Office Visit 09/07/2018 [facility] P[facility] Elizabeth, L97.529 Non-pressure 2:30p Services Of chronic ulcer oth C.M.A. prt left foot w unsp severity Z79.4 alf (current) use of insulin E11.621 Type 2 diabetes mellitus with foot ulcer E11.42 Type 2 diabetes mellitus with diabetic polyneuropathy M20.22 Hallux rigidus, left foot Office Visit 09/06/2018 [facility] Svetlana Bishop, E11.649 Type 2 diabetes 9:57a Asskika singer N.P. mellitus with Hospitalists hypoglycemia without coma G93.41 Metabolic encephalopathy E11.621 Type 2 diabetes mellitus with foot ulcer L97.529 Non-pressure chronic ulcer oth prt left foot w unsp severity Office Visit 09/06/2018 [facility] [address], E11.649 Type 2 diabetes 10:32a Endocrinology of MD mellitus with [facility] hypoglycemia without coma Z79.4 alf (current) use of insulin E11.621 Type 2 diabetes mellitus with foot ulcer L97.529 Non-pressure chronic ulcer oth prt left foot w unsp severity Office Visit 09/05/2018 2:14p [facility] Yohan Iqbal E10.40 Type 1 diabetes For Infectious Tom Ruggiero mellitus with Diseases diabetic neuropathy, unsp E10.621 Type 1 diabetes mellitus with foot ulcer L97.529 Non-pressure chronic ulcer oth prt left foot w unsp severity T84.89xA [facility] comp of internal orthopedic prosth dev/basilio, init Office Visit 09/05/2018 [facility] Svetlana Bishop, E11.649 Type 2 diabetes 9:57a Assoc,pc N.P. 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 Office Visit 09/04/2018 [facility] Eda E11.649 Type 2 diabetes 9:57a Assoc,pc AYESHA Rincon mellitus with Hospitalists hypoglycemia without coma N17.9 Acute kidney failure, unspecified L97.529 Non-pressure chronic ulcer oth prt left foot w unsp severity E11.621 Type 2 diabetes mellitus with foot ulcer E86.0 Dehydration E87.2 Acidosis E87.6 Hypokalemia Office Visit 09/01/2018 1:40p [facility] [address], Z79.4 alf Endocrinology of Addi MARIE (current) use of insulin E11.65 Type 2 diabetes mellitus with hyperglycemia B37.3 Candidiasis of vulva and vagina E78.5 Hyperlipidemia, unspecified R35.8 Other polyuria Office Visit 08/15/2018 10:40a [facility] Internal Gustavo Erica, J44.9 Chronic Medicine - WOMEN DESIGNER obstructive [place] pulmonary disease, unspecified S91.102S Unsp opn wnd left great toe w/o damage to nail, sequela B37.3 Candidiasis of vulva and vagina Office Visit 07/11/2018 [facility] [address], E11.65 Type 2 diabetes 10:40a Endocrinology of MD mellitus with Manager Membership hyperglycemia B37.3 Candidiasis of vulva and vagina Office Visit 06/09/2018 [facility] [address], E11.65 Type 2 diabetes 2:00p Endocrinology of MD mellitus with Manager Membership hyperglycemia E78.5 Hyperlipidemia, unspecified Office Visit 06/07/2018 10:40a [facility] Internal Gustavo Erica, S91.102S Unsp opn wnd Medicine - WOMEN DESIGNER left great toe [place] w/o damage to nail, sequela J44.9 Chronic obstructive pulmonary disease, unspecified E11.42 Type 2 diabetes mellitus with diabetic polyneuropathy I10 Essential (primary) hypertension E78.5 Hyperlipidemia, unspecified Office Visit 05/31/2018 [facility] Xochitl E11.65 Type 2 diabetes 11:03a Assoc,kika Palmer M.D. mellitus with Hospitalists hyperglycemia E11.621 Type 2 diabetes mellitus with foot ulcer L97.529 Non-pressure chronic ulcer oth prt left foot w unsp severity E11.641 Type 2 diabetes mellitus with hypoglycemia with coma N39.0 Urinary tract infection, site not specified B96.20 Unsp Escherichia coli as the cause of diseases classd elswhr Office Visit 05/31/2018 9:24a [facility] Yohan Iqbal E11.621 Type 2 Infectious Tom Ruggiero diabetes Diseases mellitus with foot ulcer L97.521 Non-prs chronic ulcer oth prt l foot limited to brkdwn skin L03.115 Cellulitis of right lower limb E11.65 Type 2 diabetes mellitus with hyperglycemia Office Visit 05/30/2018 11:03a [facility] Xochitl Palmer, E11.621 Type 2 Assockika M.D. diabetes Hospitalists mellitus with foot ulcer L97.529 Non-pressure chronic ulcer oth prt left foot w unsp severity N39.0 Urinary tract infection, site not specified B96.20 Unsp Escherichia coli as the cause of diseases classd elswhr Office Visit 05/29/2018 11:02a [facility] Xochitl Palmer, Z79.4 oil dispatcher Assoc,pc M.D. (current) use Hospitalists of insulin [...] unspecified R00.1 Bradycardia, unspecified Office Visit 05/27/2018 [facility] Danny Benson R40.20 Unspecified coma 11:01a Assoc,kika LAWRENCE M.D. Hospitalists J96.00 Acute respiratory failure, unsp w hypoxia or hypercapnia R00.1 Bradycardia, unspecified I95.9 Hypotension, unspecified R29.2 Abnormal reflex Office 05/27/2018 [facility] Yoly G93.40 Encephalopathy, Visit 7:00a Sommer Chanel MD unspecified Office 05/26/2018 [facility] Kandis E11.65 Type 2 diabetes Visit 11:01a Assoc,pc Hospitalists Jose Alberto WOMEN DESIGNER mellitus with hyperglycemia L97.429 Non-prs chronic ulcer of left heel and midfoot w unsp severt E11.621 Type 2 diabetes mellitus with foot ulcer N39.0 Urinary tract infection, site not specified I10 Essential (primary) hypertension Office Visit 05/24/2018 11:40a [employer] Internal Gustavo Erica, Z79.84 oil dispatcher ( current) Medicine - WOMEN DESIGNER use of oral [place] hypoglycemic drugs E11.42 Type 2 diabetes mellitus with diabetic polyneuropathy L03.116 Cellulitis of left lower limb S91.102S Unsp opn wnd left great toe w/o damage to nail, sequela Office Visit 04/21/2018 10:20a [facility] Internal Gustavo Maldonado, E11.42 Type 2 diabetes Medicine - WOMEN DESIGNER mellitus with [place] diabetic polyneuropathy I10 Essential (primary) hypertension R09.02 Hypoxemia B85.2 Pediculosis, unspecified Office Visit 01/17/2018 2:00p [facility] Internal Gustavo Maldonado, E11.42 Type 2 diabetes Medicine - WOMEN DESIGNER mellitus with [place] diabetic polyneuropathy F33.0 Major depressive disorder, recurrent, mild I10 Essential (primary) hypertension Office Visit 12/15/2017 4:00p [facility] Internal Gustavo Maldonado, E11.42 Type 2 diabetes Medicine - WOMEN DESIGNER mellitus with [place] diabetic polyneuropathy M79.672 Pain in left foot I10 Essential (primary) hypertension Office Visit 10/29/2017 9:00a [facility] Internal Gustavo Maldonado, E11.42 Type 2 diabetes Medicine - WOMEN DESIGNER mellitus with [place] diabetic polyneuropathy F33.0 Major depressive disorder, recurrent, mild B85.0 Pediculosis due to Pediculus humanus capitis Office Visit 09/03/2017 1:40p [facility] Internal Gustavo Maldonado, E11.42 Type 2 diabetes Medicine - WOMEN DESIGNER mellitus with [place] diabetic polyneuropathy R19.7 Diarrhea, unspecified Office Visit 07/23/2017 2:00p [facility] Internal Gustavo Maldonado, F33.0 Major depressive Medicine - WOMEN DESIGNER disorder, [place] recurrent, mild F41.9 Anxiety disorder, unspecified R35.0 Frequency of micturition Office Visit 06/18/2017 11:00a [facility] Internal Gustavo Maldonado, E11.40 Type 2 diabetes Medicine - WOMEN DESIGNER mellitus with [place] diabetic neuropathy, unsp Z13.220 Encounter for screening for lipoid disorders F33.0 Major depressive disorder, recurrent, mild Office Visit 12/31/2016 11:00a Orthopedic Kael Keene M25.571 Pain in right Services Of Jinny Banerjee MD ankle and joints of right foot M76.61 Achilles tendinitis, right leg Office Visit 12/18/2016 11:00a [facility] Internal Khai Lam, M25.571 Pain in right Medicine - M.DSharif ankle and [place] joints of right foot E11.40 Type 2 diabetes mellitus with diabetic neuropathy, unsp Office Visit 12/16/2016 2:20p [facility] Teresa Iqbal M25.571 Pain in right Infectious Tom Ruggiero ankle and Diseases joints of right foot Office Visit 11/23/2016 4:20p [facility] Teresa Iqbal E11.40 Type 2 Infectious Tom Ruggiero diabetes Diseases mellitus with diabetic neuropathy, unsp R21 Rash and other nonspecific skin eruption Office Visit 11/06/2016 10:40a [facility] Internal Khai E11.621 Type 2 diabetes [facility] Ariella Lam M.D. 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 obstructive [place] pulmonary disease, unspecified R09.02 Hypoxemia K40.40 Unil inguinal hernia, w gangrene, not specified as recurrent E11.8 Type 2 diabetes mellitus with unspecified complications E11.40 Type 2 diabetes mellitus with diabetic neuropathy, unsp Office Visit 10/15/2016 [facility] Xochitl Palmer, K56.69 Other intestinal 12:28p kika Shaffer M.D. obstruction Hospitalists E11.42 Type 2 diabetes mellitus with diabetic polyneuropathy Office Visit 10/14/2016 [facility] Xochitl E11.42 Type 2 diabetes 12:28p kika Shaffer M.D. mellitus with Hospitalists diabetic polyneuropathy K56.69 Other intestinal obstruction Office Visit 10/13/2016 [facility] Gale K56.69 Other intestinal 12:27p Assockika, WOMEN DESIGNER obstruction Hospitalists E13.10 Oth diabetes mellitus with ketoacidosis without coma Office 10/12/2016 [facility] Serafin E11.42 Type 2 diabetes Visit 12:26p kika Shaffer PA mellitus with Hospitalists diabetic polyneuropathy K56.69 Other intestinal obstruction Office Visit 10/12/2016 Surgical Serjio S. K40.30 Unil inguinal 7:00a [facility] MD Keisha hernia, w obst, w/o gangr, not spcf as recur Office Visit 05/15/2015 [facility] Axel Mercado, 599.0 UTI Urinary 8:19a kika Shaffer MSharifDSharif Tract Infection Hospitalists Site Not Spec 250.02 Diabetes Mellitus W/O Compl Type II Or Unspec Type Uncontrol Plan of Treatment Future Appointment(s):11/22/2018 11:20 am - [facility] MD at [facility]12/05/2018 11:30 am - Maddy Thomas RPA-Gregory at [facility]11/24/2018 10:20 am - Gustavo Maldonado NP at [facility] Internal Medicine [facility]11/21/2018 - Maddy Thomas, PARRISH-CE11.621 Type 2 diabetes mellitus with foot ulcerFollow up:2 vkkqsQ41.1 Orthostatic hypotension
[2018-12-08 03:56] VITALS: BP 165/95
== END 2018-12-08 03:57 | disposition home or self-care (01) ==
LOC: ED 22:27
DX: E16.2 Hypoglycemia, unspecified (principal); T68.XXXA Hypothermia, initial encounter; Z87.891 Personal history of nicotine dependence
CPT/HCPCS: 36415; 80053; 85025; 99284

== ENCOUNTER 2019-02-07 09:03 | Day surgery (SDC) | payer OTHER ==
[~2019-02-07 09:03] MED LIST: Acetaminophen TAB* 325 MG PO PRN; Buffered Lidocaine 1% SYRIN* 1 ML/SYRINGE INTRADERM ONE
[2019-02-07] MEDS ORDERED: fentaNYL* 50 MCG/ML 2 ML VIAL (100 MCG VIAL) ONE (09:10)
[2019-02-07] MEDS ORDERED: Midazolam* 1 MG/ML 5 ML VIAL (5 MG) ONE (09:11)
[2019-02-07] MEDS ORDERED: Tropicamide 1% OPTH.SOL* BTL ONE (10:44)
[2019-02-07] MEDS ORDERED: Neomycin/Polymy/Dex OPHTH.OIN* 3.5 GM ONE (10:44)
[2019-02-07] MEDS ORDERED: Ketorolac 0.5% OPHTH (NF) 0.5 % 5 ML BTL ONE (10:44)
[2019-02-07] MEDS ORDERED: Tetracaine 0.5% OPTH.SOL 4 ML* 1 DROP BTL ONE (10:44)
[2019-02-07] MEDS ORDERED: Phenylephrine OPHTH SOL 2.5%* 2 ML ONE (10:44)
[2019-02-07] MEDS ORDERED: Lidocaine 1%* 5 ML VIAL ONE (10:44)
[2019-02-07] MEDS ORDERED: Cyclopentolate 1% OPTH.SOL* 2 ML BTL ONE (10:44)
[2019-02-07 11:02] VITALS: BP 145/65
--- NOTE | 2019-02-07 11:10 | OP ---
DATE OF OPERATION: 02/07/19 - [facility] DATE OF : 69. SURGEON: Dr. Wilber Barone. CANOPY STRINGER: None. ANESTHESIA: Topical with intravenous sedation. PRE-OP DIAGNOSIS: Cataract, left eye. POST-OP DIAGNOSIS: Cataract, left eye. OPERATIVE PROCEDURE: Phacoemulsification and cataract extraction with posterior chamber intraocular lens implant, left eye. COMPLICATIONS: None. BLOOD LOSS: None. DESCRIPTION OF PROCEDURE: The patient was brought to the operating room and received a small amount of intravenous sedation. A drop of Tetracaine was placed in her left eye. She was prepped and draped in the usual sterile fashion for ophthalmic surgery and attention was directed to the left eye where a speculum was placed. A paracentesis was created at the 5 o'clock position and 0.1 cc of 1 percent preservative-free Lidocaine was injected into the anterior chamber followed by DisCoVisc. The eye was digitally stabilized while a 2.75 mm keratome was used to create a triplanar clear corneal incision at the 3 o'clock position. A continuous curvilinear capsulorrhexis was created with a cystotome and Utrata forceps. BSS on a cannula was used to hydrodissect the lens from the capsule. Phacoemulsification was performed in a divide-and- conquer technique to create four fragments which were removed. Residual cortical material was removed with irrigation and aspiration. DisCoVisc was used to inflate the capsular bag and an AU00T0 21.5 diopter lens was folded and inserted into the capsular bag. DisCoVisc was removed using irrigation and aspiration. BSS on a cannula was used to hydrate the corneal stroma and seal the wound. At the end of the case the pupil was round and the lens was centered. The eye was of normal pressure and the wound was water tight. The speculum was removed and topical Maxitrol ointment was placed on the surface of the eye. The eye was closed, patched and shielded and the patient was sent to the recovery room in stable condition with post operative instructions and follow-up appointment given. [id number]/CPS #: [id number] DEWEY
== END 2019-02-07 11:15 | disposition home or self-care (01) ==
LOC: OREAST 09:03
PROVIDERS: ATTEND Ophthalmology
DX: H25.12 Age-related nuclear cataract, left eye (principal); E10.9 Type 1 diabetes mellitus without complications; Z79.4 Long term (current) use of insulin; J44.9 Chronic obstructive pulmonary disease, unspecified; Z99.81 Dependence on supplemental oxygen
CPT/HCPCS: A9270-GY; J2250; J3010; V2632

== ENCOUNTER → 2019-04-25 09:13 | Day surgery (SDC) | payer OTHER ==
[~2019-04-25 09:13] MED LIST changes: +Bupivacaine 0.5%* 50 ML MDV VIAL ONE; +DiMENhydriNATE IV* 50 MG/ML VIAL IV PUSH PRN; +EPHEDrine (Pressors)* 50 MG/ML VIAL ONE; +Famotidine IV* 10 MG/ML 2 ML (20 mg) IV ONE; +Famotidine IV* 10 MG/ML 2 ML (20 mg) ONE; +HYDROmorphone INJ1* 1 MG/ML SYRINGE IV PRN; +Insulin REGULAR(*) 1 UNITS UNIT ONE; +Insulin REGULAR(*) 1 UNITS UNIT SUBCUT ONE; +Ketorolac INJ* 30 MG/ML 1 ML VIAL ONE; +Lactated Ringers 1000 ML Bag* 1,000 ML IV SCH; +Lidocaine 2% PF * 5 ML VIAL ONE; +Lidocaine 2% PF* 10 ML AMP ONE; +Midazolam* 1 MG/ML 5 ML VIAL (5 MG) ONE; +Naloxone* 0.4 MG/ML 1 ML VIAL IV PRN; +Ondansetron INJ* 2 MG/ML VIAL ONE; +Propofol* 10 MG/ML 20 ML BTL ONE; +ceFAZolin 2 GM in NS PREMIX(*) 2 GM/100 ML BAG IVPB ONE; +fentaNYL* 50 MCG/ML 2 ML VIAL (100 MCG VIAL) ONE
[2019-04-25 11:01] LABS: BUN/Creatinine Ratio 24.7 (8-20); Calcium 8.9 mg/dL (8.6-10.3); EGFR African American 73.3 (>60); EGFR Non-African American 60.5 (>60); Potassium 4.6 mmol/L (3.5-5.0)
[2019-04-25 14:01] VITALS: BP 155/90
--- NOTE | 2019-04-25 14:40 | OP ---
Operative Report - Blank - Operative Report Date of Operation: 04/25/19 Note: PATIENT: Lesly Mcgregor DATE OF : 1965 DATE OF SURGERY: 04/25/2019 SURGEON: Pablo Elizabeth MD NONDESTRUCTIVE TESTER: DAREN Jasso, whos assistance was necessary for positioning, retraction, help with instrumentation, and closure. ANESTHESIOLOGIST: Dr. Adams PREOPERATIVE DIAGNOSIS: Left hallux ulcer and infection in the setting of retained hardware from prior 1st MTP fusion with malunion. 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 OPERATION: 1. Left foot irrigation and debridement 2. Removal of deep hardware from left foot 3. Left hallux proximal phalanx bone biopsy ANESTHESIA: LMA IMPLANTS: none TOURNIQUET TIME: Less than 1 hour with a well-padded thigh tourniquet at 250mmHg SPECIMENS: none ESTIMATED BLOOD LOSS: minimal COMPLICATIONS: none STATUS: Stable from the operating room to the recovery room and then home. INDICATIONS FOR PROCEDURE: Lesly had a prior 1st MTP fusion fused with plantarflexion. She has developed a plantar ulcer and hallux infection. I discussed with ID and the patient and we decided to remove the hardware, perform an I&D and take deep bone cultures. We discussed that this wouldnt address her malunion. Both operative and non- operative treatment alternatives were reviewed. Further, the nature and risks of surgery were reviewed in careful detail. Our discussions regarding the risks of surgery included, but were not limited to, persistent or worsening infection , wound problems, nerve injury, neuroma, RSD, persistent symptoms, blood clot, need for further surgery, failure of the surgery, need for amputation, and even the remote chance of catastrophic complication. DESCRIPTION OF PROCEDURE: The patient was seen in the preoperative holding unit and informed written consent was obtained. The appropriate extremity was marked. The patient was then brought to the operating room and carefully positioned on the operating room table. Anesthesia was induced. All bony prominences were padded with great care. A well-padded thigh tourniquet was placed. A chlorhexidine based pre- scrub was performed followed by a betadine prep and drape in standard sterile fashion. A surgical safety pause was then conducted in which we confirmed the appropriate patient, extremity, planned procedure, availability of equipment, indication and administration of prophylactic antibiotics, and DVT prophylaxis in the form of a compression boot on the non-surgical extremity. An Esmark exsanguination limb was performed, avoiding the involved toe. The tourniquet was then inflated. I then utilized to prior dorsal incision over the hallux. This was taken down to the level of the hardware. The hardware was exposed and all of the screws were removed in their entirety. The plate was then removed as well. Fluoroscopy was used to confirm that all the hardware was removed. The fusion appeared nice and solid. I then performed a thorough debridement of any nonviable appearing tissue, sharply with a 15 blade scalpel. This involved the skin, subcutaneous, periosteal, down to the bone. I then took a couple of small pieces of the proximal phalanx with a rongeur, and this was sent for culture. I then performed culture swabs as well as. The wound was then copiously irrigated with sterile saline. The wound was then meticulously closed in layers utilizing 3-0 Monocryl and 3-0 nylon for the skin. A sterile dressing was then applied. The patient was then awakened from anesthesia and transferred to the recovery room in stable condition. There were no complications. All needle and sponge counts were correct at the end of the case. ATTESTATION: I attest I was present and scrubbed and performed the critical portions of the procedure myself. POSTOPERATIVE PLAN: She will be heel weightbearing. Antibiotics will be guided by the infectious disease service. She will follow up in 2 weeks for likely suture removal.
== END | disposition home or self-care (01) ==
LOC: OR 09:13
PROVIDERS: ATTEND Orthopaedic Surgery
DX: L03.116 Cellulitis of left lower limb (principal); E11.621 Type 2 diabetes mellitus with foot ulcer; T84.84XA Pain due to internal orthopedic prosthetic devices, implants and grafts, initial encounter; M79.675 Pain in left toe(s); R06.02 Shortness of breath; F32.9 Major depressive disorder, single episode, unspecified; I10 Essential (primary) hypertension; J44.9 Chronic obstructive pulmonary disease, unspecified; E78.5 Hyperlipidemia, unspecified; F41.9 Anxiety disorder, unspecified; Z88.8 Allergy status to other drugs, medicaments and biological substances; Z91.040 Latex allergy status
CPT/HCPCS: 36415; 80048; 82947; 87070; 87073; 87077; 87186; 87205; 88300; C1776; J0690; J1885; J2001; J2250; J2405; J2704; J3010; J3490

== ENCOUNTER 2019-08-07 13:29 | Inpatient (IN) | payer OTHER ==
--- OUTSIDE RECORDS SUMMARY | 2019-08-07 13:39 | XMS REPORT | Continuity of Care Document ---
:1965 External Reference #:[id number] Author Name Shirley Christensen M.D., FACP (transmitted by agent of provider Peg Perkins) Address [address] [place] [address] [place] [address] Care Team Providers Name Role Phone Zoya Patten MD - Internal Care Team Information Rn Iv Therapy [phone] Medicine Frankie Solis MD - Internal Care Team Information Rn Iv Therapy [phone] Medicine Problems Active Problems Provider Date Chronic obstructive lung disease Khai Lam M.D. Onset: 10/20/2016 Diabetic neuropathy Khai Lam M.D. Onset: 10/20/2016 Hypoxia Khai Lam M.D. Onset: 10/20/2016 Diabetes mellitus Khai Lam M.D. Onset: 10/20/2016 History of drug abuse Khai Lam M.D. Onset: 10/20/2016 Note: crack cocaine - last 2012 Urinary incontinence Khai Lam M.D. Onset: 10/20/2016 Note: stress incontinence Ulcer of heel Khai Lam M.D. Onset: 10/20/2016 Type 2 diabetes mellitus with ulcer Pablo Elizabeth MD Onset: 09/07/2018 Acquired hallux rigidus Pablo Elizabeth MD Onset: 09/07/2018 Type 2 diabetes mellitus with diabetic Pablo Elizabeth MD Onset: 09/07/2018 polyneuropathy Pain due to internal orthopedic prosthetic Pablo Elizabeth MD Onset: 2018 devices, implants and grafts, initial encounter Cellulitis of left lower limb Pablo Elizabeth MD Onset: 04/12/2019 Chronic osteomyelitis of ankle and/or foot Pablo Elizabeth MD Onset: 2018 Social History Type Date Description Comments Sex Unknown Cigarette Use Pack Years - 62 ETOH Use Never used alcohol Recreational Drug Use Former Drug User crack cocaine - last 2012 Tobacco Use Start: Unknown End: Patient is a former quit 01/2019 Unknown smoker Recreational Drug Use Denies Drug Use Smoking Status Reviewed: 08/03/19 Patient is a former quit 01/2019 smoker Exercise Type/Frequency Exercises sporadically clean house Allergies, Adverse Reactions, Alerts Active Allergies Reaction Severity Comments Date Aspirin migraine w/ generic nausea 10/20/2016 Latex break out 10/20/2016 Inactive Allergies NKDA 10/16/2016 Medications Active Medications SIG Qnty Indications Ordering Date Provider Freestyle Yuni 14 use at least 4 [address] MD 2018 Day/[place]/Flash times daily with Monitoring System sensor Device Freestyle Yuni 14 place one sensor 2units E11.[address] MD 2018 Day/Sensor/Flash every 14 days Monitoring System Misc Lancet Device use 4 times daily 150units E11.Naga1 [facility] 1 tablet every 12 10tabs Pablo Clara, 04/25/2019 50mg hours as needed for MD Tablets pain Medical Id Dispense [address] MD 01/23/2019 Plate/Bracelet/Ster Id bracelet for ling Silver diabetes Misc Insulin use with 100units Lucas St MD 12/30/2018 Syringe/0.3ML/30G X short-acting 5/16" insulin before 30G X 5/16" meals; substitution 0.3 ML [facility] okay Glucagen Hypokit rescue agent for 2units E11.6[address] MD 2018 hypoglycemia, for 1mg Solution Rec bystander use only Adriel Contour Blood test blood sugar [address] MD 2018 Glucose Test Strips times daily and prn for insulin pump Strips [facility] Quad Cane Use while 1units L97.529 Gustavo Maldonado NP 11/24/2018 Misc ambulating Advair Diskus 1 puff twice daily. 60units J44.9 Gustavo Maldonado NP 11/24/2018 Rinse mouth after 500-50mcg/Dose use Aerosol Basaglar Kwikpen 40 units twice 15ml [address] MD 11/21/2018 daily if pump fails 100Unit/ML Solution Pen-Inject Blood Pressure Kit Use to test blood 1units Lucas [facility] MD 11/21/2018 pressure 2-3 times Kit a week or when have symptoms. Admelog for use in pump 30ml Lucas St MD 11/18/2018 100Unit/ML Solution Oxygen 2.5 liters at night Gustavo Maldonado NP 11/09/2018 Misc and prn Nebulizer use for albuterol 1units J44.9 Gustavo Maldonado NP 08/15/2018 Device nebulized solution up to 4 times a day. Nebulizer for use 4 times QS J44.9 Gustavo Maldonado NP 08/15/2018 Kit/Tubing/Mouthpie daily as needed ce Kit Ipratropium 1 vial in nebulizer 90units J44.9 Gustavo Maldonado NP 08/15/2018 Hoffman/Albuterol four times a day as Sulfate needed for asthma 0.5-2.5(3)mg/3ML Solution Precision Xtra use 3 times daily 100units E11.[address] MD 2017 Blood Glucose Test for glucose testing Strips Strips Precision Xtra use with 1units E11.[address] MD 06/09/2018 Monitor glucose/ketone Device strips Ventolin HFA 2 puffs by mouth 8units Gustavo Maldonado NP 04/21/2018 four times a day as 108(90Base) mcg/Act needed Aerosol Pen [employer] 12/03" use with lantus 100units Lucas St MD 09/03/2017 subq everyday 31G X 5 mm Misc Unifine Pentips use with 50units Lucas St MD 31G long-acting insulin X 5 mm Misc once daily History Medications Ciprofloxacin HCL Take 1 tab by 6tabs E11.621 Vida Marquis, 07/14/2019 - 250mg mouth every 12 07/21/2019 Tablets hrs for 3 days Doxycycline 1 tab po bid 30tabs Pablo Elizabeth 05/03/2019 - Monohydrate 05/03/2019 100mg Tablets Doxycycline Hyclate 1 tab every 12 30tabs Pablo Elizabeth 05/03/2019 - 100mg hours 07/26/2019 Tablets Cephalexin 1 by mouth 30caps Yohan DSharif 04/27/2019 - 500mg Capsules three times a Tom Ruggiero 05/03/2019 day Sulfamethoxazole/Trime take one 28tabs E11.622 Pablo Clara, 02/24/2019 - thoprim DS tablet twice a 03/17/2019 800-160mg day Tablets Immunizations CPT Code Status Date Vaccine Reaction Lot # [id number] Given 08/03/2019 Influenza Virus Vaccine, shot tolerated well, no [id number] Quadrivalent, Split, immediate reaction Preservative Free Vital Signs Date Vital Result Comment 08/03/2019 1:53pm Height 64 inches 5'4" Weight 176.25 lb Heart Rate 69 /min BP Systolic 173 mmHg BP Diastolic 80 mmHg Body Temperature 97.8 F O2 % BldC Oximetry 96 % BMI (Body Mass Index) 30.2 kg/m2 07/27/2019 3:26pm Height 64 inches 5'4" Weight 172.00 lb w/ shoes Heart Rate 66 /min BP Systolic Sitting 183 mmHg BP Diastolic Sitting 82 mmHg BMI (Body Mass Index) 29.5 kg/m2 Results Test Acquired Date Facility Test Result H/L Range Note Urine Culture And 07/14/2019 [facility] Urine Culture SEE RESULT [address] [place] [address] [phone] Urine Microalbumin 07/14/2019 [facility] Urine 108.[address] Creatinine mg/[place] [address] [phone] Ur Microalbumin (mg/L) > 1500.0 mg/L Urine Microalbumin/Creatinine 1387.9 High <31 CBC Auto 07/14/2019 [facility] White Blood 5.8 10^3/uL Normal 3.5-10.[address] [place] [address] [phone] Red Blood Count 4.37 10^6/uL Normal 3.70-4.87 Hemoglobin 11.7 g/dL Low 12.0-16.0 Hematocrit 36 % Normal 35-47 Mean Corpuscular Volume 82 fL Normal 80-97 Mean Corpuscular Hemoglobin 27 pg Normal 27-31 Mean Corpuscular HGB Conc 32 g/dL Normal 31-36 Red Cell Distribution Width 16 % High 10-15 Platelet Count 297 10^3/uL Normal 150-450 Mean Platelet Volume 8.5 fL Normal 7.4-10.4 Abs Neutrophils 3.6 10^3/uL Normal 1.5-7.7 Abs Lymphocytes 1.6 10^3/uL Normal 1.0-4.8 Abs Monocytes 0.4 10^3/uL Normal 0-0.8 Abs Eosinophils 0.2 10^3/uL Normal 0-0.6 Abs Basophils 0.0 10^3/uL Normal 0-0.2 Abs Nucleated RBC 0.0 10^3/uL Granulocyte % 62.1 % Lymphocyte % 27.3 % Monocyte % 6.5 % Eosinophil % 3.5 % Basophil % 0.6 % Nucleated Red Blood Cells % 0.1 Comp Metabolic 07/14/2019 [facility] Sodium 140 mmol/L Normal 135-145 Panel [address] [place] [address] [phone] Potassium 4.6 mmol/L Normal 3.5-5.0 Chloride 103 mmol/L Normal 101-111 Co2 Carbon Dioxide 32 mmol/L Normal 22-32 Anion Gap 5 mmol/L Normal 2-11 Glucose 266 mg/dL High 70-100 Blood Urea Nitrogen 18 mg/dL Normal 6-24 Creatinine 0.98 mg/dL High 0.51-0.95 BUN/Creatinine Ratio 18.4 Normal 8-20 Calcium 8.8 mg/dL Normal 8.6-10.3 Total Protein 6.2 g/dL Low 6.4-8.9 Albumin 3.3 g/dL Normal 3.2-5.2 Globulin 2.9 g/dL Normal 2-4 Albumin/Globulin Ratio 1.1 Normal 1-3 Total Bilirubin 0.60 mg/dL Normal 0.2-1.0 Alkaline Phosphatase 121 U/L High 34-104 Alt 13 U/L Normal 7-52 Ast 13 U/L Normal 13-39 Egfr Non- 59.6 >60 Egfr 72.1 >60 2 Urinalysis Profile 07/14/2019 [facility] Urine Color Yellow [address] [place] [address] [phone] Urine Appearance Cloudy Urine Specific Ramsay 1.018 Normal 1.010-1.030 Urine pH 5.0 Normal 5-9 Urine Urobilinogen Negative Negative Urine Ketones Negative Negative Urine Protein 3+(>=500 mg/dL) Abnormal Negative Urine Leukocytes Trace Abnormal Negative Urine Blood 1+ Abnormal Negative Urine Nitrite Positive Abnormal Negative Urine Bilirubin Negative Negative Urine Glucose 3+(>=500 mg/dL) Abnormal Negative Urine White Blood Cell 3+(>20/hpf) Abnormal Absent Urine Red Blood Cell 1+(3-5/hpf) Abnormal Absent Urine Bacteria 3+ Abnormal Absent Urine Squamous Epithelial Cell Present Abnormal Absent Urine Hyaline Casts Present Abnormal Absent Laboratory test 07/14/2019 [facility] Hemoglobin A1c 14.9 % High 4.0-5.6 [address] (Glyco HGB) [place] [address] [phone] Basic Metabolic 05/18/2019 [facility] Sodium 140 Normal 135- [address] mmol/[place] [address] [phone] Potassium 4.7 mmol/L Normal 3.5-5.0 Chloride 104 mmol/L Normal 101-111 Co2 Carbon Dioxide 32 mmol/L Normal 22-32 Anion Gap 4 mmol/L Normal 2-11 Glucose 289 mg/dL High 70-100 Blood Urea Nitrogen 23 mg/dL Normal 6-24 Creatinine 1.12 mg/dL High 0.51-0.95 BUN/Creatinine Ratio 20.5 High 8-20 Calcium 9.2 mg/dL Normal 8.6-10.3 Egfr Non- 51.3 >60 Egfr 62.1 >60 4 CBC Auto 05/18/2019 [facility] White Blood 5.7 10^3/uL Normal 3.5-10.[address] [place] [address] [phone] Red Blood Count 4.04 10^6/uL Normal 3.70-4.87 Hemoglobin 10.7 g/dL Low 12.0-16.0 Hematocrit 33 % Low 35-47 Mean Corpuscular Volume 82 fL Normal 80-97 Mean Corpuscular Hemoglobin 27 pg Normal 27-31 Mean Corpuscular HGB Conc 33 g/dL Normal 31-36 Red Cell Distribution Width 15 % Normal 10-15 Platelet Count 289 10^3/uL Normal 150-450 Mean Platelet Volume 7.8 fL Normal 7.4-10.4 Abs Neutrophils 3.7 10^3/uL Normal 1.5-7.7 Abs Lymphocytes 1.4 10^3/uL Normal 1.0-4.8 Abs Monocytes 0.4 10^3/uL Normal 0-0.8 Abs Eosinophils 0.2 10^3/uL Normal 0-0.6 Abs Basophils 0.0 10^3/uL Normal 0-0.2 Abs Nucleated RBC 0.0 10^3/uL Granulocyte % 65.8 % Lymphocyte % 23.9 % Monocyte % 6.3 % Eosinophil % 3.3 % Basophil % 0.7 % Nucleated Red Blood Cells % 0.0 Laboratory test 05/18/2019 [facility] C Reactive 3.00 mg/L Normal <8.[address] Protein [place], [place] [address] [phone] Urine Culture And 05/15/2019 [facility] Urine SEE RESULT [address] [place] [place] [address] [phone] Ua Routine 05/15/2019 [employer]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 [employer] Operator In House Ua Specific 1.025 Ramsay Ua PH 5 Ua Color yellow Ua Appera clear Ua WBC trace Ua Protein 500 Ua Glucose 1000 Ua Ketones negative Ua Bilirubin negative Ua Urobilinogen normal Ua Nitrite negative Ua Occult Blood trace Laboratory test 04/25/2019 [facility] Point of Care 221 mg/dL High 70-100 [address] Glucose [place], [place] [address] [phone] Laboratory test 04/25/2019 [facility] Point of Care 275 mg/dL High 70-100 [address] Glucose [place], [place] [address] [phone] Laboratory test 04/25/2019 [facility] Surgical SEE RESULT [address] Pathology [place]OW [place], [place] [address] [phone] Laboratory test 04/25/2019 [facility] Tissue Culture SEE RESULT [address] & [place] [address] [phone] Wound 04/25/2019 [facility] Wound/Misc SEE RESULT 10 Culture/Sensi [address] [place] [address] Stain [phone] Laboratory test 04/25/2019 [facility] Anaerobic SEE RESULT [address] Culture [place], [place] [address] [phone] Laboratory test 04/25/2019 [facility] Point of Care 264 mg/dL High 70-100 [address] [place] [address] [phone] Basic Metabolic 04/25/2019 [facility] Glucose 426 mg/dL High 70-[address] [place] [address] [phone] Sodium 137 mmol/L Normal 135-145 Potassium 4.6 mmol/L Normal 3.5-5.0 Chloride 104 mmol/L Normal 101-111 Co2 Carbon Dioxide 24 mmol/L Normal 22-32 Anion Gap 9 mmol/L Normal 2-11 Blood Urea Nitrogen 24 mg/dL Normal 6-24 Creatinine 0.97 mg/dL High 0.51-0.95 BUN/Creatinine Ratio 24.7 High 8-20 Calcium 8.9 mg/dL Normal 8.6-10.3 Egfr Non- 60.5 >60 Egfr 73.3 >60 13 Laboratory 04/25/2019 [facility] Glucose 426 High 70-100 test finding [address] Confirmatory mg/[place] [address] [phone] Laboratory 04/25/2019 [facility] Point of Care 424 Critical 70 -100 14 test finding [address] Glucose mg/[place] [address] [phone] Laboratory 02/07/2019 [facility] Point of Care 127 High 70- 100 15 test finding [address] Glucose mg/dL [place], [place] [address] [phone] 1 SEE RESULT BELOW Name: LESLY GILSE : [address]: Vida Marquis MD Acct: [id number] Unit: [id number] AGE: 54 Location: LAB Re07/14/19 SEX: F Status: REG REF SPEC: [id number] ASHLEY: 07/14/19-[address]: Vida Marquis MD REQ: [id number] RECD: 07/14/19 STATUS: COMP _ SOURCE: URINE [facility]: ORDERED: Urine Culture Procedure Result Reported Site Urine Culture Final 07/16/19- 0750 ML Organism 1 ESCHERICHIA COLI Bland Count >100,000 (Many) CFU/ML 1. ESCHERICHIA COLI M.I.C. RX --------- ------ Ampicillin 8 S Cefazolin <=4 S Cefepime <=1 S Ceftriaxone <=1 S Ciprofloxacin <=0.25 S Gentamicin <=1 S Levofloxacin <=0.12 S Meropenem <=0.25 S Nitrofurantoin 32 S Tetracycline <=1 S Pipercillin/Tazobactam <=4 S Trimethoprim/Sulfamethoxazole <=20 S Amoxicillin/Clavulanic Acid <=2 S Aztreonam <=1 S Contact the Microbiology Department for any additional antibiotic reporting. * ML - Main Lab . END OF REPORT DEPARTMENT OF PATHOLOGY, [address] [place] [address] Renaldo Santos M.D. Director [facility] # [id number] 2 Because ethnic data is not always readily [...] 15-29 5 Kidney failure <15 (or dialysis) 3 Therapeutic target for the treatment of diabetes mellitus patients is <7% HBA1C, and in selective patients <6.0%. Please refer to [place] [employer] diabetic care guidelines for further information. 4 Because ethnic data is not always [...] 5 Kidney failure <15 (or dialysis) 5 SEE RESULT BELOW Name: LESLY GILES : [address]: Gustavo Maldonado NP Acct: [id number] Unit: [id number] AGE: 53 Location: [facility] Re05/15/19 SEX: F Status: REG REF SPEC: [id number] ASHLEY: 05/15/[address]: Gustavo Maldonado NP REQ: [id number] RECD: 05/15/19 STATUS: COMP _ SOURCE: URINE SPDESC: ORDERED: Urine Culture COMMENTS: [id number] Urine Source: Random Procedure Result Reported Site Urine Culture Final 05/17/19- 0936 ML No growth of clinically significant organisms * ML - Main Lab . END OF REPORT DEPARTMENT OF PATHOLOGY, [address] [place] [address] Renaldo Santos M.D. Director [facility] # [id number] 6 Traffic Control Operator: [id number] Traffic Control Operator: [id number] 8 SEE RESULT BELOW Name: TISHALESLY L : [address]: Pablo Elizabeth MD Acct: [id number] Unit: [id number] AGE: 53 Location: OR Re04/25/19 SEX: F Status: REG [facility] SPEC: [id number] ASHLEY: 04/25/19- SUBM DR: Pablo Elizabeth MD REQ: [id number] RECD: 04/25/19 STATUS: SOUT _ ORDERED: LEVEL 1 FINAL DIAGNOSIS Great toe, left, hardware removal: Foreign body (orthopedic hardware) (gross diagnosis) PRE-OPERATIVE DIAGNOSIS Left great toe ulcer and infection GROSS DESCRIPTION The specimen is received fresh labeled, Explanted Hardware Left Great Toe, and consists of a 4.5 by up to 1.8 x 0.2 cm convex blue metallic perforated plate. There is an inscription which reads L [id number]. Received separately in the same container are four stellate headed fully threaded purple metallic screws ranging from 1.5 x 0.3 cm to 1.7 x 0.3 cm and two brown stellate headed partially threaded screws measuring 1.8 x 0.2 cm and 3.1 x 0.2 cm. No inscriptions are identified. Per established hospital medical staff protocol, no tissue is submitted. Gross only. Signed by and Reported on: Soraya Soriano MD 04/26/19 1027 END OF REPORT DEPARTMENT OF PATHOLOGY, [address] [place] [address] Renaldo Santos M.D. Director [facility] # [id number] 9 SEE RESULT BELOW Name: LESLY GILES : [address]: Pablo Elizabeth MD Acct: [id number] Unit: [id number] AGE: 53 Location: OR Re04/25/19 SEX: F Status: REG SDC SPEC: [id number] ASHLEY: 04/25/[address]: Pablo Elizabeth MD REQ: [id number] RECD: 04/25/19 STATUS: CORAZON PIZANO DR: Zoya Patten MD _ SOURCE: TISSUE SPDESC:OTHER ORDERED: Tissue Cult/GS, Anaerobic Cult Procedure Result Reported Site Tissue Gram Stain Final 04/25/19- 1452 ML 1+ Epithelial Cells No Neutrophils Observed No Organisms Seen Preparation By Cytospin Smear Tissue Culture Final 04/29/19- 1122 ML Beta Lactamase Negative Organism 1 STAPHYLOCOCCUS AUREUS Quantity 1+ Organism 2 STAPHYLOCOCCUS EPIDERMIDIS Quantity 1+ 1. STAPHYLOCOCCUS AUREUS M.I.C. RX --------- ------ Penicillin 0.12 S Clindamycin <=0.25 S Erythromycin <=0.25 S Gentamicin <=0.5 S Linezolid 2 S Oxacillin <=0.25 S * Quinupristin/Dalfopristin <=0.25 S Rifampin <=0.5 S Tetracycline <=1 S Doxycycline - Deduced S * Minocycline - Deduced S Trimethoprim/Sulfamethoxazole <=10 S CONTINUED ON NEXT PAGE DEPARTMENT OF PATHOLOGY, [address] [place] [address] Renaldo Santos M.D. Director [facility] # [id number] Patient: LESLY GILES [id number] (Continued) Specimen: [id number] Collected: 04/25/198 Received: 04/25/19-1247 (Continued) Procedure Result Reported Site Tissue Culture Final (continued) 04/29/191121 1. STAPHYLOCOCCUS AUREUS (continued) M.I.C. RX --------- ------ Vancomycin 1 S Imipenem-Deduced S * Ampicillin/Sulbactam-Deduced S Cefazolin-Deduced S 2. STAPHYLOCOCCUS EPIDERMIDIS M.I.C. RX --------- ------ Penicillin >=0.5 R Clindamycin >=8 R Erythromycin >=8 R Gentamicin <=0.5 S Linezolid 1 S Oxacillin >=4 R * Quinupristin/Dalfopristin <=0.25 S Rifampin <=0.5 S Tetracycline 2 S Doxycycline - Deduced S * Minocycline - Deduced S Tigecycline 0.25 S Vancomycin 2 S Imipenem-Deduced R * Ampicillin/Sulbactam-Deduced R Cefazolin-Deduced R * These antibiotics are not available in the [facility] Formulary Contact the Microbiology Department for any additional antibiotic reporting. Anaerobic Culture Final 04/29/191121 ML Anaerobe Culture No Anaerobes Day 4 * ML - Main Lab . END OF REPORT DEPARTMENT OF PATHOLOGY, [address] [place] [address] Renaldo Santos M.D. Director [facility] # [id number] 10 SEE RESULT BELOW Name: LESLY GILES : [address]: Pablo Elizabeth MD Acct: [id number] Unit: [id number] AGE: 53 Location: OR Re04/25/19 SEX: F Status: REG SDC SPEC: [id number] ASHLEY: 04/25/[address]: Pablo Elizabeth MD REQ: [id number] RECD: 04/25/19 STATUS: CORAZON PIZANO DR: Zoya Patten MD _ SOURCE: TOE SPDESC:LEFT ORDERED: Culture Stain QUERIES: Specimen Description LEFT GREAT TOE WOUND Procedure Result Reported Site Wound/Misc Gram Stain Final 04/25/19- 1240 ML 1+ Epithelial Cells No Neutrophils Observed No Organisms Seen Wound/Misc Culture Final 04/29/19- 1119 ML Organism 1 STAPHYLOCOCCUS AUREUS Quantity 1+ Organism 2 NORMAL EB Quantity 1+ 1. STAPHYLOCOCCUS AUREUS M.I.C. RX --------- ------ Penicillin 0.06 S Clindamycin <=0.25 S Erythromycin <=0.25 S Gentamicin <=0.5 S Linezolid 2 S Oxacillin <=0.25 S * Quinupristin/Dalfopristin <=0.25 S Rifampin <=0.5 S Tetracycline <=1 S Doxycycline - Deduced S * Minocycline - Deduced S Trimethoprim/Sulfamethoxazole <=10 S Vancomycin 1 S Imipenem-Deduced S * Ampicillin/Sulbactam-Deduced S CONTINUED ON NEXT PAGE DEPARTMENT OF PATHOLOGY, [address] [place] [address] Renaldo Santos M.D. Director [facility] # [id number] Patient: LESLY GILES [id number] (Continued) Specimen: [id number] Collected: 04/25/19 Received: 04/25/19 (Continued) Procedure Result Reported Site Wound/Misc Culture Final (continued) 04/29/19- 1119 1. STAPHYLOCOCCUS AUREUS (continued) M.I.C. RX --------- ------ Cefazolin-Deduced S * These antibiotics are not available in the [facility] Formulary Contact the Microbiology Department for any additional antibiotic reporting. * [facility] - [facility] Lab . END OF REPORT DEPARTMENT OF PATHOLOGY, [address] [place] [address] Renaldo Santos M.D. Director [facility] # [id number] 11 SEE RESULT BELOW Name: YOUTT,LESLY L : [address]: Pablo Elizabeth MD Acct: [id number] Unit: [id number] AGE: 53 Location: OR Re04/25/19 SEX: F Status: REG SDC SPEC: [id number] ASHLEY: 04/25/[address]: Pablo Elizabeth MD REQ: [id number] RECD: 04/25/19 STATUS: CORAZON PIZANO DR: Zoya Patten MD _ SOURCE: WOUND SPDESC:LEFT ORDERED: Anaerobic Cult Procedure Result Reported Site Anaerobic Culture Final 04/29/19- 1119 ML Anaerobe Culture No Anaerobes Day 4 * ML - Main Lab . END OF REPORT DEPARTMENT OF PATHOLOGY, [address] [place] [address] Reanldo Santos M.D. Director [facility] # [id number] 12 Traffic Control Operator: [id number] Because ethnic data is not always readily [...] 15-29 5 Kidney failure <15 (or dialysis) 14 Traffic Control Operator: [id number] Traffic Control Operator: [id number] Procedures Date Code Description Status 07/14/2019 07483 EKG Tracing & Interpretation Completed 06/08/2019 254453941 Diabetic Retinal Eye Exam Completed 04/25/2019 04016 Excise Biopsy Bone Deep Completed 04/25/2019 29777 Excise Biopsy Bone Deep Completed 04/25/2019 99502 Debridement Tissue/Muscle/Bone Completed 04/25/2019 61838 Debridement Tissue/Muscle/Bone Completed 03/16/2019 100630819 Diabetic Retinal Eye Exam Completed 02/24/2019 59093 Glucose Monitoring Interpetation And Report Completed 09/22/2018 024119197 Diabetic Retinal Eye Exam Completed 11/02/2017 121353142 Diabetic Retinal Eye Exam Completed 06/18/2017 838255478 Diabetic Retinal Eye Exam Completed Medical Devices Description No Information Available Encounters Type Date Location Provider Dx Diagnosis Office Visit 05/29/2019 [facility] Pablo Amaury Elizabeth.672 Other chronic 11:30a at [place] osteomyelitis, left ankle and foot E11.621 Type 2 diabetes mellitus with foot ulcer Z47.89 Encounter for other orthopedic aftercare Office Visit 05/17/2019 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 [facility] L97.529 Non-pressure 10:45a [facility] w [facility] severity E11.621 Type 2 diabetes mellitus with foot ulcer Office Visit 03/07/2019 1:45p [facility] Lulú Ferreira E11.621 Type 2 at [place] RPA-C diabetes mellitus with foot ulcer L97.529 Non-pressure chronic ulcer oth prt left foot w unsp severity Office Visit 03/01/2019 [facility] [place], L97.529 Non-pressure 1:30p [facility] w unsp severity E11.621 Type 2 diabetes mellitus with foot ulcer Office Visit 02/24/2019 9:30a [facility] Maddy Z79.4 snf Endocrinology of [employer] Operator 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, RPA-C (current) use of insulin L97.529 Non-pressure chronic ulcer ot prt left foot w unsp severity E11.621 Type 2 diabetes mellitus with foot ulcer Assessments Date Code Description Provider 08/03/2019 R35.0 Frequency of micturition Shirley Christensen M.D., FACP 08/03/2019 S00.01xA Abrasion of scalp, initial Shirley Christensen M.D., FACP encounter 08/03/2019 E11.69 Type 2 diabetes mellitus with other Shirley Christensen M.D., FACP specified complication 08/03/2019 Z23 Encounter for immunization Shirley Christensen M.D., FACP 07/27/2019 E11.621 Type 2 diabetes mellitus with foot [facility] MD ulcer 07/14/2019 Z01.818 Encounter for other preprocedural Vida Marquis MD examination 07/14/2019 E11.621 Type 2 diabetes mellitus with foot Vdia Marquis MD ulcer 06/12/2019 M86.672 Other chronic osteomyelitis, left Pablo Elizabeth MD ankle and foot 06/12/2019 E11.621 Type 2 diabetes mellitus with foot Pablo Elizabeth MD ulcer 06/12/2019 Z98.890 Other specified postprocedural Pablo Elizabeth MD states 05/29/2019 M86.672 Other chronic osteomyelitis, left Pablo Elizabeth MD ankle and foot 05/29/2019 E11.621 Type 2 diabetes mellitus with foot Pablo Elizabeth MD ulcer 05/29/2019 Z47.89 Encounter for other orthopedic Pablo Elizabeth MD aftercare 05/17/2019 M86.672 Other chronic osteomyelitis, left Kala Marks NP ankle and foot 05/17/2019 E11.621 Type 2 diabetes mellitus with foot Kala Marks NP ulcer 05/17/2019 Z79.2 snf (current) use of Kala Marks NP antibiotics 05/17/2019 E11.69 Type 2 diabetes mellitus with other Kala Marks NP specified complication 05/17/2019 L97.529 Non-pressure chronic ulcer of other Kala Marks NP part of left foot with unspecified severity 05/15/2019 R35.0 Frequency of micturition Gustavo Maldonado NP 05/15/2019 M54.5 Low back pain Gustavo Maldonado NP 05/15/2019 J44.9 Chronic obstructive pulmonary Gustavo Maldonado NP disease, unspecified 05/15/2019 I10 Essential (primary) hypertension Gustavo Maldonado NP 05/12/2019 E11.621 Type 2 diabetes mellitus with foot Pablo Elizabeth MD ulcer 05/12/2019 M86.672 Other chronic osteomyelitis, left Pablo Elizabeth MD ankle and foot 05/12/2019 Z47.89 Encounter for other orthopedic Pablo Elizabeth MD aftercare 05/03/2019 E11.621 Type 2 diabetes mellitus with foot Pablo Elizabeth MD ulcer 05/03/2019 M86.672 Other chronic osteomyelitis, left Pablo Elizabeth MD ankle and foot 05/03/2019 Z98.890 Other specified postprocedural Pablo Elizabeth MD states 04/25/2019 E11.621 Type 2 diabetes mellitus with foot [facility] ulcer 04/25/2019 E11.621 Type 2 diabetes mellitus with foot Pablo Elizabeth MD ulcer 04/25/2019 T84.84xA Pain due to internal orthopedic [facility] prosthetic devices, implants 04/25/2019 T84.84xA Pain due to internal orthopedic Pablo Elizabeth MD prosthetic devices, implants 04/25/2019 M86.672 Other chronic osteomyelitis, left [facility] ankle and foot 04/25/2019 M86.672 Other chronic osteomyelitis, left Pablo Elizabeth MD ankle and foot 04/12/2019 L97.529 Non-pressure chronic ulcer oth prt Pablo Elizabeth MD left foot w unsp severity 04/12/2019 E11.621 Type 2 diabetes mellitus with foot Pablo Elizabeth MD ulcer 04/12/2019 T84.84xA Pain due to internal orthopedic Pablo Elizabeth MD prosthetic devices, implants 04/12/2019 L03.116 Cellulitis of left lower limb Pablo Elizabeth MD 03/20/2019 E11.621 Type 2 diabetes mellitus with foot Yohan Ruggiero M.D. ulcer 03/20/2019 L97.521 Non-prs chronic ulcer oth prt l Yohan Ruggiero M.D. foot limited to brkdwn skin 03/15/2019 E11.621 Type 2 diabetes mellitus with foot [facility] MD ulcer 03/15/2019 L97.529 Non-pressure chronic ulcer of other Lucas St MD part of left foot with u 03/15/2019 Z79.4 snf (current) use of insulin [facility] MD 03/13/2019 L97.529 Non-pressure chronic ulcer oth prt Pablo Elizabeth MD left foot w unsp severity 03/13/2019 E11.621 Type 2 diabetes mellitus with foot Pablo Elizabeth MD ulcer 03/07/2019 E11.621 Type 2 diabetes mellitus with foot Lulú Ferreira RPA-Gregory ulcer 03/07/2019 L97.529 Non-pressure chronic ulcer of other Lulú Ferreira RPA-C part of left foot with u 03/01/2019 L97.529 Non-pressure chronic ulcer of astrid Elizabeth MD part of left foot with u 03/01/2019 E11.621 Type 2 diabetes mellitus with foot Pablo Elizabeth MD ulcer 02/24/2019 L97.529 Non-pressure chronic ulcer oth prt Maddy Marker, RPA-C left foot w unsp severity 02/24/2019 Z79.4 snf (current) use of insulin Maddy Marker, RPA-C 02/24/2019 E11.621 Type 2 diabetes mellitus with foot Maddy Marker, RPA-C ulcer Plan of Treatment Future Appointment(s):08/08/2019 10:40 am - Gustavo Maldonado [facility] at [facility] at [facility]08/07/2019 1:15 pm - Pablo Elizabeth MD at [facility] at [facility]/03/2019 - Shirley Christensen M.D., FACPR35.0 Frequency of micturitionNew Labs:Urinalysis Profile, Ordered: 08/03/19Comments:URINARY FREQUENCY:I suspect that your symptoms are due to your sugars being out of control more so than an infection. I will contact you with the results of today 's urinalysis.S00.01xA Abrasion of scalp, initial encounterComments:SCALP SYMPTOMS:I do not see any evidence of an allergic reaction or active lice infestation. I do think that the areas of small bumps are from scratching. You might benefit from a shampoo with selsun.Do your best not to touch your scalp. Try wearing a hat.Follow up:As needed.E11.69 Type 2 diabetes mellitus with other specified complicationComments:DIABETES:You are not at goal, but I understand that you are being managed by an vice president for philanthropy and that there have been changes made to your regimen.You have a follow up with Dr. St in August.Follow up:3 months, 20 minZ23 Encounter for immunization Goals 08/03/2019 - Shirley Christensen M.D., FACPE11.69 Type 2 diabetes mellitus with other specified complicationGoal Hemoglobin A1c is less than 7.0%. Goal Blood pressure is less than 130/85. Goal LDL (bad cholesterol) is less than 100. Functional Status Description No Information Available Mental Status Description No Information Available Referrals Refer to Dr Reason for Referral Status Appt Eusebio Childers MD Uncontrolled Diabetes on Insulin Created [address] [place] [address] [phone] [facility] left foot ulcer Sent [address] [place] [address] [phone] Yohan Ruggiero MD chronic osteomyelitis left foot Sent 05/11/[address] [place] [address] [place] [address] [phone] Yohan Ruggiero MD left great toe infection Sent 03/20/[address] [place] [address] [place] [address] [phone] [facility] left great toe ulcer Created [address] [place] [address] [phone] W[facility] Clinic chronic plantar foot ulcer Sent [address] [place], [place] [id number] [phone] Pain Clinic chronic pain left foot Sent 04/11/[address] [place] [address] [phone] Pablo Elizabeth MD Chronic left foot ulcer, indwelling Patient Notified 07/2019 HW, consideration of HW removal? [address] [place], [place] [id number] [phone]
--- OUTSIDE RECORDS SUMMARY | 2019-08-07 13:39 | XMS REPORT | Continuity of Care Document ---
:1965 External Reference #:[id number] Author Name Pablo Elizabeth MD (transmitted by agent of provider Daphne Goff) Address [address] [place] [address] Care Team Providers Name Role Phone Zoya Patten MD - Internal Care Team Information Senior Product Development Engineer Medicine Frankie Solis MD - Internal Care Team Information Senior Product Development Engineer [phone] Medicine Problems Active Problems Provider Date Chronic [...] Use Denies Drug Use Smoking Status Reviewed: 08/07/19 Patient is a former quit 01/2019 smoker Exercise Type/Frequency Exercises sporadically clean house Allergies, Adverse Reactions, Alerts Active Allergies Reaction Severity Comments Date Aspirin migraine w/ generic nausea 10/20/2016 Latex break out 10/20/2016 Inactive Allergies NKDA 10/16/2016 Medications Active Medications SIG Qnty Indications Ordering Date Provider Ciprofloxacin HCL 1 by mouth twice 6tabs Jazmin Varn, 08/07/2019 daily N.P. 250mg Tablets Freestyle [place] 14 use at least 4 [address] MD 2018 Day/[place]/Flash times daily with Monitoring System sensor Device Freestyle [place] 14 place one sensor 2units E11.Naga1 Lucas [address] MD 2018 Day/Sensor/Flash every 14 days Monitoring System Misc Lancet Device use 4 times daily 150units E11.Naga1 [facility] 2018 [facility] Tramadol HCL 1 tablet every 12 10tabs Pablo Clara, 04/25/2019 50mg hours as needed for Tablets pain Medical Id Dispense [address] MD 01/23/2019 Plate/Bracelet/Sterl Id bracelet for ing Silver diabetes Misc Insulin use with 100units Lucas St MD 12/30/2018 Syringe/0.3ML/30G X short-acting 5/16" insulin before 30G X 5/16" 0.3 meals; substitution ML [facility] [place] Glucagen Hypokit rescue agent for 2units E11.Naga1 Lucas [address] MD 2018 1mg hypoglycemia, for Solution Rec bystander use only Adriel Contour [...] Aerosol Basaglar Kwikpen 40 units twice 15ml Lucas [facility] MD 11/21/2018 daily if pump fails [...] times QS J44.9 Gustavo Maldonado NP 08/15/2018 Kit/Tubing/Mouthpiec daily as needed e Kit Ipratropium 1 vial in nebulizer 90units J44.9 Gustavo Maldonado NP 08/15/2018 [place]/Albuterol four times a day as Sulfate needed for asthma 0.5-2.5(3)mg/3ML Solution Precision Xtra Blood use 3 times daily 100units E11.[address] MD Glucose Test Strips for glucose testing Strips Precision Xtra use with 1units E11.[address] MD 06/09/2018 Monitor glucose/ketone Device strips Ventolin HFA 2 puffs by mouth 8units Gustavo Maldonado NP 04/21/2018 four times a day as 108(90Base) mcg/Act needed Aerosol Pen [place] 12/03" use with lantus 100units Lucas St MD 09/03/2017 31G subq everyday X 5 mm Misc Unifine Pentips use with 50units Lucas St MD 31G X long-acting insulin 5 mm Misc once daily History Medications Ciprofloxacin HCL Take 1 tab by 6tabs E11.621 Vida Marquis, 07/14/2019 - 250mg mouth every 12 07/21/2019 Tablets hrs for 3 days Doxycycline 1 tab po bid 30tabs Pablo Elizabeth, 05/03/2019 - Monohydrate 05/03/2019 100mg Tablets Doxycycline Hyclate 1 tab every 12 30tabs Pablo Elizabeth 05/03/2019 - 100mg hours 07/26/2019 Tablets Cephalexin 1 by mouth 30caps Yohan DSharif 04/27/2019 - 500mg Capsules three times a Tom Ruggiero 05/03/2019 day Sulfamethoxazole/Trime take one 28tabs E11.622 Pablo Elizabeth 02/24/2019 - thoprim DS tablet twice a 03/17/2019 800-160mg day Tablets Immunizations CPT Code Status Date Vaccine Reaction Lot # [id number] Given 08/03/2019 Influenza Virus Vaccine, shot tolerated well, no [id number] Quadrivalent, Split, immediate reaction Preservative Free Vital Signs Date Vital Result Comment 08/07/2019 12:55pm Height 64 inches 5'4" Weight 170.00 lb Heart Rate 68 /min BP Systolic 160 mmHg BP Diastolic 68 mmHg BMI (Body Mass Index) 29.2 kg/m2 08/03/2019 1:53pm Height 64 inches 5'4" Weight 176.25 lb Heart Rate 69 /min BP Systolic 173 mmHg BP Diastolic 80 mmHg Body Temperature 97.8 F O2 % BldC Oximetry 96 % BMI (Body Mass Index) 30.2 kg/m2 Results Test Acquired Date Facility Test Result H/L Range Note Urinalysis Profile 08/03/2019 [facility] Urine Color Yellow [address] [place] [address] [phone] Urine Appearance Cloudy Urine Specific [place] 1.016 Normal 1.010-1.030 Urine pH 7.0 Normal 5-9 Urine Urobilinogen Negative Negative Urine Ketones Negative Negative Urine Protein 3+(>=500 mg/dL) Abnormal Negative Urine Leukocytes Negative Negative Urine Blood Negative Negative Urine Nitrite Positive Abnormal Negative Urine Bilirubin Negative Negative Urine Glucose 1+(50 mg/dL) Abnormal Negative Urine White Blood Cell 2+(11-20/hpf) Abnormal Absent Urine Red Blood Cell 2+(6-10/hpf) Abnormal Absent Urine Bacteria 1+ Abnormal Absent Urine Squamous Epithelial Cell Present Abnormal Absent Urine Culture And 08/03/2019 [facility] Urine Culture SEE RESULT [address] [place] [address] [phone] Urine Culture And 07/14/2019 [facility] Urine Culture SEE RESULT [address] [place] [address] [phone] Urine Microalbumin 07/14/2019 [facility] Urine Creatinine 108.07 mg/dL Random [address] [place] [address] [phone] Ur Microalbumin (mg/L) > 1500.0 mg/L Urine Microalbumin/Creatinine 1387.9 High <31 CBC Auto 07/14/2019 [facility] White Blood 5.8 10^3/uL Normal 3.5-10.[address] [place] [address] [phone] Red Blood Count 4.37 10^6/uL Normal 3.70-4.87 [...] Blood Cells % 0.1 Comp Metabolic 07/14/2019 [facility] Sodium 140 mmol/L Normal 135-[address] [place] [address] [phone] Potassium 4.6 mmol/L Normal 3.5-5.0 Chloride 103 [...] Egfr Non- 59.6 >60 Egfr 72.1 >60 3 Urinalysis Profile 07/14/2019 [facility] Urine Color Yellow [address] [place] [address] [phone] Urine Appearance Cloudy Urine Specific [place] 1.018 Normal 1.010-1.030 Urine pH 5.0 Normal [...] Casts Present Abnormal Absent Laboratory test 07/14/2019 [facility] Hemoglobin A1c 14.9 % High 4.0-5.[address] (Glyco HGB) [place] [address] [phone] Basic Metabolic 05/18/2019 [facility] Sodium 140 Normal 135- [address] mmol/[place] [address] [phone] Potassium 4.7 mmol/L Normal 3.5-5.0 Chloride 104 mmol/L Normal 101-111 Co2 Carbon Dioxide 32 mmol/L Normal 22-32 Anion Gap 4 mmol/L Normal 2-11 Glucose 289 mg/dL High 70-100 Blood Urea Nitrogen 23 mg/dL Normal 6-24 Creatinine 1.12 mg/dL High 0.51-0.95 BUN/Creatinine Ratio 20.5 High 8-20 Calcium 9.2 mg/dL Normal 8.6-10.3 Egfr Non- 51.3 >60 Egfr 62.1 >60 5 CBC Auto 05/18/2019 [facility] White Blood 5.7 10^3/uL Normal 3.5-10.[address] [place] [address] [phone] Red Blood Count 4.04 10^6/uL Normal 3.70-4.87 [...] Blood Cells % 0.0 Laboratory test 05/18/2019 [facility] C Reactive 3.00 mg/L Normal <8.[address] [place] [address] [phone] Urine Culture And 05/15/2019 [facility] Urine SEE RESULT [address] [place] [address] [phone] Ua Routine 05/15/2019 [facility] Ua Specific 1.025 [place] Ua PH 5 Ua Color yellow Ua Appera clear Ua WBC trace Ua Protein 500 Ua Glucose 1000 Ua Ketones negative Ua Bilirubin negative Ua Urobilinogen normal Ua Nitrite negative Ua Occult Blood trace Laboratory test 04/25/2019 [facility] Point of Care 221 mg/dL High 70-100 [address] [place] [address] [phone] Laboratory test 04/25/2019 [facility] Point of Care 275 mg/dL High 70-100 [address] [place] [address] [phone] Laboratory test 04/25/2019 [facility] Surgical SEE RESULT [address] Pathology BELOW [place], [place] [id number] [phone] Laboratory test 04/25/2019 [facility] Tissue Culture SEE RESULT [address] & Sensitiv BELOW [place], [place] [address] [phone] Wound 04/25/2019 [facility] Wound/Misc SEE RESULT 11 Culture/Sensi [address] [place] [address] Stain [phone] Laboratory test 04/25/2019 [facility] Anaerobic SEE RESULT [address] [place] [address] [phone] Laboratory test 04/25/2019 [facility] Point of Care 264 mg/dL High 70-100 [address] Glucose [place], [place] [address] [phone] Basic Metabolic 04/25/2019 [facility] Glucose 426 mg/dL High 70-[address] [place] [address] [phone] Sodium 137 mmol/L Normal 135-145 Potassium 4.6 mmol/L Normal 3.5-5.0 Chloride 104 mmol/L Normal 101-111 Co2 Carbon Dioxide 24 mmol/L Normal 22-32 Anion Gap 9 mmol/L Normal 2-11 Blood Urea Nitrogen 24 mg/dL Normal 6-24 Creatinine 0.97 mg/dL High 0.51-0.95 BUN/Creatinine Ratio 24.7 High 8-20 Calcium 8.9 mg/dL Normal 8.6-10.3 Egfr Non- 60.5 >60 Egfr 73.3 >60 14 Laboratory 04/25/2019 [facility] Glucose 426 High 70-100 test finding [address] Confirmatory mg/dL [place], [place] [address] [phone] Laboratory 04/25/2019 [facility] Point of Care 424 Critical 70 -100 15 test finding [address] Glucose mg/dL high [place], [place] [address] [phone] Laboratory 02/07/2019 [facility] Point of Care 127 High 70- 100 16 test finding [address] Glucose mg/[place] [address] [phone] 1 SEE RESULT BELOW Name: LESLY GILES : [address]: Shirley Christensen MD Acct: [id number] Unit: [id number] AGE: 54 Location: [facility] Re08/03/19 SEX: F Status: REG REF SPEC: [id number] ASHLEY: 08/03/19-[address]: Shirley Christensen MD REQ: [id number] RECD: 08/03/19 STATUS:COMP _ SOURCE: URINE SPDESC: ORDERED: Urine Culture Procedure Result Reported Site Urine Culture Final 08/05/19- 35 ML Organism 1 ESCHERICHIA COLI [place] Count >100,000 (Many) CFU/ML 1. ESCHERICHIA COLI [...] . END OF REPORT DEPARTMENT OF PATHOLOGY, [address] [place] [address] Renaldo Santos M.D. Director [facility] # [id number] 2 SEE RESULT BELOW Name: LESLY GILES Jose : [address]: Vida Marquis MD Acct: [id number] Unit: [id number] AGE: 54 Location: [facility] Re07/14/19 SEX: F Status: REG REF SPEC: [id number] ASHLEY: 07/14/[address]: Vida Marquis MD REQ: [id number] RECD: 07/14/19 STATUS: COMP _ SOURCE: URINE SPDESC: ORDERED: Urine Culture Procedure Result Reported Site Urine Culture Final 07/16/19- 0750 ML Organism 1 ESCHERICHIA COLI [place] Count >100,000 (Many) CFU/ML 1. ESCHERICHIA COLI [...] . END OF REPORT DEPARTMENT OF PATHOLOGY, [address] [place] [address] Renaldo Santos M.D. Director [facility] # [id number] 3 Because ethnic data is not always [...] 5 Kidney failure <15 (or dialysis) 4 Therapeutic target for the treatment of diabetes mellitus patients is <7% HBA1C, and in selective patients <6.0%. Please refer to [place] [employer] diabetic care guidelines for further information. 5 Because ethnic data is not always readily [...] 15-29 5 Kidney failure <15 (or dialysis) 6 SEE RESULT BELOW Name: LESLY GILES : [address]: Gustavo Maldonado NP Acct: [id number] Unit: [id number] AGE: 53 Location: [facility] Re05/15/19 SEX: F Status: REG REF SPEC: [id number] ASHLEY: 05/15/[address] [facility] [address]: Gustavo Maldonado NP REQ: [id number] RECD: 05/15/19 STATUS: COMP _ SOURCE: URINE SPDESC: ORDERED: Urine Culture COMMENTS: [id number] Urine Source: Random Procedure Result Reported Site Urine Culture Final 05/17/19- 0936 ML No growth of clinically significant organisms * - Main Lab . END OF REPORT DEPARTMENT OF PATHOLOGY, [address] [place] [address] Renaldo Santos M.D. Director [facility] # [id number] Deputy County Attorney: [id number] Deputy County Attorney: [id number] SEE RESULT BELOW Name: LESLY GILES Jose : [address]: Pablo Elizabeth MD Acct: [id number] Unit: [id number] AGE: 53 Location: [place] Re04/25/19 SEX: F Status: [facility] SPEC: [id number] ASHLEY: 04/25/19- SUBM DR: Pablo Elizabeth MD REQ: [id number] RECD: 04/25/19 STATUS: SOUT _ ORDERED: LEVEL [...] There is an inscription which reads [id number]. Received separately in the [...] 1027 END OF REPORT DEPARTMENT OF PATHOLOGY, [address] [place] [address] Renaldo Santos M.D. Director [facility] # [id number] 10 SEE RESULT BELOW Name: LESLY GILES Jose : [address]: Pablo Elizabeth MD Acct: [id number] Unit: [id number] AGE: 53 Location: [place] Re04/25/19 SEX: F Status: REG SDC SPEC: [id number] ASHLEY: 04/25/[address]: Pablo Elizabeth MD REQ: [id number] RECD: 04/25/19 STATUS: CORAZON PIZANO DR: Zoya [...] CONTINUED ON NEXT PAGE DEPARTMENT OF PATHOLOGY, [address] [place] [address] Renaldo Santos M.D. Director [facility] # [id number] Patient: TISHALESLY L [id number] (Continued) Specimen: [id number] Collected: 04/25/19 Received: 04/25/19 (Continued) Procedure Result Reported Site Tissue Culture [...] These antibiotics are not available in the [facility] Formulary Contact the Microbiology Department for any additional antibiotic reporting. Anaerobic Culture Final 04/29/191121 ML Anaerobe Culture No Anaerobes Day 4 * ML - Main Lab . END OF REPORT DEPARTMENT OF PATHOLOGY, [address] [place] [address] Renaldo Santos M.D. Director [facility] # [id number] 11 SEE RESULT BELOW Name: LESLY GILES : [address]: Pablo Elizabeth MD Acct: [id number] Unit: [id number] AGE: 53 Location: [place] Re04/25/19 SEX: F Status: REG SDC SPEC: [id number] ASHLEY: 04/25/[address]: Pablo Elizabeth MD REQ: [id number] RECD: 04/25/19 STATUS: CORAZON PIZANO DR: Zoya [...] CONTINUED ON NEXT PAGE DEPARTMENT OF PATHOLOGY, [address] [place] [address] Renaldo Santos M.D. Director [facility] # [id number] Patient: LESLY GILES [id number] (Continued) Specimen: [id number] Collected: 04/25/19 Received: 04/25/19 (Continued) Procedure Result Reported Site Wound/Misc Culture Final (continued) 04/29/19- 1119 1. STAPHYLOCOCCUS AUREUS (continued) M.I.C. RX --------- ------ Cefazolin-Deduced S * These antibiotics are not available in the [facility] Formulary Contact the Microbiology Department for any additional antibiotic reporting. * ML - [facility] . END OF REPORT DEPARTMENT OF PATHOLOGY, [address] [place] [address] Renaldo Santos M.D. Director [facility] # [id number] 12 SEE RESULT BELOW Name: LESLY GILES : [address]: Pablo Elizabeth MD Acct: [id number] Unit: [id number] AGE: 53 Location: [place] Re04/25/19 SEX: F Status: REG SDC SPEC: [id number] ASHLEY: 04/25/[address]: Pablo Elizabeth MD REQ: [id number] RECD: 04/25/19 STATUS: CORAZON PIZANO DR: Zoya Patten MD _ SOURCE: WOUND SPDESC:LEFT ORDERED: Anaerobic Cult Procedure Result Reported Site Anaerobic Culture Final 04/29/19- 1119 ML Anaerobe Culture No Anaerobes Day 4 * ML - Main Lab . END OF REPORT DEPARTMENT OF PATHOLOGY, [address] [place] [address] Renaldo Santos M.D. Director [facility] # [id number] 13 Deputy County Attorney: [id number] 14 Because ethnic data is not always [...] 5 Kidney failure <15 (or dialysis) 15 Deputy County Attorney: [id number] Deputy County Attorney: [id number] Procedures Date Code Description Status 07/14/2019 91167 EKG Tracing & Interpretation Completed 06/08/2019 452700370 Diabetic Retinal Eye Exam Completed 04/25/2019 19621 Excise Biopsy Bone Deep Completed 04/25/2019 78072 Excise Biopsy Bone Deep Completed 04/25/2019 45261 Debridement Tissue/Muscle/Bone Completed 04/25/2019 96990 Debridement Tissue/Muscle/Bone Completed 03/16/2019 489011325 Diabetic Retinal Eye Exam Completed 02/24/2019 68591 Glucose Monitoring Interpetation And Report Completed 09/22/2018 520264197 Diabetic Retinal Eye Exam Completed 11/02/2017 352655233 Diabetic Retinal Eye Exam Completed 06/18/2017 624480081 Diabetic Retinal Eye Exam Completed Medical Devices Description No Information Available Encounters Type Date Location Provider Dx Diagnosis Office Visit 05/29/2019 [facility] Altaf White86.672 Other chronic 11:30a at [place] osteomyelitis, left ankle and foot E11.621 Type 2 diabetes mellitus with foot ulcer Z47.89 Encounter for other orthopedic aftercare Office Visit 05/17/2019 [facility] Kala Solitario86.672 Other chronic 3:00p For Infectious Marks, MAMMOGRAPHY TECHNICIAN osteomyelitis, left Diseases ankle and foot E11.621 Type 2 diabetes mellitus with foot ulcer Z79.2 prison (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 E11.69 Type 2 diabetes mellitus with other specified complication L97.529 Non-pressure chronic ulcer oth prt left foot w unsp severity Office Visit 05/15/2019 2:00p [facility] Internal Gustavo Erica, R35.0 Frequency of Medicine - [facility] MAMMOGRAPHY TECHNICIAN micturition M54.5 Low back pain J44.9 Chronic obstructive pulmonary disease, unspecified I10 Essential (primary) hypertension Office Visit 04/12/2019 Hung Elizabeth L97.529 Non-pressure 3:[facility] w unsp severity E11.621 Type 2 diabetes mellitus with foot ulcer T84.84xA Pain due to internal orthopedic prosth dev/grft, init L03.116 Cellulitis of left lower limb Office Visit 03/20/2019 2:20p [facility] Teresa Iqbal E11.621 Type 2 Infectious Tom Ruggiero diabetes Diseases mellitus with foot ulcer L97.521 Non-prs chronic ulcer oth prt l foot limited to brkdwn skin Office Visit 03/15/2019 11:00a [facility] [address] E11.621 Type 2 [facility] diabetes mellitus with foot ulcer L97.529 Non-pressure chronic ulcer oth prt left foot w unsp severity 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 diabetes mellitus with foot ulcer L97.529 Non-pressure chronic ulcer oth prt left foot w unsp severity Office Visit 03/01/2019 Hung Elizabeth L97.529 Non-pressure 1:30p [facility] left foot w unsp severity E11.621 Type 2 diabetes mellitus with foot ulcer Office Visit 02/24/2019 9:30a [facility] Maddy Z79.4 prison Endocrinology of [facility] Marker, RPA-C (current) use of insulin L97.529 Non-pressure chronic ulcer oth prt left foot w unsp severity E11.621 Type 2 diabetes mellitus with foot ulcer Assessments Date Code Description Provider 08/07/2019 M86.672 Other chronic osteomyelitis, left Pablo Elizabeth MD ankle and foot 08/03/2019 R35.0 Frequency of micturition Shirley Christensen [...] E11.621 Type 2 diabetes mellitus with foot Vida Marquis MD ulcer 06/12/2019 M86.672 Other chronic [...] foot Kala Marks NP ulcer 05/17/2019 Z79.2 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 computer operator (current) use of Kala Marks NP antibiotics 05/17/2019 E11.69 Type 2 diabetes mellitus with other Kala Alvarez AYESHA Marks specified complication 05/17/2019 L97.529 Non-pressure chronic ulcer of other Kala Alvarez AYESHA Marks part of left foot with unspecified severity [...] of left foot with u 03/15/2019 Z79.4 prison (current) use of insulin Lucas St MD 03/13/2019 L97.529 Non-pressure chronic ulcer oth prt Pablo Elizabeth MD left foot w unsp severity 03/13/2019 E11.621 Type 2 diabetes mellitus with foot Pablo Elizabeth MD ulcer 03/07/2019 E11.621 Type 2 diabetes mellitus with foot Lulú Ferreira RPA-[place]a ulcer 03/07/2019 L97.529 Non-pressure chronic ulcer of other Lulú Ferreira RPA-[place] part of left foot with u 03/01/2019 L97.529 Non-pressure chronic ulcer of other Pablo Elizabeth MD part of left foot with u 03/01/2019 E11.621 Type 2 diabetes mellitus with foot Pablo Elizabeth MD ulcer 02/24/2019 L97.529 Non-pressure chronic ulcer oth prt Maddy Thomas, RPA-C left foot w unsp severity 02/24/2019 Z79.4 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 Maddy Marker, RPA-C 02/24/2019 E11.621 Type 2 diabetes mellitus with foot Maddy Marker, RPA-C ulcer Plan of Treatment Future Appointment(s):08/08/2019 10:40 am - Gustavo Maldonado NP at [facility] Internal Medicine - [facility]08/29/2019 2:40 pm - Lucas St MD at [facility]08/07/2019 - Pablo Elizabeth, MDM86.672 Other chronic osteomyelitis, left ankle and footFollow up:Follow Up: to ER Functional Status Description No Information Available Mental Status Description No Information Available Referrals Refer to Reason for Referral Status Appt Eusebio Childers MD Uncontrolled Diabetes on Insulin Created [address] [place] [address] [phone] Wound Clinic left foot ulcer Sent [address] [place] [address] [phone] Yohan Ruggiero MD chronic osteomyelitis left foot Sent 05/11/[address] [place] [address] [place] [address] [phone] Yohan Ruggiero MD left great toe infection Sent 03/20/[address] [place] [address] [place] [address] [phone] Wound Clinic left great toe ulcer Created [address] [place] [address] [phone] Wound Clinic chronic plantar foot ulcer Sent [address] [place] [address] [phone] Pain Clinic chronic pain left foot Sent 04/11/[address] [place] [address] [phone] Pablo Elizabeth MD Chronic left foot ulcer, indwelling Patient Notified 07/2019 HW, consideration of HW removal? [address] [place] [address] [phone]
--- OUTSIDE RECORDS SUMMARY | 2019-08-07 13:40 | XMS REPORT | Continuity of Care Document ---
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 Medicine Problems Active Problems Provider Date Chronic [...] Start: Unknown End: Patient is a former Unknown smoker Recreational Drug Use Denies Drug Use Smoking Status Reviewed: 07/27/19 Patient is a former smoker Exercise Type/Frequency Exercises sporadically clean house Allergies, Adverse Reactions, Alerts Active Allergies Reaction Severity Comments Date Aspirin migraine w/ generic nausea 10/20/2016 Latex break out 10/20/2016 Inactive Allergies NKDA 10/16/2016 Medications Active Medications SIG Qnty Indications Ordering Date Provider Freestyle Yuni 14 use at least 4 [address] MD 2018 Day/[place]/Flash times daily with Monitoring System sensor Device Freestyle Yuni 14 place one sensor 2units E11.Naga1 Lucas [address] MD 2018 Day/Sensor/Flash every 14 days Monitoring System Misc Lancet Device use 4 times daily 150units Aracely.Naga1 Lucas [address] MD 2018 Misc Tramadol HCL 1 tablet every 12 10tabs Pablo Elizabeth, 04/25/2019 50mg hours as needed for MD Tablets pain Medical Id Dispense [address] MD 01/23/2019 Plate/Bracelet/Ster Id bracelet for ling Silver diabetes Misc Insulin use with 100units Lucas St MD 12/30/2018 Syringe/0.3ML/30G X short-acting 5/16" insulin before 30G X 5/16" meals; substitution 0.3 ML [facility] [place] Glucagen Hypokit rescue agent for 2units [...] Gustavo Maldonado NP 11/09/2018 Misc and prn Ipratropium 1 vial in nebulizer 90units J44.9 Gustavo Maldonado NP 08/15/2018 [place]/Albuterol four times a day as Sulfate needed for asthma 0.5-2.5(3)mg/3ML Solution Nebulizer for use 4 times QS J44.9 Gustavo Maldonado NP 08/15/2018 Kit/Tubing/Mouthpie daily as needed ce Kit Nebulizer use for albuterol 1units J44.9 Gustavo Maldonado NP 08/15/2018 Device nebulized solution up to 4 times a day. Precision Xtra use 3 times daily 100units E11.[address] MD 2017 Blood Glucose Test for glucose testing Strips Strips Precision Xtra use with 1units E11.[address] MD 06/09/2018 Monitor glucose/ketone Device strips Ventolin HFA 2 puffs by mouth 8units Gustavo Maldonado NP 04/21/2018 four times a day as 108(90Base) mcg/Act needed Aerosol Pen Maybell 12/03" use with lantus 100units Lucas St MD 09/03/2017 subq everyday 31G X 5 mm Misc Unifine Pentips use with 50unkarime St MD 31G long-acting insulin X 5 mm Misc once daily History Medications Ciprofloxacin HCL Take 1 tab by 6tabs E11.621 Vida Marquis, 07/14/2019 - 250mg mouth every 12 07/21/2019 Tablets hrs for 3 days Doxycycline 1 tab po bid 30tabs Pablo Elizabeth, 05/03/2019 - Monohydrate 05/03/2019 100mg Tablets Doxycycline Hyclate 1 tab every 12 30tabs Pablo Elizabeth 05/03/2019 - hours 07/26/2019 100mg Tablets Cephalexin 1 by mouth three 30caps Yohan DSharif 04/27/2019 - 500mg times a day Tom Ruggiero 05/03/2019 Capsules Sulfamethoxazole/Trim take one tablet 28tabs E11.622 Pablo Elizabeth, 2018 - ethoprim DS twice a day 03/17/2019 800-160mg Tablets Probiotic & One capsule 60caps R19.7 Gustavo Maldonado NP 01/30/2019 - Acidophilus Formula twice daily 03/17/2019 Extra Strength Capsules Betamethasone apply thin layer 90gm R21 Gustavo Maldonado NP 01/30/2019 - Dipropionate to affected 05/16/2019 0.05% areas twice Cream daily. Tramadol HCL 1-2 tablets 28tabs E11.42 Gustavo Maldonado NP 01/30/2019 - 50mg every 12 hours 05/15/2019 Tablets as needed for pain. Immunizations Description No Information Available Vital Signs Date Vital Result Comment 07/27/2019 3:26pm Height 64 inches 5'4" Weight 172.00 lb w/ shoes Heart Rate 66 /min BP Systolic Sitting 183 mmHg BP Diastolic Sitting 82 mmHg BMI (Body Mass Index) 29.5 kg/m2 07/14/2019 2:18pm Height 64 inches 5'4" Weight 172.00 lb Heart Rate 65 /min BP Systolic 135 mmHg BP Diastolic 79 mmHg Body Temperature 97.6 F O2 % BldC Oximetry 97 % BMI (Body Mass Index) 29.5 kg/m2 Results Test Acquired Date Facility Test Result H/L Range Note Urine Culture And 07/14/2019 [facility] Urine Culture SEE RESULT [address] [place] [address] [phone] Urine Microalbumin 07/14/2019 [facility] Urine 108.[address] Creatinine mg/[place] [address] [phone] Ur Microalbumin (mg/L) > 1500.0 mg/L Urine Microalbumin/Creatinine 1387.9 High <31 CBC Auto 07/14/2019 [facility] White Blood 5.8 10^3/uL Normal 3.5-10.[address] [place] [address] [phone] Red Blood Count 4.37 10^6/uL Normal 3.70-4.87 [...] Blood Cells % 0.1 Comp Metabolic 07/14/2019 [facility] Sodium 140 mmol/L Normal 135-[address] [place] [address] [phone] Potassium 4.6 mmol/L Normal 3.5-5.0 Chloride 103 [...] Egfr 72.1 >60 2 Urinalysis Profile 07/14/2019 [facility] Urine Color Yellow [address] [place] [address] [phone] Urine Appearance Cloudy Urine Specific [place] 1.018 Normal 1.010-1.030 Urine pH 5.0 Normal [...] Casts Present Abnormal Absent Laboratory test 07/14/2019 [facility] Hemoglobin A1c 14.9 % High 4.0-5.6 [address] (Glyco HGB) [place] [address] [phone] Laboratory test 05/18/2019 [facility] C Reactive 3.00 Normal < 8.[address] Protein mg/[place] [address] [phone] CBC Auto Diff 05/18/2019 [facility] White Blood 5.7 Normal 3.5 -10.[address] Count 10^3/[place] [address] [phone] Red Blood Count 4.04 10^6/uL Normal 3.70-4.87 [...] % Nucleated Red Blood Cells % 0.0 Basic Metabolic 05/18/2019 [facility] Sodium 140 mmol/L Normal 135-[address] [place] [address] [phone] Potassium 4.7 mmol/L Normal 3.5-5.0 Chloride 104 mmol/L Normal 101-111 Co2 Carbon Dioxide 32 mmol/L Normal 22-32 Anion Gap 4 mmol/L Normal 2-11 Glucose 289 mg/dL High 70-100 Blood Urea Nitrogen 23 mg/dL Normal 6-24 Creatinine 1.12 mg/dL High 0.51-0.95 BUN/Creatinine Ratio 20.5 High 8-20 Calcium 9.2 mg/dL Normal 8.6-10.3 Egfr Non- 51.3 >60 Egfr 62.1 >60 4 Ua Routine 05/15/2019 [facility] Ua Specific [place] 1.025 Ua PH 5 Ua Color yellow Ua Appera clear Ua WBC trace Ua Protein 500 Ua Glucose 1000 Ua Ketones negative Ua Bilirubin negative Ua Urobilinogen normal Ua Nitrite negative Ua Occult Blood trace Urine Culture And 05/15/2019 [facility] Urine Culture SEE RESULT [address] [place] [address] [phone] Laboratory test 04/25/2019 [facility] Point of Care 221 mg/dL High 70-1 [address] Glucose 00 [place] [address] [phone] Laboratory test 04/25/2019 [facility] Point of Care 275 mg/dL High 70-1 [address] Glucose 00 [place] [address] [phone] Laboratory test 04/25/2019 [facility] Surgical SEE RESULT [address] [place] [address] [phone] Laboratory test 04/25/2019 [facility] Tissue Culture SEE RESULT [address] & [place] [address] [phone] Wound 04/25/2019 [facility] Wound/Misc SEE RESULT 10 Culture/Sensi [address] [place] [address] Stain [phone] Laboratory test 04/25/2019 [facility] Anaerobic SEE RESULT [address] [place] [address] [phone] Laboratory test 04/25/2019 [facility] Point of Care 264 mg/dL High 70-1 [address] Glucose 00 [place], [place] [address] [phone] Basic Metabolic 04/25/2019 [facility] Glucose 426 mg/dL High 70-[address] 00 [place], [place] [address] [phone] Sodium 137 mmol/L Normal 135-145 Potassium 4.6 mmol/L Normal 3.5-5.0 Chloride 104 mmol/L Normal 101-111 Co2 Carbon Dioxide 24 mmol/L Normal 22-32 Anion Gap 9 mmol/L Normal 2-11 Blood Urea Nitrogen 24 mg/dL Normal 6-24 Creatinine 0.97 mg/dL High 0.51-0.95 BUN/Creatinine Ratio 24.7 High 8-20 Calcium 8.9 mg/dL Normal 8.6-10.3 Egfr Non- 60.5 >60 Egfr 73.3 >60 13 Laboratory 04/25/2019 [facility] Glucose 426 High 70-100 test finding [address] Confirmatory mg/[place] [address] [phone] Laboratory 04/25/2019 [facility] Point of Care 424 Critical 70 -100 14 test finding [address] Glucose mg/dL high [place], [place] [address] [phone] Laboratory 02/07/2019 [facility] Point of Care 127 High 70- 100 15 test finding [address] Glucose mg/dL [place], [place] [address] [phone] Laboratory 01/30/2019 [facility] Hemoglobin A1c 8.6% High 5-7 test finding 1 SEE RESULT BELOW Name: LESLY GILES : [address]: Vida Marquis MD Acct: [id number] Unit: [id number] AGE: 54 Location: [facility] Re07/14/19 SEX: F Status: REG REF SPEC: [id number] ASHLEY: 07/14/[address]: Vida Marquis MD REQ: [id number] RECD: 07/14/19 STATUS: COMP _ SOURCE: URINE SPDESC: ORDERED: Urine Culture Procedure Result Reported Site Urine Culture Final 07/16/19- 0750 ML Organism 1 ESCHERICHIA COLI Grace Count >100,000 (Many) CFU/ML 1. ESCHERICHIA COLI [...] END OF REPORT DEPARTMENT OF PATHOLOGY, [address] [place] [address] Renaldo Santos M.D. Director [facility] # [id number] 2 Because ethnic data is not always [...] in selective patients <6.0%. Please refer to [place] [employer] diabetic care guidelines for further [...] [address]: Gustavo Maldonado NP Acct: [id number] Unit: [id number] AGE: 53 Location: [facility] Re05/15/19 SEX: F Status: REG REF SPEC: [id number] ASHLEY: 05/15/19-[address]: Gustavo Maldonado NP REQ: [id number] RECD: 05/15/19 STATUS: COMP _ SOURCE: URINE SPDESC: ORDERED: Urine Culture COMMENTS: [id number] Urine Source: Random Procedure Result Reported Site Urine Culture Final 05/17/19- 935 ML No growth of clinically significant organisms * ML - Main Lab . END OF REPORT DEPARTMENT OF PATHOLOGY, [address] [place] [address] Renaldo Santos M.D. Director [facility] # [id number] 6 Tmd Teacher Assistant: [id number] 7 Tmd Teacher Assistant: [id number] 8 SEE RESULT BELOW Name: LESLY GILES : [address]: Pablo Elizabeth MD Acct: [id number] Unit: [id number] AGE: 53 Location: [place] Re04/25/19 SEX: F Status: REG SDC SPEC: [id number] ASHLEY: 04/25/19- SUBM DR: Pablo Elizabeth MD REQ: [id number] RECD: 04/25/191243 STATUS: SOUT _ ORDERED: LEVEL 1 FINAL [...] There is an inscription which reads [id number]. Received separately in the [...] 1027 END OF REPORT DEPARTMENT OF PATHOLOGY, [address] [place] [address] Renaldo Santos M.D. Director [facility] # [id number] 9 SEE RESULT BELOW Name: LESLY GILES Damaris : [address]: Pablo Elizabeth MD Acct: [id number] Unit: [id number] AGE: 53 Location: [place] Re04/25/19 SEX: F Status: REG SDC SPEC: [id number] ASHLEY: 04/25/[address]: Pablo Elizabeth MD REQ: [id number] RECD: 04/25/19 STATUS: CORAZON PIZANO DR: Zoya [...] ON NEXT PAGE DEPARTMENT OF PATHOLOGY, [address] [place] [address] Renaldo Santos M.D. Director [facility] # [id number] Patient: LESLY GILES [id number] (Continued) Specimen: [id number] Collected: 04/25/19 Received: 04/25/19 (Continued) Procedure Result [...] These antibiotics are not available in the [facility] Formulary Contact the Microbiology Department for any additional antibiotic reporting. Anaerobic Culture Final 04/29/191121 ML Anaerobe Culture No Anaerobes Day 4 * - Main Lab . END OF REPORT DEPARTMENT OF PATHOLOGY, [address] [place] [address] Renaldo Santos M.D. Director [facility] # [id number] 10 SEE RESULT BELOW Name: LESLY GILES Damaris : [address]: Pablo Elizabeth MD Acct: [id number] Unit: [id number] AGE: 53 Location: [place] Re04/25/19 SEX: F Status: REG SDC SPEC: [id number] ASHLEY: 04/25/[address] [facility] [address]: Pablo Elizabeth MD REQ: [id number] RECD: 04/25/19 STATUS: CORAZON PIZANO DR: Zoya [...] ON NEXT PAGE DEPARTMENT OF PATHOLOGY, [address] [place] [address] Renaldo Santos M.D. Director [facility] # [id number] Patient: LESLY GILES [id number] (Continued) Specimen: [id number] Collected: 04/25/19 Received: 04/25/19 (Continued) Procedure Result Reported Site Wound/Misc Culture Final (continued) 04/29/19 111 1. STAPHYLOCOCCUS AUREUS (continued) M.I.C. RX --------- ------ Cefazolin-Deduced S * These antibiotics are not available in the [facility] Formulary Contact the Microbiology Department for any additional antibiotic reporting. * ML - Main Lab . END OF REPORT DEPARTMENT OF PATHOLOGY, [address] [place] [address] Renaldo Santos M.D. Director [facility] # [id number] 11 SEE RESULT BELOW Name: LESLY GILES : [address]: Pablo Elizabeth MD Acct: [id number] Unit: [id number] AGE: 53 Location: [place] Re04/25/19 SEX: F Status: REG SDC SPEC: [id number] ASHLEY: 04/25/[address]: Pablo Elizabeth MD REQ: [id number] RECD: 04/25/19 STATUS: CORAZON PIZANO DR: Zoya Patten MD _ SOURCE: WOUND SPDESC:LEFT ORDERED: Anaerobic Cult Procedure Result Reported Site Anaerobic Culture Final 04/29/19- 1119 ML Anaerobe Culture No Anaerobes Day 4 * ML - Main Lab . END OF REPORT DEPARTMENT OF PATHOLOGY, [address] [place] [address] Renaldo Santos M.D. Director [facility] # [id number] 12 Tmd Teacher Assistant: [id number] 13 Because ethnic data is not always [...] 5 Kidney failure <15 (or dialysis) 14 Tmd Teacher Assistant: [id number] 15 Tmd Teacher Assistant: [id number] Procedures Date Code Description Status 07/14/2019 09044 EKG Tracing & Interpretation Completed 06/08/2019 854060633 Diabetic Retinal Eye Exam Completed 04/25/201938838 Excise Biopsy Bone Deep Completed 04/25/2019 Excise Biopsy Bone Deep Completed 04/25/2019 79170 Debridement Tissue/Muscle/Bone Completed 04/25/2019 47720 Debridement Tissue/Muscle/Bone Completed 03/16/2019 510293464 Diabetic Retinal Eye Exam Completed 02/24/2019 29546 Glucose Monitoring Interpetation And Report Completed 09/22/2018 214695845 Diabetic Retinal Eye Exam Completed 11/02/2017 438765858 Diabetic Retinal Eye Exam Completed 06/18/2017 625179691 Diabetic Retinal Eye Exam Completed Medical Devices Description No Information Available Encounters Type Date Location Provider Dx Diagnosis Office Visit 05/29/2019 [facility] Clara, M86.672 Other chronic 11:30a at [place] osteomyelitis, left ankle and foot E11.621 Type 2 diabetes mellitus with foot ulcer Z47.89 Encounter for other orthopedic aftercare Office Visit 05/17/2019 [facility] Kala Alvarez M86.672 Other chronic 3:00p For Infectious Marks, RACQUET MAKER osteomyelitis, left Diseases ankle and foot E11.621 Type 2 diabetes mellitus with foot ulcer Z79.2 terminal carman (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 E11.69 Type 2 diabetes mellitus with other specified complication L97.529 Non-pressure chronic ulcer oth prt left foot w unsp severity Office Visit 05/15/2019 2:00p [facility] Internal Gustavo Erica, R35.0 Frequency of Medicine - Ccmob RACQUET MAKER micturition M54.5 Low back pain J44.9 Chronic obstructive pulmonary disease, unspecified I10 Essential (primary) hypertension Office Visit 04/12/2019 [place] Pablo Elizabeth L97.529 Non-pressure 3:[facility] w unsp severity E11.621 Type 2 diabetes mellitus with foot ulcer T84.84xA Pain due to internal orthopedic prosth dev/grft, init L03.116 Cellulitis of left lower limb Office Visit 03/20/2019 2:20p [facility] Teresa Iqbal E11.621 Type 2 Infectious Tom Ruggiero diabetes Diseases mellitus with foot ulcer L97.521 Non-prs chronic ulcer oth prt l foot limited to brkdwn skin Office Visit 03/15/2019 11:00a [facility] [address] [facility] E11.621 Type 2 [facility] diabetes mellitus with foot ulcer L97.529 Non-pressure chronic ulcer oth prt left foot w unsp severity Z79.4 snf (current) use of insulin [facility] L97.529 Non-pressure 10:45a [facility] at chronic ulcer oth [place] prt left foot w unsp severity E11.621 Type 2 diabetes mellitus with foot ulcer Office Visit 03/07/2019 1:45p [facility] Lulú Ferreira, E11.621 Type 2 at [place] RPA-C diabetes mellitus with foot ulcer L97.529 Non-pressure chronic ulcer oth prt left foot w unsp severity Office Visit 03/01/2019 [place] Pablo Elizabeth, L97.529 Non-pressure 1:30p Orthopedics at chronic ulcer oth [place] prt left foot w unsp severity E11.621 Type 2 diabetes mellitus with foot ulcer Office Visit 02/24/2019 9:30a [facility] Maddy Z79.4 snf Endocrinology of [facility] Martha RPA-C (current) use of insulin L97.529 Non-pressure chronic ulcer ot prt left foot w unsp severity E11.621 Type 2 diabetes mellitus with foot ulcer Office Visit 01/30/2019 10:00a [facility] Internal Gustavo Maldonado, Z01.818 Encounter for other Medicine - RACQUET MAKER preprocedural Ccmob examination H26.9 Unspecified cataract J44.9 Chronic obstructive pulmonary disease, unspecified R19.7 Diarrhea, unspecified R21 Rash and other nonspecific skin eruption I10 Essential (primary) hypertension E11.42 Type 2 diabetes mellitus with diabetic polyneuropathy Assessments Date Code Description Provider 07/27/2019 E11.621 Type 2 diabetes mellitus with [...] aftercare 05/17/2019 M86.672 Other chronic osteomyelitis, left Kalamckenna Marks NP ankle and foot 05/17/2019 E11.621 Type 2 diabetes mellitus with foot Kala Harrycoleenjaniya Marks NP ulcer 05/17/2019 Z79.2 snf (current) use of Kala Marks NP antibiotics 05/17/2019 E11.69 Type 2 diabetes mellitus with other Kala Rosswilliam Marks NP specified complication 05/17/2019 L97.529 Non-pressure chronic ulcer of other Kala Alvarez AYESHA Marks part of left foot with unspecified severity 05/15/2019 R35.0 Frequency of micturition Gustavo Maldonado NP 05/15/2019 M54.5 Low back pain Gustavolauren Maldonado NP 05/15/2019 J44.9 Chronic obstructive pulmonary Gustavolauren Maldonado NP disease, unspecified 05/15/2019 I10 Essential (primary) hypertension Gustavolauren Maldonado NP 05/12/2019 E11.621 Type 2 diabetes [...] implants 04/25/2019 M86.672 Other chronic osteomyelitis, left [employer] HGEO Fermin ankle and foot 04/25/2019 M86.672 Other chronic [...] 03/20/2019 L97.521 Non-prs chronic ulcer oth prt damaris Ruggiero M.D. foot limited to brkdwn skin [...] Type 2 diabetes mellitus with foot GEO Ray ulcer 03/07/2019 L97.529 Non-pressure chronic ulcer of other GEO Ray part of left foot with u 03/01/2019 L97.529 Non-pressure chronic ulcer of other Pablo Elizabeth MD part of left foot with u 03/01/2019 E11.621 Type 2 diabetes mellitus with foot Pablo Elizabeth MD ulcer 02/24/2019 L97.529 Non-pressure chronic ulcer oth prt GEO Maher left foot w unsp severity 02/24/2019 Z79.4 terminal carman (current) use of insulin Maddy Marker, RPA-C 02/24/2019 E11.621 Type 2 diabetes mellitus with foot Maddy Marker, RPA-C ulcer 01/30/2019 Z01.818 Encounter for other preprocedural Gustavo Maldonado NP examination 01/30/2019 H26.9 Unspecified cataract Gustavo Maldonado NP 01/30/2019 J44.9 Chronic obstructive pulmonary Gustavolauren Maldonado NP disease, unspecified 01/30/2019 R19.7 Diarrhea, unspecified Gustavolauren Maldonado NP 01/30/2019 R21 Rash and other nonspecific skin Gustavo Maldonado NP eruption 01/30/2019 I10 Essential (primary) hypertension Gustavo Maldonado NP 01/30/2019 E11.42 Type 2 diabetes mellitus with Gustavo Maldonado NP diabetic polyneuropathy Plan of Treatment Future Appointment(s):08/29/2019 2:40 pm - Lucas St MD at [facility]08/07/2019 1:15 pm - Pablo Elizabeth MD at [facility] at Hfhnlz7808/02/2019 10:20 am - Gustavo Maldonado NP at [facility] Internal Medicine - Ccmob07/27/[address] - [address] MDE11.621 Type 2 diabetes mellitus with foot ulcerNew Medication:Freestyle Yuni 14 Day/[place]/Flash Monitoring System - use at least 4 times daily with sensorFreestyle Yuni 14 Day/Sensor/ Flash Monitoring System - place one sensor every 14 daysLancet Device - use 4 times dailyFollow up:1 month, okay to overbook Functional Status Description No Information Available Mental Status Description No Information Available Referrals Refer to Reason for Referral Status Appt Eusebio Childers MD Uncontrolled Diabetes on Insulin Created [address] [place] [address] [phone] Wound Clinic left foot ulcer Sent [address] [place] [address] [phone] Yohan Ruggiero MD chronic osteomyelitis left foot Sent 05/11/2019 [address] [facility] [place] [address] [phone] Yohan Ruggiero MD left great toe infection Sent 03/20/[address] [place] [address] [place] [address] [phone] Wound Clinic left great toe ulcer Created [address] [place], [place] [address] [phone] W[facility] Clinic chronic plantar foot ulcer Sent [address] [place], [place] [address] [phone] Pain Clinic chronic pain left foot Sent 04/11/[address] [place] [address] [phone] Pablo Elizabeth MD Chronic left foot ulcer, indwelling Patient Notified 07/2019 HW, consideration of HW removal? [address] [place] [address] [phone] Gustavo Daly, Patient Declined [address] [place] [address] [phone]
--- OUTSIDE RECORDS SUMMARY | 2019-08-07 13:40 | XMS REPORT | Continuity of Care Document ---
:1965 External Reference #:[id number] Author Name Pablo Elizabeth MD (transmitted by agent of provider Daphne Alonzo) Address [address] [place] [id number] Care Team Providers Name Role Phone Zoya Patten MD - Internal Care Team Information Molten Iron Pourer [phone] Medicine Frankie Solis MD - Internal Care Team Information [employer]ten Iron Pourer Medicine Problems Active Problems Provider Date Chronic [...] Use Denies Drug Use Smoking Status Reviewed: 06/12/19 Patient is a former smoker Exercise Type/Frequency Exercises sporadically clean house Allergies, Adverse Reactions, Alerts Active Allergies Reaction Severity Comments Date Aspirin migraine w/ generic nausea 10/20/2016 Latex break out 10/20/2016 Inactive Allergies NKDA 10/16/2016 Medications Active Medications SIG Qnty Indications Ordering Date Provider Doxycycline Hyclate 1 tab every 12 30tabs [facility], 05/03/2019 hours 100mg Tablets Tramadol HCL 1 tablet every 12 10tabs [facility], 04/25/2019 50mg hours as needed for Tablets pain Medical Id Dispense [address] MD 01/23/2019 Plate/Bracelet/Ster Id bracelet for ling Silver diabetes Misc Insulin use with 100units Lucas [facility] MD 12/30/2018 Syringe/0.3ML/30G X short-acting 5/16" insulin before 30G X 5/16" meals; substitution 0.3 ML [facility] okay Glucagen Hypokit rescue agent for 2units [...] nebulizer 90units J44.9 Gustavo Maldonado NP 08/15/2018 [place]/Albuterol four times a day as Sulfate needed [...] day as 108(90Base) mcg/Act needed Aerosol Pen [place] 12/03" use with lantus 100units [facility] MD 09/03/2017 subq everyday 31G X 5 mm Misc Unifine Pentips use with 50units Lucas [facility] MD 31G long-acting insulin X 5 mm Misc once daily History Medications Doxycycline 1 tab po bid 30tabs Pablo Elizabeth 05/03/2019 - Monohydrate 05/03/2019 100mg Tablets Cephalexin 1 by mouth three 30caps Yohan Iqbal 04/27/2019 - 500mg times a day Tom Ruggiero 05/03/2019 Capsules Sulfamethoxazole/Trim take one tablet 28tabs E11.622 Pablo Elizabeth 2018 - ethoprim DS twice a day [...] hours 05/15/2019 Tablets as needed for pain. Lyrica One capsule 60caps E11.42 Gustavo Maldonado NP 12/30/2018 - 150mg Capsules twice daily 05/16/2019 Rid Lice Killing apply and let 236ml B85.0 Gustavo Maldonado NP 12/29/2018 - Shampoo sit 10 minutes 01/12/2019 0.33-4% Shampoo then rinse. retreat in 7 days Immunizations Description No Information Available Vital Signs Date Vital Result Comment 06/12/2019 11:02am Height 64 inches 5'4" Weight 180.00 lb Heart Rate 68 /min BP Systolic 124 mmHg BP Diastolic 66 mmHg BMI (Body Mass Index) 30.9 kg/m2 05/29/2019 11:45am Height 63 inches 5'3" Weight 170.00 lb Heart Rate 96 /min BP Systolic 124 mmHg BP Diastolic 82 mmHg BMI (Body Mass Index) 30.1 kg/m2 Results Test Date Facility Test Result H/L Range Note Basic Metabolic 05/18/2019 [facility] Sodium 140 mmol/L Normal 135-[address] [place] [address] [phone] Potassium 4.7 mmol/L Normal 3.5-5.0 Chloride 104 mmol/L Normal 101-111 Co2 Carbon Dioxide 32 mmol/L Normal 22-32 Anion Gap 4 mmol/L Normal 2-11 Glucose 289 mg/dL High 70-100 Blood Urea Nitrogen 23 mg/dL Normal 6-24 Creatinine 1.12 mg/dL High 0.51-0.95 BUN/Creatinine Ratio 20.5 High 8-20 Calcium 9.2 mg/dL Normal 8.6-10.3 Egfr Non- 51.3 >60 Egfr 62.1 >60 1 Laboratory test 05/18/2019 [facility] C Reactive 3.00 mg/L Normal <8.[address] [place] [address] [phone] CBC Auto Diff 05/18/2019 [facility] White Blood 5.7 Normal 3.5 -10.[address] Count 10^3/[place] [address] [phone] Red Blood Count 4.04 10^6/uL Normal 3.70-4.87 [...] % Nucleated Red Blood Cells % 0.0 Urine Culture And 05/15/2019 [facility] Urine Culture SEE RESULT [address] [place] [address] [phone] Ua Routine 05/15/2019 [employer] In House Ua Specific 1.025 [place] Ua PH 5 Ua Color yellow Ua Appera clear Ua WBC trace Ua Protein 500 Ua Glucose 1000 Ua Ketones negative Ua Bilirubin negative Ua Urobilinogen normal Ua Nitrite negative Ua Occult Blood trace Laboratory test 04/25/2019 [facility] Point of Care 221 mg/dL High 70-100 [address] [place] [address] [phone] Laboratory test 04/25/2019 [facility] Point of Care 275 mg/dL High 70-100 [address] [place] [address] [phone] Laboratory test 04/25/2019 [facility] Surgical SEE RESULT [address] [place] [address] [phone] Laboratory test 04/25/2019 [facility] Tissue Culture SEE RESULT [address] & [place] [address] [phone] Wound 04/25/2019 [facility] Wound/Misc SEE RESULT 7 Culture/Sensi [address] [place] [address] Stain [phone] Laboratory test 04/25/2019 [facility] Anaerobic SEE RESULT [address] [place] [address] [phone] Laboratory test 04/25/2019 [facility] Point of Care 264 mg/dL High 70-100 [address] [place] [address] [phone] Basic Metabolic 04/25/2019 [facility] Glucose 426 mg/dL High 70-[address] [place] [address] [phone] Sodium 137 mmol/L Normal 135-145 Potassium 4.6 mmol/L Normal 3.5-5.0 Chloride 104 mmol/L Normal 101-111 Co2 Carbon Dioxide 24 mmol/L Normal 22-32 Anion Gap 9 mmol/L Normal 2-11 Blood Urea Nitrogen 24 mg/dL Normal 6-24 Creatinine 0.97 mg/dL High 0.51-0.95 BUN/Creatinine Ratio 24.7 High 8-20 Calcium 8.9 mg/dL Normal 8.6-10.3 Egfr Non- 60.5 >60 Egfr 73.3 >60 10 Laboratory 04/25/2019 [facility] Glucose 426 High 70-100 test finding [address] Confirmatory mg/[place] [address] [phone] Laboratory 04/25/2019 [facility] Point of Care 424 Critical 70 -100 11 test finding [address] Glucose mg/dL [place], [place] [address] [phone] Laboratory 02/07/2019 [facility] Point of Care 127 High 70- 100 12 test finding [address] Glucose mg/[place] [address] [phone] Laboratory 01/30/2019 [employer] In House Hemoglobin A1c 8.6% High 5-7 test finding Laboratory 12/12/2018 [employer] In House Glucose Random 135 test finding 1 Because ethnic data is not always [...] 5 Kidney failure <15 (or dialysis) 2 SEE RESULT BELOW Name: KARLAHANNAHLESLY : [address]: Gustavo Maldonado NP Acct: [id number] Unit: [id number] AGE: 53 Location: [facility] Re05/15/19 SEX: F Status: REG REF SPEC: [id number] ASHLEY: 05/15/19679 [facility] DR: Gustavo Maldonado NP REQ: [id number] RECD: 05/15/19 STATUS: COMP _ SOURCE: URINE SPDESC: ORDERED: Urine Culture COMMENTS: [id number] Urine Source: Random Procedure Result Reported Site Urine Culture Final 05/17/19- 09 ML No growth of clinically significant organisms * ML - Main Lab . END OF REPORT DEPARTMENT OF PATHOLOGY, [address] [place] [address] Renaldo Santos M.D. Director [facility] # [id number] 3 Implementation Specialist Payroll: [id number] Implementation Specialist Payroll: [id number] 5 SEE RESULT BELOW Name: LESLY GILES Jose : [address]: Pablo Elizabeth MD Acct: [id number] Unit: [id number] AGE: 53 Location: [place] Re04/25/19 SEX: F Status: REG SDC SPEC: [id number] ASHLEY: 04/25/19- [facility] DR: Pablo Elizabeth MD REQ: [id number] RECD: 04/25/19 STATUS: SOUT _ ORDERED: LEVEL [...] There is an inscription which reads L [id number]. Received separately in the [...] 1027 END OF REPORT DEPARTMENT OF PATHOLOGY, [address] [place] [address] Renaldo Santos M.D. Director [facility] # [id number] 6 SEE RESULT BELOW Name: LESLY GILES Jose : [address]: Pablo Elizabeth MD Acct: [id number] Unit: [id number] AGE: 53 Location: [place] Re04/25/19 SEX: F Status: REG SDC SPEC: [id number] ASHLEY: 04/25/19-1218 [facility] [address]: Pablo Elizabeth MD REQ: [id number] RECD: 04/25/19 STATUS: CORAZON PIZANO DR: Zoya [...] CONTINUED ON NEXT PAGE DEPARTMENT OF PATHOLOGY, [address] [place] [address] Renaldo Santos M.D. Director [facility] # [id number] Patient: LESLY GILES [id number] (Continued) Specimen: [id number] Collected: 04/25/19 Received: 04/25/19 (Continued) Procedure Result [...] These antibiotics are not available in the [facility] Formulary Contact the Microbiology Department for any additional antibiotic reporting. Anaerobic Culture Final 04/29/191121 ML Anaerobe Culture No Anaerobes Day 4 * ML - Main Lab . END OF REPORT DEPARTMENT OF PATHOLOGY, [address] [place] [address] Renaldo Santos M.D. Director [facility] # [id number] 7 SEE RESULT BELOW Name: TISHALESLY L : [address]: Pablo Elizabeth MD Acct: [id number] Unit: [id number] AGE: 53 Location: [place] Re04/25/19 SEX: F Status: REG SDC SPEC: [id number] ASHLEY: 04/25/[address]: Pablo Elizabeth MD REQ: [id number] RECD: 04/25/19 STATUS: COMP CHRISTIANOHR DR: Zoya Patten MD _ SOURCE: TOE [...] CONTINUED ON NEXT PAGE DEPARTMENT OF PATHOLOGY, [address] [place] [address] Renaldo Santos M.D. Director MAT[facility]W # [id number] Patient: LESLY GILES [id number] (Continued) Specimen: [id number] Collected: 04/25/19 Received: 04/25/19 (Continued) Procedure Result Reported Site Wound/Misc Culture Final (continued) 04/29/19 1119 1. STAPHYLOCOCCUS AUREUS (continued) M.I.C. RX --------- ------ Cefazolin-Deduced S * These antibiotics are not available in the [facility] Formulary Contact the Microbiology Department for any additional antibiotic reporting. * - Main Lab . END OF REPORT DEPARTMENT OF PATHOLOGY, [address] [place] [address] Renaldo Santos M.D. Director MATTHEW # [id number] 8 SEE RESULT BELOW Name: LESLY GILES Jose : [address]: Pablo Elizabeth MD Acct: [id number] Unit: [id number] AGE: 53 Location: [place] Re04/25/19 SEX: F Status: REG SDC SPEC: [id number] ASHLEY: 04/25/[address] [facility] [address]: Pablo Elizabeth MD REQ: [id number] RECD: 04/25/19 STATUS: CORAZON PIZANO DR: Zoya Patten MD _ SOURCE: WOUND SPDESC:LEFT ORDERED: Anaerobic Cult Procedure Result Reported Site Anaerobic Culture Final 04/29/19- 1119 ML Anaerobe Culture No Anaerobes Day 4 * ML - Main Lab . END OF REPORT DEPARTMENT OF PATHOLOGY, [address] [place] [address] Renaldo Santos M.D. Director [facility] # [id number] 9 Implementation Specialist Payroll: [id number] 10 Because ethnic data is not always readily [...] 15-29 5 Kidney failure <15 (or dialysis) 11 Implementation Specialist Payroll: [id number] Implementation Specialist Payroll: [id number] Procedures Date Code Description Status 06/08/2019 408424284 Diabetic Retinal Eye Exam Completed 04/25/2019 [facility] Biopsy Bone Deep Completed 04/25/2019 [facility] Biopsy Bone Deep Completed 04/25/2019 33187 Debridement Tissue/Muscle/Bone Completed 04/25/2019 72803 Debridement Tissue/Muscle/Bone Completed 03/16/2019 749512903 Diabetic Retinal Eye Exam Completed 02/24/2019 77800 Glucose Monitoring Interpetation And Report Completed 12/14/2018 46620 Glucose Monitoring Interpetation And Report Completed 09/22/2018 308609831 Diabetic Retinal Eye Exam Completed 11/02/2017 385771664 Diabetic Retinal Eye Exam Completed 06/18/2017 159622244 Diabetic Retinal Eye Exam Completed Medical Devices Description No Information Available Encounters Type Date Location Provider Dx Diagnosis Office Visit 05/29/2019 Orthopedic Pablo Elizabeth M86.672 Other chronic 11:30a [facility] osteomyelitis, left ankle and foot E11.621 Type 2 diabetes mellitus with foot ulcer Z47.89 Encounter for other orthopedic aftercare Office Visit 05/17/2019 [facility] Kala Alvarez M86.672 Other chronic 3:00p For Infectious Marks, FORMING DEPARTMENT SUPERVISOR osteomyelitis, left Diseases ankle and foot E11.621 Type 2 diabetes mellitus with foot ulcer 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 (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 E11.69 Type 2 diabetes mellitus with other specified complication L97.529 Non-pressure chronic ulcer oth prt left foot w unsp severity Office Visit 05/15/2019 2:00p [employer] Equipment Maintenance Supervisor Internal Gustavo Erica, R35.0 Frequency of Medicine - Ccmob [employer] DEPARTMENT SUPERVISOR micturition M54.5 Low back pain J44.9 Chronic obstructive pulmonary disease, unspecified I10 Essential (primary) hypertension Office Visit 04/12/2019 Orthopedic Pablo Elizabeth, L97.529 Non-pressure 3:15p Services Of chronic ulcer otaldair Stearns prt left foot w unsp severity E11.621 Type 2 diabetes mellitus with foot ulcer T84.84xA Pain due to internal orthopedic prosth dev/grft, init L03.116 Cellulitis of left lower limb Office Visit 03/20/2019 2:20p [facility] Teresa Iqbal E11.621 Type 2 Infectious Tom Ruggiero diabetes Diseases mellitus with foot ulcer L97.521 Non-prs chronic ulcer oth prt l foot limited to brkdwn skin Office Visit 03/15/2019 11:00a [facility] [address], E11.621 Type 2 Endocrinology of [facility] diabetes mellitus with foot ulcer L97.529 Non-pressure chronic ulcer oth prt left foot w unsp severity Z79.4 [facility] (current) use of insulin Office Visit 03/13/2019 Orthopedic Pablo Elizabeth L97.529 Non-pressure 10:45a Services Of chronic ulcer oth C.M.A. prt left foot w unsp severity E11.621 Type 2 diabetes mellitus with foot ulcer Office Visit 03/07/2019 1:45p Orthopedic Lulú Ferreira E11.621 Type 2 diabetes Services Of RPA-C mellitus with C.M.A. foot ulcer L97.529 Non-pressure chronic ulcer oth prt left foot w unsp severity Office Visit 03/01/2019 Orthopedic Pablo Elizabeth L97.529 Non-pressure 1:30p Services Of chronic ulcer oth C.M.A. prt left foot w unsp severity E11.621 Type 2 diabetes mellitus with foot ulcer Office Visit 02/24/2019 9:30a [facility] Diabetes and Maddy Z79.4 exterminator helper Endocrinology of [facility] GEO Thomas (current) use of insulin L97.529 Non-pressure chronic ulcer oth prt left foot w unsp severity E11.621 Type 2 diabetes mellitus with foot ulcer Office Visit 01/30/2019 10:00a [facility] Internal Gustavo Erica, Z01.818 Encounter for other Medicine - FORMING DEPARTMENT SUPERVISOR preprocedural Ccmob examination H26.9 Unspecified cataract J44.9 Chronic obstructive pulmonary disease, unspecified R19.7 Diarrhea, unspecified R21 Rash and other nonspecific skin eruption I10 Essential (primary) hypertension E11.42 Type 2 diabetes mellitus with diabetic polyneuropathy Office Visit 01/23/2019 [facility] Diabetes and Maddy E11.649 Type 2 diabetes 2:00p Endocrinology of [facility] RPA-C mellitus with [facility] hypoglycemia without coma Z79.4 [facility] (current) use of insulin Office Visit 12/14/2018 3:40p [facility] [place] and [address] Z79.4 exterminator helper Endocrinology of [facility] (current) use of insulin E11.649 Type 2 diabetes mellitus with hypoglycemia without coma Office Visit 12/12/2018 3:30p [facility] Diabetes and Maddy E11.621 Type 2 Endocrinology of Farm Equipment Maintenance Supervisor Marker, RPA-C diabetes mellitus with foot ulcer Assessments Date Code Description Provider 06/12/2019 M86.672 Other chronic osteomyelitis, left Pablo Elizabeth MD ankle and foot 06/12/2019 E11.621 Type 2 diabetes mellitus with foot Pablo Elizabeth MD ulcer 05/29/2019 M86.672 Other chronic osteomyelitis, left Pablo Elizabeth MD ankle and foot 05/29/2019 E11.621 Type 2 diabetes mellitus with foot Pablo Elizabeth MD ulcer 05/29/2019 Z47.89 Encounter for other orthopedic Pablo Elizabeth MD aftercare 05/17/2019 M86.672 Other chronic osteomyelitis, left Kala Marks NP ankle and foot 05/17/2019 E11.621 Type 2 diabetes mellitus with foot Kala Marks NP ulcer 05/17/2019 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 helper (current) use of Kala Marks NP antibiotics [...] 03/15/2019 L97.529 Non-pressure chronic ulcer of other Lucsa St MD part of left foot with u 03/15/2019 Z79.4 [facility] (current) use of insulin [facility] MD 03/13/2019 L97.529 Non-pressure chronic ulcer oth prt Pablo Elizabeth MD left foot w unsp severity 03/13/2019 E11.621 Type 2 diabetes mellitus with foot Pablo Elizabeth MD ulcer 03/07/2019 E11.621 Type 2 diabetes mellitus with foot Lulú Ferreira, RPA-C ulcer 03/07/2019 L97.529 Non-pressure chronic ulcer of other Lulú Ferreira, RPA-C part of left foot with u 03/01/2019 L97.529 Non-pressure chronic ulcer of other Pablo Elizabeth MD part of left foot with u 03/01/2019 E11.621 Type 2 diabetes mellitus with foot Pablo Elizabeth MD ulcer 02/24/2019 L97.529 Non-pressure chronic ulcer oth prt Maddy Marker, RPA-C left foot w unsp severity 02/24/2019 Z79.4 [facility] (current) use of insulin Maddy Marker, RPA-C 02/24/2019 E11.621 Type 2 diabetes mellitus with foot Maddy Marker, RPA-C ulcer 01/30/2019 Z01.818 Encounter for other preprocedural Gustavolauren Maldonado NP examination 01/30/2019 H26.9 Unspecified cataract Gustavo Maldonado NP 01/30/2019 J44.9 Chronic obstructive pulmonary Gustavolauren Maldonado NP disease, unspecified 01/30/2019 R19.7 Diarrhea, unspecified Gustavolauren Maldonado NP 01/30/2019 R21 Rash and other nonspecific skin Gustavolauren Maldonado NP eruption 01/30/2019 I10 Essential (primary) hypertension Gustavo Maldonado NP 01/30/2019 E11.42 Type 2 diabetes mellitus with Gustavo Maldonado NP diabetic polyneuropathy 01/23/2019 E11.649 Type 2 diabetes mellitus with Maddy Marker, RPA-C hypoglycemia without coma 01/23/2019 Z79.4 [facility] (current) use of insulin Maddy Marker, RPA-C 12/14/2018 Z79.4 [facility] (current) use of insulin [facility] MD 12/14/2018 E11.649 Type 2 diabetes mellitus with [facility] MD hypoglycemia without coma 12/12/2018 E11.621 Type 2 diabetes mellitus with foot Maddy Marker, RPA-C ulcer Plan of Treatment Future Appointment(s):07/17/2019 10:20 am - Gustavo Maldonado NP at [facility] Pablo Elizabeth, MDM86.672 Other chronic osteomyelitis, left ankle and footE11.621 Type 2 diabetes mellitus with foot ulcerReferral:Wound Clinic, Clinic/CenterFollow up:Follow Up: 2 weeks wound care referral Functional Status Description No Information Available Mental Status Description No Information Available Referrals Refer to Dr Reason for Referral Status Appt Date Wound Clinic left foot ulcer Created [address] [place] [address] [phone] Yohan Ruggiero MD chronic osteomyelitis left foot Sent 05/11/[address] [place] [address] [place] [address] [phone] Yohan Ruggiero MD left great toe infection Sent 03/20/[address] [place] [address] [place] [id number] [phone] Wound Clinic left great toe ulcer Created [address] [place], [place] [address] [phone] Wound Clinic chronic plantar foot ulcer Sent [address] [place], [place] [address] [phone] Pain Clinic chronic pain left foot Sent 04/11/[address] [place], [place] [address] [phone] Pablo Elizabeth MD Chronic left foot ulcer, indwelling Patient Notified 07/2019 HW, consideration of HW removal? [address] [place] [address] [phone] Gustavo Daly DO Sent [facility] [place] [address] [phone] [facility] T2DM needs carb counting help Received Partial for her pump [address] [place] [address] [phone]
--- OUTSIDE RECORDS SUMMARY | 2019-08-07 13:40 | XMS REPORT | Continuity of Care Document ---
:1965 External Reference #:[id number] Author Name Vida Marquis MD (transmitted by agent of provider Peg Perkins) Address [address] [place] [address] Care Team Providers Name Role Phone Zoya Patten MD - Internal Care Team Information [facility] Frankie Solis MD - Internal Care Team Information [facility] [employer] [phone] Medicine Problems Active Problems Provider Date Chronic [...] Use Denies Drug Use Smoking Status Reviewed: 07/14/19 Patient is a former smoker Exercise Type/Frequency Exercises sporadically clean house Allergies, Adverse Reactions, Alerts Active Allergies Reaction Severity Comments Date Aspirin migraine w/ generic nausea 10/20/2016 Latex break out 10/20/2016 Inactive Allergies NKDA 10/16/2016 Medications Active Medications SIG Qnty Indications Ordering Date Provider Doxycycline Hyclate 1 tab every 12 30tabs [facility] [place], 05/03/2019 hours 100mg Tablets Tramadol HCL 1 tablet every 12 10tabs [facility] [place], 04/25/2019 50mg hours as needed for Tablets pain Medical Id Dispense [address] MD 01/23/2019 Plate/Bracelet/Ster Id bracelet for ling Silver diabetes Misc Insulin use with 100units Lucas [facility] MD 12/30/2018 Syringe/0.3ML/30G X short-acting 5/16" insulin before 30G X 5/16" meals; substitution 0.3 ML [facility] [place] okay Glucagen Hypokit [...] nebulizer 90units J44.9 Gustavo Maldonado NP 08/15/2018 [place]/Albuterol four times a day as Sulfate needed [...] day as 108(90Base) mcg/Act needed Aerosol Pen Percy 12/03" use with lantus 100units [facility] [...] Probiotic & One capsule 60caps R19.7 Gustavo Madlonado NP 01/30/2019 - Acidophilus Formula twice daily 03/17/2019 Extra Strength Capsules Betamethasone apply thin layer 90gm R21 Gustavo Maldonado NP 01/30/2019 - Dipropionate to affected 05/16/2019 0.05% areas twice Cream daily. Tramadol HCL 1-2 tablets 28tabs E11.42 Gustavo Maldonado NP 01/30/2019 - 50mg every 12 hours 05/15/2019 Tablets as needed for pain. Immunizations Description No Information Available Vital Signs Date Vital Result Comment 07/14/2019 2:18pm Height 64 inches 5'4" Weight 172.00 lb Heart Rate 65 /min BP Systolic 135 mmHg BP Diastolic 79 mmHg Body Temperature 97.6 F O2 % BldC Oximetry 97 % BMI (Body Mass Index) 29.5 kg/m2 06/12/2019 11:02am Height 64 inches 5'4" Weight 180.00 lb Heart Rate 68 /min BP Systolic 124 mmHg BP Diastolic 66 mmHg BMI (Body Mass Index) 30.9 kg/m2 Results Test Date Facility Test Result H/L Range Note Basic Metabolic 05/18/2019 [facility] Sodium 140 mmol/L Normal 135-[address] [place] [address] [phone] Potassium 4.7 mmol/L Normal 3.5-5.0 Chloride 104 mmol/L Normal 101-111 Co2 Carbon Dioxide 32 mmol/L Normal 22-32 Anion Gap 4 mmol/L Normal 2-11 Glucose 289 mg/dL High 70-100 Blood Urea Nitrogen 23 mg/dL Normal 6-24 Creatinine 1.12 mg/dL High 0.51-0.95 BUN/Creatinine Ratio 20.5 High 8-20 Calcium 9.2 mg/dL Normal 8.6-10.3 Egfr Non- 51.3 >60 Egfr 62.1 >60 1 CBC Auto 05/18/2019 [facility] White Blood 5.7 10^3/uL Normal 3.5-10.[address] [place] [address] [phone] Red Blood Count 4.04 10^6/uL Normal 3.70-4.87 [...] Blood Cells % 0.0 Laboratory test 05/18/2019 [facility] C Reactive 3.00 mg/L Normal <8.[address] Protein [place], [place] [address] [phone] Urine Culture And 05/15/2019 [facility] Urine SEE RESULT [address] [place] [address] [phone] Ua Routine 05/15/2019 [employer] In House Ua Specific 1.025 [place]ham Ua PH 5 Ua Color yellow Ua Appera clear Ua WBC trace Ua Protein 500 Ua Glucose 1000 Ua Ketones negative Ua Bilirubin negative Ua Urobilinogen normal Ua Nitrite negative Ua Occult Blood trace Laboratory test 04/25/2019 [facility] Point of Care 221 mg/dL High 70-100 [address] [place] [address] [phone] Laboratory test 04/25/2019 [facility] Point of Care 275 mg/dL High 70-100 [address] Glucose [place], [place] [address] [phone] Laboratory test 04/25/2019 [facility] Surgical SEE RESULT [address] Pathology BELOW [place], [place] [address] [phone] Laboratory test 04/25/2019 [facility] Tissue Culture SEE RESULT [address] & [place] [address] [phone] Wound 04/25/2019 [facility] Wound/Misc SEE RESULT 7 Culture/Sensi [address] [place] [address] Stain [phone] Laboratory test 04/25/2019 [facility] Anaerobic SEE RESULT [address] [place] [place] [address] [phone] Laboratory test 04/25/2019 [facility] Point of Care 264 mg/dL High 70-100 [address] [place] [address] [phone] Basic Metabolic 04/25/2019 [facility] Glucose 426 mg/dL High 70-[address] [place] [address] [phone] Sodium 137 mmol/L Normal 135-145 Potassium 4.6 mmol/L Normal 3.5-5.0 Chloride 104 mmol/L Normal 101-111 Co2 Carbon Dioxide 24 mmol/L Normal 22-32 Anion Gap 9 mmol/L Normal 2-11 Blood Urea Nitrogen 24 mg/dL Normal 6-24 Creatinine 0.97 mg/dL High 0.51-0.95 BUN/Creatinine Ratio 24.7 High 8-20 Calcium 8.9 mg/dL Normal 8.6-10.3 Egfr Non- 60.5 >60 Egfr 73.3 >60 10 Laboratory 04/25/2019 [facility] Glucose 426 High 70-100 test finding [address] Confirmatory mg/dL [place], [place] [address] [phone] Laboratory 04/25/2019 [facility] Point of Care 424 Critical 70 -100 11 test finding [address] Glucose mg/[place] [address] [phone] Laboratory 02/07/2019 [facility] Point of Care 127 High 70- 100 12 test finding [address] Glucose mg/[place] [address] [phone] Laboratory 01/30/2019 [facility] In House Hemoglobin A1c 8.6% High 5-7 test finding 1 Because ethnic data is [...] (or dialysis) 2 SEE RESULT BELOW Name: LESLY GILES : [address]: Gustavo Maldonado NP Acct: [id number] Unit: [id number] AGE: 53 Location: [facility] Re05/15/19 SEX: F Status: REG REF SPEC: [id number] ASHLEY: 05/15/191439 SUBM DR: Gustavo Maldonado NP REQ: [id number] RECD: 05/15/19 STATUS: COMP _ SOURCE: URINE SPDESC: ORDERED: Urine Culture COMMENTS: [id number] Urine Source: Random Procedure Result Reported Site Urine Culture Final 05/17/19- 935 ML No growth of clinically significant organisms * ML - Main Lab . END OF REPORT DEPARTMENT OF PATHOLOGY, [address] [place] [address] Renaldo Santos M.D. Director [facility] # [id number] 3 Client Relations Specialist: [id number] [phone] Client Relations Specialist: [id number] 5 SEE RESULT BELOW Name: LESLY GILES : [address]: Pablo Elizabeth MD Acct: [id number] Unit: [id number] AGE: 53 Location: [place] Re04/25/19 SEX: F Status: REG SDC SPEC: [id number] ASHLEY: 04/25/19- SUBM DR: Pablo Elizabeth MD REQ: [id number] RECD: 04/25/191243 STATUS: SOUT _ ORDERED: LEVEL [...] There is an inscription which reads [id number]. Received separately in the [...] 1027 END OF REPORT DEPARTMENT OF PATHOLOGY, [address] [place] [address] Renaldo Santos M.D. Director [facility] # [id number] 6 SEE RESULT BELOW Name: LESLY GILES : [address]: Pablo Elizabeth MD Acct: [id number] Unit: [id number] AGE: 53 Location: [place] Re04/25/19 SEX: F Status: REG SDC SPEC: [id number] ASHLEY: 04/25/19-[address]: Pablo Elizabeth MD REQ: [id number] RECD: 04/25/19 STATUS: CORAZON PIZANO DR: Zoya [...] CONTINUED ON NEXT PAGE DEPARTMENT OF PATHOLOGY, [address] [place] [address] Renaldo Santos M.D. Director [facility] # [id number] Patient: LESLY GILES [id number] (Continued) Specimen: [id number] Collected: 04/25/19 Received: 04/25/19 (Continued) Procedure Result [...] These antibiotics are not available in the [facility] Formulary Contact the Microbiology Department for any additional antibiotic reporting. Anaerobic Culture Final 04/29/191121 ML Anaerobe Culture No Anaerobes Day 4 * ML - Main Lab . END OF REPORT DEPARTMENT OF PATHOLOGY, [address] [place] [address] Renaldo Santos M.D. Director [facility] # [id number] 7 SEE RESULT BELOW Name: LESLY GILES Jose : [address]: Pablo Elizabeth MD Acct: [id number] Unit: [id number] AGE: 53 Location: [place] Re04/25/19 SEX: F Status: REG SDC SPEC: [id number] ASHLEY: 04/25/19 [facility] [address]: Pablo Elizabeth MD REQ: [id number] RECD: 04/25/19 STATUS: CORAZON PIZANO DR: Zoya [...] CONTINUED ON NEXT PAGE DEPARTMENT OF PATHOLOGY, [address] [place] [address] Renaldo Santos M.D. Director [facility] # [id number] Patient: LESLY GILES [id number] (Continued) Specimen: [id number] Collected: 04/25/19 Received: 04/25/19 (Continued) Procedure Result Reported Site Wound/Misc Culture Final (continued) 04/29/19 111 1. STAPHYLOCOCCUS AUREUS (continued) M.I.C. RX --------- ------ Cefazolin-Deduced S * These antibiotics are not available in the [facility] Formulary Contact the Microbiology Department for any additional antibiotic reporting. * ML - Main Lab . END OF REPORT DEPARTMENT OF PATHOLOGY, [address] [place] [address] Renaldo Santos M.D. Director [facility] # [id number] 8 SEE RESULT BELOW Name: LESLY GILES : [address]: Pablo Elizabeth MD Acct: [id number] Unit: [id number] AGE: 53 Location: [place] Re04/25/19 SEX: F Status: REG SDC SPEC: [id number] ASHLEY: 04/25/[address]: Pablo Elizabeth MD REQ: [id number] RECD: 04/25/19 STATUS: CORAZON PIZANO DR: Zoya Patten MD _ SOURCE: WOUND SPDESC:LEFT ORDERED: Anaerobic Cult Procedure Result Reported Site Anaerobic Culture Final 04/29/19- 1119 ML Anaerobe Culture No Anaerobes Day 4 * ML - Main Lab . END OF REPORT DEPARTMENT OF PATHOLOGY, [address] [place] [address] Renaldo Santos M.D. Director [facility] # [id number] 9 Client Relations Specialist: [id number] 10 Because ethnic data is not always [...] 5 Kidney failure <15 (or dialysis) 11 Client Relations Specialist: [id number] 12 Client Relations Specialist: [id number] Procedures Date Code Description Status 06/08/2019 241782848 Diabetic Retinal Eye Exam Completed 04/25/201934048 Excise Biopsy Bone Deep Completed 04/25/2019 Excise Biopsy Bone Deep Completed 04/25/2019 09003 Debridement Tissue/Muscle/Bone Completed 04/25/2019 02047 Debridement Tissue/Muscle/Bone Completed 03/16/2019 816430808 Diabetic Retinal Eye Exam Completed 02/24/2019 90329 Glucose Monitoring Interpetation And Report Completed 09/22/2018 023958010 Diabetic Retinal Eye Exam Completed 11/02/2017 110198247 Diabetic Retinal Eye Exam Completed 06/18/2017 606252701 Diabetic Retinal Eye Exam Completed Medical Devices Description No Information Available Encounters Type Date Location Provider Dx Diagnosis Office Visit 07/14/2019 [facility] Internal Vida Marquis, Z01.818 Encounter for other 2:30p Medicine - Ccmob preprocedural examination E11.621 Type 2 diabetes mellitus with foot ulcer Office Visit 05/29/2019 [facility] Clara M86.672 Other chronic 11:30a Orthopedics at osteomyelitis, left [place] ankle and foot E11.621 Type 2 diabetes mellitus with foot ulcer Z47.89 Encounter for other orthopedic aftercare Office Visit 05/17/2019 [facility] Kala Alvarez M86.672 Other chronic 3:00p For Infectious Marks, CONSTRUCTION TECHNICIAN osteomyelitis, left Diseases ankle and foot E11.621 Type 2 diabetes mellitus with foot ulcer Z79.2 penitentiary (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 E11.69 Type 2 diabetes mellitus with other specified complication L97.529 Non-pressure chronic ulcer oth prt left foot w unsp severity Office Visit 05/15/2019 2:00p [facility] Internal Gustavo Maldonado, R35.0 Frequency of Medicine - Ccmob CONSTRUCTION TECHNICIAN micturition M54.5 Low back pain J44.9 Chronic obstructive pulmonary disease, unspecified I10 Essential (primary) hypertension Office Visit 04/12/2019 [facility] Clara L97.529 Non-pressure 3:15p [facility] w [facility] E11.621 Type 2 diabetes mellitus with foot ulcer T84.84xA Pain due to internal orthopedic prosth dev/grft, init L03.116 Cellulitis of left lower limb Office Visit 03/20/2019 2:20p [facility] Teresa Iqbal E11.621 Type 2 Infectious Tom Ruggiero diabetes Diseases mellitus with foot ulcer L97.521 Non-prs chronic ulcer oth prt l foot limited to brkdwn skin Office Visit 03/15/2019 11:00a [facility] [address], E11.621 Type 2 Endocrinology of [facility] diabetes mellitus with foot ulcer L97.529 Non-pressure chronic ulcer oth prt left foot w unsp severity 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 Office Visit 03/13/2019 [facility] Elizabeth, L97.529 Non-pressure 10:45a Orthopedics at chronic ulcer oth [place] prt left foot w unsp severity E11.621 Type 2 diabetes mellitus with foot ulcer Office Visit 03/07/2019 1:45p [facility] Lulú Ferreira, E11.621 Type 2 at [place] RPA-C diabetes mellitus with foot ulcer L97.529 Non-pressure chronic ulcer oth prt left foot w unsp severity Office Visit 03/01/2019 [facility] Raygozagregory Elizabeth, L97.529 Non-pressure 1:30p Orthopedics at chronic ulcer oth [place] prt left foot w unsp severity E11.621 Type 2 diabetes mellitus with foot ulcer Office Visit 02/24/2019 9:30a [facility] Diabetes and Maddy 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 Endocrinology of [facility] Marker, RPA-C (current) use of insulin L97.529 Non-pressure chronic ulcer ot prt left foot w unsp severity E11.621 Type 2 diabetes mellitus with foot ulcer Office Visit 01/30/2019 10:00a [facility] Internal Gustavolauren Maldonado, Z01.818 Encounter for other Medicine - CONSTRUCTION TECHNICIAN preprocedural Ccmob examination H26.9 Unspecified cataract J44.9 Chronic obstructive pulmonary disease, unspecified R19.7 Diarrhea, unspecified R21 Rash and other nonspecific skin eruption I10 Essential (primary) hypertension E11.42 Type 2 diabetes mellitus with diabetic polyneuropathy Office Visit 01/23/2019 [facility] and Maddy E11.649 Type 2 diabetes 2:00p Endocrinology of [place], RPA-C mellitus with Polygraph Technician hypoglycemia without coma 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 Assessments Date Code Description Provider 07/14/2019 Z01.818 Encounter for other preprocedural Vida [...] foot Kala Marks NP ulcer 05/17/2019 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.2 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 of Kala Marks NP antibiotics 05/17/2019 E11.69 Type 2 diabetes mellitus with other Kala Marks NP specified complication 05/17/2019 L97.529 Non-pressure chronic ulcer of other Kala Marks NP part of left foot with unspecified severity 05/15/2019 R35.0 Frequency of micturition Gustavolauren Maldonado NP 05/15/2019 M54.5 Low back pain Gustavolauren Maldonado NP 05/15/2019 J44.9 Chronic obstructive pulmonary Gustavo AYESHA Maldonado disease, unspecified 05/15/2019 I10 Essential (primary) hypertension [...] of left foot with u 03/15/2019 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 Lucas St MD [...] left foot w unsp severity 02/24/2019 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 Maddy Marker, RPA-C 02/24/2019 E11.621 Type 2 diabetes mellitus with foot Maddy Marker, RPA-C ulcer 01/30/2019 Z01.818 Encounter for other preprocedural Gustavolauren Maldonado NP examination 01/30/2019 H26.9 Unspecified cataract Gustavolauren Maldonado CONSTRUCTION TECHNICIAN 01/30/2019 J44.9 Chronic obstructive pulmonary Gustavo AYESHA Maldonado disease, unspecified 01/30/2019 R19.7 Diarrhea, unspecified Gustavo Erica, CONSTRUCTION TECHNICIAN 01/30/2019 R21 Rash and other nonspecific skin Gustavolauren Maldonado NP eruption 01/30/2019 I10 Essential (primary) hypertension Gustavolauren Maldonado NP 01/30/2019 E11.42 Type 2 diabetes mellitus with Gustavolauren Maldonado NP diabetic polyneuropathy 01/23/2019 E11.649 Type 2 diabetes mellitus with Maddy Marker, RPA-C hypoglycemia without coma 01/23/2019 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 Maddy Marker, RPA-C Plan of Treatment Future Appointment(s):08/02/2019 10:20 am - Gustavo Maldonado NP at [facility] Internal Medicine - [facility]07/19/2019 2:30 pm - Pablo Elizabeth MD at [facility] [place]207/14/2019 - Vida Marquis MDZ01.818 Encounter for other preprocedural examinationNew Xrays:Chest PA & Lat 2 VWS, Ordered: Comments:Please complete blood work prior to leaving the office todayPlease have chest x-ray doneE11.621 Type 2 diabetes mellitus with foot ulcerComments: Please have labs and urine done today Functional Status Description No Information Available Mental Status Description No Information Available Referrals Refer to Reason for Referral Status Appt Date Wound Clinic left foot ulcer Sent [address] [place] [address] [phone] Yohan Ruggiero MD chronic osteomyelitis left foot Sent 05/11/[address] [place] [address] [place] [address] [phone] Yohan Ruggiero MD left great toe infection Sent 03/20/[address] [place] [address] [place] [address] [phone] Wound Clinic left great toe ulcer Created [address] [place], [place] [address] [phone] Wound Clinic chronic plantar foot ulcer Sent [address] [place], [place] [address] [phone] Pain Clinic chronic pain left foot Sent 04/11/[address] [place], [place] [address] [phone] Pablo Elizabeth MD Chronic left foot ulcer, indwelling Patient Notified 07/2019 HW, consideration of HW removal? [address] [place] [address] [phone] Gustavo Daly, Patient Declined [address] [place] [address] [phone]
[2019-08-07 15:08] LABS: ABS Basophils 0.1 10^3/ul (0-0.2); ABS Eosinophils 0.2 10^3/ul (0-0.6); ABS Lymphocytes 1.1 10^3/ul (1.0-4.8); ABS Monocytes 0.5 10^3/ul (0-0.8); ABS Neutrophils 6.3 10^3/ul (1.5-7.7); Eosinophil % 2.1 %; Hematocrit 32 % (35-47); Hemoglobin 10.6 g/dL (12.0-16.0); Lymphocyte % 13.9 %; Mean Corpuscular HGB Conc 33 g/dL (31-36); Mean Corpuscular Hemoglobin 27 pg (27-31); Mean Corpuscular Volume 81 fL (80-97); Mean Platelet Volume 7.2 fL (7.4-10.4); Platelet Count 274 10^3/uL (150-450); Red Blood Count 3.98 10^6 /uL (3.70-4.87); Red Cell Distribution Width 15 % (10-15); White Blood Count 8.1 10^3/uL (3.5-10.8)
--- NOTE | 2019-08-07 15:32 | ED ---
Lower Extremity - HPI Summary HPI Summary: 54 year old female with a significant past medical history of insulin dependant diabetes presents to the emergency department sent from her orthopedic appointment with Dr. Sapp with an ulcer on her left foot on the plantar surface near the proximal aspect of the first toe. He sent her today with concern of progression of the ulcer with a possibility of osteomyelitis. She states this ulcer began 6 months ago, and she has been treated by Dr. Sapp since then, including therapy with multiple antimicrobials. She reports 8/10 pain in her left foot which is worse with ambulation. She states the ulcer often "leaks" and has a foul odor. She states she has been having difficulty controlling her blood sugar which has been running around 300 for the last few weeks. She denies fevers, chills, chest pain, abdominal pain, shortness of breath, pain with urination. She states she is currently taking antibiotics for a kidney infection. - History of Current Complaint Chief Complaint: EDExtremityLower Stated Complaint: LT FOOT ULCER PER PT Time Seen by Provider: 08/07/19 15:31 Hx Obtained From: Patient Hx Last Menstrual Period: unknown Onset of Pain: Prior to Arrival Onset/Duration: Still Present Severity Initially: Moderate Severity Currently: Moderate Pain Intensity: 5 Pain Scale Used: 0-10 Numeric Character Of Pain: Dull, Aching Associated Signs And Symptoms: Positive: Swelling, Redness. Negative: Fever Aggravating Factor(s): Standing, Ambulation, Movement, Weight Bearing, Stairs Alleviating Factor(s): Rest Able to Bear Weight: Yes - Allergies/Home Medications Allergies/Adverse Reactions: Allergies Allergy/AdvReac Type Severity Reaction Status Date / Time miconazole Allergy Severe Blisters Verified 08/07/19 15:48 latex Allergy Intermediate Hives Verified 08/07/19 15:48 aspirin Allergy GI Upset Verified 08/07/19 15:48 Home Medications: Home Medications Ciprofloxacin TAB* [Cipro 250 MG Tab*] 250 mg PO BID 08/07/19 [History Confirmed 08/07/19] Insulin Lispro [Admelog] 0 units SUBCUT SEE INSTRUCTIONS MDD 85 units 08/07/19 [ History Confirmed 08/07/19] PMH/Surg Hx/FS Hx/Imm Hx Endocrine/Hematology History: Reports: Hx Diabetes - HAS AN INSULIN PUMP Denies: Hx Anticoagulant Therapy, Hx Blood Disorders, Hx Blood Transfusions, Hx Bone Marrow Disease, Hx Thyroid Disease, Hx Anemia, Hx Unexplained Bleeding Cardiovascular History: Reports: Hx Hypertension Denies: Hx Pacemaker/ICD, Other Cardiovascular Problems/Disorders Respiratory History: Reports: Hx Chronic Obstructive Pulmonary Disease (COPD) - DX ON 10/2016, Other Respiratory Problems/Disorders - HYPOXIA, USES O2 AT 2.5 L NC PRN Denies: Hx Asthma GI History: Denies: Hx Ulcer, Other GI Disorders History: Reports: Hx Kidney Infection, Other Problems/Disorders - URINARY RETENTION Denies: Hx Dialysis, Hx Renal Disease Musculoskeletal History: Reports: Hx Arthritis - BILATERAL HANDS, BACK, Hx Back Problems, Other Musculoskeletal History - INCARCERATED RIGHT INGUINAL HERNIA- 2016.LEFT BIG TOE HARDWARE TO BE REMOVED Sensory History: Reports: Hx Cataracts - right eye, Hx Vision Problem - Blurriness Denies: Hx Contacts or Glasses, Hx Eye Injury, Hx Eye Prosthesis, Hx Glaucoma , Hx Legally Blind, Hx Macular Degeneration, Hx Deafness, Hx Hearing Aid, Hx Hearing Problem, Other Sensory Impairments Opthamlomology History: Reports: Hx Cataracts - right eye, Hx Vision Problem - Blurriness Denies: Hx Contacts or Glasses, Hx Eye Injury, Hx Eye Prosthesis, Hx Glaucoma , Hx Legally Blind, Hx Macular Degeneration, Other Sensory Impairments Neurological History: Reports: Hx Nerve Disease - PERIPHERAL NEUROPATHY, Hx Peripheral Neuropathy, Hx Seizures - 05/2018 on life support LAST AND ONLY TIME , Other Neuro Impairments/Disorders - Numbness and tingling Denies: Hx Dementia Psychiatric History: Reports: Hx Anxiety, Hx Depression Denies: Hx Panic Disorder - Cancer History Hx Chemotherapy: No - Surgical History Surgery Procedure, Year, and Place: LEFT FOOT BIG TOE - [facility] - SCREWS 2009;. HERNIA REPAIR 10/15/16 INCARCERATED INDIRECT INGUINAL HERNIA;. left cataract with IOL 01/2019 Hx Anesthesia Reactions: No Infectious Disease History: No Infectious Disease History: Denies: Hx Hepatitis, Hx Human Immunodeficiency Virus (HIV), History Other Infectious Disease, Traveled Outside the [place] in Last 30 Days - Family History Known Family History: Positive: Diabetes - Social History Alcohol Use: None Hx Substance Use: Yes Substance Use Type: Reports: None Substance Use Comment - Amount & Last Used: Hx Tobacco Use: Yes Smoking Status (MU): Former Smoker Type: Cigarettes Amount Used/How Often: 1 PACK PER 3 DAYS Have You Smoked in the Last Year: Yes Review of Systems Constitutional: Negative Eyes: Negative Cardiovascular: Negative Respiratory: Negative Gastrointestinal: Negative Genitourinary: Negative Positive: Decreased ROM - @ left great toe Negative: Rash Neurological: Negative Psychological: Normal All Other Systems Reviewed And Are Negative: Yes Physical Exam Triage Information Reviewed: Yes Vital Signs On Initial Exam: Initial Vitals Temp Pulse Resp BP Pulse Ox 98 F 73 18 192/98 97 08/07/19 13:31 08/07/19 13:31 08/07/19 13:31 08/07/19 13:31 08/07/19 13:31 Vital Signs Reviewed: Yes Appearance: Positive: Well-Appearing, No Pain Distress, Well-Nourished Skin: Positive: Warm, Skin Color Reflects Adequate Perfusion, Other - Left foot has trace erythema surrounding the left great toe. Skin on the dorsal and plantar aspect of the left foot is warm to the touch. +1 pitting edema to the plantar and dorsal aspect of the left foot. There is a 2 cm circumfrencial unstagable ulcer to the plantar aspect of the left foot near the MTP joint. Significant edema noted to the left great toe. 2+ pulses at the DP, BL. Procedures - Sedation Patient Received Moderate/Deep Sedation with Procedure: No Diagnostics - Vital Signs Vital Signs Temp Pulse Resp BP Pulse Ox 08/07/19 13:31 98 F 73 18 192/98 97 - Laboratory Lab Results: Lab Results 08/07/19 08/07/19 Range/Units 14:54 14:54 WBC 8.1 (3.5-10.8) 10^3/uL RBC 3.98 (3.70-4.87) 10^6 /uL Hgb 10.6 L (12.0-16.0) g/dL Hct 32 L (35-47) % MCV 81 (80-97) fL MCH 27 (27-31) pg MCHC 33 (31-36) g/dL RDW 15 (10-15) % Plt Count 274 (150-450) 10^3/uL MPV 7.2 L (7.4-10.4) fL Neut % (Auto) 77.5 % Lymph % (Auto) 13.9 % [place] % (Auto) 5.8 % Eos % (Auto) 2.1 % Baso % (Auto) 0.7 % Absolute Neuts (auto) 6.3 (1.5-7.7) 10^3/ul Absolute Lymphs (auto) 1.1 (1.0-4.8) 10^3/ul Absolute Monos (auto) 0.5 (0-0.8) 10^3/ul Absolute Eos (auto) 0.2 (0-0.6) 10^3/ul Absolute Basos (auto) 0.1 (0-0.2) 10^3/ul Absolute Nucleated RBC 0.0 10^3/ul Nucleated RBC % 0.0 Sodium Pending Potassium Pending Chloride Pending Carbon Dioxide Pending Anion Gap Pending BUN Pending Creatinine Pending Est GFR ( Amer) Pending Est GFR (Non-Af Amer) Pending BUN/Creatinine Ratio Pending Glucose Pending Calcium Pending Total Bilirubin Pending AST Pending ALT Pending Alkaline Phosphatase Pending Troponin I 0.00 (<0.04) ng/mL Total Protein Pending Albumin Pending Globulin Pending Albumin/Globulin Ratio Pending Result Diagrams: 08/08/19 05:42 08/08/19 05:42 Lab Statement: Any lab studies that have been ordered have been reviewed, and results considered in the medical decision making process. Lower Extremity Course/Dx - Course Course Of Treatment: PT was evaluated for a 2cm unstagable circumfrencial ulcer to the plantar aspect of her left foot near the MTP joint in the emergency department. Pt was sent from Dr. Milton office this afternoon due to a concern for osteomyelitis. PT was seen an evaluated. Vitals are noted, and stable. PT is afebrile. Labratory studies and an xray was obtained for investigation of the patients symptoms. Labs returned showing. No leukocytosis with WBC 8.1 and no neutrophilic shift. ESR is elevated at 66, and CRP is normal at 6.12. H/H is 10.6/32 which is low, however this is her baseline and appears to be a chronic issue. Renal function is reduced with BUN 25 and creatinine 1.26, which is also her baseline. Corrected sodium returned as 141 and blood glucose was 677. She was given 8 units of insulin for BG correction as well as 2L of normal saline. Xray of the foot showed no appreciable erosion or periosteal reaction. Findings of osteomyelitis are a late finding, and further imaging such as an MRI was suggested. A wound culture was obtained for gram staining, and the PT was given IV zosyn for infection prohpylaxis. Dr. Chapman was consulted for admission of the patient, he suggested MRI for further evaluation. Dr. Brunner was consulted for admission due to the patients hyperglycemic state. Pt understands she must be admitted for further evaluation and managment and agrees with the plan. - Diagnoses Differential Diagnosis/HQI/PQRI: Positive: Cellulitis, Infection, Osteomyelitis , Septic Arthritis Provider Diagnoses: Foot ulcer, left - Physician Notifications Discussed Care Of Patient With: Khai Chapman - Dr. Brunner Time Discussed With Above Provider: 15:59 Instructed by Provider To: Admit As Inpatient Admit/Transition Orders Completed By ED Provider: No Discharge ED - Sign-Out/Discharge Documenting (check all that apply): Patient Departure - Discharge Plan Condition: Stable Disposition: ADMITTED TO [facility] - Billing Disposition and Condition Condition: STABLE Disposition: Admitted to [facility] - Attestation Statements Provider Attestation: I was available for consultation for this patient. I did not evaluate the patient, or participate in any medical decision making or disposition decisions unless I am specifically named in the chart as having consulted on the patient. If I have consulted on the patient, please see my own ED note on the patient encounter. Alexia Carvalho MD
[2019-08-07 15:39] LABS: Activated Partial Thrombo Time 30.3 seconds (26.0-38.0); Fibrinogen 541.6 mg/dL (110.8-404.3); INR 0.89 (0.82-1.09)
[2019-08-07 15:48] LABS: Albumin 3.3 g/dL (3.2-5.2); BUN/Creatinine Ratio 19.8 (8-20); EGFR Non-African American 44.6 (>60); Globulin 3.4 g/dL (2-4); Potassium 4.6 mmol/L (3.5-5.0); Total Bilirubin 0.7 mg/dL (0.2-1.0); Total Protein 6.7 g/dL (6.4-8.9)
[2019-08-07] MEDS ORDERED: Lactated Ringers 1000 ML Bag* 1,000 ML IV SCH (16:00)
[2019-08-07] MEDS ORDERED: NS 0.9% 1000 ML** 2,000 ML IV ONE (16:04)
[2019-08-07] MEDS ORDERED: Piperacillin/Tazobac ADVAN(*) 3.375 GM in NS 0.9% 100 ML* 100 ML IVPB ONE (16:05)
[2019-08-07] MEDS ORDERED: Insulin REGULAR(*) 1 UNITS UNIT IV PUSH ONE ×2 (16:11→16:20)
[2019-08-07] MEDS ORDERED: Vancomycin(*) 1,000 MG in NS 0.9% 250 ML* 250 ML IVPB ONE (16:42)
[2019-08-07] MEDS ORDERED: Dextrose 50% VIAL 50 ml IV PUSH PRN ×2 (16:42→16:56)
[2019-08-07] MEDS ORDERED: Ondansetron INJ* 2 MG/ML VIAL IV PRN (16:42)
[2019-08-07] MEDS ORDERED: Albuterol/Ipratropium NEB.SOL* Albuterol 2.5 MG/Ipratropium 0.5 MG 3 ML INH PRN (16:59)
[2019-08-07] MEDS ORDERED: Vancomycin per Pharmacy* NOTE FOLLOW UP SCH (17:00)
[2019-08-07] MEDS ORDERED: Cefepime 1 GM in Dextrose(*) 1 GM/50 ML BAG IV SCH (17:00)
[2019-08-07] MEDS ORDERED: Insulin GLARGINE(*) 1 UNITS UNIT SUBCUT SCH (17:00)
[2019-08-07] MEDS ORDERED: Vancomycin(*) 1,250 MG in NS 0.9% 250 ML* 250 ML IVPB ONE (17:13)
[2019-08-07 17:38] LABS: C Reactive Protein 6.12 mg/L (<8.01)
[2019-08-07 17:48] LABS: Erythrocyte Sed Rate 66 mm/Hr (0-29)
[2019-08-07] MEDS: Insulin GLARGINE(*) 1 UNITS UNIT SUBCUT SCH (18:03)
[2019-08-07] MEDS: Mometasone/Formoter 200/5 MDI INH SCH (19:26)
[2019-08-07] MEDS: Insulin LISPRO* 1 UNITS UNIT SUBCUT SCH ×2 (20:27→21:47)
[2019-08-07] MEDS: NS 0.9% 1000 ML** 1,000 ML IV SCH (21:10)
[2019-08-07] MEDS: Cefepime 2 GM in Dextrose(*) 2 GM/50 ML BAG IV SCH (21:11)
--- NOTE | 2019-08-07 21:33 | HP ---
CC: Dr. Khai Chapman; Dr. Yohan Shaw; Dr. Zoya Patten * ADMISSION HISTORY AND PHYSICAL: DATE OF ADMISSION: 08/07/19 MY ATTENDING PHYSICIAN WHILE IN THE HOSPITAL: Dr. Piotr Brunner.* (DICTATED BY DAREN EUCEDA) CONSULTING ORTHOPEDIST: Dr. Khai Chapman. CONSULTING INFECTIOUS DISEASE DOCTOR: Dr. Yohan Shaw. PRIMARY CARE PROVIDER: Dr. Zoya Patten. CHIEF COMPLAINT: Worsening toe ulcer. HISTORY OF PRESENT ILLNESS: Ms. Mcgregor is a 54-year-old female with a past medical history significant for diabetes mellitus type 2 with hypertension, peripheral neuropathy, COPD, and a toe wound that has been present for several months. She states all through the summer that has been getting progressively worse and not healing despite antibiotics and wound care. The patient states that she has been wrapping the toe daily and applying a cream to it. She does not know what type of cream it was. The patient states she has worsening pain in her foot and that her neuropathy pain has been mainly in her left foot, now is also in her right foot and that is quite painful. The patient has been having worsening chills over the last several days. The patient states it has been intermittent, sometimes severe. The patient also notes that her blood glucose control has been getting much worse, though she cannot state exact numbers. Her most recent endocrinology followup shows, from 07/27/19, that her blood glucose was over 400 frequently and sometimes over 600. The patient's most recent A1c was 14. The patient states that she recently returned from a trip from [place], and ever since then, her blood glucose has just been out of control. The patient denies any other recent changes to her diet or changes to her medications. The patient denies any chest pain or shortness of breath. No redness traveling up her leg. No abdominal pain or diarrhea. The patient had urinary frequency and dysuria and was started on Cipro, which she has completed at this point. The patient today was seen by her orthopedist, Dr. Elizabeth, who sent her into the emergency department due to worsening foot wound. In the emergency department, the patient was found to have blood glucose at 677 and a worsening toe wound. Due to the concern for diabetic foot ulcer, we are asked to evaluate the patient for admission to the hospital. PAST MEDICAL HISTORY: Diabetes mellitus type 2, poorly controlled; hypertension ; peripheral neuropathy due to diabetes; COPD; osteoarthritis; anxiety; depression; chronic kidney disease; history of drug-induced seizure; hyperlipidemia; kidney stones. PAST SURGICAL HISTORY: Left foot great toe juan carlos, hardware removal on 04/26/19, right inguinal hernia repair due to incarcerated hernia. MEDICATIONS: Per most recent primary care note: 1. Tramadol 50 mg p.o. every 12 hours as needed. 2. Insulin pump. 3. Advair Diskus 500/50 one puff twice daily. 4. Basaglar 40 units twice daily if pump fails. 5. Ipratropium nebulizer as needed 4 times daily. 6. Ventolin inhaler. ALLERGIES: LATEX, MICONAZOLE, ASPIRIN. FAMILY HISTORY: The patient's family history is unknown. She is adopted. SOCIAL HISTORY: The patient is a former smoker. The patient smoked only occasionally over the years she states, but smoked for a long period of time and quit 6 months ago. The patient denies alcohol abuse and used to smoke marijuana that she has not quit. The patient is on disability. The patient is and lives with 5 children. The patient's surrogate decision maker would be her , Forrest Mcgregor. REVIEW OF SYSTEMS: A 10-point review of system was reviewed and is negative except as above in the HPI. PHYSICAL EXAMINATION GENERAL: The patient is a 54-year-old female who appears older than her stated age and sitting comfortably in bed, in no acute distress. VITAL SIGNS: Temperature 98.0, pulse rate 64, oxygen saturation 91, blood pressure 196/90. HEENT: Head: Normocephalic, atraumatic. Sclerae anicteric. No conjunctival injection. Nasal mucosa moist. Oral mucosa moist. No pharyngeal erythema, discharge, or exudate. NECK: Supple, nontender. No lymphadenopathy. No carotid bruit auscultated. No JVD. RESPIRATORY: Clear to auscultation bilaterally. No wheezes, rales or rhonchi. Good air exchange bilaterally. HEART: Regular rate and rhythm. No clicks, murmurs, gallops, or rubs. Pulses are 2+ in the bilateral dorsalis pedis, posterior tibialis, and radial areas. ABDOMEN: Soft, nontender, nondistended. Bowel sounds present, normoactive in all 4 quadrants. No hepatosplenomegaly. No abdominal bruits auscultated. No hepatojugular reflux. GENITOURINARY: No suprapubic or CVA tenderness. NEUROLOGIC: Cranial nerves II through XII intact. Peripheral neuropathy. No other focal deficits. Drowsy, but arousable and oriented x3. PSYCHIATRIC: Pleasant and cooperative. SKIN: Large open wound approximately 2 cm round and 1 cm deep with surrounding erythema, swelling. Bilateral petechial appearing ulcer on the legs without other surrounding changes. DIAGNOSTIC STUDIES/LAB DATA: White blood cell count 8.1, hemoglobin 10.6. INR 0.89, aPTT 30.3. Fibrinogen 541.6. Sodium 133, potassium 4.6, chloride 98 , carbon dioxide 27, anion gap 7, BUN 25, creatinine 1.26, glucose 677, lactic acid 1.2, calcium 9.0. Bilirubin 0.7, AST 11, ALT 10, alkaline phosphatase 114. Troponin I 0.00. CRP pending. Protein 3.7, albumin 3.3, globulin 3.4. TSH 4.25. Studies foot x-ray read as no acute osseous injury, no appreciable erosion or periosteal reaction. ASSESSMENT AND PLAN: Impression: Ms. Mcgregor is a 54-year-old female with past medical history significant for poorly controlled diabetes, hypertension, peripheral neuropathy, chronic obstructive pulmonary disease, and nonhealing left great toe ulcer who presents to the emergency department after being sent in from her orthopedist's office for concern for worsening in her ulcer and need for antibiotics and possible surgical intervention. 1. Infected diabetic foot ulcer worsening. The patient will be started on broad- spectrum antibiotics. The patient's wound does look infected and has a significantly pungent smell. The patient will be covered for methicillin- resistant Staphylococcus aureus, gram-negative bacteria, and anaerobes with vancomycin, cefepime, and Flagyl. This can be narrowed to avoid the acute kidney injury associated with vanco and Zosyn dosing. The patient has received 1 dose of Zosyn already, but this should be narrowed as soon as possible based on blood culture and wound culture results. The patient is not septic at this time. The patient received 2 L of fluid due to likely dehydration from severe hyperglycemia and possible hyperglycemic hyperosmolar state. The patient will be seen in consultation by Orthopedics and Infectious Disease. The patient has very good pulses to her feet and the contribution of peripheral arterial disease to this presentation is unlikely. The patient will have a wound care consult and further debridement will be deferred to Wound Care and Orthopedics. 2. Diabetes mellitus type 2, hyperglycemic hyperosmolar state. The patient has severely elevated blood glucose and is likely dehydrated from this causing slight elevation in her creatinine. The patient has received 2 L of fluids and will be continued on normal saline 100 mL an hour. While her blood sugar is this high, the patient had received 8 units while in hospital. The patient's predicted basal dose from her dental detail representative's notes is 40 twice daily if her pump fails. She will be started on this as well as scheduled mealtime insulin per her pump bolus dose as well as q.4 hours fingersticks with sliding scale due to the the likely need for additional insulin from her inflammatory state decreasing her insulin sensitivity. The patient will have a hemoglobin A1c checked. The patient's insulin sensitivity may improve once her infection is dealt with. 3. Hypertension. The patient is currently hypertensive, however, this may be related to being in the emergency department. The patient is not on any blood pressure medication at home. She may need blood pressure medication in the future based on her current blood pressure, however, no intervention will be taken at this time. 4. Chronic obstructive pulmonary disease. The patient will have inhalers as needed while in the hospital. The patient is not in acute exacerbation. The patient's home inhalers will be replaced with hospital formulary medications. 5. Peripheral neuropathy. The patient used to be on many medications for this. These appear to have been stopped due to concern for oversedation. This may need to be reintroduced with caution. 6. Anxiety, depression. The patient is also on many medications for these. This should be followed up outpatient with her primary care provider. 7. DVT prophylaxis. Lovenox subcu. 8. FEN. The patient will have consistent carbohydrate diet as well as heart healthy without caffeine. 9. Disposition. She will be admitted to the hospital inpatient with an estimated length of stay greater than 2 midnights. 10. Code status. The patient would like to be a full code. TIME SPENT: Approximately 60 minutes was spent on this admission, 30 of which was spent [id number] with the patient obtaining history and physical and discussing treatment plan. This plan was discussed with my attending, Dr. Piotr brunner, and he is in agreement. DAREN EUCEDA [id number]/[facility] #: [id number] DEWEY
[2019-08-07] MEDS: Enoxaparin(*) 40 MG/0.4 ML SYR SUBCUT SCH (21:51)
[2019-08-07] MEDS: metroNIDAZOLE IV 500 MG/100ML* 500 MG/100 ML BAG IVPB SCH (21:55)
[2019-08-08] MEDS: Insulin LISPRO* 1 UNITS UNIT SUBCUT SCH ×10 (02:55→22:17)
[2019-08-08] MEDS: Insulin GLARGINE(*) 1 UNITS UNIT SUBCUT SCH (06:02)
[2019-08-08] MEDS: Cefepime 2 GM in Dextrose(*) 2 GM/50 ML BAG IV SCH (06:02)
[2019-08-08 06:07] LABS: ABS Eosinophils 0.1 10^3/ul (0-0.6); ABS Monocytes 0.4 10^3/ul (0-0.8); ABS Neutrophils 6.2 10^3/ul (1.5-7.7); Eosinophil % 1.6 %; Hematocrit 29 % (35-47); Hemoglobin 9.7 g/dL (12.0-16.0); Lymphocyte % 12.7 %; Mean Corpuscular HGB Conc 34 g/dL (31-36); Mean Corpuscular Hemoglobin 27 pg (27-31); Mean Corpuscular Volume 81 fL (80-97); Platelet Count 242 10^3/uL (150-450); Red Blood Count 3.58 10^6 /uL (3.70-4.87); Red Cell Distribution Width 15 % (10-15); White Blood Count 7.8 10^3/uL (3.5-10.8)
[2019-08-08] MEDS: NS 0.9% 1000 ML** 1,000 ML IV SCH (06:10)
[2019-08-08 06:26] LABS: BUN/Creatinine Ratio 22.6 (8-20); Calcium 8.2 mg/dL (8.6-10.3); EGFR Non-African American 49.6 (>60); Magnesium 1.6 mg/dL (1.9-2.7); Potassium 4.3 mmol/L (3.5-5.0)
[2019-08-08] MEDS: Mometasone/Formoter 200/5 MDI INH SCH ×2 (08:06→20:59)
[2019-08-08] MEDS: SPIRIVA Respimat* (tiotropium) 2.5 mcg/inh Inhaler INH SCH (08:06)
[2019-08-08] MEDS: metroNIDAZOLE IV 500 MG/100ML* 500 MG/100 ML BAG IVPB SCH (08:07)
[2019-08-08] MEDS ORDERED: ceFAZolin 2 GM PREMIX in ORs 2 GM/50 ML BAG IVPB SCH (09:00)
[2019-08-08] MEDS: ceFAZolin* 2 GM in NS 100 MLS Q8H (Pharmacy Admix) IVPB SCH ×2 (10:05→16:44)
[2019-08-08 12:11] LABS: Urine Appearance Cloudy; Urine Bilirubin Negative (Negative); Urine Blood Negative (Negative); Urine Color Yellow; Urine Glucose 3+(>=500 mg/dL) (Negative); Urine Ketones Negative (Negative); Urine Nitrite Negative (Negative); Urine Protein 3+(>=500 mg/dL) (Negative); Urine Specific Gravity 1.018 (1.010-1.030); Urine Urobilinogen Negative (Negative)
[2019-08-08 12:14] LABS: Urine Bacteria Absent (Absent); Urine Red Blood Cell Trace(0-2/hpf) (Absent); Urine Squamous Epithelial Cell Present (Absent); Urine White Blood Cell 2+(11-20/hpf) (Absent)
[2019-08-08] MEDS ORDERED: Magnesium Sulfate 2 GM IV* 2 GM/50 ML BAG IVPB ONE (13:09)
--- NOTE | 2019-08-08 14:06 | PN ---
Progress Note - Progress Note Date of Service: 08/08/19 SOAP: Subjective: []Pt seen at bedside. She is afebrile, denies feeling of fever or chills. L toe is mildly painful, no change from yesterday, Objective: []Gen: Appears well, NAD LLE: Left great toe edematous, plantar surface with 1cm ulceration no discharge , no foul odor. No erythema. Lacks sensation distally. Cap refill less than two seconds distally, DP2+. Assessment: []L great toe infection Plan: []Heel WB Dr Elizabeth reviewed MRI, rec wound care and IV abx for now. No surgery planned acutely. Will follow in house, FU Ortho office next week ID and wound care consulted. Vital Signs Temp 97.4 F 08/08/19 11:15 Pulse 56 08/08/19 11:15 Resp 18 08/08/19 11:15 BP 137/65 08/08/19 11:15 Pulse Ox 98 08/08/19 11:15 Intake & Output 08/07/19 08/08/19 08/08/19 18:59 06:59 18:59 Intake Total 2100 1756 Balance 2100 1756 Weight 174 lb 170 lb Intake: IV Fluids 2100 865 NS (0.9%) 865 IVPB 171 NS (0.9%) 171 Oral 720 Other: Estimated Void Medium # Bowel Movements 0 # Voids 1 Laboratory Last Values WBC 7.8 10^3/uL (3.5-10.8) 08/08/19 05:42 RBC 3.58 10^6 /uL (3.70-4.87) L 08/08/19 05:42 Hgb 9.7 g/dL (12.0-16.0) L 08/08/19 05:42 Hct 29 % (35-47) L 08/08/19 05:42 MCV 81 fL (80-97) 08/08/19 05:42 MCH 27 pg (27-31) 08/08/19 05:42 MCHC 34 g/dL (31-36) 08/08/19 05:42 RDW 15 % (10-15) 08/08/19 05:42 Plt Count 242 10^3/uL (150-450) 08/08/19 05:42 MPV 7.0 fL (7.4-10.4) L 08/08/19 05:42 Neut % (Auto) 80.6 % 08/08/19 05:42 Lymph % (Auto) 12.7 % 08/08/19 05:42 [place] % (Auto) 4.9 % 08/08/19 05:42 Eos % (Auto) 1.6 % 08/08/19 05:42 Baso % (Auto) 0.2 % 08/08/19 05:42 Absolute Neuts (auto) 6.2 10^3/ul (1.5-7.7) 08/08/19 05:42 Absolute Lymphs (auto) 1.0 10^3/ul (1.0-4.8) 08/08/19 05:42 Absolute Monos (auto) 0.4 10^3/ul (0-0.8) 08/08/19 05:42 Absolute Eos (auto) 0.1 10^3/ul (0-0.6) 08/08/19 05:42 Absolute Basos (auto) 0.0 10^3/ul (0-0.2) 08/08/19 05:42 Absolute Nucleated RBC 0.0 10^3/ul 08/08/19 05:42 Nucleated RBC % 0.0 08/08/19 05:42 ESR 66 mm/Hr (0-29) H 08/07/19 14:54 INR (Anticoag Therapy) 0.89 (0.82-1.09) 08/07/19 14:54 APTT 30.3 seconds (26.0-38.0) 08/07/19 14:54 Fibrinogen 541.6 mg/dL (110.8-404.3) H 08/07/19 14:54 Sodium 139 mmol/L (135-145) 08/08/19 05:42 Potassium 4.3 mmol/L (3.5-5.0) 08/08/19 05:42 Chloride 108 mmol/L (101-111) 08/08/19 05:42 Carbon Dioxide 25 mmol/L (22-32) 08/08/19 05:42 Anion Gap 6 mmol/L (2-11) 08/08/19 05:42 BUN 26 mg/dL (6-24) H 08/08/19 05:42 Creatinine 1.15 mg/dL (0.51-0.95) H 08/08/19 05:42 Est GFR ( Amer) 60.0 (>60) 08/08/19 05:42 Est GFR (Non-Af Amer) 49.6 (>60) 08/08/19 05:42 BUN/Creatinine Ratio 22.6 (8-20) H 08/08/19 05:42 Glucose 147 mg/dL (70-100) H 08/08/19 05:42 POC Glucose (mg/dL) 144 mg/dL (70-100) H 08/08/19 10:08 Glucose Meter Confirm 473 mg/dL (70-100) H 08/07/19 21:06 Hemoglobin A1c 13.1 % (4.0-5.6) H 08/08/19 05:42 Lactic Acid 0.7 mmol/L (0.5-2.0) 08/07/19 17:39 Calcium 8.2 mg/dL (8.6-10.3) L 08/08/19 05:42 Magnesium 1.6 mg/dL (1.9-2.7) L 08/08/19 05:42 Total Bilirubin 0.70 mg/dL (0.2-1.0) 08/07/19 14:54 AST 11 U/L (13-39) L 08/07/19 14:54 ALT 10 U/L (7-52) 08/07/19 14:54 Alkaline Phosphatase 114 U/L (34-104) H 08/07/19 14:54 Troponin I 0.00 ng/mL (<0.04) 08/07/19 14:54 C-Reactive Protein 6.12 mg/L (<8.01) 08/07/19 14:54 Total Protein 6.7 g/dL (6.4-8.9) 08/07/19 14:54 Albumin 3.3 g/dL (3.2-5.2) 08/07/19 14:54 Globulin 3.4 g/dL (2-4) 08/07/19 14:54 Albumin/Globulin Ratio 1.0 (1-3) 08/07/19 14:54 Urine Color Yellow 08/08/19 11:07 Urine Appearance Cloudy 08/08/19 11:07 Urine pH 5.0 (5-9) 08/08/19 11:07 Ur Specific Collins 1.018 (1.010-1.030) 08/08/19 11:07 Urine Protein 3+(>=500 mg/dl) (Negative) A 08/08/19 11:07 Urine Ketones Negative (Negative) 08/08/19 11:07 Urine Blood Negative (Negative) 08/08/19 11:07 Urine Nitrate Negative (Negative) 08/08/19 11:07 Urine Bilirubin Negative (Negative) 08/08/19 11:07 Urine Urobilinogen Negative (Negative) 08/08/19 11:07 Ur Leukocyte Esterase Trace (Negative) A 08/08/19 11:07 Urine WBC (Auto) 2+(11-20/hpf) (Absent) A 08/08/19 11:07 Urine RBC (Auto) Trace(0-2/hpf) (Absent) 08/08/19 11:07 Ur Squamous Epith Cells Present (Absent) A 08/08/19 11:07 Urine Bacteria Absent (Absent) 08/08/19 11:07 Hyaline Casts Present (Absent) A 08/08/19 11:07 Urine Glucose 3+(>=500 mg/dl) (Negative) A 08/08/19 11:07
--- NOTE | 2019-08-08 14:41 | CONS ---
DATE OF CONSULTATION: 08/08/2019. DATE OF ADMISSION: 08/07/2019. PRIMARY CARE PHYSICIAN: Gustavo Maldonado NP. PROVIDER REQUESTING CONSULTATION: DAREN Hyman. CONSULTING SERVICE: Infectious Disease. PROVIDER: Fabiana Marks NP. ATTENDING PHYSICIAN: Dr. Yohan Shaw * (dictated by Fabiana Marks NP). REASON FOR CONSULTATION: Left first toe infection. IMPRESSION: 1. Left first toe infection. The patient has had a previously chronic ulcer in the plantar aspect of the first toe. She underwent removal of hardware in April with Dr. Elizabeth. At that time, she also had normal JESSENIA's at the end of April. She continued to have a chronic wound and edema to the left first toe. She has previously grown staph aureus. MRI with findings of cellulitis and possible early osteomyelitis. Wound culture during this admission with PCR positive for MSSA, 4+ neutrophils, 2+ gram positive cocci, 2+ gram positive bacilli. 2. Diabetes mellitus type 2. Uncontrolled with associated peripheral neuropathy. 3. Chronic kidney disease. PLAN/RECOMMENDATIONS: Recommend continuing Ancef at this time. Further recommendations will be determined after discussing the case with Orthopedic Surgery. HISTORY OF PRESENT ILLNESS: Ms. Mcgregor is a 54-year-old female with a past medical history significant for diabetes mellitus type 2, hypertension, diabetic peripheral neuropathy, COPD, osteoarthritis, anxiety, depression, chronic kidney disease, drug- induced seizure, hyperlipidemia, and renal calculi who has been having ongoing issues with her left first toe. She initially developed a plantar ulcer at the left great toe and had been doing Betadine dressings and the ulcer got worse. In March, she was seen by Infectious Disease and it was felt that an I and D with removal of the hardware with deep biopsies, including the bone would be the best option. On April 25 , she underwent removal of previously placed left first toe hardware. She had been discharged from the hospital on a course of antibiotics and was unfortunately lost to follow-up to the ID office and had not returned for follow -ups. She did undergo JESSENIA's in April showing normal JESSENIA's. She has continued to follow with Orthopedics, and continued to have worsening of the left first toe ulcer despite antibiotics and wound care. She states that she has recently been diagnosed with a kidney infection and had completed a course of antibiotics , she believes was Bactrim. She developed increase in the pain in her left foot and also developed pain in her right foot. She had some chills over several days that were intermittent. She also had noticed that her blood sugars were getting higher with glucoses in the 400s to 600s with a last hemoglobin A1c of 14. She was seen by Dr. Elizabeth in the clinic yesterday who referred her to the emergency room for evaluation. While in the emergency room she was found to have a glucose of 677. Labs with no leukocytosis, elevated ESR at 66, and normal CRP at 6.12. She was referred to the Hospitalist Service for admission. During her hospitalization, she has undergone an MRI of the left foot showing a first digit ulceration with associated cellulitis and possible early findings of osteomyelitis involving the first phalanges with mid left foot primary osteoarthritis. She had a culture taken from the left first toe ulcer that is PCR positive for staph aureus with 3+ neutrophils, 1+ gram positive cocci, and 1 + gram positive bacilli. Final culture is pending. She has been on Cefepime. PAST MEDICAL HISTORY: 1. Diabetes mellitus type 2. 2. Hypertension. 3. Diabetic neuropathy. 4. COPD. 5. Osteoarthritis. 6. Anxiety. 7. Depression. 8. Chronic kidney disease. 9. Drug-induced seizures. 10. Hyperlipidemia. 11. Renal calculi. PAST SURGICAL HISTORY: 1. Status post left first toe pinning. 2. Status post removal of hardware from the left first toe on 04/25/2019. 3. Status post right inguinal hernia repair. MEDICATIONS: Home medications: 1. Cipro 250 mg by mouth twice daily. 2. Lispro insulin sliding scale subcutaneous as directed via insulin pump. Hospital medications: 1. Acetaminophen 650 mg by mouth every 6 hours as needed for pain. 2. DuoNeb one nebulizer inhalation every 6 hours as needed for shortness of breath or wheeze. 3. Cefepime 1 gm IV every 12 hours, now discontinued and changed to Cefazolin. 4. Cefazolin 2 gm IV q.8 hours. 5. Lovenox 40 mg subcutaneous daily. 6. Lantus 40 units subcutaneous every 12 hours. 7. Humalog insulin sliding scale subcutaneous every 4 hours. 8. Humalog insulin 10 units subcutaneous with meals. 9. Dulera 200/5 two puffs inhalation twice daily. 10. Zofran 4 mg IV every 6 hours as needed for nausea. 11. Sodium Chloride 125 ml intravenously an hour. 12. Spiriva Respimat 2.5 mg two puffs inhalation daily. ALLERGIES: MICONAZOLE CAUSED BLISTERING, LATEX, ASPIRIN, FAMILY HISTORY: She does not know her family history as she is adopted. SOCIAL HISTORY: Denies tobacco use. She is a former smoker quitting over six months ago. She occasionally uses marijuana. REVIEW OF SYSTEMS: I performed a ten point review of systems. All the pertinent positives and negatives are mentioned in the history of present illness. The remaining review of systems are negative. She denies any recent travel other than a recent trip to [place]. PHYSICAL EXAM: Vital Signs: Temperature 97.5, heart rate 58, respiratory rate 18, O2 sat 98 percent on room air, blood pressure 147/69. General: She is alert, appears to be in no acute distress. HEENT: Normocephalic, atraumatic. Pupils are equal and reactive to light. Extraocular movements are intact. There is no subconjunctival hemorrhage. Neck: Supple. No lymphadenopathy. Neurological: Alert and oriented times four. Cranial nerves II through XII are grossly intact. She does have decreased sensation to bilateral lower extremities. Cardiovascular: Regular rate and rhythm. S1, S2 present. No murmurs, rubs, or gallops heard. Respiratory: The lungs are clear to auscultation bilaterally. No accessory muscle use. Abdomen: Bowel sounds present. Abdomen is soft, nontender, nondistended. Extremities: No lower extremity edema. DP and PT pulses are 2+ and symmetrical. Left first toe edema. Musculoskeletal: No clubbing or cyanosis noted. The patient exhibits good strength in all extremities. Psychological: Calm and cooperative. Skin: No rashes seen. She is noted to have what appears to be a diabetic ulcer that is approximately 1 cm x 1.2 cm and 0.7 cm deep with a small amount of red granulation tissue in the wound base. The surrounding skin appears to be callused. There is serous drainage from the wound. There is no erythema. DIAGNOSTIC STUDIES/LAB DATA: Sodium 139, potassium 4.3, chloride 108, CO2 25, BUN 26, creatinine 1.15, glucose 147; white blood cell count 7.8, hemoglobin 9.7 , hematocrit 29, platelet count 242, ESR 66, CRP 6.12. Please see impression and recommendations outlined above. Recommendations have been discussed with DAREN Nascimento. Thank you for asking us to see Ms. Mcgregor in consultation. The case has been reviewed with my attending, Dr. Yohan Shaw who agrees with the plan of care. Reviewed by FABIANA MARKS, KAY-C 08/12/19 0940 [id number]/[facility] #: [id number] MTDD
[2019-08-08] MEDS ORDERED: Dextrose 50% VIAL 50 ml ONE (16:19)
[2019-08-08] MEDS ORDERED: Dextrose 50% VIAL 50 ml IV PUSH PRN (16:56)
[2019-08-08] MEDS ORDERED: Dextrose 50% VIAL 50 ml IV ONE (16:57)
--- NOTE | 2019-08-08 17:05 | PN ---
Subjective Date of Service: 08/08/19 Interval History: Patient seen and examined this morning. Was feeling well, somewhat tired and was pending exam by ortho and ID. Discussed staph in micro report, patient understands that Ancef will be given and is in agreement. Discussed that she will likely need 4-6 weeks of IV atbx. 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 She denies any fever or chills, no SOB, no chest pain, no further complaints. This evening, patient had low blood sugar and required IV dextrose. Objective Active Medications: Acetaminophen (Tylenol Tab*) 650 mg PO Q6H PRN PRN Reason: MILD PAIN or TEMP > 100.4 Albuterol/Ipratropium (Duoneb (Albuterol 2.5 Mg/Ipratropium 0.5 Mg)) 1 neb INH Q6H PRN PRN Reason: SOB/WHEEZING Dextrose (D50w Syringe 50 Ml*) 25 gm IV PUSH .FOR FS < 60 - SS PRN PRN Reason: FS < 60 Dextrose (Dextrose 50% Vial 50 Ml*) 25 ml IV ONCE ONE Stop: 08/08/19 16:58 Enoxaparin Sodium (Lovenox(*)) 40 mg SUBCUT Q24H [facility] Last Admin: 08/07/19 21:51 Dose: 40 mg Cefazolin Sodium 2 gm/ Sodium (Chloride) 100 mls @ 200 mls/hr IVPB Q8H [facility] Last Admin: 08/08/19 16:44 Dose: 200 mls/hr Insulin Glargine (Lantus(*)) 40 units SUBCUT Q24H [facility] Insulin Human Lispro (Humalog*) 0 units SUBCUT ACHS [facility]; Protocol Mometasone Furoate/Formoterol Fumar (Dulera 200/5 Mdi*) 2 puff INH BID [facility] Last Admin: 08/08/19 08:06 Dose: 2 puff Ondansetron HCl (Zofran Inj*) 4 mg IV Q6H PRN PRN Reason: NAUSEA Tiotropium [place] (Spiriva Respimat 2.5 Mcg) 2 puff INH DAILY [facility] Last Admin: 08/08/19 08:06 Dose: 2 puff Vital Signs - 8 hr 08/08/19 08/08/19 08/08/19 11:15 14:50 16:20 Temperature 97.4 F 98 F 98.2 F Pulse Rate 56 60 76 Respiratory 18 19 16 Rate Blood Pressure 137/65 146/58 172/68 (mmHg) O2 Sat by Pulse 98 93 97 Oximetry 08/08/19 16:45 Temperature 98.1 F Pulse Rate 64 Respiratory 17 Rate Blood Pressure 147/72 (mmHg) O2 Sat by Pulse 97 Oximetry Oxygen Devices in Use Now: None Appearance: alert, NAD Eyes: PERRLA Ears/Nose/Mouth/Throat: Mucous Membranes Moist Neck: NL Appearance and Movements; NL JVP Respiratory: Symmetrical Chest Expansion and Respiratory Effort, Clear to Auscultation Cardiovascular: NL Sounds; No Murmurs; No JVD, RRR Abdominal: NL Sounds; No Tenderness; No Distention Extremities: No Edema Skin: No Rash or Ulcers Neurological: Alert and Oriented x 3 Nutrition: Taking PO's Result Diagrams: 08/08/19 05:42 08/08/19 05:42 Additional Lab and Data: Lab Results 08/07/19 08/07/19 Range/Units 14:54 14:54 WBC 8.1 (3.5-10.8) 10^3/uL RBC 3.98 (3.70-4.87) 10^6 /uL Hgb 10.6 L (12.0-16.0) g/dL Hct 32 L (35-47) % MCV 81 (80-97) fL MCH 27 (27-31) pg MCHC 33 (31-36) g/dL RDW 15 (10-15) % Plt Count 274 (150-450) 10^3/uL MPV 7.2 L (7.4-10.4) fL Neut % (Auto) 77.5 % Lymph % (Auto) 13.9 % Harlan % (Auto) 5.8 % Eos % (Auto) 2.1 % Baso % (Auto) 0.7 % Absolute Neuts (auto) 6.3 (1.5-7.7) 10^3/ul Absolute Lymphs (auto) 1.1 (1.0-4.8) 10^3/ul Absolute Monos (auto) 0.5 (0-0.8) 10^3/ul Absolute Eos (auto) 0.2 (0-0.6) 10^3/ul Absolute Basos (auto) 0.1 (0-0.2) 10^3/ul Absolute Nucleated RBC 0.0 10^3/ul Nucleated RBC % 0.0 Sodium Pending Potassium Pending Chloride Pending Carbon Dioxide Pending Anion Gap Pending BUN Pending Creatinine Pending Est GFR ( Amer) Pending Est GFR (Non-Af Amer) Pending BUN/Creatinine Ratio Pending Glucose Pending Calcium Pending Total Bilirubin Pending AST Pending ALT Pending Alkaline Phosphatase Pending Troponin I 0.00 (<0.04) ng/mL Total Protein Pending Albumin Pending Globulin Pending Albumin/Globulin Ratio Pending Microbiology and Other Data: Microbiology 08/07/19 14:44 Aerobic Blood Culture - Preliminary Blood Venous No Growth Day 1 Anaerobic Blood Culture - Preliminary No Growth Day 1 08/07/19 14:54 Aerobic Blood Culture - Preliminary Blood Venous No Growth Day 1 Anaerobic Blood Culture - Preliminary No Growth Day 1 08/07/19 16:41 Skin and Soft Tissue MRSA/MSSA (PCR - Final Foot Left Mrsa Negative S.aureus Positive Gram Stain - Final Wound Culture - Preliminary Staphylococcus Aureus Diagnostic Imaging: Patient Name: RASHIDA GILES Medical Record#: [id number] Ordering Physician: Kell MERCEDES Acct.#: [id number] : 1965 Age: 54 Sex: F Location: [address] [place] [address] - MEDICAL Exam Date: 08/07/191532 ADM Status: ADM IN Order Information: MRI LOWER EXTREMITY LEFT W/O Accession Number: [id number] CPT: 01183 PROCEDURE INFORMATION: Exam: MR Left Lower Extremity Without Contrast; Forefoot Exam date and time: 08/07/2019 8:19 PM Clinical history: 54 years old, female; Condition or disease; Other: Non healing ulcer; Prior surgery; Surgery date: 6+ months; Surgery type: Pins removed from great toe; Patient HX: PT has a left foot ulcer for the last 6 months after surgery. PT is a diabetic; Additional info: Left great toe infection TECHNIQUE: Imaging protocol: MR of the Left foot without intravenous contrast. Exam focused on the forefoot. COMPARISON: DX PENELOPE L FOOT LEFT 3+ VWS 08/07/2019 3:37 PM FINDINGS: LIGAMENTS: Medial collateral: Normal. No evidence of tear. Lateral collateral: Normal. No evidence of tear. TENDONS: Flexors: Normal as visualized. Extensors: Normal as visualized. Bones/joints: Subtle marrow edema involving the distal first phalanx and the distal aspect of the first proximal phalanx with no associated T1 hypointensity filtration. Mild marrow edema within the bit to get her bone with subtle hypointensity on T1. No cortical erosion. Remaining marrow signal intensity is normal. Patient post fusion of the first MTP joint. Cartilage loss along the talonavicular, ventricular cuneiform, and the first cuneiform metatarsal joints with small osteophytes. Remaining joint cartilage is normal. Cartilage: See Bones/joints Finding. Soft tissues: Cutaneous ulcer along the inferior aspect of the first digit. Associated subcutaneous edema extends throughout the first digit with additional involvement of the second and third digit bases and the medial and inferior forefoot. No associated encapsulated fluid collections. Muscles: Normal. Fluid: See Soft Tissues Finding. IMPRESSION: 1. First digit ulceration and associated cellulitis with possible early findings of osteomyelitis involving the first phalanges. 2. Mild left foot primary osteoarthritis. 3. Expected findings post first MTP joint fusion. To contact [facility] with a general question: Operations Center - [phone] For direct physician to physician contact: Physician Hotline - [phone] [facility] ([facility] Facility ID #[id number]) This report is only to be considered final once signed by the Provider(s) as displayed in the "<Electronically Signed by >" field (s). Absence of a signature indicates the report is in a draft status and still needs to be finalized. In the event this document was created by someone other than the signing Provider, the individual initiating the document will be listed in the "Entered by:" or "Dictated by:" garduno. 1 of 2 Assess/Plan/Problems-Billing Assessment: This is an 54 year old female with history of IDDM, uncontrolled with diabetic neuropathy that presents with chronic non healing left great toe wound. - Patient Problems (1) Non-healing open wound of toe Code(s): S91.109A - UNSP OPEN WOUND OF UNSP TOE(S) W/O DAMAGE TO NAIL, INIT SNOMED Code(s): 545958221 Comment: - Noted as an oupatient in April of this year with no follow up - Ortho and ID following - + for staph, changed to Ancef 2gm Q8h - No plan for surgery as yet per ortho, appears to be early osteo (2) Diabetes mellitus, insulin dependent (IDDM), uncontrolled Code(s): E10.65 - TYPE 1 DIABETES MELLITUS WITH HYPERGLYCEMIA SNOMED Code(s): 76905282 Comment: - BG >600 at admission, no anion gap - Responded to fluids and insulin but had BG 48 this evening and symptomatic, required IV dextrose - Will decrease lantus for 40u BID to 40u daily and stay with sliding scale ACHS - A1C13.7 - CC diet - Sugars remain labile in presence of uncontrolled infection (3) COPD (chronic obstructive pulmonary disease) Code(s): J44.9 - CHRONIC OBSTRUCTIVE PULMONARY DISEASE, UNSPECIFIED SNOMED Code(s): 25318290 Comment: - No evidence of exacerbation - Continue dulera (4) Peripheral neuropathy Code(s): G62.9 - POLYNEUROPATHY, UNSPECIFIED SNOMED Code(s): 901671055 Comment: - Not currently on medications (5) DVT prophylaxis Code(s): YEX7466 - SNOMED Code(s): 004804234 Comment: - SQ heparin (6) Full code status Code(s): Z78.9 - OTHER SPECIFIED HEALTH STATUS SNOMED Code(s): 946750162 Comment: Status and Disposition: Inpatient for IV atbx and wound care.
--- NOTE | 2019-08-08 17:29 | CONSULT ---
Subjective Date of Service: 08/08/19 Interval History: Ms. Mcgregor is a 54 yo female with PMH significant for DM2, HTN, diabetic neuropathy, COPD, osteoarthritis, anxiety, depression, chronic pain, CKD, HLD, drug induced seizures, renal calculi; who presented to the hospital with complaints of a worsening left 1st toe ulcer. She presented to the hospital with a known ulcer to the left 1st toe, this has been present since at least February 2019. She has been following with Orthopedic surgery regarding this. She has been using a bandaid at home for a dressing. She has noticed increased drainage in the wound over the past week. Patient seen and examined at bedside. Family History: Unchanged from Admission Social History: Unchanged from Admission Past Medical History: Unchanged from Admission Review of Systems - Measurements Intake and Output: Intake and Output Last 24 Hours 08/06/19 08/07/19 08/08/19 08/09/19 06:59 06:59 06:59 06:59 Intake Total 3856 1422 Balance 3856 1422 Weight 170 lb Intake: IV Fluids 2965 822 NS (0.9%) 865 822 IVPB 171 200 NS (0.9%) 171 200 Oral 720 400 Other: Estimated Void Medium # Bowel Movements 0 # Voids 1 - Review of Systems Constitutional Symptoms: Negative: Fever, Other - chills Dermatology: Positive: Other - Left 1st toe Endocrinology: Positive: Diabetes Mellitus Objective Active Medications: Acetaminophen (Tylenol Tab*) 650 mg PO Q6H PRN Reason: MILD PAIN or TEMP > 100.4 Albuterol/Ipratropium (Duoneb (Albuterol 2.5 Mg/Ipratropium 0.5 Mg)) 1 neb INH Q6H PRN Reason: SOB/WHEEZING Dextrose (Dextrose 50% Vial 50 Ml*) 50 ml IV PUSH .FOR FS < 60 - SS PRN Reason : FS < 60 Enoxaparin Sodium (Lovenox(*)) 40 mg SUBCUT Q24H [place] Cefazolin Sodium 2 gm/ Sodium (Chloride) 100 mls @ 200 mls/hr IVPB Q8H [facility] Insulin Glargine (Lantus(*)) 40 units SUBCUT Q24H [facility] Insulin Human Lispro (Humalog*) 0 units SUBCUT ACHS [facility]; Protocol Mometasone Furoate/Formoterol Fumar (Dulera 200/5 Mdi*) 2 puff INH BID [place] Ondansetron HCl (Zofran Inj*) 4 mg IV Q6H PRN Reason: NAUSEA Tiotropium [place] (Spiriva Respimat 2.5 Mcg) 2 puff INH DAILY [facility] Vital Signs 08/08/19 16:45 Temperature 98.1 F Pulse Rate 64 Respiratory 17 Rate Blood Pressure 147/72 (mmHg) O2 Sat by Pulse 97 Oximetry Oxygen Devices in Use Now: None Appearance: NAD, sitting up on the side of the bed Ears/Nose/Mouth/Throat: Mucous Membranes Moist Respiratory: Symmetrical Chest Expansion and Respiratory Effort Extremities: No Edema, - - Left DP pulse 2+ Skin: - - See skin note below Neurological: Alert and Oriented x 3 Nutrition: Taking PO's Result Diagrams: 08/09/19 05:55 08/09/19 05:55 Microbiology and Other Data: Microbiology 08/07/19 14:44 Aerobic Blood Culture - Preliminary Blood Venous No Growth Day 1 Anaerobic Blood Culture - Preliminary No Growth Day 1 08/07/19 14:54 Aerobic Blood Culture - Preliminary Blood Venous No Growth Day 1 Anaerobic Blood Culture - Preliminary No Growth Day 1 08/07/19 16:41 Skin and Soft Tissue MRSA/MSSA (PCR - Final Foot Left Mrsa Negative S.aureus Positive Gram Stain - Final Wound Culture - Preliminary Staphylococcus Aureus Diagnostic Imagin. Exam Date: 08/07/19 1533 - MRI LOWER EXTREMITY LEFT W/O IMPRESSION: 1. First digit ulceration and associated cellulitis with possible early findings of osteomyelitis involving the first phalanges. 2. Mild left foot primary osteoarthritis. 3. Expected findings post first MTP joint fusion. 2. Exam Date: 05/18/19 - VL ANK/BRACHIAL INDICES IMPRESSION: Normal ankle-brachial indices. Skin Deviation Note - Skin Deviation Findings Left 1st toe - There an ulcer to the plantar aspect of the toe. This measures 1 cm x 1.2 m x 0.7 cm. The wound base with new colored slough. The wound base was clean and revealed a small amount of red granulation tissue and adherent new slough. There is drainage from the wound, appears to be serosang on sock. The periwound is a calloused. The 1st toe is edematous. There is no erythema. Wound Problem/Plan Assessment: Ms. Mcgregor is a 54 yo female with PMH significant for DM2, HTN, diabetic neuropathy, COPD, osteoarthritis, anxiety, depression, chronic pain, CKD, HLD, drug induced seizures, renal calculi; who presented to the hospital with complaints of a worsening left 1st toe ulcer. She presented to the hospital with a known ulcer to the left 1st toe. 1. Chronic left 1st toe ulcer, located on the plantar aspect. Suspect this is multifactoral; secondary to pressure and a diabetic ulcer. MRI with findings suspicious for acute osteomyelitis. Normal ABIs in April 2019. Suspect there is osteomyelitis in this area, the patient will be on an extended course of IV ABX. Recommend washing the area with soap and water. Apply a piece of calcium alginate the size of the wound and followed by rolled gauze or a small stockinette; change every other day. 2. DM2 with peripheral neuropathy. HgA1C was 13.17 this admission. Maintain good glycemic control to allow wound healing. 3. Diet. Consistent Carbohydrate diet. 4. Code Status. Full Code Status. 5. Disposition. Inpatient, disposition per primary medicine team. TIME SPENT: Time for this wound consultation was 20 minutes and 10 minutes was spent at bedside with patient discussing past medical history; assessing, measuring, and photographing the wound. Is Patient a Wound Clinic Patient: No Attending: Aidee Flores
[2019-08-08] MEDS: Enoxaparin(*) 40 MG/0.4 ML SYR SUBCUT SCH (22:17)
[2019-08-09] MEDS: ceFAZolin* 2 GM in NS 100 MLS Q8H (Pharmacy Admix) IVPB SCH ×3 (00:44→16:29)
[2019-08-09 06:12] LABS: ABS Eosinophils 0.2 10^3/ul (0-0.6); ABS Lymphocytes 1.5 10^3/ul (1.0-4.8); ABS Monocytes 0.4 10^3/ul (0-0.8); ABS Neutrophils 2.6 10^3/ul (1.5-7.7); Eosinophil % 4.8 %; Hematocrit 29 % (35-47); Hemoglobin 9.5 g/dL (12.0-16.0); Lymphocyte % 31.2 %; Mean Corpuscular HGB Conc 33 g/dL (31-36); Mean Corpuscular Hemoglobin 27 pg (27-31); Mean Corpuscular Volume 82 fL (80-97); Nucleated Red Blood Cells % 0.2; Platelet Count 232 10^3/uL (150-450); Red Blood Count 3.54 10^6 /uL (3.70-4.87); Red Cell Distribution Width 15 % (10-15); White Blood Count 4.8 10^3/uL (3.5-10.8)
[2019-08-09 06:45] LABS: Albumin 2.7 g/dL (3.2-5.2); Albumin/Globulin Ratio 0.9 (1-3); BUN/Creatinine Ratio 22.7 (8-20); Calcium 8.4 mg/dL (8.6-10.3); EGFR Non-African American 60.3 (>60); Globulin 3.1 g/dL (2-4); Magnesium 2.1 mg/dL (1.9-2.7); Potassium 4.4 mmol/L (3.5-5.0); Total Bilirubin 0.3 mg/dL (0.2-1.0); Total Protein 5.8 g/dL (6.4-8.9)
[2019-08-09] MEDS: Mometasone/Formoter 200/5 MDI INH SCH (07:21)
[2019-08-09] MEDS: SPIRIVA Respimat* (tiotropium) 2.5 mcg/inh Inhaler INH SCH (07:22)
[2019-08-09] MEDS: Insulin LISPRO* 1 UNITS UNIT SUBCUT SCH ×4 (07:34→21:02)
[2019-08-09] MEDS: Acetaminophen TAB* 325 MG PO PRN ×2 (08:09→21:06)
[2019-08-09] MEDS: Insulin GLARGINE(*) 1 UNITS UNIT SUBCUT SCH (09:18)
[2019-08-09] MEDS ORDERED: hydrALAZINE IV* 20 MG/ML VIAL IV SLOW PU PRN (12:40)
--- NOTE | 2019-08-09 13:36 | PN ---
Subjective Date of Service: 08/09/19 Interval History: Patient is feeling well. She feels a little frustrated about having elevated blood pressure. She tells me she has a lot of support in her life. She mentions she used to do "nearly every kind of drug" but tells me she never injected. She feels her support, including , daughter, and grandchildren, encourage her to remain sober. Wants to go home with PICC if possible. Denies fever/chills , pain in lower extremity, abd pain, chest pain. Endorses some dyspnea on exertion which resolves after <30 seconds of resting, which is her baseline. Family History: Unchanged from Admission Social History: Unchanged from Admission Past Medical History: Unchanged from Admission Objective Active Medications: Acetaminophen (Tylenol Tab*) 650 mg PO Q6H PRN PRN Reason: MILD PAIN or TEMP > 100.4 Last Admin: 08/09/19 08:09 Dose: 650 mg Albuterol/Ipratropium (Duoneb (Albuterol 2.5 Mg/Ipratropium 0.5 Mg)) 1 neb INH Q6H PRN PRN Reason: SOB/WHEEZING Dextrose (Dextrose 50% Vial 50 Ml*) 50 ml IV PUSH .FOR FS < 60 - SS PRN PRN Reason: FS < 60 Enoxaparin Sodium (Lovenox(*)) 40 mg SUBCUT Q24H [facility] Last Admin: 08/08/19 22:17 Dose: 40 mg Hydralazine HCl (Apresoline Iv*) 5 mg IV SLOW PU Q6H PRN PRN Reason: SYSTOLIC BP GREATER THAN: Last Admin: 08/09/19 13:07 Dose: 5 mg Cefazolin Sodium 2 gm/ Sodium (Chloride) 100 mls @ 200 mls/hr IVPB Q8H [facility] Last Admin: 08/09/19 09:17 Dose: 200 mls/hr Insulin Glargine (Lantus(*)) 40 units SUBCUT Q24H [facility] Last Admin: 08/09/19 09:18 Dose: 40 units Insulin Human Lispro (Humalog*) 0 units SUBCUT ACHS [facility]; Protocol Last Admin: 08/09/19 12:14 Dose: 3 units Mometasone Furoate/Formoterol Fumar (Dulera 200/5 Mdi*) 2 puff INH BID [facility] Last Admin: 08/09/19 07:21 Dose: 2 puff Ondansetron HCl (Zofran Inj*) 4 mg IV Q6H PRN PRN Reason: NAUSEA Tiotropium [place] (Spiriva Respimat 2.5 Mcg) 2 puff INH DAILY [facility] Last Admin: 08/09/19 07:22 Dose: 2 puff Vital Signs - 8 hr 08/09/19 08/09/19 08/09/19 07:24 08:04 08:15 Temperature 97.5 F Pulse Rate 68 69 Respiratory 14 16 Rate Blood Pressure 174/78 174/80 (mmHg) O2 Sat by Pulse 98 95 Oximetry 08/09/19 08/09/19 08/09/19 08:46 09:00 12:40 Temperature 97.5 F 97.2 F Pulse Rate 69 64 Respiratory 16 20 16 Rate Blood Pressure 174/78 173/80 (mmHg) O2 Sat by Pulse 95 97 Oximetry Oxygen Devices in Use Now: None Appearance: White female, who appears older than stated age, laying upright in bed, appearing comfortable and in NAD, eating lunch Eyes: No Scleral Icterus, - - PERRL Ears/Nose/Mouth/Throat: Mucous Membranes Moist Neck: NL Appearance and Movements; NL JVP Respiratory: Symmetrical Chest Expansion and Respiratory Effort, Clear to Auscultation Cardiovascular: NL Sounds; No Murmurs; No JVD, RRR Abdominal: - - abd soft, nontender, nondistended Extremities: No Edema, No Clubbing, Cyanosis, - - no erythema or streaking; left foot in wound, observed left great toe wound while orthopedic surgery PA changing bandage; approx 2cm wound appears dry and without surrounding erythema , no purulent drainage Skin: - - skin warm and dry Neurological: Alert and Oriented x 3, NL Muscle Strength and Tone Result Diagrams: 08/09/19 05:55 08/09/19 05:55 Additional Lab and Data: Lab Results 08/07/19 08/07/19 Range/Units 14:54 14:54 WBC 8.1 (3.5-10.8) 10^3/uL RBC 3.98 (3.70-4.87) 10^6 /uL Hgb 10.6 L (12.0-16.0) g/dL Hct 32 L (35-47) % MCV 81 (80-97) fL MCH 27 (27-31) pg MCHC 33 (31-36) g/dL RDW 15 (10-15) % Plt Count 274 (150-450) 10^3/uL MPV 7.2 L (7.4-10.4) fL Neut % (Auto) 77.5 % Lymph % (Auto) 13.9 % [place] % (Auto) 5.8 % Eos % (Auto) 2.1 % Baso % (Auto) 0.7 % Absolute Neuts (auto) 6.3 (1.5-7.7) 10^3/ul Absolute Lymphs (auto) 1.1 (1.0-4.8) 10^3/ul Absolute Monos (auto) 0.5 (0-0.8) 10^3/ul Absolute Eos (auto) 0.2 (0-0.6) 10^3/ul Absolute Basos (auto) 0.1 (0-0.2) 10^3/ul Absolute Nucleated RBC 0.0 10^3/ul Nucleated RBC % 0.0 Sodium Pending Potassium Pending Chloride Pending Carbon Dioxide Pending Anion Gap Pending BUN Pending Creatinine Pending Est GFR ( Amer) Pending Est GFR (Non-Af Amer) Pending BUN/Creatinine Ratio Pending Glucose Pending Calcium Pending Total Bilirubin Pending AST Pending ALT Pending Alkaline Phosphatase Pending Troponin I 0.00 (<0.04) ng/mL Total Protein Pending Albumin Pending Globulin Pending Albumin/Globulin Ratio Pending Microbiology and Other Data: Microbiology 08/07/19 14:44 Aerobic Blood Culture - Preliminary Blood Venous No Growth Day 1 Anaerobic Blood Culture - Preliminary No Growth Day 1 08/07/19 14:54 Aerobic Blood Culture - Preliminary Blood Venous No Growth Day 1 Anaerobic Blood Culture - Preliminary No Growth Day 1 08/07/19 16:41 Skin and Soft Tissue MRSA/MSSA (PCR - Final Foot Left Mrsa Negative S.aureus Positive Gram Stain - Final Wound Culture - Preliminary Staphylococcus Aureus Diagnostic Imagin. Exam Date: 08/07/19 1533 - MRI LOWER EXTREMITY LEFT W/O IMPRESSION: 1. First digit ulceration and associated cellulitis with possible early findings of osteomyelitis involving the first phalanges. 2. Mild left foot primary osteoarthritis. 3. Expected findings post first MTP joint fusion. 2. Exam Date: 05/18/19 - VL ANK/BRACHIAL INDICES IMPRESSION: Normal ankle-brachial indices. Assess/Plan/Problems-Billing Assessment: This is an 54 year old female with history of IDDM, uncontrolled with diabetic neuropathy that presents with chronic non healing left great toe wound. - Patient Problems (1) Non-healing open wound of toe Current Visit: Yes Status: Acute Code(s): S91.109A - UNSP OPEN WOUND OF UNSP TOE(S) W/O DAMAGE TO NAIL, INIT SNOMED Code(s): 346698747 Comment: - Noted as an oupatient in April of this year with no follow up - MRI as above - Ortho and ID following - No plan for surgery per ortho - + for staph, changed to Ancef 2gm Q8h - Will need custodial IV abx. PICC placement pending. Going home with PICC for daily infusions seems reasonable - Surrounding cellulitis is improving (2) Hypertension Current Visit: Yes Status: Acute Code(s): I10 - ESSENTIAL (PRIMARY) HYPERTENSION SNOMED Code(s): 78032931 Comment: - prn hydralazine - Started lisinopril (3) Diabetes mellitus, insulin dependent (IDDM), uncontrolled Current Visit: No Status: Chronic Code(s): E10.65 - TYPE 1 DIABETES MELLITUS WITH HYPERGLYCEMIA SNOMED Code(s): 65692911 Comment: - BG >600 at admission, no anion gap - Responded to fluids and insulin but had symptomatic hypoglycemia earlier in hospital stay, required IV dextrose - continue decreased lantus of 40u daily, continue lispro SS - A1C=13.7 - CC diet - Sugars remain labile in presence of uncontrolled infection - It appears patient follows with endocrinology, will discuss with [facility] diabetic nurse (4) COPD (chronic obstructive pulmonary disease) Current Visit: No Status: Acute Code(s): J44.9 - CHRONIC OBSTRUCTIVE PULMONARY DISEASE, UNSPECIFIED SNOMED Code(s): 89560926 Comment: - No evidence of exacerbation - Continue dulera (5) DVT prophylaxis Current Visit: No Status: Acute Code(s): ATI8502 - SNOMED Code(s): 381594885 Comment: - SQ heparin (6) Full code status Current Visit: No Status: Acute Code(s): Z78.9 - OTHER SPECIFIED HEALTH STATUS SNOMED Code(s): 884731060 Comment: Status and Disposition: Inpatient for IV atbx and wound care.
--- NOTE | 2019-08-09 13:58 | PN ---
Progress Note - Progress Note Date of Service: 08/09/19 SOAP: Subjective: [] Pt seen at bedside. She feels well without fever or chills. No pain of L foot. Objective: []Gen: Appears well, NAD LLE: Left great toe edematous, plantar surface with 1cm ulceration no discharge , no foul odor. No erythema. Lacks sensation distally. Cap refill less than two seconds distally, DP2+. Assessment: []L great toe infection Plan: []Heel WB No surgery planned acutely. Will follow in house, FU Ortho office next week ID and wound care consulted. On ancef. Wound care rec: Recommend washing the area with soap and water. Apply a piece of calcium alginate the size of the wound and followed by rolled gauze or a small stockinette; change every other day. Vital Signs Temp 97.2 F 08/09/19 12:40 Pulse 64 08/09/19 12:40 Resp 16 08/09/19 12:40 BP 173/80 08/09/19 12:40 Pulse Ox 97 08/09/19 12:40 Intake & Output 08/08/19 08/09/19 08/09/19 18:59 06:59 18:59 Intake Total 2262 120 720 Balance 2262 120 720 Intake: IV Fluids 822 20 NS (0.9%) 822 20 IVPB 200 100 NS (0.9%) 200 cefazolin 100 Oral 1240 0 720 Other: # Voids 0 Laboratory Last Values WBC 4.8 10^3/uL (3.5-10.8) 08/09/19 05:55 RBC 3.54 10^6 /uL (3.70-4.87) L 08/09/19 05:55 Hgb 9.5 g/dL (12.0-16.0) L 08/09/19 05:55 Hct 29 % (35-47) L 08/09/19 05:55 MCV 82 fL (80-97) 08/09/19 05:55 MCH 27 pg (27-31) 08/09/19 05:55 MCHC 33 g/dL (31-36) 08/09/19 05:55 RDW 15 % (10-15) 08/09/19 05:55 Plt Count 232 10^3/uL (150-450) 08/09/19 05:55 MPV 7.0 fL (7.4-10.4) L 08/09/19 05:55 Neut % (Auto) 55.4 % 08/09/19 05:55 Lymph % (Auto) 31.2 % 08/09/19 05:55 [place] % (Auto) 8.2 % 08/09/19 05:55 Eos % (Auto) 4.8 % 08/09/19 05:55 Baso % (Auto) 0.4 % 08/09/19 05:55 Absolute Neuts (auto) 2.6 10^3/ul (1.5-7.7) 08/09/19 05:55 Absolute Lymphs (auto) 1.5 10^3/ul (1.0-4.8) 08/09/19 05:55 Absolute Monos (auto) 0.4 10^3/ul (0-0.8) 08/09/19 05:55 Absolute Eos (auto) 0.2 10^3/ul (0-0.6) 08/09/19 05:55 Absolute Basos (auto) 0.0 10^3/ul (0-0.2) 08/09/19 05:55 Absolute Nucleated RBC 0.0 10^3/ul 08/09/19 05:55 Nucleated RBC % 0.2 08/09/19 05:55 ESR 66 mm/Hr (0-29) H 08/07/19 14:54 INR (Anticoag Therapy) 0.89 (0.82-1.09) 08/07/19 14:54 APTT 30.3 seconds (26.0-38.0) 08/07/19 14:54 Fibrinogen 541.6 mg/dL (110.8-404.3) H 08/07/19 14:54 Sodium 140 mmol/L (135-145) 08/09/19 05:55 Potassium 4.4 mmol/L (3.5-5.0) 08/09/19 05:55 Chloride 109 mmol/L (101-111) 08/09/19 05:55 Carbon Dioxide 28 mmol/L (22-32) 08/09/19 05:55 Anion Gap 3 mmol/L (2-11) 08/09/19 05:55 BUN 22 mg/dL (6-24) 08/09/19 05:55 Creatinine 0.97 mg/dL (0.51-0.95) H 08/09/19 05:55 Est GFR ( Amer) 73.0 (>60) 08/09/19 05:55 Est GFR (Non-Af Amer) 60.3 (>60) 08/09/19 05:55 BUN/Creatinine Ratio 22.7 (8-20) H 08/09/19 05:55 Glucose 92 mg/dL (70-100) 08/09/19 05:55 POC Glucose (mg/dL) 194 mg/dL (70-100) H 08/09/19 11:07 Glucose Meter Confirm 473 mg/dL (70-100) H 08/07/19 21:06 Hemoglobin A1c 13.1 % (4.0-5.6) H 08/08/19 05:42 Lactic Acid 0.7 mmol/L (0.5-2.0) 08/07/19 17:39 Calcium 8.4 mg/dL (8.6-10.3) L 08/09/19 05:55 Magnesium 2.1 mg/dL (1.9-2.7) 08/09/19 05:55 Total Bilirubin 0.30 mg/dL (0.2-1.0) 08/09/19 05:55 AST 13 U/L (13-39) 08/09/19 05:55 ALT 7 U/L (7-52) 08/09/19 05:55 Alkaline Phosphatase 84 U/L (34-104) 08/09/19 05:55 Troponin I 0.00 ng/mL (<0.04) 08/07/19 14:54 C-Reactive Protein 6.12 mg/L (<8.01) 08/07/19 14:54 Total Protein 5.8 g/dL (6.4-8.9) L 08/09/19 05:55 Albumin 2.7 g/dL (3.2-5.2) L 08/09/19 05:55 Globulin 3.1 g/dL (2-4) 08/09/19 05:55 Albumin/Globulin Ratio 0.9 (1-3) L 08/09/19 05:55 Urine Color Yellow 08/08/19 11:07 Urine Appearance Cloudy 08/08/19 11:07 Urine pH 5.0 (5-9) 08/08/19 11:07 Ur Specific [place] 1.018 (1.010-1.030) 08/08/19 11:07 Urine Protein 3+(>=500 mg/dl) (Negative) A 08/08/19 11:07 Urine Ketones Negative (Negative) 08/08/19 11:07 Urine Blood Negative (Negative) 08/08/19 11:07 Urine Nitrate Negative (Negative) 08/08/19 11:07 Urine Bilirubin Negative (Negative) 08/08/19 11:07 Urine Urobilinogen Negative (Negative) 08/08/19 11:07 Ur Leukocyte Esterase Trace (Negative) A 08/08/19 11:07 Urine WBC (Auto) 2+(11-20/hpf) (Absent) A 08/08/19 11:07 Urine RBC (Auto) Trace(0-2/hpf) (Absent) 08/08/19 11:07 Ur Squamous Epith Cells Present (Absent) A 08/08/19 11:07 Urine Bacteria Absent (Absent) 08/08/19 11:07 Hyaline Casts Present (Absent) A 08/08/19 11:07 Urine Glucose 3+(>=500 mg/dl) (Negative) A 08/08/19 11:07
[2019-08-09] MEDS ORDERED: Lisinopril TAB* 5 MG PO SCH (18:00)
[2019-08-09] MEDS: Enoxaparin(*) 40 MG/0.4 ML SYR SUBCUT SCH (21:06)
--- NOTE | 2019-08-09 21:41 | PN ---
Progress Note - Progress Note Date of Service: 08/09/19 - Late entry from 0900 SOAP: Subjective: CC: Left 1st toe infection HPI: Ms. Mcgregor is a 54 yo female with PMH significant for DM2, HTN, diabetic neuropathy, COPD, osteoarthritis, anxiety, depression, CKD, drug induced seizures, HLD, and renal calculi. She presented to the hospital with concern for a left foot infection. Denies fever, chills, nausea, vomiting, or diarrhea. Objective: Vital Signs 08/09/19 08:46 Temperature 97.5 F Temperature Temporal Artery Source Scan Pulse Rate 69 Respiratory 16 Rate Blood Pressure 174/78 (mmHg) Blood Pressure 110 Mean O2 Sat by Pulse 95 Oximetry Patient on Room Yes Air Physical exam: General: NAD, sitting up in bed Neurological: Alert and Oriented x 4 HEENT: Moist MM, no thrush Cardiovascular: Heart rate regular Respiratory: Lung sounds clear Abdominal: Bowel sounds present; ABD soft, non tender and non distended Skin: No rash, DSG to the left foot clean, dry and intact. No surrounding erythema Laboratory Last Values WBC 4.8 10^3/uL (3.5-10.8) 08/09/19 05:55 RBC 3.54 10^6 /uL (3.70-4.87) L 08/09/19 05:55 Hgb 9.5 g/dL (12.0-16.0) L 08/09/19 05:55 Hct 29 % (35-47) L 08/09/19 05:55 MCV 82 fL (80-97) 08/09/19 05:55 MCH 27 pg (27-31) 08/09/19 05:55 MCHC 33 g/dL (31-36) 08/09/19 05:55 RDW 15 % (10-15) 08/09/19 05:55 Plt Count 232 10^3/uL (150-450) 08/09/19 05:55 MPV 7.0 fL (7.4-10.4) L 08/09/19 05:55 Neut % (Auto) 55.4 % 08/09/19 05:55 Lymph % (Auto) 31.2 % 08/09/19 05:55 [place] % (Auto) 8.2 % 08/09/19 05:55 Eos % (Auto) 4.8 % 08/09/19 05:55 Baso % (Auto) 0.4 % 08/09/19 05:55 Absolute Neuts (auto) 2.6 10^3/ul (1.5-7.7) 08/09/19 05:55 Absolute Lymphs (auto) 1.5 10^3/ul (1.0-4.8) 08/09/19 05:55 Absolute Monos (auto) 0.4 10^3/ul (0-0.8) 08/09/19 05:55 Absolute Eos (auto) 0.2 10^3/ul (0-0.6) 08/09/19 05:55 Absolute Basos (auto) 0.0 10^3/ul (0-0.2) 08/09/19 05:55 Absolute Nucleated RBC 0.0 10^3/ul 08/09/19 05:55 Nucleated RBC % 0.2 08/09/19 05:55 ESR 66 mm/Hr (0-29) H 08/07/19 14:54 INR (Anticoag Therapy) 0.89 (0.82-1.09) 08/07/19 14:54 APTT 30.3 seconds (26.0-38.0) 08/07/19 14:54 Fibrinogen 541.6 mg/dL (110.8-404.3) H 08/07/19 14:54 Sodium 140 mmol/L (135-145) 08/09/19 05:55 Potassium 4.4 mmol/L (3.5-5.0) 08/09/19 05:55 Chloride 109 mmol/L (101-111) 08/09/19 05:55 Carbon Dioxide 28 mmol/L (22-32) 08/09/19 05:55 Anion Gap 3 mmol/L (2-11) 08/09/19 05:55 BUN 22 mg/dL (6-24) 08/09/19 05:55 Creatinine 0.97 mg/dL (0.51-0.95) H 08/09/19 05:55 Est GFR ( Amer) 73.0 (>60) 08/09/19 05:55 Est GFR (Non-Af Amer) 60.3 (>60) 08/09/19 05:55 BUN/Creatinine Ratio 22.7 (8-20) H 08/09/19 05:55 Glucose 92 mg/dL (70-100) 08/09/19 05:55 Glucose Meter Confirm 473 mg/dL (70-100) H 08/07/19 21:06 Hemoglobin A1c 13.1 % (4.0-5.6) H 08/08/19 05:42 Lactic Acid 0.7 mmol/L (0.5-2.0) 08/07/19 17:39 Calcium 8.4 mg/dL (8.6-10.3) L 08/09/19 05:55 Magnesium 2.1 mg/dL (1.9-2.7) 08/09/19 05:55 Total Bilirubin 0.30 mg/dL (0.2-1.0) 08/09/19 05:55 AST 13 U/L (13-39) 08/09/19 05:55 ALT 7 U/L (7-52) 08/09/19 05:55 Alkaline Phosphatase 84 U/L (34-104) 08/09/19 05:55 Troponin I 0.00 ng/mL (<0.04) 08/07/19 14:54 C-Reactive Protein 6.12 mg/L (<8.01) 08/07/19 14:54 Total Protein 5.8 g/dL (6.4-8.9) L 08/09/19 05:55 Albumin 2.7 g/dL (3.2-5.2) L 08/09/19 05:55 Globulin 3.1 g/dL (2-4) 08/09/19 05:55 Albumin/Globulin Ratio 0.9 (1-3) L 08/09/19 05:55 Urine Color Yellow 08/08/19 11:07 Urine Appearance Cloudy 08/08/19 11:07 Urine pH 5.0 (5-9) 08/08/19 11:07 Ur Specific [place] 1.018 (1.010-1.030) 08/08/19 11:07 Urine Protein 3+(>=500 mg/dl) (Negative) A 08/08/19 11:07 Urine Ketones Negative (Negative) 08/08/19 11:07 Urine Blood Negative (Negative) 08/08/19 11:07 Urine Nitrate Negative (Negative) 08/08/19 11:07 Urine Bilirubin Negative (Negative) 08/08/19 11:07 Urine Urobilinogen Negative (Negative) 08/08/19 11:07 Ur Leukocyte Esterase Trace (Negative) A 08/08/19 11:07 Urine WBC (Auto) 2+(11-20/hpf) (Absent) A 08/08/19 11:07 Urine RBC (Auto) Trace(0-2/hpf) (Absent) 08/08/19 11:07 Ur Squamous Epith Cells Present (Absent) A 08/08/19 11:07 Urine Bacteria Absent (Absent) 08/08/19 11:07 Hyaline Casts Present (Absent) A 08/08/19 11:07 Urine Glucose 3+(>=500 mg/dl) (Negative) A 08/08/19 11:07 Microbiology 08/07/19 14:44 Aerobic Blood Culture - Preliminary Blood Venous No Growth Day 2 Anaerobic Blood Culture - Preliminary No Growth Day 2 08/07/19 14:54 Aerobic Blood Culture - Preliminary Blood Venous No Growth Day 2 Anaerobic Blood Culture - Preliminary No Growth Day 2 08/07/19 16:41 Skin and Soft Tissue MRSA/MSSA (PCR - Final Foot Left Mrsa Negative S.aureus Positive Gram Stain - Final Wound Culture - Final Staphylococcus Aureus Normal Padmini 08/08/19 11:07 Urine Culture - Final Urine No Growth (<1,000 CFU/mL) Assessment: 1. Left 1st toe osteomyelitis. MRI with cellulitis and early osteomyelitis. Chronic ulcer to the plantar aspect of the toe, been present since at least spring 2018. ABIs normal. Wound culture with staph aureus. 2. DM2 with peripheral neuropathy. 3. CKD. Plan: Continue Ancef 2gm IV Q8H. Will place PICC line today. Plan for discharge on Ancef 6gm IV continuous for 4-6 weeks, day 2. Weekly labs while on IV ABX: CBC, CMP, and CRP. Followup in the office in 2 weeks after discharge. Floor time: 25 minutes > 50% spent face to face with the patient discussing home IV ABX, followup appointment, and when to call the office (fever, rash and diarrhea).
[2019-08-10] MEDS: ceFAZolin* 2 GM in NS 100 MLS Q8H (Pharmacy Admix) IVPB SCH ×3 (01:14→17:38)
[2019-08-10] MEDS: Mometasone/Formoter 200/5 MDI INH SCH ×3 (01:48→20:48)
[2019-08-10] MEDS: SPIRIVA Respimat* (tiotropium) 2.5 mcg/inh Inhaler INH SCH (09:19)
[2019-08-10] MEDS: Insulin GLARGINE(*) 1 UNITS UNIT SUBCUT SCH (09:39)
[2019-08-10] MEDS: Lisinopril TAB* 5 MG PO SCH (09:39)
[2019-08-10] MEDS: Insulin LISPRO* 1 UNITS UNIT SUBCUT SCH ×4 (09:40→21:14)
[2019-08-10] MEDS: Acetaminophen TAB* 325 MG PO PRN (09:47)
--- NOTE | 2019-08-10 10:46 | PN ---
Progress Note - Progress Note Date of Service: 08/10/19 SOAP: Subjective: []Pt seen at bedside. Denies any fever, chills or increasing L great toe pain. Objective: []Gen: Appears well, NAD LLE: Left great toe edematous, no erythema. plantar surface with 1cm ulceration no discharge, no foul odor. Lacks sensation distally. Cap refill less than two seconds distally, DP2+. Assessment: []L great toe infection Plan: []Heel WB No surgery planned acutely. Will follow in house, FU Ortho office next week ID and wound care consulted. On ancef x 4-6 weeks Wound care rec: Recommend washing the area with soap and water. Apply a piece of calcium alginate the size of the wound and followed by rolled gauze or a small stockinette; change every other day. Vital Signs Temp 98.7 F 08/10/19 02:42 Pulse 75 08/10/19 09:20 Resp 16 08/10/19 09:20 BP 144/71 08/10/19 02:42 Pulse Ox 96 08/10/19 09:20 Intake & Output 08/09/19 08/10/19 08/10/19 18:59 06:59 18:59 Intake Total 2265 120 Output Total 0 Balance 2265 120 Intake: IV Fluids 20 NS (0.9%) 20 IVPB 100 cefazolin 100 Oral 2265 0 Output: Urine 0 Other: # Bowel Movements 0 Laboratory Last Values WBC 4.8 10^3/uL (3.5-10.8) 08/09/19 05:55 RBC 3.54 10^6 /uL (3.70-4.87) L 08/09/19 05:55 Hgb 9.5 g/dL (12.0-16.0) L 08/09/19 05:55 Hct 29 % (35-47) L 08/09/19 05:55 MCV 82 fL (80-97) 08/09/19 05:55 MCH 27 pg (27-31) 08/09/19 05:55 MCHC 33 g/dL (31-36) 08/09/19 05:55 RDW 15 % (10-15) 08/09/19 05:55 Plt Count 232 10^3/uL (150-450) 08/09/19 05:55 MPV 7.0 fL (7.4-10.4) L 08/09/19 05:55 Neut % (Auto) 55.4 % 08/09/19 05:55 Lymph % (Auto) 31.2 % 08/09/19 05:55 [place] % (Auto) 8.2 % 08/09/19 05:55 Eos % (Auto) 4.8 % 08/09/19 05:55 Baso % (Auto) 0.4 % 08/09/19 05:55 Absolute Neuts (auto) 2.6 10^3/ul (1.5-7.7) 08/09/19 05:55 Absolute Lymphs (auto) 1.5 10^3/ul (1.0-4.8) 08/09/19 05:55 Absolute Monos (auto) 0.4 10^3/ul (0-0.8) 08/09/19 05:55 Absolute Eos (auto) 0.2 10^3/ul (0-0.6) 08/09/19 05:55 Absolute Basos (auto) 0.0 10^3/ul (0-0.2) 08/09/19 05:55 Absolute Nucleated RBC 0.0 10^3/ul 08/09/19 05:55 Nucleated RBC % 0.2 08/09/19 05:55 ESR 66 mm/Hr (0-29) H 08/07/19 14:54 INR (Anticoag Therapy) 0.89 (0.82-1.09) 08/07/19 14:54 APTT 30.3 seconds (26.0-38.0) 08/07/19 14:54 Fibrinogen 541.6 mg/dL (110.8-404.3) H 08/07/19 14:54 Sodium 140 mmol/L (135-145) 08/09/19 05:55 Potassium 4.4 mmol/L (3.5-5.0) 08/09/19 05:55 Chloride 109 mmol/L (101-111) 08/09/19 05:55 Carbon Dioxide 28 mmol/L (22-32) 08/09/19 05:55 Anion Gap 3 mmol/L (2-11) 08/09/19 05:55 BUN 22 mg/dL (6-24) 08/09/19 05:55 Creatinine 0.97 mg/dL (0.51-0.95) H 08/09/19 05:55 Est GFR ( Amer) 73.0 (>60) 08/09/19 05:55 Est GFR (Non-Af Amer) 60.3 (>60) 08/09/19 05:55 BUN/Creatinine Ratio 22.7 (8-20) H 08/09/19 05:55 Glucose 92 mg/dL (70-100) 08/09/19 05:55 POC Glucose (mg/dL) 283 mg/dL (70-100) H 08/10/19 08:22 Glucose Meter Confirm 473 mg/dL (70-100) H 08/07/19 21:06 Hemoglobin A1c 13.1 % (4.0-5.6) H 08/08/19 05:42 Lactic Acid 0.7 mmol/L (0.5-2.0) 08/07/19 17:39 Calcium 8.4 mg/dL (8.6-10.3) L 08/09/19 05:55 Magnesium 2.1 mg/dL (1.9-2.7) 08/09/19 05:55 Total Bilirubin 0.30 mg/dL (0.2-1.0) 08/09/19 05:55 AST 13 U/L (13-39) 08/09/19 05:55 ALT 7 U/L (7-52) 08/09/19 05:55 Alkaline Phosphatase 84 U/L (34-104) 08/09/19 05:55 Troponin I 0.00 ng/mL (<0.04) 08/07/19 14:54 C-Reactive Protein 6.12 mg/L (<8.01) 08/07/19 14:54 Total Protein 5.8 g/dL (6.4-8.9) L 08/09/19 05:55 Albumin 2.7 g/dL (3.2-5.2) L 08/09/19 05:55 Globulin 3.1 g/dL (2-4) 08/09/19 05:55 Albumin/Globulin Ratio 0.9 (1-3) L 08/09/19 05:55 Urine Color Yellow 08/08/19 11:07 Urine Appearance Cloudy 08/08/19 11:07 Urine pH 5.0 (5-9) 08/08/19 11:07 Ur Specific [place] 1.018 (1.010-1.030) 08/08/19 11:07 Urine Protein 3+(>=500 mg/dl) (Negative) A 08/08/19 11:07 Urine Ketones Negative (Negative) 08/08/19 11:07 Urine Blood Negative (Negative) 08/08/19 11:07 Urine Nitrate Negative (Negative) 08/08/19 11:07 Urine Bilirubin Negative (Negative) 08/08/19 11:07 Urine Urobilinogen Negative (Negative) 08/08/19 11:07 Ur Leukocyte Esterase Trace (Negative) A 08/08/19 11:07 Urine WBC (Auto) 2+(11-20/hpf) (Absent) A 08/08/19 11:07 Urine RBC (Auto) Trace(0-2/hpf) (Absent) 08/08/19 11:07 Ur Squamous Epith Cells Present (Absent) A 08/08/19 11:07 Urine Bacteria Absent (Absent) 08/08/19 11:07 Hyaline Casts Present (Absent) A 08/08/19 11:07 Urine Glucose 3+(>=500 mg/dl) (Negative) A 08/08/19 11:07
--- NOTE | 2019-08-10 16:05 | PN ---
Subjective Date of Service: 08/10/19 Interval History: Patient agrees that she does not follow carb counting at home. Mentions that Dr. St has been considering switching from insulin pump back to frequent insulin sticks. Denies fever/chills, extremity pain, difficulty breathing, chest pain, abd pain. Family History: Unchanged from Admission Social History: Unchanged from Admission Past Medical History: Unchanged from Admission Objective Active Medications: Acetaminophen (Tylenol Tab*) 650 mg PO Q6H PRN PRN Reason: MILD PAIN or TEMP > 100.4 Last Admin: 08/10/19 09:47 Dose: 650 mg Albuterol/Ipratropium (Duoneb (Albuterol 2.5 Mg/Ipratropium 0.5 Mg)) 1 neb INH Q6H PRN PRN Reason: SOB/WHEEZING Dextrose (Dextrose 50% Vial 50 Ml*) 50 ml IV PUSH .FOR FS < 60 - SS PRN PRN Reason: FS < 60 Enoxaparin Sodium (Lovenox(*)) 40 mg SUBCUT Q24H [facility] Last Admin: 08/09/19 21:06 Dose: 40 mg Hydralazine HCl (Apresoline Iv*) 5 mg IV SLOW PU Q6H PRN PRN Reason: SYSTOLIC BP GREATER THAN: Last Admin: 08/09/19 13:07 Dose: 5 mg Cefazolin Sodium 2 gm/ Sodium (Chloride) 100 mls @ 200 mls/hr IVPB Q8H [facility] Last Admin: 08/10/19 09:40 Dose: 200 mls/hr Insulin Glargine (Lantus(*)) 40 units SUBCUT Q24H [facility] Last Admin: 08/10/19 09:39 Dose: 40 units Insulin Human Lispro (Humalog*) 0 units SUBCUT ACHS [facility]; Protocol Last Admin: 08/10/19 12:54 Dose: 6 units Lisinopril (Prinivil Tab*) 5 mg PO QAM [facility] Last Admin: 08/10/19 09:39 Dose: 5 mg Mometasone Furoate/Formoterol Fumar (Dulera 200/5 Mdi*) 2 puff INH BID [facility] Last Admin: 08/10/19 09:20 Dose: 2 puff Ondansetron HCl (Zofran Inj*) 4 mg IV Q6H PRN PRN Reason: NAUSEA Tiotropium [place] (Spiriva Respimat 2.5 Mcg) 2 puff INH DAILY [place] Last Admin: 08/10/19 09:19 Dose: 2 puff Vital Signs - 8 hr 08/10/19 08/10/19 08/10/19 08:10 09:20 12:20 Temperature 98.1 F 98 F Pulse Rate 74 75 66 Respiratory 24 16 22 Rate Blood Pressure 172/84 151/41 (mmHg) O2 Sat by Pulse 97 96 98 Oximetry Oxygen Devices in Use Now: None Appearance: Middle age white female, who appears older than stated age, sitting upright in bed, appearing in NAD Eyes: No Scleral Icterus, - - PERRL Ears/Nose/Mouth/Throat: Mucous Membranes Moist, - - poor dentition Neck: Trachea Midline Respiratory: Symmetrical Chest Expansion and Respiratory Effort, Clear to Auscultation Cardiovascular: NL Sounds; No Murmurs; No JVD, RRR Abdominal: - - abd soft, nontender, nondistended Extremities: No Edema, No Clubbing, Cyanosis, - - left foot in bandanges, no streaking or surrounding erythema Skin: No Rash or Ulcers Neurological: Alert and Oriented x 3, NL Muscle Strength and Tone Result Diagrams: 08/09/19 05:55 08/09/19 05:55 Additional Lab and Data: Lab Results 08/07/19 08/07/19 Range/Units 14:54 14:54 WBC 8.1 (3.5-10.8) 10^3/uL RBC 3.98 (3.70-4.87) 10^6 /uL Hgb 10.6 L (12.0-16.0) g/dL Hct 32 L (35-47) % MCV 81 (80-97) fL MCH 27 (27-31) pg MCHC 33 (31-36) g/dL RDW 15 (10-15) % Plt Count 274 (150-450) 10^3/uL MPV 7.2 L (7.4-10.4) fL Neut % (Auto) 77.5 % Lymph % (Auto) 13.9 % [place] % (Auto) 5.8 % Eos % (Auto) 2.1 % Baso % (Auto) 0.7 % Absolute Neuts (auto) 6.3 (1.5-7.7) 10^3/ul Absolute Lymphs (auto) 1.1 (1.0-4.8) 10^3/ul Absolute Monos (auto) 0.5 (0-0.8) 10^3/ul Absolute Eos (auto) 0.2 (0-0.6) 10^3/ul Absolute Basos (auto) 0.1 (0-0.2) 10^3/ul Absolute Nucleated RBC 0.0 10^3/ul Nucleated RBC % 0.0 Sodium Pending Potassium Pending Chloride Pending Carbon Dioxide Pending Anion Gap Pending BUN Pending Creatinine Pending Est GFR ( Amer) Pending Est GFR (Non-Af Amer) Pending BUN/Creatinine Ratio Pending Glucose Pending Calcium Pending Total Bilirubin Pending AST Pending ALT Pending Alkaline Phosphatase Pending Troponin I 0.00 (<0.04) ng/mL Total Protein Pending Albumin Pending Globulin Pending Albumin/Globulin Ratio Pending Microbiology and Other Data: Microbiology 08/07/19 14:44 Aerobic Blood Culture - Preliminary Blood Venous No Growth Day 1 Anaerobic Blood Culture - Preliminary No Growth Day 1 08/07/19 14:54 Aerobic Blood Culture - Preliminary Blood Venous No Growth Day 1 Anaerobic Blood Culture - Preliminary No Growth Day 1 08/07/19 16:41 Skin and Soft Tissue MRSA/MSSA (PCR - Final Foot Left Mrsa Negative S.aureus Positive Gram Stain - Final Wound Culture - Preliminary Staphylococcus Aureus Diagnostic Imagin. Exam Date: 08/07/19 1533 - MRI LOWER EXTREMITY LEFT W/O IMPRESSION: 1. First digit ulceration and associated cellulitis with possible early findings of osteomyelitis involving the first phalanges. 2. Mild left foot primary osteoarthritis. 3. Expected findings post first MTP joint fusion. 2. Exam Date: 05/18/19 - VL ANK/BRACHIAL INDICES IMPRESSION: Normal ankle-brachial indices. Assess/Plan/Problems-Billing Assessment: This is an 54 year old female with history of IDDM, uncontrolled with diabetic neuropathy that presents with chronic non healing left great toe wound. - Patient Problems (1) Non-healing open wound of toe Current Visit: Yes Status: Acute Code(s): S91.109A - UNSP OPEN WOUND OF UNSP TOE(S) W/O DAMAGE TO NAIL, INIT SNOMED Code(s): 053675037 Comment: - Noted as an oupatient in April of this year with no follow up - MRI as above - Ortho and ID following - No plan for surgery per ortho - + for staph, changed to Ancef 2gm Q8h - PICC placed today and patient educated, however awaiting insurance approval for ancef prescription - Surrounding cellulitis is improving (2) Hypertension Current Visit: Yes Status: Acute Code(s): I10 - ESSENTIAL (PRIMARY) HYPERTENSION SNOMED Code(s): 69720702 Comment: - prn hydralazine - Started lisinopril - improving - will need PCP follow up (3) Diabetes mellitus, insulin dependent (IDDM), uncontrolled Current Visit: No Status: Chronic Code(s): E10.65 - TYPE 1 DIABETES MELLITUS WITH HYPERGLYCEMIA SNOMED Code(s): 27794059 Comment: - BG >600 at admission, no anion gap - Responded to fluids and insulin but had symptomatic hypoglycemia earlier in hospital stay, required IV dextrose. This is likely because patient is eating much fewer carbs here than she does at home - 40 U lantus daily with SS lispro - A1C=13.7 - CC diet - Sugars remain labile in presence of uncontrolled infection - It appears patient follows with endocrinology, will discuss with [facility] diabetic nurse and should have further f/u with Dr. St - Was seen by manager utilization (4) COPD (chronic obstructive pulmonary disease) Current Visit: No Status: Acute Code(s): J44.9 - CHRONIC OBSTRUCTIVE PULMONARY DISEASE, UNSPECIFIED SNOMED Code(s): 49458327 Comment: - No evidence of exacerbation - Continue dulera (5) DVT prophylaxis Current Visit: No Status: Acute Code(s): XTR1284 - SNOMED Code(s): 433779040 Comment: - SQ heparin (6) Full code status Current Visit: No Status: Acute Code(s): Z78.9 - OTHER SPECIFIED HEALTH STATUS SNOMED Code(s): 863643841 Comment: Status and Disposition: Inpatient for IV atbx and wound care. Cannot d/c yet today due to insurance approval for IV antibiotics at home
[2019-08-10] MEDS: Enoxaparin(*) 40 MG/0.4 ML SYR SUBCUT SCH (21:14)
[2019-08-11] MEDS: ceFAZolin* 2 GM in NS 100 MLS Q8H (Pharmacy Admix) IVPB SCH ×2 (01:27→08:57)
[2019-08-11 05:18] VITALS: BP 123/54
[2019-08-11] MEDS: Mometasone/Formoter 200/5 MDI INH SCH (08:00)
[2019-08-11] MEDS: SPIRIVA Respimat* (tiotropium) 2.5 mcg/inh Inhaler INH SCH (08:00)
[2019-08-11] MEDS: Lisinopril TAB* 5 MG PO SCH (08:58)
[2019-08-11] MEDS: Insulin LISPRO* 1 UNITS UNIT SUBCUT SCH ×2 (08:58→13:02)
[2019-08-11] MEDS ORDERED: Insulin GLARGINE(*) 1 UNITS UNIT SUBCUT SCH ×2 (09:00)
--- NOTE | 2019-08-11 12:13 | DS ---
CC: Dr. Zoya Patten * DATE OF ADMISSION: 08/07/2019. DATE OF DISCHARGE: 08/11/2019. ATTENDING PHYSICIAN WHILE IN THE HOSPITAL: Dr. Timothy Pena * (dictated by DAREN Mello). CONSULTING ORTHOPEDIST: Dr. Chapman, Dr. Elizabeth. CONSULTING INFECTIOUS DISEASE SPECIALIST: Dr. Yohan Shaw, Kala Pan NP. PRIMARY CARE PHYSICIAN: Dr. Zoya Patten. OUTPATIENT NET DEVELOPER SOFTWARE ENGINEER C: Dr. St. PRIMARY DIAGNOSIS: 1. Left great toe ulcer with infection and surrounding cellulitis. 2. Early first left toe osteomyelitis. 3. Uncontrolled diabetes. SECONDARY DIAGNOSES: 1. Diabetes mellitus type 2 with use of insulin pump. 2. Hypertension. 3. Peripheral neuropathy secondary to diabetes mellitus type 2. 4. COPD. 5. Osteoarthritis. 6. Anxiety. 7. Depression. 8. CKD. 9. History of drug-induced seizures. 10. Hyperlipidemia. 11. Nephrolithiasis. PERTINENT STUDIES WHILE IN THE HOSPITAL: 1. Left foot x-ray on 08/07/2019: No acute osseous injury. No appreciable erosion or periosteal reaction. Plain radiograph findings of osteomyelitis are relatively late findings. If there is persistent clinical concern for osteomyelitis, recommend correlation with follow-up imaging. 2. Left lower extremity MRI on 08/07/2019: Impression: First digit ulceration and associated cellulitis with possible early findings of osteomyelitis involving the first phalanges. Mild left foot primary osteoarthritis. Expected findings of first MTP joint fusion. 3. Chest x-ray on 08/10/2019 confirming PICC placement. PERTINENT LABORATORY DATA: Glucose 677 at admission, later with hypoglycemic episode on 08/08/2019 of 53; hemoglobin A1c 13.1. HISTORY OF PRESENT ILLNESS/HOSPITAL COURSE: Lesly Mcgregor is a 54-year-old white female with a past medical history significant for COPD, diabetes mellitus type 2 with peripheral neuropathy and with insulin pump who presented with a worsening left great toe ulcer on 08/07/2019. The patient has had this wound ulcer for several months. She was seen as an outpatient by her Orthopedist Dr. Elizabeth in the office on the date of admission and was directed to the emergency department due to the worsening clinical appearance of this ulcer. For further details, please see the admitting history and physical written by DAREN Cassidy. In brief, the patient was found to have an infection of her left great toe ulcer. She was initially treated empirically with Vancomycin, Cefepime, and Flagyl. Ultimately, her wound culture demonstrated Methicillin sensitive staph aureus and was changed to Cefazolin 2 gm q.8 hours. She was seen in consultation by the Infectious Disease team who recommended four to six weeks of IV antibiotics once the MRA findings of early osteomyelitis were found. The Orthopedic team saw the patient in consultation as well who did not recommend surgical intervention at this time and did agree with conservative medical management with IV antibiotics at this time. The patient had a PICC placed during her hospital stay and was educated regarding the home IV infusions. She was without leukocytosis during her hospital stay and was additionally afebrile during the entirety of her hospital stay. The patient was found to be frequently hypertensive and was started on Lisinopril during her hospital stay. I do note that the patient's home medication list listed Ipratropium nebulizers as needed and this is not an effective use of LAMA's, and I have written more about this in the discharge summary below. While she was in the hospital, she was also seen by a registered phlebotomist part time and by the [facility] diabetic nurse for further education regarding her diabetes management. As previously mentioned, she did have a hypoglycemic event and the patient did admit that she eats far fewer carbs in the hospital than she does when she is at home. PHYSICAL EXAMINATION ON THE DAY OF DISCHARGE: General: White female who appears older than stated age, sitting upright in the hospital bed, appearing comfortable and in no acute distress. HEENT: Eyes: PERRLA. Sclerae anicteric. ENT: Mucous membranes are moist. Poor dentition. Neck: Supple without JVD. Lungs: Clear to auscultation throughout. Cardio: Regular rate and rhythm without murmurs, rubs, or gallops. Abdomen: Soft, nontender, nondistended. Extremities: No clubbing, cyanosis, or edema. No surrounding erythema or streaking on left lower extremity. Neuro: The patient is alert and oriented times three. No focal deficits. Able to move all extremities. No tremors. Skin: Warm, dry, intact. DISCHARGE INSTRUCTIONS: DIET: Carbohydrate consistent diet. ACTIVITY: Normal activity as tolerated. The patient was advised to decrease her carbohydrate intake. She was advised to return to the hospital if she is experiencing fever or chills, increasing erythema around the wound, drainage from her toe wound, streaking of her lower extremity. She will be receiving 6 gm IV continuous Cefazolin at home via home infusion via her PICC line. She will be following up with Infectious Disease in two weeks and the exact time length will be determined at this follow-up. During her hospital stay, four to six weeks is advised. She will be following up with her orthopedist Dr. Elizabeth. She needs close follow-up with Dr. St and she already has an appointment scheduled for August 29. She will followed outpatient with the [facility] diabetic nurse. She should follow-up with her primary care provider in one week regarding her hospital stay. At this time, her blood pressure should be checked as she was hypertensive and started on a new medication for this. She should have repeat CBC, CMP, and CRP in one week. She is advised to performed wound care every other day with light washing of the wound, applying calcium alginate, and covering the wound with new bandages. DISCHARGE MEDICATIONS: 1. Insulin Lispro per insulin pump. 2. Insulin Glargine 40 units subcu b.i.d. prn if pump fails. 3. Albuterol HFA inhaler one puff inhaled q.4 hours prn shortness of breath or wheezing. 4. Tramadol 50 mg p.o. q.12 hours prn severe pain. 5. Advair Diskus 500-50 one puff inhaled b.i.d. 6. Spiriva two puffs inhaled daily. 7. Lisinopril 5 mg p.o. daily. 8. Cefazolin 6 gm IV continuously. 9. Calcium Alginate. CONDITION ON DISCHARGE: Stable. DISPOSITION: To home. TIME SPENT: Approximately 35 minutes were spent on this discharge, approximately half that time was spent at the bedside discussing the plan of care with the patient and evaluating the patient. DAREN MELLO [id number]/CPS #: [id number] MTDD
== END 2019-08-11 13:00 | disposition home health service (06) | DRG 344 ==
LOC: ED 13:29 → MED 16:42
PROVIDERS: ADMIT Internal Medicine; ATTEND Internal Medicine
DX: E11.621 Type 2 diabetes mellitus with foot ulcer (principal); M86.9 Osteomyelitis, unspecified; E11.22 Type 2 diabetes mellitus with diabetic chronic kidney disease; E11.42 Type 2 diabetes mellitus with diabetic polyneuropathy; I12.9 Hypertensive chronic kidney disease with stage 1 through stage 4 chronic kidney disease, or unspecified chronic kidney disease; J44.9 Chronic obstructive pulmonary disease, unspecified; F41.9 Anxiety disorder, unspecified; N18.9 Chronic kidney disease, unspecified; E78.5 Hyperlipidemia, unspecified; L08.9 Local infection of the skin and subcutaneous tissue, unspecified; L97.529 Non-pressure chronic ulcer of other part of left foot with unspecified severity; E11.00 Type 2 diabetes mellitus with hyperosmolarity without nonketotic hyperglycemic-hyperosmolar coma (NKHHC); F32.9 Major depressive disorder, single episode, unspecified; L03.032 Cellulitis of left toe; B95.61 Methicillin susceptible Staphylococcus aureus infection as the cause of diseases classified elsewhere; Z96.41 Presence of insulin pump (external) (internal); N20.0 Calculus of kidney; M19.072 Primary osteoarthritis, left ankle and foot; E86.0 Dehydration; Z79.4 Long term (current) use of insulin; Z79.899 Other long term (current) drug therapy; Z88.8 Allergy status to other drugs, medicaments and biological substances; Z88.6 Allergy status to analgesic agent; Z91.040 Latex allergy status; Z87.891 Personal history of nicotine dependence
CPT/HCPCS: 36415; 71045; 80048; 80053; 81003; 81015; 82947; 83036; 83605; 83735; 84484; 85025; 85384; 85610; 85652; 85730; 86140; 87040; 87070; 87077; 87086; 87186; 87205; 87640; 87641; 94640; 99284; A9270-GY; J0360; J0690; J0692; J1650; J2543; J3475; J3535